=== PATIENT | male | born 1935 | race Caucasian/White ===

== ENCOUNTER 2017-02-03 12:47 | Outpatient (CLI) | payer MEDICARE, OTHER ==
[~2017-02-03] VITALS: Ht 170.2 cm; Wt 68.9 kg
[~2017-02-03 12:47] MED LIST: ALFU10TA11 PO; ALFUZOSIN HCL PO; AMLO10TA PO; AMLO10TA2 PO; APIX5TAB PO; ASP81CT PO; ATOR40TA PO; ATOR40TA70 PO; BETH25TA PO; Bethanechol Chl PO; DEXL60CA PO; DIGO250T15 PO; DILT240C90 PO; MELO7.5T46 PO; METF500T4 PO; METO-272 PO; METO50TA7; MTF500T PO; OMEP20CA12 PO; OMEP40CA36 PO; OMG1KC; VALS160T2 PO; VALS320T14 PO; VLS80C PO
[2017-02-03] MEDS ORDERED: LIDOCAINE 1% INJ 20 ML (XYLOCAINE) VIAL ONE (12:56)
[2017-02-03] MEDS ORDERED: TRIAMCINOLONE ACET (KENALOG-40) 40 MG/ML 1 ML VIAL ONE (12:56)
[2017-02-03] MEDS ORDERED: BUPIVACAINE 0.25% 30 ML (SENSORCAINE) VIAL ONE (12:56)
[2017-02-03 13:09] VITALS: BP 155/67
[2017-02-03 13:48] VITALS: BP 172/75
--- NOTE | 2017-02-03 14:33 | Pain Medicine-Procedure ---
Procedure Pre-Op/Post-Op Diagnosis Diagnosis: sacrococcygeal disorder Indications for Operation Hip pain Attending Surgeon Fausto Procedure Date of Service: Feb 03, 2017 Procedure: Flouroscopic guided bilateral sacroiliac joint injection PROCEDURE IN DETAIL: After obtaining informed consent from the patient, the patient's chart was reviewed. The patient was then brought to the procedure room and placed in the prone position. A time out was performed. The back was prepped with antiseptic solution and under fluoroscopic guidance the patient's sacroiliac joint on both sides was identified. Attention was first turned to the right sacroiliac joint injection where 2 mL's of 1% lidocaine was used to anesthetize the skin and then two 22-gauge 3.5 inch spinal needles were inserted and advanced under flouroscopic guidance until they were in the lower 1 /3 of the right sacroiliac joint. Next, attention was then turned to the left sacroiliac joint injection where 2 mL's of 1% lidocaine was used to anesthetize the skin and then two 22-gauge 3.5 inch spinal needles were inserted and advance under flouroscopic guidance until they were in the lower 1/3 of the sacroiliac joint on the left side. After negative aspiration, each needle was injected with 40 mg of Kenalog along with 2 mL's of 0.25% marcaine. All needles were then flushed with 1% lidocaine and then removed. Band-Aids were applied to all the sites and the patient tolerated the procedure well and was taken to the recovery area in stable condition. Complications None ERIKA PARKER MD Feb 03, 2017 2:33 pm
== END 2017-02-03 13:50 ==
LOC: CARD 12:47
PROVIDERS: ATTEND Pain Medicine Pain Medicine
DX: M53.3 Sacrococcygeal disorders, not elsewhere classified (principal); Z79.01 Long term (current) use of anticoagulants; Z79.899 Other long term (current) drug therapy
CPT/HCPCS: 27096

== ENCOUNTER → 2017-06-06 | Outpatient (CLI) | payer MEDICARE, OTHER ==
--- NOTE | 2017-06-06 11:24 | Diagnostic Imaging Report ---
EXAMINATION: Modified barium swallow. Indication: Dysphagia Different consistencies of fluid and food was given mixed with barium and swallowing was visualized under fluoroscopy. FLUOROSCOPY TIME: 39 seconds FINDINGS: No aspiration seen. There is however a Zenker's diverticulum seen with its opening at C5 level and projecting anterior to C5 and C6 vertebral bodies with an impression upon the upper esophagus. IMPRESSION: Zenker's diverticulum . Report was faxed to office of Dr. Howe by tamia at 11:25 am. Dictated by: Dictated on workstation # [id number]
== END ==
LOC: RAD 10:17
PROVIDERS: ATTEND Family Medicine
DX: K22.5 Diverticulum of esophagus, acquired (principal)
CPT/HCPCS: 74230

== ENCOUNTER 2017-07-07 00:39 | Emergency (ER) | payer MEDICARE, OTHER ==
[~2017-07-07] VITALS: Ht 170.2 cm; Wt 68.0 kg
[2017-07-07 01:45] LABS: BASOPHILS # (AUTO) 0.1 10^3/uL (0.0-0.1); BASOPHILS % (AUTO) 1 % (0-10); EOSINOPHILS # (AUTO) 0.4 10^3/uL (0.0-0.3); EOSINOPHILS % (AUTO) 6 % (0-10); LYMPHOCYTES # (AUTO) 1.5 X 10^3 (1.0-4.0); LYMPHOCYTES % (AUTO) 24 % (12-44); MEAN CORPUSCULAR HEMOGLOBIN 33 PG (25-34); MEAN CORPUSCULAR HGB CONC 33 G/DL (32-36); MEAN CORPUSCULAR VOLUME 99 FL (80-99); MEAN PLATELET VOLUME 10.2 FL (7.4-10.4); MONOCYTES # (AUTO) 0.8 X 10^3 (0.0-1.0); MONOCYTES % (AUTO) 14 % (0-12); NEUTROPHILS # (AUTO) 3.5 X 10^3 (1.8-7.8); NEUTROPHILS % (AUTO) 56 % (42-75); PLATELET COUNT 187 10^3/uL (130-400); RED BLOOD COUNT 4.58 10^6/uL (4.35-5.85); RED CELL DISTRIBUTION WIDTH 12.5 % (10.0-14.5); WHITE BLOOD COUNT 6.2 10^3/uL (4.3-11.0)
[2017-07-07 01:45] LABS: BILIRUBIN,URINE NEGATIVE (NEGATIVE); KETONES,URINE NEGATIVE (NEGATIVE); LEUKOCYTE ESTERASE ,URINE 2+ (NEGATIVE); NITRITE,URINE NEGATIVE (NEGATIVE); PH,URINE 6.5 (5-9); PROTEIN,URINE NEGATIVE (NEGATIVE); UROBILINOGEN,URINE NORMAL (NORMAL)
[2017-07-07 01:51] LABS: SQUAMOUS EPITHELIAL CELL,UR RARE /HPF; WBC,URINE RARE /HPF
[2017-07-07] MEDS ORDERED: KETO120S11 (02:01)
[2017-07-07 02:03] LABS: ALANINE AMINOTRANSFERASE 19 U/L (0-55); ANION GAP 10 MMOL/L (5-14); ASPARTATE AMINO TRANSFERASE 19 U/L (5-34); BILIRUBIN,TOTAL 0.4 MG/DL (0.1-1.0); BLOOD UREA NITROGEN 10 MG/DL (7-18); BUN/CREATININE RATIO 13; CALCIUM 9.4 MG/DL (8.5-10.1); CARBON DIOXIDE 23 MMOL/L (21-32); CHLORIDE 105 MMOL/L (98-107); CREATININE SERUM 0.79 MG/DL (0.60-1.30); GFR ESTIMATED > 60; GLUCOSE 98 MG/DL (70-105); POTASSIUM 4.1 MMOL/L (3.6-5.0); SODIUM 138 MMOL/L (135-145); TOTAL PROTEIN 6.9 GM/DL (6.4-8.2); hs C REACTIVE PROTEIN 0.12 MG/DL (0.00-0.50)
--- NOTE | 2017-07-07 03:14 | ED General ---
General Chief Complaint: General Problems/Pain Stated Complaint: CHILLS SWEATS Nursing Triage Note: PT AWOKE AFTER MIDNIGHT FEELING SWEATY THEN FELT CHILLED. PT HAS NOT TAKEN A TEMPERATURE AT HOME. NO URINARY SX, NO COUGH. TEMP 97.2 TYMPANIC, 98.2 TEMPORAL NOW Nursing Sepsis Screen: No Definite Risk Source of Information: Patient Exam Limitations: No Limitations History of Present Illness Time Seen by Provider: 00:49 Initial Comments This 81-year-old gentleman presents to the emergency room with complaints of persistent chills this evening. He woke up not feeling well and had sweats and chills without any measured fever. He denies any other symptoms such as cough, pain, dysuria, etc. By the time of my physical assessment, he was feeling much improved. Allergies and Home Medications Allergies Coded Allergies: No Known Drug Allergies (Verified , 07/23/16) Home Medications Alfuzosin HCl 10 Mg Tab.er.24h, 10 MG PO DAILY@1900, (Reported) Amlodipine Besylate 10 Mg Tablet, 10 MG PO DAILY, (Reported) Apixaban 5 Mg Tablet, 5 MG PO BID, #60 Ref 5 Prescribed by: CAMELIA MAYES on 07/24/16 1628 Aspirin 81 Mg Tablet, 81 MG PO HS, (Reported) Atorvastatin Calcium 40 Mg Tablet, 40 MG PO HS, (Reported) Bethanechol Chloride 25 Mg Tablet, 25 MG PO QID, (Reported) Dexlansoprazole 60 Mg Cap.dr.bp, 60 MG PO DAILY, (Reported) Digoxin 250 Mcg Tablet, 0.25 MG PO DAILY, #30 Ref 4 Prescribed by: CRISS FOSTER on 07/27/16 1314 Diltiazem HCl 240 Mg Cap.er.24h, 240 MG PO DAILY, #30 Ref 4 Prescribed by: CRISS FOSTER on 07/27/16 1314 Ketoconazole 120 Ml Shampoo, (Reported) Metformin HCl 500 Mg Tablet, 500 MG PO BID, (Reported) Metoprolol Succinate 50 Mg Tab.er.24h, 50 MG PO DAILY, (Reported) Valsartan 320 Mg Tablet, 320 MG PO DAILY, (Reported) Constitutional: see HPI EENTM: no symptoms reported Respiratory: no symptoms reported Cardiovascular: no symptoms reported Gastrointestinal: no symptoms reported Genitourinary: no symptoms reported Musculoskeletal: no symptoms reported Skin: no symptoms reported Psychiatric/Neurological: No Symptoms Reported Hematologic/Lymphatic: No Symptoms Reported Past Bmwhqcv-Sdldnm-Zwnbqr Hx Patient Social History Alcohol Use: Occasionally Uses Recreational Drug Use: No Smoking Status: Former Smoker Former Smoker, Quit: Jul 26, 1984 Recent Foreign Travel: No Contact w/Someone Who Travel: No Recent Infectious Disease Expo: No Recent Hopitalizations: No Immunizations Up To Date Tetanus Booster (TDap): Unknown Date of Pneumonia Vaccine: Jul 27, 2013 Date of Influenza Vaccine: Jul 09, 2016 Seasonal Allergies Seasonal Allergies: No Surgeries History of Surgeries: Yes (CATARACTS,BACK SURG., ING HERNIA REPAIR, R ROTATOR CUFF) Surgeries: Neurological, Orthopedic Respiratory History of Respiratory Disorde: No Currently Using CPAP: No Currently Using BIPAP: No Cardiovascular History of Cardiac Disorders: Yes (CARDIOMEGALY, PAROXYSMAL A FIB, RHEUMATIC VALVE DZ: TRICUSPID, MITRAL) Cardiac Disorders: Atrial Fibrillation, Coronary Artery Disease, High Cholesterol, Hypertension, Valvular Heart Disease Neurological History of Neurological Disord: Yes (DYSPHAGIA HX) Reproductive System Hx Reproductive Disorders: No Sexually Transmitted Disease: No HIV/AIDS: No Genitourinary Genitourinary Disorders: Benign Prostatic Hyperpl Gastrointestinal History of Gastrointestinal Di: Yes Gastrointestinal Disorders: Gastroesophageal Reflux, Diverticulosis Musculoskeletal History of Musculoskeletal Dis: Yes (ORTHO SURGERIES ABOVE) Musculoskeletal Disorders: Arthritis, Chronic Back Pain Endocrine History of Endocrine Disorders: Yes (DM TYPE II) Endocrine Disorders: Diabetes, Non-Insulin dep HEENT HEENT Disorders: Cataract Loss of Vision: Denies Hearing Impairment: Denies Cancer History of Cancer: No Psychosocial History of Psychiatric Problem: No Integumentary History of Skin or Integumenta: No Blood Transfusions History of Blood Disorders: No Family Medical History Significant Family History: No Pertinent Family Hx Family Medial History: FH: liver disease 19 MOTHER FH: lung cancer 19 FATHER Physical Exam Vital Signs Vital Sign - Last 12Hours 07/07/17 01:17 Temp 98.2 Pulse 82 Resp 20 B/P (MAP) 173/76 Pulse Ox 95 O2 Delivery Room Air Capillary Refill : Less Than 3 Seconds General Appearance: No Apparent Distress, WD/WN HEENT: PERRL/EOMI, Normal ENT Inspection, Pharynx Normal Neck: Normal Inspection Respiratory: Lungs Clear, Normal Breath Sounds, No Accessory Muscle Use, No Respiratory Distress Cardiovascular: Regular Rate, Rhythm, No Edema, No Murmur Gastrointestinal: Normal Bowel Sounds, Non Tender, Soft Extremity: Normal Inspection, No Pedal Edema Neurologic/Psychiatric: Alert, Oriented x3, No Motor/Sensory Deficits, 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 He was afebrile. He was dismissed home with no further evaluation or interventions at his request. Departure Impression Impression: Primary Impression: Chills Disposition: 01 HOME, SELF-CARE Condition: Improved Departure-Patient Inst. Decision time for Depature: 03:05 Referrals: ALBARO BRADFORD DO (PCP/Family) Primary Care Physician Patient Instructions: NO INSTRUCTIONS GIVEN Add. Discharge Instructions: Return to care if symptoms worsen. Follow up with your primary care provider if symptoms persist. All discharge instructions reviewed with patient and/or family. Voiced understanding. PRASHANTH AMOS MD Jul 07, 2017 03:14
[2017-07-07 03:28] VITALS: BP 146/71
== END 2017-07-07 03:28 | disposition home or self-care (01) ==
LOC: EDUNIT# 00:39 → ER 00:42
DX: R68.83 Chills (without fever) (principal); I48.0 Paroxysmal atrial fibrillation; I25.10 Atherosclerotic heart disease of native coronary artery without angina pectoris; E78.00 Pure hypercholesterolemia, unspecified; I10 Essential (primary) hypertension; N40.0 Benign prostatic hyperplasia without lower urinary tract symptoms; M19.90 Unspecified osteoarthritis, unspecified site; E11.9 Type 2 diabetes mellitus without complications; Z80.1 Family history of malignant neoplasm of trachea, bronchus and lung; Z87.19 Personal history of other diseases of the digestive system; Z95.2 Presence of prosthetic heart valve; Z87.891 Personal history of nicotine dependence; Z79.84 Long term (current) use of oral hypoglycemic drugs; Z79.01 Long term (current) use of anticoagulants; Z79.82 Long term (current) use of aspirin
CPT/HCPCS: 36415; 80053; 81000; 85025; 86141

== ENCOUNTER → 2017-07-29 | Outpatient (CLI) | payer MEDICARE, OTHER ==
[~2017-07-29] MED LIST changes: +KETO120S11
== END ==
LOC: RAD 13:54
PROVIDERS: ATTEND Family Medicine
DX: J43.9 Emphysema, unspecified (principal); J84.10 Pulmonary fibrosis, unspecified
CPT/HCPCS: 71020

== ENCOUNTER 2017-08-04 17:06 | Inpatient (IN) | payer MEDICARE, OTHER ==
[~2017-08-04] VITALS: Ht 170.2 cm; Wt 61.3 kg
[~2017-08-04 17:06] MED LIST changes: -KETO120S11; +KETO120S11 TOP
[2017-08-04] MEDS ORDERED: ADENOSINE 6 MG/2 ML (ADENOCARD) VIAL IV ONE (17:20)
[2017-08-04] MEDS ORDERED: DILTIAZEM 100 MG/VIAL (CARDIZEM) ADD-VANTAGE IV ONE (17:25)
[2017-08-04] MEDS ORDERED: SODIUM CHLORIDE (ADD-VANTAGE) 100 ML IV ONE (17:26)
[2017-08-04 17:39] LABS: BASOPHILS % (AUTO) 0 % (0-10); EOSINOPHILS % (AUTO) 0 % (0-10); LYMPHOCYTES # (AUTO) 0.5 X 10^3 (1.0-4.0); LYMPHOCYTES % (AUTO) 2 % (12-44); MEAN CORPUSCULAR HEMOGLOBIN 32 PG (25-34); MEAN CORPUSCULAR HGB CONC 34 G/DL (32-36); MEAN CORPUSCULAR VOLUME 94 FL (80-99); MEAN PLATELET VOLUME 10.5 FL (7.4-10.4); MONOCYTES # (AUTO) 1.9 X 10^3 (0.0-1.0); MONOCYTES % (AUTO) 10 % (0-12); NEUTROPHILS # (AUTO) 17.4 X 10^3 (1.8-7.8); NEUTROPHILS % (AUTO) 88 % (42-75); PLATELET COUNT 267 10^3/uL (130-400); RED BLOOD COUNT 4.39 10^6/uL (4.35-5.85); RED CELL DISTRIBUTION WIDTH 12.9 % (10.0-14.5); WHITE BLOOD COUNT 19.8 10^3/uL (4.3-11.0)
[2017-08-04 17:44] LABS: INR 2.6 (0.8-1.4); PROTHROMBIN TIME PATIENT 27.7 SEC (12.2-14.7)
[2017-08-04] MEDS ORDERED: DILTIAZEM DRIP 100 MG in SODIUM CHLORIDE (ADD-VANTAGE) 100 ML IV SCH (17:45)
[2017-08-04 17:55] LABS: ALANINE AMINOTRANSFERASE 26 U/L (0-55); ALBUMIN 3.6 GM/DL (3.2-4.5); ANION GAP 11 MMOL/L (5-14); ASPARTATE AMINO TRANSFERASE 30 U/L (5-34); BILIRUBIN,TOTAL 0.8 MG/DL (0.1-1.0); BLOOD UREA NITROGEN 30 MG/DL (7-18); BUN/CREATININE RATIO 26; CALCIUM 9.6 MG/DL (8.5-10.1); CARBON DIOXIDE 22 MMOL/L (21-32); CHLORIDE 96 MMOL/L (98-107); CREATININE SERUM 1.15 MG/DL (0.60-1.30); GFR ESTIMATED > 60; GLUCOSE 166 MG/DL (70-105); MAGNESIUM 1.8 MG/DL (1.8-2.4); POTASSIUM 3.9 MMOL/L (3.6-5.0); SODIUM 129 MMOL/L (135-145)
--- NOTE | 2017-08-04 17:59 | Diagnostic Imaging Report ---
INDICATION: Feeling different while walking, dizziness, no chest complaints. COMPARISON STUDY: Chest two views from July 29. FINDINGS: Frontal and lateral views of the chest again demonstrate diffuse interstitial fibrosis. New infiltrate or atelectasis are present in the left base. Heart size is slightly enlarged. Vascularity is within normal limits. There is calcification of the aorta. Postoperative changes are seen in the right shoulder. IMPRESSION: Emphysema with new infiltrates or atelectasis in the left lung base. Dictated by: Dictated on workstation # [id number]
[2017-08-04 18:03] LABS: BAND NEUTROPHILS 8 %; BASOPHILS % (MANUAL) 0 %; EOSINOPHILS % (MANUAL) 0 %; LYMPHOCYTES % (MANUAL) 0 %; NEUTROPHILS % (MANUAL) 83 %; hs C REACTIVE PROTEIN 23.47 MG/DL (0.00-0.50)
[2017-08-04] MEDS ORDERED: NS IV 500 ML 500 ML IV ONE (18:06)
--- NOTE | 2017-08-04 18:10 | ED General ---
General Chief Complaint: Cardiac/General Problems Stated Complaint: DIFF WALKING/LOSS OF APPETITE Nursing Triage Note: Had esophegeal sx 2 weeks ago. healing incisions to left side of neck. C/O weankness and legs buckling since last night. did fall once but no loc or head injury- no injury noted. SOA noted. Required assist in restroom- unable to give urine sample Nursing Sepsis Screen: No Definite Risk Source of Information: Patient, Family, Old Records Exam Limitations: No Limitations (PRASHANTH AMOS MD) History of Present Illness Time Seen by Provider: 17:16 Initial Comments This 81-year-old gentleman presents to the emergency room with complaints of feeling weak. He was seen in Dr. Bradford's office and found to have tachycardia. He had a Zenker's diverticulum operated on by Dr. Estrada July 24. He has had some difficulty swallowing, particularly pills. He does not have any trouble swallowing water. He reports that yesterday his legs "buckled" and he fell without injury. He appears dyspneic during my assessment. Heart rate on the monitor is noted to be in the 150s and regular. Neither patient nor family recalled having any prior problems with arrhythmia. However, review of chart it is noted that he had atrial tachycardia previously. In fact he sees Dr. Hobson and is on Cardizem, Toprol-XL, digoxin, and Eliquis. He reports compliance with all of his medications. Patient has had some cough without fever. (PRASHANTH AMOS MD) Allergies and Home Medications Allergies Coded Allergies: No Known Drug Allergies (Verified , 08/04/17) Home Medications Alfuzosin HCl 10 Mg Tab.er.24h, 10 MG PO DAILY@1900, (Reported) Amlodipine Besylate 10 Mg Tablet, 10 MG PO DAILY, (Reported) Apixaban 5 Mg Tablet, 5 MG PO BID, #60 Ref 5 Prescribed by: CAMELIA MAYES on 07/24/16 1628 Aspirin 81 Mg Tablet, 81 MG PO HS, (Reported) Atorvastatin Calcium 40 Mg Tablet, 40 MG PO HS, (Reported) Bethanechol Chloride 25 Mg Tablet, 25 MG PO QID, (Reported) Dexlansoprazole 60 Mg Blaine., 60 MG PO DAILY, (Reported) Digoxin 250 Mcg Tablet, 0.25 MG PO DAILY, #30 Ref 4 Prescribed by: CRISS HOBSON on 07/27/16 1314 Diltiazem HCl 240 Mg Cap.er.24h, 240 MG PO DAILY, #30 Ref 4 Prescribed by: CRISS HOBSON on 07/27/16 1314 Ketoconazole 120 Ml Shampoo, (Reported) Metformin HCl 500 Mg Tablet, 500 MG PO BID, (Reported) Metoprolol Succinate 50 Mg Tab.er.24h, 50 MG PO DAILY, (Reported) Valsartan 320 Mg Tablet, 320 MG PO DAILY, (Reported) Constitutional: see HPI, weakness EENTM: no symptoms reported Respiratory: see HPI Cardiovascular: see HPI Gastrointestinal: see HPI Genitourinary: no symptoms reported Musculoskeletal: no symptoms reported Skin: no symptoms reported Psychiatric/Neurological: No Symptoms Reported Hematologic/Lymphatic: No Symptoms Reported Immunological/Allergic: no symptoms reported (PRASHANTH AMOS MD) Past Rxbctqi-Gzwhkj-Sukoyr Hx Patient Social History Alcohol Use: Denies Use Recreational Drug Use: No Smoking Status: Former Smoker Former Smoker, Quit: Jul 26, 1984 Recent Foreign Travel: No Contact w/Someone Who Travel: No Recent Infectious Disease Expo: No Recent Hopitalizations: No Physical Abuse: No Sexual Abuse: No Mistreated: No Fear: No (PRASHANTH AMOS MD) Immunizations Up To Date Tetanus Booster (TDap): Unknown Date of Pneumonia Vaccine: Jul 27, 2013 Date of Influenza Vaccine: Jul 09, 2016 (PRASHANTH AMOS MD) Seasonal Allergies Seasonal Allergies: No (PRASHANTH AMOS MD) Surgeries History of Surgeries: Yes (CATARACTS,BACK SURG., ING HERNIA REPAIR, R ROTATOR CUFF, Zenker diverticulum) Surgeries: Neurological, Orthopedic (PRASHANTH AMOS MD) Respiratory History of Respiratory Disorde: No Currently Using CPAP: No Currently Using BIPAP: No (PRASHANTH AMOS MD) Cardiovascular History of Cardiac Disorders: Yes (CARDIOMEGALY, PAROXYSMAL A FIB, RHEUMATIC VALVE DZ: TRICUSPID, MITRAL) Cardiac Disorders: Atrial Fibrillation, Coronary Artery Disease, High Cholesterol, Hypertension, Valvular Heart Disease (PRASHANTH AMOS MD) Neurological History of Neurological Disord: Yes (DYSPHAGIA HX) (PRASHANTH AMOS MD) Reproductive System Hx Reproductive Disorders: No Sexually Transmitted Disease: No HIV/AIDS: No (PRASHANTH AMOS MD) Genitourinary Genitourinary Disorders: Benign Prostatic Hyperpl (PRASHANTH AMOS MD) Gastrointestinal History of Gastrointestinal Di: Yes Gastrointestinal Disorders: Gastroesophageal Reflux, Diverticulosis (PRASHANTH AMOS MD) Musculoskeletal History of Musculoskeletal Dis: Yes (ORTHO SURGERIES ABOVE) Musculoskeletal Disorders: Arthritis, Chronic Back Pain (PRASHANTH AMOS MD) Endocrine History of Endocrine Disorders: Yes (DM TYPE II) Endocrine Disorders: Diabetes, Non-Insulin dep (PRASHANTH AMOS MD) HEENT History of HEENT Disorders: Yes HEENT Disorders: Cataract Loss of Vision: Denies Hearing Impairment: Denies (PRASHANTH AMOS MD) Cancer History of Cancer: No (PRASHANTH AMOS MD) Psychosocial History of Psychiatric Problem: No Suicide Risk Score: 0 (PRASHANTH AMOS MD) Integumentary History of Skin or Integumenta: No (PRASHANTH AMOS MD) Blood Transfusions History of Blood Disorders: No (PRASHANTH AMOS MD) Family Medical History Family Medial History: FH: liver disease 19 MOTHER FH: lung cancer 19 FATHER (PRASHANTH AMOS MD) Family Medial History: FH: liver disease 19 MOTHER FH: lung cancer 19 FATHER (MELISSA DOLAN) Physical Exam Vital Signs Vital Sign - Last 12Hours 08/04/17 08/04/17 08/04/17 17:15 17:39 18:20 Temp 99.2 Pulse 150 Resp 30 B/P (MAP) 142/63 Pulse Ox 95 O2 Delivery Nasal Cannula O2 Flow Rate 2.00 FiO2 100 (MELISSA DOLAN) Vital Signs Capillary Refill : Less Than 3 Seconds (PRASHANTH AMOS MD) General Appearance: No Apparent Distress HEENT: PERRL/EOMI, Normal ENT Inspection, Pharynx Normal Neck: Other (well healing incision on the left neck with localized edema) Respiratory: Lungs Clear, Normal Breath Sounds, No Accessory Muscle Use, No Respiratory Distress, Other (tachypnea without respiratory distress) Cardiovascular: No Edema, No Murmur, Tachycardia Gastrointestinal: Normal Bowel Sounds, Non Tender, Soft Extremity: Normal Inspection, No Pedal Edema Neurologic/Psychiatric: Alert, Oriented x3, No Motor/Sensory Deficits, 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, 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 Skin: Normal Color, Warm/Dry (PRASHANTH AMOS MD) Focused Exam Evaluation Lactate Level Laboratory Tests 08/04/17 18:10: Lactic Acid Level 3.04*H 08/04/17 20:15: Lactic Acid Level 1.83 (MELISSA DOLAN) Lactic Acid Level (MELISSA DOLAN) Progress/Results/Core Measures Results/Orders Lab Results Laboratory Tests Test 08/04/17 17:25 08/04/17 18:10 08/04/17 20:15 Range/Units White Blood Count 19.8 H 4.3-11.0 10^3/uL Red Blood Count 4.39 4.35-5.85 10^6/uL Hemoglobin 13.9 13.3-17.7 G/DL Hematocrit 41 40-54 % Mean Corpuscular Volume 94 80-99 FL Mean Corpuscular Hemoglobin 32 25-34 PG Mean Corpuscular Hemoglobin Concent 34 32-36 G/DL Red Cell Distribution Width 12.9 10.0-14.5 % Platelet Count 267 130-400 10^3/uL Mean Platelet Volume 10.5 H 7.4-10.4 FL Neutrophils (%) (Auto) 88 H 42-75 % Lymphocytes (%) (Auto) 2 L 12-44 % Monocytes (%) (Auto) 10 0-12 % Eosinophils (%) (Auto) 0 0-10 % Basophils (%) (Auto) 0 0-10 % Neutrophils # (Auto) 17.4 H 1.8-7.8 X 10^3 Lymphocytes # (Auto) 0.5 L 1.0-4.0 X 10^3 Monocytes # (Auto) 1.9 H 0.0-1.0 X 10^3 Eosinophils # (Auto) 0.0 0.0-0.3 10^3/uL Basophils # (Auto) 0.0 0.0-0.1 10^3/uL Neutrophils % (Manual) 83 % Lymphocytes % (Manual) 0 % Monocytes % (Manual) 9 % Eosinophils % (Manual) 0 % Basophils % (Manual) 0 % Band Neutrophils 8 % Blood Morphology Comment NORMAL Prothrombin Time 27.7 H 12.2-14.7 SEC INR Comment 2.6 H 0.8-1.4 Activated Partial Thromboplast Time 34 24-35 SEC Sodium Level 129 L 135-145 MMOL/L Potassium Level 3.9 3.6-5.0 MMOL/L Chloride Level 96 L 98-107 MMOL/L Carbon Dioxide Level 22 21-32 MMOL/L Anion Gap 11 5-14 MMOL/L Blood Urea Nitrogen 30 H 7-18 MG/DL Creatinine 1.15 0.60-1.30 MG/DL Estimat Glomerular Filtration Rate > 60 BUN/Creatinine Ratio 26 Glucose Level 166 H 70-105 MG/DL Calcium Level 9.6 8.5-10.1 MG/DL Magnesium Level 1.8 1.8-2.4 MG/DL Total Bilirubin 0.8 0.1-1.0 MG/DL Aspartate Amino Transf (AST/SGOT) 30 5-34 U/L Alanine Aminotransferase (ALT/SGPT) 26 0-55 U/L Alkaline Phosphatase 69 40-136 U/L Myoglobin 162.2 H 10.0-92.0 NG/ML Troponin I < 0.30 <0.30 NG/ML C-Reactive Protein High Sensitivity 23.47 H 0.00-0.50 MG/DL B-Type Natriuretic Peptide 863.1 H <100.0 PG/ML Total Protein 7.0 6.4-8.2 GM/DL Albumin 3.6 3.2-4.5 GM/DL TSH Bent Testing 1.01 0.35-4.94 UIU/ML Digoxin Level 0.79 L 0.80-2.00 NG/ML Lactic Acid Level 3.04 *H 1.83 0.50-2.00 MMOL/L (MELISSA DOLAN) My Orders Orders - MELISSA DOLAN Blood Culture (08/04/17 18:06) Sputum Culture (08/04/17 18:06) Saline Lock/Iv-Start (08/04/17 18:06) Ns Iv 500 Ml (Sodium Chloride 0.9%) (08/04/17 18:06) Lactic Acid Analyzer (08/04/17 18:06) Ns Iv 1000 Ml (Sodium Chloride 0.9%) (08/04/17 18:15) Piperacillin Sodium/Tazobactam (Zosyn Vi (08/04/17 19:00) (MELISSA DOLAN) Medications Given in ED Current Medications Medications Dose Ordered Sig/Jamal Route Start Time Stop Time Status Last Admin Dose Admin Adenosine 6 mg STK-MED ONCE IV 08/04/17 17:20 08/04/17 17:28 DC 08/04/17 17:26 6 MG Sodium Chloride 500 ml @ 0 mls/hr Q0M ONCE IV 08/04/17 18:06 08/04/17 18:09 DC 08/04/17 18:17 0 MLS/HR Sodium Chloride 1,000 ml @ 0 mls/hr Q0M ONCE IV 08/04/17 18:15 08/04/17 18:18 DC 08/04/17 19:06 0 MLS/HR (MELISSA DOLAN) Vital Signs/I&O Vital Sign - Last 12Hours 08/04/17 08/04/17 08/04/17 08/04/17 17:15 17:39 17:39 18:20 Temp 99.2 Pulse 150 151 152 Resp 30 20 28 B/P (MAP) 142/63 110/64 123/69 Pulse Ox 95 95 92 95 O2 Delivery Nasal Cannula Nasal Cannula Nasal Cannula O2 Flow Rate 2.00 2.00 2.00 2.00 FiO2 100 08/04/17 08/04/17 08/04/17 08/04/17 19:05 19:26 20:00 20:15 Temp 98.8 100.5 Pulse 138 148 148 Resp 18 17 26 B/P (MAP) 120/75 129/85 Pulse Ox 96 97 94 90 O2 Delivery Nasal Cannula Nasal Cannula Nasal Cannula Nasal Cannula O2 Flow Rate 2.00 2.00 5.00 5.00 08/04/17 08/04/17 08/04/17 08/04/17 20:15 20:38 20:39 21:00 Temp 100.5 Pulse 148 102 122 122 Resp 26 19 B/P (MAP) 129/85 109/65 Pulse Ox 90 91 95 O2 Delivery Nasal Cannula Nasal Cannula O2 Flow Rate 5.00 5.00 08/04/17 08/04/17 08/04/17 08/04/17 21:49 22:00 23:00 23:20 Pulse 98 110 126 Resp 18 21 B/P (MAP) 131/55 132/64 Pulse Ox 94 91 97 O2 Delivery Nasal Cannula Nasal Cannula Nasal Cannula O2 Flow Rate 5.00 5.00 5.00 08/05/17 08/05/17 08/05/17 00:00 00:00 00:56 Pulse 80 96 Resp 25 B/P (MAP) 138/57 Pulse Ox 95 95 O2 Delivery Nasal Cannula Nasal Cannula O2 Flow Rate 5.00 5.00 (MELISSA DOLAN) Blood Pressure Mean: 89 Progress Note : Time: 18:07 Progress Note Care of this patient was transferred to Dr. Dolan at this time at the bedside. Leukocytosis is noted. We will be searching for source of infection. Cardizem drip at 10 mg per hour was started. Atrial flutter was confirmed by rhythm monitoring after administration of adenosine 6 mg. (PRASHANTH AMOS MD) Progress Note : Time: 18:21 Progress Note Assume care of the patient at shift change from Dr. Larios. Patient is doing well and an A. fib with RVR. He has a mildly productive cough that he says he's had for about a month or so. He says he recently had an x-ray done about a week ago from his PCP which did not demonstrate an ammonia but this with the PCP was looking for. Today we see a infiltrate versus atelectasis on the left lower side and he has a white count of 19,000 and productive cough. We will cover him with Zosyn given his recent Zenker's diverticulum resection and very remote possibility that there could be some GI involvement even though the pneumonia is on the left side. we will collect cultures and give him some fluid IV, 1.5 L. We will start with half a liter and he accepts that without any evidence of heart failure when given the other Liter. (MELISSA DOLAN) ECG Initial ECG Impression Date: Aug 04, 2017 Initial ECG Impression Time: 17:22 Initial ECG Rate: 151 Comment Regular tachycardia suspicious for atrial flutter. Rate is too slow for SVT and too fast for sinus tachycardia. No overt ST elevation or depression. (PRASHANTH AMOS MD) Diagnostic Imaging Diagonstic Imaging: Xray Plain Films/CT/US/NM/MRI: chest Comments Chest x-ray viewed by me and report reviewed. See report below: NAME: HARSHIL RHODES [facility] REC#: [id number] PT STATUS: REG ER : 1935 PHYSICIAN: PRASHANTH AMOS MD ADMIT DATE: 08/04/17/ER Signed Date of Exam:08/04/17 CHEST 1 VIEW, AP/PA ONLY INDICATION: Feeling different while walking, dizziness, no chest complaints. COMPARISON STUDY: Chest two views from July 29. FINDINGS: Frontal and lateral views of the chest again demonstrate diffuse interstitial fibrosis. New infiltrate or atelectasis are present in the left base. Heart size is slightly enlarged. Vascularity is within normal limits. There is calcification of the aorta. Postoperative changes are seen in the right shoulder. IMPRESSION: Emphysema with new infiltrates or atelectasis in the left lung base. Dictated by: Dictated on workstation # [id number] Dict: 08/04/171751 Trans: 08/04/171807 [id number] Interpreted by: SEE ESCAMILLA MD Electronically signed by: SEE ESCAMILLA MD 08/04/171807 (PRASHANTH AMOS MD) Departure Communication (Admissions) Time/Spoke to Consulting Phy: 17:46 Communication/Consulting Case reviewed with Dr[facility] Hobson. [facility] (PRASHANTH AMOS MD) Time/Spoke to Admitting Phy: 18:[address] Bradford and discussed the lab, clinical findings, imaging and diagnoses. He recommends we consult speech therapy and go ahead and order physical therapy morning. He is okay with keeping the medicines going and he thinks is more likely that he has not been taking the digoxin level was low. He agrees with antibiotic choice of Zosyn at this time. He'll see the patient the morning. Time/Spoke to Consulting Phy: 17:46 (MELISSA DOLAN) Impression Impression: Primary Impression: Atrial flutter with rapid ventricular response Additional Impression: Left lower lobe pneumonia Qualified Codes: J18.1 - Lobar pneumonia, unspecified organism Disposition: ADMITTED INPATIENT Condition: Improved Admissions Decision to Admit Reason: Admit from ER (General) Decision to Admit/Date: Aug 04, 2017 Time/Decision to Admit Time: 17:45 (PRASHANTH AMOS MD) Decision to Admit Reason: Admit from ER (General) Decision to Admit/Date: Aug 04, 2017 Time/Decision to Admit Time: 17:45 (MELISSA DOLAN) Departure-Patient Inst. Referrals: ALBARO BRADFORD DO (PCP/Family) Primary Care Physician Copy Copies To 1: ALBARO BRADFORD JOSHUA T MD Aug 04, 2017 18:10 MELISSA DOLAN Aug 04, 2017 18:23
[2017-08-04] MEDS ORDERED: NS IV 1000 ML 1,000 ML IV ONE (18:15)
[2017-08-04 18:18] LABS: MYOGLOBIN SERUM 162.2 NG/ML (10.0-92.0)
[2017-08-04] MEDS ORDERED: PIPERACILLIN SODIUM/TAZOBACTAM 4.5 GM in NS (IVPB) 100 ML IV ONE (19:00)
[2017-08-04 19:05] VITALS: BP 120/75
[2017-08-04 20:15] VITALS: BP 129/85
[2017-08-04] MEDS ORDERED: ONDANSETRON 4 MG/2 ML (SDV) Z0FRAN IV PRN (20:30)
[2017-08-04] MEDS ORDERED: ACETAMINOPHEN 500 MG TAB (TYLENOL) PO PRN (20:30)
[2017-08-04 20:39] VITALS: BP 125/70
[2017-08-04] MEDS ORDERED: CATHETER FLUSH 10 ML SYR IV PRN (20:45)
[2017-08-04] MEDS: DILTIAZEM DRIP 100 MG/NS 100 ML IV SCH ×4 (20:59→23:20)
[2017-08-04 21:00] VITALS: BP 109/65
[2017-08-04] MEDS: APIXABAN 5 MG (ELIQUIS) TABLET PO SCH (21:06)
[2017-08-04] MEDS: ATORVASTATIN 40 MG (LIPITOR) TABLET PO SCH (21:06)
[2017-08-04] MEDS: NS IV 1000 ML 1,000 ML IV SCH (21:06)
[2017-08-04] MEDS ORDERED: meTOprolol 5 MG/5 ML (LOPRESSOR) VIAL IV ONE (21:15)
[2017-08-04] MEDS ORDERED: DIGOXIN 0.25 MG/ML (LANOXIN) 2 ML AMP IV ONE (21:15)
[2017-08-04] MEDS ORDERED: RT-ALBUTEROL/IPRATROPIUM 3 ML (DUONEB) VIAL INH PRN (21:30)
[2017-08-04] MEDS: RT-ALBUTEROL/IPRATROPIUM 3 ML (DUONEB) VIAL INH SCH (21:48)
[2017-08-04 22:00] VITALS: BP 131/55
[2017-08-04 23:00] VITALS: BP 132/64
[2017-08-05] VITALS (24 sets, daily range): BP systolic 87–138; BP diastolic 48–75
[2017-08-05] MEDS: RT-ALBUTEROL/IPRATROPIUM 3 ML (DUONEB) VIAL INH SCH ×4 (03:06→20:09)
[2017-08-05] MEDS: DILTIAZEM DRIP 100 MG/NS 100 ML IV SCH ×4 (04:01→09:11)
[2017-08-05 04:59] LABS: BASOPHILS % (AUTO) 0 % (0-10); EOSINOPHILS % (AUTO) 0 % (0-10); LYMPHOCYTES # (AUTO) 0.8 X 10^3 (1.0-4.0); LYMPHOCYTES % (AUTO) 5 % (12-44); MEAN CORPUSCULAR HEMOGLOBIN 32 PG (25-34); MEAN CORPUSCULAR HGB CONC 34 G/DL (32-36); MEAN CORPUSCULAR VOLUME 94 FL (80-99); MEAN PLATELET VOLUME 10.6 FL (7.4-10.4); MONOCYTES # (AUTO) 1.8 X 10^3 (0.0-1.0); MONOCYTES % (AUTO) 11 % (0-12); NEUTROPHILS # (AUTO) 13.2 X 10^3 (1.8-7.8); NEUTROPHILS % (AUTO) 84 % (42-75); PLATELET COUNT 233 10^3/uL (130-400); RED BLOOD COUNT 4.03 10^6/uL (4.35-5.85); WHITE BLOOD COUNT 15.8 10^3/uL (4.3-11.0)
[2017-08-05 05:30] LABS: ALANINE AMINOTRANSFERASE 26 U/L (0-55); ANION GAP 10 MMOL/L (5-14); ASPARTATE AMINO TRANSFERASE 29 U/L (5-34); BLOOD UREA NITROGEN 22 MG/DL (7-18); BUN/CREATININE RATIO 28; CALCIUM 8.6 MG/DL (8.5-10.1); CARBON DIOXIDE 19 MMOL/L (21-32); CHLORIDE 104 MMOL/L (98-107); CHOLESTEROL 73 MG/DL (< 200); CREATININE SERUM 0.78 MG/DL (0.60-1.30); DIRECT LDL 37 MG/DL (1-129); GFR ESTIMATED > 60; GLUCOSE 116 MG/DL (70-105); MAGNESIUM 1.7 MG/DL (1.8-2.4); POTASSIUM 3.9 MMOL/L (3.6-5.0); SODIUM 133 MMOL/L (135-145); TOTAL PROTEIN 5.7 GM/DL (6.4-8.2); TRIGLYCERIDES 48 MG/DL (<150); VLDL CHOLESTEROL 10 MG/DL (5-40)
[2017-08-05 05:36] LABS: DIGOXIN 1.32 NG/ML (0.80-2.00)
[2017-08-05] MEDS: POTASSIUM CL 10MEQ/50ML IVPB 50 ML IV SCH (05:51)
[2017-08-05] MEDS: MAGNESIUM 1 GM/100 ML IVPB 100 ML IV SCH ×3 (05:51→06:56)
[2017-08-05] MEDS: KCL 20 MEQ TAB (K-DUR) PO SCH (05:52)
--- NOTE | 2017-08-05 06:25 | Pulmonary Consultation ---
History of Present Illness History of Present Illness Date of Consultation 08/05/17 06:24 Time Seen by Provider: 06:25 Date of Admission History of Present Illness 81yo with recent Zenkers diverticulum repair by Dr. Estarda 07/24 presented to ED secondary to worsening SOB, palpitations, weakness. Pt has also had dysphagia worse with pills. Pt was dx with sepsis and admitted to ICU. Allergies and Home Medications Allergies Coded Allergies: No Known Drug Allergies (Verified , 08/04/17) Home Medications Alfuzosin HCl 10 Mg Tab.er.24h, 10 MG PO 1900, (Reported) Apixaban 5 Mg Tablet, 5 MG PO BID, (Reported) Aspirin 81 Mg Tablet.dr, 81 MG PO HS, (Reported) Atorvastatin Calcium 40 Mg Tablet, 40 MG PO HS, (Reported) Bethanechol Chloride 25 Mg Tablet, 25 MG PO QID, (Reported) Dexlansoprazole 60 Mg Cap.dr.bp, 60 MG PO DAILY, (Reported) Digoxin 125 Mcg Tablet, 125 MCG PO DAILY, (Reported) Diltiazem HCl 360 Mg Cap.er.24h, 360 MG PO DAILY for 30 Days, #30 Ref 5 Prescribed by: CAMELIA MAYES on 08/11/17 1206 Hydrocodone/Acetaminophen 1 Each Tablet, 0.5-1 TAB PO Q4H PRN for PAIN-MODERATE, (Reported) Ketoconazole 120 Ml Shampoo, TOP DAILY, (Reported) Losartan Potassium 50 Mg Tablet, 50 MG PO DAILY, (Reported) Metformin HCl 500 Mg Tab.er.24h, 500 MG PO HS, (Reported) Metoprolol Succinate 50 Mg Tab.er.24h, 50 MG PO HS, (Reported) Past Qrxyvbn-Mgzuzc-Ummazx Hx Patient Social History Alcohol Use: Denies Use Recreational Drug Use: No Smoking Status: Former Smoker Former Smoker, Quit: Jul 26, 1984 Recent Foreign Travel: No Contact w/Someone Who Travel: No Recent Infectious Disease Expo: No Recent Hopitalizations: No Physical Abuse: No Sexual Abuse: No Mistreated: No Fear: No Immunizations Up To Date Tetanus Booster (TDap): Unknown Date of Pneumonia Vaccine: Jul 27, 2013 Date of Influenza Vaccine: Jul 09, 2016 Seasonal Allergies Seasonal Allergies: No Surgeries History of Surgeries: Yes Surgeries: Neurological, Orthopedic Respiratory History of Respiratory Disorde: No Currently Using CPAP: No Currently Using BIPAP: No Cardiovascular History of Cardiac Disorders: Yes (CARDIOMEGALY, PAROXYSMAL A FIB, RHEUMATIC VALVE DZ: TRICUSPID, MITRAL) Cardiac Disorders: Atrial Fibrillation, Coronary Artery Disease, High Cholesterol, Hypertension, Valvular Heart Disease Neurological History of Neurological Disord: Yes (DYSPHAGIA HX) Reproductive System Hx Reproductive Disorders: No Sexually Transmitted Disease: No HIV/AIDS: No Genitourinary Genitourinary Disorders: Benign Prostatic Hyperpl Gastrointestinal History of Gastrointestinal Di: Yes Gastrointestinal Disorders: Gastroesophageal Reflux, Diverticulosis Musculoskeletal History of Musculoskeletal Dis: Yes (ORTHO SURGERIES ABOVE) Musculoskeletal Disorders: Arthritis, Chronic Back Pain Endocrine History of Endocrine Disorders: Yes (DM TYPE II) Endocrine Disorders: Diabetes, Non-Insulin dep HEENT History of HEENT Disorders: Yes HEENT Disorders: Cataract Loss of Vision: Denies Hearing Impairment: Denies Cancer History of Cancer: No Psychosocial History of Psychiatric Problem: No Suicide Risk Score: 0 Integumentary History of Skin or Integumenta: No Blood Transfusions History of Blood Disorders: No Family Medical History Family Medial History: FH: liver disease 19 MOTHER FH: lung cancer 19 FATHER Review of Systems Time Seen by Provider: 07:05 Exam Exam Vital Signs Date Time Temp Pulse Resp B/P (MAP) Pulse Ox O2 Delivery O2 Flow Rate FiO2 08/05/17 06:00 83 25 124/48 95 Nasal Cannula 5.00 08/05/17 05:00 93 26 116/55 Nasal Cannula 5.00 08/05/17 04:16 100.6 08/05/17 04:01 103 08/05/17 04:00 96 Nasal Cannula 5.00 08/05/17 04:00 93 17 107/59 93 Nasal Cannula 5.00 08/05/17 03:06 95 Nasal Cannula 5.00 08/05/17 03:00 87 26 115/61 96 Nasal Cannula 5.00 08/05/17 02:00 114 18 123/58 97 Nasal Cannula 5.00 08/05/17 01:00 102 25 124/58 Nasal Cannula 5.00 08/05/17 00:56 96 08/05/17 00:00 95 Nasal Cannula 5.00 08/05/17 00:00 80 25 138/57 95 Nasal Cannula 5.00 08/04/17 23:20 126 08/04/17 23:00 110 21 132/64 97 Nasal Cannula 5.00 08/04/17 22:00 98 18 131/55 91 Nasal Cannula 5.00 08/04/17 21:49 94 Nasal Cannula 5.00 08/04/17 21:00 122 19 109/65 95 Nasal Cannula 5.00 08/04/17 20:39 122 91 08/04/17 20:38 102 08/04/17 20:15 100.5 148 26 129/85 90 Nasal Cannula 5.00 08/04/17 20:15 100.5 148 26 129/85 90 Nasal Cannula 5.00 08/04/17 20:00 94 Nasal Cannula 5.00 08/04/17 19:26 98.8 148 17 97 Nasal Cannula 2.00 08/04/17 19:05 138 18 120/75 96 Nasal Cannula 2.00 08/04/17 18:20 99.2 152 28 123/69 95 Nasal Cannula 2.00 08/04/17 17:39 151 20 110/64 92 2.00 100 08/04/17 17:39 95 Nasal Cannula 2.00 08/04/17 17:15 150 30 142/63 95 Nasal Cannula 2.00 General Appearance: No Apparent Distress HEENT: PERRL/EOMI, Normal ENT Inspection, Pharynx Normal Neck: Other (well healing incision on the left neck with localized edema) Respiratory: Lungs Clear, Normal Breath Sounds, No Accessory Muscle Use, No Respiratory Distress, Other (tachypnea without respiratory distress) Cardiovascular: No Edema, No Murmur, Tachycardia Capillary Refill: Less Than 3 Seconds Extremity: Normal Inspection, No Pedal Edema Neurologic/Psychiatric: Alert, Oriented x3, No Motor/Sensory Deficits, 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
[2017-08-05] MEDS ORDERED: PHARMACY TO DOSE IV SCH (07:00)
--- NOTE | 2017-08-05 07:22 | Consultation-Cardiology ---
HPI-Cardiology Cardiology Consultation Date of Consultation 08/05/17 Date of Admission Time Seen by Provider: 07:00 Indication: Atrial flutter HPI 81 years old gentleman with history of paroxysmal atrial fibrillation/flutter, hypertension hyperlipidemia, underwent surgical repair of Zenker's diverticulum by Dr. Estrada on July 24, 2017. Since the surgery, he has been complaining of generalized weakness, loss of energy, yesterday he was having worsening weakness and shortness of breath. No palpitation, he had an episode with near syncope, no full syncope was reported, denied any chest pain, has been having cough for about 2 months. On admission noted to be in atrial flutter with rapid ventricular response, tachycardia, pneumonia and sepsis. Currently, he is laying down in bed, feeling better, still having weakness, mild dysphagia. Home Medications & Allergies Allergies: Coded Allergies: No Known Drug Allergies (Verified , 08/04/17) Home Medication List Reviewed: Yes LAP-Odhtfr-Jxsajd Hx Patient Social History Marital Status: Employed/Student: retired Alcohol Use: Denies Use Recreational Drug Use: No Smoking Status: Former Smoker Former smoker/When Quit: May 01, 1984 Recent Foreign Travel: No Recent Infectious Disease Expo: No Recent Hopitalizations: No Physical Abuse Screen: No Sexual Abuse: No Immunizations Up To Date Tetanus Booster (TDap): Unknown Date of Pneumonia Vaccine: Jul 27, 2013 Date of Influenza Vaccine: Jul 09, 2016 Past Medical History past medical history as discussed below Family Medical History Family History: FH: liver disease 19 MOTHER FH: lung cancer 19 FATHER Constitutional: see HPI, malaise, weakness EENTM: see HPI, no symptoms reported Respiratory: see HPI, cough, No dyspnea on exertion, No hemoptysis, No orthopnea, No phlegm, short of breath, No stridor, No wheezing, No other Cardiovascular: see HPI, No chest pain, No edema, No Hx of Intervention, No palpitations, syncope, No vascular heart diseas, No other Gastrointestinal: see HPI, dysphagia Genitourinary: no symptoms reported, see HPI Musculoskeletal: no symptoms reported, see HPI Skin: no symptoms reported, see HPI Psychiatric/Neurological: No Symptoms Reported, See HPI Reviewed Test Results Reviewed Test Results Lab Laboratory Tests Test 08/04/17 17:25 08/04/17 18:10 08/04/17 20:08/05/17 03:40 Range/Units White Blood Count 19.8 H 15.8 H 4.3-11.0 10^3/uL Red Blood Count 4.39 4.03 L 4.35-5.85 10^6/uL Hemoglobin 13.9 12.8 L 13.3-17.7 G/DL Hematocrit 41 38 L 40-54 % Mean Corpuscular Volume 94 94 80-99 FL Mean Corpuscular Hemoglobin 32 32 25-34 PG Mean Corpuscular Hemoglobin Concent 34 34 32-36 G/DL Red Cell Distribution Width 12.9 13.0 10.0-14.5 % Platelet Count 267 233 130-400 10^3/uL Mean Platelet Volume 10.5 H 10.6 H 7.4-10.4 FL Neutrophils (%) (Auto) 88 H 84 H 42-75 % Lymphocytes (%) (Auto) 2 L 5 L 12-44 % Monocytes (%) (Auto) 10 11 0-12 % Eosinophils (%) (Auto) 0 0 0-10 % Basophils (%) (Auto) 0 0 0-10 % Neutrophils # (Auto) 17.4 H 13.2 H 1.8-7.8 X 10^3 Lymphocytes # (Auto) 0.5 L 0.8 L 1.0-4.0 X 10^3 Monocytes # (Auto) 1.9 H 1.8 H 0.0-1.0 X 10^3 Eosinophils # (Auto) 0.0 0.0 0.0-0.3 10^3/uL Basophils # (Auto) 0.0 0.0 0.0-0.1 10^3/uL Neutrophils % (Manual) 83 % Lymphocytes % (Manual) 0 % Monocytes % (Manual) 9 % Eosinophils % (Manual) 0 % Basophils % (Manual) 0 % Band Neutrophils 8 % Blood Morphology Comment NORMAL Prothrombin Time 27.7 H 12.2-14.7 SEC INR Comment 2.6 H 0.8-1.4 Activated Partial Thromboplast Time 34 24-35 SEC Sodium Level 129 L 133 L 135-145 MMOL/L Potassium Level 3.9 3.9 3.6-5.0 MMOL/L Chloride Level 96 L 104 98-107 MMOL/L Carbon Dioxide Level 22 19 L 21-32 MMOL/L Anion Gap 11 10 5-14 MMOL/L Blood Urea Nitrogen 30 H 22 H 7-18 MG/DL Creatinine 1.15 0.78 0.60-1.30 MG/DL Estimat Glomerular Filtration Rate > 60 > 60 BUN/Creatinine Ratio 26 28 Glucose Level 166 H 116 H 70-105 MG/DL Calcium Level 9.6 8.6 8.5-10.1 MG/DL Magnesium Level 1.8 1.7 L 1.8-2.4 MG/DL Total Bilirubin 0.8 1.0 0.1-1.0 MG/DL Aspartate Amino Transf (AST/SGOT) 30 29 5-34 U/L Alanine Aminotransferase (ALT/SGPT) 26 26 0-55 U/L Alkaline Phosphatase 69 70 40-136 U/L Myoglobin 162.2 H 10.0-92.0 NG/ML Troponin I < 0.30 <0.30 NG/ML C-Reactive Protein High Sensitivity 23.47 H 0.00-0.50 MG/DL B-Type Natriuretic Peptide 863.1 H <100.0 PG/ML Total Protein 7.0 5.7 L 6.4-8.2 GM/DL Albumin 3.6 3.0 L 3.2-4.5 GM/DL TSH [facility] Testing 1.01 0.35-4.94 UIU/ML Digoxin Level 0.79 L 1.32 0.80-2.00 NG/ML Lactic Acid Level 3.04 *H 1.83 0.50-2.00 MMOL/L Phosphorus Level 2.0 L 2.3-4.7 MG/DL Triglycerides Level 48 <150 MG/DL Cholesterol Level 73 < 200 MG/DL LDL Cholesterol Direct 37 1-129 MG/DL VLDL Cholesterol 10 5-40 MG/DL HDL Cholesterol 25 L 40-60 MG/DL Physical Exam Vital Signs Vital Sign - Last 12Hours 08/04/17 08/04/17 08/04/17 17:15 17:39 18:20 Temp 99.2 Pulse 150 Resp 30 B/P (MAP) 142/63 Pulse Ox 95 O2 Delivery Nasal Cannula O2 Flow Rate 2.00 FiO2 100 Capillary Refill : Less Than 3 Seconds General Appearance: WD/WN, Moderate Distress Eyes: Bilateral Eye Normal Inspection, Bilateral Eye PERRL, Bilateral Eye EOMI HEENT: PERRL/EOMI, TMs Normal, Normal ENT Inspection, Pharynx Normal Neck: Full Range of Motion, Normal Inspection, Non Tender, Supple, Carotid Bruit Respiratory: Chest Non Tender, Normal Breath Sounds, No Accessory Muscle Use, No Respiratory Distress, Crackles Cardiovascular: No Edema, No Gallop, Normal Peripheral Pulses, Systolic Murmur , Tachycardia, Other (irregular) Gastrointestinal: Normal Bowel Sounds, No Organomegaly, No Pulsatile Mass, Non Tender, Soft Back: Normal Inspection, No CVA Tenderness, No Vertebral Tenderness Extremity: Normal Capillary Refill, Normal Inspection, Normal Range of Motion, Non Tender, No Calf Tenderness, No Pedal Edema Neurologic/Psychiatric: Alert, Oriented x3, No Motor/Sensory Deficits, 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 Skin: Normal Color, Warm/Dry Lymphatic: No Adenopathy A/P-Cardiology Admission Diagnosis Atrial flutter with rapid ventricular response Sepsis Pneumonia Hypertension Hyperlipidemia Assessment/Plan Atrial flutter with rapid ventricular response, history of paroxysmal atrial flutter, has stopped Eliquis prior to his surgery 2 weeks ago, restart it postoperatively, having some dysphagia, has been taking his medication since then. He cannot tolerate DONNIE due to recent surgery [id number] score is 6, yearly risk of stroke without oral anticoagulation is 9.8. Patient is maintained on Eliquis, continue to monitor Sepsis, pneumonia, receiving antibiotics, managed by primary care physician Alessandra diverticulum, status post surgical repair done on July 24, 2017. Mild erythema at the wound site. History of CVA Occurred on 07/18/2016. MRI of the head suggested a stroke. Mild dysphagia postoperatively. Managed by primary care physician History of syncope, patient had tilt table test which revealed severe dizziness and hypotension back in February 2013. had another episode the morning of admission , probably secondary to sepsis and pneumonia Hypertension, blood pressure is better controlled, continue to monitor. Hyperlipidemia, continue to monitor lipids Diabetes mellitus, followed and managed by primary care physician. Continue to monitor Bilateral moderate carotid stenosis, 40-59 percent per most recent carotid duplex done July 02, 2016, continue to monitor Clinical Quality Measures DVT/VTE Risk/Contraindication: Risk Factor Score Per Nursin RFS Level Per Nursing on Admit: 4+=Very High CRISS FOSTER MD Aug 05, 2017 07:22
[2017-08-05] MEDS ORDERED: VANCOMYCIN 1500 MG/NS 500 ML IVPB IV NR ×2 (08:00)
--- NOTE | 2017-08-05 08:05 | Diagnostic Imaging Report ---
INDICATION: Pneumonia. COMPARISON: 08/04/2017. FINDINGS: Upright portable view of the chest is obtained. Heart size is enlarged but unchanged. No central venous congestion is seen. There is no pneumothorax. Diffuse interstitial changes are similar to the prior study. Infiltrate seen in the left lung base is again demonstrated perhaps more densely consolidated behind the heart when compared to the recent prior exam. The upper lungs remain fairly well aerated. There are postoperative changes in the right shoulder. IMPRESSION: Persistent left basilar infiltrate perhaps increasing consolidation behind the heart when compared to the prior study. Persistent cardiomegaly without evidence of failure. Dictated by: Dictated on workstation # [id number]
[2017-08-05] MEDS ORDERED: NS 100 ML (IVPB) BAG IV ONE (08:15)
[2017-08-05] MEDS ORDERED: IOHEXOL 350 MG/ML 100 ML (OMNIPAQUE 350) VIAL IV ONE (08:15)
[2017-08-05] MEDS ORDERED: INFLUENZA TRIvalent 2017-2018 0.5 ML/45 MCG SYR IM ONE ×2 (08:30)
--- NOTE | 2017-08-05 08:35 | History & Physicial ---
History of Present Illness History of Present Illness Reason for visit/HPI patient came to the office yesterday very weak. Patient unable to walk. Patient brought in by wheelchair. Patient evaluated. Blood pressure low. Apical rate 150. Patient sent out to the emergency room. Patient in atrial fibrillation. Patient recently had zenkers diverticulum surgery [address] Armenta on Date of Admission Aug 04, 2017 at 18:30 Time Seen by Provider: 08:30 I consulted on this patient on 08/05/17 08:30 Attending Physician Tariq Bradford DO Admitting Physician Tariq Bradford DO Consult Allergies and Home Medications Allergies Coded Allergies: No Known Drug Allergies (Verified , 08/04/17) Home Medications Alfuzosin HCl 10 Mg Tab.er.24h, 10 MG PO DAILY@1900, (Reported) Amlodipine Besylate 10 Mg Tablet, 10 MG PO DAILY, (Reported) Apixaban 5 Mg Tablet, 5 MG PO BID, #60 Ref 5 Prescribed by: CAMELIA MAYES on 07/24/16 1628 Aspirin 81 Mg Tablet, 81 MG PO HS, (Reported) Atorvastatin Calcium 40 Mg Tablet, 40 MG PO HS, (Reported) Bethanechol Chloride 25 Mg Tablet, 25 MG PO QID, (Reported) Dexlansoprazole 60 Mg Cap, 60 MG PO DAILY, (Reported) Digoxin 250 Mcg Tablet, 0.25 MG PO DAILY, #30 Ref 4 Prescribed by: CRISS FOSTER on 07/27/16 1314 Diltiazem HCl 240 Mg Cap.er.24h, 240 MG PO DAILY, #30 Ref 4 Prescribed by: CRISS FOSTER on 07/27/16 1314 Ketoconazole 120 Ml Shampoo, (Reported) Metformin HCl 500 Mg Tablet, 500 MG PO BID, (Reported) Metoprolol Succinate 50 Mg Tab.er.24h, 50 MG PO DAILY, (Reported) Valsartan 320 Mg Tablet, 320 MG PO DAILY, (Reported) Past Schxnvy-Kbwuve-Wxmoih Hx Patient Social History Marrital Status: Employed/Student: unemployed, retired Alcohol Use: Denies Use Recreational Drug Use: No Smoking Status: Former Smoker Former Smoker, Quit: Jul 26, 1984 Physical Abuse Screen: No Sexual Abuse: No Recent Foreign Travel: No Contact w/other who traveled: No Recent Hopitalizations: No Recent Infectious Disease Expo: No Immunizations Up To Date Tetanus Booster (TDap): Unknown Date of Pneumonia Vaccine: Jul 27, 2013 Date of Influenza Vaccine: Jul 09, 2016 Seasonal Allergies Seasonal Allergies: No Surgeries Yes Neurological, Orthopedic Respiratory No Currently Using CPAP: No Currently Using BIPAP: No Cardiovascular Yes (CARDIOMEGALY, PAROXYSMAL A FIB, RHEUMATIC VALVE DZ: TRICUSPID, MITRAL) Atrial Fibrillation, Coronary Artery Disease, High Cholesterol, Hypertension, Valvular Heart Disease Neurological Yes (DYSPHAGIA HX) Reproductive System Hx Reproductive Disorders: No Sexually Transmitted Disease: No HIV/AIDS: No Genitourinary Benign Prostatic Hyperpl Gastrointestinal Yes Gastroesophageal Reflux, Diverticulosis Musculoskeletal Yes (ORTHO SURGERIES ABOVE) Arthritis, Chronic Back Pain Endocrine History of Endocrine Disorders: Yes (DM TYPE II) Endocrine Disorders: Diabetes, Non-Insulin dep HEENT History of HEENT Disorders: Yes HEENT Disorders: Cataract Loss of Vision: Denies Hearing Impairment: Denies Cancer No Psychosocial History of Psychiatric Problem: No Integumentary History of Skin or Integumenta: No Blood Transfusions History of Blood Disorders: No Family Medical History Family Hx: FH: liver disease 19 MOTHER FH: lung cancer 19 FATHER Constitutional: malaise, weakness EENTM: other (neck swollen this morning) Respiratory: no symptoms reported Cardiovascular: other (atrial flutter) Gastrointestinal: no symptoms reported Genitourinary: no symptoms reported Physical Exam Vital Signs Vital Sign - Last 12Hours 08/04/17 08/04/17 08/04/17 17:15 17:39 18:20 Temp 99.2 Pulse 150 Resp 30 B/P (MAP) 142/63 Pulse Ox 95 O2 Delivery Nasal Cannula O2 Flow Rate 2.00 FiO2 100 Capillary Refill : Less Than 3 Seconds General Appearance: No Apparent Distress, Thin Eyes: Bilateral Eye Normal Inspection HEENT: Other (neck swollen) Neck: Full Range of Motion Respiratory: Chest Non Tender, Normal Breath Sounds, No Accessory Muscle Use, No Respiratory Distress Cardiovascular: Irregularly Irregular Gastrointestinal: Non Tender, Soft Assessment/Plan Assessment and Plan atrial fibrillation with RVR. Atrial flutter. Sepsis with pneumonia. Swollen neck. Coronary artery disease. Hyperlipidemia Problems: Clinical Quality Measures DVT/VTE Risk/Contraindication: Risk Factor Score Per Nursin RFS Level Per Nursing on Admit: 4+=Very High TARIQ BRADFORD DO Aug 05, 2017 08:35
[2017-08-05] MEDS: CLINDAMYCIN INJECTION 600 MG in NS (IVPB) 50 ML IV SCH ×3 (09:42→21:58)
[2017-08-05] MEDS: ASPIRIN 81 MG CHEW (CHILDREN'S ASA) PO SCH (09:43)
[2017-08-05] MEDS: APIXABAN 5 MG (ELIQUIS) TABLET PO SCH ×2 (09:43→20:57)
[2017-08-05] MEDS: FAMOTIDINE 20 MG (PEPCID) TABLET PO SCH (09:43)
[2017-08-05] MEDS: meTOproloL SUCCINATE 50 MG (TOPROL XL) TAB PO SCH (09:44)
[2017-08-05] MEDS: amLODIPine 10 MG (NORVASC) TAB PO SCH (09:44)
[2017-08-05] MEDS: VALSARTAN 80 MG (DIOVAN) TAB PO SCH (09:44)
[2017-08-05] MEDS: DIGOXIN 0.25 MG (LANOXIN) TAB PO SCH (09:44)
[2017-08-05] MEDS: NS IV 1000 ML 1,000 ML IV SCH ×2 (09:45→23:16)
[2017-08-05] MEDS ORDERED: PIPERACILLIN SODIUM/TAZOBACTAM 4.5 GM in NS (IVPB) 100 ML IV NR (10:00)
--- NOTE | 2017-08-05 10:06 | Diagnostic Imaging Report ---
EXAMINATION: CT neck and chest. INDICATION: Cellulitis. Fluid collection. Concern for abscess. The patient has had Zenker's diverticulum repair. CONTRAST: 100 mL of Omnipaque 350 was administered intravenously. FINDINGS: CT NECK: There is a fluid collection with a peripheral rim of enhancement seen in the lower neck to the left of the midline measuring 5.2 x 6.9 x 6.8 cm. It is abutting the left thyroid lobe and displacing it along with the trachea to the right side. This is concerning for an abscess. There is edematous tissue in the retropharyngeal space in the hypopharynx region and around the upper esophagus. This is probably related to the abscess and also is perhaps a remnant of edema from the surgery. The parotid glands appear symmetric. The submandibular gland on the left side is displaced anteriorly from the inflammation and surrounding stranding. The right submandibular gland appears unremarkable. There is mild mucosal thickening in the left maxillary sinus. There is no significant lymphadenopathy seen. Small bilateral cervical lymph nodes, however, are noted. CT CHEST: The fluid collection in the left side of the neck appears to have an extension into the posterior mediastinum in the upper chest. This particular loculation is 3 x 2.6 cm. It is probably in communication with the rest of the fluid collection. It is abutting the left and posterior aspects of the trachea and esophagus. This is completely above the aortic arch level. There is otherwise no mediastinal mass or significantly enlarged lymph node. No hilar significant lymphadenopathy is seen. No axillary lymphadenopathy is noted. The thoracic aorta is normal in caliber with atherosclerotic calcifications seen. There are bilateral small pleural effusions and bibasilar mild areas of consolidation in the dependent region of the lungs, probably related to atelectasis. Prominent emphysema with blebs and bulla along the periphery of the upper and mid lung zones seen. Sections in the upper abdomen demonstrate calcified granulomas in the liver and spleen. The thoracic spine demonstrates prominent degenerative changes. IMPRESSION: (combined CT neck and chest) 1. There is a large fluid collection with peripheral enhancement along the lower aspect of the neck on the left side displacing the trachea and esophagus to the right, compatible with an abscess. There is an extension into the upper chest along the superior mediastinum posteriorly abutting the posterior aspect of the esophagus and trachea. 2. Tiny pleural effusions with minimal consolidation in the lower lobes, suggestive of atelectasis. 3. Emphysema. 4. The findings were discussed with Dr. Rocha and Dr. Malone at the time of dictation. Dictated by: Dictated on workstation # [id number]
--- NOTE | 2017-08-05 10:42 | Physical Therapy Evaluation ---
PT Evaluation-General Medical Diagnosis Admission Date Aug 04, 2017 at 18:30 Medical Diagnosis: pneumonia/A-Fib with RVR Onset Date: Aug 04, 2017 Therapy Diagnosis Therapy Diagnosis: generalized weakness/debility Height/Weight Height (Feet): 5 Height (Inches): 7.00 Weight (Pounds): 144 Weight (Ounces): 0.0 Precautions Precautions/Isolations: Fall Prevention, Standard Precautions Weight Bear Status Right Lower Extremity: Right Full Weight Bearing Left Lower Extremity: Left Full Weight Bearing Referral Physician: Shyam Reason for Referral: Evaluation/Treatment Medical History Pertinent Medical History: Arthritis, CAD, DM, GERD, HTN Additional Medical History recent Zenkers Diverticulum repair Current History sepsis; hyponatremia; loss of appetite; dysphagia Reviewed History: Yes Social History Home: Single Level Current Living Status: Spouse Prior/Core FIM Prior Level of Function Functional [place] Measure 0=Not Assessed/NA 4=Minimal Assistance 1=Total Assistance 5=Supervision or Setup 2=Maximal Assistance 6=Modified [place] 3=Moderate Assistance 7=Complete [place] Bed Mobility: 6 Transfers (B,C,W/C) (FIM): 6 Gait: 6 PT Evaluation-Current Subjective Patient agrees to PT. He c/o fatigue. Pain Numeric Pain Scale: 0-No Pain Location: No Pain Reported Objective Patient Orientation: Normal For Age Problem Solving: Good Attachments: Oxygen, IV ROM/Strength ROM Lower Extremities bilateral LE WNL Strength Lower Extremities right knee flexion/extension 4/5; hip flexion 4/5; ankle DF/PF 4/5 left knee flexion/extension 4/5; hip flexion 4/5 DF/PF 4/5 Integumentary/Posture Integumentary refer to nursing notes Bowel Incontinence: No Bladder Incontinence: No Posture WNL Neuromuscular (Tone, Coordination, Reflexes) grossly intact Sensory Vision: Wears Glasses Hearing: Hearing Aid/Aides Sensation Right Lower Extremit: Impaired Sensation Left Lower Extremity: Impaired Transfers Functional [place] Measure 0=Not Assessed/NA 4=Minimal Assistance 1=Total Assistance 5=Supervision or Setup 2=Maximal Assistance 6=Modified [place] 3=Moderate Assistance 7=Complete [place] Transfers (B, C, W/C) (FIM): 4 Scootin Rollin Supine to/from Sit: 4 Sit to/from Stand: 4 bed t/f WC(FIM only if WC use): 4 Gait Mode of Locomotion: Walk Anticipated Mode of Locomotion: Walk Gait (FIM): 1 Distance (FIM): 1=up to 49 ft Distance: 5' Gait Level of Assist: 4 Gait Persons Needed: 1 Gait Assistive Device: FWW Comments/Gait Description 4 steps Balance Sitting Static: Normal Sitting Dynamic: Normal Standing Static: Normal Standing Dynamic: Normal Assessment/Needs 81 y.o. male, will benefit from skilled PT to address functional strength and mobility to improve current LOF and to safely return to home at maximum LOF. Rehab Potential: Good PT [facility] Goals [facility] Goals PT Home Health Provider Goals Time Frame: Aug 15, 2017 Transfers (B,C,W/C) (FIM): 6 Gait (FIM): 6 Gait distance (FIM): 3=150 ft Distance: 200' Gait Level of Assist: 6 Gait Assistive Device: FWW PT Plan Problem List Problem List: Activity Tolerance, Gait Treatment/Plan Treatment Plan: Continue Plan of Care Treatment Plan: Bed Mobility, Education, Functional Activity Jennifer, Functional Strength, Gait, Safety, Therapeutic Exercise, Transfers Treatment Duration: Aug 15, 2017 Frequency: 6 times per week Estimated Hrs Per Day: .25 hour per day Patient and/or Family Agrees t: Yes Discharge Recommendations Therapy D/C Recommendations: Home w/ Family Support Time/GCodes Time In: 937 Time Out: 1006 Total Billed Treatment Time: 29 Total Billed Treatment 1 visit EVMod 29 min G Codes Necessary: STANISLAV Juárez PT Aug 05, 2017 10:41
--- NOTE | 2017-08-05 10:44 | ST Dysphagia Evaluation ---
Speech Evaluation-General Medical Diagnosis Pharyngoesophageal Abscess s/p Zenker's Diverticulum Repair Onset Date: Aug 05, 2017 Therapy Diagnosis Therapy Diagnosis: Severe Pharyngoesophageal Dysphagia Precautions Precautions: Aspiration Precautions/Isolations: Fall Prevention, Standard Precautions Referral Referring Physician: Dr. Tariq Howe Reason for Referral: Evaluation/Treatment Clinical Bedside Swallowing Evaluation Medical History Pertinent Medical History: Atrial Fib, Arthritis, CAD, DM, GERD, HTN Zenker's Diverticulum Reviewed History: Yes Speech PLF/Current-Dysphagia Prior Level of Function The patient underwent repair of a Zenker's Diverticulum on July 24, 2017 at an outside facility. Following the procedure, the patient stated he was able to consume liquid consistencies without any difficulties, however, pills would tend to "get caught." Per patient, he has consumed a restricted, limited diet ( reduced intake) since the completion of the repair. Subjective The patient is an 81-year-old male admitted to [facility] on 2016 with a diagnosis of suspected pneumonia. The patient completed a modified barium swallow with the clinician on 06/06/2017 which revealed a Zenker's diverticulum with inlet visualized approximately at cervical vertebrae five. No aspiration was visualized, however, the evaluation was terminated following visualization (thin liquids, only). Retrograde flow of material was visualized at that time from the region of the diverticulum to the pyriform sinuses, resulting in moderate pyriform sinus pooling. The patient underwent surgical repair of the diverticulum on July 24, 2017 at an outside facility. At this time, the patient demonstrates moderate exterior pharyngeal edema, as well as, throat clearing on secretions at baseline. CXR: 08/05/17: Persistent left basilar infiltrate perhaps increasing consolidation behind the heart when compared to the prior study. Persistent cardiomegaly without evidence of failure. Cognitive Status Patient Orientation: Person, Place, Time, Situation Oral Motor Skills Dentition: Natural (Partial upper and lower dentures present.) Denture Type: Partial- Upper & Lower Ability to Follow Directions: Excellent The patient is currently NPO pending results of the swallowing evaluation. Oral Expression Ability: No Impairment Voice Voice Phonatory-Based Quality: Normal (Hyponasal resonance noted.) Voice Pitch: Normal Voice Loudness: Normal Face Facial Symmetry: Symmetrical Oral-Facial Assessment Oral-Facial Dentition: Normal Labial Seal Description: Normal Smile: Normal Puff Cheeks: Normal Lingual Protrusion: Normal Lingual ROM: Normal Lingual Strength: Normal Pharynx Velopharyngeal Move.: Normal Volitional Dry Swallow: Yes (The patient denied odynophagia upon swallowing.) Voluntary Cough: Yes Can Clear Throat Volitionally: Yes Productive Cough: Yes Productive Throat Clear: Yes Dysphagia Evaluation Consistencies Presented: Thin Liquid (Via Teaspoon.), Pureed (Via half teaspoon.) - No oral impairments were noted throughout the swallowing evaluation. Pharyngeal Phase: Clears Throat - Due to the presence of moderate pharyngeal exterior edema, as well as, a draining wound, laryngeal palpation did not occur. Additionally, due to the edema, laryngeal elevation could not be assessed visually. - The patient did clear his throat following trials of all consistencies, as well as, at baseline with secretions. Funct. Velo/Pharyngeal Symptom: Clears Throat, Cough After Swallow, Wet Voice - The patient presented with a wet vocal quality following all trials, as well as, at baseline with secretions. Additionally, the patient demonstrated consistent throat clearing with all bolus trials (half teaspoons of puree and teaspoon trials of thin liquid). Dietary Recommendations: NPO Liquid Recommendations: NPO Dysphagia Evaluation Summary The patient displays severe pharyngoesophageal dysphagia at this time. Due to the recent development of an abscess documented on the patient's currently available CT neck/chest, the speech pathologist recommends the patient remain NPO with oral recommendations and initiation deferred to primary/surgical team. When the patient is deemed appropriate and cleared for PO intake by the primary/ surgical team, please place order for modified barium swallow (these recommendations were discussed with the patient's RN). The speech pathologist will sign off at this time. Please place re-consult when the patient is appropriate for PO intake. Speech-Plan Treatment Plan Speech Therapy Treatment Plan: Discontinue ST Initiation of PO intake is deferred to the patient's primary team. Prior to initiation of PO, the speech pathologist recommends a modified barium swallow evaluation to definitively rule out aspiration, as signs/symptoms of aspiration were demonstrated with all consistencies tested (limited amounts) at the bedside. Please reconsult speech pathology when the patient is cleared/appropriate for PO trials by surgical team. Frequency: 3 times per week (When patient is appropriate.) Estimated Hrs Per Day: .5 hour per day Rehab Potential: Guarded Safety Risks/Education Teaching Recipient: Patient, Family Teaching Methods: Discussion Response to Teaching: Verbalize Understanding Education Topics Provided: Results, Plan of Care, Recommendations Time Speech Therapy Time In: 10:15 Speech Therapy Time Out: 10:35 Total Billed Time: 20 Billed Treatment Time 1HERMILO ELIZABETH ST Aug 05, 2017 10:44
[2017-08-05] MEDS ORDERED: LIDOCAINE 1% INJ 20 ML (XYLOCAINE) VIAL ONE (11:23)
[2017-08-05] MEDS ORDERED: fentaNYL INJECTION 100 MCG/2 ML AMP ONE (11:38)
[2017-08-05] MEDS ORDERED: LIDOCAINE/EPI 1%-1:200,000 (XYLOCAINE) 10 ML VIAL INJ ONE ×2 (11:45→12:15)
[2017-08-05] MEDS ORDERED: fentaNYL INJECTION 100 MCG/2 ML AMP IVP NR (12:20)
--- NOTE | 2017-08-05 14:24 | CONSULTATION REPORT ---
DATE OF SERVICE: 08/05/2017 ATTENDING PHYSICIAN: Tariq Howe DO. HISTORY OF PRESENT ILLNESS: The patient is an 81-year-old man with a history of a Zenker's diverticulum and dysphagia related to this. He underwent an open diverticulectomy on 07/24/2017. The patient and family report that since having this done, he has had some issues with continued episodes of dysphagia and has been unable to take in adequate amounts of liquids and solids. They state that at home, he was weak, and sounds as though he was dehydrated. They report that his legs felt weak and he almost did fall several times. The patient also states that in the past several days, he has developed neck distention as well as worsening dysphagia. He has not had any airway compromise. He was admitted and started on IV fluids. The swelling in his neck was apparent and a CT scan confirmed abscess accumulation within the left neck. He is awake and alert and is having a cough; however, does not have any issues with breathing. He reports that he has had continued problems with swallowing. PAST MEDICAL HISTORY: Atrial fibrillation, hypercholesterolemia, hypertension, history of rheumatic heart disease, coronary artery disease, gastroesophageal reflux disease, history of Zenker's diverticulum, history of colonic diverticulosis, diabetes, cataracts. PAST SURGICAL HISTORY: Low back surgery, inguinal hernia repair, right shoulder arthroscopy, Zenker's diverticulectomy on 07/24/2017. ALLERGIES: No known drug allergies. MEDICATIONS: Amlodipine 10 mg daily, Alfuzosin 10 mg daily, Apixaban 5 mg b.i.d., aspirin 81 mg daily, atorvastatin 40 mg daily, Bethanechol 25 mg q.i.d., Dexilant 60 mg daily, digoxin 250 mcg daily, diltiazem 240 mg daily, metformin 500 mg b.i.d., metoprolol 50 mg daily, valsartan 320 mg daily. SOCIAL HISTORY: Negative smoke and negative alcohol. FAMILY HISTORY: Noncontributory. REVIEW OF SYSTEMS: He does have pain in the neck as well as swelling and dysphagia; however, no difficulty in breathing. He has also had a chronic cough for the past few weeks. No nausea, vomiting. No diarrhea or constipation. No fevers, chills with some weight loss in the past several weeks. All other review of systems negative. PHYSICAL EXAMINATION: VITAL SIGNS: Temperature 100.6, blood pressure 101/61, pulse 77, respirations 22, pulse ox 96% on 5 liters nasal cannula. GENERAL: A well-nourished male, currently in no acute distress. CHEST: Clear. Good breath sounds bilaterally. HEART: Regular, no murmurs. EXTREMITIES: No lower extremity edema, negative Homans sign. HEENT: No scleral icterus. NECK: No cervical lymphadenopathy. There is a significant amount of swelling as well as fluctuance in the left neck along the previous incision as well as inferior to this. No surrounding redness or erythema. ABDOMEN: Soft, nontender, nondistended. SKIN: Warm and dry. LABORATORY DATA: WBC 15.8, hemoglobin 12.8, hematocrit 38, platelets 233. ASSESSMENT AND PLAN: An 81-year-old male with left deep neck abscess secondary to previous Zenker's diverticulectomy. We will proceed with a bedside incision and drainage of the abscess. CT scan confirmed the abscess. Once this is drained, we will proceed with packing and allow this to close by secondary intention. He may have ice chips; however, we will hold off on diet until a video swallow study is performed to show no risk of aspiration as well as no esophageal leak. Job ID: [id number] DocumentID: [id number] Dictated Date: 08/05/2017 12:58:34 Outdoor Education Teacher Date: 08/05/2017 13:41:50 Dictated By: KRISTEN ZHANG MD
--- NOTE | 2017-08-05 15:11 | Speech Therapy Progress Note ---
Therapy Progress Note Speech pathology will schedule modified barium swallow as recommended by Dr. Malone and agreed upon by clinician. The speech pathologist is attempting to make modified barium swallow appointment, however, continues to reach scheduling voicemail. Information was left on voicemail for schedule need, as well as, a request for the first available appointment. Speech pathology will continue to follow up with scheduling for appointment. DAVID REYES Aug 05, 2017 15:11
[2017-08-05] MEDS ORDERED: DILTIAZEM 25 MG/5 ML INJ (CARDIZEM) VIAL IVP ONE (17:30)
[2017-08-05] MEDS ORDERED: DILTIAZEM 25 MG/5 ML INJ (CARDIZEM) VIAL ONE (18:00)
[2017-08-05] MEDS: fentaNYL INJECTION 100 MCG/2 ML AMP IVP PRN (18:43)
[2017-08-05] MEDS: PIPERACILLIN SODIUM/TAZOBACTAM 4.5 GM in NS (IVPB) 100 ML IV SCH (18:44)
[2017-08-05] MEDS: ATORVASTATIN 40 MG (LIPITOR) TABLET PO SCH (20:57)
[2017-08-05] MEDS ORDERED: NS IV 500 ML 500 ML IV STA (22:16)
[2017-08-05] MEDS ORDERED: meTOprolol 5 MG/5 ML (LOPRESSOR) VIAL IV ONE (22:30)
[2017-08-06] VITALS (23 sets, daily range): BP systolic 11–160; BP diastolic 58–103
[2017-08-06] MEDS: PIPERACILLIN SODIUM/TAZOBACTAM 4.5 GM in NS (IVPB) 100 ML IV SCH ×3 (00:25→17:25)
[2017-08-06] MEDS: RT-ALBUTEROL/IPRATROPIUM 3 ML (DUONEB) VIAL INH SCH ×4 (03:07→20:09)
[2017-08-06] MEDS: NS IV 1000 ML 1,000 ML IV SCH ×2 (04:17→20:10)
[2017-08-06 05:23] LABS: BASOPHILS % (AUTO) 0 % (0-10); EOSINOPHILS % (AUTO) 0 % (0-10); LYMPHOCYTES # (AUTO) 0.6 X 10^3 (1.0-4.0); LYMPHOCYTES % (AUTO) 6 % (12-44); MEAN CORPUSCULAR HEMOGLOBIN 32 PG (25-34); MEAN CORPUSCULAR HGB CONC 33 G/DL (32-36); MEAN CORPUSCULAR VOLUME 95 FL (80-99); MEAN PLATELET VOLUME 9.9 FL (7.4-10.4); MONOCYTES # (AUTO) 0.9 X 10^3 (0.0-1.0); MONOCYTES % (AUTO) 9 % (0-12); NEUTROPHILS # (AUTO) 8.6 X 10^3 (1.8-7.8); NEUTROPHILS % (AUTO) 85 % (42-75); PLATELET COUNT 240 10^3/uL (130-400); RED BLOOD COUNT 3.81 10^6/uL (4.35-5.85); RED CELL DISTRIBUTION WIDTH 13.3 % (10.0-14.5); WHITE BLOOD COUNT 10.2 10^3/uL (4.3-11.0)
[2017-08-06 05:39] LABS: ANION GAP 10 MMOL/L (5-14); BLOOD UREA NITROGEN 15 MG/DL (7-18); BUN/CREATININE RATIO 22; CALCIUM 8.2 MG/DL (8.5-10.1); CARBON DIOXIDE 19 MMOL/L (21-32); CHLORIDE 110 MMOL/L (98-107); CREATININE SERUM 0.67 MG/DL (0.60-1.30); GFR ESTIMATED > 60; GLUCOSE 98 MG/DL (70-105); MAGNESIUM 1.9 MG/DL (1.8-2.4); POTASSIUM 3.7 MMOL/L (3.6-5.0); SODIUM 139 MMOL/L (135-145)
[2017-08-06] MEDS: CLINDAMYCIN INJECTION 600 MG in NS (IVPB) 50 ML IV SCH ×3 (05:40→20:56)
[2017-08-06] MEDS: POTASSIUM CL 10MEQ/50ML IVPB 50 ML IV SCH (05:42)
[2017-08-06] MEDS: KCL 20 MEQ TAB (K-DUR) PO SCH (05:42)
[2017-08-06] MEDS: MAGNESIUM 1 GM/100 ML IVPB 100 ML IV SCH (05:42)
--- NOTE | 2017-08-06 05:55 | Pulmonary Progress Note ---
Subjective Time Seen by Provider: 05:53 Subjective/Events-last exam PT is doing better s/p I&D. He is currently on cardizem gtt for Afib RVR Exam Exam Vital Signs Date Time Temp Pulse Resp B/P (MAP) Pulse Ox O2 Delivery O2 Flow Rate FiO2 08/06/17 05:45 96 16 125/62 94 Room Air 08/06/17 05:00 87 23 127/70 94 Nasal Cannula 1.00 08/06/17 04:00 94 Nasal Cannula 1.00 08/06/17 04:00 142 18 131/74 96 Nasal Cannula 1.00 08/06/17 04:00 98.1 Nasal Cannula 1.00 08/06/17 03:08 93 Nasal Cannula 5.00 08/06/17 03:00 75 25 127/70 96 Nasal Cannula 3.00 08/06/17 02:00 70 17 117/58 95 Nasal Cannula 3.00 08/06/17 01:00 77 21 109/61 95 Nasal Cannula 3.00 08/06/17 01:00 77 08/06/17 00:27 68 08/06/17 00:00 97.1 Nasal Cannula 3.00 08/06/17 00:00 69 22 95/67 95 Nasal Cannula 3.00 08/06/17 00:00 98 Nasal Cannula 3.00 08/05/17 23:00 64 20 87/55 98 Nasal Cannula 5.00 08/05/17 22:00 141 19 102/61 98 Nasal Cannula 5.00 08/05/17 21:00 146 19 107/62 93 Nasal Cannula 5.00 08/05/17 20:11 93 Nasal Cannula 5.00 08/05/17 20:00 97.3 78 22 105/59 96 Nasal Cannula 5.00 08/05/17 20:00 96 Nasal Cannula 5.00 08/05/17 19:30 Nasal Cannula 5.00 08/05/17 19:00 141 08/05/17 19:00 141 17 96/61 100 Nasal Cannula 5.00 08/05/17 18:00 141 18 100/60 99 Nasal Cannula 5.00 08/05/17 17:00 141 21 111/61 97 Nasal Cannula 5.00 08/05/17 16:28 98 Nasal Cannula 5.00 08/05/17 16:00 84 24 113/60 98 Nasal Cannula 5.00 08/05/17 16:00 95 Nasal Cannula 5.00 08/05/17 15:00 90 19 105/54 94 Nasal Cannula 5.00 08/05/17 14:00 88 19 113/60 97 Nasal Cannula 5.00 08/05/17 13:00 80 08/05/17 13:00 79 18 115/55 97 Nasal Cannula 5.00 08/05/17 12:00 77 22 101/61 96 Nasal Cannula 5.00 08/05/17 12:00 95 Nasal Cannula 5.00 08/05/17 11:00 92 24 110/53 97 Nasal Cannula 5.00 08/05/17 10:23 97 Nasal Cannula 5.00 08/05/17 10:00 82 35 135/49 95 Nasal Cannula 5.00 08/05/17 09:11 84 118/56 08/05/17 09:00 95 23 114/57 95 Nasal Cannula 5.00 08/05/17 08:00 95 Nasal Cannula 5.00 08/05/17 08:00 95 12 124/57 94 Nasal Cannula 5.00 08/05/17 07:00 98 08/05/17 07:00 90 24 114/75 96 Nasal Cannula 5.00 08/05/17 06:00 83 25 124/48 95 Nasal Cannula 5.00 General Appearance: No Apparent Distress, Thin HEENT: Other (neck swollen) Neck: Full Range of Motion Respiratory: Chest Non Tender, Normal Breath Sounds, No Accessory Muscle Use, No Respiratory Distress Cardiovascular: Irregularly Irregular Capillary Refill: Less Than 3 Seconds Extremity: Normal Inspection, No Pedal Edema Neurologic/Psychiatric: Alert, Oriented x3, No Motor/Sensory Deficits, 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, senior technologist II-XII Norm as Tested Skin: Normal Color, Warm/Dry Lymphatic: No Adenopathy Results Lab Laboratory Tests 08/04/17 17:25 08/05/17 03:40 08/06/17 05:15 Assessment/Plan Assessment/Plan Sepsis with pneumonia, and cellulitis -Continue IVF --Zosyn, start Vanco, Clinda -flores cultures -SVNs Q 6 Afib RVR -Cardizem gtt -Cardiology following Atelectasis -SVN -IS Hypophosphatemia -replace dysphagia -barium swallow today Left neck cellulitis s/p zenkers diverticulum repair s/p ID per Dr. Malone [id number] Clinical Quality Measures DVT/VTE Risk/Contraindication: Risk Factor Score Per Nursin RFS Level Per Nursing on Admit: 4+=Very High BRITTANY BARRIOS DO Aug 06, 2017 05:55
--- NOTE | 2017-08-06 07:50 | Progress Note (SOAP) ---
Subjective Time Seen by Provider: 07:45 Subjective/Events-last exam patient feeling better today. Patient is hungry. Patient had abscess drained and neck yesterday. Patient heart still irregular area EKG ordered. Pneumonia. Hyponatremia better Objective Exam Vital Signs Date Time Temp Pulse Resp B/P (MAP) Pulse Ox O2 Delivery O2 Flow Rate FiO2 08/06/17 06:00 77 25 127/65 91 Room Air 08/06/17 05:45 96 16 125/62 94 Room Air 08/06/17 05:00 87 23 127/70 94 Nasal Cannula 1.00 08/06/17 04:00 94 Nasal Cannula 1.00 08/06/17 04:00 142 18 131/74 96 Nasal Cannula 1.00 08/06/17 04:00 98.1 Nasal Cannula 1.00 08/06/17 03:08 93 Nasal Cannula 5.00 08/06/17 03:00 75 25 127/70 96 Nasal Cannula 3.00 08/06/17 02:00 70 17 117/58 95 Nasal Cannula 3.00 08/06/17 01:00 77 21 109/61 95 Nasal Cannula 3.00 08/06/17 01:00 77 08/06/17 00:27 68 08/06/17 00:00 97.1 Nasal Cannula 3.00 08/06/17 00:00 69 22 95/67 95 Nasal Cannula 3.00 08/06/17 00:00 98 Nasal Cannula 3.00 08/05/17 23:00 64 20 87/55 98 Nasal Cannula 5.00 08/05/17 22:00 141 19 102/61 98 Nasal Cannula 5.00 08/05/17 21:00 146 19 107/62 93 Nasal Cannula 5.00 08/05/17 20:11 93 Nasal Cannula 5.00 08/05/17 20:00 97.3 78 22 105/59 96 Nasal Cannula 5.00 08/05/17 20:00 96 Nasal Cannula 5.00 08/05/17 19:30 Nasal Cannula 5.00 08/05/17 19:00 141 08/05/17 19:00 141 17 96/61 100 Nasal Cannula 5.00 08/05/17 18:00 141 18 100/60 99 Nasal Cannula 5.00 08/05/17 17:00 141 21 111/61 97 Nasal Cannula 5.00 08/05/17 16:28 98 Nasal Cannula 5.00 08/05/17 16:00 84 24 113/60 98 Nasal Cannula 5.00 08/05/17 16:00 95 Nasal Cannula 5.00 08/05/17 15:00 90 19 105/54 94 Nasal Cannula 5.00 08/05/17 14:00 88 19 113/60 97 Nasal Cannula 5.00 08/05/17 13:00 80 08/05/17 13:00 79 18 115/55 97 Nasal Cannula 5.00 08/05/17 12:00 77 22 101/61 96 Nasal Cannula 5.00 08/05/17 12:00 95 Nasal Cannula 5.00 08/05/17 11:00 92 24 110/53 97 Nasal Cannula 5.00 08/05/17 10:23 97 Nasal Cannula 5.00 08/05/17 10:00 82 35 135/49 95 Nasal Cannula 5.00 08/05/17 09:11 84 118/56 08/05/17 09:00 95 23 114/57 95 Nasal Cannula 5.00 08/05/17 08:00 95 Nasal Cannula 5.00 08/05/17 08:00 95 12 124/57 94 Nasal Cannula 5.00 Capillary Refill : Less Than 3 Seconds General Appearance: No Apparent Distress, Thin HEENT: Normal ENT Inspection Neck: Other (abscess drained) Respiratory: Lungs Clear, No Accessory Muscle Use, No Respiratory Distress Cardiovascular: Irregularly Irregular Gastrointestinal: non tender, soft Results Lab Laboratory Tests 08/06/17 05:15 Laboratory Tests 08/06/17 05:15: White Blood Count 10.2, Red Blood Count 3.81L, Hemoglobin 12.0L, Hematocrit 36L , Mean Corpuscular Volume 95, Mean Corpuscular Hemoglobin 32, Mean Corpuscular Hemoglobin Concent 33, Red Cell Distribution Width 13.3, Platelet Count 240, Mean Platelet Volume 9.9, Neutrophils (%) (Auto) 85H, Lymphocytes (%) (Auto) 6L , Monocytes (%) (Auto) 9, Eosinophils (%) (Auto) 0, Basophils (%) (Auto) 0, Neutrophils # (Auto) 8.6H, Lymphocytes # (Auto) 0.6L, Monocytes # (Auto) 0.9, Eosinophils # (Auto) 0.0, Basophils # (Auto) 0.0, Sodium Level 139, Potassium Level 3.7, Chloride Level 110H, Carbon Dioxide Level 19L, Anion Gap 10, Blood Urea Nitrogen 15, Creatinine 0.67, Estimat Glomerular Filtration Rate > 60, BUN/ Creatinine Ratio 22, Glucose Level 98, Calcium Level 8.2L, Phosphorus Level 2.0L , Magnesium Level 1.9 Microbiology 08/04/17 Blood Culture - Preliminary, Resulted No growth 08/05/17 Gram Stain - Final, Resulted 08/05/17 Wound Culture - Preliminary, Resulted Strep Or Related Genus Assessment/Plan Assessment/Plan Assess & Plan/Chief Complaint pneumonia. Abscess neck. Atrial fibrillation. Recent Zenker's diverticulum surgery. Patient feeling better is hungry Clinical Quality Measures DVT/VTE Risk/Contraindication: Risk Factor Score Per Nursin RFS Level Per Nursing on Admit: 4+=Very High ALBARO BRADFORD DO Aug 06, 2017 07:50
[2017-08-06] MEDS: SODIUM PHOSPHATE INJ 15 MM in NS (IVPB) 100 ML IV NR ×2 (08:00→10:11)
[2017-08-06] MEDS ORDERED: VANCOMYCIN 1 GM/NS 250 ML IVPB IV SCH ×2 (08:00)
--- NOTE | 2017-08-06 08:50 | Diagnostic Imaging Report ---
INDICATION: Pneumonia. Frontal chest obtained at 4:38 a.m. and compared with yesterday. FINDINGS: There is cardiomegaly again noted. There is central vascular congestion with unchanged diffuse interstitial infiltrate and bibasilar alveolar infiltrate. There is no pleural fluid. There is a tiny linear lucency in the left lateral base, which may represent artifact versus less likely a minimal pneumothorax. Followup is suggested. IMPRESSION: Cardiomegaly and central vascular congestion with unchanged diffuse interstitial infiltrate and bibasilar alveolar infiltrate. Faint linear lucency in the left lateral chest inferiorly, which may be artifactual although tiny pneumothorax is not excluded. Followup is suggested. Dictated by: Dictated on workstation # [id number]
--- NOTE | 2017-08-06 09:24 | ST Mod Barium Swallow ---
Speech Evaluation-General Medical Diagnosis Pharyngoesophageal Abscess s/p Zenker's Diverticulum Repair Onset Date: Aug 05, 2017 Therapy Diagnosis Therapy Diagnosis: Moderate Pharyngoesophageal Dysphagia Precautions Precautions: Aspiration Precautions/Isolations: Fall Prevention, Standard Precautions Referral Referring Physician: Dr. Malone Reason for Referral: Evaluation/Treatment Modified Barium Swallow Evaluation Medical History Pertinent Medical History: Atrial Fib, Arthritis, CAD, DM, GERD, HTN Reviewed History: Yes Social History Current Living Status: Spouse Speech Mod Barium Swallow Prior Level of Function The patient is an 81-year-old male admitted to [facility] on 2016 with a diagnosis of suspected pneumonia. The patient completed a modified barium swallow with the clinician on 06/06/2017 which revealed a Zenker's diverticulum with inlet visualized approximately at cervical vertebrae five. No aspiration was visualized, however, the evaluation was terminated following visualization (thin liquids, only). Retrograde flow of material was visualized at that time from the region of the diverticulum to the pyriform sinuses, resulting in moderate pyriform sinus pooling. The patient underwent surgical repair of the diverticulum on July 24, 2017 at an outside facility. At this time, the patient demonstrates moderate exterior pharyngeal edema, as well as, throat clearing on secretions at baseline. The patient was found to have an abscess at the repair site. The abscess was recently drained and packed. The patient is NPO at this time pending the results of the swallowing evaluation (MBS). Oral Motor Skills Dentition Natural Dentures: Full Lingual Protrusion: Normal Lingual ROM: Normal Lingual Strength: Normal Velum: Normal Volitional Dry Swallow: Yes Voluntary Cough: Yes Can Clear Throat Volitionally: Yes Textures-Lateral View Lateral View Food Presentation: Thin Liquid via Spoon, Thin Liquid via Cup, Thin Liquid via Straw, Pureed Solids Oral Phase Labial Closure: No Impairment (WFL) Bolus Formation Pooling L/R: No Impairment (WFL) Bolus Formation Placement: No Impairment (WFL) A solid consistency was not provided. A/P Lingual Propulsion: No Impairment (WFL) Lingual Movement: No Impairment (WFL) Oral Phase Residue: No Impairment (WFL) Mild premature spillage of thin liquid material to the vallecular space occurred before the pharyngeal swallow was triggered. No additional oral phase impairments were noted throughout the assessment. Pharyngeal Phase Swallow Response: Mild Impairment (Thin liquid material reached the vallecular space prior to swallow initiation.) Base of Tongue: Moderate Impairment Epiglottic Movement: No Impairment (WFL) Laryngeal Elevation: Moderate Impairment (Moderately to severely reduced hyo- laryngeal excursion was noted.) Vallecular Residue: Mild Pharyngeal Wall Residue: Mild Piriform Sinus Residue: Mild Laryngeal Penetration: Mild (Mild transient laryngeal penetration occurred with thin liquids during the swallow. No aspiration was visualized.) Aspiration Observations: None The puree consistency remained in the vallecular space following the initial swallow. The material was cleared from the vallecular space upon a second, spontaneous swallow. Material cleared the region of the previously documented diverticulum (surgically repaired July 24, 2017). Per Radiology, a esophageal leak was not noted. Performed-A/P View Not Applicable/Performed Observations A/P View Vocal Cord Function: Midline Summary/Impressions The patient demonstrated moderate pharyngoesophageal dysphagia characterized by a mildly delayed pharyngeal onset of swallow, moderately reduced base of tongue retraction, moderately decreased laryngeal elevation, moderately to severely decreased hyo-laryngeal excursion, and mildly reduced pharyngeal contraction. No aspiration was visualized on the modified barium swallow evaluation. At this time, the clinician recommends the patient initiate an oral diet consisting of soft solids and thin liquids. Solid consistency upgrade deferred to primary team. Please reconsult speech pathology if concerns for aspiration return. Recommendations: - Soft solid consistency diet with thin liquids. - Small bites and sips. - Alternate solid and liquid consistencies on a one-on-one ratio. - Crush medication and place in puree for administration. Speech-Plan Treatment Plan Speech Therapy Treatment Plan: Discontinue ST No aspiration was visualized on the modified barium swallow evaluation. At this time, the patient will initiate an oral diet consisting of soft solids and thin liquids. Solid consistency upgrade deferred to primary team. Please reconsult speech pathology if concerns for aspiration return. Thank you. Frequency: 3 times per week (When patient is appropriate.) Estimated Hrs Per Day: Other (The patient is discharged from skilled speech services at this time.) Rehab Potential: Good Safety Risks/Education Teaching Recipient: Patient Teaching Methods: Discussion Response to Teaching: Verbalize Understanding Education Topics Provided: Results, Recommendations, Plan of Care, Swallowing Strategies, Signs/Symptoms of Aspiration Time Speech Therapy Time In: 08:45 Speech Therapy Time Out: 09:00 Total Billed Time: 15 Billed Treatment Time 1, DAVID BRODY Aug 06, 2017 09:24
--- NOTE | 2017-08-06 09:41 | Diagnostic Imaging Report ---
EXAMINATION: Modified barium swallow. Indication: Dysphagia, recent Zenker's diverticulum repair Different consistencies of fluid and food was given mixed with barium and swallowing was visualized under fluoroscopy. FLUOROSCOPY TIME: One minute and 23 seconds FINDINGS: No aspiration seen. No leakage of contrast is seen from the operative site of Zenker's diverticulum repair. IMPRESSION: No aspiration seen. Please refer to speech therapist's report for additional details . Dictated by: Dictated on workstation # [id number]
[2017-08-06] MEDS: FAMOTIDINE 20 MG (PEPCID) TABLET PO SCH (10:11)
[2017-08-06] MEDS: amLODIPine 10 MG (NORVASC) TAB PO SCH (10:11)
[2017-08-06] MEDS: DIGOXIN 0.25 MG (LANOXIN) TAB PO SCH (10:11)
[2017-08-06] MEDS: VALSARTAN 80 MG (DIOVAN) TAB PO SCH (10:11)
[2017-08-06] MEDS: meTOproloL SUCCINATE 50 MG (TOPROL XL) TAB PO SCH (10:12)
[2017-08-06] MEDS: ASPIRIN 81 MG CHEW (CHILDREN'S ASA) PO SCH (10:12)
[2017-08-06] MEDS: APIXABAN 5 MG (ELIQUIS) TABLET PO SCH ×2 (10:12→20:55)
[2017-08-06] MEDS ORDERED: SODIUM PHOSPHATE INJ 15 MM in NS (IVPB) 100 ML IV NR (10:34)
[2017-08-06] MEDS ORDERED: HYDR-3816 PO (11:35)
[2017-08-06] MEDS ORDERED: DIGO125T PO (11:35)
[2017-08-06] MEDS ORDERED: DILT240C PO (11:35)
[2017-08-06] MEDS ORDERED: LOSA50TA36 PO ×2 (11:35)
[2017-08-06] MEDS ORDERED: METO-352 PO (11:42)
[2017-08-06] MEDS ORDERED: ASPI-983 PO (11:42)
[2017-08-06] MEDS ORDERED: METF500T8 PO (11:42)
[2017-08-06] MEDS ORDERED: APIX5TAB PO (11:42)
--- NOTE | 2017-08-06 11:52 | Cardiology Progress Note ---
Subjective Date Seen by Provider: Aug 06, 2017 Time Seen by Provider: 11:50 Subjective/Events-last exam Patient is sitting up in bed, reports he is feeling much better today. Denies any CP or dyspnea. Review of Systems General: No Night Sweats, Fatigue, Malaise HEENT: No Visual Changes, No Dysphasia Pulmonary: No Dyspnea, No Cough Cardiovascular: No: Chest Pain, Palpitations, Paroxysmal Noc. Dyspnea, Edema Gastrointestinal: No: Nausea, Vomiting, Abdominal Pain, Constipation Genitourinary: No Dysuria, No Frequency Musculoskeletal: No: neck pain, back pain Neurological: No: Weakness, Numbness, Change in speech Objective-Cardiology Exam Last Set of Vital Signs Vital Signs 08/04/17 08/06/17 08/06/17 08/06/17 08/06/17 08/06/17 17:39 05:00 06:00 07:00 08:00 09:21 Temp 99.1 Pulse 82 Resp 25 B/P (MAP) 127/65 Pulse Ox 93 O2 Delivery Room Air O2 Flow Rate 1.00 FiO2 100 Capillary Refill : Less Than 3 Seconds I&O Intake and Output 08/07/17 00:00 Intake Total 0 ml Output Total 375 ml Balance -375 ml Intake Oral 0 ml Output Urine Total 375 ml General: Alert, Oriented X3, Cooperative HEENT: Atraumatic, PERRLA Neck: Supple, No JVD, No Thyromegaly Lungs: Clear to Auscultation, Normal Air Movement Heart: Regular Rate, Normal S1, Normal S2, No Murmurs Abdomen: Normal Bowel Sounds, Soft, No Tenderness, No Hepatosplenomegaly, No Masses Extremities: No Clubbing, No Cyanosis, No Edema, Normal Pulses, No Tenderness/ Swelling Skin: No Rashes, No Breakdown, No Significant Lesion Neuro: Normal Speech, Strength at 5/5 X4 Ext, Normal Tone, Sensation Intact Psych/Mental Status: Mental Status NL, Mood NL Results Lab Laboratory Tests 08/06/17 05:15 A/P-Cardiology Admission Diagnosis Atrial flutter with rapid ventricular response Sepsis Pneumonia Hypertension Hyperlipidemia Assessment/Plan Atrial flutter with rapid ventricular response, history of paroxysmal atrial flutter, converted to SR on Cardizem gtt. Maintained on Eliquis, continue to monitor. [id number] score is 6, yearly risk of stroke without oral anticoagulation is 9.8. Patient is maintained on Eliquis, continue to monitor Sepsis, pneumonia, receiving antibiotics, managed by primary care physician Alessandra diverticulum, status post surgical repair done on July 24, 2017. Mild erythema at the wound site. Neck abscess- s/p I&D, on antibiotics. Continue to monitor. History of CVA Occurred on 07/18/2016. MRI of the head suggested a stroke. Mild dysphagia postoperatively. Managed by primary care physician History of syncope, patient had tilt table test which revealed severe dizziness and hypotension back in February 2013. had another episode the morning of admission , probably secondary to sepsis and pneumonia Hypertension, blood pressure is controlled, continue to monitor. Hyperlipidemia, continue to monitor lipids Diabetes mellitus, followed and managed by primary care physician. Continue to monitor Bilateral moderate carotid stenosis, 40-59 percent per most recent carotid duplex done July 02, 2016, continue to monitor Clinical Quality Measures DVT/VTE Risk/Contraindication: Risk Factor Score Per Nursin RFS Level Per Nursing on Admit: 4+=Very High CAMELIA KING Aug 06, 2017 11:52
[2017-08-06] MEDS: DILTIAZEM DRIP 100 MG/NS 100 ML IV SCH ×2 (12:30)
--- NOTE | 2017-08-06 13:05 | Electrophysiology Consultation ---
HPI-Cardiology Cardiology Consultation: Date of Consultation 08/06/17 Date of Admission Attending Physician Tariq Howe DO Admitting Physician Tariq Howe DO Consulting Physician Lise NUÑEZ MD HPI: Time Seen by Provider: 13:34 Chief Complaint: atrial fibrillation this is a 82-year-old gentleman with history of atrial fibrillation. He had recent esophageal surgery for Zenker's diverticulum. Patient also has sepsis secondary to possible abscess in the neck. He is currently on IV fluids and broad-spectrum antibiotics. He also had atrial fibrillation with rapid ventricular rate. He was kept on Cardizem IV infusion overnight. That was discontinued this morning. He does not complain of any significant cardiac symptoms on my history this afternoon. His rhythm is still atrial fibrillation with rapid ventricular rate. Ventricular rate is in the 110. Systolic blood pressure was 140 mmHg. Review of Systems-Cardiology Review of Systems Constitutional: As described under HPI, No no symptoms reported, No chills, No fever, No lightheadedness, No malaise, No tiredness, No weight loss, No weight gain, No other Eyes: No As described under HPI, No no symptoms reported, No blindness, No blurred vision, No contact lenses, No drainage, No decreased acuity, No foreign body sensation, No glasses, No inflammation, No pain, No photophobia, No previous injury, No shadows, No tunnel vision, No other, No vision change Ears/Nose/Throat: As described under HPI Respiratory: No no symptoms reported, No As described under HPI, No cough, No orthopnea, No shortness of breath, No SOB with excertion, No SOB at rest, No stridor, No wheezing, No other Cardiovascular: irregular heart rate Gastrointestinal: No no symptoms reported, No As described under HPI, No abdomen distended, No abdominal pain, No blood streaked bowels, No constipation , No diarrhea, No difficulty swallowing, No nausea, No poor appetite, No poor fluid intake, No rectal bleeding, No vomiting, No other, No nausea/vomiting/ diarrhea, No stool coloration changes Genitourinary: No no symptoms reported, No As described under HPI, No burning, No dysuria, No discharge, No frequency, No flank pain, No hematuria, No incontinence, No pain, No urgency, No other, No urine frequency changes, No urine coloration changes Musculoskeletal: No no symptoms reported, No As describe under HPI, No back pain, No gout, No joint pain, No joint swelling, No muscle pain, No muscle stiffness, No neck pain, No other Skin: No no symptoms reported, No As described under HPI, No change in color, No change in hair/nails, No dryness, No lesions, No lumps, No rash, No other, No skin related problems, No ulcerations, No rash on exposed areas, No ulcerations on exposed areas Psychiatric/Neurological: No no symptoms reported, No As described under HPI, No anxiety, No depression, No emotional problems, No headache, No numbness, No pre-existing deficit, No seizure, No tingling, No tremors, No weakness, No other , No focal weakness, No syncope VAD-Rxezva-Tvkhqg Hx Patient Social History Marrital Status: Employed/Student: unemployed, retired Alcohol Use: Denies Use Recreational Drug Use: No Smoking Status: Former Smoker Former smoker/When Quit: May 01, 1984 Recent Foreign Travel: No Recent Infectious Disease Expo: No Physical Abuse Screen: No Sexual Abuse: No Immunizations Up To Date Tetanus Booster (TDap): Unknown Date of Pneumonia Vaccine: Jul 27, 2013 Date of Influenza Vaccine: Jul 09, 2016 Past Medical History PMH As described under Assessment. Family Medical History Family History: FH: liver disease 19 MOTHER FH: lung cancer 19 FATHER Allergies and Home Medications Allergies Coded Allergies: No Known Drug Allergies (Verified , 08/04/17) Home Medications Alfuzosin HCl 10 Mg Tab.er.24h, 10 MG PO 1900, (Reported) Apixaban 5 Mg Tablet, 5 MG PO BID, (Reported) Aspirin 81 Mg Tablet.dr, 81 MG PO HS, (Reported) Atorvastatin Calcium 40 Mg Tablet, 40 MG PO HS, (Reported) Bethanechol Chloride 25 Mg Tablet, 25 MG PO QID, (Reported) Dexlansoprazole 60 Mg Cap.dr.bp, 60 MG PO DAILY, (Reported) Digoxin 125 Mcg Tablet, 125 MCG PO DAILY, (Reported) Diltiazem HCl 240 Mg Cap.er.24h, 240 MG PO DAILY, (Reported) Hydrocodone/Acetaminophen 1 Each Tablet, 0.5-1 TAB PO Q4H PRN for PAIN-MODERATE, (Reported) Ketoconazole 120 Ml Shampoo, TOP DAILY, (Reported) Losartan Potassium 50 Mg Tablet, 50 MG PO BID, (Reported) Metformin HCl 500 Mg Tab.er.24h, 500 MG PO HS, (Reported) Metoprolol Succinate 50 Mg Tab.er.24h, 50 MG PO HS, (Reported) Physical Exam-Cardiology Physical Exam Vital Signs/I&O Vital Sign - Last 12Hours 08/06/17 08/06/17 08/06/17 08/06/17 02:00 03:00 03:08 04:00 Temp 98.1 Pulse 70 75 Resp 17 25 B/P (MAP) 117/58 127/70 Pulse Ox 95 96 93 O2 Delivery Nasal Cannula Nasal Cannula Nasal Cannula Nasal Cannula O2 Flow Rate 3.00 3.00 5.00 1.00 08/06/17 08/06/17 08/06/17 08/06/17 04:00 04:00 05:00 05:45 Pulse 142 87 96 Resp 18 23 16 B/P (MAP) 131/74 127/70 125/62 Pulse Ox 96 94 94 94 O2 Delivery Nasal Cannula Nasal Cannula Nasal Cannula Room Air O2 Flow Rate 1.00 1.00 1.00 08/06/17 08/06/17 08/06/17 08/06/17 06:00 07:00 07:00 08:00 Pulse 77 82 87 Resp 25 25 B/P (MAP) 127/65 144/70 Pulse Ox 91 93 O2 Delivery Room Air Room Air Room Air 08/06/17 08/06/17 08/06/17 08/06/17 08:00 08:00 09:21 10:00 Temp 99.1 Pulse 86 158 Resp 20 14 B/P (MAP) 143/71 160/90 Pulse Ox 91 93 93 O2 Delivery Room Air Room Air Room Air Room Air 08/06/17 08/06/17 08/06/17 11:00 12:00 12:00 Pulse 102 77 Resp 19 24 B/P (MAP) 133/92 129/83 Pulse Ox 91 90 O2 Delivery Room Air Room Air Room Air Capillary Refill : Less Than 3 Seconds Constitutional: No appears stated age, No AAO x 3, No apparent distress, No PERRL, No well-developed, No well-nourished, No other HEENT: other (neck abscess) Neck: No non-tender, No full range of motion, No supple, No normal inspection, No carotid bruit, No limited range of motion, No lymphadenopathy (R), No lymphadenopathy (L), No tender lateral, No tender midline, No thyromegaly, No other, No carotid pulses are 2 + bilaterally, No with good upstrokes Respiratory: No accessory muscle use, No respiratory distress, No chest tender , No chest expansion is symmetric, No chest is bilaterally symmetric, No lungs clear to percussion, No lungs clear to auscultation, No crackles, No rhonchi, No rales, No stridor, No wheezing, No pleural rub, No other Cardiovascular: irregularly irregular, tachycardia, S1 and S2 Gastrointestinal: No tender, No soft, No round, No distended, No pulsatile mass , No organomegaly, No guarding, No rebound, No tenderness, No hernia, No mass, No audible bowel sounds, No abnormal bowel sounds, No abdominal bruits, No spleenomegaly, No other Rectal: deferred Extremities: No normal range of motion, No non-tender, No normal inspection, No pedal edema, No calf tenderness, No normal capillary refill, No pelvis stable , No calf tenderness, No inflammation, No pedal edema, No slow capillary refill , No swelling, No other, No abrasion, No clubbing, No cyanosis, No ecchymosis, No laceration, No no lower extremity edema bilateral, No significant edema, No tenderness, No wound Neurologic/Psychiatric: No table tender sludge II-XII nml as tested, No no motor/sensory deficits, No alert, No normal mood/affect, No oriented x 3, No abnormal cerebellar tests, No abnormal table tender sludge II-XII, No abnormal gait, No aphasia, No EOM palsy, No facial droop, No motor weakness, No sensory deficit, No depressed affect, No disoriented x 3, No other, No grossly intact, No power is 5/5 both on sides Skin: No normal color, No warm/dry, No cyanosis, No cool, No diaphoresis, No damp, No ecchymosis, No jaundice, No mottled, No pallor, No rash, No tattoos/ piercings, No ulcerations, No rash on exposed areas, No ulcerations on exposed areas, No other Data Review Labs Laboratory Tests 08/06/17 05:15: White Blood Count 10.2, Red Blood Count 3.81L, Hemoglobin 12.0L, Hematocrit 36L , Mean Corpuscular Volume 95, Mean Corpuscular Hemoglobin 32, Mean Corpuscular Hemoglobin Concent 33, Red Cell Distribution Width 13.3, Platelet Count 240, Mean Platelet Volume 9.9, Neutrophils (%) (Auto) 85H, Lymphocytes (%) (Auto) 6L , Monocytes (%) (Auto) 9, Eosinophils (%) (Auto) 0, Basophils (%) (Auto) 0, Neutrophils # (Auto) 8.6H, Lymphocytes # (Auto) 0.6L, Monocytes # (Auto) 0.9, Eosinophils # (Auto) 0.0, Basophils # (Auto) 0.0, Sodium Level 139, Potassium Level 3.7, Chloride Level 110H, Carbon Dioxide Level 19L, Anion Gap 10, Blood Urea Nitrogen 15, Creatinine 0.67, Estimat Glomerular Filtration Rate > 60, BUN/ Creatinine Ratio 22, Glucose Level 98, Calcium Level 8.2L, Phosphorus Level 2.0L , Magnesium Level 1.9 Microbiology 08/04/17 Blood Culture - Preliminary, Resulted No growth 08/05/17 Gram Stain - Final, Resulted 08/05/17 Wound Culture - Preliminary, Resulted Strep Or Related Genus ECG Impression ECG Initial ECG Impression: Atrial Fibrillation w/RVR A/P-Cardiology Assessment/Admission Diagnosis Atrial flutter with rapid ventricular response Sepsis Pneumonia Hypertension Hyperlipidemia Plan 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 Recent esophageal surgery. Has been on Eliquis since surgery however was held 3 days ago. Eliquis was restarted this morning. Patient is at elevated risk of stroke with a history of stroke (confirmed on MRI head; 06/2016) as well and CHADSVASC score of 6. Transesophageal echocardiogram and cardioversion is contraindicated due to recent esophageal surgery. continue metoprolol, digoxin. Will restart outpatient dose calcium channel lalita. patient has sepsis and is on broad-spectrum antibiotics. Source of infection is likely a neck abscess. once his infection resolves, atrial fibrillation should be better controlled. Thank you for your consultation. Please call me if you have any questions. Itz Nuñez MD, FACP, FACC, FSCAI, FHRS, CCDS Interventional Cardiology Cardiac Electrophysiology Vascular Medicine and Endovascular Interventions Clinical Quality Measures DVT/VTE Risk/Contraindication: Risk Factor Score Per Nursin RFS Level Per Nursing on Admit: 4+=Very High Lise NUÑEZ MD Aug 06, 2017 1:05 pm
--- NOTE | 2017-08-06 14:52 | Cardiology Progress Note ---
Subjective Date Seen by Provider: Aug 06, 2017 Time Seen by Provider: 14:50 Subjective/Events-last exam Patient is feeling better, swallowing better, denied any chest pain, heart rate is better controlled. Review of Systems General: No Chills, No Night Sweats, No Fatigue, No Malaise, No Appetite, No Other HEENT: No Head Aches, No Visual Changes, No Eye Pain, No Ear Pain, No Dysphasia , No Sinus Congestion, No Post Nasal Drip, No Sore Throat, No Other Pulmonary: No Dyspnea, No Cough, No Pleuritic Chest Pain, No Other Cardiovascular: No: Chest Pain, Palpitations, Orthopnea, Paroxysmal Noc. Dyspnea, Edema, Lt Headedness, Other Objective-Cardiology Exam Last Set of Vital Signs Vital Signs 08/04/17 08/06/17 17:39 05:00 O2 Flow Rate 1.00 FiO2 100 Capillary Refill : Less Than 3 Seconds I&O Intake and Output 08/07/17 00:00 Intake Total 0 ml Output Total 375 ml Balance -375 ml Intake Oral 0 ml Output Urine Total 375 ml General: Alert, Oriented X3, Cooperative HEENT: Atraumatic, PERRLA Neck: Supple, No JVD, No Thyromegaly Lungs: Clear to Auscultation, Normal Air Movement Heart: Normal S1, Normal S2, No Murmurs, Other Abdomen: Normal Bowel Sounds, Soft, No Tenderness, No Hepatosplenomegaly, No Masses Extremities: No Clubbing, No Cyanosis, No Edema, Normal Pulses, No Tenderness/ Swelling Skin: No Rashes, No Breakdown, No Significant Lesion Neuro: Normal Speech, Strength at 5/5 X4 Ext, Normal Tone, Sensation Intact Psych/Mental Status: Mental Status NL, Mood NL Results Lab Laboratory Tests 08/06/17 05:15 A/P-Cardiology Admission Diagnosis Atrial flutter with rapid ventricular response Sepsis Pneumonia Hypertension Hyperlipidemia Assessment/Plan Atrial flutter with rapid ventricular response, history of paroxysmal atrial flutter, rate is better controlled, maintained on digoxin and metoprolol, I will add Cardizem orally and monitor tolerance and response. [id number] score is 6, yearly risk of stroke without oral anticoagulation is 9.8. Patient is maintained on Eliquis, continue to monitor Sepsis, pneumonia, receiving antibiotics, managed by primary care physician Alessandra diverticulum, status post surgical repair done on July 24, 2017, abscess postoperatively, status post IND. Neck abscess- s/p I&D, on antibiotics. Continue to monitor. History of CVA Occurred on 07/18/2016. MRI of the head suggested a stroke. Mild dysphagia postoperatively. Managed by primary care physician History of syncope, patient had tilt table test which revealed severe dizziness and hypotension back in February 2013. had another episode the morning of admission , probably secondary to sepsis and pneumonia Hypertension, blood pressure is controlled, continue to monitor. Hyperlipidemia, continue to monitor lipids Diabetes mellitus, followed and managed by primary care physician. Continue to monitor Bilateral moderate carotid stenosis, 40-59 percent per most recent carotid duplex done July 02, 2016, continue to monitor Clinical Quality Measures DVT/VTE Risk/Contraindication: Risk Factor Score Per Nursin RFS Level Per Nursing on Admit: 4+=Very High CRISS FOSTER MD Aug 06, 2017 14:52
--- NOTE | 2017-08-06 14:57 | Physical Therapy Daily Note ---
PT Daily Note-Current Subjective Pt reports he is feeling better today. Agreeable to sit up in the chair. Mental Status Patient Orientation: Person, Place, Time, Situation Transfers Functional [place] Measure 0=Not Assessed/NA 4=Minimal Assistance 1=Total Assistance 5=Supervision or Setup 2=Maximal Assistance 6=Modified [place] 3=Moderate Assistance 7=Complete IndependenceIRFPAI Quality Coding Scale 6 Independent with activity with or without an assistive device 5 Patient requires set up or clean up by helper. Patient completes activity by themselves 4 Supervision or touching assist (CGA). [place] provide cues , steadying assist 3 The helper provides less than half the effort to complete the activity 2 The helper provides more than half the effort to complete the activity 1 Dependent. The helper does all the effort to complete an activity 7 Patient refused to complete or attempt activity 9 The patient did not perform the activity before the current illness or injury 88 Not attempted due to Medical conditions or safety concerns Weight Bearing Right Lower Extremity: Right Full Weight Bearing Left Lower Extremity: Left Full Weight Bearing Treatments Supine to sit EOB with mod assist and skilled cues for sequencing. Sat EOB several minutes and worked on deep breathing and trunk control with SBA. Sit to stand x 2 with FWW with min assist and then transferred to the chair with FWW wth CGA. [facility] performed AP, LAQ and marching. Educated pt on importance of OOB activity and to sit up at least 30 minutes. Family present post treatment and needs met. Assessment Current Status: Good Progress Some difficulty with bed mobility but once up, did well. LImited functional act tolerance noted. PT Seat Joiner Goals [facility] Goals PT Seat Joiner Goals Time Frame: Aug 15, 2017 Transfers (B,C,W/C) (FIM): 6 Gait (FIM): 6 Gait distance (FIM): 3=150 ft Distance: 200' Gait Level of Assist: 6 Gait Assistive Device: FWW PT Plan Problem List Problem List: Activity Tolerance, Functional Strength Treatment/Plan Treatment Plan: Continue Plan of Care Treatment Plan: Bed Mobility, Education, Functional Activity Jennifer, Functional Strength, Gait, Safety, Therapeutic Exercise, Transfers Treatment Duration: Aug 15, 2017 Frequency: 6 times per week Estimated Hrs Per Day: .25 hour per day Patient and/or Family Agrees t: Yes Safety Risks/Education Patient Education: Transfer Techniques, Safety Issues Teaching Recipient: Patient, Family Teaching Methods: Discussion Response to Teaching: Verbalize Understanding Discharge Recommendations Therapy D/C Recommendations: Physical Therapy Home Care Time/GCodes Time In: 1400 Time Out: 1423 Total Billed Treatment Time: 23 Total Billed Treatment visit FA 23 PRINCE CHARLTON PT Aug 06, 2017 14:57
[2017-08-06] MEDS: DILTIAZEM 30 MG (CARDIZEM) TAB PO SCH (15:22)
--- NOTE | 2017-08-06 15:28 | OPERATIVE REPORT ---
DATE OF SERVICE: 08/05/2017 ATTENDING PRIMARY CARE PHYSICIAN: Dr. Tariq Howe. PREOPERATIVE DIAGNOSIS: Left deep neck abscess, status post Zenker's diverticulectomy on 07/24/2017. POSTOPERATIVE DIAGNOSIS: Left deep neck abscess, status post Zenker's diverticulectomy on 07/24/2017. PROCEDURE: Incision and drainage of complex left neck abscess. SURGEON: Kristen Zhang M.D. ANESTHESIA: Local. ESTIMATED BLOOD LOSS: Minimal. FINDINGS: Loculated abscess tracking medially as well as inferiorly towards the mediastinum. Purulence as well as brown fluid identified. DISPOSITION: The patient tolerated the procedure well. INDICATIONS: The patient is an 81-year-old male with a history of dysphagia. He underwent endoscopic evaluation as well as a contrast study, which did show a Zenker's diverticulum. He was referred to [facility], underwent an excision of a Zenker's diverticulum on 07/24/2017. The patient and family report that since returning home, which was approximately 2 days after surgery, he has had continued problems with dysphagia. They report that he has not been able to take in significant amounts of liquids or solids. At home, he also appears to have developed dehydration and weakness. In the past few days, he has developed swelling in the neck, which has worsened his dysphagia. He does not report any respiratory symptoms. He was admitted and a CT scan was performed, which did show a fluid collection within the deep space of the neck consistent with an abscess formation. He has had elevated white count as well as low grade fevers. DESCRIPTION OF PROCEDURE: The neck was prepped and draped in standard surgical fashion. Before the procedure, 50 mcg of fentanyl were given through his IV line. The skin incision was then anesthetized using 1% lidocaine with epinephrine. The previous Dermabond was then peeled off using Adson pickups. Along the previous skin incision, the suture was cut using a sharp dissecting scissors. The subcutaneous tissue was then opened using sharp dissecting scissors. A few Vicryl sutures were identified and removed. Using a finger dissection, 2 abscess cavities were identified, one tracking medially and one inferiorly. This appeared to be purulent fluid mixed with a brown serous fluid consistent with an abscess. These cavities were then copiously irrigated with sterile saline and suctioned out. The fluid was also sent for culture and sensitivity. The wound was left open and the abscess cavities were then packed with iodoform gauze and covered with a sterile gauze followed by tape. The patient stated immediate relief after decompression of the abscesses. We will continue with packing of the wound on a daily basis and allow to close by secondary intention. Before starting a dye, we will consult with speech pathology to proceed with contrast video swallow study to rule out aspiration risk as well as to rule out any leaks. Job ID: [id number] DocumentID: [id number] Dictated Date: 08/05/2017 13:04:26 Document Preparation Specialist Date: 08/06/2017 02:36:50 Dictated By: KRISTEN ZHANG MD
[2017-08-06] MEDS: fentaNYL INJECTION 100 MCG/2 ML AMP IVP PRN (15:33)
--- NOTE | 2017-08-06 16:39 | Progress Note (SOAP) ---
Subjective Date Seen by Provider: Aug 06, 2017 Time Seen by Provider: 15:00 Subjective/Events-last exam doing much better. decreased neck edema and swelling. passed video swallow. Objective Exam Vital Signs Date Time Temp Pulse Resp B/P (MAP) Pulse Ox O2 Delivery O2 Flow Rate FiO2 08/06/17 16:00 Room Air 08/06/17 16:00 82 21 140/90 90 Room Air 08/06/17 15:00 147 26 150/83 94 Room Air 08/06/17 14:50 95 Room Air 08/06/17 14:00 144 13 129/83 93 Room Air 08/06/17 13:00 90 08/06/17 13:00 90 18 133/92 90 Room Air 08/06/17 12:00 77 24 129/83 90 Room Air 08/06/17 12:00 Room Air 08/06/17 11:00 102 19 133/92 91 Room Air 08/06/17 10:00 158 14 160/90 93 Room Air 08/06/17 09:21 93 Room Air 08/06/17 08:00 99.1 Room Air 08/06/17 08:00 86 20 143/71 91 Room Air 08/06/17 08:00 Room Air 08/06/17 07:00 87 25 144/70 93 Room Air 08/06/17 07:00 82 08/06/17 06:00 77 25 127/65 91 Room Air 08/06/17 05:45 96 16 125/62 94 Room Air 08/06/17 05:00 87 23 127/70 94 Nasal Cannula 1.00 08/06/17 04:00 94 Nasal Cannula 1.00 08/06/17 04:00 142 18 131/74 96 Nasal Cannula 1.00 08/06/17 04:00 98.1 Nasal Cannula 1.00 08/06/17 03:08 93 Nasal Cannula 5.00 08/06/17 03:00 75 25 127/70 96 Nasal Cannula 3.00 08/06/17 02:00 70 17 117/58 95 Nasal Cannula 3.00 08/06/17 01:00 77 21 109/61 95 Nasal Cannula 3.00 08/06/17 01:00 77 08/06/17 00:27 68 08/06/17 00:00 97.1 Nasal Cannula 3.00 08/06/17 00:00 69 22 95/67 95 Nasal Cannula 3.00 08/06/17 00:00 98 Nasal Cannula 3.00 08/05/17 23:00 64 20 87/55 98 Nasal Cannula 5.00 08/05/17 22:00 141 19 102/61 98 Nasal Cannula 5.00 08/05/17 21:00 146 19 107/62 93 Nasal Cannula 5.00 08/05/17 20:11 93 Nasal Cannula 5.00 08/05/17 20:00 97.3 78 22 105/59 96 Nasal Cannula 5.00 08/05/17 20:00 96 Nasal Cannula 5.00 08/05/17 19:30 Nasal Cannula 5.00 08/05/17 19:00 141 08/05/17 19:00 141 17 96/61 100 Nasal Cannula 5.00 08/05/17 18:00 141 18 100/60 99 Nasal Cannula 5.00 08/05/17 17:00 141 21 111/61 97 Nasal Cannula 5.00 I & O 08/07/17 07:00 Intake Total 0 ml Output Total 650 ml Balance -650 ml Capillary Refill : Less Than 3 Seconds General Appearance: No Apparent Distress HEENT: PERRL/EOMI Neck: Full Range of Motion, Other (wound open with good granulation bed) Respiratory: Chest Non Tender, Lungs Clear Cardiovascular: Regular Rate, Rhythm Gastrointestinal: normal bowel sounds, non tender, soft Extremity: Normal Capillary Refill Neurologic/Psychiatric: Alert, Oriented x3 Skin: Normal Color Lymphatic: No Adenopathy Results Lab Laboratory Tests 08/06/17 05:15: White Blood Count 10.2, Red Blood Count 3.81L, Hemoglobin 12.0L, Hematocrit 36L , Mean Corpuscular Volume 95, Mean Corpuscular Hemoglobin 32, Mean Corpuscular Hemoglobin Concent 33, Red Cell Distribution Width 13.3, Platelet Count 240, Mean Platelet Volume 9.9, Neutrophils (%) (Auto) 85H, Lymphocytes (%) (Auto) 6L , Monocytes (%) (Auto) 9, Eosinophils (%) (Auto) 0, Basophils (%) (Auto) 0, Neutrophils # (Auto) 8.6H, Lymphocytes # (Auto) 0.6L, Monocytes # (Auto) 0.9, Eosinophils # (Auto) 0.0, Basophils # (Auto) 0.0, Sodium Level 139, Potassium Level 3.7, Chloride Level 110H, Carbon Dioxide Level 19L, Anion Gap 10, Blood Urea Nitrogen 15, Creatinine 0.67, Estimat Glomerular Filtration Rate > 60, BUN/ Creatinine Ratio 22, Glucose Level 98, Calcium Level 8.2L, Phosphorus Level 2.0L , Magnesium Level 1.9 Microbiology 08/04/17 Blood Culture - Preliminary, Resulted No growth 08/05/17 Gram Stain - Final, Resulted 08/05/17 Wound Culture - Preliminary, Resulted Strep Or Related Genus Assessment/Plan Assessment/Plan Assess & Plan/Chief Complaint neck abscess s/p zenker's diverticulectomy. advance to dys3 diet. ok to transfer to floor. continue iv abx. Clinical Quality Measures DVT/VTE Risk/Contraindication: Risk Factor Score Per Nursin RFS Level Per Nursing on Admit: 4+=Very High KRISTEN ZHANG MD Aug 06, 2017 4:39 pm
[2017-08-06] MEDS: ATORVASTATIN 40 MG (LIPITOR) TABLET PO SCH (20:55)
[2017-08-06] MEDS ORDERED: meTOprolol 5 MG/5 ML (LOPRESSOR) VIAL IV ONE (21:45)
[2017-08-06] MEDS ORDERED: meTOprolol 5 MG/5 ML (LOPRESSOR) VIAL IV PRN (21:45)
[2017-08-07] VITALS (29 sets, daily range): BP systolic 110–160; BP diastolic 63–107
[2017-08-07] MEDS: DILTIAZEM 30 MG (CARDIZEM) TAB PO SCH ×2 (00:28→05:25)
[2017-08-07] MEDS: PIPERACILLIN SODIUM/TAZOBACTAM 4.5 GM in NS (IVPB) 100 ML IV SCH ×3 (00:28→17:46)
[2017-08-07] MEDS: RT-ALBUTEROL/IPRATROPIUM 3 ML (DUONEB) VIAL INH SCH ×3 (02:39→20:17)
[2017-08-07] MEDS ORDERED: DILTIAZEM 25 MG/5 ML INJ (CARDIZEM) VIAL ONE (04:16)
[2017-08-07] MEDS: DILTIAZEM DRIP 100 MG/NS 100 ML IV SCH ×2 (04:29)
[2017-08-07] MEDS ORDERED: DILTIAZEM 25 MG/5 ML INJ (CARDIZEM) VIAL IVP ONE (04:30)
[2017-08-07 04:42] LABS: BASOPHILS % (AUTO) 0 % (0-10); EOSINOPHILS # (AUTO) 0.2 10^3/uL (0.0-0.3); EOSINOPHILS % (AUTO) 2 % (0-10); LYMPHOCYTES % (AUTO) 10 % (12-44); MEAN CORPUSCULAR HEMOGLOBIN 31 PG (25-34); MEAN CORPUSCULAR HGB CONC 33 G/DL (32-36); MEAN CORPUSCULAR VOLUME 95 FL (80-99); MONOCYTES # (AUTO) 0.9 X 10^3 (0.0-1.0); MONOCYTES % (AUTO) 9 % (0-12); NEUTROPHILS # (AUTO) 7.9 X 10^3 (1.8-7.8); NEUTROPHILS % (AUTO) 79 % (42-75); PLATELET COUNT 289 10^3/uL (130-400); RED CELL DISTRIBUTION WIDTH 13.2 % (10.0-14.5)
[2017-08-07 05:06] LABS: ALANINE AMINOTRANSFERASE 84 U/L (0-55); ALBUMIN 2.9 GM/DL (3.2-4.5); ANION GAP 10 MMOL/L (5-14); ASPARTATE AMINO TRANSFERASE 99 U/L (5-34); BILIRUBIN,TOTAL 0.8 MG/DL (0.1-1.0); BLOOD UREA NITROGEN 11 MG/DL (7-18); BUN/CREATININE RATIO 17; CALCIUM 8.5 MG/DL (8.5-10.1); CARBON DIOXIDE 21 MMOL/L (21-32); CHLORIDE 107 MMOL/L (98-107); CREATININE SERUM 0.64 MG/DL (0.60-1.30); GFR ESTIMATED > 60; GLUCOSE 96 MG/DL (70-105); MAGNESIUM 1.9 MG/DL (1.8-2.4); PHOSPHORUS 1.7 MG/DL (2.3-4.7); POTASSIUM 3.4 MMOL/L (3.6-5.0); SODIUM 138 MMOL/L (135-145); TOTAL PROTEIN 5.7 GM/DL (6.4-8.2)
[2017-08-07] MEDS: KCL 20 MEQ TAB (K-DUR) PO SCH (05:25)
[2017-08-07] MEDS: MAGNESIUM 1 GM/100 ML IVPB 100 ML IV SCH (05:25)
[2017-08-07] MEDS: POTASSIUM CL 10MEQ/50ML IVPB 50 ML IV SCH ×3 (05:25→06:25)
[2017-08-07] MEDS: CLINDAMYCIN INJECTION 600 MG in NS (IVPB) 50 ML IV SCH ×3 (05:39→21:23)
--- NOTE | 2017-08-07 06:51 | Pulmonary Progress Note ---
Subjective Time Seen by Provider: 06:51 Subjective/Events-last exam PT is back on cardizem gtt Exam Exam Vital Signs Date Time Temp Pulse Resp B/P (MAP) Pulse Ox O2 Delivery O2 Flow Rate FiO2 08/07/17 06:00 75 23 135/70 96 Nasal Cannula 2.00 08/07/17 05:00 77 18 133/83 96 Nasal Cannula 2.00 08/07/17 04:29 147 08/07/17 04:00 98 Nasal Cannula 2.00 08/07/17 04:00 149 20 149/89 92 Nasal Cannula 2.00 08/07/17 03:00 98 21 145/80 96 Nasal Cannula 2.00 08/07/17 02:39 96 Room Air 08/07/17 02:00 105 23 145/85 95 Nasal Cannula 2.00 08/07/17 01:00 125 21 142/77 93 Nasal Cannula 2.00 08/07/17 01:00 110 08/07/17 00:00 75 24 146/71 97 Nasal Cannula 2.00 08/07/17 00:00 98 Nasal Cannula 2.00 08/07/17 00:00 98.1 Nasal Cannula 2.00 08/06/17 23:00 111 14 138/103 93 Nasal Cannula 2.00 08/06/17 22:00 73 22 133/71 93 Nasal Cannula 2.00 08/06/17 21:53 Nasal Cannula 2.00 08/06/17 21:00 147 24 154/88 92 Room Air 08/06/17 20:10 98 Room Air 08/06/17 20:00 146 20 95 Room Air 08/06/17 20:00 97.4 Room Air 08/06/17 20:00 96 Room Air 08/06/17 19:00 97 20 142/83 90 Room Air 08/06/17 19:00 102 08/06/17 18:00 86 15 11/76 98 Room Air 08/06/17 17:00 92 27 120/76 100 Room Air 08/06/17 16:00 Room Air 08/06/17 16:00 82 21 140/90 90 Room Air 08/06/17 15:00 147 26 150/83 94 Room Air 08/06/17 14:50 95 Room Air 08/06/17 14:00 144 13 129/83 93 Room Air 08/06/17 13:00 90 08/06/17 13:00 90 18 133/92 90 Room Air 08/06/17 12:00 77 24 129/83 90 Room Air 08/06/17 12:00 Room Air 08/06/17 11:00 102 19 133/92 91 Room Air 08/06/17 10:00 158 14 160/90 93 Room Air 08/06/17 09:21 93 Room Air 08/06/17 08:00 99.1 Room Air 08/06/17 08:00 86 20 143/71 91 Room Air 08/06/17 08:00 Room Air 08/06/17 07:00 87 25 144/70 93 Room Air 08/06/17 07:00 82 General Appearance: No Apparent Distress HEENT: PERRL/EOMI Neck: Full Range of Motion, Other (wound open with good granulation bed) Respiratory: Chest Non Tender, Lungs Clear Cardiovascular: Regular Rate, Rhythm Capillary Refill: Less Than 3 Seconds Gastrointestinal: normal bowel sounds, non tender, soft Extremity: Normal Capillary Refill Neurologic/Psychiatric: Alert, Oriented x3 Skin: Normal Color Lymphatic: No Adenopathy Results Lab Laboratory Tests 08/06/17 05:15 08/07/17 03:55 Assessment/Plan Assessment/Plan Sepsis with pneumonia, and cellulitis -Continue IVF --Zosyn, start Vanco, Clinda -flores cultures -SVNs Q 6 Afib RVR -pt is back on Cardizem gtt -Pt had to have Lopressor and cardizem gtt -Cardiology following Atelectasis -SVN -IS Hypophosphatemia -replace dysphagia -barium swallow - pt is now on dysphagia III diet Left neck cellulitis s/p zenkers diverticulum repair s/p ID per Dr. Malone [id number] Clinical Quality Measures DVT/VTE Risk/Contraindication: Risk Factor Score Per Nursin RFS Level Per Nursing on Admit: 4+=Very High BRITTANY BARRIOS DO Aug 07, 2017 06:51
[2017-08-07] MEDS ORDERED: POTASSIUM PHOSPHATE INJ 30 MM in NS (IVPB) 250 ML IV NR (07:00)
[2017-08-07] MEDS ORDERED: TROUGH ORDER-PHARMACY XX NR (07:00)
--- NOTE | 2017-08-07 07:27 | Progress Note (SOAP) ---
Subjective Time Seen by Provider: 07:15 Subjective/Events-last exam PATIENT HAS SWALLOW STUDIES. Patient taking foot. Abscess doing better. Liver enzymes increased we'll monitor. Apical rate under control. Patient a. work in progress. Patient feeling better Objective Exam Vital Signs Date Time Temp Pulse Resp B/P (MAP) Pulse Ox O2 Delivery O2 Flow Rate FiO2 08/07/17 06:00 75 23 135/70 96 Nasal Cannula 2.00 08/07/17 05:00 77 18 133/83 96 Nasal Cannula 2.00 08/07/17 04:29 147 08/07/17 04:00 98 Nasal Cannula 2.00 08/07/17 04:00 149 20 149/89 92 Nasal Cannula 2.00 08/07/17 03:00 98 21 145/80 96 Nasal Cannula 2.00 08/07/17 02:39 96 Room Air 08/07/17 02:00 105 23 145/85 95 Nasal Cannula 2.00 08/07/17 01:00 125 21 142/77 93 Nasal Cannula 2.00 08/07/17 01:00 110 08/07/17 00:00 75 24 146/71 97 Nasal Cannula 2.00 08/07/17 00:00 98 Nasal Cannula 2.00 08/07/17 00:00 98.1 Nasal Cannula 2.00 08/06/17 23:00 111 14 138/103 93 Nasal Cannula 2.00 08/06/17 22:00 73 22 133/71 93 Nasal Cannula 2.00 08/06/17 21:53 Nasal Cannula 2.00 08/06/17 21:00 147 24 154/88 92 Room Air 08/06/17 20:10 98 Room Air 08/06/17 20:00 146 20 95 Room Air 08/06/17 20:00 97.4 Room Air 08/06/17 20:00 96 Room Air 08/06/17 19:00 97 20 142/83 90 Room Air 08/06/17 19:00 102 08/06/17 18:00 86 15 11/76 98 Room Air 08/06/17 17:00 92 27 120/76 100 Room Air 08/06/17 16:00 Room Air 08/06/17 16:00 82 21 140/90 90 Room Air 08/06/17 15:00 147 26 150/83 94 Room Air 08/06/17 14:50 95 Room Air 08/06/17 14:00 144 13 129/83 93 Room Air 08/06/17 13:00 90 08/06/17 13:00 90 18 133/92 90 Room Air 08/06/17 12:00 77 24 129/83 90 Room Air 08/06/17 12:00 Room Air 08/06/17 11:00 102 19 133/92 91 Room Air 08/06/17 10:00 158 14 160/90 93 Room Air 08/06/17 09:21 93 Room Air 08/06/17 08:00 99.1 Room Air 08/06/17 08:00 86 20 143/71 91 Room Air 08/06/17 08:00 Room Air Capillary Refill : Less Than 3 Seconds General Appearance: No Apparent Distress, Thin HEENT: Normal ENT Inspection Neck: Other (swelling normal of neck) Respiratory: Chest Non Tender, Normal Breath Sounds, No Accessory Muscle Use, No Respiratory Distress Cardiovascular: Other (under control) Gastrointestinal: non tender, soft Results Lab Laboratory Tests 08/07/17 03:55: White Blood Count 10.0, Red Blood Count 4.00L, Hemoglobin 12.5L, Hematocrit 38L , Mean Corpuscular Volume 95, Mean Corpuscular Hemoglobin 31, Mean Corpuscular Hemoglobin Concent 33, Red Cell Distribution Width 13.2, Platelet Count 289, Mean Platelet Volume 10.0, Neutrophils (%) (Auto) 79H, Lymphocytes (%) (Auto) 10L, Monocytes (%) (Auto) 9, Eosinophils (%) (Auto) 2, Basophils (%) (Auto) 0, Neutrophils # (Auto) 7.9H, Lymphocytes # (Auto) 1.0, Monocytes # (Auto) 0.9, Eosinophils # (Auto) 0.2, Basophils # (Auto) 0.0, Sodium Level 138, Potassium Level 3.4L, Chloride Level 107, Carbon Dioxide Level 21, Anion Gap 10, Blood Urea Nitrogen 11, Creatinine 0.64, Estimat Glomerular Filtration Rate > 60, BUN/ Creatinine Ratio 17, Glucose Level 96, Calcium Level 8.5, Phosphorus Level 1.7L , Magnesium Level 1.9, Total Bilirubin 0.8, Aspartate Amino Transf (AST/SGOT) 99H, Alanine Aminotransferase (ALT/SGPT) 84H, Alkaline Phosphatase 84, Total Protein 5.7L, Albumin 2.9L Microbiology 10/9/17 Blood Culture - Preliminary, Resulted No growth 08/05/17 Gram Stain - Final, Resulted 08/05/17 Wound Culture - Preliminary, Resulted Strep Or Related Genus Probable Coag Negative Staph Assessment/Plan Assessment/Plan Assess & Plan/Chief Complaint pneumonia. Abscess neck. Atrial fibrillation. Recent Zenker's diverticulum surgery. Patient feeling better is hungry. . 08/07/17. Pneumonia x-ray not read yet this morning. Abscess neck doing better. Apical rate under control. Elevated liver enzymes we'll monitor. Recent centers for diverticular surgery. Patient taking fluids very Coronary artery disease Clinical Quality Measures DVT/VTE Risk/Contraindication: Risk Factor Score Per Nursin RFS Level Per Nursing on Admit: 4+=Very High ALBARO BRADFORD DO Aug 07, 2017 07:26
--- NOTE | 2017-08-07 07:53 | Diagnostic Imaging Report ---
INDICATION: Pneumonia Portable chest at 5:30 AM Heart size and pulmonary vascularity are normal. There is mild interstitial prominence in the lungs. There are no consolidating alveolar infiltrates. There are no effusions or pneumothoraces. IMPRESSION: Prominent interstitium unchanged from the previous day. Differential considerations would include interstitial fibrosis or interstitial edema. Dictated by: Dictated on workstation # [id number]
--- NOTE | 2017-08-07 08:53 | Cardiology Progress Note ---
Subjective Date Seen by Provider: Aug 07, 2017 Time Seen by Provider: 08:51 Subjective/Events-last exam patient is sitting in a chair, anxious, did not sleep well last night. Denied any chest pain. Went back to tachycardia last night and started again on the Cardizem drip. I discussed with him the management plan, I will increase the dose of the oral Cardizem and stop the drip. Try to get him to a room where he gets more quiet time at night to sleep Review of Systems General: No Chills, No Night Sweats, No Fatigue, No Malaise, No Appetite, No Other HEENT: No Head Aches, No Visual Changes, No Eye Pain, No Ear Pain, No Dysphasia , No Sinus Congestion, No Post Nasal Drip, No Sore Throat, No Other Pulmonary: No Dyspnea, No Cough, No Pleuritic Chest Pain, No Other Cardiovascular: No: Chest Pain, Palpitations, Orthopnea, Paroxysmal Noc. Dyspnea, Edema, Lt Headedness, Other Objective-Cardiology Exam Last Set of Vital Signs Vital Signs 08/04/17 08/07/17 08/07/17 08/07/17 08/07/17 17:39 00:00 06:00 07:00 08:43 Temp 98.1 Pulse 69 Resp 23 B/P (MAP) 135/70 Pulse Ox 92 O2 Delivery Room Air O2 Flow Rate 2.00 FiO2 100 Capillary Refill : Less Than 3 Seconds I&O Intake and Output 08/08/17 00:00 Intake Total 704 ml Output Total 1250 ml Balance -546 ml Intake Oral 500 ml IV Total 204 ml Output Urine Total 1250 ml General: Alert, Oriented X3, Cooperative HEENT: Atraumatic, PERRLA Neck: Supple, No JVD, No Thyromegaly Lungs: Clear to Auscultation, Normal Air Movement Heart: Normal S1, Normal S2, No Murmurs, Other Abdomen: Normal Bowel Sounds, Soft, No Tenderness, No Hepatosplenomegaly, No Masses Extremities: No Clubbing, No Cyanosis, No Edema, Normal Pulses, No Tenderness/ Swelling Skin: No Rashes, No Breakdown, No Significant Lesion Neuro: Normal Speech, Strength at 5/5 X4 Ext, Normal Tone, Sensation Intact Psych/Mental Status: Mental Status NL, Mood NL Results Lab Laboratory Tests 08/07/17 03:55 A/P-Cardiology Admission Diagnosis Atrial flutter with rapid ventricular response Sepsis Pneumonia Hypertension Hyperlipidemia Assessment/Plan Atrial flutter with rapid ventricular response, history of paroxysmal atrial flutter, rate is better controlled, maintained on digoxin and metoprolol and Cardizem, I will increase the dose to 60 mg every 6 hours and stop the drip. [id number] score is 6, yearly risk of stroke without oral anticoagulation is 9.8. Patient is maintained on Eliquis, continue to monitor Sepsis, pneumonia, receiving antibiotics, managed by primary care physician Alessandra diverticulum, status post surgical repair done on July 24, 2017, abscess postoperatively, status post IND, reporting improvement. Neck abscess- s/p I&D, on antibiotics. Continue to monitor. History of CVA Occurred on 07/18/2016. MRI of the head suggested a stroke. Mild dysphagia postoperatively. Managed by primary care physician History of syncope, patient had tilt table test which revealed severe dizziness and hypotension back in February 2013. had another episode the morning of admission , probably secondary to sepsis and pneumonia Hypertension, blood pressure is controlled, continue to monitor. Hyperlipidemia, continue to monitor lipids Diabetes mellitus, followed and managed by primary care physician. Continue to monitor Bilateral moderate carotid stenosis, 40-59 percent per most recent carotid duplex done July 02, 2016, continue to monitor Clinical Quality Measures DVT/VTE Risk/Contraindication: Risk Factor Score Per Nursin RFS Level Per Nursing on Admit: 4+=Very High CRISS FOSTER MD Aug 07, 2017 08:53
[2017-08-07] MEDS ORDERED: DILTIAZEM 60 MG (CARDIZEM) TAB ONE (09:29)
[2017-08-07] MEDS: FAMOTIDINE 20 MG (PEPCID) TABLET PO SCH (09:44)
[2017-08-07] MEDS: ASPIRIN 81 MG CHEW (CHILDREN'S ASA) PO SCH (09:44)
[2017-08-07] MEDS: VALSARTAN 80 MG (DIOVAN) TAB PO SCH (09:44)
[2017-08-07] MEDS: meTOproloL SUCCINATE 50 MG (TOPROL XL) TAB PO SCH (09:45)
[2017-08-07] MEDS: DIGOXIN 0.25 MG (LANOXIN) TAB PO SCH (09:45)
[2017-08-07] MEDS: amLODIPine 10 MG (NORVASC) TAB PO SCH (09:45)
[2017-08-07] MEDS: APIXABAN 5 MG (ELIQUIS) TABLET PO SCH ×2 (09:45→21:22)
[2017-08-07] MEDS: NS IV 1000 ML 1,000 ML IV SCH (10:04)
--- NOTE | 2017-08-07 10:46 | Physical Therapy Daily Note ---
PT Daily Note-Current Subjective Patient reports he is feeling much better. Family is present. Pain Numeric Pain Scale: 0-No Pain Location: No Pain Reported Mental Status Patient Orientation: Normal For Age Attachments: IV Transfers Functional [place] Measure 0=Not Assessed/NA 4=Minimal Assistance 1=Total Assistance 5=Supervision or Setup 2=Maximal Assistance 6=Modified [place] 3=Moderate Assistance 7=Complete IndependenceIRFPAI Quality Coding Scale 6 Independent with activity with or without an assistive device 5 Patient requires set up or clean up by helper. Patient completes activity by themselves 4 Supervision or touching assist (CGA). [place] provide cues , steadying assist 3 The helper provides less than half the effort to complete the activity 2 The helper provides more than half the effort to complete the activity 1 Dependent. The helper does all the effort to complete an activity 7 Patient refused to complete or attempt activity 9 The patient did not perform the activity before the current illness or injury 88 Not attempted due to Medical conditions or safety concerns Transfers (B, C, W/C) (FIM): 6 Scootin Sit to/from Stand: 6 Weight Bearing Right Lower Extremity: Right Full Weight Bearing Left Lower Extremity: Left Full Weight Bearing Gait Training Gait (FIM): 6 Distance (FIM): 3=150 ft Distance: 300' Gait Level of Assist: 6 Gait Assistive Device: FWW steady, functional gait sequence. Exercises Education with patient on performing exercises independently. Spouse and patient report they perform exercises 2-3 times a day. Assessment Patient much improved on this date. Patient is highly motivated with progress. PT Senior Care Goals Senior Care Goals PT Cardiograph Operator Goals Time Frame: Aug 15, 2017 Transfers (B,C,W/C) (FIM): 6 Gait (FIM): 6 Gait distance (FIM): 3=150 ft Distance: 200' Gait Level of Assist: 6 Gait Assistive Device: FWW PT Plan Treatment/Plan Treatment Plan: Continue Plan of Care Treatment Plan: Bed Mobility, Education, Functional Activity Jennifer, Functional Strength, Gait, Safety, Therapeutic Exercise, Transfers Treatment Duration: Aug 15, 2017 Frequency: 6 times per week Estimated Hrs Per Day: .25 hour per day Patient and/or Family Agrees t: Yes Discharge Recommendations Therapy D/C Recommendations: Home w/ Family Support Time/GCodes Time In: 1000 Time Out: 1016 Total Billed Treatment Time: 16 Total Billed Treatment 1 visit GT 16 min STANISLAV BARR PT Aug 07, 2017 10:46
--- NOTE | 2017-08-07 13:11 | Cardiology Progress Note ---
Cardiology SOAP Progress Note Subjective: No complaints. Objective: I&O/Vital Signs Vital Sign - Last 12Hours 08/07/17 08/07/17 08/07/17 08/07/17 02:00 02:39 03:00 04:00 Pulse 105 98 149 Resp 23 21 20 B/P (MAP) 145/85 145/80 149/89 Pulse Ox 95 96 96 92 O2 Delivery Nasal Cannula Room Air Nasal Cannula Nasal Cannula O2 Flow Rate 2.00 2.00 2.00 08/07/17 08/07/17 08/07/17 08/07/17 04:00 04:29 05:00 06:00 Pulse 147 77 75 Resp 18 23 B/P (MAP) 133/83 135/70 Pulse Ox 98 96 96 O2 Delivery Nasal Cannula Nasal Cannula Nasal Cannula O2 Flow Rate 2.00 2.00 2.00 08/07/17 08/07/17 08/07/17 08/07/17 07:00 07:00 07:15 07:30 Pulse 69 65 80 71 Resp 20 18 27 B/P (MAP) 140/74 139/78 134/107 Pulse Ox 95 94 93 O2 Delivery Nasal Cannula Nasal Cannula Nasal Cannula O2 Flow Rate 2.00 2.00 2.00 08/07/17 08/07/17 08/07/17 08/07/17 07:45 08:00 08:15 08:30 Pulse 83 79 71 76 Resp 24 12 27 23 B/P (MAP) 146/78 145/76 144/82 147/78 Pulse Ox 94 90 94 93 O2 Delivery Nasal Cannula Nasal Cannula Nasal Cannula Nasal Cannula O2 Flow Rate 2.00 2.00 2.00 2.00 08/07/17 08/07/17 08/07/17 08/07/17 08:43 08:45 09:00 09:28 Pulse 66 104 86 Resp 15 12 B/P (MAP) 136/77 110/90 Pulse Ox 92 99 93 92 O2 Delivery Room Air Nasal Cannula Nasal Cannula O2 Flow Rate 2.00 2.00 08/07/17 08/07/17 08/07/17 10:00 11:00 12:35 Pulse 153 67 70 Resp 14 17 15 B/P (MAP) 151/89 129/78 Pulse Ox 94 97 90 O2 Delivery Nasal Cannula Nasal Cannula Nasal Cannula O2 Flow Rate 2.00 2.00 2.00 Weight (Pounds): 145 Weight (Ounces): 0.0 Weight (Calculated Kilograms): [id number] Constitutional: No appears stated age, No AAO x 3, No apparent distress, No PERRL, No well-developed, No well-nourished, No other Respiratory: No accessory muscle use, No respiratory distress, No chest tender , No chest expansion is symmetric, No chest is bilaterally symmetric, No lungs clear to percussion, No lungs clear to auscultation, No crackles, No rhonchi, No rales, No stridor, No wheezing, No pleural rub, No other Cardiovascular: irregularly irregular, tachycardia, S1 and S2 Gastrointestional: No tender, No soft, No round, No distended, No pulsatile mass, No organomegaly, No guarding, No rebound, No tenderness, No hernia, No mass, No audible bowel sounds, No abnormal bowel sounds, No abdominal bruits, No spleenomegaly, No other Extremities: No normal range of motion, No non-tender, No normal inspection, No pedal edema, No calf tenderness, No normal capillary refill, No pelvis stable , No calf tenderness, No inflammation, No pedal edema, No slow capillary refill , No swelling, No other, No abrasion, No clubbing, No cyanosis, No ecchymosis, No laceration, No no lower extremity edema bilateral, No significant edema, No tenderness, No wound Neurologic/Psychiatric: No sheet rock taper II-XII nml as tested, No no motor/sensory deficits, No alert, No normal mood/affect, No oriented x 3, No abnormal cerebellar tests, No abnormal sheet rock taper II-XII, No abnormal gait, No aphasia, No EOM palsy, No facial droop, No motor weakness, No sensory deficit, No depressed affect, No disoriented x 3, No other, No grossly intact, No power is 5/5 both on sides Skin: No normal color, No warm/dry, No cyanosis, No cool, No diaphoresis, No damp, No ecchymosis, No jaundice, No mottled, No pallor, No rash, No tattoos/ piercings, No ulcerations, No rash on exposed areas, No ulcerations on exposed areas, No other Results/Procedures: Labs Laboratory Tests 08/07/17 03:55: White Blood Count 10.0, Red Blood Count 4.00L, Hemoglobin 12.5L, Hematocrit 38L , Mean Corpuscular Volume 95, Mean Corpuscular Hemoglobin 31, Mean Corpuscular Hemoglobin Concent 33, Red Cell Distribution Width 13.2, Platelet Count 289, Mean Platelet Volume 10.0, Neutrophils (%) (Auto) 79H, Lymphocytes (%) (Auto) 10L, Monocytes (%) (Auto) 9, Eosinophils (%) (Auto) 2, Basophils (%) (Auto) 0, Neutrophils # (Auto) 7.9H, Lymphocytes # (Auto) 1.0, Monocytes # (Auto) 0.9, Eosinophils # (Auto) 0.2, Basophils # (Auto) 0.0, Sodium Level 138, Potassium Level 3.4L, Chloride Level 107, Carbon Dioxide Level 21, Anion Gap 10, Blood Urea Nitrogen 11, Creatinine 0.64, Estimat Glomerular Filtration Rate > 60, BUN/ Creatinine Ratio 17, Glucose Level 96, Calcium Level 8.5, Phosphorus Level 1.7L , Magnesium Level 1.9, Total Bilirubin 0.8, Aspartate Amino Transf (AST/SGOT) 99H, Alanine Aminotransferase (ALT/SGPT) 84H, Alkaline Phosphatase 84, Total Protein 5.7L, Albumin 2.9L Microbiology 08/04/17 Blood Culture - Preliminary, Resulted No growth 08/05/17 Gram Stain - Final, Resulted 08/05/17 Wound Culture - Preliminary, Resulted Streptococcus Viridans Probable Coag Negative Staph A/P: Assessment/Dx: Atrial flutter with rapid ventricular response Sepsis Pneumonia Hypertension Hyperlipidemia Plan: 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 Recent esophageal surgery. Has been on Eliquis since surgery however was held 3 days ago. Eliquis was restarted yesterday. Patient is at elevated risk of stroke with a history of stroke (confirmed on MRI head; 06/2016) as well and CHADSVASC score of 6. Transesophageal echocardiogram and cardioversion is contraindicated due to recent esophageal surgery. continue metoprolol, digoxin. Calcium channel lalita. Heart rate much better controlled. Will not recommend antiarrhythmic therapy at this point in time. patient has sepsis and is on broad-spectrum antibiotics. Source of infection is likely a neck abscess. once his infection resolves, atrial fibrillation should be better controlled. Thank you for your consultation. Please call me if you have any questions. Itz Nuñez MD, FACP, FACC, FSCAI, FHRS, CCDS Interventional Cardiology Cardiac Electrophysiology Vascular Medicine and Endovascular Interventions Lise NUÑEZ MD Aug 07, 2017 1:11 pm
[2017-08-07] MEDS: DILTIAZEM 60 MG (CARDIZEM) TAB PO SCH ×2 (14:33→18:49)
--- NOTE | 2017-08-07 17:11 | Progress Note (SOAP) ---
Subjective Date Seen by Provider: Aug 07, 2017 Time Seen by Provider: 16:55 Subjective/Events-last exam Patient seen with Dr. Malone. Patient reports doing well. Tolerating diet and ambulating. No Fever/chill. Denies any pain. No N/V. Having BMs. Review of Systems General: No Chills, No Night Sweats Gastrointestinal: No: Nausea, Vomiting, Abdominal Pain, Diarrhea, Constipation Musculoskeletal: No: neck pain Objective Exam Vital Signs Date Time Temp Pulse Resp B/P (MAP) Pulse Ox O2 Delivery O2 Flow Rate FiO2 08/07/17 16:40 98.4 77 22 153/71 92 Room Air 08/07/17 14:46 Room Air 08/07/17 14:45 97.1 79 20 159/81 93 Room Air 08/07/17 13:00 75 08/07/17 12:35 70 15 129/78 90 Room Air 08/07/17 12:00 98.2 Room Air 08/07/17 12:00 Room Air 08/07/17 11:00 67 17 97 Room Air 08/07/17 10:00 153 14 151/89 94 Room Air 08/07/17 09:28 86 92 08/07/17 09:00 104 12 110/90 93 Room Air 08/07/17 08:45 66 15 136/77 99 Room Air 08/07/17 08:43 92 Room Air 08/07/17 08:30 76 23 147/78 93 Room Air 08/07/17 08:15 71 27 144/82 94 Room Air 08/07/17 08:00 97.8 Room Air 08/07/17 08:00 79 12 145/76 90 Room Air 08/07/17 08:00 Room Air 08/07/17 07:45 83 24 146/78 94 Room Air 08/07/17 07:30 71 27 134/107 93 Room Air 08/07/17 07:15 80 18 139/78 94 Room Air 08/07/17 07:00 65 20 140/74 95 Room Air 08/07/17 07:00 69 08/07/17 06:00 75 23 135/70 96 Nasal Cannula 2.00 08/07/17 05:00 77 18 133/83 96 Nasal Cannula 2.00 08/07/17 04:29 147 08/07/17 04:00 98 Nasal Cannula 2.00 08/07/17 04:00 149 20 149/89 92 Nasal Cannula 2.00 08/07/17 03:00 98 21 145/80 96 Nasal Cannula 2.00 08/07/17 02:39 96 Room Air 08/07/17 02:00 105 23 145/85 95 Nasal Cannula 2.00 08/07/17 01:00 125 21 142/77 93 Nasal Cannula 2.00 08/07/17 01:00 110 08/07/17 00:00 75 24 146/71 97 Nasal Cannula 2.00 08/07/17 00:00 98 Nasal Cannula 2.00 08/07/17 00:00 98.1 Nasal Cannula 2.00 08/06/17 23:00 111 14 138/103 93 Nasal Cannula 2.00 08/06/17 22:00 73 22 133/71 93 Nasal Cannula 2.00 08/06/17 21:53 Nasal Cannula 2.00 08/06/17 21:00 147 24 154/88 92 Room Air 08/06/17 20:10 98 Room Air 08/06/17 20:00 146 20 95 Room Air 08/06/17 20:00 97.4 Room Air 08/06/17 20:00 96 Room Air 08/06/17 19:00 97 20 142/83 90 Room Air 08/06/17 19:00 102 08/06/17 18:00 86 15 11/76 98 Room Air I & O 08/08/17 07:00 Intake Total 1885 ml Output Total 650 ml Balance 1235 ml Capillary Refill : Less Than 3 Seconds General Appearance: No Apparent Distress, WD/WN HEENT: PERRL/EOMI Neck: Full Range of Motion, Non Tender, Supple, Other (Open wound left neck with good granulation in wound bed.) Respiratory: Lungs Clear, No Accessory Muscle Use, No Respiratory Distress Cardiovascular: Regular Rate, Rhythm Gastrointestinal: normal bowel sounds, non tender, soft Extremity: Normal Capillary Refill, Normal Inspection, Normal Range of Motion, Non Tender, No Calf Tenderness, No Pedal Edema Neurologic/Psychiatric: Alert, Oriented x3 Skin: Normal Color, Warm/Dry Results Lab Laboratory Tests 08/07/17 03:55: White Blood Count 10.0, Red Blood Count 4.00L, Hemoglobin 12.5L, Hematocrit 38L , Mean Corpuscular Volume 95, Mean Corpuscular Hemoglobin 31, Mean Corpuscular Hemoglobin Concent 33, Red Cell Distribution Width 13.2, Platelet Count 289, Mean Platelet Volume 10.0, Neutrophils (%) (Auto) 79H, Lymphocytes (%) (Auto) 10L, Monocytes (%) (Auto) 9, Eosinophils (%) (Auto) 2, Basophils (%) (Auto) 0, Neutrophils # (Auto) 7.9H, Lymphocytes # (Auto) 1.0, Monocytes # (Auto) 0.9, Eosinophils # (Auto) 0.2, Basophils # (Auto) 0.0, Sodium Level 138, Potassium Level 3.4L, Chloride Level 107, Carbon Dioxide Level 21, Anion Gap 10, Blood Urea Nitrogen 11, Creatinine 0.64, Estimat Glomerular Filtration Rate > 60, BUN/ Creatinine Ratio 17, Glucose Level 96, Calcium Level 8.5, Phosphorus Level 1.7L , Magnesium Level 1.9, Total Bilirubin 0.8, Aspartate Amino Transf (AST/SGOT) 99H, Alanine Aminotransferase (ALT/SGPT) 84H, Alkaline Phosphatase 84, Total Protein 5.7L, Albumin 2.9L Microbiology 08/04/17 Blood Culture - Preliminary, Resulted No growth 08/05/17 Gram Stain - Final, Resulted 08/05/17 Wound Culture - Preliminary, Resulted Streptococcus Viridans Probable Coag Negative Staph Assessment/Plan Assessment/Plan Assess & Plan/Chief Complaint neck abscess s/p zenker's diverticulectomy. Advance to regular diet. continue iv abx. May DC home with augmentin when ok with medical. Clinical Quality Measures DVT/VTE Risk/Contraindication: Risk Factor Score Per Nursin RFS Level Per Nursing on Admit: 4+=Very High FLACA CARDONA G[employer]ER Aug 07, 2017 5:11 pm
[2017-08-07] MEDS: DILTIAZEM 25 MG/5 ML INJ (CARDIZEM) VIAL IVP NR ×2 (20:39→20:58)
[2017-08-07] MEDS: ATORVASTATIN 40 MG (LIPITOR) TABLET PO SCH (21:22)
[2017-08-08] VITALS: BP 153/83
[2017-08-08] MEDS: NS IV 1000 ML 1,000 ML IV SCH (00:05)
[2017-08-08] MEDS: DILTIAZEM 60 MG (CARDIZEM) TAB PO SCH ×5 (00:14→23:26)
[2017-08-08] MEDS: PIPERACILLIN SODIUM/TAZOBACTAM 4.5 GM in NS (IVPB) 100 ML IV SCH ×4 (00:49→23:26)
[2017-08-08 04:00] VITALS: BP 166/74
[2017-08-08] MEDS: CLINDAMYCIN INJECTION 600 MG in NS (IVPB) 50 ML IV SCH ×3 (05:31→21:14)
--- NOTE | 2017-08-08 06:06 | Diagnostic Imaging Report ---
EXAM: CHEST 1 VIEW, AP/PA ONLY INDICATION: Pneumonia. COMPARISON: Chest radiograph 08/07/2017. FINDINGS: Cardiomegaly. Diffuse interstitial prominence has progressed since the prior exam. Increasing airspace opacities in the right mid and lower lung. No definite pleural effusion or pneumothorax. Calcified aorta. No acute osseous findings. IMPRESSION: 1. Increasing airspace opacity in the right mid and lower lung suspicious for pneumonitis. 2. Increasing prominence of the interstitium may represent a degree of fluid overload versus an infectious process. Dictated by: Dictated on workstation # [id number]
[2017-08-08 06:24] LABS: BASOPHILS # (AUTO) 0.1 10^3/uL (0.0-0.1); BASOPHILS % (AUTO) 1 % (0-10); EOSINOPHILS # (AUTO) 0.4 10^3/uL (0.0-0.3); EOSINOPHILS % (AUTO) 5 % (0-10); LYMPHOCYTES # (AUTO) 1.2 X 10^3 (1.0-4.0); LYMPHOCYTES % (AUTO) 15 % (12-44); MEAN CORPUSCULAR HEMOGLOBIN 31 PG (25-34); MEAN CORPUSCULAR HGB CONC 34 G/DL (32-36); MEAN CORPUSCULAR VOLUME 94 FL (80-99); MEAN PLATELET VOLUME 9.8 FL (7.4-10.4); MONOCYTES # (AUTO) 1.1 X 10^3 (0.0-1.0); MONOCYTES % (AUTO) 13 % (0-12); NEUTROPHILS # (AUTO) 5.4 X 10^3 (1.8-7.8); NEUTROPHILS % (AUTO) 66 % (42-75); PLATELET COUNT 313 10^3/uL (130-400); RED CELL DISTRIBUTION WIDTH 13.1 % (10.0-14.5); WHITE BLOOD COUNT 8.1 10^3/uL (4.3-11.0)
[2017-08-08 06:54] LABS: ALANINE AMINOTRANSFERASE 74 U/L (0-55); ALBUMIN 2.9 GM/DL (3.2-4.5); ANION GAP 11 MMOL/L (5-14); ASPARTATE AMINO TRANSFERASE 54 U/L (5-34); BILIRUBIN,TOTAL 0.7 MG/DL (0.1-1.0); BLOOD UREA NITROGEN 6 MG/DL (7-18); BUN/CREATININE RATIO 10; CALCIUM 8.4 MG/DL (8.5-10.1); CARBON DIOXIDE 21 MMOL/L (21-32); CHLORIDE 105 MMOL/L (98-107); GFR ESTIMATED > 60; GLUCOSE 103 MG/DL (70-105); POTASSIUM 3.5 MMOL/L (3.6-5.0); SODIUM 137 MMOL/L (135-145); TOTAL PROTEIN 5.5 GM/DL (6.4-8.2)
[2017-08-08] MEDS ORDERED: KCL 10 MEQ TAB (MICRO K) PO NR (07:30)
--- NOTE | 2017-08-08 07:31 | Progress Note (SOAP) ---
Subjective Time Seen by Provider: 07:15 Subjective/Events-last exam neck abscess Atrial flutter with RVR. Sepsis. Pneumonia. Hypertension. Hyperlipidemia. Patient had 2 episodes of quick heart rate last night area Patient still not steady on his feet to get around. Patient doing better but still a work in progress Objective Exam Vital Signs Date Time Temp Pulse Resp B/P (MAP) Pulse Ox O2 Delivery O2 Flow Rate FiO2 08/08/17 04:00 96.9 97 16 166/74 95 Nasal Cannula 2.00 08/08/17 01:00 86 08/08/17 00:00 98.2 75 17 153/83 96 Nasal Cannula 2.00 08/07/17 21:12 102 153/77 08/07/17 21:07 146 156/67 08/07/17 21:05 75 142/63 08/07/17 21:03 149 146/82 08/07/17 21:00 Room Air 08/07/17 21:00 149 146/81 08/07/17 20:45 98.0 148 24 141/72 97 Room Air 08/07/17 20:42 149 141/72 08/07/17 20:40 149 150/81 08/07/17 20:36 149 160/84 08/07/17 20:18 92 Room Air 08/07/17 19:00 107 08/07/17 16:40 98.4 77 22 153/71 92 Room Air 08/07/17 14:46 Room Air 08/07/17 14:45 97.1 79 20 159/81 93 Room Air 08/07/17 13:00 75 08/07/17 12:35 70 15 129/78 90 Room Air 08/07/17 12:00 98.2 Room Air 08/07/17 12:00 Room Air 08/07/17 11:00 67 17 97 Room Air 08/07/17 10:00 153 14 151/89 94 Room Air 08/07/17 09:28 86 92 08/07/17 09:00 104 12 110/90 93 Room Air 08/07/17 08:45 66 15 136/77 99 Room Air 08/07/17 08:43 92 Room Air 08/07/17 08:30 76 23 147/78 93 Room Air 08/07/17 08:15 71 27 144/82 94 Room Air 08/07/17 08:00 97.8 Room Air 08/07/17 08:00 79 12 145/76 90 Room Air 08/07/17 08:00 Room Air 08/07/17 07:45 83 24 146/78 94 Room Air 08/07/17 07:30 71 27 134/107 93 Room Air Capillary Refill : Less Than 3 Seconds General Appearance: No Apparent Distress, WD/WN HEENT: Normal ENT Inspection Neck: Other (abscess neck) Respiratory: Chest Non Tender, No Accessory Muscle Use, No Respiratory Distress Cardiovascular: Irregularly Irregular Gastrointestinal: non tender, soft Results Lab Laboratory Tests 08/08/17 06:00 Laboratory Tests 08/08/17 06:00: White Blood Count 8.1, Red Blood Count 4.20L, Hemoglobin 13.2L, Hematocrit 39L, Mean Corpuscular Volume 94, Mean Corpuscular Hemoglobin 31, Mean Corpuscular Hemoglobin Concent 34, Red Cell Distribution Width 13.1, Platelet Count 313, Mean Platelet Volume 9.8, Neutrophils (%) (Auto) 66, Lymphocytes (%) (Auto) 15, Monocytes (%) (Auto) 13H, Eosinophils (%) (Auto) 5, Basophils (%) (Auto) 1, Neutrophils # (Auto) 5.4, Lymphocytes # (Auto) 1.2, Monocytes # (Auto) 1.1H, Eosinophils # (Auto) 0.4H, Basophils # (Auto) 0.1, Sodium Level 137, Potassium Level 3.5L, Chloride Level 105, Carbon Dioxide Level 21, Anion Gap 11, Blood Urea Nitrogen 6L, Creatinine 0.60, Estimat Glomerular Filtration Rate > 60, BUN/ Creatinine Ratio 10, Glucose Level 103, Calcium Level 8.4L, Total Bilirubin 0.7 , Aspartate Amino Transf (AST/SGOT) 54H, Alanine Aminotransferase (ALT/SGPT) 74H , Alkaline Phosphatase 82, Total Protein 5.5L, Albumin 2.9L Microbiology 08/04/17 Blood Culture - Preliminary, Resulted No growth 08/05/17 Gram Stain - Final, Resulted 08/05/17 Wound Culture - Preliminary, Resulted Streptococcus Viridans Probable Coag Negative Staph Assessment/Plan Assessment/Plan Assess & Plan/Chief Complaint pneumonia. Abscess neck. Atrial fibrillation. Recent Zenker's diverticulum surgery. Patient feeling better is hungry. . 08/07/17. Pneumonia x-ray not read yet this morning. Abscess neck doing better. Apical rate under control. Elevated liver enzymes we'll monitor. Recent centers for diverticular surgery. Patient taking fluids very Coronary artery disease. . Current/. Pneumonia. Neck Says. Atrial flutter with RVR. Recent Zenker's diverticulum surgery. Patient doing better. Patient's heart rate went to quick 2 times last night and got short of breath. Patient still a little unsteady on feet Clinical Quality Measures DVT/VTE Risk/Contraindication: Risk Factor Score Per Nursin RFS Level Per Nursing on Admit: 4+=Very High ALBARO BRADFORD DO Aug 08, 2017 07:31
[2017-08-08] MEDS ORDERED: FUROSEMIDE 40 MG/4 ML INJ (LASIX) IVP NR (07:45)
[2017-08-08 08:00] VITALS: BP 175/79
[2017-08-08] MEDS: ASPIRIN 81 MG CHEW (CHILDREN'S ASA) PO SCH (08:33)
[2017-08-08] MEDS: DIGOXIN 0.25 MG (LANOXIN) TAB PO SCH (08:33)
[2017-08-08] MEDS: VALSARTAN 80 MG (DIOVAN) TAB PO SCH (08:33)
[2017-08-08] MEDS: meTOproloL SUCCINATE 50 MG (TOPROL XL) TAB PO SCH (08:34)
[2017-08-08] MEDS: FAMOTIDINE 20 MG (PEPCID) TABLET PO SCH (08:34)
[2017-08-08] MEDS: APIXABAN 5 MG (ELIQUIS) TABLET PO SCH ×2 (08:34→21:15)
--- NOTE | 2017-08-08 08:45 | Cardiology Progress Note ---
Subjective Date Seen by Provider: Aug 08, 2017 Time Seen by Provider: 08:40 Subjective/Events-last exam patient is feeling better, had few episodes of tachycardia last night required Cardizem injection. Did not sleep well. Denied any chest pain, no dyspnea or cough. Review of Systems General: No Chills, No Night Sweats, No Fatigue, No Malaise, No Appetite, No Other HEENT: No Head Aches, No Visual Changes, No Eye Pain, No Ear Pain, No Dysphasia , No Sinus Congestion, No Post Nasal Drip, No Sore Throat, No Other Pulmonary: No Dyspnea, No Cough, No Pleuritic Chest Pain, No Other Cardiovascular: No: Chest Pain, Palpitations, Orthopnea, Paroxysmal Noc. Dyspnea, Edema, Lt Headedness, Other Objective-Cardiology Exam Last Set of Vital Signs Vital Signs 08/04/17 08/08/17 08/08/17 17:39 04:00 07:00 Temp 96.9 Pulse 84 Resp 16 B/P (MAP) 166/74 Pulse Ox 95 O2 Delivery Nasal Cannula O2 Flow Rate 2.00 FiO2 100 Capillary Refill : Less Than 3 Seconds I&O Intake and Output 08/09/17 00:00 Intake Total 1200 ml Output Total 1250 ml Balance -50 ml Intake Oral 100 ml IV Total 1100 ml Output Urine Total 1250 ml # Bowel Movements 1 General: Alert, Oriented X3, Cooperative HEENT: Atraumatic, PERRLA Neck: Supple, No JVD, No Thyromegaly Lungs: Clear to Auscultation, Normal Air Movement Heart: Normal S1, Normal S2, No Murmurs, Other Abdomen: Normal Bowel Sounds, Soft, No Tenderness, No Hepatosplenomegaly, No Masses Extremities: No Clubbing, No Cyanosis, No Edema, Normal Pulses, No Tenderness/ Swelling Skin: No Rashes, No Breakdown, No Significant Lesion Neuro: Normal Speech, Strength at 5/5 X4 Ext, Normal Tone, Sensation Intact Psych/Mental Status: Mental Status NL, Mood NL Results Lab Laboratory Tests 08/08/17 06:00 A/P-Cardiology Admission Diagnosis Atrial flutter with rapid ventricular response Sepsis Pneumonia Hypertension Hyperlipidemia Assessment/Plan Atrial flutter with rapid ventricular response, history of paroxysmal atrial flutter, rate is better controlled, maintained on digoxin and metoprolol and Cardizem, I will increase the dose to 90 mg every 6 hours and stop the drip, monitor response [id number] score is 6, yearly risk of stroke without oral anticoagulation is 9.8. Patient is maintained on Eliquis, continue to monitor Sepsis, pneumonia, receiving antibiotics, managed by primary care physician Alessandra diverticulum, status post surgical repair done on July 24, 2017, abscess postoperatively, status post IND, reporting improvement. Neck abscess- s/p I&D, on antibiotics. Continue to monitor. History of CVA Occurred on 07/18/2016. MRI of the head suggested a stroke. Mild dysphagia postoperatively. Managed by primary care physician History of syncope, patient had tilt table test which revealed severe dizziness and hypotension back in February 2013. had another episode the morning of admission , probably secondary to sepsis and pneumonia Hypertension, blood pressure is controlled, continue to monitor. Hyperlipidemia, continue to monitor lipids Diabetes mellitus, followed and managed by primary care physician. Continue to monitor Bilateral moderate carotid stenosis, 40-59 percent per most recent carotid duplex done July 02, 2016, continue to monitor Dr Nuñez is covering for the weekend Clinical Quality Measures DVT/VTE Risk/Contraindication: Risk Factor Score Per Nursin RFS Level Per Nursing on Admit: 4+=Very High CRISS FOSTER MD Aug 08, 2017 08:45
[2017-08-08] MEDS: RT-ALBUTEROL/IPRATROPIUM 3 ML (DUONEB) VIAL INH SCH ×2 (08:50→19:30)
--- NOTE | 2017-08-08 10:16 | Physical Therapy Daily Note ---
PT Daily Note-Current Subjective Patient is very agreeable to participate with PT. Pain Numeric Pain Scale: 0-No Pain Location: No Pain Reported Mental Status Patient Orientation: Normal For Age Attachments: Kohler Catheter Transfers Functional [place] Measure 0=Not Assessed/NA 4=Minimal Assistance 1=Total Assistance 5=Supervision or Setup 2=Maximal Assistance 6=Modified [place] 3=Moderate Assistance 7=Complete IndependenceIRFPAI Quality Coding Scale 6 Independent with activity with or without an assistive device 5 Patient requires set up or clean up by helper. Patient completes activity by themselves 4 Supervision or touching assist (CGA). [place] provide cues , steadying assist 3 The helper provides less than half the effort to complete the activity 2 The helper provides more than half the effort to complete the activity 1 Dependent. The helper does all the effort to complete an activity 7 Patient refused to complete or attempt activity 9 The patient did not perform the activity before the current illness or injury 88 Not attempted due to Medical conditions or safety concerns Transfers (B, C, W/C) (FIM): 6 Scootin Rollin Supine to/from Sit: 6 Sit to/from Stand: 6 Weight Bearing Right Lower Extremity: Right Full Weight Bearing Left Lower Extremity: Left Full Weight Bearing Gait Training Gait (FIM): 6 Distance (FIM): 3=150 ft Distance: 300' Gait Level of Assist: 6 Gait Assistive Device: FWW safe and functional with FWW; PT educated and encouraged patient and spouse to ambulate PRN in hallway. RN present and agrees with plan. Exercises reviewed exercise program and both spouse and patient agree to perform these independently 2-3/day. Assessment Current Status: Excellent Progress Patient is highly motivated with progress and agrees to plan. PT [facility] Goals Radar Scientist Goals PT Radar Scientist Goals Time Frame: Aug 15, 2017 Transfers (B,C,W/C) (FIM): 6 Gait (FIM): 6 Gait distance (FIM): 3=150 ft Distance: 200' Gait Level of Assist: 6 Gait Assistive Device: FWW PT Plan Treatment/Plan Treatment Plan: Continue Plan of Care Treatment Plan: Bed Mobility, Education, Functional Activity Jennifer, Functional Strength, Gait, Safety, Therapeutic Exercise, Transfers Treatment Duration: Aug 15, 2017 Frequency: 6 times per week Estimated Hrs Per Day: .25 hour per day Patient and/or Family Agrees t: Yes Time/GCodes Time In: 815 Time Out: 839 Total Billed Treatment Time: 24 Total Billed Treatment 1 visit FA x 2 24 min STANISLAV BARR PT Aug 08, 2017 10:16
--- NOTE | 2017-08-08 11:42 | Progress Note (SOAP) ---
Subjective Date Seen by Provider: Aug 08, 2017 Time Seen by Provider: 11:15 Subjective/Events-last exam Patient reports doing well. No N/V. No fever/Chills. Tolerating diet and ambulating. Had 2 cardiac events last night. Denies any wound pain except with dressing changes. Review of Systems General: No Chills, No Night Sweats Gastrointestinal: No: Nausea, Vomiting, Abdominal Pain Objective Exam Vital Signs Date Time Temp Pulse Resp B/P (MAP) Pulse Ox O2 Delivery O2 Flow Rate FiO2 08/08/17 08:50 92 Room Air 08/08/17 08:00 98.4 84 18 175/79 95 Nasal Cannula 2.00 08/08/17 07:00 84 08/08/17 04:00 96.9 97 16 166/74 95 Nasal Cannula 2.00 08/08/17 01:00 86 08/08/17 00:00 98.2 75 17 153/83 96 Nasal Cannula 2.00 08/07/17 21:12 102 153/77 08/07/17 21:07 146 156/67 08/07/17 21:05 75 142/63 08/07/17 21:03 149 146/82 08/07/17 21:00 Room Air 08/07/17 21:00 149 146/81 08/07/17 20:45 98.0 148 24 141/72 97 Room Air 08/07/17 20:42 149 141/72 08/07/17 20:40 149 150/81 08/07/17 20:36 149 160/84 08/07/17 20:18 92 Room Air 08/07/17 19:00 107 08/07/17 16:40 98.4 77 22 153/71 92 Room Air 08/07/17 14:46 Room Air 08/07/17 14:45 97.1 79 20 159/81 93 Room Air 08/07/17 13:00 75 08/07/17 12:35 70 15 129/78 90 Room Air 08/07/17 12:00 98.2 Room Air 08/07/17 12:00 Room Air Capillary Refill : Less Than 3 Seconds General Appearance: No Apparent Distress, WD/WN HEENT: PERRL/EOMI Neck: Full Range of Motion, Non Tender, Supple, Other (Left neck wound with granulation bed.) Respiratory: Lungs Clear, No Accessory Muscle Use, No Respiratory Distress Cardiovascular: Regular Rate, Rhythm Gastrointestinal: normal bowel sounds, non tender, soft Extremity: Normal Capillary Refill, Normal Inspection, Normal Range of Motion, Non Tender, No Calf Tenderness, No Pedal Edema Neurologic/Psychiatric: Alert, Oriented x3 Skin: Normal Color, Warm/Dry Results Lab Laboratory Tests 08/08/17 06:00: White Blood Count 8.1, Red Blood Count 4.20L, Hemoglobin 13.2L, Hematocrit 39L, Mean Corpuscular Volume 94, Mean Corpuscular Hemoglobin 31, Mean Corpuscular Hemoglobin Concent 34, Red Cell Distribution Width 13.1, Platelet Count 313, Mean Platelet Volume 9.8, Neutrophils (%) (Auto) 66, Lymphocytes (%) (Auto) 15, Monocytes (%) (Auto) 13H, Eosinophils (%) (Auto) 5, Basophils (%) (Auto) 1, Neutrophils # (Auto) 5.4, Lymphocytes # (Auto) 1.2, Monocytes # (Auto) 1.1H, Eosinophils # (Auto) 0.4H, Basophils # (Auto) 0.1, Sodium Level 137, Potassium Level 3.5L, Chloride Level 105, Carbon Dioxide Level 21, Anion Gap 11, Blood Urea Nitrogen 6L, Creatinine 0.60, Estimat Glomerular Filtration Rate > 60, BUN/ Creatinine Ratio 10, Glucose Level 103, Calcium Level 8.4L, Total Bilirubin 0.7 , Aspartate Amino Transf (AST/SGOT) 54H, Alanine Aminotransferase (ALT/SGPT) 74H , Alkaline Phosphatase 82, B-Type Natriuretic Peptide 792.5H, Total Protein 5.5L , Albumin 2.9L Microbiology 08/04/17 Blood Culture - Preliminary, Resulted No growth 08/05/17 Gram Stain - Final, Resulted 08/05/17 Wound Culture - Preliminary, Resulted Streptococcus Viridans Staph, Coag Neg (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 Continue with regular diet. continue iv abx. May DC home with augmentin when ok with medical and cardiology. Clinical Quality Measures DVT/VTE Risk/Contraindication: Risk Factor Score Per Nursin RFS Level Per Nursing on Admit: 4+=Very High [employer] Aug 08, 2017 11:42
[2017-08-08 12:00] VITALS: BP 162/54
[2017-08-08 16:59] VITALS: BP 157/83
[2017-08-08 20:59] VITALS: BP 169/79
[2017-08-08] MEDS: LOPERAMIDE 2 MG (IMODIUM) CAP PO PRN (21:15)
[2017-08-08] MEDS: ATORVASTATIN 40 MG (LIPITOR) TABLET PO SCH (21:15)
--- NOTE | 2017-08-08 21:57 | Cardiology Progress Note ---
Cardiology SOAP Progress Note Subjective: No cardiac symptoms Objective: I&O/Vital Signs Vital Sign - Last 12Hours 08/08/17 08/08/17 08/08/17 08/08/17 12:00 13:00 16:00 16:59 Temp 98.6 99.1 Pulse 76 72 83 Resp 18 24 B/P (MAP) 162/54 157/83 Pulse Ox 98 93 O2 Delivery Nasal Cannula Room Air Room Air O2 Flow Rate 2.00 08/08/17 19:00 Pulse 86 Intake and Output 08/09/17 00:00 Intake Total 874 ml Output Total 2250 ml Balance -1376 ml Weight (Pounds): 152 Weight (Ounces): 10.0 Weight (Calculated Kilograms): 69.890812 Constitutional: No appears stated age, No AAO x 3, No apparent distress, No PERRL, No well-developed, No well-nourished, No other Respiratory: No accessory muscle use, No respiratory distress, No chest tender , No chest expansion is symmetric, No chest is bilaterally symmetric, No lungs clear to percussion, No lungs clear to auscultation, No crackles, No rhonchi, No rales, No stridor, No wheezing, No pleural rub, No other Cardiovascular: irregularly irregular, tachycardia, S1 and S2 Gastrointestional: No tender, No soft, No round, No distended, No pulsatile mass, No organomegaly, No guarding, No rebound, No tenderness, No hernia, No mass, No audible bowel sounds, No abnormal bowel sounds, No abdominal bruits, No spleenomegaly, No other Extremities: No normal range of motion, No non-tender, No normal inspection, No pedal edema, No calf tenderness, No normal capillary refill, No pelvis stable , No calf tenderness, No inflammation, No pedal edema, No slow capillary refill , No swelling, No other, No abrasion, No clubbing, No cyanosis, No ecchymosis, No laceration, No no lower extremity edema bilateral, No significant edema, No tenderness, No wound Neurologic/Psychiatric: No criminal legal assistant II-XII nml as tested, No no motor/sensory deficits, No alert, No normal mood/affect, No oriented x 3, No abnormal cerebellar tests, No abnormal criminal legal assistant II-XII, No abnormal gait, No aphasia, No EOM palsy, No facial droop, No motor weakness, No sensory deficit, No depressed affect, No disoriented x 3, No other, No grossly intact, No power is 5/5 both on sides Skin: No normal color, No warm/dry, No cyanosis, No cool, No diaphoresis, No damp, No ecchymosis, No jaundice, No mottled, No pallor, No rash, No tattoos/ piercings, No ulcerations, No rash on exposed areas, No ulcerations on exposed areas, No other Results/Procedures: Labs Laboratory Tests 08/08/17 06:00: White Blood Count 8.1, Red Blood Count 4.20L, Hemoglobin 13.2L, Hematocrit 39L, Mean Corpuscular Volume 94, Mean Corpuscular Hemoglobin 31, Mean Corpuscular Hemoglobin Concent 34, Red Cell Distribution Width 13.1, Platelet Count 313, Mean Platelet Volume 9.8, Neutrophils (%) (Auto) 66, Lymphocytes (%) (Auto) 15, Monocytes (%) (Auto) 13H, Eosinophils (%) (Auto) 5, Basophils (%) (Auto) 1, Neutrophils # (Auto) 5.4, Lymphocytes # (Auto) 1.2, Monocytes # (Auto) 1.1H, Eosinophils # (Auto) 0.4H, Basophils # (Auto) 0.1, Sodium Level 137, Potassium Level 3.5L, Chloride Level 105, Carbon Dioxide Level 21, Anion Gap 11, Blood Urea Nitrogen 6L, Creatinine 0.60, Estimat Glomerular Filtration Rate > 60, BUN/ Creatinine Ratio 10, Glucose Level 103, Calcium Level 8.4L, Total Bilirubin 0.7 , Aspartate Amino Transf (AST/SGOT) 54H, Alanine Aminotransferase (ALT/SGPT) 74H , Alkaline Phosphatase 82, B-Type Natriuretic Peptide 792.5H, Total Protein 5.5L , Albumin 2.9L Microbiology 08/04/17 Blood Culture - Preliminary, Resulted No growth 08/05/17 Gram Stain - Final, Resulted 08/05/17 Wound Culture - Preliminary, Resulted Streptococcus Viridans Staph, Coag Neg (Waistband Setter Lockstitch) A/P: Assessment/Dx: Atrial flutter with rapid ventricular response Sepsis Pneumonia Hypertension Hyperlipidemia Plan: 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 Recent esophageal surgery. Currently on Eliquis Patient is at elevated risk of stroke with a history of stroke (confirmed on MRI head; 06/2016) as well and CHADSVASC score of 6. Transesophageal echocardiogram and cardioversion is contraindicated due to recent esophageal surgery. continue metoprolol, digoxin. Calcium channel lalita. Heart rate much better controlled. Will not recommend antiarrhythmic therapy at this point in time. patient has sepsis and is on broad-spectrum antibiotics. Source of infection is likely a neck abscess. once his infection resolves, atrial fibrillation should be better controlled. Thank you for your consultation. Please call me if you have any questions. Itz Nuñez MD, FACP, FACC, FSCAI, FHRS, CCDS Interventional Cardiology Cardiac Electrophysiology Vascular Medicine and Endovascular Interventions Lise NUÑEZ MD Aug 08, 2017 9:57 pm
[2017-08-09 00:48] VITALS: BP 161/78
[2017-08-09] MEDS: LOPERAMIDE 2 MG (IMODIUM) CAP PO PRN (02:16)
[2017-08-09 04:30] VITALS: BP 152/78
[2017-08-09] MEDS: CLINDAMYCIN INJECTION 600 MG in NS (IVPB) 50 ML IV SCH ×3 (06:17→20:57)
[2017-08-09] MEDS: DILTIAZEM 60 MG (CARDIZEM) TAB PO SCH ×3 (06:21→18:14)
[2017-08-09 06:39] LABS: MEAN PLATELET VOLUME 9.1 FL (7.4-10.4); RED BLOOD COUNT 3.96 10^6/uL (4.35-5.85); RED CELL DISTRIBUTION WIDTH 12.8 % (10.0-14.5)
[2017-08-09 07:02] LABS: ALANINE AMINOTRANSFERASE 63 U/L (0-55); ALBUMIN 3.2 GM/DL (3.2-4.5); ANION GAP 11 MMOL/L (5-14); ASPARTATE AMINO TRANSFERASE 38 U/L (5-34); BILIRUBIN,TOTAL 0.7 MG/DL (0.1-1.0); BLOOD UREA NITROGEN 6 MG/DL (7-18); BUN/CREATININE RATIO 9; CALCIUM 8.8 MG/DL (8.5-10.1); CARBON DIOXIDE 25 MMOL/L (21-32); CHLORIDE 102 MMOL/L (98-107); GFR ESTIMATED > 60; GLUCOSE 93 MG/DL (70-105); MAGNESIUM 1.5 MG/DL (1.8-2.4); POTASSIUM 3.4 MMOL/L (3.6-5.0); SODIUM 138 MMOL/L (135-145)
[2017-08-09 07:08] LABS: DIGOXIN 1.06 NG/ML (0.80-2.00)
[2017-08-09 08:00] VITALS: BP 176/81
[2017-08-09] MEDS: PIPERACILLIN SODIUM/TAZOBACTAM 4.5 GM in NS (IVPB) 100 ML IV SCH ×2 (08:12→15:59)
[2017-08-09] MEDS: APIXABAN 5 MG (ELIQUIS) TABLET PO SCH ×2 (08:15→20:57)
[2017-08-09] MEDS: FAMOTIDINE 20 MG (PEPCID) TABLET PO SCH (08:15)
[2017-08-09] MEDS: DIGOXIN 0.25 MG (LANOXIN) TAB PO SCH (08:15)
[2017-08-09] MEDS: meTOproloL SUCCINATE 50 MG (TOPROL XL) TAB PO SCH (08:15)
[2017-08-09] MEDS: LOSARTAN 50 MG (COZAAR) TAB PO SCH (08:15)
[2017-08-09] MEDS: ASPIRIN 81 MG CHEW (CHILDREN'S ASA) PO SCH (08:15)
[2017-08-09] MEDS: RT-ALBUTEROL/IPRATROPIUM 3 ML (DUONEB) VIAL INH SCH ×2 (09:01→21:12)
--- NOTE | 2017-08-09 09:33 | Physical Therapy Progress Note ---
Therapy Progress Note Pt up in chair. Reports he just got settle after going to the bathroom. Declined to participate with PT but states he will walk with spouse in a bit. JACKIE SANDERS DPT Aug 09, 2017 09:33
--- NOTE | 2017-08-09 09:45 | Diagnostic Imaging Report ---
INDICATION: Pneumonia and cough. COMPARISON: 08/08/17. FINDINGS: Improving but persistent bilateral perihilar and basilar heterogeneous opacities. No pleural effusion or pneumothorax. Normal heart size. Decreased pulmonary vascular markings in the lung apices are likely due to emphysema. Atherosclerotic aorta is unchanged. IMPRESSION: 1. Improving but persistent pulmonary opacities likely due to resolving pneumonia. Dictated by: Dictated on workstation # [id number]
[2017-08-09] MEDS: LACTOBACILLUS Acidoph/Bulgar (LACTINEX/FLORANEX) TAB PO SCH ×2 (11:58→15:58)
[2017-08-09] MEDS: amLODIPine 5 MG (NORVASC) TAB PO SCH (11:58)
[2017-08-09 12:00] VITALS: BP 170/76
--- NOTE | 2017-08-09 13:12 | Cardiology Progress Note ---
Cardiology SOAP Progress Note Subjective: No cardiac complaints Objective: I&O/Vital Signs Vital Sign - Last 12Hours 08/09/17 08/09/17 08/09/17 08/09/17 04:30 07:00 08:00 09:01 Temp 98.6 98.0 Pulse 83 71 72 Resp 18 16 B/P (MAP) 152/78 176/81 Pulse Ox 92 92 94 O2 Delivery Nasal Cannula Nasal Cannula Room Air O2 Flow Rate 2.00 2.00 Weight (Pounds): 146 Weight (Ounces): 5.0 Weight (Calculated Kilograms): 66.875378 Constitutional: No appears stated age, No AAO x 3, No apparent distress, No PERRL, No well-developed, No well-nourished, No other Respiratory: No accessory muscle use, No respiratory distress, No chest tender , No chest expansion is symmetric, No chest is bilaterally symmetric, No lungs clear to percussion, No lungs clear to auscultation, No crackles, No rhonchi, No rales, No stridor, No wheezing, No pleural rub, No other Cardiovascular: irregularly irregular, tachycardia, S1 and S2 Gastrointestional: No tender, No soft, No round, No distended, No pulsatile mass, No organomegaly, No guarding, No rebound, No tenderness, No hernia, No mass, No audible bowel sounds, No abnormal bowel sounds, No abdominal bruits, No spleenomegaly, No other Extremities: No normal range of motion, No non-tender, No normal inspection, No pedal edema, No calf tenderness, No normal capillary refill, No pelvis stable , No calf tenderness, No inflammation, No pedal edema, No slow capillary refill , No swelling, No other, No abrasion, No clubbing, No cyanosis, No ecchymosis, No laceration, No no lower extremity edema bilateral, No significant edema, No tenderness, No wound Neurologic/Psychiatric: No salesperson parts II-XII nml as tested, No no motor/sensory deficits, No alert, No normal mood/affect, No oriented x 3, No abnormal cerebellar tests, No abnormal salesperson parts II-XII, No abnormal gait, No aphasia, No EOM palsy, No facial droop, No motor weakness, No sensory deficit, No depressed affect, No disoriented x 3, No other, No grossly intact, No power is 5/5 both on sides Skin: No normal color, No warm/dry, No cyanosis, No cool, No diaphoresis, No damp, No ecchymosis, No jaundice, No mottled, No pallor, No rash, No tattoos/ piercings, No ulcerations, No rash on exposed areas, No ulcerations on exposed areas, No other Results/Procedures: Labs Laboratory Tests 08/09/17 06:28: White Blood Count 9.0, Red Blood Count 3.96L, Hemoglobin 12.4L, Hematocrit 37L, Mean Corpuscular Volume 92, Mean Corpuscular Hemoglobin 31, Mean Corpuscular Hemoglobin Concent 34, Red Cell Distribution Width 12.8, Platelet Count 295, Mean Platelet Volume 9.1, Sodium Level 138, Potassium Level 3.4L, Chloride Level 102, Carbon Dioxide Level 25, Anion Gap 11, Blood Urea Nitrogen 6L, Creatinine 0.70, Estimat Glomerular Filtration Rate > 60, BUN/Creatinine Ratio 9 , Glucose Level 93, Calcium Level 8.8, Magnesium Level 1.5L, Total Bilirubin 0.7 , Aspartate Amino Transf (AST/SGOT) 38H, Alanine Aminotransferase (ALT/SGPT) 63H , Alkaline Phosphatase 92, B-Type Natriuretic Peptide 509.7H, Total Protein 6.0L , Albumin 3.2, Digoxin Level 1.06 Microbiology 08/04/17 Blood Culture - Preliminary, Resulted No growth 08/05/17 Gram Stain - Final, Resulted 08/05/17 Wound Culture - Preliminary, Resulted Streptococcus Viridans Staph, Coag Neg (Rock Star) A/P: Assessment/Dx: Atrial flutter with rapid ventricular response Sepsis Pneumonia Hypertension Hyperlipidemia Plan: 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 Recent esophageal surgery. Currently on Eliquis Patient is at elevated risk of stroke with a history of stroke (confirmed on MRI head; 06/2016) as well and CHADSVASC score of 6. Transesophageal echocardiogram and cardioversion is contraindicated due to recent esophageal surgery. continue metoprolol, digoxin. Calcium channel lalita. Heart rate much better controlled. Will not recommend antiarrhythmic therapy at this point in time. patient has sepsis and is on broad-spectrum antibiotics. Source of infection is likely a neck abscess. once his infection resolves, atrial fibrillation should be better controlled. Thank you for your consultation. Please call me if you have any questions. Itz Nuñez MD, FACP, FACC, FSCAI, FHRS, CCDS Interventional Cardiology Cardiac Electrophysiology Vascular Medicine and Endovascular Interventions Lise NUÑEZ MD Aug 09, 2017 1:12 pm
--- NOTE | 2017-08-09 13:46 | Progress Note-Hospitalist ---
Progress Note Progress Notes/Assess & Plan Date Seen 08/09/17 Time Seen by Provider: 12:30 Diagonsis/Assessment & Plan Chart Review: No fever Vitals stable except BP elevated On Clinda and Zosyn for pneumonia and left Zenker's Diverticulectomy 07/24/17 Will initiate Norvasc CXR today shows improving pneumonia WBC 9.0 Hgb 12.4 CMP good except K+ 3.4 BNP 509 Strep viridans on wound cx Patient Interview: Pt states he is feeling tired and did not sleep well. Pt denies taking sleep meds at home CXR looks good and this was discussed. was assured that the pneumonia will take some time to clear on a CXR, but it will happen eventually Pt states he is getting up very well Pt states that Dr. Howe did not say when he would DC Labs look fine and this was discussed Pt denies experiencing pain, except from the diarrhea. Pt confirms having Imodium given. I informed the pt that I will order a probiotic and it was suggested that he eat some yogurt Physical exam stable. Lungs sound perfect AFVSS, Pleasant, O x 3, at bedside Irr Irr, CTAB diminished in bases Left neck wound with dressing in place No edema Assessment: AF w/RVR now rate controlled Pneumonia Left neck deep seated abscess s/p Zenker's diverticulectomy 07/24/17 Diarrhea likely abx-associated Plan: Probiotic - Lactinex Yogurt AM labs Abx Scribed by Liset Costa under the direct supervision of Dr. Harrison. MARY HARRISON DO Aug 09, 2017 13:46
[2017-08-09 16:14] VITALS: BP 149/73
[2017-08-09 19:31] VITALS: BP 153/71
[2017-08-09] MEDS: ATORVASTATIN 40 MG (LIPITOR) TABLET PO SCH (20:57)
[2017-08-10] VITALS (7 sets, daily range): BP systolic 142–173; BP diastolic 69–81
[2017-08-10] MEDS: PIPERACILLIN SODIUM/TAZOBACTAM 4.5 GM in NS (IVPB) 100 ML IV SCH ×3 (00:16→17:04)
[2017-08-10] MEDS: DILTIAZEM 60 MG (CARDIZEM) TAB PO SCH ×4 (00:16→18:27)
[2017-08-10] MEDS: LACTOBACILLUS Acidoph/Bulgar (LACTINEX/FLORANEX) TAB PO SCH ×3 (05:44→17:03)
[2017-08-10] MEDS: CLINDAMYCIN INJECTION 600 MG in NS (IVPB) 50 ML IV SCH ×3 (05:44→21:56)
[2017-08-10 06:12] LABS: BASOPHILS # (AUTO) 0.1 10^3/uL (0.0-0.1); BASOPHILS % (AUTO) 1 % (0-10); EOSINOPHILS # (AUTO) 0.6 10^3/uL (0.0-0.3); EOSINOPHILS % (AUTO) 6 % (0-10); LYMPHOCYTES # (AUTO) 1.4 X 10^3 (1.0-4.0); LYMPHOCYTES % (AUTO) 15 % (12-44); MEAN CORPUSCULAR HEMOGLOBIN 31 PG (25-34); MEAN CORPUSCULAR HGB CONC 34 G/DL (32-36); MEAN CORPUSCULAR VOLUME 92 FL (80-99); MEAN PLATELET VOLUME 9.5 FL (7.4-10.4); MONOCYTES # (AUTO) 1.3 X 10^3 (0.0-1.0); MONOCYTES % (AUTO) 14 % (0-12); NEUTROPHILS # (AUTO) 6.3 X 10^3 (1.8-7.8); NEUTROPHILS % (AUTO) 65 % (42-75); PLATELET COUNT 392 10^3/uL (130-400); RED BLOOD COUNT 4.49 10^6/uL (4.35-5.85); WHITE BLOOD COUNT 9.6 10^3/uL (4.3-11.0)
[2017-08-10 06:42] LABS: ALANINE AMINOTRANSFERASE 49 U/L (0-55); ALBUMIN 3.3 GM/DL (3.2-4.5); ANION GAP 11 MMOL/L (5-14); ASPARTATE AMINO TRANSFERASE 26 U/L (5-34); BILIRUBIN,TOTAL 0.6 MG/DL (0.1-1.0); BLOOD UREA NITROGEN 6 MG/DL (7-18); BUN/CREATININE RATIO 8; CALCIUM 9.2 MG/DL (8.5-10.1); CARBON DIOXIDE 24 MMOL/L (21-32); CHLORIDE 103 MMOL/L (98-107); CREATININE SERUM 0.77 MG/DL (0.60-1.30); GFR ESTIMATED > 60; GLUCOSE 101 MG/DL (70-105); POTASSIUM 3.5 MMOL/L (3.6-5.0); SODIUM 138 MMOL/L (135-145); TOTAL PROTEIN 5.9 GM/DL (6.4-8.2)
[2017-08-10] MEDS: RT-ALBUTEROL/IPRATROPIUM 3 ML (DUONEB) VIAL INH SCH ×2 (07:17→20:43)
[2017-08-10] MEDS: ASPIRIN 81 MG CHEW (CHILDREN'S ASA) PO SCH (08:40)
[2017-08-10] MEDS: LOSARTAN 50 MG (COZAAR) TAB PO SCH (08:41)
[2017-08-10] MEDS: FAMOTIDINE 20 MG (PEPCID) TABLET PO SCH (08:41)
[2017-08-10] MEDS: meTOproloL SUCCINATE 50 MG (TOPROL XL) TAB PO SCH (08:41)
[2017-08-10] MEDS: DIGOXIN 0.25 MG (LANOXIN) TAB PO SCH (08:41)
[2017-08-10] MEDS: amLODIPine 5 MG (NORVASC) TAB PO SCH (08:41)
[2017-08-10] MEDS: APIXABAN 5 MG (ELIQUIS) TABLET PO SCH ×2 (08:41→20:39)
[2017-08-10] MEDS ORDERED: KCL 20 MEQ TAB (K-DUR) PO ONE (11:15)
--- NOTE | 2017-08-10 13:08 | Progress Note-Hospitalist ---
Progress Note Progress Notes/Assess & Plan Date Seen 08/10/17 Time Seen by Provider: 00:00 Diagonsis/Assessment & Plan Chart Review: No fever Vitals stable except BP continues to be elevated Reviewed meds on DEC WBC 9.6 Hgb 14 CMP normal except K+ 3.5, will supplement Patient Interview: Pt states that he has nothing new to report Pt states he is breathing well and receiving breathing treatments K+ supplementation is needed and this was discussed Physical exam stable. Lungs sound perfect Pt denies seeing the surgeon for a few days. Abx discussed. Pt states his RN packed the wound the past few days and she said it looks good Pt was informed that Dr. Howe will return tomorrow to resume care. Pt confirms having BMs states he looks a bit weak when trying to ambulate. Pt states he gets up 3- 4 times to ambulate Chart Review: No fever MARY LAMBERT DO Aug 10, 2017 13:08
--- NOTE | 2017-08-10 13:17 | Progress Note-Hospitalist ---
Progress Note Progress Notes/Assess & Plan Date Seen 08/10/17 Time Seen by Provider: 12:13 Diagonsis/Assessment & Plan Chart Review: No fever Vitals stable except BP continues to be elevated Reviewed meds on DEC WBC 9.6 Hgb 14 CMP normal except K+ 3.5, will supplement Patient Interview: Pt states that he has nothing new to report Pt states he is breathing well and receiving breathing treatments K+ supplementation is needed and this was discussed Physical exam stable. Lungs sound perfect Pt denies seeing the surgeon for a few days. Abx discussed. Pt states his RN packed the wound the past few days and she said it looks good Pt was informed that Dr. Howe will return tomorrow to resume care. Pt confirms having BMs states he looks a bit weak when trying to ambulate. Pt states he gets up 3- 4 times to ambulate AFVSS, Pleasant, O x 3, at bedside Irr Irr, CTAB diminished in bases Left neck wound with dressing in place No edema Assessment: AF w/RVR now rate controlled Pneumonia Left neck deep seated abscess s/p Zenker's diverticulectomy 07/24/17 Diarrhea likely abx-associated placed on Probiotic yesterday HTN OOC COPD Plan: Probiotic - Lactinex Yogurt AM labs Abx K+ Ambulate Scribed by Liset Costa under the direct supervision of Dr. Harrison. MARY HARRISON DO Aug 10, 2017 13:17
[2017-08-10] MEDS: ATORVASTATIN 40 MG (LIPITOR) TABLET PO SCH (20:39)
[2017-08-11] MEDS: DILTIAZEM 60 MG (CARDIZEM) TAB PO SCH ×3 (00:07→11:30)
[2017-08-11] MEDS: PIPERACILLIN SODIUM/TAZOBACTAM 4.5 GM in NS (IVPB) 100 ML IV SCH ×2 (00:07→09:35)
[2017-08-11 00:17] VITALS: BP 160/78
[2017-08-11 04:00] VITALS: BP 156/72
[2017-08-11] MEDS: LACTOBACILLUS Acidoph/Bulgar (LACTINEX/FLORANEX) TAB PO SCH ×2 (05:32→11:30)
[2017-08-11] MEDS: CLINDAMYCIN INJECTION 600 MG in NS (IVPB) 50 ML IV SCH ×2 (05:33→13:37)
[2017-08-11 06:03] LABS: BASOPHILS # (AUTO) 0.1 10^3/uL (0.0-0.1); BASOPHILS % (AUTO) 1 % (0-10); EOSINOPHILS # (AUTO) 0.6 10^3/uL (0.0-0.3); EOSINOPHILS % (AUTO) 7 % (0-10); LYMPHOCYTES # (AUTO) 1.6 X 10^3 (1.0-4.0); LYMPHOCYTES % (AUTO) 18 % (12-44); MEAN CORPUSCULAR HEMOGLOBIN 31 PG (25-34); MEAN CORPUSCULAR HGB CONC 34 G/DL (32-36); MEAN CORPUSCULAR VOLUME 93 FL (80-99); MEAN PLATELET VOLUME 9.5 FL (7.4-10.4); MONOCYTES # (AUTO) 1.1 X 10^3 (0.0-1.0); MONOCYTES % (AUTO) 12 % (0-12); NEUTROPHILS # (AUTO) 5.7 X 10^3 (1.8-7.8); NEUTROPHILS % (AUTO) 62 % (42-75); PLATELET COUNT 372 10^3/uL (130-400); RED BLOOD COUNT 4.37 10^6/uL (4.35-5.85); RED CELL DISTRIBUTION WIDTH 13.1 % (10.0-14.5); WHITE BLOOD COUNT 9.2 10^3/uL (4.3-11.0)
[2017-08-11 06:20] LABS: ALANINE AMINOTRANSFERASE 40 U/L (0-55); ALBUMIN 3.1 GM/DL (3.2-4.5); ANION GAP 10 MMOL/L (5-14); ASPARTATE AMINO TRANSFERASE 25 U/L (5-34); BILIRUBIN,TOTAL 0.6 MG/DL (0.1-1.0); BLOOD UREA NITROGEN 6 MG/DL (7-18); BUN/CREATININE RATIO 9; CALCIUM 8.8 MG/DL (8.5-10.1); CARBON DIOXIDE 22 MMOL/L (21-32); CHLORIDE 105 MMOL/L (98-107); GFR ESTIMATED > 60; GLUCOSE 96 MG/DL (70-105); POTASSIUM 3.4 MMOL/L (3.6-5.0); SODIUM 137 MMOL/L (135-145)
--- NOTE | 2017-08-11 07:39 | Progress Note (SOAP) ---
Subjective Time Seen by Provider: 07:30 Subjective/Events-last exam Patient feeling better today. Neck abscess is improving. Pneumonia getting better. A. fib with RVR. Hyponatremia. Patient to be discharged today. Objective Exam Vital Signs Date Time Temp Pulse Resp B/P (MAP) Pulse Ox O2 Delivery O2 Flow Rate FiO2 08/11/17 04:00 98.0 67 18 156/72 93 Room Air 08/11/17 01:00 66 08/11/17 00:17 98.9 66 18 160/78 93 Room Air 08/10/17 20:43 93 Room Air 08/10/17 20:00 Room Air 08/10/17 19:37 98.4 69 18 156/69 96 Room Air 08/10/17 19:00 67 08/10/17 16:27 97.8 64 18 152/73 93 Room Air 08/10/17 12:55 73 08/10/17 12:00 98.0 68 18 142/71 93 Nasal Cannula 2.00 08/10/17 09:00 Room Air 08/10/17 08:00 97.8 73 20 154/72 90 Nasal Cannula 2.00 Capillary Refill : Less Than 3 Seconds General Appearance: No Apparent Distress, Thin Results Lab Laboratory Tests 08/11/17 05:55: White Blood Count 9.2, Red Blood Count 4.37, Hemoglobin 13.6, Hematocrit 41, Mean Corpuscular Volume 93, Mean Corpuscular Hemoglobin 31, Mean Corpuscular Hemoglobin Concent 34, Red Cell Distribution Width 13.1, Platelet Count 372, Mean Platelet Volume 9.5, Neutrophils (%) (Auto) 62, Lymphocytes (%) (Auto) 18, Monocytes (%) (Auto) 12, Eosinophils (%) (Auto) 7, Basophils (%) (Auto) 1, Neutrophils # (Auto) 5.7, Lymphocytes # (Auto) 1.6, Monocytes # (Auto) 1.1H, Eosinophils # (Auto) 0.6H, Basophils # (Auto) 0.1, Sodium Level 137, Potassium Level 3.4L, Chloride Level 105, Carbon Dioxide Level 22, Anion Gap 10, Blood Urea Nitrogen 6L, Creatinine 0.70, Estimat Glomerular Filtration Rate > 60, BUN/ Creatinine Ratio 9, Glucose Level 96, Calcium Level 8.8, Total Bilirubin 0.6, Aspartate Amino Transf (AST/SGOT) 25, Alanine Aminotransferase (ALT/SGPT) 40, Alkaline Phosphatase 80, Total Protein 6.0L, Albumin 3.1L Microbiology 08/04/17 Blood Culture - Final, Complete No growth 08/05/17 Gram Stain - Final, Complete 08/05/17 Wound Culture - Final, Complete Streptococcus Viridans Staph, Coag Neg (Spinning Frame Fixer) Assessment/Plan Assessment/Plan Assess & Plan/Chief Complaint pneumonia. Abscess neck. Atrial fibrillation. Recent Zenker's diverticulum surgery. Patient feeling better is hungry. . 08/07/17. Pneumonia x-ray not read yet this morning. Abscess neck doing better. Apical rate under control. Elevated liver enzymes we'll monitor. Recent centers for diverticular surgery. Patient taking fluids very Coronary artery disease. . . Pneumonia. Neck Says. Atrial flutter with RVR. Recent Zenker's diverticulum surgery. Patient doing better. Patient's heart rate went to quick 2 times last night and got short of breath. Patient still a little unsteady on feet. . 08/11/17. Patient doing better. Patient be discharged today. Pneumonia. Neck Status. Recent Zenker's diverticulum surgery. Atrial flutter with RVR. Hypertension. Hypokalemia Clinical Quality Measures DVT/VTE Risk/Contraindication: Risk Factor Score Per Nursin RFS Level Per Nursing on Admit: 4+=Very High ALBARO BRADFORD DO Aug 11, 2017 07:39
--- NOTE | 2017-08-11 07:52 | D/C HH Face to Face Order ---
D/C Face to Face Orders Instructions for Patient Patient Instructions/FollowUp: 2 office next at [address] ZHANG. Appointment with Dr. Bravo. To have a walker with seat. Patient have physical therapy. Patient have wound care Physician to follow Patient: Physician.Surgeon.Psychiatric Nursing Assistant Discharge Diet for Home: Cardiac Diet Patient Data-Allergies,Ht & Wt Patient Allergies: Coded Allergies: No Known Drug Allergies (Verified , 08/04/17) Height (Feet): 5 Height (Inches): 7.00 Weight (Pounds): 135 Weight (Ounces): 2.0 Home Health Need/Face to Face Date of Face to Face: Aug 11, 2017 Clinical Findings: Generalized weakness and fatigue, Unsteady gait, Wound infection I have seen Pt [id number]: Yes Discharged To: Home Diagnosis/Conditions: Neck abscess. A. fib flutter with RVR. Hypertension. Problems/Diagnosis/Condition: Patient is Homebound due to: João fall risk due to instabilty Neck abscess Homebound Status Due to the above stated illness, injury or surgical procedure (medical condition or diagnosis) and associated clinical findings, the patient is homebound because of his/her inability to leave home except with aid of a supportive device and/or person AND leaving the home requires a considerable and taxing effort or is medically contraindicated. Pt req the following assistanc: Walker (Walker with a seat) Home Health Infusion Therapy Line Start Date: Aug 04, 2017 Line Start Time: 1854 Site Location: Forearm Certify Stmt I certify that this patient is under my care and that I, a nurse practitioner or a physician; a hardware sales assistant working with me, had a face to face encounter that - meets the physician face to face encounter requirements with this patient as dated. ALBARO BRADFORD DO Aug 11, 2017 07:52
[2017-08-11 08:00] VITALS: BP 156/74
--- NOTE | 2017-08-11 08:46 | Cardiology Progress Note ---
Subjective Date Seen by Provider: Aug 11, 2017 Time Seen by Provider: 08:44 Subjective/Events-last exam Patient sitting up in chair. Being discharged home today. Denies any CP or dyspnea. Objective-Cardiology Exam Last Set of Vital Signs Vital Signs 08/10/17 08/11/17 12:00 08:00 Temp 98.2 Pulse 69 Resp 20 B/P (MAP) 156/74 Pulse Ox 95 O2 Delivery Room Air O2 Flow Rate 2.00 Capillary Refill : Less Than 3 Seconds I&O Intake and Output 08/12/17 00:00 Intake Total 200 ml Balance 200 ml Intake Oral 100 ml IV Total 100 ml # Voids 6 # Bowel Movements 2 General: Alert, Oriented X3, Cooperative HEENT: Atraumatic, PERRLA Neck: Supple, No JVD, No Thyromegaly Lungs: Clear to Auscultation, Normal Air Movement Heart: Regular Rate, Normal S1, Normal S2, No Murmurs Abdomen: Normal Bowel Sounds, Soft, No Tenderness, No Hepatosplenomegaly, No Masses Extremities: No Clubbing, No Cyanosis, No Edema, Normal Pulses, No Tenderness/ Swelling Skin: No Rashes, No Breakdown, No Significant Lesion Neuro: Normal Speech, Strength at 5/5 X4 Ext, Normal Tone, Sensation Intact Psych/Mental Status: Mental Status NL, Mood NL Results Lab Laboratory Tests 08/11/17 05:55 A/P-Cardiology Admission Diagnosis Atrial flutter with rapid ventricular response Sepsis Pneumonia Hypertension Hyperlipidemia Assessment/Plan Atrial flutter with rapid ventricular response, history of paroxysmal atrial flutter, rate is better controlled, maintained on digoxin and metoprolol and Cardizem. Continue to monitor. [id number] score is 6, yearly risk of stroke without oral anticoagulation is 9.8. Patient is maintained on Eliquis, continue to monitor Sepsis, pneumonia, receiving antibiotics,improving. Managed by primary care physician Alessandra diverticulum, status post surgical repair done on July 24, 2017, abscess postoperatively, status post IND, reporting improvement. Neck abscess- s/p I&D, on antibiotics. Continue to monitor. History of CVA Occurred on 07/18/2016. MRI of the head suggested a stroke. Mild dysphagia postoperatively. Managed by primary care physician History of syncope, patient had tilt table test which revealed severe dizziness and hypotension back in February 2013. had another episode the morning of admission , probably secondary to sepsis and pneumonia Hypertension, blood pressure is controlled, continue to monitor. Hyperlipidemia, continue to monitor lipids Diabetes mellitus, followed and managed by primary care physician. Continue to monitor Bilateral moderate carotid stenosis, 40-59 percent per most recent carotid duplex done July 02, 2016, continue to monitor Ok to discharge from cardiac standpoint. Continue current medications and follow up in Dr. Hobson's office in 1-2 weeks. Clinical Quality Measures DVT/VTE Risk/Contraindication: Risk Factor Score Per Nursin RFS Level Per Nursing on Admit: 4+=Very High CAMELIA KING Aug 11, 2017 08:46
--- NOTE | 2017-08-11 09:21 | Diagnostic Imaging Report ---
PA and lateral views of the chest. COMPARISON: 08/09/17. INDICATION: Pneumonia. FINDINGS: The lungs are hyperinflated. Predominantly interstitial opacities are seen, improved from the previous study with remaining background interstitial scarring noted. The heart size is normal. No effusion or pneumothorax. The mediastinum and bharat appear unremarkable. IMPRESSION: Hyperinflated lungs with interstitial opacities, mostly chronic. Dictated by: Dictated on workstation # [id number]
[2017-08-11] MEDS: ASPIRIN 81 MG CHEW (CHILDREN'S ASA) PO SCH (09:32)
[2017-08-11] MEDS: APIXABAN 5 MG (ELIQUIS) TABLET PO SCH (09:32)
[2017-08-11] MEDS: LOSARTAN 50 MG (COZAAR) TAB PO SCH (09:32)
[2017-08-11] MEDS: meTOproloL SUCCINATE 50 MG (TOPROL XL) TAB PO SCH (09:32)
[2017-08-11] MEDS: DIGOXIN 0.25 MG (LANOXIN) TAB PO SCH (09:32)
[2017-08-11] MEDS: amLODIPine 5 MG (NORVASC) TAB PO SCH (09:32)
[2017-08-11] MEDS: FAMOTIDINE 20 MG (PEPCID) TABLET PO SCH (09:32)
[2017-08-11] MEDS ORDERED: WALK1EAC23 MC (10:18)
[2017-08-11] MEDS ORDERED: DIGO250T15 PO (11:20)
[2017-08-11] MEDS ORDERED: DILT360C36 PO (11:20)
[2017-08-11 12:00] VITALS: BP 170/80
--- NOTE | 2017-08-11 12:03 | Cardiology Progress Note ---
Subjective Date Seen by Provider: Aug 11, 2017 Time Seen by Provider: 12:02 Subjective/Events-last exam Patient is laying down in bed, feeling well, getting ready for discharge, denied any chest pain, heart rate is better controlled. Blood pressure is slightly elevated. Review of Systems General: No Chills, No Night Sweats, No Fatigue, No Malaise, No Appetite, No Other HEENT: No Head Aches, No Visual Changes, No Eye Pain, No Ear Pain, No Dysphasia , No Sinus Congestion, No Post Nasal Drip, No Sore Throat, No Other Pulmonary: No Dyspnea, No Cough, No Pleuritic Chest Pain, No Other Cardiovascular: No: Chest Pain, Palpitations, Orthopnea, Paroxysmal Noc. Dyspnea, Edema, Lt Headedness, Other Objective-Cardiology Exam Last Set of Vital Signs Vital Signs 08/10/17 08/11/17 12:00 08:00 Temp 98.2 Pulse 69 Resp 20 B/P (MAP) 156/74 Pulse Ox 95 O2 Delivery Room Air O2 Flow Rate 2.00 Capillary Refill : Less Than 3 Seconds I&O Intake and Output 08/12/17 00:00 Intake Total 200 ml Balance 200 ml Intake Oral 100 ml IV Total 100 ml # Voids 6 # Bowel Movements 2 General: Alert, Oriented X3, Cooperative HEENT: Atraumatic, PERRLA Neck: Supple, No JVD, No Thyromegaly Lungs: Clear to Auscultation, Normal Air Movement Heart: Normal S1, Normal S2, No Murmurs, Other (Irregular) Abdomen: Normal Bowel Sounds, Soft, No Tenderness, No Hepatosplenomegaly, No Masses Extremities: No Clubbing, No Cyanosis, No Edema, Normal Pulses, No Tenderness/ Swelling Skin: No Rashes, No Breakdown, No Significant Lesion Neuro: Normal Speech, Strength at 5/5 X4 Ext, Normal Tone, Sensation Intact Psych/Mental Status: Mental Status NL, Mood NL Results Lab Laboratory Tests 08/11/17 05:55 A/P-Cardiology Admission Diagnosis Atrial flutter with rapid ventricular response Sepsis Pneumonia Hypertension Hyperlipidemia Assessment/Plan Atrial flutter with rapid ventricular response, history of paroxysmal atrial flutter, rate is better controlled, maintained on digoxin and metoprolol and Cardizem, okay for discharge and follow-up as an outpatient. [id number] score is 6, yearly risk of stroke without oral anticoagulation is 9.8. Patient is maintained on Eliquis, continue to monitor Sepsis, pneumonia, receiving antibiotics,improving. Managed by primary care physician Alessandra diverticulum, status post surgical repair done on July 24, 2017, abscess postoperatively, status post IND, reporting improvement. Neck abscess- s/p I&D, on antibiotics. Continue to monitor. History of CVA Occurred on 07/18/2016. MRI of the head suggested a stroke. Mild dysphagia postoperatively. Managed by primary care physician History of syncope, patient had tilt table test which revealed severe dizziness and hypotension back in February 2013. had another episode the morning of admission , probably secondary to sepsis and pneumonia Hypertension, blood pressure is controlled, continue to monitor. Hyperlipidemia, continue to monitor lipids Diabetes mellitus, followed and managed by primary care physician. Continue to monitor Bilateral moderate carotid stenosis, 40-59 percent per most recent carotid duplex done July 02, 2016, continue to monitor Clinical Quality Measures DVT/VTE Risk/Contraindication: Risk Factor Score Per Nursin RFS Level Per Nursing on Admit: 4+=Very High CRISS FOSTER MD Aug 11, 2017 12:03 pm
[2017-08-11] MEDS: RT-ALBUTEROL/IPRATROPIUM 3 ML (DUONEB) VIAL INH SCH (14:31)
--- NOTE | 2017-08-14 07:21 | Discharge Summary ---
Diagnosis/Chief Complaint Date of Admission Aug 04, 2017 at 18:30 Date of Discharge Aug 11, 2017 at 17:38 Discharge Date: Aug 11, 2017 Discharge Time: 07:00 Admission Diagnosis Admission Diagnosis atrial fibrillation with RVR. Atrial flutter. Sepsis with pneumonia. Swollen neck. Coronary artery disease. Hyperlipidemia Discharge Diagnosis atrial flutter with RVR. Pneumonia. Cellulitis of neck. Culture strep viridans and coagulase-negative staph. Weakness. Dysphagia. hypertension Hypokalemia. Recent surgery for Zenker's diverticulum. Neck Cyst. Sepsis. Hyperlipidemia. GERD. Reason Hospital Visit patient came to the office yesterday very weak. Patient unable to walk. Patient brought in by wheelchair. Patient evaluated. Blood pressure low. Apical rate 150. Patient sent out to the emergency room. Patient in atrial fibrillation. Patient recently had zenkers diverticulum surgery [address] Armenta on Discharge Summary Procedures I&D of neck sepsis by surgeon Consultations cardiology. Pulmonology. Surgeon Discharge Physical Examination Allergies: Coded Allergies: No Known Drug Allergies (Verified , 08/04/17) Vitals & I&Os Vital Signs Date Time Temp Pulse Resp B/P (MAP) Pulse Ox O2 Delivery O2 Flow Rate FiO2 08/11/17 17:23 08/11/17 14:31 95 Room Air 08/11/17 12:00 97.5 62 20 08/10/17 12:00 2.00 Hospital Course patient in hospital didn't improve. Patient sent home with home health care. Patient doing much better than when he came in Labs (last 24 hrs) Laboratory Tests 08/04/17 17:25: White Blood Count 19.8H, Red Blood Count 4.39, Hemoglobin 13.9, Hematocrit 41, Mean Corpuscular Volume 94, Mean Corpuscular Hemoglobin 32, Mean Corpuscular Hemoglobin Concent 34, Red Cell Distribution Width 12.9, Platelet Count 267, Mean Platelet Volume 10.5H, Neutrophils (%) (Auto) 88H, Lymphocytes (%) (Auto) 2L, Monocytes (%) (Auto) 10, Eosinophils (%) (Auto) 0, Basophils (%) (Auto) 0, Neutrophils # (Auto) 17.4H, Lymphocytes # (Auto) 0.5L, Monocytes # (Auto) 1.9H, Eosinophils # (Auto) 0.0, Basophils # (Auto) 0.0, Neutrophils % (Manual) 83, Lymphocytes % (Manual) 0, Monocytes % (Manual) 9, Eosinophils % (Manual) 0, Basophils % (Manual) 0, Band Neutrophils 8, Blood Morphology Comment NORMAL, Prothrombin Time 27.7H, INR Comment 2.6H, Activated Partial Thromboplast Time 34 , Sodium Level 129L, Potassium Level 3.9, Chloride Level 96L, Carbon Dioxide Level 22, Anion Gap 11, Blood Urea Nitrogen 30H, Creatinine 1.15, Estimat Glomerular Filtration Rate > 60, BUN/Creatinine Ratio 26, Glucose Level 166H, Calcium Level 9.6, Magnesium Level 1.8, Total Bilirubin 0.8, Aspartate Amino Transf (AST/SGOT) 30, Alanine Aminotransferase (ALT/SGPT) 26, Alkaline Phosphatase 69, Myoglobin 162.2H, Troponin I < 0.30, C-Reactive Protein High Sensitivity 23.47H, B-Type Natriuretic Peptide 863.1H, Total Protein 7.0, Albumin 3.6, TSH [place] Testing 1.01, Digoxin Level 0.79L 08/04/17 18:10: Lactic Acid Level 3.04*H 08/04/17 20:15: Lactic Acid Level 1.83 08/05/17 03:40: White Blood Count 15.8H, Red Blood Count 4.03L, Hemoglobin 12.8L, Hematocrit 38L , Mean Corpuscular Volume 94, Mean Corpuscular Hemoglobin 32, Mean Corpuscular Hemoglobin Concent 34, Red Cell Distribution Width 13.0, Platelet Count 233, Mean Platelet Volume 10.6H, Neutrophils (%) (Auto) 84H, Lymphocytes (%) (Auto) 5L, Monocytes (%) (Auto) 11, Eosinophils (%) (Auto) 0, Basophils (%) (Auto) 0, Neutrophils # (Auto) 13.2H, Lymphocytes # (Auto) 0.8L, Monocytes # (Auto) 1.8H, Eosinophils # (Auto) 0.0, Basophils # (Auto) 0.0, Sodium Level 133L, Potassium Level 3.9, Chloride Level 104, Carbon Dioxide Level 19L, Anion Gap 10, Blood Urea Nitrogen 22H, Creatinine 0.78, Estimat Glomerular Filtration Rate > 60, BUN /Creatinine Ratio 28, Glucose Level 116H, Calcium Level 8.6, Magnesium Level 1.7L, Total Bilirubin 1.0, Aspartate Amino Transf (AST/SGOT) 29, Alanine Aminotransferase (ALT/SGPT) 26, Alkaline Phosphatase 70, Total Protein 5.7L, Albumin 3.0L, Digoxin Level 1.32, Phosphorus Level 2.0L, Triglycerides Level 48 , Cholesterol Level 73, LDL Cholesterol Direct 37, VLDL Cholesterol 10, HDL Cholesterol 25L 08/06/17 05:15: White Blood Count 10.2, Red Blood Count 3.81L, Hemoglobin 12.0L, Hematocrit 36L , Mean Corpuscular Volume 95, Mean Corpuscular Hemoglobin 32, Mean Corpuscular Hemoglobin Concent 33, Red Cell Distribution Width 13.3, Platelet Count 240, Mean Platelet Volume 9.9, Neutrophils (%) (Auto) 85H, Lymphocytes (%) (Auto) 6L , Monocytes (%) (Auto) 9, Eosinophils (%) (Auto) 0, Basophils (%) (Auto) 0, Neutrophils # (Auto) 8.6H, Lymphocytes # (Auto) 0.6L, Monocytes # (Auto) 0.9, Eosinophils # (Auto) 0.0, Basophils # (Auto) 0.0, Sodium Level 139, Potassium Level 3.7, Chloride Level 110H, Carbon Dioxide Level 19L, Anion Gap 10, Blood Urea Nitrogen 15, Creatinine 0.67, Estimat Glomerular Filtration Rate > 60, BUN/ Creatinine Ratio 22, Glucose Level 98, Calcium Level 8.2L, Phosphorus Level 2.0L , Magnesium Level 1.9 08/07/17 03:55: White Blood Count 10.0, Red Blood Count 4.00L, Hemoglobin 12.5L, Hematocrit 38L , Mean Corpuscular Volume 95, Mean Corpuscular Hemoglobin 31, Mean Corpuscular Hemoglobin Concent 33, Red Cell Distribution Width 13.2, Platelet Count 289, Mean Platelet Volume 10.0, Neutrophils (%) (Auto) 79H, Lymphocytes (%) (Auto) 10L, Monocytes (%) (Auto) 9, Eosinophils (%) (Auto) 2, Basophils (%) (Auto) 0, Neutrophils # (Auto) 7.9H, Lymphocytes # (Auto) 1.0, Monocytes # (Auto) 0.9, Eosinophils # (Auto) 0.2, Basophils # (Auto) 0.0, Sodium Level 138, Potassium Level 3.4L, Chloride Level 107, Carbon Dioxide Level 21, Anion Gap 10, Blood Urea Nitrogen 11, Creatinine 0.64, Estimat Glomerular Filtration Rate > 60, BUN/ Creatinine Ratio 17, Glucose Level 96, Calcium Level 8.5, Phosphorus Level 1.7L , Magnesium Level 1.9, Total Bilirubin 0.8, Aspartate Amino Transf (AST/SGOT) 99H, Alanine Aminotransferase (ALT/SGPT) 84H, Alkaline Phosphatase 84, Total Protein 5.7L, Albumin 2.9L 08/08/17 06:00: White Blood Count 8.1, Red Blood Count 4.20L, Hemoglobin 13.2L, Hematocrit 39L, Mean Corpuscular Volume 94, Mean Corpuscular Hemoglobin 31, Mean Corpuscular Hemoglobin Concent 34, Red Cell Distribution Width 13.1, Platelet Count 313, Mean Platelet Volume 9.8, Neutrophils (%) (Auto) 66, Lymphocytes (%) (Auto) 15, Monocytes (%) (Auto) 13H, Eosinophils (%) (Auto) 5, Basophils (%) (Auto) 1, Neutrophils # (Auto) 5.4, Lymphocytes # (Auto) 1.2, Monocytes # (Auto) 1.1H, Eosinophils # (Auto) 0.4H, Basophils # (Auto) 0.1, Sodium Level 137, Potassium Level 3.5L, Chloride Level 105, Carbon Dioxide Level 21, Anion Gap 11, Blood Urea Nitrogen 6L, Creatinine 0.60, Estimat Glomerular Filtration Rate > 60, BUN/ Creatinine Ratio 10, Glucose Level 103, Calcium Level 8.4L, Total Bilirubin 0.7 , Aspartate Amino Transf (AST/SGOT) 54H, Alanine Aminotransferase (ALT/SGPT) 74H , Alkaline Phosphatase 82, Total Protein 5.5L, Albumin 2.9L, B-Type Natriuretic Peptide 792.5H 08/09/17 06:28: White Blood Count 9.0, Red Blood Count 3.96L, Hemoglobin 12.4L, Hematocrit 37L, Mean Corpuscular Volume 92, Mean Corpuscular Hemoglobin 31, Mean Corpuscular Hemoglobin Concent 34, Red Cell Distribution Width 12.8, Platelet Count 295, Mean Platelet Volume 9.1, Sodium Level 138, Potassium Level 3.4L, Chloride Level 102, Carbon Dioxide Level 25, Anion Gap 11, Blood Urea Nitrogen 6L, Creatinine 0.70, Estimat Glomerular Filtration Rate > 60, BUN/Creatinine Ratio 9 , Glucose Level 93, Calcium Level 8.8, Magnesium Level 1.5L, Total Bilirubin 0.7 , Aspartate Amino Transf (AST/SGOT) 38H, Alanine Aminotransferase (ALT/SGPT) 63H , Alkaline Phosphatase 92, Total Protein 6.0L, Albumin 3.2, B-Type Natriuretic Peptide 509.7H, Digoxin Level 1.06 08/10/17 06:00: White Blood Count 9.6, Red Blood Count 4.49, Hemoglobin 14.1, Hematocrit 41, Mean Corpuscular Volume 92, Mean Corpuscular Hemoglobin 31, Mean Corpuscular Hemoglobin Concent 34, Red Cell Distribution Width 13.0, Platelet Count 392, Mean Platelet Volume 9.5, Neutrophils (%) (Auto) 65, Lymphocytes (%) (Auto) 15, Monocytes (%) (Auto) 14H, Eosinophils (%) (Auto) 6, Basophils (%) (Auto) 1, Neutrophils # (Auto) 6.3, Lymphocytes # (Auto) 1.4, Monocytes # (Auto) 1.3H, Eosinophils # (Auto) 0.6H, Basophils # (Auto) 0.1, Sodium Level 138, Potassium Level 3.5L, Chloride Level 103, Carbon Dioxide Level 24, Anion Gap 11, Blood Urea Nitrogen 6L, Creatinine 0.77, Estimat Glomerular Filtration Rate > 60, BUN/ Creatinine Ratio 8, Glucose Level 101, Calcium Level 9.2, Total Bilirubin 0.6, Aspartate Amino Transf (AST/SGOT) 26, Alanine Aminotransferase (ALT/SGPT) 49, Alkaline Phosphatase 82, Total Protein 5.9L, Albumin 3.3 08/11/17 05:55: White Blood Count 9.2, Red Blood Count 4.37, Hemoglobin 13.6, Hematocrit 41, Mean Corpuscular Volume 93, Mean Corpuscular Hemoglobin 31, Mean Corpuscular Hemoglobin Concent 34, Red Cell Distribution Width 13.1, Platelet Count 372, Mean Platelet Volume 9.5, Neutrophils (%) (Auto) 62, Lymphocytes (%) (Auto) 18, Monocytes (%) (Auto) 12, Eosinophils (%) (Auto) 7, Basophils (%) (Auto) 1, Neutrophils # (Auto) 5.7, Lymphocytes # (Auto) 1.6, Monocytes # (Auto) 1.1H, Eosinophils # (Auto) 0.6H, Basophils # (Auto) 0.1, Sodium Level 137, Potassium Level 3.4L, Chloride Level 105, Carbon Dioxide Level 22, Anion Gap 10, Blood Urea Nitrogen 6L, Creatinine 0.70, Estimat Glomerular Filtration Rate > 60, BUN/ Creatinine Ratio 9, Glucose Level 96, Calcium Level 8.8, Total Bilirubin 0.6, Aspartate Amino Transf (AST/SGOT) 25, Alanine Aminotransferase (ALT/SGPT) 40, Alkaline Phosphatase 80, Total Protein 6.0L, Albumin 3.1L Microbiology 08/04/17 Blood Culture - Final, Complete No growth 08/05/17 Gram Stain - Final, Complete 08/05/17 Wound Culture - Final, Complete Streptococcus Viridans Staph, Coag Neg ([place] [employer]) Laboratory Tests 08/04/17 17:25 08/05/17 03:40 08/06/17 05:15 08/07/17 03:55 08/08/17 06:00 08/09/17 06:28 08/10/17 06:00 08/11/17 05:55 Pending Labs Microbiology Date/Time Source Procedure Growth Status 08/04/17 18:31 Peripheral Lt Ac Blood Culture - Final No growth Complete 08/04/17 18:10 Peripheral Rt Forearm Blood Culture - Final No growth Complete 08/05/17 15:00 Incision Neck Gram Stain - Final Complete 08/05/17 15:00 Wound Culture - Final Streptococcus Viridans Staph, Coag Neg ([place] [employer]) Complete 08/05/17 04:00 Incision Neck Gram Stain - Final Complete 08/05/17 04:00 Wound Culture - Final Staph, Coag Neg ([place] [employer]) Streptococcus Viridans Complete Laboratory Tests 08/04/17 17:25: White Blood Count 19.8, Red Blood Count 4.39, Hemoglobin 13.9, Hematocrit 41, Mean Corpuscular Volume 94, Mean Corpuscular Hemoglobin 32, Mean Corpuscular Hemoglobin Concent 34, Red Cell Distribution Width 12.9, Platelet Count 267, Mean Platelet Volume 10.5, Neutrophils (%) (Auto) 88, Lymphocytes (%) (Auto) 2, Monocytes (%) (Auto) 10, Eosinophils (%) (Auto) 0, Basophils (%) (Auto) 0, Neutrophils # (Auto) 17.4, Lymphocytes # (Auto) 0.5, Monocytes # (Auto) 1.9, Eosinophils # (Auto) 0.0, Basophils # (Auto) 0.0, Neutrophils % (Manual) 83, Lymphocytes % (Manual) 0, Monocytes % (Manual) 9, Eosinophils % (Manual) 0, Basophils % (Manual) 0, Band Neutrophils 8, Blood Morphology Comment NORMAL, Prothrombin Time 27.7, INR Comment 2.6, Activated Partial Thromboplast Time 34, Sodium Level 129, Potassium Level 3.9, Chloride Level 96, Carbon Dioxide Level 22, Anion Gap 11, Blood Urea Nitrogen 30, Creatinine 1.15, Estimat Glomerular Filtration Rate > 60, BUN/Creatinine Ratio 26, Glucose Level 166, Calcium Level 9.6, Magnesium Level 1.8, Total Bilirubin 0.8, Aspartate Amino Transf (AST/SGOT ) 30, Alanine Aminotransferase (ALT/SGPT) 26, Alkaline Phosphatase 69, Myoglobin 162.2, Troponin I < 0.30, C-Reactive Protein High Sensitivity 23.47, B -Type Natriuretic Peptide 863.1, Total Protein 7.0, Albumin 3.6, TSH [place] Testing 1.01, Digoxin Level 0.79 08/04/17 18:10: Lactic Acid Level 3.04 08/04/17 20:15: Lactic Acid Level 1.83 08/05/17 03:40: White Blood Count 15.8, Red Blood Count 4.03, Hemoglobin 12.8, Hematocrit 38, Mean Corpuscular Volume 94, Mean Corpuscular Hemoglobin 32, Mean Corpuscular Hemoglobin Concent 34, Red Cell Distribution Width 13.0, Platelet Count 233, Mean Platelet Volume 10.6, Neutrophils (%) (Auto) 84, Lymphocytes (%) (Auto) 5, Monocytes (%) (Auto) 11, Eosinophils (%) (Auto) 0, Basophils (%) (Auto) 0, Neutrophils # (Auto) 13.2, Lymphocytes # (Auto) 0.8, Monocytes # (Auto) 1.8, Eosinophils # (Auto) 0.0, Basophils # (Auto) 0.0, Sodium Level 133, Potassium Level 3.9, Chloride Level 104, Carbon Dioxide Level 19, Anion Gap 10, Blood Urea Nitrogen 22, Creatinine 0.78, Estimat Glomerular Filtration Rate > 60, BUN/ Creatinine Ratio 28, Glucose Level 116, Calcium Level 8.6, Magnesium Level 1.7, Total Bilirubin 1.0, Aspartate Amino Transf (AST/SGOT) 29, Alanine Aminotransferase (ALT/SGPT) 26, Alkaline Phosphatase 70, Total Protein 5.7, Albumin 3.0, Digoxin Level 1.32, Phosphorus Level 2.0, Triglycerides Level 48, Cholesterol Level 73, LDL Cholesterol Direct 37, VLDL Cholesterol 10, HDL Cholesterol 25 08/06/17 05:15: White Blood Count 10.2, Red Blood Count 3.81, Hemoglobin 12.0, Hematocrit 36, Mean Corpuscular Volume 95, Mean Corpuscular Hemoglobin 32, Mean Corpuscular Hemoglobin Concent 33, Red Cell Distribution Width 13.3, Platelet Count 240, Mean Platelet Volume 9.9, Neutrophils (%) (Auto) 85, Lymphocytes (%) (Auto) 6, Monocytes (%) (Auto) 9, Eosinophils (%) (Auto) 0, Basophils (%) (Auto) 0, Neutrophils # (Auto) 8.6, Lymphocytes # (Auto) 0.6, Monocytes # (Auto) 0.9, Eosinophils # (Auto) 0.0, Basophils # (Auto) 0.0, Sodium Level 139, Potassium Level 3.7, Chloride Level 110, Carbon Dioxide Level 19, Anion Gap 10, Blood Urea Nitrogen 15, Creatinine 0.67, Estimat Glomerular Filtration Rate > 60, BUN/ Creatinine Ratio 22, Glucose Level 98, Calcium Level 8.2, Phosphorus Level 2.0, Magnesium Level 1.9 08/07/17 03:55: White Blood Count 10.0, Red Blood Count 4.00, Hemoglobin 12.5, Hematocrit 38, Mean Corpuscular Volume 95, Mean Corpuscular Hemoglobin 31, Mean Corpuscular Hemoglobin Concent 33, Red Cell Distribution Width 13.2, Platelet Count 289, Mean Platelet Volume 10.0, Neutrophils (%) (Auto) 79, Lymphocytes (%) (Auto) 10 , Monocytes (%) (Auto) 9, Eosinophils (%) (Auto) 2, Basophils (%) (Auto) 0, Neutrophils # (Auto) 7.9, Lymphocytes # (Auto) 1.0, Monocytes # (Auto) 0.9, Eosinophils # (Auto) 0.2, Basophils # (Auto) 0.0, Sodium Level 138, Potassium Level 3.4, Chloride Level 107, Carbon Dioxide Level 21, Anion Gap 10, Blood Urea Nitrogen 11, Creatinine 0.64, Estimat Glomerular Filtration Rate > 60, BUN/ Creatinine Ratio 17, Glucose Level 96, Calcium Level 8.5, Phosphorus Level 1.7, Magnesium Level 1.9, Total Bilirubin 0.8, Aspartate Amino Transf (AST/SGOT) 99, Alanine Aminotransferase (ALT/SGPT) 84, Alkaline Phosphatase 84, Total Protein 5.7, Albumin 2.9 08/08/17 06:00: White Blood Count 8.1, Red Blood Count 4.20, Hemoglobin 13.2, Hematocrit 39, Mean Corpuscular Volume 94, Mean Corpuscular Hemoglobin 31, Mean Corpuscular Hemoglobin Concent 34, Red Cell Distribution Width 13.1, Platelet Count 313, Mean Platelet Volume 9.8, Neutrophils (%) (Auto) 66, Lymphocytes (%) (Auto) 15, Monocytes (%) (Auto) 13, Eosinophils (%) (Auto) 5, Basophils (%) (Auto) 1, Neutrophils # (Auto) 5.4, Lymphocytes # (Auto) 1.2, Monocytes # (Auto) 1.1, Eosinophils # (Auto) 0.4, Basophils # (Auto) 0.1, Sodium Level 137, Potassium Level 3.5, Chloride Level 105, Carbon Dioxide Level 21, Anion Gap 11, Blood Urea Nitrogen 6, Creatinine 0.60, Estimat Glomerular Filtration Rate > 60, BUN/ Creatinine Ratio 10, Glucose Level 103, Calcium Level 8.4, Total Bilirubin 0.7, Aspartate Amino Transf (AST/SGOT) 54, Alanine Aminotransferase (ALT/SGPT) 74, Alkaline Phosphatase 82, Total Protein 5.5, Albumin 2.9, B-Type Natriuretic Peptide 792.5 08/09/17 06:28: White Blood Count 9.0, Red Blood Count 3.96, Hemoglobin 12.4, Hematocrit 37, Mean Corpuscular Volume 92, Mean Corpuscular Hemoglobin 31, Mean Corpuscular Hemoglobin Concent 34, Red Cell Distribution Width 12.8, Platelet Count 295, Mean Platelet Volume 9.1, Sodium Level 138, Potassium Level 3.4, Chloride Level 102, Carbon Dioxide Level 25, Anion Gap 11, Blood Urea Nitrogen 6, Creatinine 0.70, Estimat Glomerular Filtration Rate > 60, BUN/Creatinine Ratio 9, Glucose Level 93, Calcium Level 8.8, Magnesium Level 1.5, Total Bilirubin 0.7, Aspartate Amino Transf (AST/SGOT) 38, Alanine Aminotransferase (ALT/SGPT) 63, Alkaline Phosphatase 92, Total Protein 6.0, Albumin 3.2, B-Type Natriuretic Peptide 509.7, Digoxin Level 1.06 08/10/17 06:00: White Blood Count 9.6, Red Blood Count 4.49, Hemoglobin 14.1, Hematocrit 41, Mean Corpuscular Volume 92, Mean Corpuscular Hemoglobin 31, Mean Corpuscular Hemoglobin Concent 34, Red Cell Distribution Width 13.0, Platelet Count 392, Mean Platelet Volume 9.5, Neutrophils (%) (Auto) 65, Lymphocytes (%) (Auto) 15, Monocytes (%) (Auto) 14, Eosinophils (%) (Auto) 6, Basophils (%) (Auto) 1, Neutrophils # (Auto) 6.3, Lymphocytes # (Auto) 1.4, Monocytes # (Auto) 1.3, Eosinophils # (Auto) 0.6, Basophils # (Auto) 0.1, Sodium Level 138, Potassium Level 3.5, Chloride Level 103, Carbon Dioxide Level 24, Anion Gap 11, Blood Urea Nitrogen 6, Creatinine 0.77, Estimat Glomerular Filtration Rate > 60, BUN/ Creatinine Ratio 8, Glucose Level 101, Calcium Level 9.2, Total Bilirubin 0.6, Aspartate Amino Transf (AST/SGOT) 26, Alanine Aminotransferase (ALT/SGPT) 49, Alkaline Phosphatase 82, Total Protein 5.9, Albumin 3.3 08/11/17 05:55: White Blood Count 9.2, Red Blood Count 4.37, Hemoglobin 13.6, Hematocrit 41, Mean Corpuscular Volume 93, Mean Corpuscular Hemoglobin 31, Mean Corpuscular Hemoglobin Concent 34, Red Cell Distribution Width 13.1, Platelet Count 372, Mean Platelet Volume 9.5, Neutrophils (%) (Auto) 62, Lymphocytes (%) (Auto) 18, Monocytes (%) (Auto) 12, Eosinophils (%) (Auto) 7, Basophils (%) (Auto) 1, Neutrophils # (Auto) 5.7, Lymphocytes # (Auto) 1.6, Monocytes # (Auto) 1.1, Eosinophils # (Auto) 0.6, Basophils # (Auto) 0.1, Sodium Level 137, Potassium Level 3.4, Chloride Level 105, Carbon Dioxide Level 22, Anion Gap 10, Blood Urea Nitrogen 6, Creatinine 0.70, Estimat Glomerular Filtration Rate > 60, BUN/ Creatinine Ratio 9, Glucose Level 96, Calcium Level 8.8, Total Bilirubin 0.6, Aspartate Amino Transf (AST/SGOT) 25, Alanine Aminotransferase (ALT/SGPT) 40, Alkaline Phosphatase 80, Total Protein 6.0, Albumin 3.1 Radiology Reviewed NAME: HARSHIL RHODES [facility] REC#: [id number] PT STATUS: ADM IN : 1935 PHYSICIAN: BRITTANY BARRIOS DO ADMIT DATE: 08/04/17/ICU Signed Date of Exam: 08/05/17 CT NECK/CHEST W EXAMINATION: CT neck and chest. INDICATION: Cellulitis. Fluid collection. Concern for abscess. The patient has had Zenker's diverticulum repair. CONTRAST: 100 mL of Omnipaque 350 was administered intravenously. FINDINGS: CT NECK: There is a fluid collection with a peripheral rim of enhancement seen in the lower neck to the left of the midline measuring 5.2 x 6.9 x 6.8 cm. It is abutting the left thyroid lobe and displacing it along with the trachea to the right side. This is concerning for an abscess. There is edematous tissue in the retropharyngeal space in the hypopharynx region and around the upper esophagus. This is probably related to the abscess and also is perhaps a remnant of edema from the surgery. The parotid glands appear symmetric. The submandibular gland on the left side is displaced anteriorly from the inflammation and surrounding stranding. The right submandibular gland appears unremarkable. There is mild mucosal thickening in the left maxillary sinus. Discharge Home Medications: Active Scripts Active Diltiazem 24Hr ER (Diltiazem HCl) 360 Mg Cap.er.24h 360 Mg PO DAILY 30 Days Reported Metformin HCl ER (Metformin HCl) 500 Mg Tab.er.24h 500 Mg PO HS Eliquis (Apixaban) 5 Mg Tablet 5 Mg PO BID Toprol Xl (Metoprolol Succinate) 50 Mg Tab.er.24h 50 Mg PO HS Aspirin EC (Aspirin) 81 Mg Tablet.dr 81 Mg PO HS Losartan Potassium 50 Mg Tablet 50 Mg PO DAILY Digoxin 125 Mcg Tablet 125 Mcg PO DAILY Hydrocodon-Acetaminoph 7.5-325 (Hydrocodone/Acetaminophen) 1 Each Tablet 0.5-1 Tab PO Q4H PRN Ketoconazole 120 Ml Shampoo TOP DAILY Dexilant (Dexlansoprazole) 60 Mg Cap.dr.bp 60 Mg PO DAILY Alfuzosin HCl ER (Alfuzosin HCl) 10 Mg Tab.er.24h 10 Mg PO 1900 Atorvastatin Calcium 40 Mg Tablet 40 Mg PO HS Bethanechol Chloride 25 Mg Tablet 25 Mg PO QID Instructions to patient/family Please see electronic discharge instructions given to patient. Clinical Quality Measures DVT/VTE Risk/Contraindication: Risk Factor Score Per Nursin RFS Level Per Nursing on Admit: 4+=Very High ALBARO BRADFORD DO Aug 14, 2017 07:21
== END 2017-08-11 17:38 | disposition home health service (06) | DRG 853 ==
LOC: EDUNIT# 17:06 → ER 17:11 → ICU 18:30 → 4TH 08-07 15:12
PROVIDERS: ADMIT Family Medicine; ATTEND Family Medicine
PROC: 0J950ZZ Drainage of Left Neck Subcutaneous Tissue and Fascia, Open Approach (ICD-10-PCS; principal; 2017-08-05)
DX: A41.9 Sepsis, unspecified organism (principal); J18.9 Pneumonia, unspecified organism; L03.221 Cellulitis of neck; L02.11 Cutaneous abscess of neck; I48.92 Unspecified atrial flutter; I48.0 Paroxysmal atrial fibrillation; J98.11 Atelectasis; E87.1 Hypo-osmolality and hyponatremia; I25.10 Atherosclerotic heart disease of native coronary artery without angina pectoris; E78.5 Hyperlipidemia, unspecified; E11.9 Type 2 diabetes mellitus without complications; K21.9 Gastro-esophageal reflux disease without esophagitis; N40.0 Benign prostatic hyperplasia without lower urinary tract symptoms; I10 Essential (primary) hypertension; I65.23 Occlusion and stenosis of bilateral carotid arteries; R13.10 Dysphagia, unspecified; E83.39 Other disorders of phosphorus metabolism; R19.7 Diarrhea, unspecified; E87.6 Hypokalemia; Z87.891 Personal history of nicotine dependence; Z86.73 Personal history of transient ischemic attack (TIA), and cerebral infarction without residual deficits; Z98.890 Other specified postprocedural states; J44.9 Chronic obstructive pulmonary disease, unspecified; B95.5 Unspecified streptococcus as the cause of diseases classified elsewhere; B95.8 Unspecified staphylococcus as the cause of diseases classified elsewhere
CPT/HCPCS: 36415; 70491; 71010; 71020; 71260; 74230; 80048; 80053; 80061; 80162; 83605; 83735; 83874; 83880; 84100; 84443; 84484; 85007; 85025; 85027; 85610; 85730; 86141; 87040; 87070; 87077; 87186; 87205; 93005; 93041; 93306; 94640; 94664; 94760; 96361; 96365; 96366; 96367; 96375

== ENCOUNTER 2017-10-05 08:26 | Emergency (ER) | payer MEDICARE, OTHER ==
[~2017-10-05] VITALS: Ht 170.2 cm; Wt 61.2 kg
[~2017-10-05 08:26] MED LIST changes: +ASPI-983 PO; +DIGO125T PO; +DILT240C PO; +DILT360C36 PO; +HYDR-3816 PO; +LOSA50TA36 PO; +METF500T8 PO; -METO-272 PO; +METO-352 PO; +METO-370 PO; +WALK1EAC23 MC
--- NOTE | 2017-10-05 08:58 | Diagnostic Imaging Report ---
INDICATION: Cough. Comparison with 08/11/2017. PA and lateral views. FINDINGS: Rather severe obstructive interstitial lung disease is again noted. There has been development of new infiltrate in the left lung base. Heart is not enlarged. No pneumothorax or pleural effusion. IMPRESSION: 1. Rather severe obstructive interstitial lung disease. 2. Superimposed left lower lobe pneumonia. Dictated by: Dictated on workstation # [id number]
--- NOTE | 2017-10-05 09:07 | ED General ---
General Chief Complaint: Cough/Cold/Flu Symptoms Stated Complaint: COUGH, POSS PNUEMONIA Nursing Triage Note: AMB TO ROOM C/O COUGH FOR 1 WEEK NO OTHER SYMPTOMS Nursing Sepsis Screen: No Definite Risk Source of Information: Patient Exam Limitations: No Limitations History of Present Illness Time Seen by Provider: 08:29 Initial Comments This 82-year-old gentleman presents to the emergency room with one week of cough. He denies any fever at home. He has had prior history of pneumonia and is concerned he may have pneumonia again. He has atrial fibrillation and takes Eliquis and Digoxin. Vital signs are stable at this time. Allergies and Home Medications Allergies Coded Allergies: No Known Drug Allergies (Verified , 08/04/17) Home Medications Alfuzosin HCl 10 Mg Tab.er.24h, 10 MG PO 1900, (Reported) Apixaban 5 Mg Tablet, 5 MG PO BID, (Reported) Aspirin 81 Mg Tablet.dr, 81 MG PO HS, (Reported) Atorvastatin Calcium 40 Mg Tablet, 40 MG PO HS, (Reported) Bethanechol Chloride 25 Mg Tablet, 25 MG PO QID, (Reported) Dexlansoprazole 60 Mg Cap.dr.bp, 60 MG PO DAILY, (Reported) Digoxin 125 Mcg Tablet, 125 MCG PO DAILY, (Reported) Diltiazem HCl 360 Mg Cap.er.24h, 360 MG PO DAILY for 30 Days, #30 Ref 5 Prescribed by: CAMELIA MAYES on 08/11/17 1206 Hydrocodone/Acetaminophen 1 Each Tablet, 0.5-1 TAB PO Q4H PRN for PAIN-MODERATE, (Reported) Ketoconazole 120 Ml Shampoo, TOP DAILY, (Reported) Levofloxacin 750 Mg Tablet, 750 MG PO DAILY, #5 Prescribed by: PRASHANTH JACKSON on 10/05/17 0912 Losartan Potassium 50 Mg Tablet, 50 MG PO DAILY, (Reported) Metformin HCl 500 Mg Tab.er.24h, 500 MG PO HS, (Reported) Metoprolol Succinate 50 Mg Tab.er.24h, 50 MG PO HS, (Reported) Constitutional: no symptoms reported EENTM: no symptoms reported Respiratory: see HPI Cardiovascular: see HPI Gastrointestinal: no symptoms reported Genitourinary: no symptoms reported Musculoskeletal: no symptoms reported Skin: no symptoms reported Psychiatric/Neurological: No Symptoms Reported Hematologic/Lymphatic: No Symptoms Reported Past Mwlryrp-Kunwli-Yzcwdq Hx Patient Social History Alcohol Use: Occasionally Uses Recreational Drug Use: No Smoking Status: Never a Smoker Former Smoker, Quit: Jul 26, 1984 Recent Foreign Travel: No Contact w/Someone Who Travel: No Recent Infectious Disease Expo: No Recent Hopitalizations: No Immunizations Up To Date Tetanus Booster (TDap): Unknown Date of Pneumonia Vaccine: Jul 27, 2013 Date of Influenza Vaccine: Jul 09, 2016 Seasonal Allergies Seasonal Allergies: No Surgeries History of Surgeries: Yes Surgeries: Neurological, Orthopedic Respiratory History of Respiratory Disorde: Yes Respiratory Disorders: Pneumonia Currently Using CPAP: No Currently Using BIPAP: No Cardiovascular History of Cardiac Disorders: Yes (CARDIOMEGALY, PAROXYSMAL A FIB, RHEUMATIC VALVE DZ: TRICUSPID, MITRAL) Cardiac Disorders: Atrial Fibrillation, Coronary Artery Disease, High Cholesterol, Hypertension, Valvular Heart Disease Neurological History of Neurological Disord: Yes (DYSPHAGIA HX) Reproductive System Hx Reproductive Disorders: No Sexually Transmitted Disease: No HIV/AIDS: No Genitourinary History of Genitourinary Disor: Yes Genitourinary Disorders: Benign Prostatic Hyperpl Gastrointestinal History of Gastrointestinal Di: Yes Gastrointestinal Disorders: Gastroesophageal Reflux, Diverticulosis Musculoskeletal History of Musculoskeletal Dis: Yes (ORTHO SURGERIES ABOVE) Musculoskeletal Disorders: Arthritis, Chronic Back Pain Endocrine History of Endocrine Disorders: Yes (DM TYPE II) Endocrine Disorders: Diabetes, Non-Insulin dep HEENT History of HEENT Disorders: Yes HEENT Disorders: Cataract Loss of Vision: Denies Hearing Impairment: Denies Cancer History of Cancer: No Psychosocial History of Psychiatric Problem: No Integumentary History of Skin or Integumenta: No Blood Transfusions History of Blood Disorders: No Family Medical History Family Medial History: FH: liver disease 19 MOTHER FH: lung cancer 19 FATHER Physical Exam Vital Signs Vital Sign - Last 12Hours 10/05/17 08:30 Temp 98.4 Pulse 82 Resp 18 B/P (MAP) 139/71 (93) Pulse Ox 92 O2 Delivery Room Air Capillary Refill : Less Than 3 Seconds General Appearance: No Apparent Distress, WD/WN HEENT: PERRL/EOMI, Normal ENT Inspection, Pharynx Normal Neck: Normal Inspection Respiratory: No Accessory Muscle Use, No Respiratory Distress, Rhonci (right greater than left) Cardiovascular: No Edema, No Murmur, Irregularly Irregular Gastrointestinal: Non Tender, Soft Extremity: Normal Inspection, No Pedal Edema Neurologic/Psychiatric: Alert, Oriented x3, No Motor/Sensory Deficits, 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, 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 Norm as Tested Skin: Normal Color, Warm/Dry Progress/Results/Core Measures Suspected Sepsis Recent Fever Within 48 Hours: No Infection Criteria Present: None New/Unexplained Altered Menta: No Sepsis Screen: No Definite Risk Sepsis Diagnosis: SIRS Temperature:98.4 Pulse: 82 Respiratory Rate: 18 Blood Pressure 139 /71 Mean: 93 Results/Orders My Orders Orders - PRASHANTH AMOS MD Chest Pa/Lat (2 View) (10/05/17 08:31) Vital Signs/I&O Vital Sign - Last 12Hours 10/05/17 08:30 Temp 98.4 Pulse 82 Resp 18 B/P (MAP) 139/71 (93) Pulse Ox 92 O2 Delivery Room Air Capillary Refill : Less Than 3 Seconds Blood Pressure Mean: 93 Progress Note : Progress Note Left lower lobe pneumonia was appreciated on chest x-ray. A medication interaction sales store checker was run and Levaquin was selected as antibiotic of choice due to greater risk of interactions with azithromycin. Patient was encouraged to exercise deep breathing at home. He has an incentive spirometer he plans to use. Patient has an appointment with Dr. Bradford tomorrow and was encouraged to keep that appointment for reexamination and to obtain a recheck on his vital signs. Diagnostic Imaging Diagonstic Imaging: Xray Plain Films/CT/US/NM/MRI: chest Comments Chest x-ray viewed by me and compared with prior. Report reviewed. See report below: NAME: HARSHIL RHODES [facility] REC#: [id number] PT STATUS: REG ER : 1935 PHYSICIAN: PRASHANTH AMOS MD ADMIT DATE: 10/05/17/ER Draft Date of Exam:10/05/17 CHEST PA/LAT (2 VIEW) INDICATION: Cough. Comparison with 08/11/2017. PA and lateral views. FINDINGS: Rather severe obstructive interstitial lung disease is again noted. There has been development of new infiltrate in the left lung base. Heart is not enlarged. No pneumothorax or pleural effusion. IMPRESSION: 1. Rather severe obstructive interstitial lung disease. 2. Superimposed left lower lobe pneumonia. Dictated on workstation # [id number] Dict: 10/05/17 0852 Trans: 10/05/17 0857 [id number] Interpreted by: EVENS RAHMAN MD Departure Impression Impression: Primary Impression: Left lower lobe pneumonia Qualified Codes: J18.1 - Lobar pneumonia, unspecified organism Disposition: HOME, SELF-CARE Condition: Stable Departure-Patient Inst. Decision time for Depature: 09:06 Referrals: ALBARO BRADFORD DO (PCP/Family) Primary Care Physician Patient Instructions: Pneumonia, Adult (DC) Add. Discharge Instructions: Complete your antibiotic as prescribed. See Dr. Bradford as scheduled tomorrow. Return to emergency room if symptoms worsen. Drink plenty of clear liquids and exercise deep breathing. You may take Tylenol (acetaminophen) up to 1000 mg every 6 hours as needed for discomfort. All discharge instructions reviewed with patient and/or family. Voiced understanding. Scripts Levofloxacin (Levaquin) 750 Mg Tablet 750 MG PO DAILY, #5 TAB Prov: PRASHANTH AMOS MD 10/05/17 Copy Copies To 1: ALBARO BRADFORD JOSHUA T MD Oct 05, 2017 09:07
[2017-10-05] MEDS ORDERED: LEVO750T9 PO (09:12)
[2017-10-05 09:16] VITALS: BP 139/71
== END 2017-10-05 09:15 | disposition home or self-care (01) ==
LOC: EDUNIT# 08:26 → ER 08:29
DX: J18.1 Lobar pneumonia, unspecified organism (principal); I48.91 Unspecified atrial fibrillation; I25.10 Atherosclerotic heart disease of native coronary artery without angina pectoris; E78.00 Pure hypercholesterolemia, unspecified; I10 Essential (primary) hypertension; I51.7 Cardiomegaly; N40.0 Benign prostatic hyperplasia without lower urinary tract symptoms; K21.9 Gastro-esophageal reflux disease without esophagitis; E11.9 Type 2 diabetes mellitus without complications; M19.90 Unspecified osteoarthritis, unspecified site; Z80.1 Family history of malignant neoplasm of trachea, bronchus and lung; Z87.19 Personal history of other diseases of the digestive system; Z79.01 Long term (current) use of anticoagulants; Z79.82 Long term (current) use of aspirin; Z79.84 Long term (current) use of oral hypoglycemic drugs; Z87.01 Personal history of pneumonia (recurrent)
CPT/HCPCS: 71020; 99282

== ENCOUNTER → 2017-10-13 | Outpatient (CLI) | payer MEDICARE, OTHER ==
[~2017-10-13] MED LIST changes: +LEVO750T9 PO
--- NOTE | 2017-10-13 15:02 | Diagnostic Imaging Report ---
INDICATION: Pneumonia. COMPARISON: 10/05/2017 FINDINGS: Two views of the chest are obtained. Heart size and pulmonary vasculature appear unremarkable. There is no pneumothorax or mediastinal widening. Chronic findings of COPD are again demonstrated. Interstitial lung changes are also again noted. Infiltrate at the left lung base persists but is moderately improved from the prior study. No new abnormalities are seen. IMPRESSION: Improved but persistent left lower lobe infiltrate superimposed on chronic findings of COPD and interstitial change. An additional followup study is recommended. Dictated by: Dictated on workstation # [id number]
== END ==
LOC: RAD 14:20
PROVIDERS: ATTEND Family Medicine
DX: J18.1 Lobar pneumonia, unspecified organism (principal); J44.9 Chronic obstructive pulmonary disease, unspecified
CPT/HCPCS: 71020

== ENCOUNTER → 2017-10-22 | Outpatient (CLI) | payer MEDICARE, OTHER ==
--- NOTE | 2017-10-22 10:43 | Diagnostic Imaging Report ---
EXAMINATION: PA and lateral views of the chest. INDICATION: Pneumonia. COMPARISON: 10/13/2017. FINDINGS: The lungs are hyperinflated. There is interstitial thickening and fibrotic changes in the lung bases are seen with no definite superimposed acute infiltrate. No effusion or pneumothorax. The heart size is normal. The mediastinum and bharat appear unremarkable. When compared to multiple prior studies, there is improvement in previously seen infiltrate in the left lower lobe with no definite residual acute component. IMPRESSION: Chronic appearing interstitial thickening with bibasilar fibrotic changes. Dictated by: Dictated on workstation # [id number]
== END ==
LOC: RAD 09:39
PROVIDERS: ATTEND Family Medicine
DX: J84.10 Pulmonary fibrosis, unspecified (principal); R91.8 Other nonspecific abnormal finding of lung field; J18.9 Pneumonia, unspecified organism
CPT/HCPCS: 71020

== ENCOUNTER 2017-11-28 14:47 | Emergency (ER) | payer MEDICARE, OTHER ==
[~2017-11-28] VITALS: Ht 170.2 cm; Wt 63.5 kg
[~2017-11-28 14:47] MED LIST changes: +ALBU2.5V4 NEB; +APIX2.5T PO; +BETA15CR37 TOP; +DILT360C30 PO; +HYDR-34 PO; -HYDR-3816 PO; +KETO15CR2 TOP; +METO-387 PO; +PANT40TA2 PO; +SUCR1TAB36 PO; +[UNRECOGNIZED DRUG - CODE] PO
--- NOTE | 2017-11-28 16:10 | ED General ---
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 Pt reports he is SOA while sitting. Pt also reports sweating at time of onset. Nursing Sepsis Screen: No Definite Risk Source of Information: Patient Exam Limitations: No Limitations History of Present Illness Date Seen by Provider: Nov 28, 2017 Time Seen by Provider: 15:30 Initial Comments This 82-year-old gentleman presents to the emergency room with complaints of sudden onset of chills and sweats at home. He had no fever. He was aware of. He denies any other symptoms of cough, nausea, vomiting, diarrhea, or other acute symptoms of illness. He is feeling improved at this time and is afebrile on arrival. Allergies and Home Medications Allergies Coded Allergies: No Known Drug Allergies (Verified , 08/04/17) Home Medications Albuterol Sulfate 2.5 Mg/3 Ml Vial.neb, 2.5 MG NEB Q6H PRN for SHORTNESS OF BREATH, (Reported) Alfuzosin HCl 10 Mg Tab.er.24h, 10 MG PO 1900, (Reported) Apixaban 2.5 Mg Tablet, 2.5 MG PO BID, #60 Ref 3 Prescribed by: CRISS FOSTER on 11/23/17 1126 Atorvastatin Calcium 40 Mg Tablet, 40 MG PO HS, (Reported) Betamethasone/Propylene Glyc 15 Gm Cream..g., TOP BID, (Reported) Bethanechol Chloride 25 Mg Tablet, 25 MG PO QID, (Reported) Digoxin 125 Mcg Tablet, 125 MCG PO DAILY, (Reported) Diltiazem HCl 360 Mg Capsule.er, 360 MG PO DAILY, (Reported) Iron,Carbonyl/Vit C/Vit B12/FA 1 Each Tablet, 1 EACH PO DAILY, #30 Prescribed by: CRISS FOSTER on 11/23/17 1126 Ketoconazole 120 Ml Shampoo, TOP DAILY, (Reported) Ketoconazole 15 Gm Cream..g., TOP BID, (Reported) Losartan Potassium 50 Mg Tablet, 50 MG PO DAILY, (Reported) Metformin HCl 500 Mg Tablet, 500 MG PO DAILY, (Reported) Metoprolol Succinate 25 Mg Tab.er.24h, 25 MG PO HS, (Reported) Pantoprazole Sodium 40 Mg Tablet.dr, 40 MG PO DAILY, #90 Prescribed by: KRISTEN ZHANG on 11/23/17 1049 Sucralfate 1 Gm Tablet, 1 GM PO QID, #120 Prescribed by: KRISTEN ZHANG on 11/23/17 1049 Constitutional: see HPI EENTM: no symptoms reported Respiratory: no symptoms reported Cardiovascular: no symptoms reported Gastrointestinal: no symptoms reported Genitourinary: no symptoms reported Musculoskeletal: no symptoms reported Skin: see HPI Psychiatric/Neurological: No Symptoms Reported Past Ydpmjwt-Qghbqf-Ulpcih Hx Patient Social History Alcohol Use: Denies Use Recreational Drug Use: No Smoking Status: Never a Smoker Former Smoker, Quit: Jul 26, 1984 Recent Foreign Travel: No Contact w/Someone Who Travel: No Recent Infectious Disease Expo: No Recent Hopitalizations: No Physical Abuse: No Sexual Abuse: No Immunizations Up To Date Tetanus Booster (TDap): Unknown Date of Pneumonia Vaccine: Jul 27, 2013 Date of Influenza Vaccine: Jul 16, 2017 Seasonal Allergies Seasonal Allergies: Yes Surgeries History of Surgeries: Yes (ESPHAGAS SURG, HERNIA,R SHOULDER, BACK) Surgeries: Neurological, Orthopedic Respiratory History of Respiratory Disorde: Yes Respiratory Disorders: Pneumonia Currently Using CPAP: No Currently Using BIPAP: No Cardiovascular History of Cardiac Disorders: Yes (PAROXYSMAL A FIB) Cardiac Disorders: Atrial Fibrillation, Coronary Artery Disease, High Cholesterol, Hypertension, Valvular Heart Disease Neurological History of Neurological Disord: Yes (DYSPHAGIA HX) Reproductive System Hx Reproductive Disorders: No Sexually Transmitted Disease: No HIV/AIDS: No Genitourinary History of Genitourinary Disor: No Genitourinary Disorders: Benign Prostatic Hyperpl Gastrointestinal History of Gastrointestinal Di: Yes Gastrointestinal Disorders: Gastroesophageal Reflux, Diverticulosis Musculoskeletal History of Musculoskeletal Dis: Yes (ORTHO SURGERY) Musculoskeletal Disorders: Arthritis, Chronic Back Pain Endocrine History of Endocrine Disorders: Yes (DM TYPE II) Endocrine Disorders: Diabetes, Non-Insulin dep HEENT History of HEENT Disorders: Yes HEENT Disorders: Cataract Loss of Vision: Denies Hearing Impairment: Denies Cancer History of Cancer: No Psychosocial History of Psychiatric Problem: No Suicide Risk Score: 0 Integumentary History of Skin or Integumenta: No Blood Transfusions History of Blood Disorders: Yes (NEW ANEMIA) Adverse Reaction to a Blood Tr: No Family Medical History Family Medial History: FH: liver disease 19 MOTHER FH: lung cancer 19 FATHER Physical Exam Vital Signs Vital Sign - Last 12Hours 11/28/17 15:03 Temp 95.4 Pulse 73 Resp 18 B/P (MAP) 137/53 (81) Pulse Ox 97 O2 Delivery Room Air Capillary Refill : Less Than 3 Seconds General Appearance: No Apparent Distress, WD/WN HEENT: PERRL/EOMI, Normal ENT Inspection Neck: Normal Inspection Respiratory: Lungs Clear, Normal Breath Sounds, No Accessory Muscle Use, No Respiratory Distress Cardiovascular: Regular Rate, Rhythm, No Edema, No Murmur Gastrointestinal: Normal Bowel Sounds, Non Tender, Soft Extremity: Normal Inspection, No Pedal Edema Neurologic/Psychiatric: Alert, Oriented x3, No Motor/Sensory Deficits, 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, 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 as Tested Skin: Normal Color, Warm/Dry, Other (back is sweaty) Progress/Results/Core Measures Suspected Sepsis Recent Fever Within 48 Hours: No Infection Criteria Present: Suspected New Infection New/Unexplained Altered Menta: No Sepsis Screen: No Definite Risk Sepsis Diagnosis: SIRS Temperature:95.4 Pulse: 73 Respiratory Rate: 18 Blood Pressure 137 /53 Mean: 81 Results/Orders My Orders Orders - PRASHANTH AMOS MD Ekg Tracing (11/28/17 16:12) Vital Signs/I&O Vital Sign - Last 12Hours 11/28/17 11/28/17 15:03 16:14 Temp 95.4 95.4 Pulse 73 73 Resp 18 18 B/P (MAP) 137/53 (81) Pulse Ox 97 97 O2 Delivery Room Air Capillary Refill : Less Than 3 Seconds Blood Pressure Mean: 81 Progress Note : Progress Note Patient's temperature was checked multiple times in the ER. He was afebrile and feeling better. Workup was offered but he does not feel it is necessary now that he is feeling better and afebrile. Departure Impression Impression: Primary Impression: Chills Disposition: 01 HOME, SELF-CARE Condition: Improved Departure-Patient Inst. Referrals: ALBARO BRADFORD DO (PCP/Family) Primary Care Physician Add. Discharge Instructions: Return to care if symptoms worsen. Follow-up with your doctor as in the next week or two. All discharge instructions reviewed with patient and/or family. Voiced understanding. PRASHANTH AMOS MD Nov 28, 2017 16:09
[2017-11-28 16:14] VITALS: BP 137/53
== END 2017-11-28 16:13 | disposition home or self-care (01) ==
LOC: EDUNIT# 14:47 → ER 14:49
DX: R68.83 Chills (without fever) (principal); E11.9 Type 2 diabetes mellitus without complications; D64.9 Anemia, unspecified; K21.9 Gastro-esophageal reflux disease without esophagitis; I48.0 Paroxysmal atrial fibrillation; I25.10 Atherosclerotic heart disease of native coronary artery without angina pectoris; I10 Essential (primary) hypertension; Z87.01 Personal history of pneumonia (recurrent); Z87.891 Personal history of nicotine dependence; Z79.84 Long term (current) use of oral hypoglycemic drugs; Z98.890 Other specified postprocedural states

== ENCOUNTER → 2017-12-17 | Outpatient (CLI) | payer MEDICARE, OTHER ==
[~2017-12-17] VITALS: Ht 170.2 cm; Wt 63.5 kg
[~2017-12-17] MED LIST changes: +CATHETER FLUSH 10 ML SYR IV PRN; +REGADENOSON 0.4 MG/5 ML SYR (LEXISCAN) IV ONE
[2017-12-17 09:46] VITALS: BP 150/60
--- NOTE | 2017-12-17 15:31 | STRESS TEST ---
DATE OF SERVICE: 12/17/2017 LEXISCAN MYOVIEW STRESS REST REFERRING PHYSICIAN: Dr. Shyam Potter. Baseline heart rate is 76. Baseline blood pressure is 159/72. Baseline EKG is sinus rhythm with no ischemic changes. In summary, the patient was injected with 10.64 mCi of technetium-99 Myoview and the resting images were obtained. Then, the patient received 0.4 mg of Lexiscan followed by 30.1 mCi of technetium-99 Myoview. Throughout the test, there were no EKG changes. The resting and stress images were reviewed and compared in the short axis, horizontal long axis, and vertical long axis views. Review of the images showed extracardiac attenuation with the increase gastric uptake and diaphragmatic attenuation, no significant ischemia or infarction was seen. SSS is 2, SDS 2, TID value 0.93. On the gated images, the left ventricle appeared to be normal size with normal contractility. Calculated ejection fraction is 75%. CONCLUSION: 1. The patient tolerated the Lexiscan well. 2. Extracardiac attenuation with no significant ischemia or infarction or SPECT images. 3. Normal left ventricular size with normal contractility. Calculated ejection fraction is 75%. Job ID: [id number] DocumentID: [id number] Dictated Date: 12/17/2017 13:58:09 Powder Nipper Date: 12/17/2017 15:31:27 Dictated By: CRISS FOSTER MD
== END ==
LOC: CARD 07:30
PROVIDERS: ATTEND Internal Medicine Cardiovascular Disease
DX: I48.0 Paroxysmal atrial fibrillation (principal); I11.9 Hypertensive heart disease without heart failure
CPT/HCPCS: 78452; 93017

== ENCOUNTER 2019-06-22 09:30 | Outpatient (CLI) | payer MEDICARE, OTHER ==
[~2019-06-22] VITALS: Ht 170.2 cm; Wt 63.5 kg
[~2019-06-22 09:30] MED LIST changes: -AMLO10TA2 PO; +AMLO10TA7 PO; -CATHETER FLUSH 10 ML SYR IV PRN; -KETO120S11 TOP; +KETO120S2 TOP; -LOSA50TA36 PO; +LOSA50TA63 PO; +METF-397 PO; -METF500T4 PO; -OMEP20CA12 PO; +OMEP20CA13 PO; -REGADENOSON 0.4 MG/5 ML SYR (LEXISCAN) IV ONE; -VALS320T14 PO; +VALS320T15 PO
[2019-06-22] MEDS ORDERED: LOSA25TA41 PO (09:59)
[2019-06-22] MEDS ORDERED: BETH25TA11 PO (09:59)
== END 2019-06-22 11:06 | disposition home or self-care (01) ==
LOC: PREOP 09:30
PROVIDERS: ATTEND Surgery
DX: Z01.818 Encounter for other preprocedural examination (principal); Z12.11 Encounter for screening for malignant neoplasm of colon; Z86.010 Personal history of colon polyps

== ENCOUNTER 2019-06-23 09:38 | Day surgery (SDC) | payer MEDICARE, OTHER ==
[2019-06-23] VITALS (15 sets, daily range): BP systolic 123–199; BP diastolic 59–84
[~2019-06-23] VITALS: Ht 170.2 cm; Wt 63.5 kg
[~2019-06-23 09:38] MED LIST changes: +BETH25TA11 PO; +LOSA25TA41 PO
[2019-06-23] MEDS ORDERED: NS IV 500 ML 500 ML ONE (09:46)
[2019-06-23] MEDS ORDERED: NS IV 500 ML 500 ML IV PRN (09:46)
--- NOTE | 2019-06-23 09:59 | Conscious Sedation/ASA ---
Conscious Sedation Pre-Proced Time 09:45 ASA Score 2 For ASA 3 and 4: Consider anesthesia and medical clearance. Also, for patients with a history of failed moderate sedation consider anesthesia. Airway Lungs Heart ASA score ASA 1: a normal healthy patient ASA 2: a patient with a mild systemic disease (mid diabetes, controlled hypertension, obesity ASA 3: a patient with a severe systemic disease that limits activity (angina, COPD, prior Myocardial infarction) ASA 4: a patient with an incapacitating disease that is a constant threat to life (CHF, renal failure) ASA 5: a moribund patient not expected to survive 24 hrs. (ruptured aneurysm) ASA 6: a declared brain- patient whose organs are being harvested. For emergent operations, add the letter E after the classification Mallampati Classification Grade 2 Sedation Plan Analgesia, Amnesia, Plan communicated to team members, Discussed options with patient/fam, Discussed risks with patient/fam The patient is an appropriate candidate to undergo the planned procedure, sedation, and anesthesia. The patient immediately re-assessed prior to indication. KRISTEN ZHANG MD Jun 23, 2019 09:59
[2019-06-23] MEDS ORDERED: morphine INJ 10 MG/ML 1ML (SYR OR VIAL) IVP PRN ×2 (10:00)
[2019-06-23] MEDS ORDERED: LIDOCAINE JELLY 2% 6 ML SYRINGE MM PRN (10:00)
[2019-06-23] MEDS ORDERED: MIDAZOLAM 2 MG/2 ML (VERSED) VIAL IVP ONE (10:00)
[2019-06-23] MEDS ORDERED: HYDROcodone/APAP 5 MG/325 MG (LORTAB) TAB PO PRN (10:00)
[2019-06-23] MEDS ORDERED: ACETAMINOPHEN 325 MG TABLET PO PRN (10:00)
[2019-06-23] MEDS ORDERED: ONDANSETRON 4 MG/2 ML (SDV) Z0FRAN IVP PRN (10:00)
[2019-06-23] MEDS ORDERED: fentaNYL INJECTION 100 MCG/2 ML AMP IVP ONE (10:00)
--- NOTE | 2019-06-23 10:00 | Progress Note-Pre Operative ---
Pre-Operative Progress Note H&P Reviewed The H&P was reviewed, patient examined and no changes noted. Date Seen by Provider: Jun 23, 2019 Time Seen by Provider: 09:45 Date H&P Reviewed: Jun 23, 2019 Time H&P Reviewed: 09:45 Pre-Operative Diagnosis: screening KRISTEN Santiago MD Jun 23, 2019 10:00
--- NOTE | 2019-06-23 10:02 | Discharge Inst-Surgical ---
D/C Lap Instructions-LEATHA Follow Up Activity as tolerated High Fiber Diet 25g or more per day Avoid Alcohol, Caffeine, Spicy [place] and Acid foods. Drink 64 fluid oz or more of fluids per day. Symptoms to Report: Fever over 101 degree F, Nausea/Vomiting If any problems/questions: Contact your physician or go to Emergency Room KRISTEN ZHANG MD Jun 23, 2019 10:02
[2019-06-23] MEDS ORDERED: LIDOCAINE JELLY 2% 6 ML SYRINGE ONE (10:15)
[2019-06-23] MEDS ORDERED: fentaNYL INJECTION 100 MCG/2 ML AMP ONE (10:15)
[2019-06-23] MEDS ORDERED: MIDAZOLAM 2 MG/2 ML (VERSED) VIAL ONE ×4 (10:16)
--- NOTE | 2019-06-23 13:02 | Progress Note-Post Operative ---
Post-Operative Progess Note Surgeon (s)/Stamp Pad Finisher (s) Surgeon KRISTEN ZHANG MD Stamp Pad Finisher: none Pre-Operative Diagnosis screening colo Post-Operative Diagnosis mild chronic stage 2 ext and int hemorrhoids Procedure & Operative Findings Date of Procedure 06/23/19 Procedure Performed/Findings colonoscopy Anesthesia Type cs Estimated Blood Loss Estimated blood loss (mL): minimal Specimens/Packing Specimens Removed none KRISTEN ZHANG MD Jun 23, 2019 13:02
--- NOTE | 2019-06-23 16:17 | OPERATIVE REPORT ---
DATE OF SERVICE: 06/23/2019 ATTENDING PRIMARY CARE PHYSICIAN: Dr. Howe. PREOPERATIVE DIAGNOSIS: Screening colonoscopy. POSTOPERATIVE DIAGNOSES: Mild chronic stage II external and internal hemorrhoids. Remainder of the colon and rectum were normal. PROCEDURE: Colonoscopy. SURGEON: Kristen Zhang MD. ANESTHESIA: Conscious sedation. ESTIMATED BLOOD LOSS: Minimal. FINDINGS: Mild chronic stage II external and internal hemorrhoids. Remainder of the colon and rectum were normal. DISPOSITION: The patient tolerated the procedure well. INDICATION: The patient is an 83-year-old male in need of a screening colonoscopy. His last colonoscopy was in 2007 and believes this to be normal. He also has a history of a Zenker's diverticulum, underwent a diverticulectomy approximately 2 years ago in [facility]. He does not report any issues with reflux or dysphagia. DESCRIPTION OF PROCEDURE: The patient was brought to the endoscopy suite, laid in the left decubitus position. After adequate IV pain and sedative medications and conscious sedation anesthesia, a digital rectal examination was performed. Mild chronic stage II external and internal hemorrhoids were identified, which were not actively edematous nor inflamed and no bleeding. Normal sphincter tone was felt and there were no palpable masses. Prostate gland was palpable and appeared normal. The endoscope was then intubated to the anus and rectum gently insufflated. The endoscope was then advanced through the valves of Hong of the rectum with no polyps or any neoplasms identified. The endoscope was then advanced through the sigmoid colon where no diverticulosis identified. We then proceeded through the remainder of the descending, transverse and ascending colon to the cecum. These segments were normal. There were no polyps or any neoplasms identified throughout the colon or rectum. The endoscope was then slowly withdrawn while taking a second look and suctioning of residual air with no additional findings. The patient tolerated the procedure well. We will recommend continued medical management with a high fiber diet with at least 30 grams of fiber daily as well as significant amounts of water to promote soft stools on a daily basis. He does not need another colonoscopy for another 10 years. Job ID: [id number] DocumentID: [id number] Dictated Date: 06/23/2019 11:30:13 Overlock Elastic Attacher Date: 06/23/2019 16:16:55 Dictated By: KRISTEN ZHANG MD [facility]
== END 2019-06-23 12:15 | disposition home or self-care (01) ==
LOC: ENDO 09:38
PROVIDERS: ATTEND Surgery
DX: Z12.11 Encounter for screening for malignant neoplasm of colon (principal); K64.1 Second degree hemorrhoids; K64.8 Other hemorrhoids; K21.9 Gastro-esophageal reflux disease without esophagitis; E11.9 Type 2 diabetes mellitus without complications; I10 Essential (primary) hypertension; I25.10 Atherosclerotic heart disease of native coronary artery without angina pectoris; I48.91 Unspecified atrial fibrillation; Z86.010 Personal history of colon polyps; Z87.19 Personal history of other diseases of the digestive system; Z79.82 Long term (current) use of aspirin; Z79.01 Long term (current) use of anticoagulants; Z79.84 Long term (current) use of oral hypoglycemic drugs; Z79.899 Other long term (current) drug therapy

== ENCOUNTER → 2020-03-10 | Outpatient (CLI) | payer MEDICARE, OTHER ==
[~2020-03-10] MED LIST changes: -ALFU10TA11 PO; +ALFU10TA12 PO; +BETA15CR14 TOP; -BETA15CR37 TOP; +CATHETER FLUSH 10 ML SYR IV PRN; -DIGO125T PO; +DIGO125T3 PO; -DILT240C PO; +DILT240C91 PO; +HOLD METFORMIN - RECEIVED CONTRAST 20 ML VIAL IV SCH; +IOHEXOL 350 MG/ML 100 ML (OMNIPAQUE 350) VIAL IV ONE; +METF-865 PO; -METF500T8 PO; -METO-370 PO; -METO-387 PO; +METO50TA7 PO; +MTP25TSR PO; +NS 100 ML (IVPB) BAG IV ONE; -OMEP20CA13 PO; +OMEP20CA18 PO; +OMEP40CA27 PO; -OMEP40CA36 PO
[2020-03-10 09:41] LABS: BUN/CREATININE RATIO 12; CREATININE SERUM 0.91 MG/DL (0.60-1.30); GFR ESTIMATED > 60
--- NOTE | 2020-03-10 12:35 | Diagnostic Imaging Report ---
Clinical indication: Patient states no complaints. 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 Exams: 1: Head CT with and without IV contrast. Auto Exposure Controls were utilized during the CT exam to meet ALARA standards for radiation dose reduction. 2: CT angiogram of the head and neck performed with 75 cc of Omnipaque 350 IV contrast. Sagittal and coronal MIP reformations were created for better visualization of vascular anatomy. Comparison: CT scan of the neck with contrast dated 08/05/2017. Findings: Head CT: There is no abnormal IV contrast enhancement. Diffuse brain parenchymal volume loss again seen. There is progression of patchy confluent areas of low-attenuation white matter changes seen throughout posterior bilateral hemispheres and periventricular regions. There is no evidence of intracranial hemorrhage, brain herniation midline shift. There is no CT evidence of acute cerebral infarct. There is no hydrocephalus. Basal cisterns are unremarkable. Extra cranial soft tissues, skull, and orbits are unremarkable. There is moderate mucosal thickening involving ethmoid sinus. Mastoid air cells are clear CT ANGIOGRAM: There is dense contrast bolus within the right subclavian vein streak artifact obscuring portions of the right subclavian artery. The right subclavian artery and brachiocephalic artery are patent. There is short segment area mild stenosis involving the proximal left subclavian artery seen just prior to the left vertebral artery takeoff. The remainder of the left subclavian artery is patent. There is dense atherosclerotic disease involving the right common carotid artery bifurcation, proximal cervical right ICA and right ECA region. There is mild narrowing of the right ECA and mild to moderate narrowing of the proximal right ICA bulb. Remainder of the cervical right ICA is patent. The right common carotid artery is patent. The left common carotid artery is patent. There is 50-60% stenosis involving the proximal and mid cervical left ICA due to atherosclerotic disease. The remainder of the cervical left ICA is patent. There is moderate narrowing involving the supraclinoid right ICA and mild to moderate narrowing involving the cavernous and paraclinoid aspect of the left ICA. The bilateral petrous and cavernous ICA are otherwise patent. There is dense atherosclerotic disease involving the origin of the cervical right vertebral artery with moderate to severe stenosis. The remainder of the cervical right vertebral artery is patent. There is a mild narrowing involving the cervical left vertebral artery, but is patent. There is areas of moderate narrowing involving the intradural right vertebral artery. There is mild narrowing of the intradural left vertebral artery. The basilar artery, bilateral superior cerebellar artery, and right RELEASE OF INFORMATION SPECIALIST are patent. left RELEASE OF INFORMATION SPECIALIST is noted and patent. The bilateral ACAs and MCAs and their distal branches are patent. Dural venous sinus is patent. Emphysematous lung disease is seen. Stable 9 mm x 15 mm amorphous circumscribed apparent low-density area involving the right palatine tonsillar region with adjacent peripheral enhancement. Is no adjacent fat stranding. There is no neck lymphadenopathy. The neck soft tissue tissue structures show no other significant abnormality. There is medialization of the right carotid artery. There is cervical spine degenerative disease with vertebral body spurs and facet arthropathy. There is severe bilateral C3-C7 bilateral neural foramen narrowing due to uncinate spurs and posterior spurs. There is at least moderate central canal narrowing at the C6-C7 level. There is at least mild to moderate central canal narrowing at the C5-C6 level. IMPRESSION: 1: There is no definite CT evidence of interval acute cerebral infarction, intracranial hemorrhage, or mass seen. Given the diffuse low attenuation changes throughout the brain parenchyma which can obscure more subtle findings, if there is clinical concern for acute cerebral infarction, MRI of the brain would better evaluate. 2: There is progression of diffuse patchy areas of low-attenuation white matter changes involving both cerebral hemispheres is may be related to chronic small vessel ischemic disease. 3: CT angiogram of the head and neck shows no large vessel occlusion seen, aneurysm, or dissection. 4: There is moderate stenosis involving the proximal to mid cervical left ICA. 5: There is moderate to severe stenosis involving the origin of the cervical right vertebral artery. 6: There is moderate stenosis involving the intradural right vertebral artery. 7: Stable 9 mm x 15 mm lobulated low-density area of peripheral enhancement involving the expected region of the right palatine tonsil. This may represent a mucous retention cyst. Dictated by: Dictated on workstation # [id number]
== END ==
LOC: RAD 09:04
PROVIDERS: ATTEND Nurse Practitioner
DX: I65.23 Occlusion and stenosis of bilateral carotid arteries (principal); I63.9 Cerebral infarction, unspecified; I65.01 Occlusion and stenosis of right vertebral artery; R90.82 White matter disease, unspecified
CPT/HCPCS: 36415; 70496; 70498; 82565; 84520

== ENCOUNTER → 2020-04-21 | Outpatient (CLI) | payer MEDICARE, OTHER ==
[~2020-04-21] MED LIST changes: -CATHETER FLUSH 10 ML SYR IV PRN; -HOLD METFORMIN - RECEIVED CONTRAST 20 ML VIAL IV SCH; -IOHEXOL 350 MG/ML 100 ML (OMNIPAQUE 350) VIAL IV ONE; +KETO120S13 TOP; -KETO120S2 TOP; -NS 100 ML (IVPB) BAG IV ONE
--- NOTE | 2020-04-21 18:03 | Diagnostic Imaging Report ---
PROCEDURE: MRI lumbar spine. TECHNIQUE: Multiplanar, multisequence MRI of the lumbar spine was performed without contrast. DATE: April 21, 2020. COMPARISON: Lumbar spine radiographs October 23, 2008. INDICATION: 84-year-old male, increasing back pain. Radiculopathy. FINDINGS: There is a lumbar levocurvature. There is no evidence of a diffuse marrow infiltrating or replacing process. There is a chronic compression deformity of L1 with roughly 25% height loss anteriorly. There is no acute compression fracture or other acute fracture. There is no focal concerning bone lesion. The visualized cord and conus medullaris is unremarkable and terminates at the L2 level. There are degenerative changes of the lower thoracic spine. There is mild to moderate disc height loss at L3-L4. There is moderate to severe disc height loss at L4-L5 and L5-S1. L1-L2: There is mild diffuse disc bulge eccentric to the right. There is mild narrowing of the right lateral recess. The facet joints and ligamentum flavum are unremarkable. There is no foraminal narrowing. There is no spinal canal stenosis. L2-L3: There is very mild diffuse disc bulge. There are mild right greater than left facet degenerative changes. There is no foraminal narrowing. There is no spinal canal stenosis. L3-L4: There is diffuse disc bulge. There are advanced facet degenerative changes with ligamentum flavum hypertrophy. There is moderate narrowing of both lateral recesses. There is moderate to severe right and mild to moderate left foraminal narrowing. There is mild to moderate spinal canal stenosis. L4-L5: There is diffuse disc bulge. There are mild facet degenerative changes. There is moderate to severe right lateral recess narrowing and mild narrowing of the left lateral recess. There is severe right and moderate left foraminal narrowing. There is mild spinal canal stenosis. L5-S1: There is diffuse disc bulge eccentric to the left. There are mild bilateral facet degenerative changes without prominent ligamentum flavum hypertrophy. There is moderate right and severe left foraminal narrowing. There is mild right lateral recess narrowing and severe left lateral recess narrowing. There is no high-grade spinal canal stenosis. There is a T2 hypointense right renal lesion, measuring 13 mm in size which is not well characterized on this exam. There are also additional T2 hyperintense renal lesions not well characterized on this exam. IMPRESSION: 1. Lumbar levocurvature. 2. Multilevel advanced disc and facet degenerative changes of the thoracolumbar spine, as described in detail level by level above. Dictated by: Dictated on workstation # [id number]
== END ==
LOC: RAD 14:56
PROVIDERS: ATTEND Physical Medicine & Rehabilitation
DX: M51.17 Intervertebral disc disorders with radiculopathy, lumbosacral region (principal); M47.815 Spondylosis without myelopathy or radiculopathy, thoracolumbar region; M47.817 Spondylosis without myelopathy or radiculopathy, lumbosacral region; M48.07 Spinal stenosis, lumbosacral region; M41.86 Other forms of scoliosis, lumbar region; N28.9 Disorder of kidney and ureter, unspecified
CPT/HCPCS: 72148

== ENCOUNTER → 2020-05-30 | Outpatient (CLI) | payer MEDICARE, OTHER ==
--- NOTE | 2020-05-30 10:29 | Diagnostic Imaging Report ---
INDICATION: Shortness of breath. Cough. Comparison with 10/22/2017 chest. FINDINGS: Obstructive interstitial lung disease is again noted. New densities have developed in the right lower lung as well as in the left perihilar region. The heart remains enlarged. No evidence of pulmonary edema. No pneumothorax or pleural effusion. No bony lesion. IMPRESSION: 1. New densities have developed in the right lower lung and left perihilar region. This may represent round pneumonia though underlying masses are of concern. Would consider CT scan of the chest. 2. Rather severe obstructive interstitial lung disease with cardiomegaly again noted. Dictated by: Dictated on workstation # [id number]
== END ==
LOC: RAD 09:49
PROVIDERS: ATTEND Family Medicine
DX: R91.8 Other nonspecific abnormal finding of lung field (principal); J84.9 Interstitial pulmonary disease, unspecified; I51.7 Cardiomegaly
CPT/HCPCS: 71046

== ENCOUNTER → 2020-05-31 | Outpatient (CLI) | payer MEDICARE, OTHER ==
[~2020-05-31] MED LIST changes: +HOLD METFORMIN - RECEIVED CONTRAST 20 ML VIAL IV SCH; +IOHEXOL 350 MG/ML 100 ML (OMNIPAQUE 350) VIAL IV ONE; +NS 100 ML (IVPB) BAG IV ONE
[2020-05-31 09:50] LABS: BUN/CREATININE RATIO 12; CREATININE SERUM 0.84 MG/DL (0.60-1.30); GFR ESTIMATED > 60
== END ==
LOC: LAB 09:09
PROVIDERS: ATTEND Family Medicine
DX: N28.9 Disorder of kidney and ureter, unspecified (principal)
CPT/HCPCS: 36415; 82565; 84520

== ENCOUNTER → 2020-05-31 | Outpatient (CLI) | payer MEDICARE, OTHER ==
--- NOTE | 2020-05-31 17:24 | Diagnostic Imaging Report ---
PROCEDURE: CT chest with contrast only. TECHNIQUE: Multiple contiguous axial images were obtained through the chest after administration of intravenous contrast. Auto Exposure Controls were utilized during the CT exam to meet ALARA standards for radiation dose reduction. INDICATION: Cough. COMPARISON: 08/05/2017. FINDINGS: Evaluation of the lung jesus demonstrates advanced emphysematous disease bilaterally. There is also advanced bronchiectatic change. There are geographic areas of alveolar-appearing consolidation with some surrounding groundglass density. This is greatest involving the lingula of the left upper lobe as well as the posteroinferior margins of the right upper lobe. Subpleural nonspecific groundglass density is also identified involving the base of the lateral segment of the right middle lobe. Within the area of concern in the lingula on the left, there is ellipsoid nodular-appearing density that measures 1.6 x 2.3 cm and shows central lucency suggestive of central cavitation. Underlying malignancy is of concern. There is no large effusion or pneumothorax. Cardiomediastinal structures show mild cardiomegaly. There is no large pericardial effusion. There is advanced calcified coronary and aortic atherosclerosis. Note is also made of bulky calcifications of the mitral valve. Multiple mildly prominent mediastinal lymph nodes are also present. Largest of these is seen inferior to the azygos vein on the right and measures 1.6 x 1 cm (image 68, series 2). Minimally prominent right hilar lymph node is also seen and measures 1.8 x 1.1 cm. No abnormal axillary adenopathy is seen. Osseous structures show age-related degenerative changes. No lytic or blastic bony lesions are seen. Included portions of the upper abdomen are unremarkable. IMPRESSION: 1. Geographic areas of consolidation with surrounding groundglass density involving the bilateral upper lobes. Although appearance may be on the basis of bacterial pneumonia, viral pneumonia such as can be seen with COVID should be within the differential until proven otherwise. 2. Findings suspicious for cavitary lesion epicentered within the area of infiltrate of the left upper lobe. Follow-up CT chest after resolution of patient's acute illness is recommended. 3. Background advanced emphysematous disease with advanced bronchiectasis. 4. Mild mediastinal adenopathy; possibly reactive. 5. Advanced calcified aortic and coronary atherosclerosis with bulky calcifications of the mitral valve. Dictated by: Dictated on workstation # [id number]
== END ==
LOC: RAD 11:00
PROVIDERS: ATTEND Family Medicine
DX: J18.1 Lobar pneumonia, unspecified organism (principal); J43.9 Emphysema, unspecified; J47.9 Bronchiectasis, uncomplicated; I25.10 Atherosclerotic heart disease of native coronary artery without angina pectoris; R59.1 Generalized enlarged lymph nodes
CPT/HCPCS: 71260

== ENCOUNTER → 2020-06-08 | Outpatient (CLI) | payer MEDICARE, OTHER ==
[~2020-06-08] MED LIST changes: -HOLD METFORMIN - RECEIVED CONTRAST 20 ML VIAL IV SCH; -IOHEXOL 350 MG/ML 100 ML (OMNIPAQUE 350) VIAL IV ONE; -NS 100 ML (IVPB) BAG IV ONE
--- NOTE | 2020-06-08 10:52 | Diagnostic Imaging Report ---
Indication: Lower respiratory infection PA and lateral chest There are emphysematous changes in the lungs. There is interstitial thickening. There are patchy areas of alveolar consolidation in the right lower lung and in the perihilar region of the left lung base which have improved since a 05/30/2020. There are no effusions or pneumothoraces. Impression: COPD with interstitial fibrosis. There are improving bilateral perihilar infiltrates. Dictated by: Dictated on workstation # [id number]
== END ==
LOC: RAD 10:35
PROVIDERS: ATTEND Family Medicine
DX: J18.9 Pneumonia, unspecified organism (principal); J44.9 Chronic obstructive pulmonary disease, unspecified; J84.10 Pulmonary fibrosis, unspecified
CPT/HCPCS: 71046

== ENCOUNTER 2020-06-19 05:38 | Outpatient (RCR) | payer MEDICARE, OTHER ==
[~2020-06-19] VITALS: Ht 167 cm; Wt 59.0 kg
== END 2020-06-19 14:57 | disposition home or self-care (01) ==
LOC: PREOP 05:38
PROVIDERS: ATTEND Internal Medicine Critical Care Medicine
DX: Z01.818 Encounter for other preprocedural examination (principal); Z20.828 Contact with and (suspected) exposure to other viral communicable diseases
CPT/HCPCS: 87635

== ENCOUNTER 2020-06-21 07:22 | Day surgery (SDC) | payer MEDICARE, OTHER ==
[2020-06-21] VITALS (12 sets, daily range): BP systolic 93–139; BP diastolic 62–94
[~2020-06-21] VITALS: Ht 167 cm; Wt 59.0 kg
[2020-06-21] MEDS ORDERED: LIDOCAINE JELLY 2% 6 ML SYRINGE TOP ONE (07:23)
[2020-06-21] MEDS ORDERED: LIDOCAINE PF 1% 2 ML VIAL IJ ONE (07:23)
[2020-06-21] MEDS ORDERED: LIDOCAINE PF 2% 5 ML (XYLOCAINE) VIAL INJ ONE (07:23)
[2020-06-21] MEDS ORDERED: LACTATED RINGERS 1,000 ML IV STA ×2 (07:28→07:35)
[2020-06-21] MEDS ORDERED: LACTATED RINGERS 1,000 ML IV ONE (07:28)
[2020-06-21] MEDS ORDERED: fentaNYL INJECTION 100 MCG/2 ML AMP IVP ONE (07:45)
[2020-06-21] MEDS ORDERED: fentaNYL INJECTION 100 MCG/2 ML AMP ONE ×2 (08:35)
[2020-06-21] MEDS ORDERED: MIDAZOLAM 5 MG/5 ML (VERSED) VIAL ONE ×2 (08:36)
[2020-06-21] MEDS: MIDAZOLAM 5 MG/5 ML (VERSED) VIAL IV PRN ×2 (09:24→09:25)
[2020-06-21] MEDS ORDERED: meTOprolol 5 MG/5 ML (LOPRESSOR) VIAL ONE (09:27)
--- NOTE | 2020-06-21 09:58 | Pulmonary Procedures ---
Pulmonary Procedures Date of Procedure Date of Service: Jun 21, 2020 Bronch Bronchoscopy with JUS bronchoalveolar lavage (BAL), transbronchial washes and brush of annette. Preop DX ILD Postop DX: same Complications: none After informed consent obtained and formal time out pt was sedated using Fentanyl and Versed. Bronchoscope was advanced through the nare and vocal cords. 1% lidocaine was used to anesthetize vocal cords, epiglottis, annette, and left/right main stem bronchus. An anatomical tour was undertaken down to the segmental bronchi bilaterally. No endobronchial lesions noted. Bronchoscopy with JUS bronchoalveolar lavage (BAL), transbronchial washes and brush of annette. . Pt tolerated procedure well. No complications noted. Stat CXR is pending. BRITTANY BARRIOS DO Jun 21, 2020 09:58
[2020-06-21] MEDS ORDERED: meTOprolol 5 MG/5 ML (LOPRESSOR) VIAL IV ONE (10:15)
--- NOTE | 2020-06-21 10:39 | Diagnostic Imaging Report ---
INDICATION: Status post bronchoscopy. TIME OF EXAM: 10:10 a.m. COMPARISON: Correlation is made with prior chest from 06/08/2020. FINDINGS: Heart size is normal. There are interstitial changes throughout both lungs. There may be some infiltrate in the left midlung, increased since prior. No effusion or pneumothorax is seen. IMPRESSION: 1. No evidence of pneumothorax, status post bronchoscopy. 2. Diffuse interstitial changes with probable patchy airspace infiltrate in the left midlung. Dictated by: Dictated on workstation # [id number]
--- NOTE | 2020-06-21 10:39 | NUR ---
1020 - PT'S STATED THAT DR BARRIOS SAID FOR PT TO RESUME METOPROLOL UPON RETURNING HOME. REITERATED SAME. Addendum: 06/21/20 at 1040 by CAMILLE GARAY RN Amended: Links added.
--- NOTE | 2020-06-21 10:48 | Diagnostic Imaging Report ---
INDICATION: Bronchoscopy, cough. Intraoperative view obtained with the portable intensifier demonstrates bronchoscope overlying the left hilum. Left perihilar infiltrate is noted. The study is otherwise limited. 2 seconds of fluoroscopy time was used. IMPRESSION: Intraoperative fluoroscopy view demonstrates bronchoscope overlying the left hilum. Left perihilar infiltrate is noted. Dictated by: Dictated on workstation # [id number]
== END 2020-06-21 10:45 | disposition home or self-care (01) ==
LOC: ENDO 07:22
PROVIDERS: ATTEND Internal Medicine Critical Care Medicine
DX: B37.1 Pulmonary candidiasis (principal); J84.9 Interstitial pulmonary disease, unspecified; Z79.01 Long term (current) use of anticoagulants; Z79.899 Other long term (current) drug therapy; Z79.84 Long term (current) use of oral hypoglycemic drugs; I48.0 Paroxysmal atrial fibrillation; I10 Essential (primary) hypertension; E78.2 Mixed hyperlipidemia; E11.9 Type 2 diabetes mellitus without complications; I08.1 Rheumatic disorders of both mitral and tricuspid valves; I65.23 Occlusion and stenosis of bilateral carotid arteries; Z87.891 Personal history of nicotine dependence
CPT/HCPCS: 71045; 76000; 87015; 87070; 87101; 87106; 87116; 87205; 87206; 88112; 88305; 88312; 94640

== ENCOUNTER → 2020-08-25 | Outpatient (CLI) | payer MEDICARE, OTHER ==
[~2020-08-25] MED LIST changes: +AMLO-251 PO; -AMLO10TA7 PO; +ASPI-1238 PO; -ASPI-983 PO; +HOLD METFORMIN - RECEIVED CONTRAST 20 ML VIAL IV SCH; +IOHEXOL 350 MG/ML 100 ML (OMNIPAQUE 350) VIAL IV ONE; +NS 100 ML (IVPB) BAG IV ONE
[2020-08-25 10:11] LABS: BUN/CREATININE RATIO 14; CREATININE SERUM 0.91 MG/DL (0.60-1.30); GFR ESTIMATED > 60
--- NOTE | 2020-08-25 10:51 | Diagnostic Imaging Report ---
PROCEDURE: CT chest with contrast only. TECHNIQUE: Multiple contiguous axial images were obtained through the chest after administration of intravenous contrast. Auto Exposure Controls were utilized during the CT exam to meet ALARA standards for radiation dose reduction. DATE: August 25, 2020. COMPARISON: Chest radiograph June 21, 2020. CT chest May 31, 2020. INDICATION: 85-year-old male, dyspnea. FINDINGS: There are upper lobe predominant findings of centrilobular and paraseptal emphysema. There is mild to moderate multilobar bronchiectasis. There are peripheral reticular lung opacities with a lower lobe predominance. There is groundglass type consolidation in the right upper lobe on axial image 65 and adjacent sequential images as well as on axial image 75 and additional sequential images. These areas of consolidation are unchanged since comparison exam. There is also groundglass consolidation in the left upper lobe which is also unchanged since prior CT chest of May 31, 2020. Additional overall appearance of the lungs is also unchanged in appearance. There is no identified new or enlarging pulmonary nodule. There is no pneumothorax. There is very minimal left pleural fluid. The central airways are patent. The area of cavitary change in the left upper lobe is unchanged since prior CT. There is no identified pulmonary embolus. The main pulmonary artery diameter is within normal limits. There are coronary artery calcifications and additional areas of atherosclerotic disease. Heart is mildly enlarged. There is no pericardial effusion. There is a subcarinal lymph node on axial image 92 measuring 15 mm in short axis which is unchanged. There are subcentimeter short axis hilar, AP window, and additional mediastinal lymph nodes. There is a right paratracheal lymph node measuring 12 mm in short axis which is unchanged since May 31, 2020. There are subcentimeter short axis axillary lymph nodes bilaterally. There are small calcifications in the liver and spleen most compatible with the sequela of prior granulomatous disease. There are multilevel degenerative changes of the spine. There are bilateral advanced glenohumeral arthritic changes. There is no identified acute bony abnormality. IMPRESSION: CT CHEST. 1. Upper lobe predominant findings of centrilobular and paraseptal emphysema. 2. Lower lobe predominant peripheral reticular opacities multiple lobar bronchiectasis which may relate to an interstitial lung disease. NSIP and UIP are both considered. 3. Multifocal areas of groundglass lung consolidation which are unchanged in extent since May 31, 2020. Findings could relate to pneumonitis. Given the stability for over 2 months, infectious etiology or malignancy would be less likely although difficult to completely exclude. 4. Unchanged mediastinal lymph nodes. Dictated by: Dictated on workstation # [id number]
== END ==
LOC: RAD 09:40
PROVIDERS: ATTEND Nurse Practitioner Family
DX: J43.9 Emphysema, unspecified (principal); J47.9 Bronchiectasis, uncomplicated; J18.1 Lobar pneumonia, unspecified organism; R91.8 Other nonspecific abnormal finding of lung field; R59.0 Localized enlarged lymph nodes
CPT/HCPCS: 36415; 71260; 82565; 84520

== ENCOUNTER → 2020-08-31 | Outpatient (CLI) | payer MEDICARE, OTHER ==
[~2020-08-31] MED LIST changes: -HOLD METFORMIN - RECEIVED CONTRAST 20 ML VIAL IV SCH; -IOHEXOL 350 MG/ML 100 ML (OMNIPAQUE 350) VIAL IV ONE; -NS 100 ML (IVPB) BAG IV ONE
== END ==
LOC: LABNPT 06:09
PROVIDERS: ATTEND Physical Medicine & Rehabilitation
DX: Z01.812 Encounter for preprocedural laboratory examination (principal); Z20.828 Contact with and (suspected) exposure to other viral communicable diseases
CPT/HCPCS: 87635

== ENCOUNTER 2020-09-07 10:53 | Inpatient (IN) | payer MEDICARE, OTHER ==
[~2020-09-07] VITALS: Ht 167 cm; Wt 58.7 kg
[2020-09-07 11:19] LABS: BASOPHILS % (AUTO) 0 % (0-10); EOSINOPHILS % (AUTO) 0 % (0-10); HEMATOCRIT 42 % (40-54); HEMOGLOBIN 13.7 g/dL (13.3-17.7); LYMPHOCYTES # (AUTO) 1.1 10^3/uL (1.0-4.0); LYMPHOCYTES % (AUTO) 8 % (12-44); MEAN CORPUSCULAR HEMOGLOBIN 29 pg (25-34); MEAN CORPUSCULAR HGB CONC 33 g/dL (32-36); MEAN CORPUSCULAR VOLUME 88 fL (80-99); MONOCYTES # (AUTO) 1.9 10^3/uL (0.0-1.0); MONOCYTES % (AUTO) 14 % (0-12); NEUTROPHILS # (AUTO) 10.5 10^3/uL (1.8-7.8); NEUTROPHILS % (AUTO) 77 % (42-75); PLATELET COUNT 220 10^3/uL (130-400); WHITE BLOOD COUNT 13.6 10^3/uL (4.3-11.0)
[2020-09-07] MEDS ORDERED: dilTIAZem DRIP PRE-MIX 125 ML IV STA (11:25)
[2020-09-07 11:31] LABS: INR 1.4 (0.8-1.4)
[2020-09-07 11:36] LABS: ALANINE AMINOTRANSFERASE 31 U/L (0-55); ALBUMIN 4.2 GM/DL (3.2-4.5); ALKALINE PHOSPHATASE 75 U/L (40-136); BILIRUBIN,TOTAL 0.8 MG/DL (0.1-1.0); BUN/CREATININE RATIO 27; CALCIUM 9.3 MG/DL (8.5-10.1); CARBON DIOXIDE 23 MMOL/L (21-32); CHLORIDE 101 MMOL/L (98-107); CREATININE SERUM 0.85 MG/DL (0.60-1.30); GFR ESTIMATED > 60; GLUCOSE 89 MG/DL (70-105); SODIUM 136 MMOL/L (135-145); TOTAL PROTEIN 7.1 GM/DL (6.4-8.2)
--- NOTE | 2020-09-07 11:37 | ED Cardiac General ---
History of Present Illness General Chief Complaint: Cardiac/General Problems Stated Complaint: ELEVATED HEART RATE Nursing Triage Note: PT ARRIVES TO ER WITH C/O HIGH HEART FOUND FRIDAY OF THIS WEEK. PT REQUESTING THAT DR DOLAN CALLS DR KRISTIN DENNIS History of Present Illness Date Seen by Provider: Sep 07, 2020 Time Seen by Provider: 11:10 Initial Comments Patient is a 85-year-old male presents for tachycardia, with history of atrial fibrillation. He is on Eliquis 2.5mg, diltiazem 360 mg, metoprolol 50 mg, and digoxin 0.125 mg daily. He takes the diltiazem and digoxin in the morning and takes the metoprolol in the evening. He was started on a prednisone taper approximately [address] Rocha, he is unsure for the reason, he has 2 days left. He sees Dr. Rocha because there was concern over a lesion in his left upper lung. He was tested for COVID-19 on 09/01/2020, he was asymptomatic but having an epidural injection in his lumbar spine that required the testing, the test was negative. He had the epidural injection on 09/04/2020. He does report that his back pain has improved. Denies any loss of smell or taste, no known exposure to COVID-19, wears a mask when out of his home. He denies any palpitations, chest pain, weakness, shortness of air, nausea/vomiting, or other complaints at this time. He was noted to have tachycardia at the time of his visit lumbar injection and referred to Dr. Hobson. He was seen in his office earlier today and referred to the emergency department. Note from Dr. Rocha on 08/29/20, patient was seen for SOA on exertion, moderate. CT chest 08/26/21. He had bronchoscopy on 06/21/[address] showed right upper lobe lesion and mediastinal adenopathy. His follow-up CT showed improvement. He took a course of Augmentin. Patient reports chronic cough, occasional white to clear phlegm. Timing/Duration: intermittent, 3-4 days Activities at Onset: none Prior CP/Workup: no prior chest pain, cardiac cath, echocardiography (2017), stress test (2018) NTG SL CLUB DIRECTOR: No ASA po CLUB DIRECTOR: No Associated Systoms: No Chest Pain, No Cough, No Diaphoresis, No Fever/Chills, No Headaches, No Loss of Appetite, No Malaise, No Nausea/Vomiting, No Shortness of Air, No Syncope, No Weakness Allergies and Home Medications Allergies Coded Allergies: No Known Drug Allergies (Unverified , 06/15/20) Home Medications Albuterol Sulfate 2.5 Mg/3 Ml Vial.neb, 2.5 MG NEB Q6H PRN for SHORTNESS OF BREATH, (Reported) Alfuzosin HCl 10 Mg Tab.er.24h, 10 MG PO 1900, (Reported) Apixaban 2.5 Mg Tablet, 2.5 MG PO BID Prescribed by: CRISS HOBSON on 11/23/17 1126 Atorvastatin Calcium 40 Mg Tablet, 40 MG PO HS, (Reported) Bethanechol Chloride 25 Mg Tablet, 25 MG PO QID, (Reported) Digoxin 125 Mcg Tablet, 125 MCG PO DAILY, (Reported) Diltiazem HCl 360 Mg Capsule.er, 360 MG PO DAILY, (Reported) Losartan Potassium 25 Mg Tablet, 25 MG PO DAILY, (Reported) Metformin HCl 500 Mg Tablet, 500 MG PO DAILY, (Reported) Metoprolol Succinate 25 Mg Tab.er.24h, 25 MG PO HS, (Reported) Pantoprazole Sodium 40 Mg Tablet.dr, 40 MG PO DAILY Prescribed by: KRISTEN ZHANG on 11/23/17 1049 Patient Home Medication List Home Medication List Reviewed: Yes Review of Systems Review of Systems Constitutional: no symptoms reported, see HPI Respiratory: No Symptoms Reported, See HPI; Denies Cough, Denies Shortness of Air, Denies SOA With Exertion, Denies SOA at Rest, Denies Wheezing Cardiovascular: See HPI; Denies Chest Pain, Denies Edema; Irregular Heart Rate; Denies Palpitations, Denies Syncope All Other Systems Reviewed Negative Unless Noted: Yes Past Yoeebpx-Bgbivh-Hiskfq Hx Past Med/Social Hx: Reviewed Nursing Past Med/Soc Hx Patient Social History Alcohol Use: Rarely Uses Recreational Drug Use: No Former Smoker, Quit: Jul 26, 1984 2nd Hand Smoke Exposure: Yes Recent Foreign Travel: No Contact w/Someone Who Travel: No Recent Infectious Disease Expo: No Recent Hopitalizations: No Immunizations Up To Date Tetanus Booster (TDap): Unknown Date of Pneumonia Vaccine: Aug 03, 2018 Date of Influenza Vaccine: Aug 02, 2020 Seasonal Allergies Seasonal Allergies: Yes (RUNNY NOSE) Past Medical History Surgeries: Yes (ESPHAGAS SURG, HERNIA,R SHOULDER, BACK, CATARACTS, CTR) Orthopedic Respiratory: No Pneumonia Currently Using CPAP: No Currently Using BIPAP: No Cardiac: Yes (PAROXYSMAL A FIB) Atrial Fibrillation, Coronary Artery Disease, High Cholesterol, Hypertension, Valvular Heart Disease Neurological: Yes Stroke Reproductive Disorders: No Sexually Transmitted Disease: No HIV/AIDS: No Genitourinary: No Benign Prostatic Hyperpl Gastrointestinal: Yes (HX BLEEDING ULCER) Gastroesophageal Reflux, Diverticulosis, Polyps Musculoskeletal: Yes (ORTHO SURGERY) Arthritis, Chronic Back Pain Endocrine: Yes (DM TYPE II) Diabetes, Non-Insulin dep HEENT: Yes (GLASSES, DENTURES) Cataract Loss of Vision: Denies Hearing Impairment: Hard of Hearing, Bilateral Hearing Aide Cancer: No Psychosocial: No Integumentary: Yes (MILD) Eczema, Psoriasis Blood Disorders: Yes (HX ANEMIA -BLEEDING ULCER) Adverse Reaction/Blood Tranf: No (HAS HAD BLOOD WITH NO REACTION) Family Medical History FH: liver disease 19 MOTHER FH: lung cancer 19 FATHER Physical Exam Vital Signs Vital Signs - First Documented 09/07/20 11:01 Temp 35.7 Pulse 135 Resp 20 B/P (MAP) 142/88 (106) Pulse Ox 97 O2 Delivery Room Air Capillary Refill : Less Than 3 Seconds Height, Weight, BMI Height: 5'7.00" Weight: 140lbs. 0.0oz. 63.885537xs; 21.00 BMI Method:Stated General Appearance: No Apparent Distress, WD/WN HEENT: PERRL/EOMI, TMs Normal, Normal ENT Inspection, Pharynx Normal Neck: Full Range of Motion, Normal Inspection, Non Tender, Supple Respiratory: Chest Non Tender, Lungs Clear, Normal Breath Sounds Cardiovascular: No Edema, No Murmur, Normal Peripheral Pulses, Irregularly Irregular, Tachycardia Gastrointestinal: Normal Bowel Sounds, Non Tender, Soft Extremity: Normal Capillary Refill, Normal Inspection, Normal Range of Motion, Non Tender, No Calf Tenderness, No Pedal Edema Neurologic/Psychiatric: Alert, Oriented x3, No Motor/Sensory Deficits, 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 Skin: Normal Color, Warm/Dry; No Diaphoresis Progress/Results/Core Measures Results/Orders Lab Results Laboratory Tests Test 09/07/20 11:10 Range/Units White Blood Count 13.6 H 4.3-11.0 10^3/uL Red Blood Count 4.77 4.30-5.52 10^6/uL Hemoglobin 13.7 13.3-17.7 g/dL Hematocrit 42 40-54 % Mean Corpuscular Volume 88 80-99 fL Mean Corpuscular Hemoglobin 29 25-34 pg Mean Corpuscular Hemoglobin Concent 33 32-36 g/dL Red Cell Distribution Width 14.8 H 10.0-14.5 % Platelet Count 220 130-400 10^3/uL Mean Platelet Volume 10.0 9.0-12.2 fL Immature Granulocyte % (Auto) 1 % Neutrophils (%) (Auto) 77 H 42-75 % Lymphocytes (%) (Auto) 8 L 12-44 % Monocytes (%) (Auto) 14 H 0-12 % Eosinophils (%) (Auto) 0 0-10 % Basophils (%) (Auto) 0 0-10 % Neutrophils # (Auto) 10.5 H 1.8-7.8 10^3/uL Lymphocytes # (Auto) 1.1 1.0-4.0 10^3/uL Monocytes # (Auto) 1.9 H 0.0-1.0 10^3/uL Eosinophils # (Auto) 0.0 0.0-0.3 10^3/uL Basophils # (Auto) 0.0 0.0-0.1 10^3/uL Immature Granulocyte # (Auto) 0.1 0.0-0.1 10^3/uL Prothrombin Time 18.0 H 12.2-14.7 SEC INR Comment 1.4 0.8-1.4 Activated Partial Thromboplast Time 26 24-35 SEC Sodium Level 136 135-145 MMOL/L Potassium Level 4.0 3.6-5.0 MMOL/L Chloride Level 101 98-107 MMOL/L Carbon Dioxide Level 23 21-32 MMOL/L Anion Gap 12 5-14 MMOL/L Blood Urea Nitrogen 23 H 7-18 MG/DL Creatinine 0.85 0.60-1.30 MG/DL Estimat Glomerular Filtration Rate > 60 BUN/Creatinine Ratio 27 Glucose Level 89 70-105 MG/DL Calcium Level 9.3 8.5-10.1 MG/DL Corrected Calcium 9.1 8.5-10.1 MG/DL Total Bilirubin 0.8 0.1-1.0 MG/DL Aspartate Amino Transf (AST/SGOT) 17 5-34 U/L Alanine Aminotransferase (ALT/SGPT) 31 0-55 U/L Alkaline Phosphatase 75 40-136 U/L Troponin I < 0.028 <0.028 NG/ML B-Type Natriuretic Peptide 477.5 H <100.0 PG/ML Total Protein 7.1 6.4-8.2 GM/DL Albumin 4.2 3.2-4.5 GM/DL Digoxin Level 1.49 0.80-2.00 NG/ML My Orders Orders - EMERYNICOLE DOAN Troponin I (09/07/20 11:09) Chest 1 View, Ap/Pa Only (09/07/20 11:09) Ekg Tracing (09/07/20 11:09) Monitor-Rhythm Ecg Trace Only (09/07/20 11:09) BNP (09/07/20 11:09) Cbc With Automated Diff (09/07/20 11:09) Comprehensive Metabolic Panel (09/07/20 11:09) Protime With Inr (09/07/20 11:09) Partial Thromboplastin Time (09/07/20 11:09) Digoxin (09/07/20 11:20) Diltiazem Injection (Cardizem Injection) (09/07/20 11:30) Diltiazem Drip Pre-Mix (Cardizem Drip Pr (09/07/20 11:25) Medications Given in ED Current Medications Medications Dose Ordered Sig/Jamal Route Start Time Stop Time Status Last Admin Dose Admin Diltiazem HCl 10 mg ONCE ONCE IVP 09/07/20 11:30 09/07/20 11:31 DC 09/07/20 11:36 10 MG Vital Signs/I&O 09/07/20 11:01 Temp 35.7 Pulse 135 Resp 20 B/P (MAP) 142/88 (106) Pulse Ox 97 O2 Delivery Room Air Blood Pressure Mean: 106 Progress Progress Note : Time: 11:10 Progress Note Patient seen and evaluated, will obtain labs, chest x-ray, and EKG. [address] Hobson, recommended Cardizem 10 mg bolus followed by Cardizem drip at 10 mg an hour. Plan for admission with consult for Dr. Nieves. [address] Nieves, agreed with plans to consult on patient. 1215 HR 90-112 after Cardizen bolus. Drip started. 1230 continues with HR 85-110, patient has no complaints. Discussed labs and ch est with Dr. Hobson, will do Rapid COVID-19, if neg will not do a send out. Dr. Rocha to consult, notified by phone. 1320 HR 80-100. No complaints from patient. 1345 Rapid COVID-19 Neg. Patient has remained stable and denies any requests at this time. Initial ECG Impression Date: Sep 07, 2020 Initial ECG Impression Time: 11:17 Initial ECG Rhythm: A Fib/Flutter Initial ECG Intervals: Normal Initial ECG Intervals QRSD 77, QT 252, QTc 397. Kidder QRS 37, T2 43 Initial ECG Impression: Atrial Fibrillation w/RVR Initial ECG Comparisson: Changed Comment Reviewed with Dr. Dolan and Dr. Hobson agree with interpretation. Diagnostic Imaging Diagonstic Imaging: Xray Plain Films/CT/US/NM/MRI: chest Comments NAME: HARSHIL RHODES [facility] REC#: [id number] PT STATUS: ADM Renny : 1935 PHYSICIAN: NICOLE LAND ADMIT DATE: 09/07/20/ICU Draft Date of Exam:09/07/20 CHEST 1 VIEW, AP/PA ONLY INDICATION: Chest pain. COMPARISON: 06/21/[address] dated 08/25/2020. TECHNIQUE: Single radiograph of the chest dated 09/07/2020. FINDINGS: The cardiac silhouette is mildly enlarged. No significant pulmonary vascular congestion. Focal opacities are present within the bilateral mid lungs, worsened since the prior examinations. Background chronic interstitial lung changes are also present. No significant pleural effusion. No pneumothorax. No acute osseous abnormality. IMPRESSION: Worsening bilateral left greater than right pulmonary opacities superimposed upon background chronic interstitial lung changes. Given this appearance, this may relate to a worsening infectious process, Covid 19 could be considered. Dictated on workstation # [id number] Dict: 09/07/20 1156 Trans: 09/07/20 1201 [facility] [id number] Interpreted by: MAXINE BOWMAN MD Electronically signed by: Reviewed: Reviewed/Discussed (with Drs. Hobson and Lizbeth) Diagonstic Imaging: CT (08/25/20) Plain Films/CT/US/NM/MRI: chest Comments Prior Visit: [address] CHEST. 1. Upper lobe predominant findings of centrilobular and paraseptal emphysema. 2. Lower lobe predominant peripheral reticular opacities multiple lobar bronchiectasis which may relate to an interstitial lung disease. NSIP and UIP are both considered. 3. Multifocal areas of groundglass lung consolidation which are unchanged in extent since May 31, 2020. Findings could relate to pneumonitis. Given the stability for over 2 months, infectious etiology or malignancy would be less likely although difficult to completely exclude. 4. Unchanged mediastinal lymph nodes. Departure Impression Primary Impression: Atrial fibrillation with RVR Disposition: ADMITTED INPATIENT Condition: Stable Admissions Decision to Admit Reason: Admit from ER (General) Decision to Admit/Date: Sep 07, 2020 Time/Decision to Admit Time: 11:30 Departure-Patient Inst. Referrals: ALBARO BRADFORD DO (PCP/Family) Primary Care Physician NICOLE LAND Sep 07, 2020 11:37
[2020-09-07] MEDS ORDERED: NS IV 1000 ML 1,000 ML IV SCH (11:44)
[2020-09-07] MEDS ORDERED: NS IV 1000 ML 1,000 ML ONE (11:46)
--- NOTE | 2020-09-07 12:02 | Diagnostic Imaging Report ---
INDICATION: Chest pain. COMPARISON: 06/21/[address] dated 08/25/2020. TECHNIQUE: Single radiograph of the chest dated 09/07/2020. FINDINGS: The cardiac silhouette is mildly enlarged. No significant pulmonary vascular congestion. Focal opacities are present within the bilateral mid lungs, worsened since the prior examinations. Background chronic interstitial lung changes are also present. No significant pleural effusion. No pneumothorax. No acute osseous abnormality. IMPRESSION: Worsening bilateral left greater than right pulmonary opacities superimposed upon background chronic interstitial lung changes. Given this appearance, this may relate to a worsening infectious process, Covid 19 could be considered. Dictated by: Dictated on workstation # [id number]
[2020-09-07 12:50] VITALS: BP 120/97
[2020-09-07] MEDS ORDERED: ONDANSETRON 4 MG/2 ML (SDV) Z0FRAN IV PRN (13:15)
[2020-09-07] MEDS ORDERED: CATHETER FLUSH 10 ML SYR IV PRN (13:15)
[2020-09-07] MEDS ORDERED: ACETAMINOPHEN 325 MG TABLET PO PRN (13:15)
--- NOTE | 2020-09-07 13:26 | Consultation - Hospitalist ---
ENDER HENDRICKSON MED STUDENT 09/07/20 1326: HPI History of Present Illness: HPI/Chief Complaint Medicine asked to consult on 85y/o M with cc of elevated HR. PMH of afib, CAD, HTN, hypercholesterolemia, stroke, valvular heart dz, emphysema, and T2DM. Pt Presented to the ED at request of his catcher plug, Dr. Hobson. Pt presented to Dr. Hobson's office as outpt this morning after having a elevated HR a couple days ago before getting a spinal injection. According to pt, HR was in the 160's at Dr Hobson's office today. EKG in ED confirmed Afib with RVR. Pt has a hx of afib which he takes diltiazem, metoprolol, digoxin and apixaban at home for. Pt denies any issues or non-compliance of cardiac medication. Pt denies any chest pain, dizziness, palpitations, cough, SOB, abd pain diarrhea or constipation. Pt lives at home with and states he has no issues with mobility. Source: patient, EMS notes reviewed, old records Date Seen 09/07/20 Attending Physician Sudha Hobson MD PCP Tariq Howe DO Referring Physician Date of Admission Sep 07, 2020 at 11:30 Home Medications & Allergies Home Medications Reviewed patient Home Medication Reconciliation performed by pharmacy medication reconciliations drafting technician and/or nursing. Patients Allergies have been reviewed. Allergies Allergies Coded Allergies No Known Drug Allergies (Unverified06/15/20) Past Daprjlp-Intzkp-Gaufgo Hx Past Med/Social Hx: Reviewed Nursing Past Med/Soc Hx Patient Social History Marrital Status: Alcohol Use: Rarely Uses Alcohol Beverage of Choice: Wine Recreational Drug Use: No Former Smoker, Quit: Jul 26, 1984 2nd Hand Smoke Exposure: Yes Recent Foreign Travel: No Contact w/other who traveled: No Recent Hopitalizations: No Recent Infectious Disease Expo: No Immunizations Up To Date Tetanus Booster (TDap): Unknown Date of Pneumonia Vaccine: Aug 03, 2018 Date of Influenza Vaccine: Aug 02, 2020 Seasonal Allergies Seasonal Allergies: Yes (RUNNY NOSE) Past Medical History Surgeries: Orthopedic Respiratory: COPD Currently Using CPAP: No Currently Using BIPAP: No Cardiac: Atrial Fibrillation, Coronary Artery Disease, High Cholesterol, Hypertension, Valvular Heart Disease Neurological: Stroke Reproductive: No Sexually Transmitted Disease: No HIV/AIDS: No Genitourinary: Benign Prostatic Hyperpl Gastrointestinal: Gastroesophageal Reflux, Diverticulosis, Polyps Musculoskeletal: Arthritis, Chronic Back Pain Endocrine: Diabetes, Non-Insulin dep HEENT: Cataract Loss of Vision: Denies Hearing Impairment: Hard of Hearing, Bilateral Hearing Aide Skin/Integumentary: Eczema, Psoriasis History of Blood Disorders: Yes (HX ANEMIA -BLEEDING ULCER) Adverse Reaction to Blood Gomez: No (HAS HAD BLOOD WITH NO REACTION) Family History FH: liver disease 19 MOTHER FH: lung cancer 19 FATHER Review of Systems Constitutional: No chills, No dizziness, No fever, No weakness Respiratory: No cough, No dyspnea on exertion, No short of breath Cardiovascular: No chest pain, No palpitations, No syncope Gastrointestinal: No abdominal pain, No constipation, No diarrhea Genitourinary: No dysuria, No incontinence Skin: No change in color, No lesions Physical Exam Physical Exam Vital Signs Vital Signs - First Documented 09/07/20 11:01 Temp 35.7 Pulse 135 Resp 20 B/P (MAP) 142/88 (106) Pulse Ox 97 O2 Delivery Room Air Capillary Refill : Less Than 3 Seconds Height, Weight, BMI Height: 5'7.00" Weight: 140lbs. 0.0oz. 63.157079vq; 21.00 BMI Method:Stated General Appearance: No Apparent Distress, WD/WN Eyes: Bilateral Eye Normal Inspection, Bilateral Eye PERRL, Bilateral Eye EOMI HEENT: PERRL/EOMI, TMs Normal, Normal ENT Inspection, Pharynx Normal Neck: Full Range of Motion, Normal Inspection Respiratory: Chest Non Tender, No Accessory Muscle Use, No Respiratory Distress, Decreased Breath Sounds, Wheezing (b/l lower lung jesus ) Cardiovascular: No Edema, No Murmur, Normal Peripheral Pulses, Irregularly Irregular, Tachycardia Gastrointestinal: Non Tender, Soft Rectal: Deferred Extremity: Normal Capillary Refill, Normal Inspection, No Pedal Edema Neurologic/Psychiatric: Alert, Oriented x3, 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, engine monitor II-XII Norm as Tested Skin: Normal Color, Warm/Dry; No Diaphoresis Results Results/Procedures Labs Laboratory Tests 09/07/20 11:10 Patient resulted labs reviewed. Assessment/Plan Assessment and Plan Assess & Plan/Chief Complaint Afib with RVR Cardiology following Pt started on cardizem drip Serum digoxin levels normal in ED Consider ordering thyroid function labs T2DM Discontinue home regiment Start sliding scale insulin. No basal insulin. DVT prophylaxis Continue pts home Eliquis. CHADS-VASc score: 05/04 Clinical Quality Measures AMI/AHF: ASA po Prior to arrival: No DESHAWN OCAMPO MD 09/09/20 1749: Past Wkyadao-Jkfzyr-Blzidj Hx Family History FH: liver disease 19 MOTHER FH: lung cancer 19 FATHER Assessment/Plan Assessment and Plan Assess & Plan/Chief Complaint Consulted on patient admitted with AFib with RVR. Cardiology primary. Started on Cardizem gtt. Likely cardioversion in coming days. Sliding scale for diabetes. We will continue to follow. 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 I reviewed and verified all information documented by the medical student and made modifications to such information, when appropriate. I personally performed the physical exam and medical decision making. Deshawn Ocampo, Sep 09, 2020,18:08 ENDER HENDRICKSON MED STUDENT Sep 07, 2020 13:26 DESHAWN OCAMPO MD Sep 09, 2020 17:49
[2020-09-07] MEDS ORDERED: PRD10T PO ×2 (13:59→14:39)
[2020-09-07] MEDS ORDERED: METF-397 PO (13:59)
[2020-09-07] MEDS ORDERED: METO-352 PO (14:39)
[2020-09-07] MEDS ORDERED: PANT40TA52 PO (14:39)
[2020-09-07] MEDS ORDERED: METF-865 PO (14:39)
[2020-09-07] MEDS ORDERED: APIX2.5T PO (14:39)
[2020-09-07] MEDS ORDERED: ACET-2267 PO (14:39)
[2020-09-07] MEDS ORDERED: DOCU-238 PO (14:39)
[2020-09-07] MEDS ORDERED: BETHANECHOL PO (14:58)
--- NOTE | 2020-09-07 15:04 | NUR ---
SPOKE WITH THE PT (HE HAD HIS HOME MEDS WITH HIM), WENT THRU THE EXT MED HISTORY AND CALLED HIS MAIL ORDER PHARMACY TO COMPLETE THE MED REC PT WAS ABLE TO TELL ME HOW/WHEN HE TAKES EACH MEDICATION BETHANECHOL 25MG- DIRECTION SHOW 1 TAB QID (THIS IS WHAT THE MAILORDER HAS ON FILE) AND WAS LAST FILLED 02-20-2020 #360 HOWEVER ACCORDING TO THE PT HE TAKES 1 TAB TID. OVER THE PAST YEAR THE MAILORDER PHARMACY HAS FILLED THIS MEDICATION USING QID DIRECTIONS, AND SINCE PT IS ONLY TAKING TID EACH FILL LASTS 4 MONTHS. SINCE AUGUST 2019 THE PT HAS RECEIVED #1080 TABS AND THAT WOULD LAST 1 YEAR. FOR THE ABOVE REASONS THE PRESCRIPTION IS NOT PAST DUE. 08-24-2020 PROMETHAZINE W/ CODEINE 180 ML WAS FILLED AT [facility] BUT PT SAID HE ISNT USING PREDNISONE 10MG- PT IS ON A TAPER DOSE (6 TABS,6,5,5,4,4,3,3,2,2,1,1 TAB) AND HAS 3 DAYS LEFT (2 TABS X 1 DAY THEN 1 TAB X 2 DAYS) OTC MEDS: TYLENOL STOOL SOFTENER
[2020-09-07] MEDS: dilTIAZem DRIP 125 MG/125 ML DRIP IV SCH (15:08)
[2020-09-07] MEDS: NS IV 1000 ML 1,000 ML IV SCH ×2 (16:26→18:27)
[2020-09-07] MEDS ORDERED: PATIENT MAY USE OWN MEDS, ALL MC SCH (16:45)
[2020-09-07] MEDS: APIXABAN 2.5 MG (ELIQUIS) TABLET PO SCH (19:57)
[2020-09-08 03:11] LABS: BASOPHILS % (AUTO) 0 % (0-10); EOSINOPHILS % (AUTO) 0 % (0-10); HEMATOCRIT 38 % (40-54); HEMOGLOBIN 12.6 g/dL (13.3-17.7); LYMPHOCYTES # (AUTO) 1.4 10^3/uL (1.0-4.0); LYMPHOCYTES % (AUTO) 12 % (12-44); MEAN CORPUSCULAR HEMOGLOBIN 29 pg (25-34); MEAN CORPUSCULAR HGB CONC 33 g/dL (32-36); MEAN CORPUSCULAR VOLUME 87 fL (80-99); MEAN PLATELET VOLUME 10.6 fL (9.0-12.2); MONOCYTES # (AUTO) 1.4 10^3/uL (0.0-1.0); MONOCYTES % (AUTO) 12 % (0-12); NEUTROPHILS % (AUTO) 76 % (42-75); PLATELET COUNT 214 10^3/uL (130-400); WHITE BLOOD COUNT 11.9 10^3/uL (4.3-11.0)
[2020-09-08] MEDS: dilTIAZem DRIP 125 MG/125 ML DRIP IV SCH (03:11)
[2020-09-08 03:28] LABS: BUN/CREATININE RATIO 27; CALCIUM 8.6 MG/DL (8.5-10.1); CARBON DIOXIDE 20 MMOL/L (21-32); CHLORIDE 104 MMOL/L (98-107); CREATININE SERUM 0.74 MG/DL (0.60-1.30); GFR ESTIMATED > 60; GLUCOSE 100 MG/DL (70-105); MAGNESIUM 1.9 MG/DL (1.6-2.4); PHOSPHORUS 3.2 MG/DL (2.3-4.7); POTASSIUM 4.3 MMOL/L (3.6-5.0); SODIUM 135 MMOL/L (135-145)
--- NOTE | 2020-09-08 07:35 | Diagnostic Imaging Report ---
INDICATION: Dyspnea EXAMINATION: Chest 09/08/2020 COMPARISON: 09/07/2020 FINDINGS: There are scattered bilateral infiltrates especially in the mid lungs similar to previous imaging. Coarsened markings throughout the remaining lung stable. No pneumothorax or effusions. Heart is prominent. Pulmonary vasculature appears congested. IMPRESSION: 1. Stable chest. Dictated by: Dictated on workstation # [id number]
[2020-09-08] MEDS: APIXABAN 2.5 MG (ELIQUIS) TABLET PO SCH ×2 (08:00→20:01)
[2020-09-08] MEDS: DILTIAZEM 360 MG PO SCH (08:02)
[2020-09-08] MEDS: DIGOXIN 0.125 MG (LANOXIN) TAB PO SCH (08:02)
[2020-09-08] MEDS: NS IV 1000 ML 1,000 ML IV SCH (08:08)
[2020-09-08] MEDS ORDERED: meTOproloL SUCCINATE 50 MG (TOPROL XL) TAB PO SCH (09:00)
--- NOTE | 2020-09-08 09:16 | Cardiology History & Physical ---
[facility]-Cardiology Cardiology Consultation Date of Consultation 09/08/20 Date of Admission Time Seen by Provider: 09:11 Indication: paroxysmal atrial fibrillation HPI 85 years old gentleman with history of paroxysmal atrial fibrillation and has been tachycardic, complaining of fatigue, he was scheduled for outpatient procedure where he was noted to be tachycardic, he was given his daily dose of medication and came to my office the next morning. On my evaluation patient had a heart rate of 160. He admits feeling tired, denied any palpitation, no chest pain or shortness of breath. I discussed with him the management per recommended admission to the hospital for initiating diltiazem drip. Patient was sent to the emergency room and he was noted to be tachycardic. On my evaluation today he was feeling better on Cardizem drip I stopped the drip and switch him to oral Cardizem and started digoxin. He is still tachycardic at this point, I'll titrate the dose today and planning to discharge him later today if possible PMH-Cardiology Immunizations Up To Date Tetanus Booster (DTap): Unknown Date of Pneumonia Vaccine: Aug 03, 2018 Date of Influenza Vaccine: Aug 02, 2020 Seasonal Allergies Seasonal Allergies: Yes (RUNNY NOSE) Surgeries Yes (ESPHAGAS SURG, HERNIA,R SHOULDER, BACK, CATARACTS, CTR) Respiratory No COPD Cardiovascular Yes (PAROXYSMAL A FIB) Irregular Heartbeat, High Cholesterol, Hypertension Neurological Yes Stroke Reproductive System Hx Reproductive Disorders: No Sexually Transmitted Disease: No HIV/AIDS: No Genitourinary No Benign Prostatic Hyperpl Gastrointestinal Yes (HX BLEEDING ULCER) Gastroesophageal Reflux, Diverticulosis, Polyps Musculoskeletal Yes (ORTHO SURGERY) Arthritis, Chronic Back Pain Endocrine Yes (DM TYPE II) Diabetes, Non-Insulin dep HEENT Yes (GLASSES, DENTURES) Cataract Loss of Vision: Denies Hearing Impairment: Hard of Hearing, Bilateral Hearing Aide Cancer No Psychosocial No Integumentary Yes (MILD) Eczema, Psoriasis Blood Transfusions Yes (HX ANEMIA -BLEEDING ULCER) Adverse Rxn to Transfusion: No (HAS HAD BLOOD WITH NO REACTION) Other PMHx Past medical history as discussed below Social History Patient Social History Marrital Status: Employed/Student: retired Alcohol Use: Rarely Uses Recreational Drug Use: No Dip or chew tobacco?: No Recent Foreign Travel: No Contact w/other who traveled: No Recent Infectious Disease Expo: No Family Hx Family History: FH: liver disease 19 MOTHER FH: lung cancer 19 FATHER ROS-Cardiology Review of Systems General: No Chills, No Night Sweats; Fatigue; No Malaise, No Appetite HEENT: No Head Aches, No Visual Changes, No Eye Pain, No Ear Pain, No Dysphasia, No Sinus Congestion, No Post Nasal Drip, No Sore Throat Pulmonary: Dyspnea; No Cough, No Pleuritic Chest Pain Cardiovascular: No: Chest Pain, Palpitations, Orthopnea, Paroxysmal Noc. Dyspnea, Edema, Lt Headedness Gastrointestinal: No: Nausea, Vomiting, Abdominal Pain, Diarrhea, Constipation, Melena, Hematochezia Genitourinary: No Dysuria, No Frequency, No Incontinence, No Hematuria, No Retention Musculoskeletal: No: neck pain, shoulder pain, arm pain, back pain, hand pain, leg pain, foot pain Neurological: No: Weakness, Numbness, Incoordination, Change in speech, Confusion, Seizures Home Medications & Allergies Allergies: Coded Allergies: No Known Drug Allergies (Unverified , 06/15/20) Exam-Cardiology Vital Signs Vital Signs Date Time Temp Pulse Resp B/P (MAP) Pulse Ox O2 Delivery O2 Flow Rate FiO2 09/08/20 07:58 Room Air 09/08/20 07:55 36.5 09/08/20 06:00 102 15 118/83 93 Exam General Appearance: Alert, Oriented X3, Cooperative, No Acute Distress HEENT: Atraumatic, PERRLA Respiratory: Clear to Auscultation, Normal Air Movement Cardiovascular: Normal S1, Normal S2, No Murmurs, Other (atrial fibrillation with rapid ventricular response) Abdominal: Normal Bowel Sounds, Soft, No Tenderness, No Hepatosplenomegaly, No Masses Extremities: No Clubbing, No Cyanosis, No Edema, Normal Pulses, No Tenderness/Swelling Skin: No Rashes, No Breakdown, No Significant Lesion Neuro: Normal Gait, Normal Speech, Strength at 5/5 X4 Ext, Normal Tone, Sensation Intact Psych/Mental Status: Mental Status NL, Mood NL Results Labs Labs Laboratory Tests 09/07/20 11:10: White Blood Count 13.6H, Red Blood Count 4.77, Hemoglobin 13.7, Hematocrit 42, Mean Corpuscular Volume 88, Mean Corpuscular Hemoglobin 29, Mean Corpuscular Hemoglobin Concent 33, Red Cell Distribution Width 14.8H, Platelet Count 220, Mean Platelet Volume 10.0, Immature Granulocyte % (Auto) 1, Neutrophils (%) (Auto) 77H, Lymphocytes (%) (Auto) 8L, Monocytes (%) (Auto) 14H, Eosinophils (%) (Auto) 0, Basophils (%) (Auto) 0, Neutrophils # (Auto) 10.5H, Lymphocytes # (Auto) 1.1, Monocytes # (Auto) 1.9H, Eosinophils # (Auto) 0.0, Basophils # (Auto) 0.0, Immature Granulocyte # (Auto) 0.1, Prothrombin Time 18.0H, INR C omment 1.4, Activated Partial Thromboplast Time 26, Sodium Level 136, Potassium Level 4.0, Chloride Level 101, Carbon Dioxide Level 23, Anion Gap 12, Blood Urea Nitrogen 23H, Creatinine 0.85, Estimat Glomerular Filtration Rate > 60, BU N/Creatinine Ratio 27, Glucose Level 89, Calcium Level 9.3, Corrected Calcium 9.1, Total Bilirubin 0.8, Aspartate Amino Transf (AST/SGOT) 17, Alanine Aminotransferase (ALT/SGPT) 31, Alkaline Phosphatase 75, Troponin I < 0.028, B- Type Natriuretic Peptide 477.5H, Total Protein 7.1, Albumin 4.2, Digoxin Level 1.49 09/07/20 12:49: Coronavirus 2019 (BREANNA) Negative 09/08/20 02:49: White Blood Count 11.9H, Red Blood Count 4.33, Hemoglobin 12.6L, Hematocrit 38L, Mean Corpuscular Volume 87, Mean Corpuscular Hemoglobin 29, Mean Corpuscular Hemoglobin Concent 33, Red Cell Distribution Width 15.0H, Platelet Count 214, Mean Platelet Volume 10.6, Immature Granulocyte % (Auto) 0, Neutrophils (%) (Auto) 76H, Lymphocytes (%) (Auto) 12, Monocytes (%) (Auto) 12, Eosinophils (%) (Auto) 0, Basophils (%) (Auto) 0, Neutrophils # (Auto) 9.0H, Lymphocytes # (Auto) 1.4, Monocytes # (Auto) 1.4H, Eosinophils # (Auto) 0.0, Basophils # (Auto) 0.0, Immature Granulocyte # (Auto) 0.0, Sodium Level 135, Potassium Level 4.3, Chloride Level 104, Carbon Dioxide Level 20L, Anion Gap 11, Blood Urea Nitrogen 20H, Creatinine 0.74, Estimat Glomerular Filtration Rate > 60, BUN/Creatinine Ratio 27, Glucose Level 100, Calcium Level 8.6, Phosphorus Level 3.2, Magnesium Level 1.9 A/P-Cardiology Admission Diagnosis Atrial fibrillation Tachycardia Hypertension Hyperlipidemia Admission Status: Inpatient Order (span 2 midnights) Reason for Inpatient Admission: Atrial fibrillation with rapid ventricular response Assessment/Plan Paroxysmal atrial fibrillation/flutter, rapid ventricular response. Patient has been in persistent atrial fibrillation which was controlled previously. I will restart diltiazem 360 mg daily, Toprol 50 mg daily and add digoxin at this time. We'll consider increasing the metoprolol dose if needed. Patient is maintained on oral anticoagulation which will be resumed History of CVA with left facial drooping, left arm weakness. 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 Patient had initial workup at hospital in [place]. MRI of the head showed subacute infarct, patient is maintained on Eliquis. Continue current medication monitor. Dyspnea, improving. Following with Dr. Rocha after having abnormal CT chest, underwent bronchoscopy revealing strep, has completed antibiotics, patient reports improvement of symptoms History of GI bleed. Was hospitalized late in October 2017, had blood transfusion and underwent EGD showing duodenal ulcer that has a fibrinous clot on top of it. Currently feeling better. Chest pain, nonspecific etiology-resolved. Last stress test was done in November 2017 showing no ischemia or infarction with normal left ventricular size and function. History of syncope, patient had tilt table test which revealed severe dizziness and hypotension back in February 2013. Reports improvement, no further episodes of syncope after increasing salt and fluid intake. Hypertension, new to monitor blood pressure on current medication Hyperlipidemia, monitor lipids Diabetes mellitus, followed and managed by Dr. Howe, seen during the hospitalization with Dr. Bedoya Bilateral moderate carotid stenosis, 40-59 percent per most recent carotid duplex done December 2019, continue to monitor. Dysphagia, Zenker diverticulum, status post Zenker diverticulum surgery done by Dr. Estrada. Clinical Quality Measures AMI/AHF: ASA po Prior to arrival: No DVT/VTE Risk/Contraindication: Risk Factor Score Per Nursin RFS Level Per Nursing on Admit: 2=Moderate CRISS FOSTER MD Sep 08, 2020 09:16
--- NOTE | 2020-09-08 09:54 | NUR ---
CALL PLACED TO DR FOSTER FOR PT HR 120-160. SEE [facility] FOR ORDERS.
[2020-09-08] MEDS ORDERED: meTOprolol 5 MG/5 ML (LOPRESSOR) VIAL ONE (09:55)
[2020-09-08] MEDS ORDERED: dilTIAZem120 MG (CARDIZEM CD) CAP PO SCH (10:00)
[2020-09-08] MEDS ORDERED: meTOprolol 5 MG/5 ML (LOPRESSOR) VIAL IV NR (10:00)
--- NOTE | 2020-09-08 15:10 | Progress Note - Hospitalist ---
Subjective HPI/CC On Admission Date Seen by Provider: Sep 08, 2020 Time Seen by Provider: 08:55 Medicine asked to consult on 85y/o M with cc of elevated HR. PMH of afib, CAD, HTN, hypercholesterolemia, stroke, valvular heart dz, emphysema, and T2DM. Pt Presented to the ED at request of his book critic, Dr. Hobson. Pt presented to Blanche Hobson's office as outpt this morning after having a elevated HR a couple days ago before getting a spinal injection. According to pt, HR was in the 160's at Dr Hobson's office today. EKG in ED confirmed Afib with RVR. Pt has a hx of afib which he takes diltiazem, metoprolol, digoxin and apixaban at home for. Pt denies any issues or non-compliance of cardiac medication. Pt denies any chest pain, dizziness, palpitations, cough, SOB, abd pain diarrhea or constipation. Pt lives at home with and states he has no issues with mobility. Subjective/Events-last exam He denies any complaints. He denies chest pain and palpitations. He denies shortness of breath. He has been eating and drinking without issue. Objective Exam Vital Signs Vital Signs Date Time Temp Pulse Resp B/P (MAP) Pulse Ox O2 Delivery O2 Flow Rate FiO2 09/08/20 13:28 92 09/08/20 12:00 30 125/86 93 Room Air 09/08/20 07:55 36.5 Capillary Refill : Less Than 3 Seconds General Appearance: No Apparent Distress, WD/WN Respiratory: Lungs Clear, Normal Breath Sounds, No Respiratory Distress Cardiovascular: No Edema, No Murmur, Irregularly Irregular Gastrointestinal: Normal Bowel Sounds, Non Tender, Soft Extremity: Normal Inspection, Non Tender, No Pedal Edema Neurologic/Psychiatric: Alert, Oriented x3, No Motor/Sensory Deficits, 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 Skin: Normal Color, Warm/Dry Results/Procedures Lab Laboratory Tests 09/08/20 02:49 Patient resulted labs reviewed. Imaging: Reviewed Imaging Report Assessment/Plan Assessment and Plan Assess & Plan/Chief Complaint Afib with RVR Cardiology primary Cardizem Digoxin Toprol Eliquis T2DM SSI HTN HLD BPH Continue home meds DVT prophylaxis: already receiving therapeutic anticoagulation Diagnosis/Problems Diagnosis/Problems (1) Atrial fibrillation with RVR Status: Acute Clinical Quality Measures AMI/AHF: ASA po Prior to arrival: No DVT/VTE Risk/Contraindication: Risk Factor Score Per Nursin RFS Level Per Nursing on Admit: 2=Moderate DESHAWN OCAMPO MD Sep 08, 2020 15:10
--- NOTE | 2020-09-08 17:16 | NUR ---
"RD ASSESSMENT PMHx: COPD; hypercholesterolemia; HTN; stroke; BPH; GERD; diverticulosis; DM PT INTERACTION: Pt was awake and pleasant during nutrition assessment. Pt states current appetite is pretty good. Note avg PO intake 75% x2meal, per chart review. Pt states following a regular diet at home, and has no issues with chewing/swallowing food. Pt states no recent issues with nausea, vomiting, constipation, or diarrhea. Note last BM was 09/08, and pt not currently on bowel regimen per chart review. Pt states no recent wt changes. Note recent 4# wt gain x3mon, per chart review. Pt states current DM management is pretty good. Note unable to determine recent HbA1c, per chart review. ABNORMAL NUTRITION-RELATED LAB VALUES LOW: HIGH: BUN 20; Est. kcal needs: 9129-0702 kcal | 25-30 kcal/kg Est. Pro needs: 49-61 g Pro | 0.8-1.0 g Pro/kg PES STATEMENT: Given current PO intake, no nutrition diagnosis at this time (NO-1.1). INTERVENTION: Continue with current diet order of Regular diet. Pt may benefit from consistent CHO restriction if blood glucose levels become elevated. Offered diet education on DM management, but pt declined at this time. May attempt to offer again prior to discharge. Will continue to follow and reassess as pt needs, intake, and status change. Sigrid Colbert, MS RD LD"
[2020-09-08] MEDS: TAMSULOSIN 0.4 MG (FLOMAX) CAP PO SCH (17:36)
[2020-09-08] MEDS: BETHANECHOL 25 MG (URECHOLINE) TAB PO SCH (17:36)
[2020-09-08] MEDS ORDERED: ALFUZOSIN HCL 10 MG TAB (UROXATRAL) PO SCH (19:00)
[2020-09-08] MEDS: meTOproloL SUCCINATE 50 MG (TOPROL XL) TAB PO SCH (20:04)
[2020-09-08] MEDS ORDERED: NON-FORMULARY MEDICATION 1 EA EA ([Bethanechol] 25 MG) PO SCH (21:00)
[2020-09-08] MEDS ORDERED: LOSARTAN 25 MG (COZAAR) TAB PO SCH (21:00)
[2020-09-09 02:48] LABS: BASOPHILS % (AUTO) 0 % (0-10); EOSINOPHILS # (AUTO) 0.1 10^3/uL (0.0-0.3); EOSINOPHILS % (AUTO) 1 % (0-10); HEMATOCRIT 38 % (40-54); HEMOGLOBIN 12.4 g/dL (13.3-17.7); LYMPHOCYTES # (AUTO) 1.7 10^3/uL (1.0-4.0); LYMPHOCYTES % (AUTO) 12 % (12-44); MEAN CORPUSCULAR HEMOGLOBIN 29 pg (25-34); MEAN CORPUSCULAR HGB CONC 32 g/dL (32-36); MEAN CORPUSCULAR VOLUME 89 fL (80-99); MEAN PLATELET VOLUME 10.5 fL (9.0-12.2); MONOCYTES # (AUTO) 1.9 10^3/uL (0.0-1.0); MONOCYTES % (AUTO) 13 % (0-12); NEUTROPHILS # (AUTO) 10.6 10^3/uL (1.8-7.8); NEUTROPHILS % (AUTO) 74 % (42-75); PLATELET COUNT 203 10^3/uL (130-400); WHITE BLOOD COUNT 14.4 10^3/uL (4.3-11.0)
[2020-09-09 03:04] LABS: CHLORIDE 103 MMOL/L (98-107); POTASSIUM 4.3 MMOL/L (3.6-5.0); SODIUM 134 MMOL/L (135-145)
[2020-09-09 03:05] LABS: CALCIUM 8.3 MG/DL (8.5-10.1); GLUCOSE 98 MG/DL (70-105)
[2020-09-09 03:07] LABS: CARBON DIOXIDE 20 MMOL/L (21-32)
[2020-09-09 03:09] LABS: CREATININE SERUM 0.73 MG/DL (0.60-1.30); GFR ESTIMATED > 60; PHOSPHORUS 3.3 MG/DL (2.3-4.7)
[2020-09-09 03:10] LABS: BUN/CREATININE RATIO 23
[2020-09-09 03:11] LABS: MAGNESIUM 1.8 MG/DL (1.6-2.4)
[2020-09-09] MEDS: BETHANECHOL 25 MG (URECHOLINE) TAB PO SCH ×3 (06:27→18:17)
[2020-09-09] MEDS: NS IV 1000 ML 1,000 ML IV SCH ×2 (06:27→10:13)
--- NOTE | 2020-09-09 07:43 | Diagnostic Imaging Report ---
INDICATION: Dyspnea. Time of exam: 3:21 AM Correlation is made with prior chest from 09/08/2020. Heart size is stable. Bilateral mixed interstitial and airspace pulmonary infiltrates persist consistent with pneumonia. This is similar to prior exam. No effusion or pneumothorax is detected. IMPRESSION: No significant change in bilateral pulmonary infiltrates since exam one day earlier. Dictated by: Dictated on workstation # [id number]
[2020-09-09] MEDS ORDERED: PANTOPRAZOLE 40 MG (PROTONIX) TAB PO SCH (09:00)
[2020-09-09] MEDS ORDERED: NS IV 500 ML 500 ML ONE (09:17)
[2020-09-09] MEDS ORDERED: MIDAZOLAM 5 MG/5 ML (VERSED) VIAL ONE (09:17)
[2020-09-09] MEDS ORDERED: proPOfol 200 MG/20 ML (DIPRIVAN) VIAL IV ONE (09:17)
[2020-09-09] MEDS ORDERED: LIDOCAINE 2% VISCOUS 15 ML UDC ONE (09:17)
[2020-09-09] MEDS ORDERED: LIDOCAINE 2% VISCOUS 15 ML UDC PO ONE (09:30)
[2020-09-09] MEDS ORDERED: MIDAZOLAM 2 MG/2 ML (VERSED) VIAL IM ONE (09:30)
[2020-09-09] MEDS ORDERED: proPOfol 500 MG/50 ML (DIPRIVAN) VIAL IV ONE (09:30)
--- NOTE | 2020-09-09 09:44 | Cardiac Procedure Note-CS/ASA ---
Pre-Procedure Note Pre-Op Procedure Note H&P Reviewed The H&P was reviewed, patient examined and no changes noted. Date H&P Reviewed: Sep 09, 2020 Time H&P Reviewed: 09:44 Conscious Sedation Pre-Proced Time 09:44 ASA Score 3 For ASA 3 and 4: Consider anesthesia and medical clearance. Also, for patients with a history of failed moderate sedation consider anesthesia. Airway Lungs Heart ASA score ASA 1: a normal healthy patient ASA 2: a patient with a mild systemic disease (mid diabetes, controlled hypertension, obesity x ASA 3: a patient with a severe systemic disease that limits activity (angina, COPD, prior Myocardial infarction) ASA 4: a patient with an incapacitating disease that is a constant threat to life (CHF, renal failure) ASA 5: a moribund patient not expected to survive 24 hrs. (ruptured aneurysm) ASA 6: a declared brain- patient whose organs are being harvested. For emergent operations, add the letter E after the classification Mallampati Classification Grade 3 Sedation Plan Analgesia, Amnesia, Plan communicated to team members, Discussed options with patient/fam, Discussed risks with patient/fam The patient is an appropriate candidate to undergo the planned procedure, sedation, and anesthesia. The patient immediately re-assessed prior to indication. CRISS FOSTER MD Sep 09, 2020 09:44
--- NOTE | 2020-09-09 09:44 | Cardiology Progress Note ---
Subjective Date Seen by Provider: Sep 09, 2020 Time Seen by Provider: 09:42 Subjective/Events-last exam Patient is laying down in bed, still having heart rate 150-160. He is on large dose of diltiazem and beta blockers, borderline hypotensive. Discussed the management per recommended DONNIE and cardioversion Review of Systems General: No Chills, No Night Sweats, No Fatigue, No Malaise, No Appetite, No Other HEENT: No Head Aches, No Visual Changes, No Eye Pain, No Ear Pain, No Dysphasia, No Sinus Congestion, No Post Nasal Drip, No Sore Throat, No Other Pulmonary: No Dyspnea, No Cough, No Pleuritic Chest Pain, No Other Cardiovascular: No: Chest Pain, Palpitations, Orthopnea, Paroxysmal Noc. Dyspnea, Edema, Lt Headedness, Other Objective-Cardiology Exam Last Set of Vital Signs Vital Signs 09/09/20 09/09/20 09/09/20 09/09/20 00:00 04:00 07:00 07:47 Temp 36.6 Pulse 118 Resp 18 B/P (MAP) 125/80 Pulse Ox 91 O2 Delivery Room Air Capillary Refill : Less Than 3 Seconds I&O Intake and Output 09/09/20 00:00 Intake Total 3130 ml Output Total 953 ml Balance 2177 ml Intake Oral 2005 ml IV Total 1125 ml Output Urine Total 953 ml # Voids 5 # Bowel Movements 2 General: Alert, Oriented X3, Cooperative, No Acute Distress HEENT: Atraumatic, PERRLA Lungs: Clear to Auscultation, Normal Air Movement Heart: Normal S1, Normal S2, No Murmurs, Other (atrial fibrillation with rapid ventricular response) Abdomen: Normal Bowel Sounds, Soft, No Tenderness, No Hepatosplenomegaly, No Masses Extremities: No Clubbing, No Cyanosis, No Edema, Normal Pulses, No Tenderness/Swelling Skin: No Rashes, No Breakdown, No Significant Lesion Neuro: Normal Gait, Normal Speech, Strength at 5/5 X4 Ext, Normal Tone, Sensation Intact Psych/Mental Status: Mental Status NL, Mood NL Results Lab Laboratory Tests 09/09/20 02:12 A/P-Cardiology Admission Diagnosis Atrial fibrillation Tachycardia Hypertension Hyperlipidemia Assessment/Plan Paroxysmal atrial fibrillation/flutter, rapid ventricular response. Patient has been in persistent atrial fibrillation which was controlled previously. At this time he is becoming more unstable, receiving large doses of diltiazem and Toprol and digoxin and still tachycardic, I am planning to evaluate DONNIE and possible cardioversion today. Patient will need evaluation for possible A. fib ablation History of CVA with left facial drooping, left arm weakness. 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 Patient had initial workup at hospital in [place]. MRI of the head showed subacute infarct, patient is maintained on Eliquis. Continue current medication monitor. Dyspnea, improving. Following with Dr. Rocha after having abnormal CT chest, underwent bronchoscopy revealing strep, has completed antibiotics, patient rep orts improvement of symptoms, chest x-ray still showing abnormality, Propulsid [place] and is normal History of GI bleed. Was hospitalized late in October 2017, had blood transfusion and underwent EGD showing duodenal ulcer that has a fibrinous clot on top of it. Currently feeling better. Chest pain, nonspecific etiology-resolved. Last stress test was done in November 2017 showing no ischemia or infarction with normal left ventricular size and function. History of syncope, patient had tilt table test which revealed severe dizziness and hypotension back in February 2013. Reports improvement, no further episodes of syncope after increasing salt and fluid intake. Hypertension, new to monitor blood pressure on current medication Hyperlipidemia, monitor lipids Diabetes mellitus, followed and managed by Dr. Howe, seen during the hospitalization with Dr. Bedoya Bilateral moderate carotid stenosis, 40-59 percent per most recent carotid duplex done December 2019, continue to monitor. Dysphagia, Zenker diverticulum, status post Zenker diverticulum surgery done by Dr. Estrada. Clinical Quality Measures AMI/AHF: ASA po Prior to arrival: No DVT/VTE Risk/Contraindication: Risk Factor Score Per Nursin RFS Level Per Nursing on Admit: 2=Moderate CRISS FOSTER MD Sep 09, 2020 09:44
[2020-09-09] MEDS ORDERED: NS IV 1000 ML 1,000 ML IV ONE (09:45)
[2020-09-09] MEDS: PANTOPRAZOLE 40 MG (PROTONIX) TAB PO SCH (10:09)
[2020-09-09] MEDS: DIGOXIN 0.125 MG (LANOXIN) TAB PO SCH (10:10)
[2020-09-09] MEDS: APIXABAN 2.5 MG (ELIQUIS) TABLET PO SCH ×2 (10:11→20:39)
[2020-09-09] MEDS: DILTIAZEM 360 MG PO SCH (10:11)
[2020-09-09] MEDS: meTOproloL SUCCINATE 50 MG (TOPROL XL) TAB PO SCH ×2 (10:11→20:40)
--- NOTE | 2020-09-09 10:49 | NUR ---
1015 - Dr Hobson, Anesthesia, Ultrasound and RN at bedside for DONNIE cardioversion. 1030 - 2mg of Versed and 100mg of Propofol given. 1042 - Patient shocked at 120 Joules. Returned to Normal Sinus rhythm.
--- NOTE | 2020-09-09 10:59 | Cardioversion ---
Cardioversion PROCEDURE PHYSICIAN: Criss Hobson DATE OF PROCEDURE: 09/09/20 DIRECT EXTERNAL ELECTRICAL CARDIOVERSION: Indications: Atrial Fibrillation with rapid ventricular rate Preoperative diagnoses: Atrial Fibrillation with rapid ventricular rate Postoperative diagnosis: Sinus rhythm, Successful Electrical Cardioversion Anesthesia: By Anesthesia services Complications: None Specimen: None Contrast: 0 Flouroscopy: none Procedure Details: The patient was brought the porcelain enamel laborer after informed consent was taken, all the risks and complications were explained including the risk of stroke. Electrical cardioversion was carried out with anesthesia support with propofol. 120 joules of synchronized shock was delivered through external patches which promptly restored sinus rhythm. The patient tolerated the procedure well. Conclusions: Successful DONNIE with electrical cardioversion with no complication CRISS HOBSON MD Sep 09, 2020 10:59 am
[2020-09-09] MEDS ORDERED: AMIODARONE INJECTION 150 MG in D5W 100 ML IVPB 100 ML IV ONE (11:00)
[2020-09-09] MEDS: AMIODARONE INJECTION 450 MG in D5W IV SOLUTION (EXCEL) 250 ML IV SCH ×2 (15:02→20:36)
--- NOTE | 2020-09-09 15:26 | Anesthesia-General Post-Op ---
MAC Patient Condition Mental Status/LOC: Same as Preop Cardiovascular: Satisfactory Nausea/Vomiting: Absent Respiratory: Satisfactory Pain: Controlled Complications: Absent Post Op Complications Complications None Follow Up Care/Instructions Patient Instructions None needed. Anesthesiology Discharge Order Discharge Order Patient is doing well, no complaints, stable vital signs, no apparent adverse anesthesia problems. No complications reported per nursing. KATY LAMAR CRNA Sep 09, 2020 15:26
[2020-09-09] MEDS ORDERED: FUROSEMIDE 40 MG/4 ML INJ (LASIX) ONE (18:05)
[2020-09-09] MEDS: TAMSULOSIN 0.4 MG (FLOMAX) CAP PO SCH (18:16)
[2020-09-09] MEDS: AMIODARONE 200 MG (CORDARONE) TAB PO SCH (20:36)
[2020-09-09] MEDS: LOSARTAN 25 MG (COZAAR) TAB PO SCH (20:38)
[2020-09-10 03:31] LABS: BASOPHILS % (AUTO) 0 % (0-10); EOSINOPHILS % (AUTO) 0 % (0-10); HEMATOCRIT 37 % (40-54); HEMOGLOBIN 12.6 g/dL (13.3-17.7); LYMPHOCYTES % (AUTO) 6 % (12-44); MEAN CORPUSCULAR HEMOGLOBIN 29 pg (25-34); MEAN CORPUSCULAR HGB CONC 34 g/dL (32-36); MEAN CORPUSCULAR VOLUME 87 fL (80-99); MEAN PLATELET VOLUME 11.1 fL (9.0-12.2); MONOCYTES # (AUTO) 1.6 10^3/uL (0.0-1.0); MONOCYTES % (AUTO) 9 % (0-12); NEUTROPHILS # (AUTO) 15.3 10^3/uL (1.8-7.8); NEUTROPHILS % (AUTO) 85 % (42-75); PLATELET COUNT 194 10^3/uL (130-400); WHITE BLOOD COUNT 17.9 10^3/uL (4.3-11.0)
[2020-09-10 03:41] LABS: CHLORIDE 100 MMOL/L (98-107); POTASSIUM 3.7 MMOL/L (3.6-5.0); SODIUM 135 MMOL/L (135-145)
[2020-09-10 03:42] LABS: CALCIUM 8.3 MG/DL (8.5-10.1)
[2020-09-10 03:43] LABS: GLUCOSE 106 MG/DL (70-105)
[2020-09-10 03:44] LABS: CARBON DIOXIDE 22 MMOL/L (21-32)
[2020-09-10 03:47] LABS: GFR ESTIMATED > 60; PHOSPHORUS 3.3 MG/DL (2.3-4.7)
[2020-09-10 03:48] LABS: BAND NEUTROPHILS 1 %; BUN/CREATININE RATIO 21; LYMPHOCYTES % (MANUAL) 4 %; MONOCYTES % (MANUAL) 4 %; NEUTROPHILS % (MANUAL) 91 %; RBC MORPH NORMAL
[2020-09-10 03:49] LABS: MAGNESIUM 1.8 MG/DL (1.6-2.4)
--- NOTE | 2020-09-10 04:50 | Pulmonary Consultation ---
History of Present Illness History of Present Illness Date Seen by Provider: Sep 10, 2020 Time Seen by Provider: 04:47 Date of Admission Reason for Visit: paroxysmal atrial fibrillation Allergies and Home Medications Allergies Coded Allergies: No Known Drug Allergies (Unverified , 06/15/20) Home Medications Acetaminophen 500 Mg Tablet, 500-1,000 MG PO Q8H PRN for PAIN-MILD (1-4), (Reported) Albuterol Sulfate 2.5 Mg/3 Ml Vial.neb, 2.5 MG NEB Q6H PRN for SHORTNESS OF B REATH, (Reported) Alfuzosin HCl 10 Mg Tab.er.24h, 10 MG PO 1900, (Reported) Apixaban 2.5 Mg Tablet, 2.5 MG PO BID, (Reported) Atorvastatin Calcium 40 Mg Tablet, 40 MG PO HS, (Reported) Digoxin 125 Mcg Tablet, 125 MCG PO DAILY, (Reported) Diltiazem HCl 360 Mg Capsule.er, 360 MG PO DAILY, (Reported) Docusate Sodium 100 Mg Capsule, 100 MG PO DAILY PRN for CONSTIPATION-1ST LINE, (Reported) Losartan Potassium 25 Mg Tablet, 25 MG PO HS, (Reported) Metformin HCl 500 Mg Tab.er.24h, 500 MG PO 1700, (Reported) Metoprolol Succinate 50 Mg Tab.er.24h, 50 MG PO HS, (Reported) Pantoprazole Sodium 40 Mg Tablet.dr, 40 MG PO DAILY, (Reported) Prednisone 10 Mg Tab, MG PO DAILY, (Reported) TAKING A TAPER DOSE STILL HAS 1 DAY OF 20MG AND 2 DAYS OF 10MG DUE TO COMPLETE THERAPY [Bethanechol] 25 TAB, 25 MG PO TID, (Reported) Past Qrxkdfm-Zckfdm-Kvisjq Hx Past Med/Social Hx: Reviewed Nursing Past Med/Soc Hx Patient Social History Alcohol Use: Rarely Uses Alcohol Beverage of Choice: Wine Recreational Drug Use: No Former Smoker, Quit: Jul 26, 1984 2nd Hand Smoke Exposure: Yes Recent Foreign Travel: No Contact w/Someone Who Travel: No Recent Infectious Disease Expo: No Recent Hopitalizations: No Immunizations Up To Date Tetanus Booster (TDap): Unknown Date of Pneumonia Vaccine: Aug 03, 2018 Date of Influenza Vaccine: Aug 02, 2020 Seasonal Allergies Seasonal Allergies: Yes (RUNNY NOSE) Past Medical History Surgeries: Yes (ESPHAGAS SURG, HERNIA,R SHOULDER, BACK, CATARACTS, CTR) Orthopedic Respiratory: No Pneumonia Currently Using CPAP: No Currently Using BIPAP: No Cardiac: Yes (PAROXYSMAL A FIB) Atrial Fibrillation, Coronary Artery Disease, High Cholesterol, Hypertension, Valvular Heart Disease Neurological: Yes Stroke Reproductive Disorders: No Sexually Transmitted Disease: No HIV/AIDS: No Genitourinary: No Benign Prostatic Hyperpl Gastrointestinal: Yes (HX BLEEDING ULCER) Gastroesophageal Reflux, Diverticulosis, Polyps Musculoskeletal: Yes (ORTHO SURGERY) Arthritis, Chronic Back Pain Endocrine: Yes (DM TYPE II) Diabetes, Non-Insulin dep HEENT: Yes (GLASSES, DENTURES) Cataract Loss of Vision: Denies Hearing Impairment: Hard of Hearing, Bilateral Hearing Aide Cancer: No Psychosocial: No Integumentary: Yes (MILD) Eczema, Psoriasis Blood Disorders: Yes (HX ANEMIA -BLEEDING ULCER) Adverse Reaction/Blood Tranf: No (HAS HAD BLOOD WITH NO REACTION) Family Medical History FH: liver disease 19 MOTHER FH: lung cancer 19 FATHER Review of Systems Time Seen by Provider: 04:47 Sepsis Event Evaluation Height, Weight, BMI Height: 5'7.00" Weight: 140lbs. 0.0oz. 63.962430wg; 21.00 BMI Method:Stated Exam Exam Vital Signs Date Time Temp Pulse Resp B/P (MAP) Pulse Ox O2 Delivery O2 Flow Rate FiO2 09/10/20 03:46 36.5 70 20 123/65 95 Nasal Cannula 4.00 09/10/20 01:00 90 09/09/20 23:30 Nasal Cannula 4.00 09/09/20 23:03 37.4 88 22 135/72 96 Nasal Cannula 4.00 09/09/20 20:00 Nasal Cannula 4.00 09/09/20 20:00 36.0 94 132/66 94 09/09/20 19:00 83 09/09/20 16:00 36.0 09/09/20 13:00 66 09/09/20 11:40 36.3 09/09/20 10:45 103 12 103/52 97 09/09/20 10:15 156 10 131/107 95 09/09/20 09:00 Room Air 09/09/20 07:47 36.6 09/09/20 07:00 118 I & O 09/10/20 07:00 Intake Total 1833 ml Output Total 2175 ml Balance -342 ml Height & Weight Height: 5'7.00" Weight: 140lbs. 0.0oz. 63.557678li; 21.00 BMI Method:Stated General Appearance: No Apparent Distress, WD/WN HEENT: PERRL/EOMI, TMs Normal, Normal ENT Inspection, Pharynx Normal Neck: Full Range of Motion, Normal Inspection, Non Tender, Supple Respiratory: Lungs Clear, Normal Breath Sounds, No Respiratory Distress Cardiovascular: No Edema, No Murmur, Irregularly Irregular Capillary Refill: Less Than 3 Seconds Extremity: Normal Inspection, Non Tender, No Pedal Edema Neurologic/Psychiatric: Alert, Oriented x3, No Motor/Sensory Deficits, 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 Skin: Normal Color, Warm/Dry Results Lab Laboratory Tests 09/09/20 02:12 09/10/20 02:35 Assessment/Plan Assessment/Plan Hypoxia secondary to probable pneumonia -Check PCT -Start Zosyn -MRSA swab is negative -Await cultures. -Lasix - repeat today -Oxygen -May need home oxygen Afib with RVR Cardiology Ammio gtt currently Cardizem Digoxin Toprol Eliquis T2DM SSI HTN HLD BPH Continue home meds DVT prophylaxis: already receiving therapeutic anticoagulation BRITTANY BARRIOS DO Sep 10, 2020 04:50
[2020-09-10] MEDS ORDERED: FUROSEMIDE 40 MG/4 ML INJ (LASIX) IVP ONE (05:00)
[2020-09-10] MEDS ORDERED: POTASSIUM CL 10MEQ/50ML IVPB 50 ML IV SCH (05:00)
[2020-09-10] MEDS ORDERED: KCL 20 MEQ TAB (K-DUR) PO ONE ×2 (05:23→05:30)
[2020-09-10] MEDS: BETHANECHOL 25 MG (URECHOLINE) TAB PO SCH ×3 (05:28→17:48)
[2020-09-10 05:49] LABS: BILIRUBIN,URINE NEGATIVE (NEGATIVE); CLARITY,URINE CLEAR; COLOR,URINE YELLOW; GLUCOSE, URINE (UA) NEGATIVE (NEGATIVE); KETONES,URINE NEGATIVE (NEGATIVE); LEUKOCYTE ESTERASE ,URINE NEGATIVE (NEGATIVE); NITRITE,URINE NEGATIVE (NEGATIVE); PROTEIN,URINE NEGATIVE (NEGATIVE)
[2020-09-10 05:57] LABS: BACTERIA,URINE NEGATIVE /HPF; SQUAMOUS EPITHELIAL CELL,UR RARE /HPF
[2020-09-10] MEDS ORDERED: PIPERACILLIN/TAZO 4.5 GM/NS 100 ML IV ONE ×2 (08:00)
[2020-09-10] MEDS ORDERED: cefTRIAXone FOR IV USE 1,000 MG in WATER (STERILE) FOR INJECTION 10 ML IV SCH (08:15)
[2020-09-10] MEDS ORDERED: AZITHROMYCIN INJECTION 500 MG in NS (IVPB) 250 ML IV ONE (08:15)
--- NOTE | 2020-09-10 08:25 | Diagnostic Imaging Report ---
INDICATION: Dyspnea COMPARISON STUDY: Chest from yesterday. FINDINGS: Frontal view of the chest demonstrates stable bilateral pulmonary infiltrates mild cardiomegaly. No definite effusions are seen. Calcification of the aorta is again identified. IMPRESSION: Stable pulmonary infiltrates. Dictated by: Dictated on workstation # [id number]
[2020-09-10] MEDS ORDERED: KCL 10 MEQ TAB (MICRO K) PO ONE (09:00)
--- NOTE | 2020-09-10 10:29 | Cardiology Progress Note ---
Subjective Date Seen by Provider: Sep 10, 2020 Time Seen by Provider: 10:24 Subjective/Events-last exam Patient is laying down in bed, feeling well, denied any chest pain, chest x-ray showed bilateral infiltrates suggestive of pneumonia Review of Systems General: No Chills, No Night Sweats; Fatigue, Malaise; No Appetite, No Other HEENT: No Head Aches, No Visual Changes, No Eye Pain, No Ear Pain, No Dysphasia, No Sinus Congestion, No Post Nasal Drip, No Sore Throat, No Other Pulmonary: No Dyspnea, No Cough, No Pleuritic Chest Pain, No Other Cardiovascular: No: Chest Pain, Palpitations, Orthopnea, Paroxysmal Noc. Dyspn ea, Edema, Lt Headedness, Other Objective-Cardiology Exam Last Set of Vital Signs Vital Signs 09/10/20 07:13 Temp 36.6 Pulse 65 Resp 18 B/P (MAP) 123/66 Pulse Ox 95 O2 Delivery Nasal Cannula O2 Flow Rate 4.00 Capillary Refill : Less Than 3 Seconds I&O Intake and Output 09/10/20 00:00 Intake Total 1958 ml Output Total 2575 ml Balance -617 ml Intake Oral 755 ml IV Total 1203 ml Output Urine Total 2575 ml General: Alert, Oriented X3, Cooperative, No Acute Distress HEENT: Atraumatic, PERRLA Lungs: Normal Air Movement, Other (bilateral rhonchi) Heart: Normal S1, Normal S2, No Murmurs, Other (atrial fibrillation with rapid ventricular response) Abdomen: Normal Bowel Sounds, Soft, No Tenderness, No Hepatosplenomegaly, No Masses Extremities: No Clubbing, No Cyanosis, No Edema, Normal Pulses, No Tenderness/Swelling Skin: No Rashes, No Breakdown, No Significant Lesion Neuro: Normal Gait, Normal Speech, Strength at 5/5 X4 Ext, Normal Tone, Sensation Intact Psych/Mental Status: Mental Status NL, Mood NL Results Lab Laboratory Tests 09/10/20 02:35 A/P-Cardiology Admission Diagnosis Atrial fibrillation Tachycardia Hypertension Hyperlipidemia Assessment/Plan Paroxysmal atrial fibrillation/flutter, rapid ventricular response. Successful electrical cardioversion, still in sinus rhythm and tolerating medication well. Bilateral pulmonary infiltrate, leukocytosis and elevated pro-, calcitonin, being treated for pneumonia, I appreciate Dr. Rocha's input [id number] score of 6, yearly risk of stroke without oral anticoagulation is 9.8 percent, maintained on Eliquis History of CVA with left facial drooping, left arm weakness. 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 Patient had initial workup at hospital in [place]. MRI of the head showed subacute infarct, patient is maintained on Eliquis. Continue current medication monitor. Dyspnea, improving. Following with Dr. Rocha after having abnormal CT chest, underwent bronchoscopy revealing strep, has completed antibiotics, patient reports improvement of symptoms, started on 2019 on antibiotic for pneumonia. Managed by Dr. Rocha History of GI bleed. Was hospitalized late in October 2017, had blood transfusion and underwent EGD showing duodenal ulcer that has a fibrinous clot on top of it. Currently feeling better. Chest pain, nonspecific etiology-resolved. Last stress test was done in November 2017 showing no ischemia or infarction with normal left ventricular size and function. History of syncope, patient had tilt table test which revealed severe dizziness and hypotension back in February 2013. Reports improvement, no further episodes of syncope after increasing salt and fluid intake. Hypertension, new to monitor blood pressure on current medication Hyperlipidemia, monitor lipids Diabetes mellitus, followed and managed by Dr. Howe, seen during the hospi talization with Dr. Bedoya Bilateral moderate carotid stenosis, 40-59 percent per most recent carotid duplex done December 2019, continue to monitor. Dysphagia, Zenker diverticulum, status post Zenker diverticulum surgery done by Dr. Estrada. Clinical Quality Measures AMI/AHF: ASA po Prior to arrival: No DVT/VTE Risk/Contraindication: Risk Factor Score Per Nursin RFS Level Per Nursing on Admit: 2=Moderate CRISS FOSTER MD Sep 10, 2020 10:28
[2020-09-10] MEDS: DIGOXIN 0.125 MG (LANOXIN) TAB PO SCH (10:33)
[2020-09-10] MEDS: DILTIAZEM 360 MG PO SCH (10:34)
[2020-09-10] MEDS: meTOproloL SUCCINATE 50 MG (TOPROL XL) TAB PO SCH ×2 (10:36→20:18)
[2020-09-10] MEDS: APIXABAN 2.5 MG (ELIQUIS) TABLET PO SCH ×2 (10:37→20:18)
[2020-09-10] MEDS: AMIODARONE 200 MG (CORDARONE) TAB PO SCH ×2 (10:39→20:19)
--- NOTE | 2020-09-10 11:35 | Progress Note - Hospitalist ---
EME[employer]ER MED STUDENT 09/10/20 1135: Subjective HPI/CC On Admission Time Seen by Provider: 08:15 Subjective/Events-last exam Pt fully alert and oriented. Pt states he feels 'much better' compared to yesterday. Pt denies any new complaints at this time. Pt denies any respiratory complaints though his CXR and procalcitonin today suggested a bacterial pneumonia; pt denies cough, increased sputum production, SOB, chest pain, fever, palpitations or N/Ving. Pt was on 4LPM of O2 when I visited him, but removing it kept his 02 sat around 93-[address] Ocampo d/c the nasal cannula, pt on room air now. Review of Systems General: No Chills, No Night Sweats, No Fatigue Pulmonary: No Dyspnea, No Cough, No Pleuritic Chest Pain Cardiovascular: No: Chest Pain, Palpitations, Lt Headedness Gastrointestinal: No: Nausea, Vomiting, Abdominal Pain, Diarrhea, Constipation Genitourinary: No Dysuria, No Incontinence Objective Exam Vital Signs Vital Signs Date Time Temp Pulse Resp B/P (MAP) Pulse Ox O2 Delivery O2 Flow Rate FiO2 09/10/20 11:23 36.9 72 20 132/67 92 Room Air 09/10/20 07:13 4.00 Capillary Refill : Less Than 3 Seconds Results/Procedures Lab Laboratory Tests 09/10/20 02:35 Patient resulted labs reviewed. Imaging: Reviewed Imaging Report Assessment/Plan Assessment and Plan Assess & Plan/Chief Complaint Acute Hypoxic Respiratory Failure Likely 2/2 HAP HAP 09/10 CXR shows stable b/l pulm infiltrates. WBC today was 17.9 from 14.4 Procalcitonin today was 1.82. Repeat tomorrow. 09/10 U/A negative. Manager Enrollment consulted, appreciate recs. 09/07 MRSA screen negative Pt started on Zosyn I.V. Repeat CXR tomorrow. Legionella and Strep Pneumo Antigen testing ordered. Afib with RVR Pt cardioverted yesterday. RRR restored. HR in 70's during visit. Pt stable from this standpoint. Continue home med regimen by cardiology's recommendations. T2DM SSI HTN HLD BPH Continue home meds DVT prophylaxis: Continue therapeutic anticoagulation. pt already covered by anticoagulation for afib . Clinical Quality Measures AMI/AHF: ASA po Prior to arrival: No DVT/VTE Risk/Contraindication: Risk Factor Score Per Nursin RFS Level Per Nursing on Admit: 2=Moderate DESHAWN OCAMPO MD 09/10/20 1157: Subjective HPI/CC On Admission Date Seen by Provider: Sep 10, 2020 Time Seen by Provider: 09:55 Objective Exam General Appearance: No Apparent Distress, WD/WN Respiratory: Lungs Clear, Normal Breath Sounds, No Respiratory Distress Cardiovascular: Regular Rate, Rhythm, No Edema, No Murmur Gastrointestinal: Normal Bowel Sounds, Non Tender, Soft Extremity: Normal Inspection, Non Tender, No Pedal Edema Neurologic/Psychiatric: Alert, Oriented x3, No Motor/Sensory Deficits, 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 Skin: Normal Color, Warm/Dry Results/Procedures Imaging: Reviewed Imaging Report Assessment/Plan Assessment and Plan Assess & Plan/Chief Complaint Kamran Hernandez was admitted with AFib with RVR. He underwent cardioversion yesterday and was in normal sinus rhythm on my examination. He is being maintained on oral medications for his AFib at this time. He has had a persistent pulmonary infiltrate on chest xray. He has been afebrile without fever, dyspnea, or cough. His WBC has been mildly elevated, but his procalcitonin remained normal. After his cardioversion, he developed dyspnea and cough. His procalcitonin is now elevated. We are now treating him for pneumonia for which he was started on Zosyn. Diagnosis/Problems Diagnosis/Problems (1) Atrial fibrillation with RVR Status: Acute (2) PNA (pneumonia) Status: Acute Supervisory-Addendum Brief Verification & Attestation Participated in pt care: history, MDM, physical Personally performed: exam, history, MDM, supervision of care Care discussed with: Medical Student Procedures: n/a Results interpretation: Verified all documentation Verification and Attestation of Medical Student E/M Service A medical student performed and documented this service in my presence. I reviewed and verified all information documented by the medical student and made modifications to such information, when appropriate. I personally performed the physical exam and medical decision making. Deshawn Ocampo, Sep 10, 2020,11:56 ENDER HENDRICKSON MED STUDENT Sep 10, 2020 11:35 DESHAWN OCAMPO MD Sep 10, 2020 11:57
--- NOTE | 2020-09-10 11:50 | NUR ---
THIS NURSE CLARIFIED WITH DR FOSTER TO DC CARDIZEM 240 MG.
[2020-09-10] MEDS: PIPERACILLIN/TAZOBACTAM (BULK) 4.5 GM in NS (IVPB) 100 ML IV SCH ×2 (17:49→21:14)
[2020-09-10] MEDS: TAMSULOSIN 0.4 MG (FLOMAX) CAP PO SCH (17:51)
[2020-09-10] MEDS: LOSARTAN 25 MG (COZAAR) TAB PO SCH (20:18)
[2020-09-11 03:45] LABS: BASOPHILS % (AUTO) 0 % (0-10); EOSINOPHILS # (AUTO) 0.1 10^3/uL (0.0-0.3); EOSINOPHILS % (AUTO) 1 % (0-10); HEMATOCRIT 37 % (40-54); HEMOGLOBIN 12.2 g/dL (13.3-17.7); LYMPHOCYTES # (AUTO) 1.1 10^3/uL (1.0-4.0); LYMPHOCYTES % (AUTO) 9 % (12-44); MEAN CORPUSCULAR HEMOGLOBIN 29 pg (25-34); MEAN CORPUSCULAR HGB CONC 33 g/dL (32-36); MEAN CORPUSCULAR VOLUME 87 fL (80-99); MONOCYTES # (AUTO) 1.4 10^3/uL (0.0-1.0); MONOCYTES % (AUTO) 11 % (0-12); NEUTROPHILS # (AUTO) 10.5 10^3/uL (1.8-7.8); NEUTROPHILS % (AUTO) 80 % (42-75); PLATELET COUNT 181 10^3/uL (130-400); WHITE BLOOD COUNT 13.2 10^3/uL (4.3-11.0)
[2020-09-11 03:55] LABS: CHLORIDE 101 MMOL/L (98-107); POTASSIUM 3.9 MMOL/L (3.6-5.0); SODIUM 134 MMOL/L (135-145)
[2020-09-11 03:56] LABS: CALCIUM 8.4 MG/DL (8.5-10.1); GLUCOSE 100 MG/DL (70-105)
[2020-09-11 03:58] LABS: CARBON DIOXIDE 22 MMOL/L (21-32)
[2020-09-11 04:00] LABS: CREATININE SERUM 0.81 MG/DL (0.60-1.30); GFR ESTIMATED > 60; PHOSPHORUS 2.7 MG/DL (2.3-4.7)
[2020-09-11 04:01] LABS: BUN/CREATININE RATIO 23
[2020-09-11 04:02] LABS: MAGNESIUM 1.9 MG/DL (1.6-2.4)
--- NOTE | 2020-09-11 04:47 | Pulmonary Progress Note ---
Subjective Time Seen by a Provider: 04:46 Subjective/Events-last exam Pt appears to be doing better. Sepsis Event Evaluation Height, Weight, BMI Height: 5'7.00" Weight: 140lbs. 0.0oz. 63.366610zv; 21.00 BMI Method:Stated Exam Exam Vital Signs Date Time Temp Pulse Resp B/P (MAP) Pulse Ox O2 Delivery O2 Flow Rate FiO2 09/11/20 03:13 36.0 63 18 126/67 92 Nasal Cannula 2.00 09/11/20 01:00 58 09/10/20 23:30 93 Nasal Cannula 2.00 09/10/20 23:12 36.5 61 16 123/64 93 Nasal Cannula 2.00 09/10/20 20:49 95 Room Air 09/10/20 20:36 36.5 66 19 106/60 93 Room Air 09/10/20 19:00 60 09/10/20 17:00 36.9 66 20 107/69 95 Room Air 09/10/20 12:59 74 09/10/20 11:23 36.9 72 20 132/67 92 Room Air 09/10/20 09:00 Nasal Cannula 4.00 09/10/20 07:13 36.6 65 18 123/66 95 Nasal Cannula 4.00 09/10/20 07:00 68 I & O 09/11/20 07:00 Intake Total 2059 ml Output Total 1850 ml Balance 209 ml Height & Weight Height: 5'7.00" Weight: 140lbs. 0.0oz. 63.646525ts; 21.00 BMI Method:Stated General Appearance: No Apparent Distress, WD/WN HEENT: PERRL/EOMI, TMs Normal, Normal ENT Inspection, Pharynx Normal Neck: Full Range of Motion, Normal Inspection, Non Tender, Supple Respiratory: Lungs Clear, Normal Breath Sounds, No Respiratory Distress Cardiovascular: Regular Rate, Rhythm, No Edema, No Murmur Capillary Refill: Less Than 3 Seconds Extremity: Normal Inspection, Non Tender, No Pedal Edema Neurologic/Psychiatric: Alert, Oriented x3, No Motor/Sensory Deficits, 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 Skin: Normal Color, Warm/Dry Results Lab Laboratory Tests 09/10/20 02:35 09/11/20 03:36 Assessment/Plan Assessment/Plan Hypoxia secondary to probable pneumonia -Continue Zosyn -MRSA swab is negative -Await cultures. -Lasix -Oxygen -May need home oxygen Afib with RVR Cardiology Eliquis T2DM SSI HTN HLD BPH Continue home meds DVT prophylaxis: already receiving therapeutic anticoagulation BRITTANY BARRIOS DO Sep 11, 2020 04:47
[2020-09-11] MEDS: PIPERACILLIN/TAZOBACTAM (BULK) 4.5 GM in NS (IVPB) 100 ML IV SCH (05:31)
[2020-09-11] MEDS: BETHANECHOL 25 MG (URECHOLINE) TAB PO SCH (05:31)
--- NOTE | 2020-09-11 08:25 | Diagnostic Imaging Report ---
INDICATION: Dyspnea. COMPARISON: 09/10/2020. TECHNIQUE: Single radiograph of the chest dated 09/11/2020. FINDINGS: The cardiac silhouette is stable. No significant pulmonary vascular congestion. Extensive bilateral pulmonary infiltrates are again identified, minimally improved within the right lung base. No significant pleural effusion. No pneumothorax. Osseous structures are stable. IMPRESSION: Minimally improved though persistent extensive bilateral pulmonary infiltrates. Dictated by: Dictated on workstation # [id number]
[2020-09-11] MEDS ORDERED: AZITHROMYCIN 250 MG TAB (ZITHROMAX) PO SCH (09:00)
[2020-09-11] MEDS: DILTIAZEM 360 MG PO SCH (09:47)
[2020-09-11] MEDS: DIGOXIN 0.125 MG (LANOXIN) TAB PO SCH (09:48)
[2020-09-11] MEDS: PANTOPRAZOLE 40 MG (PROTONIX) TAB PO SCH (09:48)
[2020-09-11] MEDS: AMIODARONE 200 MG (CORDARONE) TAB PO SCH (09:49)
[2020-09-11] MEDS: meTOproloL SUCCINATE 50 MG (TOPROL XL) TAB PO SCH (09:49)
[2020-09-11] MEDS: APIXABAN 2.5 MG (ELIQUIS) TABLET PO SCH (09:50)
--- NOTE | 2020-09-11 10:06 | Cardiology Progress Note ---
Subjective Date Seen by Provider: Sep 11, 2020 Time Seen by Provider: 10:05 Subjective/Events-last exam Patient was seen at bedside sitting comfortably, feeling better. Breathing better. Not requiring oxygen Review of Systems General: No Chills, No Night Sweats, No Fatigue, No Malaise, No Appetite, No Other HEENT: No Head Aches, No Visual Changes, No Eye Pain, No Ear Pain, No Dysphasia, No Sinus Congestion, No Post Nasal Drip, No Sore Throat, No Other Pulmonary: No Dyspnea, No Cough, No Pleuritic Chest Pain, No Other Cardiovascular: No: Chest Pain, Palpitations, Orthopnea, Paroxysmal Noc. Dyspnea, Edema, Lt Headedness, Other Objective-Cardiology Exam Last Set of Vital Signs Vital Signs 09/11/20 09/11/20 03:13 08:00 Temp 36.6 Pulse 78 Resp 20 B/P (MAP) 135/62 Pulse Ox 94 O2 Delivery Room Air O2 Flow Rate 2.00 Capillary Refill : Less Than 3 Seconds I&O Intake and Output 09/10/20 23:59 Intake Total 1959 ml Output Total 3025 ml Balance -1066 ml Intake Oral 1460 ml IV Total 499 ml Output Urine Total 3025 ml General: Alert, Oriented X3, Cooperative, No Acute Distress HEENT: Atraumatic, PERRLA Lungs: Normal Air Movement, Other (bilateral rhonchi) Heart: Normal S1, Normal S2, No Murmurs, Other (atrial fibrillation with rapid ventricular response) Abdomen: Normal Bowel Sounds, Soft, No Tenderness, No Hepatosplenomegaly, No Masses Extremities: No Clubbing, No Cyanosis, No Edema, Normal Pulses, No T enderness/Swelling Skin: No Rashes, No Breakdown, No Significant Lesion Neuro: Normal Gait, Normal Speech, Strength at 5/5 X4 Ext, Normal Tone, Sensation Intact Psych/Mental Status: Mental Status NL, Mood NL Results Lab Laboratory Tests 09/11/20 03:36 A/P-Cardiology Admission Diagnosis Atrial fibrillation Tachycardia Hypertension Hyperlipidemia Assessment/Plan Paroxysmal atrial fibrillation/flutter, rapid ventricular response. Successful electrical cardioversion, still in sinus rhythm and tolerating medication well. Bilateral pulmonary infiltrate, leukocytosis and elevated procalcitonin, initial level on admission was normal, being treated for pneumonia, managed by Dr. 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 Patient had initial workup at hospital in [place]. MRI of the head showed subacute infarct, patient is maintained on Eliquis. Continue current medication monitor. Dyspnea, improving. Following with Dr. Rocha after having abnormal CT chest, underwent bronchoscopy revealing strep, has completed antibiotics, patient reports improvement of symptoms, started on 2019 on antibiotic for pneumonia. Managed by Dr. Rocha History of GI bleed. Was hospitalized late in October 2017, had blood transfusion and underwent EGD showing duodenal ulcer that has a fibrinous clot on top of it. Currently feeling better. Chest pain, nonspecific etiology-resolved. Last stress test was done in November 2017 showing no ischemia or infarction with normal left ventricular size and function. History of syncope, patient had tilt table test which revealed severe dizziness and hypotension back in February 2013. Reports improvement, no further episodes of syncope after increasing salt and fluid intake. Hypertension, new to monitor blood pressure on current medication Hyperlipidemia, monitor lipids Diabetes mellitus, followed and managed by Dr. Howe, seen during the hospitalization with Dr. Bedoya Bilateral moderate carotid stenosis, 40-59 percent per most recent carotid duplex done December 2019, continue to monitor. Dysphagia, Zenker diverticulum, status post Zenker diverticulum surgery done by Dr. Estrada. Clinical Quality Measures AMI/AHF: ASA po Prior to arrival: No DVT/VTE Risk/Contraindication: Risk Factor Score Per Nursin RFS Level Per Nursing on Admit: 2=Moderate CRISS FOSTER MD Sep 11, 2020 10:06
--- NOTE | 2020-09-11 10:24 | Cardiology Discharge Summary ---
Discharge Summary Hospital Course Problems Reviewed?: Yes Hospital Course Date of Admission: Sep 09, 2020 at 10:25 am Admission Diagnosis : Family Physician/Provider: Tariq Howe DO Date of Discharge: 09/11/20 Discharge Diagnosis: [ Paroxysmal atrial fibrillation Pneumonia Coronary artery disease Hypertension Hyperlipidemia] Hospital Course: [ Paroxysmal atrial fibrillation/flutter, rapid ventricular response. Successful electrical cardioversion, still in sinus rhythm and tolerating medication well. Bilateral pulmonary infiltrate, leukocytosis and elevated procalcitonin, initial level on admission was normal, being treated for pneumonia, managed by Dr. Rocha [id number] score of 6, yearly risk of stroke without oral anticoagulation is 9.8 percent, maintained on Eliquis History of CVA with left facial drooping, left arm weakness. 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 Patient had initial workup at hospital in [place]. MRI of the head showed subacute infarct, patient is maintained on Eliquis. Continue current medication monitor. Dyspnea, improving. Following with Dr. Rocha after having abnormal CT chest, underwent bronchoscopy revealing strep, has completed antibiotics, patient reports improvement of symptoms, started on 2019 on antibiotic for pneumonia. Managed by Dr. Rocha History of GI bleed. Was hospitalized late in October 2017, had blood transfusion and underwent EGD showing duodenal ulcer that has a fibrinous clot on top of it. Currently feeling better. Chest pain, nonspecific etiology-resolved. Last stress test was done in November 2017 showing no ischemia or infarction with normal left ventricular size and function. History of syncope, patient had tilt table test which revealed severe dizziness and hypotension back in February 2013. Reports improvement, no further episodes of syncope after increasing salt and fluid intake. Hypertension, new to monitor blood pressure on current medication Hyperlipidemia, monitor lipids Diabetes mellitus, followed and managed by Dr. Howe, seen during the hospitalization with Dr. Bedoya Bilateral moderate carotid stenosis, 40-59 percent per most recent carotid duplex done December 2019, continue to monitor. Dysphagia, Zenker diverticulum, status post Zenker diverticulum surgery done by Dr. Estrada.] Labs and Pending Lab Test: Laboratory Tests 09/11/20 03:36: White Blood Count 13.2H, Red Blood Count 4.25L, Hemoglobin 12.2L, Hematocrit 37L , Mean Corpuscular Volume 87, Mean Corpuscular Hemoglobin 29, Mean Corpuscular Hemoglobin Concent 33, Red Cell Distribution Width 15.1H, Platelet Count 181, Mean Platelet Volume 10.0, Immature Granulocyte % (Auto) 0, Neutrophils (%) (Auto) 80H, Lymphocytes (%) (Auto) 9L, Monocytes (%) (Auto) 11, Eosinophils (%) (Auto) 1, Basophils (%) (Auto) 0, Neutrophils # (Auto) 10.5H, Lymphocytes # ( Auto) 1.1, Monocytes # (Auto) 1.4H, Eosinophils # (Auto) 0.1, Basophils # (Auto) 0.0, Immature Granulocyte # (Auto) 0.0, Sodium Level 134L, Potassium Level 3.9, Chloride Level 101, Carbon Dioxide Level 22, Anion Gap 11, Blood Urea Nitrogen 19H, Creatinine 0.81, Estimat Glomerular Filtration Rate > 60, BUN/Creatinine Ratio 23, Glucose Level 100, Calcium Level 8.4L, Phosphorus Level 2.7, Magnesium Level 1.9, C-Reactive Protein High Sensitivity 10.57H Microbiology 09/07/20 MRSA Screen - Final, Complete MRSA not isolated Home Meds Active Reported [Bethanechol] 25 Tab 25 Mg PO TID Stool Softener (Docusate Sodium) 100 Mg Capsule 100 Mg PO DAILY PRN Tylenol Extra Strength (Acetaminophen) 500 Mg Tablet 500-1,000 Mg PO Q8H PRN Pantoprazole Sodium 40 Mg Tablet.dr 40 Mg PO DAILY Toprol Xl (Metoprolol Succinate) 50 Mg Tab.er.24h 50 Mg PO HS Metformin HCl ER (Metformin HCl) 500 Mg Tab.er.24h 500 Mg PO 1700 Prednisone 10 Mg Tab Mg PO DAILY TAKING A TAPER DOSE STILL HAS 1 DAY OF 20MG AND 2 DAYS OF 10MG DUE TO COMPLETE THERAPY Eliquis (Apixaban) 2.5 Mg Tablet 2.5 Mg PO BID Losartan Potassium 25 Mg Tablet 25 Mg PO HS Albuterol Sulfate 2.5 Mg/3 Ml Vial.neb 2.5 Mg NEB Q6H PRN Diltiazem ER (Diltiazem HCl) 360 Mg Capsule.er 360 Mg PO DAILY Digoxin 125 Mcg Tablet 125 Mcg PO DAILY Alfuzosin HCl ER (Alfuzosin HCl) 10 Mg Tab.er.24h 10 Mg PO 1900 Atorvastatin Calcium 40 Mg Tablet 40 Mg PO HS Assessment/Pt DC Instructions Arrangement for follow-up in Dr. Hobson's office in [address] Rocha's office Discharge Physical Examination Allergies: Coded Allergies: No Known Drug Allergies (Unverified , 06/15/20) General Appearance: No Apparent Distress, WD/WN HEENT: PERRL/EOMI, TMs Normal, Normal ENT Inspection, Pharynx Normal Respiratory: Chest Non Tender, No Accessory Muscle Use, Crackles Cardiovascular: Regular Rate, Rhythm, No Edema, No Gallop, No JVD, No Murmur Gastrointestinal: Normal Bowel Sounds, No Organomegaly, No Pulsatile Mass, Non Tender Extremity: Normal Capillary Refill, Normal Inspection, No Pedal Edema Skin: Normal Color, Warm/Dry Neurologic/Psychiatric: Alert, Oriented x3, No Motor/Sensory Deficits Clinical Quality Measures AMI/AHF: ASA po Prior to arrival: No DVT/VTE Risk/Contraindication: Risk Factor Score Per Nursin RFS Level Per Nursing on Admit: 2=Moderate CRISS HOBSON MD Sep 11, 2020 10:24 am
[2020-09-11] MEDS ORDERED: AMIO200T6 PO (10:26)
[2020-09-11] MEDS ORDERED: AMOX-358 PO (10:39)
--- NOTE | 2020-09-11 11:42 | Progress Note - Hospitalist ---
ENDER HENDRICKSON MED STUDENT 09/11/20 1142: Subjective HPI/CC On Admission Time Seen by Provider: 08:50 Subjective/Events-last exam Pt feels well today. Pt denies any complaints. Pt on room air during visit. Pt denies any issues with ambulation or food intake. Pt denies chest pain, cough, sputum production, or abd pain. Pt VS stable with RRR. Review of Systems General: No Chills, No Night Sweats, No Fatigue Pulmonary: No Dyspnea, No Cough, No Pleuritic Chest Pain Cardiovascular: No: Chest Pain, Palpitations, Lt Headedness Gastrointestinal: No: Nausea, Vomiting, Abdominal Pain, Diarrhea, Constipation Genitourinary: No Dysuria, No Incontinence Objective Exam Vital Signs Vital Signs Date Time Temp Pulse Resp B/P (MAP) Pulse Ox O2 Delivery O2 Flow Rate FiO2 09/11/20 08:00 Room Air 09/11/20 08:00 36.6 78 20 135/62 94 09/11/20 03:13 2.00 Capillary Refill : Less Than 3 Seconds General Appearance: No Apparent Distress, WD/WN HEENT: PERRL/EOMI, Normal ENT Inspection Neck: Full Range of Motion, Normal Inspection Respiratory: No Accessory Muscle Use, No Respiratory Distress, Wheezing (b/l lower lobes ) Cardiovascular: Regular Rate, Rhythm, No Edema, No Murmur, Normal Peripheral Pulses Gastrointestinal: Non Tender, Soft Rectal: Deferred Extremity: Normal Capillary Refill, Normal Inspection Neurologic/Psychiatric: Alert, Oriented x3, 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, sternman II-XII Norm as Tested Skin: Normal Color, Warm/Dry Results/Procedures Lab Laboratory Tests 09/11/20 03:36 Patient resulted labs reviewed. Imaging: Reviewed Imaging Report Assessment/Plan Assessment and Plan Assess & Plan/Chief Complaint HAP d/c zosyn and start pt on Augmentin for outpt control. 09/11 CXR shows minimal improvement in bilateral infiltrates versus yesterdays CXR. WBC today was 13.2 from 17.9 [employer] Representative consulted, appreciate recs. Legionella and Strep Pneumo Antigen pending. Pt on room air. Plan for discharge today and outpt management. Afib with RVR Pt cardioverted. RRR restored. Pt stable from this standpoint. Continue home med regimen by cardiology's recommendations. T2DM SSI. HTN HLD BPH Continue home meds DVT prophylaxis: Continue therapeutic anticoagulation. pt already covered by anticoagulation for afib. Acute Hypoxic Respiratory Failure, Resolved. Clinical Quality Measures AMI/AHF: ASA po Prior to arrival: No DVT/VTE Risk/Contraindication: Risk Factor Score Per Nursin RFS Level Per Nursing on Admit: 2=Moderate HELENE MENDOSA MD 09/11/20 1459: Assessment/Plan Assessment and Plan Assess & Plan/Chief Complaint Pt doing very well. Was transferred out of stepdown unit and requesting discharge home. Discussed with Dr Rocha and Dr Hobson and all on board with plan for DC home. He was transitioned to Augmentin to cover for pneumonia. Supervisory-Addendum Brief Verification & Attestation Participated in pt care: history, MDM, physical Personally performed: exam, history, MDM, supervision of care Care discussed with: Medical Student Procedures: n/a Results interpretation: Verified all documentation Verification and Attestation of Medical Student E/M Service A medical student performed and documented this service in my presence. I reviewed and verified all information documented by the medical student and made modifications to such information, when appropriate. I personally performed the physical exam and medical decision making. Helene Mendosa, Sep 11, 2020,14:58 ENDER HENDRICKSON MED STUDENT Sep 11, 2020 11:42 HELENE MENDOSA MD Sep 11, 2020 14:59
== END 2020-09-11 13:30 | disposition home or self-care (01) | DRG 308 ==
LOC: EDUNIT# 10:53 → ER 10:55 → ICU 11:30 → INTOOBSV 11:30 → EDLOC 11:30 → OBSVTOIN 09-09 10:25 → CSD 09-09 17:50 → 4TH 09-11 07:58
PROVIDERS: ADMIT Internal Medicine Cardiovascular Disease; ATTEND Internal Medicine Cardiovascular Disease
PROC: 5A2204Z Restoration of Cardiac Rhythm, Single (ICD-10-PCS; principal; 2020-09-09)
DX: I48.0 Paroxysmal atrial fibrillation (principal); J18.9 Pneumonia, unspecified organism; J96.01 Acute respiratory failure with hypoxia; E11.9 Type 2 diabetes mellitus without complications; I10 Essential (primary) hypertension; E78.5 Hyperlipidemia, unspecified; N40.0 Benign prostatic hyperplasia without lower urinary tract symptoms; I25.10 Atherosclerotic heart disease of native coronary artery without angina pectoris; J43.9 Emphysema, unspecified; K21.9 Gastro-esophageal reflux disease without esophagitis; G89.29 Other chronic pain; M19.90 Unspecified osteoarthritis, unspecified site; K57.90 Diverticulosis of intestine, part unspecified, without perforation or abscess without bleeding; I65.23 Occlusion and stenosis of bilateral carotid arteries; Z86.73 Personal history of transient ischemic attack (TIA), and cerebral infarction without residual deficits
CPT/HCPCS: 36415; 71045; 80048; 80053; 80162; 81000; 83735; 83880; 84100; 84145; 84484; 85007; 85025; 85027; 85610; 85730; 86141; 87081; 87635; 93005; 93041; 93306; 93312; 93320; 93325

== ENCOUNTER → 2020-10-02 | Outpatient (CLI) | payer MEDICARE, OTHER ==
[~2020-10-02] MED LIST changes: +ACET-2267 PO; +AMIO200T6 PO; +AMOX-358 PO; +BETHANECHOL PO; +CATHETER FLUSH 10 ML SYR IV PRN; +DOCU-238 PO; +HOLD METFORMIN - RECEIVED CONTRAST 20 ML VIAL IV SCH; +IOHEXOL 350 MG/ML 100 ML (OMNIPAQUE 350) VIAL IV ONE; +NS 100 ML (IVPB) BAG IV ONE; +PANT40TA52 PO; +PRD10T PO
[2020-10-02 09:12] LABS: BUN/CREATININE RATIO 14; CREATININE SERUM 1.01 MG/DL (0.60-1.30); GFR ESTIMATED > 60
--- NOTE | 2020-10-02 09:59 | Diagnostic Imaging Report ---
PROCEDURE: CT chest with contrast only. TECHNIQUE: Multiple contiguous axial images were obtained through the chest after administration of intravenous contrast. Auto Exposure Controls were utilized during the CT exam to meet ALARA standards for radiation dose reduction. DATE: October 02, 2020. COMPARISON: Chest radiograph September 11, 2020. INDICATION: 85-year-old male, cough. Pneumonia. FINDINGS: There is a 5 mm nodule in the right upper lobe on axial image 51. There is a 3 mm right upper lobe pulmonary nodule on axial image 53. There is a right upper lobe pulmonary nodule on axial image 85 which measures 9 mm in size. This is new since August 05, 2017. This is also new since May 31, 2020. There is patchy multifocal airspace consolidation involving the right upper lobe, left lower lobe, and left upper lobe. There are prominent findings of upper lobe predominant emphysema. There is mild multilobar bronchiectasis with which is most pronounced in the lower lobes. There is no pneumothorax. There is no sizable pleural effusion. There is no identified pulmonary embolus. There are coronary artery calcifications and additional areas of atherosclerotic disease. There is no pericardial effusion. There is no identified abnormally enlarged mediastinal, hilar, or axillary lymph node which meets CT size criteria for adenopathy. There are multiple calcifications in the liver and spleen most consistent with the sequela of prior granulomatous disease. There is an incompletely imaged low-attenuation left renal lesion on axial image 166 measuring at least 3.3 x 2.0 cm in size with internal attenuation of the lesion compatible with a benign cyst in its imaged portions. There are multilevel degenerative changes of the spine. There is bilateral glenohumeral arthritis. There is no identified acute bony abnormality. There is a benign vertebral body hemangioma involving T7. IMPRESSION: CT CHEST. 1. Patchy areas of airspace consolidation in the left upper lobe, right upper lobe, and left lower lobe which are similar in appearance to May 31, 2020. This potentially could relate to a pneumonitis given relative stability since May 31, 2020. Findings relating to multifocal pneumonia including atypical infectious etiologies such as COVID 19 would also be considered. There is lack of a progression since May 31, 2020 which would argue against active infection. Other chronic airspace consolidative processes are also in the differential diagnosis. 2. Extensive findings of emphysema as well as interstitial lung disease. Faxed to [facility]Infection control at 9:58 a.m. by cvbo. Dictated by: Dictated on workstation # [id number]
== END ==
LOC: RAD 08:19
PROVIDERS: ATTEND Nurse Practitioner Family
DX: J43.9 Emphysema, unspecified (principal); J84.9 Interstitial pulmonary disease, unspecified
CPT/HCPCS: 36415; 71260; 82565; 84520

== ENCOUNTER 2020-10-21 01:07 | Emergency (ER) | payer MEDICARE, OTHER ==
[~2020-10-21] VITALS: Ht 170 cm; Wt 58.0 kg
[~2020-10-21 01:07] MED LIST changes: -CATHETER FLUSH 10 ML SYR IV PRN; -HOLD METFORMIN - RECEIVED CONTRAST 20 ML VIAL IV SCH; -IOHEXOL 350 MG/ML 100 ML (OMNIPAQUE 350) VIAL IV ONE; -NS 100 ML (IVPB) BAG IV ONE
[2020-10-21 01:32] LABS: BASOPHILS # (AUTO) 0.1 10^3/uL (0.0-0.1); BASOPHILS % (AUTO) 1 % (0-10); EOSINOPHILS # (AUTO) 0.2 10^3/uL (0.0-0.3); EOSINOPHILS % (AUTO) 2 % (0-10); HEMATOCRIT 32 % (40-54); HEMOGLOBIN 10.4 g/dL (13.3-17.7); LYMPHOCYTES # (AUTO) 0.9 10^3/uL (1.0-4.0); LYMPHOCYTES % (AUTO) 9 % (12-44); MEAN CORPUSCULAR HEMOGLOBIN 29 pg (25-34); MEAN CORPUSCULAR HGB CONC 32 g/dL (32-36); MEAN CORPUSCULAR VOLUME 90 fL (80-99); MEAN PLATELET VOLUME 9.8 fL (9.0-12.2); MONOCYTES # (AUTO) 1.3 10^3/uL (0.0-1.0); MONOCYTES % (AUTO) 12 % (0-12); NEUTROPHILS % (AUTO) 77 % (42-75); PLATELET COUNT 305 10^3/uL (130-400); WHITE BLOOD COUNT 10.5 10^3/uL (4.3-11.0)
[2020-10-21 01:45] LABS: ALBUMIN 3.3 GM/DL (3.2-4.5); CHLORIDE 99 MMOL/L (98-107); POTASSIUM 4.2 MMOL/L (3.6-5.0)
[2020-10-21 01:46] LABS: SODIUM 131 MMOL/L (135-145)
[2020-10-21 01:47] LABS: CALCIUM 8.5 MG/DL (8.5-10.1)
[2020-10-21 01:48] LABS: GLUCOSE 107 MG/DL (70-105)
[2020-10-21 01:49] LABS: CARBON DIOXIDE 21 MMOL/L (21-32)
[2020-10-21 01:50] LABS: BILIRUBIN,TOTAL 1.1 MG/DL (0.1-1.0)
[2020-10-21 01:51] LABS: ALKALINE PHOSPHATASE 201 U/L (40-136); CREATININE SERUM 0.76 MG/DL (0.60-1.30); GFR ESTIMATED > 60
[2020-10-21 01:52] LABS: BUN/CREATININE RATIO 21
[2020-10-21 01:54] LABS: ALANINE AMINOTRANSFERASE 65 U/L (0-55); MAGNESIUM 1.8 MG/DL (1.6-2.4)
[2020-10-21 01:59] LABS: INR 1.5 (0.8-1.4); PROTHROMBIN TIME PATIENT 18.2 SEC (12.2-14.7)
[2020-10-21] MEDS ORDERED: RT-ALBUTEROL INHALER HFA (VENTOLIN HFA) 18 GM IH SCH (02:00)
[2020-10-21 02:03] LABS: TOTAL PROTEIN 6.5 GM/DL (6.4-8.2)
--- NOTE | 2020-10-21 02:24 | ED GI ---
General Chief Complaint: Abdominal/GI Problems Stated Complaint: CONSTIPATION Nursing Triage Note: patient states constipated, took miralax, then having diarrhea, noticed some blood. Sepsis Screen: No Definite Risk Source of Information: Patient Exam Limitations: No Limitations History of Present Illness Date Seen by Provider: Oct 21, 2020 Time Seen by Provider: 01:08 Initial Comments This 85-year-old gentleman presents to the emergency room via EMS with complaints of constipation followed by a painful bloody bowel movement after taking MiraLAX. He is anticoagulated on Eliquis due to A. fib. He is noted to have a little bit of wheezing. He arrives on nasal cannula oxygen which he is accustomed to using at night at 2 L/min. He denies any new cough, shortness of breath, or fever. He reports being tested several times for Covid in the recent past with negative results each time. Allergies and Home Medications Allergies Coded Allergies: No Known Drug Allergies (Unverified , 06/15/20) Home Medications Acetaminophen 500 Mg Tablet, 500-1,000 MG PO Q8H PRN for PAIN-MILD (1-4), (Reported) Albuterol Sulfate 2.5 Mg/3 Ml Vial.neb, 2.5 MG NEB Q6H PRN for SHORTNESS OF BREATH, (Reported) Alfuzosin HCl 10 Mg Tab.er.24h, 10 MG PO 1900, (Reported) Amiodarone HCl 200 Mg Tablet, 200 MG PO BID Prescribed by: CRISS HOBSON on 09/11/20 1026 Amoxicillin/Potassium Clav 1 Each Tablet, 1 EACH PO BID Prescribed by: HELENE MORAN on 09/11/20 1039 Apixaban 2.5 Mg Tablet, 2.5 MG PO BID, (Reported) Atorvastatin Calcium 40 Mg Tablet, 40 MG PO HS, (Reported) Cefdinir 300 Mg Capsule, 300 MG PO BID Prescribed by: PRASHANTH JACKSON on 10/21/20 0313 Diltiazem HCl 360 Mg Capsule.er, 360 MG PO DAILY, (Reported) Docusate Sodium 100 Mg Capsule, 100 MG PO DAILY PRN for CONSTIPATION-1ST LINE, (Reported) Losartan Potassium 25 Mg Tablet, 25 MG PO HS, (Reported) Metformin HCl 500 Mg Tab.er.24h, 500 MG PO 1700, (Reported) Metoprolol Succinate 50 Mg Tab.er.24h, 50 MG PO HS, (Reported) Pantoprazole Sodium 40 Mg Tablet.dr, 40 MG PO DAILY, (Reported) Prednisone 10 Mg Tab, MG PO DAILY, (Reported) TAKING A TAPER DOSE STILL HAS 1 DAY OF 20MG AND 2 DAYS OF 10MG DUE TO COMPLET E THERAPY [Bethanechol] 25 TAB, 25 MG PO TID, (Reported) Patient Home Medication List Home Medication List Reviewed: Yes Review of Systems Review of Systems Constitutional: no symptoms reported EENTM: No Symptoms Reported Respiratory: See HPI Cardiovascular: See HPI Gastrointestinal: See HPI Genitourinary: No Symptoms Reported Musculoskeletal: no symptoms reported Skin: no symptoms reported Psychiatric/Neurological: No Symptoms Reported Endocrine: No Symptoms Reported Hematologic/Lymphatic: See HPI Past Bhidvae-Cmlhbv-Gsofai Hx Past Med/Social Hx: Reviewed Nursing Past Med/Soc Hx Patient Social History Alcohol Beverage of Choice: Wine Former Smoker, Quit: Jul 26, 1984 2nd Hand Smoke Exposure: Yes Recent Foreign Travel: No Contact w/Someone Who Travel: No Recent Infectious Disease Expo: No Recent Hopitalizations: No Immunizations Up To Date Tetanus Booster (TDap): Unknown Date of Pneumonia Vaccine: Aug 03, 2018 Date of Influenza Vaccine: Aug 02, 2020 Seasonal Allergies Seasonal Allergies: Yes (RUNNY NOSE) Past Medical History Surgeries: Yes (ESPHAGAS SURG, HERNIA,R SHOULDER, BACK, CATARACTS, CTR) Orthopedic Respiratory: Yes Pneumonia Currently Using CPAP: No Currently Using BIPAP: No Cardiac: Yes (PAROXYSMAL A FIB) Atrial Fibrillation, Coronary Artery Disease, High Cholesterol, Hypertension, Valvular Heart Disease Neurological: Yes Stroke Reproductive Disorders: No Sexually Transmitted Disease: No HIV/AIDS: No Genitourinary: No Benign Prostatic Hyperpl Gastrointestinal: Yes (HX BLEEDING ULCER) Gastroesophageal Reflux, Diverticulosis, Polyps Musculoskeletal: Yes (ORTHO SURGERY) Arthritis, Chronic Back Pain Endocrine: Yes (DM TYPE II) Diabetes, Non-Insulin dep HEENT: Yes (GLASSES, DENTURES) Cataract Loss of Vision: Denies Hearing Impairment: Hard of Hearing, Bilateral Hearing Aide Cancer: No Psychosocial: No Integumentary: Yes (MILD) Eczema, Psoriasis Blood Disorders: Yes (HX ANEMIA -BLEEDING ULCER) Adverse Reaction/Blood Tranf: No (HAS HAD BLOOD WITH NO REACTION) Family Medical History FH: liver disease 19 MOTHER FH: lung cancer 19 FATHER Physical Exam Vital Signs Vital Signs - First Documented 10/21/20 10/21/20 01:13 03:41 Temp 36.0 Pulse 67 Resp 18 B/P (MAP) 140/45 (76) Pulse Ox 89 O2 Delivery Room Air O2 Flow Rate 3.00 Capillary Refill : Less Than 3 Seconds Height/Weight/BMI Height: 5'7.00" Weight: 140lbs. 0.0oz. 63.702997pc; 20.00 BMI Method:Stated General Appearance: WD/WN, no apparent distress HEENT: PERRL/EOMI, normal ENT inspection Neck: normal inspection Respiratory: no respiratory distress, no accessory muscle use, wheezing, other (Prolonged expiratory phase) Cardiovascular: regular rate, rhythm, no edema, no murmur Gastrointestinal: normal bowel sounds, non tender, soft Rectal: other (No palpable mass. Normal rectal tone. Blottable stool. No active bleeding. Dry blood noted on the skin with positive Hemoccult. 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 nml as tested, no motor/sensory deficits, alert, normal mood/affect, oriented x 3 Skin: normal color, warm/dry Progress/Results/Core Measures Results/Orders Lab Results Laboratory Tests Test 10/21/20 01:13 Range/Units White Blood Count 10.5 4.3-11.0 10^3/uL Red Blood Count 3.55 L 4.30-5.52 10^6/uL Hemoglobin 10.4 L 13.3-17.7 g/dL Hematocrit 32 L 40-54 % Mean Corpuscular Volume 90 80-99 fL Mean Corpuscular Hemoglobin 29 25-34 pg Mean Corpuscular Hemoglobin Concent 32 32-36 g/dL Red Cell Distribution Width 18.3 H 10.0-14.5 % Platelet Count 305 130-400 10^3/uL Mean Platelet Volume 9.8 9.0-12.2 fL Immature Granulocyte % (Auto) 1 % Neutrophils (%) (Auto) 77 H 42-75 % Lymphocytes (%) (Auto) 9 L 12-44 % Monocytes (%) (Auto) 12 0-12 % Eosinophils (%) (Auto) 2 0-10 % Basophils (%) (Auto) 1 0-10 % Neutrophils # (Auto) 8.0 H 1.8-7.8 10^3/uL Lymphocytes # (Auto) 0.9 L 1.0-4.0 10^3/uL Monocytes # (Auto) 1.3 H 0.0-1.0 10^3/uL Eosinophils # (Auto) 0.2 0.0-0.3 10^3/uL Basophils # (Auto) 0.1 0.0-0.1 10^3/uL Immature Granulocyte # (Auto) 0.1 0.0-0.1 10^3/uL Prothrombin Time 18.2 H 12.2-14.7 SEC INR Comment 1.5 H 0.8-1.4 Sodium Level 131 L 135-145 MMOL/L Potassium Level 4.2 3.6-5.0 MMOL/L Chloride Level 99 98-107 MMOL/L Carbon Dioxide Level 21 21-32 MMOL/L Anion Gap 11 5-14 MMOL/L Blood Urea Nitrogen 16 7-18 MG/DL Creatinine 0.76 0.60-1.30 MG/DL Estimat Glomerular Filtration Rate > 60 BUN/Creatinine Ratio 21 Glucose Level 107 H 70-105 MG/DL Calcium Level 8.5 8.5-10.1 MG/DL Corrected Calcium 9.1 8.5-10.1 MG/DL Magnesium Level 1.8 1.6-2.4 MG/DL Total Bilirubin 1.1 H 0.1-1.0 MG/DL Aspartate Amino Transf (AST/SGOT) 37 H 5-34 U/L Alanine Aminotransferase (ALT/SGPT) 65 H 0-55 U/L Alkaline Phosphatase 201 H 40-136 U/L C-Reactive Protein High Sensitivity 3.80 H 0.00-0.50 MG/DL B-Type Natriuretic Peptide 766.8 H <100.0 PG/ML Total Protein 6.5 6.4-8.2 GM/DL Albumin 3.3 3.2-4.5 GM/DL My Orders Orders - PRASHANTH AMOS MD Acute Abd Series (10/21/20 01:19) Cbc With Automated Diff (10/21/20 01:19) Comprehensive Metabolic Panel (10/21/20:19) Magnesium (10/21/20:19) Protime With Inr (10/21/20:19) Ed Iv/Invasive Line Start (10/21/20:19) Albuterol Inhaler (Ventolin Hfa) (10/21/20 02:00) BNP (10/21/20 01:22) Hs C Reactive Protein (10/21/20 02:34) Ceftriaxone For Iv Use (Rocephin For I (10/21/20 03:15) Fecal Occult Bedside (10/21/20 03:27) Medications Given in ED Vital Signs/I&O 10/21/20 10/21/20 01:13 03:41 Temp 36.0 36.0 Pulse 67 67 Resp 18 18 B/P (MAP) 140/45 (76) 134/64 (76) Pulse Ox 89 94 O2 Delivery Room Air Nasal Cannula O2 Flow Rate 3.00 Blood Pressure Mean: 76 Progress Progress Note : Progress Note There is no active rectal bleeding on exam. Wheezing was noted and treated with albuterol. Acute abdominal series revealed a possible increase in infiltrate in the right lower lung when compared with prior. For this reason patient was treated with antibiotics prior to discharge home. Diagnostic Imaging Diagonstic Imaging: Xray Plain Films/CT/US/NM/MRI: chest, abdomen, pelvis Comments Acute abdominal series films viewed by me. Report not yet available. Compared with prior. There are chronic infiltrates noted, improved on the left but worse in the right base. Small stool bolus in the rectum. No overt constipation. No evidence of bowel obstruction. Departure Impression Primary Impression: Rectal bleeding Additional Impressions: Right lower lobe pulmonary infiltrate Wheezing Disposition: HOME, SELF-CARE Condition: Improved Departure-Patient Inst. Decision time for Depature: 03:10 Referrals: ALBARO BRADFORD DO (PCP/Family) Primary Care Physician Patient Instructions: Bloody Stools Add. Discharge Instructions: Blood was noted in your stool when tested. If you have recurrent or persistent rectal bleeding, you will need to stop Eliquis and seek further instructions from your primary care provider and/or Dr. Hobson. Complete your antibiotics as prescribed. Follow-up with Dr. Rocha regarding your chest x-ray. For wheezing or shortness of breath use your inhaler 2 puffs every 4 hours as needed. Please schedule follow-up appointments with your primary care provider and Dr. Rocha as soon as possible. You may increase your oxygen to 3 or 4 L if needed for shortness of breath. There was not a significant amount of stool noted on your x-ray. If you have trouble passing stools, you may continue with MiraLAX or use a glycerin suppository. Call or return to care if you have any further questions, concerns, or worsening of condition. All discharge instructions reviewed with patient and/or family. Voiced understanding. Scripts Cefdinir (Cefdinir) 300 Mg Capsule 300 MG PO BID, #14 CAP Prov: PRASHANTH AMOS MD 10/21/20 Copy Copies To 1: ALBARO BRADFORD DO; CRISS HOBSON MD Copies To 2: BRITTANY ROCHA JOSHUA T MD Oct 21, 2020 02:24
[2020-10-21] MEDS ORDERED: CEFD300C3 PO (03:13)
[2020-10-21] MEDS ORDERED: cefTRIAXone FOR IV USE 1,000 MG in WATER (STERILE) FOR INJECTION 10 ML IV ONE (03:15)
[2020-10-21 03:41] VITALS: BP 134/64
--- NOTE | 2020-10-21 07:38 | Diagnostic Imaging Report ---
EXAMINATION: Abdominal radiographs, acute series. DATE: October 21, 2020. CLINICAL INDICATION: 85-year-old male, abdominal pain. History of pulmonary fibrosis. COMPARISON: CT chest October 02, 2020. CT abdomen pelvis April 30, 2015. Chest radiograph September 11, 2020. COMMENTS: There are areas of opacification projecting over the left midlung, right midlung, and bilateral medial lung bases which are fairly similar to September 11, 2020. There are additional predominantly interstitial opacities in the lungs bilaterally. There is interval increase in consolidation in the right lower lobe. There are vascular calcifications. There are gas-filled segments of bowel which are not abnormally dilated. There are bilateral total hip prostheses. There are degenerative changes of the spine. IMPRESSION: 1. No identified acute abdominal radiographic abnormality. 2. Multifocal lung consolidation with interval increase in consolidation in the right lower lobe which could relate to infiltrate, atelectasis, and/or small right effusion. Additional multifocal lung consolidation is largely similar to comparison imaging and could relate to chronic lung changes although causes of chronic alveolar consolidation are considered in the region of the right and left midlung. Dictated by: Dictated on workstation # [id number]
== END 2020-10-21 03:42 | disposition home or self-care (01) ==
LOC: EDUNIT# 01:07 → ER 01:08
DX: K62.5 Hemorrhage of anus and rectum (principal); R91.8 Other nonspecific abnormal finding of lung field; R06.2 Wheezing; K21.9 Gastro-esophageal reflux disease without esophagitis; I48.0 Paroxysmal atrial fibrillation; I10 Essential (primary) hypertension; E11.9 Type 2 diabetes mellitus without complications; E78.00 Pure hypercholesterolemia, unspecified; Z80.1 Family history of malignant neoplasm of trachea, bronchus and lung; Z87.891 Personal history of nicotine dependence; Z20.828 Contact with and (suspected) exposure to other viral communicable diseases; Z79.52 Long term (current) use of systemic steroids; Z79.01 Long term (current) use of anticoagulants; Z79.84 Long term (current) use of oral hypoglycemic drugs
CPT/HCPCS: 36415; 74022; 80053; 82274; 83735; 83880; 85025; 85610; 86141

== ENCOUNTER → 2020-10-25 | Outpatient (CLI) | payer MEDICARE, OTHER ==
[~2020-10-25] MED LIST changes: +CEFD300C3 PO
[2020-10-25 08:20] LABS: HEMOGLOBIN 10.9 g/dL (13.3-17.7); MEAN PLATELET VOLUME 9.4 fL (9.0-12.2); WHITE BLOOD COUNT 11.2 10^3/uL (4.3-11.0)
== END ==
LOC: LAB 08:04
PROVIDERS: ATTEND Family Medicine
DX: K92.1 Melena (principal); K59.00 Constipation, unspecified
CPT/HCPCS: 36415; 85027

== ENCOUNTER 2020-12-19 15:50 | Inpatient (IN) | payer MEDICARE, OTHER ==
[~2020-12-19] VITALS: Ht 167 cm; Wt 56.2 kg
[2020-12-19 16:04] LABS: ABG BASE EXCESS -0.4 MMOL/L (-2.5-2.5); ABG OXYGEN SATURATION 88 % (94-100); ABG PCO2 32 MMHG (35-45); ABG PH 7.47 (7.37-7.43); ABG PO2 51 MMHG (79-93); ABG TCO2 23.9 MMOL/L (21.0-31.0)
[2020-12-19 16:05] LABS: ALLENS TEST YES-POS; INSPIRED O2 5L; PATIENT TEMP 97.4; VENTILATOR NO
[2020-12-19] MEDS ORDERED: VANCOMYCIN INJECTION 1,250 MG in NS (IVPB) 250 ML IV ONE (16:15)
[2020-12-19] MEDS ORDERED: LACTATED RINGERS 1,000 ML IV ONE ×2 (16:15)
[2020-12-19] MEDS ORDERED: CEFEPIME INJECTION 1,000 MG in WATER (STERILE) FOR INJECTION 10 ML IV ONE (16:15)
[2020-12-19 16:16] LABS: BASOPHILS % (AUTO) 0 % (0-10); EOSINOPHILS % (AUTO) 0 % (0-10); HEMATOCRIT 26 % (40-54); HEMOGLOBIN 8.1 g/dL (13.3-17.7); LYMPHOCYTES # (AUTO) 0.7 10^3/uL (1.0-4.0); LYMPHOCYTES % (AUTO) 6 % (12-44); MEAN CORPUSCULAR HEMOGLOBIN 28 pg (25-34); MEAN CORPUSCULAR HGB CONC 32 g/dL (32-36); MEAN CORPUSCULAR VOLUME 89 fL (80-99); MEAN PLATELET VOLUME 9.6 fL (9.0-12.2); MONOCYTES # (AUTO) 1.3 10^3/uL (0.0-1.0); MONOCYTES % (AUTO) 10 % (0-12); NEUTROPHILS # (AUTO) 10.3 10^3/uL (1.8-7.8); NEUTROPHILS % (AUTO) 83 % (42-75); PLATELET COUNT 396 10^3/uL (130-400); WHITE BLOOD COUNT 12.4 10^3/uL (4.3-11.0)
--- NOTE | 2020-12-19 16:17 | ED General ---
General Stated Complaint: FLU LIKE SYMPTOMS Source of Information: Patient Exam Limitations: No Limitations History of Present Illness Date Seen by Provider: Dec 19, 2020 Time Seen by Provider: 15:52 Initial Comments Patient presents ER by EMS from home with chief complaint last couple hours she started having chills and flulike symptoms with a cough shortness of air. Patient is at baseline on 6 L by nasal cannula. He has not smoked in many years. Followed by Dr. Bradford. His had Dr. Bradford run some [place] [facility] [place] but he does not know the results. He has had one of his COVID-19 vaccines 2 weeks ago. No known sick contacts. No fevers vomiting chest pain diarrhea or nausea. No dysuria. Loose nonproductive cough. Full code Allergies and Home Medications Allergies Coded Allergies: No Known Drug Allergies (Unverified , 06/15/20) Home Medications Acetaminophen 500 Mg Tablet, 500-1,000 MG PO Q8H PRN for PAIN-MILD (1-4), (Reported) Albuterol Sulfate 2.5 Mg/3 Ml Vial.neb, 2.5 MG NEB Q6H PRN for SHORTNESS OF BREATH, (Reported) Alfuzosin HCl 10 Mg Tab.er.24h, 10 MG PO 1900, (Reported) Amiodarone HCl 200 Mg Tablet, 200 MG PO BID Prescribed by: CRISS FOSTER on 09/11/20 1026 Amoxicillin/Potassium Clav 1 Each Tablet, 1 EACH PO BID Prescribed by: HELENE MENDOSA on 09/11/20 1039 Apixaban 2.5 Mg Tablet, 2.5 MG PO BID, (Reported) Atorvastatin Calcium 40 Mg Tablet, 40 MG PO HS, (Reported) Cefdinir 300 Mg Capsule, 300 MG PO BID Prescribed by: PRASHANTH JACKSON on 10/21/20 0313 Diltiazem HCl 360 Mg Capsule.er, 360 MG PO DAILY, (Reported) Docusate Sodium 100 Mg Capsule, 100 MG PO DAILY PRN for CONSTIPATION-1ST LINE, (Reported) Losartan Potassium 25 Mg Tablet, 25 MG PO HS, (Reported) Metformin HCl 500 Mg Tab.er.24h, 500 MG PO 1700, (Reported) Metoprolol Succinate 50 Mg Tab.er.24h, 50 MG PO HS, (Reported) Pantoprazole Sodium 40 Mg Tablet.dr, 40 MG PO DAILY, (Reported) Prednisone 10 Mg Tab, MG PO DAILY, (Reported) TAKING A TAPER DOSE STILL HAS 1 DAY OF 20MG AND 2 DAYS OF 10MG DUE TO COMPLETE THERAPY [Bethanechol] 25 TAB, 25 MG PO TID, (Reported) Patient Home Medication List Home Medication List Reviewed: Yes Review of Systems Review of Systems Constitutional: chills; No fever; malaise EENTM: No ear discharge, No ear pain Respiratory: cough; No phlegm; short of breath Cardiovascular: No chest pain, No edema, No Hx of Intervention, No palpitations, No vascular heart diseas Gastrointestinal: No abdominal pain, No constipation, No diarrhea, No nausea Genitourinary: No discharge, No dysuria Musculoskeletal: No back pain, No joint pain Skin: No pruritus, No rash All Other Systems Reviewed Negative Unless Noted: Yes Past Cbwxjrm-Hovdeo-Ommgmy Hx Patient Social History Alcohol Use: Regular Use Alcohol Beverage of Choice: Beer, Wine Smoking Status: Former Smoker Former Smoker, Quit: Jul 26, 1984 2nd Hand Smoke Exposure: Yes Recent Hopitalizations: No Immunizations Up To Date Tetanus Booster (TDap): Unknown Date of Pneumonia Vaccine: Aug 03, 2018 Date of Influenza Vaccine: Aug 02, 2020 Seasonal Allergies Seasonal Allergies: Yes (RUNNY NOSE) Past Medical History Surgeries: Yes (ESPHAGAS SURG, HERNIA,R SHOULDER, BACK, CATARACTS, CTR) Orthopedic Respiratory: Yes Pneumonia Currently Using CPAP: No Currently Using BIPAP: No Cardiac: Yes (PAROXYSMAL A FIB) Atrial Fibrillation, Coronary Artery Disease, High Cholesterol, Hypertension, Valvular Heart Disease Neurological: Yes Stroke Reproductive Disorders: No Sexually Transmitted Disease: No HIV/AIDS: No Genitourinary: No Benign Prostatic Hyperpl Gastrointestinal: Yes (HX BLEEDING ULCER) Gastroesophageal Reflux, Diverticulosis, Polyps Musculoskeletal: Yes (ORTHO SURGERY) Arthritis, Chronic Back Pain Endocrine: Yes (DM TYPE II) Diabetes, Non-Insulin dep HEENT: Yes (GLASSES, DENTURES) Cataract Loss of Vision: Denies Hearing Impairment: Hard of Hearing, Bilateral Hearing Aide Cancer: No Psychosocial: No Integumentary: Yes (MILD) Eczema, Psoriasis Blood Disorders: Yes (HX ANEMIA -BLEEDING ULCER) Adverse Reaction/Blood Tranf: No (HAS HAD BLOOD WITH NO REACTION) Family Medical History FH: liver disease 19 MOTHER FH: lung cancer 19 FATHER Physical Exam-Suspected Sepsis Physical Exam Vital Signs Vital Signs - First Documented Capillary Refill : Height, Weight, BMI Height: 5'7.00" Weight: 140lbs. 0.0oz. 63.757469iu; 20.00 BMI Method:Stated General Appearance: Moderate Distress, Thin Eyes: Bilateral Eye Normal Inspection, Bilateral Eye PERRL, Bilateral Eye EOMI HEENT: PERRL/EOMI; No Moist Mucous Membranes Neck: Full Range of Motion, Normal Inspection, Non Tender, Supple Respiratory: Accessory Muscle Use (Mild, rate in the mid 20s.), Decreased Breath Sounds, Respiratory Distress (Moderate with oxygen sats 86% on 6 L by nasal cannula. Mouth breathing.) Cardiovascular: Regular Rate, Rhythm, No Edema, Normal Peripheral Pulses Gastrointestinal: Normal Bowel Sounds, Non Tender, Soft Extremity: Normal Inspection, Slow Capillary Refill Neurologic/Psychiatric: Alert, Oriented x3 Skin: cool, diaphoresis Focused Exam Sepsis Stage: Severe Sepsis Possible Source: Pulmonary Lactate Level 12/19/20 16:10: Lactic Acid Level 3.68*H Time of Focused Exam: 16:51 Respiratory: No Accessory Muscle Use, Crackles (Bilateral bases), Respiratory Distress (Moderate with minimal oxygen saturation 96% on 8 L by oxygen mask and rate of 18) Cardiovascular: Regular Rate, Rhythm, Normal Peripheral Pulses Capillary Refill: Less Than 3 Seconds Peripheral Pulses: 2+ Radial Pulses (R), 2+ Radial Pulses (L) Skin: normal color, warm/dry Lactic Acid Level Laboratory Tests Test 12/19/20 16:10 Lactic Acid Level 3.68 MMOL/L (0.50-2.00) *H Within 3hrs of presentation: Admin fluids, Admin ABX, Blood cultures prior to ABX's, Focus exam, Lactate level Progress/Results/Core Measures Suspected Sepsis SIRS Temperature: Pulse: Respiratory Rate: Laboratory Tests 12/19/20 16:10: White Blood Count 12.4H Blood Pressure / Mean: 12/19/20 16:10: Lactic Acid Level 3.68*H Laboratory Tests 12/19/20 16:10: Creatinine 0.76, INR Comment 1.5H, Platelet Count 396, Total Bilirubin 0.8 Results/Orders Lab Results Laboratory Tests Test 12/19/20 15:58 12/19/20 15:59 12/19/20 16:10 Range/Units Coronavirus 2019 (BREANNA) Negative Negative Blood Gas Puncture Site L WRIST Blood Gas Patient Temperature 97.4 Arterial Blood pH 7.47 H 7.37-7.43 Arterial Blood Partial Pressure CO2 32 L 35-45 MMHG Arterial Blood Partial Pressure O2 51 L 79-93 MMHG Arterial Blood HCO3 23 23-27 MMOL/L Arterial Blood Total CO2 23.9 21.0-31.0 MMOL/L Arterial Blood Oxygen Saturation 88 L 94-100 % Arterial Blood Base Excess -0.4 -2.5-2.5 MMOL/L Richard Test YES-POS Blood Gas Ventilator Setting NO Blood Gas Inspired Oxygen 5L White Blood Count 12.4 H 4.3-11.0 10^3/uL Red Blood Count 2.90 L 4.30-5.52 10^6/uL Hemoglobin 8.1 L 13.3-17.7 g/dL Hematocrit 26 L 40-54 % Mean Corpuscular Volume 89 80-99 fL Mean Corpuscular Hemoglobin 28 25-34 pg Mean Corpuscular Hemoglobin Concent 32 32-36 g/dL Red Cell Distribution Width 15.4 H 10.0-14.5 % Platelet Count 396 130-400 10^3/uL Mean Platelet Volume 9.6 9.0-12.2 fL Immature Granulocyte % (Auto) 0 % Neutrophils (%) (Auto) 83 H 42-75 % Lymphocytes (%) (Auto) 6 L 12-44 % Monocytes (%) (Auto) 10 0-12 % Eosinophils (%) (Auto) 0 0-10 % Basophils (%) (Auto) 0 0-10 % Neutrophils # (Auto) 10.3 H 1.8-7.8 10^3/uL Lymphocytes # (Auto) 0.7 L 1.0-4.0 10^3/uL Monocytes # (Auto) 1.3 H 0.0-1.0 10^3/uL Eosinophils # (Auto) 0.0 0.0-0.3 10^3/uL Basophils # (Auto) 0.0 0.0-0.1 10^3/uL Immature Granulocyte # (Auto) 0.1 0.0-0.1 10^3/uL Neutrophils % (Manual) 80 % Lymphocytes % (Manual) 7 % Monocytes % (Manual) 10 % Eosinophils % (Manual) 3 % Anisocytosis MARKED [place] Cells SLIGHT Acanthocytes MODERATE Blood Morphology Comment NA Prothrombin Time 18.9 H 12.2-14.7 SEC INR Comment 1.5 H 0.8-1.4 Activated Partial Thromboplast Time 37 H 24-35 SEC D-Dimer 1.17 H 0.00-0.49 UG/ML Sodium Level 133 L 135-145 MMOL/L Potassium Level 4.7 3.6-5.0 MMOL/L Chloride Level 98 98-107 MMOL/L Carbon Dioxide Level 20 L 21-32 MMOL/L Anion Gap 15 H 5-14 MMOL/L Blood Urea Nitrogen 26 H 7-18 MG/DL Creatinine 0.76 0.60-1.30 MG/DL Estimat Glomerular Filtration Rate > 60 BUN/Creatinine Ratio 34 Glucose Level 117 H 70-105 MG/DL Lactic Acid Level 3.68 *H 0.50-2.00 MMOL/L Calcium Level 8.5 8.5-10.1 MG/DL Corrected Calcium 9.0 8.5-10.1 MG/DL Total Bilirubin 0.8 0.1-1.0 MG/DL Aspartate Amino Transf (AST/SGOT) 60 H 5-34 U/L Alanine Aminotransferase (ALT/SGPT) 68 H 0-55 U/L Alkaline Phosphatase 108 40-136 U/L Total Protein 6.4 6.4-8.2 GM/DL Albumin 3.4 3.2-4.5 GM/DL Micro Results Microbiology 12/19/20 Influenza Types A,B Antigen (CONOR) - Final, Complete My Orders Orders - MELISSA VOGEL Arterial Blood Gas (12/19/20 15:59) Cbc With Automated Diff (12/19/20 16:06) Comprehensive Metabolic Panel (12/19/20 16:06) Blood Culture (12/19/20 16:06) Sputum Culture (12/19/20 16:06) Urinalysis (12/19/20 16:06) Urine Culture (12/19/20 16:06) Protime With Inr (12/19/20 16:06) Partial Thromboplastin Time (12/19/20 16:06) Chest 1 View, Ap/Pa Only (12/19/20 16:06) Ed Iv/Invasive Line Start (12/19/20 16:06) Ed Iv/Invasive Line Start (12/19/20 16:06) Vital Signs Adult Sepsis Patie Q15M (12/19/20 16:06) O2 (12/19/20 16:06) Remove Rings In Anticipation O (12/19/20 16:06) Lactic Acid Analyzer (12/19/20 16:06) Influenza A And B Antigens (12/19/20 16:06) Lactated Ringers (Lr 1000 Ml Iv Solution (12/19/20 16:15) Cefepime Injection (Maxipime Injection) (12/19/20 16:15) Vancomycin Injection (Vancomycin Injecti (12/19/20 16:15) Fibrin Degradation Products (12/19/20 16:08) Covid 19 Inhouse Test (12/19/20 16:08) Ed Iv/Invasive Line Start (12/19/20 16:12) Lactated Ringers (Lr 1000 Ml Iv Solution (12/19/20 16:15) Manual Differential (12/19/20 16:10) Acetaminophen Tablet (Tylenol Tablet) (12/19/20 18:00) Acetaminophen Tablet (Tylenol Tablet) (12/19/20 17:42) Medications Given in ED Current Medications Medications Dose Ordered Sig/Jamal Route Start Time Stop Time Status Last Admin Dose Admin Cefepime HCl 1000 mg/Sterile Water 10 ml @ 200 mls/hr ONCE ONCE IV 12/19/20 16:15 12/19/20 16:17 DC 12/19/20 16:21 200 MLS/HR Lactated Ringer's 1,000 ml @ 0 mls/hr Q0M ONCE IV 12/19/20 16:15 12/19/20 16:16 DC 12/19/20 16:15 1,000 MLS/HR Lactated Ringer's 1,000 ml @ 0 mls/hr Q0M ONCE IV 12/19/20 16:15 12/19/20 16:16 DC 12/19/20 17:00 1,000 MLS/HR Vancomycin HCl 1250 mg/Sodium Chloride 250 ml @ 210 mls/hr ONCE ONCE IV 12/19/20 16:15 12/19/20 17:26 DC 12/19/20 16:35 210 MLS/HR Vital Signs/I&O 12/19/20 12/19/20 15:50 15:50 Temp 36.3 Pulse 89 Resp 24 B/P (MAP) 123/71 (88) Pulse Ox 91 91 O2 Delivery Nasal Cannula Nasal Cannula O2 Flow Rate 5.00 5.00 Capillary Refill : Progress Note #1: Time: 16:15 Progress Note Oxime mask at 6 L brought him up to 91%. Turning up to 8 L and his oxygen saturations are around 92 to 94%. Initial ABG demonstrates moderate hypoxia with respiratory alkalosis. No evidence of CO2 retention. Will give a ntibiotics and anticipation of pneumonia versus viral pneumonia. We will get a septic work-up done. 2 L is greater than 30 mL/kg. Cefepime and vancomycin given his history of COPD. He is a little bit cool on arrival 95 degrees. Progress Note #2: Time: 18:05 Progress Note Patient was doing good on 8 L by oxygen mask however he started to desat after the second liter of fluids was started and his lung sounds became more coarse. We stopped the IV fluids and and increase his oxygen. Because he is needing more oxygen we are going to [place] put him on Vapotherm and relay this informati on to Dr. Mendosa. We also gave him a gram of Tylenol because he is still having some chills but he is afebrile at this time. Diagnostic Imaging Diagonstic Imaging: Xray Plain Films/CT/US/NM/MRI: chest Comments NAME: HARSHIL RHODES [facility] REC#: [id number] PT STATUS: REG ER : 1935 PHYSICIAN: MELISSA VOGEL MD ADMIT DATE: 12/19/20/ER Draft Date of Exam:12/19/20 CHEST 1 VIEW, AP/PA ONLY INDICATION: Sepsis. COMPARISON: 09/11/2020. FINDINGS: A single frontal radiographic view of the chest was obtained and again demonstrates diffuse mixed interstitial and alveolar infiltrates, greatest within the bilateral mid lung jesus, left greater than right. Since the previous exam, there has been interval progression of the confluent airspace disease on the left. There is no large effusion or pneumothorax. The cardiac silhouette is heavily obscured. The osseous structures show no gross acute abnormalities. IMPRESSION: Persistent diffuse bilateral mixed interstitial and alveolar infiltrates with interval progression on the left. Dictated on workstation # [id number] Dict: 12/19/20 1639 Trans: 12/19/20 1643 [id number] Interpreted by: NAV STAFFORD MD Electronically signed by: Reviewed: Reviewed by Me Departure Communication (Admissions) Time/Spoke to Admitting Phy: 16:50 Discussed the case with Dr. Mendosa and she agrees putting the patient on stepdown and making him a PUI for COVID-19 for now. Continue antibiotics and fluids. Holding off on steroids. Impression Primary Impression: PNA (pneumonia) Qualified Codes: J18.9 - Pneumonia, unspecified organism Additional Impressions: Acute and chronic respiratory failure with hypoxia Severe sepsis Person under investigation for COVID-19 Disposition: ADMITTED INPATIENT Condition: Stable Admissions Decision to Admit Reason: Admit from ER (General) Decision to Admit/Date: Dec 19, 2020 Time/Decision to Admit Time: 16:00 Departure-Patient Inst. Referrals: ALBARO BRADFORD DO (PCP/Family) Primary Care Physician MELISSA VOGEL Dec 19, 2020 16:17
[2020-12-19 16:35] LABS: ALBUMIN 3.4 GM/DL (3.2-4.5); CHLORIDE 98 MMOL/L (98-107); POTASSIUM 4.7 MMOL/L (3.6-5.0); SODIUM 133 MMOL/L (135-145)
[2020-12-19 16:36] LABS: CALCIUM 8.5 MG/DL (8.5-10.1)
[2020-12-19 16:38] LABS: GLUCOSE 117 MG/DL (70-105); TOTAL PROTEIN 6.4 GM/DL (6.4-8.2)
[2020-12-19 16:39] LABS: BILIRUBIN,TOTAL 0.8 MG/DL (0.1-1.0); CARBON DIOXIDE 20 MMOL/L (21-32)
[2020-12-19 16:40] LABS: FIBRIN DEGRADATION PRODUCTS 1.17 UG/ML (0.00-0.49); INR 1.5 (0.8-1.4); PROTHROMBIN TIME PATIENT 18.9 SEC (12.2-14.7)
[2020-12-19 16:41] LABS: ALKALINE PHOSPHATASE 108 U/L (40-136); CREATININE SERUM 0.76 MG/DL (0.60-1.30); GFR ESTIMATED > 60
[2020-12-19 16:42] LABS: BUN/CREATININE RATIO 34; EOSINOPHILS % (MANUAL) 3 %; LYMPHOCYTES % (MANUAL) 7 %; MONOCYTES % (MANUAL) 10 %; NEUTROPHILS % (MANUAL) 80 %
[2020-12-19 16:43] LABS: ACANTHOCYTES MODERATE; ANISOCYTOSIS MARKED; BURR CELLS SLIGHT
--- NOTE | 2020-12-19 16:43 | Diagnostic Imaging Report ---
INDICATION: Sepsis. COMPARISON: 09/11/2020. FINDINGS: A single frontal radiographic view of the chest was obtained and again demonstrates diffuse mixed interstitial and alveolar infiltrates, greatest within the bilateral mid lung jesus, left greater than right. Since the previous exam, there has been interval progression of the confluent airspace disease on the left. There is no large effusion or pneumothorax. The cardiac silhouette is heavily obscured. The osseous structures show no gross acute abnormalities. IMPRESSION: Persistent diffuse bilateral mixed interstitial and alveolar infiltrates with interval progression on the left. Dictated by: Dictated on workstation # [id number]
[2020-12-19 16:44] LABS: ALANINE AMINOTRANSFERASE 68 U/L (0-55)
[2020-12-19] MEDS ORDERED: ACETAMINOPHEN 500 MG TAB (TYLENOL) ONE (17:42)
[2020-12-19] MEDS ORDERED: ACETAMINOPHEN 500 MG TAB (TYLENOL) PO ONE (18:00)
[2020-12-19] MEDS ORDERED: ONDANSETRON 4 MG/2 ML (SDV) Z0FRAN IV PRN (19:30)
[2020-12-19] MEDS ORDERED: EPINEPHrine 1 MG INJECTION 4 MG in NS (IVPB) 248 ML IV SCH (19:30)
[2020-12-19] MEDS ORDERED: CATHETER FLUSH 10 ML SYR IV PRN (19:45)
[2020-12-19 19:57] VITALS: BP 133/57
[2020-12-19] MEDS ORDERED: RT-ALBUTEROL INHALER HFA (VENTOLIN HFA) 18 GM IH PRN (20:15)
[2020-12-19] MEDS ORDERED: APIXABAN 2.5 MG (ELIQUIS) TABLET PO SCH (21:00)
[2020-12-19] MEDS: CEFEPIME 1,000 MG/SWFI 10 ML IV PUSH IV SCH ×2 (22:51)
[2020-12-19] MEDS: CATHETER FLUSH 10 ML SYR IV SCH (22:51)
[2020-12-19] MEDS: VASOPRESSIN INJECTION 20 UNIT in NS (IVPB) 100 ML IV SCH (23:45)
[2020-12-19] MEDS: NOREPINEPHRINE 4 MG/250 ML 250 ML IV SCH (23:45)
[2020-12-20] MEDS: MELATONIN 3 MG TABLET PO SCH ×2 (00:41→21:01)
[2020-12-20 04:14] LABS: BASOPHILS # (AUTO) 0.1 10^3/uL (0.0-0.1); BASOPHILS % (AUTO) 1 % (0-10); EOSINOPHILS # (AUTO) 0.1 10^3/uL (0.0-0.3); EOSINOPHILS % (AUTO) 1 % (0-10); HEMATOCRIT 22 % (40-54); HEMOGLOBIN 7.1 g/dL (13.3-17.7); LYMPHOCYTES # (AUTO) 0.9 10^3/uL (1.0-4.0); LYMPHOCYTES % (AUTO) 10 % (12-44); MEAN CORPUSCULAR HEMOGLOBIN 28 pg (25-34); MEAN CORPUSCULAR HGB CONC 33 g/dL (32-36); MEAN CORPUSCULAR VOLUME 86 fL (80-99); MEAN PLATELET VOLUME 10.4 fL (9.0-12.2); MONOCYTES % (AUTO) 11 % (0-12); NEUTROPHILS % (AUTO) 78 % (42-75); PLATELET COUNT 413 10^3/uL (130-400); WHITE BLOOD COUNT 9.1 10^3/uL (4.3-11.0)
[2020-12-20] MEDS: VASOPRESSIN INJECTION 20 UNIT in NS (IVPB) 100 ML IV SCH (04:20)
[2020-12-20] MEDS: KCL 20 MEQ TAB (K-DUR) PO SCH (04:21)
[2020-12-20] MEDS: NOREPINEPHRINE 4 MG/250 ML 250 ML IV SCH (04:21)
[2020-12-20] MEDS: MAGNESIUM 1 GM/100 ML IVPB 100 ML IV SCH (04:21)
[2020-12-20] MEDS: POTASSIUM CL 10MEQ/50ML IVPB 50 ML IV SCH (04:21)
[2020-12-20 04:27] LABS: ALBUMIN 2.8 GM/DL (3.2-4.5); CHLORIDE 100 MMOL/L (98-107); POTASSIUM 5.4 MMOL/L (3.6-5.0); SODIUM 131 MMOL/L (135-145)
[2020-12-20 04:29] LABS: CALCIUM 8.1 MG/DL (8.5-10.1)
[2020-12-20 04:30] LABS: GLUCOSE 76 MG/DL (70-105); TOTAL PROTEIN 6.6 GM/DL (6.4-8.2)
[2020-12-20 04:31] LABS: BILIRUBIN,TOTAL 0.8 MG/DL (0.1-1.0); CARBON DIOXIDE 22 MMOL/L (21-32)
[2020-12-20 04:33] LABS: ALKALINE PHOSPHATASE 88 U/L (40-136); PHOSPHORUS 3.2 MG/DL (2.3-4.7)
[2020-12-20 04:34] LABS: CREATININE SERUM 0.67 MG/DL (0.60-1.30); GFR ESTIMATED > 60
[2020-12-20 04:35] LABS: BUN/CREATININE RATIO 27
[2020-12-20 04:36] LABS: ALANINE AMINOTRANSFERASE 64 U/L (0-55); MAGNESIUM 1.8 MG/DL (1.6-2.4)
--- NOTE | 2020-12-20 06:16 | Pulmonary Consultation ---
History of Present Illness History of Present Illness Date Seen by Provider: Dec 20, 2020 Time Seen by Provider: 06:10 Date of Admission Allergies and Home Medications Allergies Coded Allergies: No Known Drug Allergies (Unverified , 06/15/20) Home Medications Acetaminophen 500 Mg Tablet, 500-1,000 MG PO Q8H PRN for PAIN-MILD (1-4), (Reported) Albuterol Sulfate 2.5 Mg/3 Ml Vial.neb, 2.5 MG NEB Q6H PRN for SHORTNESS OF BREATH, (Reported) Alfuzosin HCl 10 Mg Tab.er.24h, 10 MG PO 1900, (Reported) Amiodarone HCl 200 Mg Tablet, 200 MG PO BID Prescribed by: CRISS FOSTER on 09/11/20 1026 Amoxicillin/Potassium Clav 1 Each Tablet, 1 EACH PO BID Prescribed by: HELENE MORAN on 09/11/20 1039 Apixaban 2.5 Mg Tablet, 2.5 MG PO BID, (Reported) Atorvastatin Calcium 40 Mg Tablet, 40 MG PO HS, (Reported) Cefdinir 300 Mg Capsule, 300 MG PO BID Prescribed by: PRASHANTH JACKSON on 10/21/20 0313 Diltiazem HCl 360 Mg Capsule.er, 360 MG PO DAILY, (Reported) Docusate Sodium 100 Mg Capsule, 100 MG PO DAILY PRN for CONSTIPATION-1ST LINE, (Reported) Losartan Potassium 25 Mg Tablet, 25 MG PO HS, (Reported) Metformin HCl 500 Mg Tab.er.24h, 500 MG PO 1700, (Reported) Metoprolol Succinate 50 Mg Tab.er.24h, 50 MG PO HS, (Reported) Pantoprazole Sodium 40 Mg Tablet.dr, 40 MG PO DAILY, (Reported) Prednisone 10 Mg Tab, MG PO DAILY, (Reported) TAKING A TAPER DOSE STILL HAS 1 DAY OF 20MG AND 2 DAYS OF 10MG DUE TO COMPLETE THERAPY [Bethanechol] 25 TAB, 25 MG PO TID, (Reported) Past Swrectj-Krlvyk-Nkcbhb Hx Patient Social History Alcohol Use: Regular Use Number of Drinks Today: HH Alcohol Beverage of Choice: Beer, Wine Smoking Status: Former Smoker Former Smoker, Quit: Jul 26, 1984 2nd Hand Smoke Exposure: Yes Recent Infectious Disease Expo: No Recent Hopitalizations: No Immunizations Up To Date Tetanus Booster (TDap): Unknown Date of Pneumonia Vaccine: Aug 03, 2018 Date of Influenza Vaccine: Aug 02, 2020 Seasonal Allergies Seasonal Allergies: Yes (RUNNY NOSE) Past Medical History Surgeries: Yes (ESPHAGAS SURG, HERNIA,R SHOULDER, BACK, CATARACTS, CTR) Orthopedic Respiratory: Yes Pneumonia Currently Using CPAP: No Currently Using BIPAP: No Cardiac: Yes (PAROXYSMAL A FIB) Atrial Fibrillation, Coronary Artery Disease, High Cholesterol, Hypertension, Valvular Heart Disease Neurological: Yes Stroke Reproductive Disorders: No Sexually Transmitted Disease: No HIV/AIDS: No Genitourinary: No Benign Prostatic Hyperpl Gastrointestinal: Yes (HX BLEEDING ULCER) Gastroesophageal Reflux, Diverticulosis, Polyps Musculoskeletal: Yes (ORTHO SURGERY) Arthritis, Chronic Back Pain Endocrine: Yes (DM TYPE II) Diabetes, Non-Insulin dep HEENT: Yes (GLASSES, DENTURES) Cataract Loss of Vision: Denies Hearing Impairment: Hard of Hearing, Bilateral Hearing Aide Cancer: No Psychosocial: No Integumentary: Yes (MILD) Eczema, Psoriasis Blood Disorders: Yes (HX ANEMIA -BLEEDING ULCER) Adverse Reaction/Blood Tranf: No (HAS HAD BLOOD WITH NO REACTION) Family Medical History FH: liver disease 19 MOTHER FH: lung cancer 19 FATHER Sepsis Event Evaluation Height, Weight, BMI Height: 5'7.00" Weight: 140lbs. 0.0oz. 63.081603rs; 21.15 BMI Method:Stated Exam Exam Vital Signs Date Time Temp Pulse Resp B/P (MAP) Pulse Ox O2 Delivery O2 Flow Rate FiO2 12/20/20 05:00 71 21 138/59 (85) 92 Vapotherm 30.00 70.00 12/20/20 04:00 94 Vapotherm 20.00 70 12/20/20 04:00 86 31 144/62 (89) Vapotherm 30.00 70.00 12/20/20 03:00 76 29 138/57 (84) 89 Vapotherm 30.00 70.00 12/20/20 02:13 94 Vapotherm 30.00 70 12/20/20 02:00 67 20 132/60 (84) 94 Vapotherm 30.00 70.00 12/20/20 01:00 70 12/20/20 01:00 70 29 140/50 (80) 95 Vapotherm 30.00 70.00 12/20/20 00:00 92 Vapotherm 20.00 70 12/20/20 00:00 71 28 135/56 (82) 94 Vapotherm 30.00 70.00 12/19/20 23:00 70 22 139/59 (85) 93 Vapotherm 30.00 70.00 12/19/20 22:00 64 22 122/54 (76) 97 Vapotherm 30.00 70.00 12/19/20 21:30 94 Vapotherm 30.00 70 12/19/20 21:00 69 23 128/55 (79) 93 Vapotherm 30.00 70.00 12/19/20 20:07 98 Vapotherm 30.00 70 12/19/20 20:00 93 Vapotherm 20.00 70 12/19/20 20:00 76 37 132/52 (78) 93 Vapotherm 30.00 70.00 12/19/20 19:57 36.4 77 99 70 12/19/20 19:34 36.4 77 26 133/57 (82) 94 Vapotherm 30.00 70.00 12/19/20 19:13 86 12/19/20 18:34 80 28 141/51 96 12/19/20 18:16 98 Vapotherm 30.00 80 12/19/20 15:50 91 Nasal Cannula 5.00 12/19/20 15:50 36.3 89 24 123/71 (88) 91 Nasal Cannula 5.00 I & O 12/20/20 07:00 Intake Total 150 ml Output Total 200 ml Balance -50 ml Height & Weight Height: 5'7.00" Weight: 140lbs. 0.0oz. 63.676172rv; 21.15 BMI Method:Stated General Appearance: Moderate Distress, Thin HEENT: PERRL/EOMI; No Moist Mucous Membranes Neck: Full Range of Motion, Normal Inspection, Non Tender, Supple Respiratory: No Accessory Muscle Use, Crackles (Bilateral bases), Respiratory Distress (Moderate with minimal oxygen saturation 96% on 8 L by oxygen mask and rate of 18) Cardiovascular: Regular Rate, Rhythm, Normal Peripheral Pulses Capillary Refill: Less Than 3 Seconds Peripheral Pulses: 2+ Radial Pulses (R), 2+ Radial Pulses (L) Extremity: Normal Inspection, Slow Capillary Refill Neurologic/Psychiatric: Alert, Oriented x3 Results Lab Laboratory Tests 12/19/20 16:10 12/20/20 03:49 Assessment/Plan Assessment/Plan Pneumonia with severe sepsis -COVID pending -Cefepime, and vanco -Vapotherm Acute on chronic respiratory failure Severe oxygen dependent COPD - He uses 6 liters of oxygen at home -Start solumedrol 40Q 6 -Start Duonebs metabolic lactic acidosis - improved Hyperkalemia -Repeat Labs at 1300 Afib - hx Eliquis T2DM SSI HTN HLD BPH Continue home meds BRITTANY BARRIOS DO Dec 20, 2020 06:16
[2020-12-20 06:45] LABS: BASOPHILS # (AUTO) 0.1 10^3/uL (0.0-0.1); BASOPHILS % (AUTO) 1 % (0-10); EOSINOPHILS # (AUTO) 0.1 10^3/uL (0.0-0.3); EOSINOPHILS % (AUTO) 1 % (0-10); LYMPHOCYTES # (AUTO) 0.7 10^3/uL (1.0-4.0); LYMPHOCYTES % (AUTO) 8 % (12-44); MEAN CORPUSCULAR HEMOGLOBIN 28 pg (25-34); MEAN CORPUSCULAR HGB CONC 32 g/dL (32-36); MEAN CORPUSCULAR VOLUME 87 fL (80-99); MEAN PLATELET VOLUME 9.6 fL (9.0-12.2); MONOCYTES # (AUTO) 0.9 10^3/uL (0.0-1.0); MONOCYTES % (AUTO) 10 % (0-12); NEUTROPHILS # (AUTO) 7.2 10^3/uL (1.8-7.8); NEUTROPHILS % (AUTO) 80 % (42-75); PLATELET COUNT 345 10^3/uL (130-400)
[2020-12-20 06:48] LABS: HEMATOCRIT 20 % (40-54); HEMOGLOBIN 6.5 g/dL (13.3-17.7)
[2020-12-20] MEDS: RT-ALBUTEROL INHALER HFA (VENTOLIN HFA) 18 GM IH SCH ×5 (06:54→22:00)
[2020-12-20] MEDS ORDERED: NS IV 500 ML 500 ML IV SCH (07:00)
[2020-12-20] MEDS: CATHETER FLUSH 10 ML SYR IV SCH ×3 (07:04→21:02)
[2020-12-20] MEDS: methylPREDNISolone 40 MG/ML (Solu-MEDROL) VIAL IV SCH ×4 (07:04→23:04)
[2020-12-20 07:12] LABS: ALANINE AMINOTRANSFERASE 59 U/L (0-55); ALBUMIN 2.7 GM/DL (3.2-4.5); ALKALINE PHOSPHATASE 84 U/L (40-136); BILIRUBIN,TOTAL 0.8 MG/DL (0.1-1.0); BUN/CREATININE RATIO 24; CALCIUM 8.5 MG/DL (8.5-10.1); CARBON DIOXIDE 22 MMOL/L (21-32); CHLORIDE 101 MMOL/L (98-107); CREATININE SERUM 0.66 MG/DL (0.60-1.30); GFR ESTIMATED > 60; GLUCOSE 79 MG/DL (70-105); POTASSIUM 4.1 MMOL/L (3.6-5.0); SODIUM 132 MMOL/L (135-145); TOTAL PROTEIN 5.5 GM/DL (6.4-8.2)
--- NOTE | 2020-12-20 07:51 | Diagnostic Imaging Report ---
Indication: Positive for COVID Portable chest shows normal heart size and vascularity. There are bilateral infiltrates with consolidations in both mid lungs. There is no effusion or pneumothorax. These findings are similar to the 12/19/2020 study. IMPRESSION: Stable bilateral infiltrates. Report was faxed to [facility]/RN Infection Control by tamia at 7:50AM. Dictated by: Dictated on workstation # [id number]
[2020-12-20] MEDS: DOCUSATE SODIUM 100 MG (COLACE) CAP PO SCH ×2 (08:11→21:01)
[2020-12-20] MEDS: CEFEPIME 1,000 MG/SWFI 10 ML IV PUSH IV SCH ×6 (08:11→23:05)
[2020-12-20 08:55] VITALS: BP 135/52
[2020-12-20 09:00] VITALS: BP 138/63
[2020-12-20] MEDS ORDERED: PANTOPRAZOLE 40 MG (PROTONIX) VIAL IV SCH (09:00)
--- NOTE | 2020-12-20 10:14 | History & Physical-Hospitalist ---
History of Present Illness HPI/Chief Complaint Pt is an 85yoCM with a PMH pAF, DM, COPD on 19/05 6lpm oxygen, HTD, HLD who presented to the ER due to SOB. He states he has had a cough for a few days but yesterday developed SOB and flu like symptoms. He denies any sick contacts. He denies loss of taste nor smell. He denies nausea, vomiting, and diarrhea. He reports feeling a little better today now that he is on Vapotherm. RN reports increased need of oxygen slightly this morning. Source: patient Date Seen 12/20/20 Time Seen by a Provider: 10:03 Attending Physician Helene Mendosa MD PCP Tariq Howe DO Referring Physician Date of Admission Dec 19, 2020 at 17:30 Home Medications & Allergies Home Medications Reviewed patient Home Medication Reconciliation performed by pharmacy medication reconciliations medical office technician and/or nursing. Patients Allergies have been reviewed. Allergies Allergies Coded Allergies No Known Drug Allergies (Unverified06/15/20) Past Fkflchu-Tpdhlo-Ejrpau Hx Past Med/Social Hx: Reviewed Nursing Past Med/Soc Hx Patient Social History Marrital Status: Alcohol Use: Regular Use Alcohol Beverage of Choice: Beer, Wine Recreational Drug Use: No Smoking Status: Former Smoker Former Smoker, Quit: Jul 26, 1984 2nd Hand Smoke Exposure: Yes Recent Foreign Travel: No Contact w/other who traveled: No Recent Hopitalizations: No Recent Infectious Disease Expo: No Immunizations Up To Date Tetanus Booster (TDap): Unknown Date of Pneumonia Vaccine: Aug 03, 2018 Date of Influenza Vaccine: Aug 02, 2020 Seasonal Allergies Seasonal Allergies: Yes (RUNNY NOSE) Past Medical History Surgeries: Orthopedic Respiratory: COPD Currently Using CPAP: No Currently Using BIPAP: No Cardiac: Atrial Fibrillation, Coronary Artery Disease, High Cholesterol, Hypertension, Valvular Heart Disease Neurological: Stroke Reproductive: No Sexually Transmitted Disease: No HIV/AIDS: No Genitourinary: Benign Prostatic Hyperpl Gastrointestinal: Gastroesophageal Reflux, Diverticulosis, Polyps Musculoskeletal: Arthritis, Chronic Back Pain Endocrine: Diabetes, Non-Insulin dep HEENT: Cataract Loss of Vision: Denies Hearing Impairment: Hard of Hearing, Bilateral Hearing Aide Skin/Integumentary: Eczema, Psoriasis History of Blood Disorders: Yes (HX ANEMIA -BLEEDING ULCER) Adverse Reaction to Blood Gomez: No (HAS HAD BLOOD WITH NO REACTION) Family History Reviewed Nursing Family Hx FH: liver disease 19 MOTHER FH: lung cancer 19 FATHER Review of Systems Constitutional: chills; No fever; malaise EENTM: No mouth pain, No nose congestion Respiratory: cough; No hemoptysis, No orthopnea; short of breath Cardiovascular: No chest pain; Hx of Intervention; No palpitations Gastrointestinal: No abdominal pain, No diarrhea, No nausea, No vomiting Genitourinary: no symptoms reported Musculoskeletal: no symptoms reported Skin: no symptoms reported Psychiatric/Neurological: No Symptoms Reported Physical Exam Physical Exam Vital Signs Vital Signs - First Documented 12/19/20 18:16 FiO2 80 Capillary Refill : Less Than 3 Seconds Height, Weight, BMI Height: 5'7.00" Weight: 140lbs. 0.0oz. [id number]; 21.15 BMI Method:Stated General Appearance: No Apparent Distress, Chronically ill, Thin HEENT: PERRL/EOMI, Moist Mucous Membranes; No Scleral Icterus (L), No Scleral Icterus (R) Neck: Normal Inspection, Supple Respiratory: No Accessory Muscle Use, Decreased Breath Sounds; No Wheezing; Other (on Vapotherm) Cardiovascular: Regular Rate, Rhythm, No Murmur Gastrointestinal: Normal Bowel Sounds, Non Tender, Soft Extremity: No Calf Tenderness, No Pedal Edema Neurologic/Psychiatric: Alert, Oriented x3, 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 Results Results/Procedures Labs Laboratory Tests 12/19/20 16:10 12/20/20 03:49 12/20/20 05:33 Patient resulted labs reviewed. Imaging: Reviewed Imaging Report Assessment/Plan Admission Diagnosis Acute on chronic respiratory failure Admission Status: Inpatient Order (span 2 midnights) Reason for Inpatient Admission: see below Assessment and Plan Acute on chronic respiratory failure Pneumonia COPD COVID PUI Continue on Cefepime and Vanc Currently on Vapotherm Pulm consulted, appreciate recs Continue Steroids Await COVID PCR Anemia History of GI bleed Hold anticoagulation 1 unit pRBCs ordered Surgery consulted EGD ins 2017 for upper GI bleed and colonoscopy in 2019 pAF HTN HLD Hold anticoagulation Otherwise continue home meds Consult cardiology NIDDMII Hold metformin SSI DVT ppx: SCDs only HELENE MENDOSA MD Dec 20, 2020 10:14
[2020-12-20] MEDS ORDERED: FUROSEMIDE 40 MG/4 ML INJ (LASIX) IVP ONE (10:15)
[2020-12-20] MEDS: inSUlin ASPART (NovoLOG) 1 UNIT/0.01 ML (CHARGE PER UNIT) SC SCH ×3 (10:56→20:13)
[2020-12-20 10:57] VITALS: BP 134/57
[2020-12-20] MEDS ORDERED: DILT180C82 PO (11:50)
[2020-12-20] MEDS ORDERED: AMIO200T6 PO (11:50)
[2020-12-20] MEDS ORDERED: BETHANECHOL PO (11:50)
[2020-12-20] MEDS ORDERED: SODI0.5GEL NSEACH (11:57)
[2020-12-20] MEDS ORDERED: PROM473S9 PO (12:17)
[2020-12-20 14:05] VITALS: BP 126/54
[2020-12-20 14:09] LABS: BASOPHILS % (AUTO) 0 % (0-10); EOSINOPHILS % (AUTO) 0 % (0-10); HEMATOCRIT 29 % (40-54); HEMOGLOBIN 9.2 g/dL (13.3-17.7); LYMPHOCYTES # (AUTO) 0.2 10^3/uL (1.0-4.0); LYMPHOCYTES % (AUTO) 3 % (12-44); MEAN CORPUSCULAR HEMOGLOBIN 28 pg (25-34); MEAN CORPUSCULAR HGB CONC 32 g/dL (32-36); MEAN CORPUSCULAR VOLUME 86 fL (80-99); MEAN PLATELET VOLUME 9.5 fL (9.0-12.2); MONOCYTES % (AUTO) 1 % (0-12); NEUTROPHILS # (AUTO) 6.4 10^3/uL (1.8-7.8); NEUTROPHILS % (AUTO) 95 % (42-75); PLATELET COUNT 404 10^3/uL (130-400); WHITE BLOOD COUNT 6.7 10^3/uL (4.3-11.0)
[2020-12-20 14:13] LABS: CHLORIDE 96 MMOL/L (98-107); POTASSIUM 3.7 MMOL/L (3.6-5.0); SODIUM 133 MMOL/L (135-145)
[2020-12-20 14:15] LABS: CALCIUM 8.8 MG/DL (8.5-10.1); GLUCOSE 160 MG/DL (70-105)
[2020-12-20 14:16] LABS: CARBON DIOXIDE 27 MMOL/L (21-32)
[2020-12-20 14:19] LABS: CREATININE SERUM 0.74 MG/DL (0.60-1.30); GFR ESTIMATED > 60
[2020-12-20 14:20] LABS: BUN/CREATININE RATIO 24
[2020-12-20] MEDS ORDERED: VANCOMYCIN 1 GM/NS 250 ML IVPB IV SCH ×2 (16:00)
--- NOTE | 2020-12-20 17:44 | Consultation - Surgery ---
History of Present Illness History of Present Illness Patient Consulted On(ray/time) 12/20/20 17:38 Time Seen by Provider: 10:38 History of Present Illness Surgery asked to consult regarding Anemia and GI bleed. HPI per ED: Patient presents ER by EMS from home with chief complaint last couple hours she started having chills and flulike symptoms with a cough shortness of air. Patient is at baseline on 6 L by nasal cannula. He has not smoked in many years. Followed by Dr. Howe. His had Dr. Howe run some labs at [facility] lab this morning but he does not know the results. He has had one of his COVID-19 vaccines 2 weeks ago. No known sick contacts. No fevers vomiting chest pain diarrhea or nausea. No dysuria. Loose nonproductive cough. HPI per IM: Pt is an 85yoCM with a PMH pAF, DM, COPD on 19/05 6lpm oxygen, HTD, HLD who presented to the ER due to SOB. He states he has had a cough for a few days but yesterday developed SOB and flu like symptoms. He denies any sick contacts. He denies loss of taste nor smell. He denies nausea, vomiting, and diarrhea. He reports feeling a little better today now that he is on Vapotherm. RN reports increased need of oxygen slightly this morning. When I spoke to pt this am he states his main complaint is weakness and SOB. He denied any hematochezia, hematemesis or melena. Pt had a colonoscopy a couple years ago and is unsure if he has had an EGD. Allergies and Home Medications Allergies Coded Allergies: No Known Drug Allergies (Unverified , 06/15/20) Home Medications Albuterol Sulfate 2.5 Mg/3 Ml Vial.neb, 2.5 MG NEB Q6H PRN for SHORTNESS OF BR EATH, (Reported) Alfuzosin HCl 10 Mg Tab.er.24h, 10 MG PO DAILY, (Reported) Amiodarone HCl 200 Mg Tablet, 200 MG PO DAILY, (Reported) Apixaban 2.5 Mg Tablet, 2.5 MG PO BID, (Reported) Atorvastatin Calcium 40 Mg Tablet, 40 MG PO HS, (Reported) Diltiazem HCl 180 Mg Capsule.er, 180 MG PO DAILY, (Reported) Docusate Sodium 100 Mg Capsule, 100 MG PO DAILY PRN for CONSTIPATION-1ST LINE, (Reported) Losartan Potassium 25 Mg Tablet, 25 MG PO HS, (Reported) Metformin HCl 500 Mg Tab.er.24h, 500 MG PO 1800, (Reported) Pantoprazole Sodium 40 Mg Tablet.dr, 40 MG PO DAILY, (Reported) Promethazine HCl/Codeine 473 Ml Syrup, 10 ML PO Q8H PRN for COUGH, (Reported) Sodium Chloride/Aloe Vera 14.1 Gm Gel..gram., 1 APPLIC NSEACH PRN PRN for DRY NOSE, (Reported) [Bethanechol] 25 TAB, 25 MG PO 0700,1200, (Reported) LAST FILLED 02-17-2020 #360/180 DAY SUPPLY Patient Home Medication List Home Medication List Reviewed: Yes Past Zttcvgx-Lwopww-Rqskew Hx Patient Social History Number of Drinks Today: Smoking Status: Former Smoker Former Smoker, Quit: Jul 26, 1984 2nd Hand Smoke Exposure: Yes Recent Hopitalizations: No Immunizations Up To Date Tetanus Booster (TDap): Unknown Date of Pneumonia Vaccine: Aug 03, 2018 Date of Influenza Vaccine: Aug 02, 2020 Seasonal Allergies Seasonal Allergies: Yes (RUNNY NOSE) Surgeries History of Surgeries: Yes (ESPHAGAS SURG, HERNIA,R SHOULDER, BACK, CATARACTS, CTR) Surgeries: Orthopedic Respiratory History of Respiratory Disorde: Yes Respiratory Disorders: Pneumonia Cardiovascular History of Cardiac Disorders: Yes (PAROXYSMAL A FIB) Cardiac Disorders: Atrial Fibrillation, Coronary Artery Disease, High Cholesterol, Hypertension, Valvular Heart Disease Neurological History of Neurological Disord: Yes Neurological Disorders: Stroke Reproductive System Hx Reproductive Disorders: No Sexually Transmitted Disease: No HIV/AIDS: No Genitourinary History of Genitourinary Disor: No Genitourinary Disorders: Benign Prostatic Hyperpl Gastrointestinal History of Gastrointestinal Di: Yes (HX BLEEDING ULCER) Gastrointestinal Disorders: Gastroesophageal Reflux, Diverticulosis, Polyps Musculoskeletal History of Musculoskeletal Dis: Yes (ORTHO SURGERY) Musculoskeletal Disorders: Arthritis, Chronic Back Pain Endocrine History of Endocrine Disorders: Yes (DM TYPE II) Endocrine Disorders: Diabetes, Non-Insulin dep HEENT History of HEENT Disorders: Yes (GLASSES, DENTURES) HEENT Disorders: Cataract Loss of Vision: Denies Hearing Impairment: Hard of Hearing, Bilateral Hearing Aide Cancer History of Cancer: No Psychosocial History of Psychiatric Problem: No Integumentary History of Skin or Integumenta: Yes (MILD) Skin/Integumentary Disorders: Eczema, Psoriasis Blood Transfusions History of Blood Disorders: Yes (HX ANEMIA -BLEEDING ULCER) Adverse Reaction to a Blood Tr: No (HAS HAD BLOOD WITH NO REACTION) Family Medical History Significant Family History: Cancer Family Medial History: FH: liver disease 19 MOTHER FH: lung cancer 19 FATHER Review of Systems-General Constitutional: dizziness; No fever; malaise, weakness EENTM: No blurred vision, No double vision, No mouth pain, No mouth swelling, No epistaxis Respiratory: cough; No dyspnea on exertion, No hemoptysis; short of breath Cardiovascular: No chest pain; Hx of Intervention, palpitations Gastrointestinal: No abdominal pain, No constipation, No nausea, No vomiting Genitourinary: No dysuria, No frequency, No hematuria Musculoskeletal: joint pain, joint swelling, muscle pain, muscle stiffness Skin: No change in color, No change in hair/nails, No lesions Psychiatric/Neurological: Denies Anxiety, Denies Depressed, Denies Seizure, Denies Tingling Other Pt is on blood thinners and has easy bruising and bleeding that "takes a while to stop" Physical Exam-General Problems Physical Exam Vital Signs Vital Signs - First Documented 12/19/20 18:16 FiO2 80 Capillary Refill : Less Than 3 Seconds General Appearance: no apparent distress, thin Eyes: Bilateral Eye PERRL, Bilateral Eye EOMI HEENT: pharynx normal; No scleral icterus (R), No scleral icterus (L) Neck: non-tender, supple Respiratory: lungs clear, decreased breath sounds, accessory muscle use Cardiovascular: regular rate, rhythm, no murmur Gastrointestinal: non tender, soft, no organomegaly, no pulsatile mass Back: no CVA tenderness, no vertebral tenderness Extremities: no pedal edema, no calf tenderness, normal capillary refill 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, alert, oriented x 3 Skin: warm/dry, pallor Lymphatic: no adenopathy (neck, axilla or groin) Data Review Labs Laboratory Tests 12/19/20 18:34: Lactic Acid Level 1.14 12/20/20 03:49: White Blood Count 9.1, Red Blood Count 2.51L, Hemoglobin 7.1L, Hematocrit 22L, Mean Corpuscular Volume 86, Mean Corpuscular Hemoglobin 28, Mean Corpuscular Hemoglobin Concent 33, Red Cell Distribution Width 15.9H, Platelet Count 413H, Mean Platelet Volume 10.4, Immature Granulocyte % (Auto) 0, Neutrophils (%) (Auto) 78H, Lymphocytes (%) (Auto) 10L, Monocytes (%) (Auto) 11, Eosinophils (%) (Auto) 1, Basophils (%) (Auto) 1, Neutrophils # (Auto) 7.0, Lymphocytes # (Auto) 0.9L, Monocytes # (Auto) 1.0, Eosinophils # (Auto) 0.1, Basophils # (Auto) 0.1, Immature Granulocyte # (Auto) 0.0, Sodium Level 131L, Potassium Level 5.4H, Chloride Level 100, Carbon Dioxide Level 22, Anion Gap 9, Blood Urea Nitrogen 18, Creatinine 0.67, Estimat Glomerular Filtration Rate > 60, BUN/Creatinine Ratio 27, Glucose Level 76, Calcium Level 8.1L, Corrected Calcium 9.1, Phosphorus Level 3.2, Magnesium Level 1.8, Total Bilirubin 0.8, Aspartate Amino Transf (AST/SGOT) 84H, Alanine Aminotransferase (ALT/SGPT) 64H, Alkaline Phosphatase 88, Total Protein 6.6, Albumin 2.8L 12/20/20 05:33: White Blood Count 9.0, Red Blood Count 2.32L, Hemoglobin 6.5*L, Hematocrit 20*L, Mean Corpuscular Volume 87, Mean Corpuscular Hemoglobin 28, Mean Corpuscular Hemoglobin Concent 32, Red Cell Distribution Width 15.6H, Platelet Count 345, Mean Platelet Volume 9.6, Immature Granulocyte % (Auto) 0, Neutrophils (%) (Auto) 80H, Lymphocytes (%) (Auto) 8L, Monocytes (%) (Auto) 10, Eosinophils (%) (Auto) 1, Basophils (%) (Auto) 1, Neutrophils # (Auto) 7.2, Lymphocytes # (Auto) 0.7L, Monocytes # (Auto) 0.9, Eosinophils # (Auto) 0.1, Basophils # (Auto) 0.1, Immature Granulocyte # (Auto) 0.0, Sodium Level 132L, Potassium Level 4.1, Chloride Level 101, Carbon Dioxide Level 22, Anion Gap 9, Blood Urea Nitrogen 16, Creatinine 0.66, Estimat Glomerular Filtration Rate > 60, BUN/Creatinine Ratio 24, Glucose Level 79, Calcium Level 8.5, Corrected Calcium 9.5, Total Bilirubin 0.8, Aspartate Amino Transf (AST/SGOT) 56H, Alanine Aminotransferase (ALT/SGPT) 59H, Alkaline Phosphatase 84, Total Protein 5.5L, Albumin 2.7L, B- Type Natriuretic Peptide 642.1H, Procalcitonin 0.30H 12/20/20 06:33: 12/20/20 10:12: Glucometer 160H 12/20/20 13:56: White Blood Count 6.7, Red Blood Count 3.32L, Hemoglobin 9.2#L, Hematocrit 29L, Mean Corpuscular Volume 86, Mean Corpuscular Hemoglobin 28, Mean Corpuscular Hemoglobin Concent 32, Red Cell Distribution Width 15.1H, Platelet Count 404H, Mean Platelet Volume 9.5, Immature Granulocyte % (Auto) 1, Neutrophils (%) (Auto) 95H, Lymphocytes (%) (Auto) 3L, Monocytes (%) (Auto) 1, Eosinophils (%) (Auto) 0, Basophils (%) (Auto) 0, Neutrophils # (Auto) 6.4, Lymphocytes # (Auto) 0.2L, Monocytes # (Auto) 0.0, Eosinophils # (Auto) 0.0, Basophils # (Auto) 0.0, Immature Granulocyte # (Auto) 0.0, Sodium Level 133L, Potassium Level 3.7, Chloride Level 96L, Carbon Dioxide Level 27, Anion Gap 10, Blood Urea Nitrogen 18, Creatinine 0.74, Estimat Glomerular Filtration Rate > 60, BUN/Creatinine Ratio 24, Glucose Level 160H, Calcium Level 8.8 12/20/20 16:15: Glucometer 188H Microbiology 12/19/20 Blood Culture - Preliminary, Resulted No growth 12/19/20 Influenza Types A,B Antigen (CONOR) - Final, Complete Assessment/Plan Assessment/Plan Assessment/Plan GI Bleed Anemia Mildly elevated Liver Functions Hyperkalemia - resolved Lactic Acidosis -resolved Hypoxia - better on O2 Pt was PUI, but now both Covid tests (rapid and PCR) were negative. He came in with hemoglobin of 8.1 which then dropped to 6.5 and he was transfused and it came up to 9.2. We have been unable to get a Hemoccult, because he has not had a BM (given colace and is eating). A colonoscopy in 2019 was normal, but the EGD in 2018 showed a duodenal ulcer. I will make pt NPO after midnight and plan to do an EGD tomorrow; with possible biopsy. I discussed the procedure with the pt; risk and complications not limited to pain, bleeding, infection and even esophageal perforation. All questions answered to his satisfaction. The purpose of the procedure is to determine why he is anemic. Monitor labs and electrolytes, replace as needed. IV fluids. EVENS CARRERO DO Dec 20, 2020 17:44
[2020-12-20] MEDS: ACETAMINOPHEN 325 MG TABLET PO PRN (21:01)
[2020-12-20] MEDS: PANTOPRAZOLE 40 MG (PROTONIX) VIAL IV SCH (21:01)
[2020-12-21] MEDS: ACETAMINOPHEN 325 MG TABLET PO PRN ×2 (02:47→20:29)
[2020-12-21] MEDS: RT-ALBUTEROL INHALER HFA (VENTOLIN HFA) 18 GM IH SCH ×6 (02:48→22:06)
[2020-12-21 03:21] LABS: BASOPHILS % (AUTO) 0 % (0-10); EOSINOPHILS % (AUTO) 0 % (0-10); HEMATOCRIT 25 % (40-54); HEMOGLOBIN 8.2 g/dL (13.3-17.7); LYMPHOCYTES # (AUTO) 0.4 10^3/uL (1.0-4.0); LYMPHOCYTES % (AUTO) 6 % (12-44); MEAN CORPUSCULAR HEMOGLOBIN 28 pg (25-34); MEAN CORPUSCULAR HGB CONC 33 g/dL (32-36); MEAN CORPUSCULAR VOLUME 85 fL (80-99); MEAN PLATELET VOLUME 9.6 fL (9.0-12.2); MONOCYTES # (AUTO) 0.2 10^3/uL (0.0-1.0); MONOCYTES % (AUTO) 3 % (0-12); NEUTROPHILS # (AUTO) 7.2 10^3/uL (1.8-7.8); NEUTROPHILS % (AUTO) 91 % (42-75); PLATELET COUNT 365 10^3/uL (130-400); WHITE BLOOD COUNT 7.9 10^3/uL (4.3-11.0)
[2020-12-21 03:37] LABS: CHLORIDE 96 MMOL/L (98-107); POTASSIUM 3.6 MMOL/L (3.6-5.0); SODIUM 132 MMOL/L (135-145)
[2020-12-21 03:38] LABS: CALCIUM 8.4 MG/DL (8.5-10.1); GLUCOSE 146 MG/DL (70-105)
[2020-12-21 03:40] LABS: CARBON DIOXIDE 23 MMOL/L (21-32)
[2020-12-21 03:42] LABS: CREATININE SERUM 0.76 MG/DL (0.60-1.30); GFR ESTIMATED > 60; PHOSPHORUS 4.1 MG/DL (2.3-4.7)
[2020-12-21 03:43] LABS: BUN/CREATININE RATIO 28
[2020-12-21 03:45] LABS: MAGNESIUM 1.8 MG/DL (1.6-2.4)
--- NOTE | 2020-12-21 04:17 | Diagnostic Imaging Report ---
Indication: Pneumonia Portable chest 3:06 AM There are dense perihilar alveolar infiltrates in both lungs. There is cardiomegaly. There are no effusions or pneumothoraces. IMPRESSION: Consolidating perihilar infiltrates consistent with pneumonia and unchanged from the previous day. Dictated by: Dictated on workstation # [id number]
[2020-12-21] MEDS: POTASSIUM CL 10MEQ/50ML IVPB 50 ML IV SCH (04:34)
[2020-12-21] MEDS: MAGNESIUM 1 GM/100 ML IVPB 100 ML IV SCH (04:35)
[2020-12-21] MEDS: KCL 20 MEQ TAB (K-DUR) PO SCH (04:35)
--- NOTE | 2020-12-21 05:50 | Pulmonary Progress Note ---
Subjective Time Seen by a Provider: 05:48 Subjective/Events-last exam No complications noted. Sepsis Event Evaluation Height, Weight, BMI Height: 5'7.00" Weight: 140lbs. 0.0oz. 63.677405pg; 21.15 BMI Method:Stated Focused Exam Lactate Level 12/19/20 16:10: Lactic Acid Level 3.68*H 12/19/20 18:34: Lactic Acid Level 1.14 Time of Focused Exam: 16:51 Exam Exam Vital Signs Date Time Temp Pulse Resp B/P (MAP) Pulse Ox O2 Delivery O2 Flow Rate FiO2 12/21/20 04:29 36.8 94 Vapotherm 35.00 60.00 12/21/20 04:18 94 Vapotherm 35.00 60 12/21/20 03:00 82 20 139/63 (88) 92 Vapotherm 35.00 60.00 12/21/20 02:00 74 18 144/65 (91) 93 Vapotherm 35.00 60.00 12/21/20 01:00 74 12/21/20 01:00 75 24 143/74 (97) 95 Vapotherm 35.00 60.00 12/21/20 00:00 75 29 146/65 (92) 98 Vapotherm 35.00 60.00 12/20/20 23:49 92 Vapotherm 30.00 70 12/20/20 23:39 36.4 91 35.00 60.00 12/20/20 23:00 76 29 141/64 (89) 89 Vapotherm 30.00 60.00 12/20/20 22:11 92 Vapotherm 30.00 60.00 12/20/20 22:00 96 Vapotherm 30.00 70 12/20/20 22:00 74 27 135/60 (85) 97 Vapotherm 30.00 70.00 12/20/20 21:00 82 26 132/58 (82) 87 Vapotherm 30.00 70.00 12/20/20 20:00 92 Vapotherm 30.00 70 12/20/20 20:00 76 15 144/63 (90) 96 Vapotherm 30.00 70.00 12/20/20 19:07 36.6 12/20/20 19:00 77 12/20/20 19:00 36.0 Vapotherm 30.00 70.00 12/20/20 18:43 93 Vapotherm 30.00 70 12/20/20 18:00 82 30 154/66 (95) 91 Vapotherm 30.00 70.00 12/20/20 17:00 74 20 139/61 (87) 98 Vapotherm 30.00 70.00 12/20/20 16:15 35.8 12/20/20 16:00 90 Vapotherm 30.00 70 12/20/20 16:00 75 17 134/60 (84) 95 Vapotherm 30.00 70.00 12/20/20 15:00 80 36 124/58 (80) 98 Vapotherm 30.00 70.00 12/20/20 14:34 97 Vapotherm 30.00 70 12/20/20 14:05 36.4 74 94 70 12/20/20 14:00 80 31 81/61 (68) 94 Vapotherm 30.00 70.00 12/20/20 13:00 73 18 134/57 (82) 96 Vapotherm 30.00 70.00 12/20/20 12:59 74 12/20/20 12:00 36.4 12/20/20 12:00 72 20 126/54 (78) 98 Vapotherm 30.00 70.00 12/20/20 11:33 90 Vapotherm 30.00 70 12/20/20 11:00 77 31 139/80 (99) 97 Vapotherm 30.00 70.00 12/20/20 10:57 36.5 84 22 134/57 90 Vapotherm 30.00 70 12/20/20 10:32 94 Vapotherm 30.00 70 12/20/20 10:00 75 134/55 (81) 96 Vapotherm 30.00 70.00 12/20/20 09:00 80 138/63 (88) 92 Vapotherm 30.00 70.00 12/20/20 09:00 36.3 83 20 138/63 90 Vapotherm 30.00 70 12/20/20 08:55 36.3 84 20 135/52 90 Vapotherm 30.00 70 12/20/20 08:00 90 Vapotherm 30.00 70 12/20/20 08:00 75 31 135/57 (83) 91 Vapotherm 30.00 70.00 12/20/20 07:31 36.9 12/20/20 07:04 Manual Cuff/Auscultation 12/20/20 07:00 79 41 131/60 (83) 86 Vapotherm 30.00 70.00 12/20/20 06:56 90 Vapotherm 30.00 65 12/20/20 06:45 73 12/20/20 06:00 75 25 140/61 (87) 94 Vapotherm 30.00 70.00 I & O0 12/21/20 07:00 Intake Total 1580 ml Output Total 2700 ml Balance -1120 ml Height & Weight Height: 5'7.00" Weight: 140lbs. 0.0oz. 63.662382sv; 21.15 BMI Method:Stated General Appearance: No Apparent Distress, Chronically ill, Thin HEENT: PERRL/EOMI, Moist Mucous Membranes; No Scleral Icterus (L), No Scleral Icterus (R) Neck: Normal Inspection, Supple Respiratory: No Accessory Muscle Use, Decreased Breath Sounds; No Wheezing; Other (on Vapotherm) Cardiovascular: Regular Rate, Rhythm, No Murmur Capillary Refill: Less Than 3 Seconds Peripheral Pulses: 2+ Radial Pulses (R), 2+ Radial Pulses (L) Gastrointestinal: non tender, soft, no organomegaly, no pulsatile mass Extremity: No Calf Tenderness, No Pedal Edema Neurologic/Psychiatric: Alert, Oriented x3, 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 Results Lab Laboratory Tests 12/19/20 16:10 12/20/20 03:49 12/20/20 05:33 12/20/20 13:56 12/21/20 02:55 Assessment/Plan Assessment/Plan Pneumonia with severe sepsis -COVID negative -Cefepime, and vanco -Vapotherm -- 60% Acute on chronic respiratory failure Severe oxygen dependent COPD - He uses 6 liters of oxygen at home -Start solumedrol 40Q 6 -Start Duonebs metabolic lactic acidosis - improved Afib - hx Eliquis T2DM SSI HTN HLD BPH Continue home meds BRITTANY BARRIOS DO Dec 21, 2020 05:50
[2020-12-21] MEDS ORDERED: KCL 20 MEQ TAB (K-DUR) PO ONE (06:00)
[2020-12-21] MEDS: methylPREDNISolone 40 MG/ML (Solu-MEDROL) VIAL IV SCH ×3 (06:08→17:20)
[2020-12-21] MEDS: CEFEPIME 1,000 MG/SWFI 10 ML IV PUSH IV SCH ×4 (06:08→14:21)
[2020-12-21] MEDS: inSUlin ASPART (NovoLOG) 1 UNIT/0.01 ML (CHARGE PER UNIT) SC SCH ×4 (06:08→20:30)
[2020-12-21] MEDS: CATHETER FLUSH 10 ML SYR IV SCH ×2 (06:08→12:38)
--- NOTE | 2020-12-21 07:31 | Progress Note - Surgery ---
JAYDEN BUCK MED STUDENT 12/21/20 0731: Subjective Date Seen by a Provider: Dec 21, 2020 Time Seen by a Provider: 07:25 Subjective/Events-last exam Pt awake and lying in bed upon entry. Pt states that he is feeling better overall. No BM yet, but passing gas. Pt denies abdominal pain, N/V, chills. Only complaint is that he did not sleep well and is ready to be able to eat. Review of Systems General: No Chills, No Fatigue HEENT: No Head Aches, No Visual Changes Pulmonary: Dyspnea, Cough Cardiovascular: No: Chest Pain, Palpitations Gastrointestinal: Constipation; No: Nausea, Vomiting, Abdominal Pain Genitourinary: No Dysuria; Other (catheter in place) Musculoskeletal: back pain; No: leg pain Neurological: No: Numbness, Confusion Focused Exam Lactate Level 12/19/20 16:10: Lactic Acid Level 3.68*H 12/19/20 18:34: Lactic Acid Level 1.14 Time of Focused Exam: 16:51 Objective Exam Vital Signs Date Time Temp Pulse Resp B/P (MAP) Pulse Ox O2 Delivery O2 Flow Rate FiO2 12/21/20 06:53 92 Vapotherm 25.00 55 12/21/20 06:00 73 18 140/67 (91) 97 Vapotherm 35.00 60.00 12/21/20 05:00 71 22 141/62 (88) 93 Vapotherm 35.00 60.00 12/21/20 04:29 36.8 94 Vapotherm 35.00 60.00 12/21/20 04:18 94 Vapotherm 35.00 60 12/21/20 04:00 75 33 138/64 (88) 98 Vapotherm 35.00 60.00 12/21/20 03:00 82 20 139/63 (88) 92 Vapotherm 35.00 60.00 12/21/20 02:00 74 18 144/65 (91) 93 Vapotherm 35.00 60.00 12/21/20 01:00 74 12/21/20 01:00 75 24 143/74 (97) 95 Vapotherm 35.00 60.00 12/21/20 00:00 75 29 146/65 (92) 98 Vapotherm 35.00 60.00 12/20/20 23:49 92 Vapotherm 30.00 70 12/20/20 23:39 36.4 91 35.00 60.00 12/20/20 23:00 76 29 141/64 (89) 89 Vapotherm 30.00 60.00 12/20/20 22:11 92 Vapotherm 30.00 60.00 12/20/20 22:00 96 Vapotherm 30.00 70 12/20/20 22:00 74 27 135/60 (85) 97 Vapotherm 30.00 70.00 12/20/20 21:00 82 26 132/58 (82) 87 Vapotherm 30.00 70.00 12/20/20 20:00 92 Vapotherm 30.00 70 12/20/20 20:00 76 15 144/63 (90) 96 Vapotherm 30.00 70.00 12/20/20 19:07 36.6 12/20/20 19:00 77 12/20/20 19:00 36.0 Vapotherm 30.00 70.00 12/20/20 18:43 93 Vapotherm 30.00 70 12/20/20 18:00 82 30 154/66 (95) 91 Vapotherm 30.00 70.00 12/20/20 17:00 74 20 139/61 (87) 98 Vapotherm 30.00 70.00 12/20/20 16:15 35.8 12/20/20 16:00 90 Vapotherm 30.00 70 12/20/20 16:00 75 17 134/60 (84) 95 Vapotherm 30.00 70.00 12/20/20 15:00 80 36 124/58 (80) 98 Vapotherm 30.00 70.00 12/20/20 14:34 97 Vapotherm 30.00 70 12/20/20 14:05 36.4 74 94 70 12/20/20 14:00 80 31 81/61 (68) 94 Vapotherm 30.00 70.00 12/20/20 13:00 73 18 134/57 (82) 96 Vapotherm 30.00 70.00 12/20/20 12:59 74 12/20/20 12:00 36.4 12/20/20 12:00 72 20 126/54 (78) 98 Vapotherm 30.00 70.00 12/20/20 11:33 90 Vapotherm 30.00 70 12/20/20 11:00 77 31 139/80 (99) 97 Vapotherm 30.00 70.00 12/20/20 10:57 36.5 84 22 134/57 90 Vapotherm 30.00 70 12/20/20 10:32 94 Vapotherm 30.00 70 12/20/20 10:00 75 134/55 (81) 96 Vapotherm 30.00 70.00 12/20/20 09:00 80 138/63 (88) 92 Vapotherm 30.00 70.00 12/20/20 09:00 36.3 83 20 138/63 90 Vapotherm 30.00 70 12/20/20 08:55 36.3 84 20 135/52 90 Vapotherm 30.00 70 12/20/20 08:00 90 Vapotherm 30.00 70 12/20/20 08:00 75 31 135/57 (83) 91 Vapotherm 30.00 70.00 12/20/20 07:31 36.9 I & O 12/21/20 07:00 Intake Total 1580 ml Output Total 3075 ml Balance -1495 ml Capillary Refill : Less Than 3 Seconds General Appearance: No Apparent Distress, Chronically ill, Thin HEENT: PERRL/EOMI, Moist Mucous Membranes; No Scleral Icterus (L), No Scleral Icterus (R) Neck: Normal Inspection, Non Tender, Supple Respiratory: Chest Non Tender, No Accessory Muscle Use, Crackles, Decreased Breath Sounds; No Wheezing; Other (on Vapotherm) Cardiovascular: Regular Rate, Rhythm, No Edema, No Murmur, Normal Peripheral Pulses Peripheral Pulses: 2+ Dorsalis Pedis (R), 2+ Left Dors-Pedis (L), 2+ Radial Pulses (R), 2+ Radial Pulses (L) Gastrointestinal: non tender, soft Extremity: Normal Inspection, Non Tender, No Calf Tenderness, No Pedal Edema Neurologic/Psychiatric: Alert, Oriented x3, No Motor/Sensory Deficits, 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 Skin: Normal Color, Warm/Dry Lymphatic: No Adenopathy (cervical, supraclavicular, axillary) Results Lab Laboratory Tests 12/20/20 10:12: Glucometer 160H 12/20/20 13:56: White Blood Count 6.7, Red Blood Count 3.32L, Hemoglobin 9.2#L, Hematocrit 29L, Mean Corpuscular Volume 86, Mean Corpuscular Hemoglobin 28, Mean Corpuscular Hemoglobin Concent 32, Red Cell Distribution Width 15.1H, Platelet Count 404H, Mean Platelet Volume 9.5, Immature Granulocyte % (Auto) 1, Neutrophils (%) (Auto) 95H, Lymphocytes (%) (Auto) 3L, Monocytes (%) (Auto) 1, Eosinophils (%) (Auto) 0, Basophils (%) (Auto) 0, Neutrophils # (Auto) 6.4, Lymphocytes # (Auto) 0.2L, Monocytes # (Auto) 0.0, Eosinophils # (Auto) 0.0, Basophils # (Auto) 0.0, Immature Granulocyte # (Auto) 0.0, Sodium Level 133L, Potassium Level 3.7, Chloride Level 96L, Carbon Dioxide Level 27, Anion Gap 10, Blood Urea Nitrogen 18, Creatinine 0.74, Estimat Glomerular Filtration Rate > 60, BUN/Creatinine Ratio 24, Glucose Level 160H, Calcium Level 8.8 12/20/20 16:15: Glucometer 188H 12/20/20 20:11: Glucometer 164H 12/21/20 02:55: White Blood Count 7.9, Red Blood Count 2.94L, Hemoglobin 8.2L, Hematocrit 25L, Mean Corpuscular Volume 85, Mean Corpuscular Hemoglobin 28, Mean Corpuscular Hemoglobin Concent 33, Red Cell Distribution Width 15.0H, Platelet Count 365, Mean Platelet Volume 9.6, Immature Granulocyte % (Auto) 0, Neutrophils (%) (Auto) 91H, Lymphocytes (%) (Auto) 6L, Monocytes (%) (Auto) 3, Eosinophils (%) (Auto) 0, Basophils (%) (Auto) 0, Neutrophils # (Auto) 7.2, Lymphocytes # (Auto) 0.4L, Monocytes # (Auto) 0.2, Eosinophils # (Auto) 0.0, Basophils # (Auto) 0.0, Immature Granulocyte # (Auto) 0.0, Sodium Level 132L, Potassium Level 3.6, Chloride Level 96L, Carbon Dioxide Level 23, Anion Gap 13, Blood Urea Nitrogen 21H, Creatinine 0.76, Estimat Glomerular Filtration Rate > 60, BUN/Creatinine Ratio 28, Glucose Level 146H, Calcium Level 8.4L, Phosphorus Level 4.1, Magnesium Level 1.8 Microbiology 12/19/20 Blood Culture - Preliminary, Resulted No growth 12/19/20 Influenza Types A,B Antigen (CONOR) - Final, Complete Assessment/Plan Assessment/Plan Assessment/Plan GI Bleed Anemia - 8.2 (12/21 AM) Mildly elevated Liver Functions Hyperkalemia - resolved Lactic Acidosis -resolved Hypoxia - better on O2 COVID negative We have been unable to get a Hemoccult, because he has not had a BM NPO EGD to be performed today with possible biopsy. Monitor labs and electrolytes,replace as needed. IV fluids. ALVERTO ESPARZA DO 12/21/20 1058: Subjective Time Seen by a Provider: 07:39 Subjective/Events-last exam Pt seen and examined, thinks he is feeling better. Still no BM. Denies abd pain. Review of Systems General: No Chills, No Fatigue Pulmonary: Dyspnea, Cough Cardiovascular: No: Chest Pain, Palpitations Gastrointestinal: No: Nausea, Vomiting, Abdominal Pain Objective Exam General Appearance: No Apparent Distress, Chronically ill HEENT: PERRL/EOMI, Moist Mucous Membranes Respiratory: No Accessory Muscle Use, Crackles, Decreased Breath Sounds Cardiovascular: Regular Rate, Rhythm, No Murmur Gastrointestinal: non tender, soft, no organomegaly Assessment/Plan Assessment/Plan Assessment/Plan GI Bleed Anemia - 8.2 (12/21 AM) Mildly elevated Liver Functions Hyperkalemia - resolved Lactic Acidosis -resolved Hypoxia - better on O2 COVID negative We have been unable to get a Hemoccult, because he has not had a BM, NPO, EGD to be performed today with possible biopsy. Monitor labs and electrolytes,replace as needed. IV fluids. Supervisory-Addendum Brief Verification & Attestation Participated in pt care: history, MDM, physical Personally performed: exam, history, MDM Care discussed with: Medical Student Procedures: n/a Verification and Attestation of Medical Student E/M Service A medical student performed and documented this service. I then reviewed and verified all information documented by the medical student and made modification s to such information, when appropriate. I personally performed a physical exam, medical decision making and then discussed any differences between the notes and made revisions as necessary to create one note. Alverto Esparza , 12/21/20 , 11:01 JAYDEN BUCK MED STUDENT Dec 21, 2020 07:31 ALVERTO ESPARZA DO Dec 21, 2020 10:58
[2020-12-21] MEDS: PANTOPRAZOLE 40 MG (PROTONIX) VIAL IV SCH ×2 (08:13→20:28)
[2020-12-21] MEDS: DOCUSATE SODIUM 100 MG (COLACE) CAP PO SCH ×2 (08:13→20:28)
--- NOTE | 2020-12-21 08:46 | Consultation-Cardiology ---
HPI-Cardiology Cardiology Consultation Date of Consultation 12/21/20 Date of Admission Time Seen by Provider: 07:25 Indication: shortness of breath HPI 85 years old gentleman with history of paroxysmal atrial fibrillation, COPD, hypertension hyperlipidemia, has been having increasing shortness of breath and reporting episodes of cough and chills. Denied any fever. Dyspnea progressed and he came to the emergency room for evaluation noted to have pneumonia. Patient is currently on Vapotherm. Feeling better, denied any chest pain. Denied any palpitation, syncope or near syncopal episodes Home Medications & Allergies Allergies: Coded Allergies: No Known Drug Allergies (Unverified , 06/15/20) Home Medication List Reviewed: Yes [id number] Hx Patient Social History Marital Status: Recreational Drug Use: No Smoking Status: Former Smoker Former smoker/When Quit: May 01, 1984 2nd Hand Smoke Exposure: Yes Recent Hopitalizations: No Immunizations Up To Date Tetanus Booster (TDap): Unknown Date of Pneumonia Vaccine: Aug 03, 2018 Date of Influenza Vaccine: Aug 02, 2020 Past Medical History Discussed below Family Medical History Significant Family History: Cancer Family History: FH: liver disease 19 MOTHER FH: lung cancer 19 FATHER Review of Systems-General Review of Systems Constitutional: see HPI, dizziness; No fever; malaise, weakness EENTM: see HPI; No blurred vision, No double vision, No mouth pain, No mouth swelling, No epistaxis Respiratory: see HPI, cough; No dyspnea on exertion, No hemoptysis; orthopnea, short of breath Cardiovascular: see HPI; No chest pain; Hx of Intervention, palpitations Gastrointestinal: no symptoms reported, see HPI; No abdominal pain, No constipation, No nausea, No vomiting Genitourinary: see HPI; No dysuria, No frequency, No hematuria Musculoskeletal: see HPI, joint pain, joint swelling, muscle pain, muscle stiffness Skin: see HPI; No change in color, No change in hair/nails, No lesions Psychiatric/Neurological: See HPI; Denies Anxiety, Denies Depressed, Denies Seizure, Denies Tingling All Other Systems Reviewed Negative Unless Noted: Yes Reviewed Test Results Reviewed Test Results Lab Laboratory Tests Test 12/20/20 10:12 12/20/20 13:56 12/20/20 16:15 12/20/20 20:11 Range/Units Glucometer 160 H 188 H 164 H 70-110 MG/DL White Blood Count 6.7 4.3-11.0 10^3/uL Red Blood Count 3.32 L 4.30-5.52 10^6/uL Hemoglobin 9.2 #L 13.3-17.7 g/dL Hematocrit 29 L 40-54 % Mean Corpuscular Volume 86 80-99 fL Mean Corpuscular Hemoglobin 28 25-34 pg Mean Corpuscular Hemoglobin Concent 32 32-36 g/dL Red Cell Distribution Width 15.1 H 10.0-14.5 % Platelet Count 404 H 130-400 10^3/uL Mean Platelet Volume 9.5 9.0-12.2 fL Immature Granulocyte % (Auto) 1 % Neutrophils (%) (Auto) 95 H 42-75 % Lymphocytes (%) (Auto) 3 L 12-44 % Monocytes (%) (Auto) 1 0-12 % Eosinophils (%) (Auto) 0 0-10 % Basophils (%) (Auto) 0 0-10 % Neutrophils # (Auto) 6.4 1.8-7.8 10^3/uL Lymphocytes # (Auto) 0.2 L 1.0-4.0 10^3/uL Monocytes # (Auto) 0.0 0.0-1.0 10^3/uL Eosinophils # (Auto) 0.0 0.0-0.3 10^3/uL Basophils # (Auto) 0.0 0.0-0.1 10^3/uL Immature Granulocyte # (Auto) 0.0 0.0-0.1 10^3/uL Sodium Level 133 L 135-145 MMOL/L Potassium Level 3.7 3.6-5.0 MMOL/L Chloride Level 96 L 98-107 MMOL/L Carbon Dioxide Level 27 21-32 MMOL/L Anion Gap 10 5-14 MMOL/L Blood Urea Nitrogen 18 7-18 MG/DL Creatinine 0.74 0.60-1.30 MG/DL Estimat Glomerular Filtration Rate > 60 BUN/Creatinine Ratio 24 Glucose Level 160 H 70-105 MG/DL Calcium Level 8.8 8.5-10.1 MG/DL Test 12/21/20 02:55 Range/Units White Blood Count 7.9 4.3-11.0 10^3/uL Red Blood Count 2.94 L 4.30-5.52 10^6/uL Hemoglobin 8.2 L 13.3-17.7 g/dL Hematocrit 25 L 40-54 % Mean Corpuscular Volume 85 80-99 fL Mean Corpuscular Hemoglobin 28 25-34 pg Mean Corpuscular Hemoglobin Concent 33 32-36 g/dL Red Cell Distribution Width 15.0 H 10.0-14.5 % Platelet Count 365 130-400 10^3/uL Mean Platelet Volume 9.6 9.0-12.2 fL Immature Granulocyte % (Auto) 0 % Neutrophils (%) (Auto) 91 H 42-75 % Lymphocytes (%) (Auto) 6 L 12-44 % Monocytes (%) (Auto) 3 0-12 % Eosinophils (%) (Auto) 0 0-10 % Basophils (%) (Auto) 0 0-10 % Neutrophils # (Auto) 7.2 1.8-7.8 10^3/uL Lymphocytes # (Auto) 0.4 L 1.0-4.0 10^3/uL Monocytes # (Auto) 0.2 0.0-1.0 10^3/uL Eosinophils # (Auto) 0.0 0.0-0.3 10^3/uL Basophils # (Auto) 0.0 0.0-0.1 10^3/uL Immature Granulocyte # (Auto) 0.0 0.0-0.1 10^3/uL Sodium Level 132 L 135-145 MMOL/L Potassium Level 3.6 3.6-5.0 MMOL/L Chloride Level 96 L 98-107 MMOL/L Carbon Dioxide Level 23 21-32 MMOL/L Anion Gap 13 5-14 MMOL/L Blood Urea Nitrogen 21 H 7-18 MG/DL Creatinine 0.76 0.60-1.30 MG/DL Estimat Glomerular Filtration Rate > 60 BUN/Creatinine Ratio 28 Glucose Level 146 H 70-105 MG/DL Calcium Level 8.4 L 8.5-10.1 MG/DL Phosphorus Level 4.1 2.3-4.7 MG/DL Magnesium Level 1.8 1.6-2.4 MG/DL Physical Exam Physical Exam Vital Signs Vital Signs - First Documented 12/19/20 18:16 FiO2 80 Capillary Refill : Less Than 3 Seconds Height, Weight, BMI Height: 5'7.00" Weight: 140lbs. 0.0oz. 63.505653bp; 21.15 BMI Method:Stated General Appearance: No Apparent Distress, Chronically ill, Thin Eyes: Bilateral Eye Normal Inspection, Bilateral Eye PERRL, Bilateral Eye EOMI HEENT: PERRL/EOMI, Moist Mucous Membranes; No Scleral Icterus (L), No Scleral Icterus (R) Neck: Normal Inspection, Non Tender, Supple Respiratory: Chest Non Tender, No Accessory Muscle Use, Decreased Breath Sounds, Rhonci; No Wheezing; Other (on Vapotherm) Cardiovascular: Regular Rate, Rhythm, No Edema, No Murmur, Normal Peripheral Pulses Gastrointestinal: Normal Bowel Sounds, Non Tender, Soft Extremity: Normal Inspection, Non Tender (cervical, supraclavicular, axillary), No Calf Tenderness, No Pedal Edema Neurologic/Psychiatric: Alert, Oriented x3, No Motor/Sensory Deficits, 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 Skin: Normal Color, Warm/Dry Lymphatic: No Adenopathy A/P-Cardiology Admission Diagnosis Acute respiratory failure Pneumonia Anemia Paroxysmal atrial fibrillation Assessment/Plan Acute respiratory failure, pneumonia, maintained on Vapotherm, managed by primary care team, reporting some improvement. Anemia, status post transfusion one packed RBCs, history of GI bleed and hospitalized in October 2017, EGD showed. Denied ulcer with fibrinous clot on top of it. Received another blood transfusion on this admission. Continue to monitor H&H Paroxysmal atrial fibrillation/flutter, status post in August 2020 electrical cardioversion, currently in sinus rhythm, doing well and tolerating medication well. 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 Patient had initial workup at hospital in [place]. MRI of the head showed subacute infarct, patient is maintained on Eliquis. Continue current medication monitor. History of syncope, patient had tilt table test which revealed severe dizziness and hypotension back in February 2013. Reports improvement, no further episodes of syncope after increasing salt and fluid intake. Hypertension, monitor blood pressure Hyperlipidemia, monitor lipids Diabetes mellitus, followed and managed by Dr. Howe, seen during the hospitalization with Dr. Bedoya Bilateral moderate carotid stenosis, 40-59 percent per most recent carotid duplex done December 2019, continue to monitor. Dysphagia, Zenker diverticulum, status post Zenker diverticulum surgery done by Dr. Estrada. CRISS FOSTER MD Dec 21, 2020 08:46
--- NOTE | 2020-12-21 09:15 | Progress Note - Hospitalist ---
Subjective HPI/CC On Admission Date Seen by Provider: Dec 21, 2020 Time Seen by Provider: 09:10 Pt is an 85yoCM with a PMH pAF, DM, COPD on 24 6lpm oxygen, HTD, HLD who presented to the ER due to SOB. He states he has had a cough for a few days but yesterday developed SOB and flu like symptoms. He denies any sick contacts. He denies loss of taste nor smell. He denies nausea, vomiting, and diarrhea. He reports feeling a little better today now that he is on Vapotherm. RN reports increased need of oxygen slightly this morning. Subjective/Events-last exam Pt reports feeling much better. No complaints. Breathing has improved. Focused Exam Lactate Level 12/19/20 18:34: Lactic Acid Level 1.14 Time of Focused Exam: 16:51 Objective Exam Vital Signs Vital Signs Date Time Temp Pulse Resp B/P (MAP) Pulse Ox O2 Delivery O2 Flow Rate FiO2 12/22/20 18:00 84 23 156/70 (98) 92 Vapotherm 25.00 70.00 12/22/20 16:00 70 12/22/20 12:00 36.7 Capillary Refill : Less Than 3 Seconds General Appearance: No Apparent Distress, Chronically ill, Thin Respiratory: Lungs Clear, No Accessory Muscle Use, Other (on vapotherm) Cardiovascular: Regular Rate, Rhythm, No Murmur Gastrointestinal: Normal Bowel Sounds, Non Tender, Soft Neurologic/Psychiatric: Alert, Oriented x3 Results/Procedures Lab Laboratory Tests 12/22/20 03:24 12/22/20 14:10 Patient resulted labs reviewed. Imaging: Reviewed Imaging Report Assessment/Plan Assessment and Plan Assess & Plan/Chief Complaint Acute on chronic respiratory failure Pneumonia- severe sepsis POA now resolved COPD Continue on Cefepime, DC vanc Currently on Vapotherm Pulm consulted, appreciate recs Continue Steroids COVID PCR negative Anemia History of GI bleed Hold anticoagulation Hgb improved this morning Surgery consulted EGD planned for today pAF HTN HLD Hold anticoagulation Otherwise continue home meds Consult cardiology NIDDMII Hold metformin SSI DVT ppx: SCDs only HELENE MORAN MD Dec 21, 2020 09:15
[2020-12-21] MEDS ORDERED: proPOfol 200 MG/20 ML (DIPRIVAN) VIAL IV ONE (10:17)
[2020-12-21] MEDS ORDERED: LACTATED RINGERS 1,000 ML IV ONE ×2 (10:18→10:45)
[2020-12-21 10:40] VITALS: BP 119/57
[2020-12-21 10:45] VITALS: BP 120/59
[2020-12-21 10:50] VITALS: BP 111/53
--- NOTE | 2020-12-21 11:02 | Anesthesia-General Post-Op ---
MAC Patient Condition Mental Status/LOC: Same as Preop Cardiovascular: Satisfactory Nausea/Vomiting: Absent Respiratory: Satisfactory Pain: Controlled Complications: Absent Post Op Complications Complications None Follow Up Care/Instructions Patient Instructions None needed. Anesthesiology Discharge Order Discharge Order Patient is doing well, no complaints, stable vital signs, no apparent adverse anesthesia problems. No complications reported per nursing. IRA JIMENEZ CRNA Dec 21, 2020 11:02
--- NOTE | 2020-12-21 11:06 | Progress Note-Post Operative ---
Post-Operative Progess Note Surgeon (s)/Aircraft Shipping Checker (s) Surgeon EVENS CARRERO DO Aircraft Shipping Checker: none Pre-Operative Diagnosis Anemia, hx of Duodenal ulcer Post-Operative Diagnosis Duodenal stricture Zenker's Diverticulum mild gastritis Procedure & Operative Findings Date of Procedure 12/21/20 Procedure Performed/Findings EGD Anesthesia Type IV sedation by EXHIBIT ELECTRICIAN Estimated Blood Loss Estimated blood loss (mL): none Specimens/Packing Specimens Removed none EVENS CARRERO DO Dec 21, 2020 11:06
[2020-12-21] MEDS: MELATONIN 3 MG TABLET PO SCH (20:28)
[2020-12-22] MEDS: CEFEPIME 1,000 MG/SWFI 10 ML IV PUSH IV SCH ×8 (00:20→22:57)
[2020-12-22] MEDS: methylPREDNISolone 40 MG/ML (Solu-MEDROL) VIAL IV SCH ×5 (00:20→22:57)
[2020-12-22] MEDS: CATHETER FLUSH 10 ML SYR IV SCH ×4 (00:21→22:58)
[2020-12-22] MEDS: RT-ALBUTEROL INHALER HFA (VENTOLIN HFA) 18 GM IH SCH ×6 (02:27→22:03)
[2020-12-22 03:58] LABS: BASOPHILS % (AUTO) 0 % (0-10); EOSINOPHILS % (AUTO) 0 % (0-10); HEMATOCRIT 24 % (40-54); HEMOGLOBIN 7.7 g/dL (13.3-17.7); LYMPHOCYTES # (AUTO) 0.6 10^3/uL (1.0-4.0); LYMPHOCYTES % (AUTO) 4 % (12-44); MEAN CORPUSCULAR HEMOGLOBIN 28 pg (25-34); MEAN CORPUSCULAR HGB CONC 33 g/dL (32-36); MEAN CORPUSCULAR VOLUME 86 fL (80-99); MEAN PLATELET VOLUME 9.8 fL (9.0-12.2); MONOCYTES # (AUTO) 0.6 10^3/uL (0.0-1.0); MONOCYTES % (AUTO) 5 % (0-12); NEUTROPHILS # (AUTO) 12.2 10^3/uL (1.8-7.8); NEUTROPHILS % (AUTO) 91 % (42-75); PLATELET COUNT 346 10^3/uL (130-400); WHITE BLOOD COUNT 13.5 10^3/uL (4.3-11.0)
[2020-12-22 04:18] LABS: CHLORIDE 100 MMOL/L (98-107); POTASSIUM 4.2 MMOL/L (3.6-5.0); SODIUM 132 MMOL/L (135-145)
[2020-12-22 04:20] LABS: CALCIUM 8.2 MG/DL (8.5-10.1); GLUCOSE 139 MG/DL (70-105)
[2020-12-22 04:22] LABS: CARBON DIOXIDE 23 MMOL/L (21-32)
[2020-12-22 04:24] LABS: CREATININE SERUM 0.73 MG/DL (0.60-1.30); GFR ESTIMATED > 60; PHOSPHORUS 3.5 MG/DL (2.3-4.7)
[2020-12-22 04:25] LABS: BUN/CREATININE RATIO 36
[2020-12-22 04:26] LABS: MAGNESIUM 1.9 MG/DL (1.6-2.4)
[2020-12-22] MEDS: inSUlin ASPART (NovoLOG) 1 UNIT/0.01 ML (CHARGE PER UNIT) SC SCH ×4 (05:00→22:58)
[2020-12-22] MEDS: MAGNESIUM 1 GM/100 ML IVPB 100 ML IV SCH (05:00)
[2020-12-22] MEDS: KCL 20 MEQ TAB (K-DUR) PO SCH ×2 (05:00→09:24)
[2020-12-22] MEDS: POTASSIUM CL 10MEQ/50ML IVPB 50 ML IV SCH (05:01)
[2020-12-22] MEDS ORDERED: FUROSEMIDE 40 MG/4 ML INJ (LASIX) IVP ONE (05:45)
--- NOTE | 2020-12-22 05:50 | Pulmonary Progress Note ---
Subjective Time Seen by a Provider: 05:43 Subjective/Events-last exam S/p EGD yesterday. Sepsis Event Evaluation Height, Weight, BMI Height: 5'7.00" Weight: 140lbs. 0.0oz. 63.711978qx; 21.15 BMI Method:Stated Focused Exam Lactate Level 12/19/20 16:10: Lactic Acid Level 3.68*H 12/19/20 18:34: Lactic Acid Level 1.14 Time of Focused Exam: 16:51 Exam Exam Vital Signs Date Time Temp Pulse Resp B/P (MAP) Pulse Ox O2 Delivery O2 Flow Rate FiO2 12/22/20 05:04 Vapotherm 30.00 60.00 12/22/20 05:00 73 20 144/64 (90) 94 Vapotherm 25.00 60.00 12/22/20 04:31 95 Vapotherm 25.00 60 12/22/20 04:00 68 17 147/65 (92) 91 Vapotherm 25.00 60.00 12/22/20 03:00 37.0 Vapotherm 30.00 60.00 12/22/20 02:27 96 Vapotherm 30.00 60 12/22/20 02:00 70 22 142/65 (90) 95 Vapotherm 25.00 60.00 12/22/20 01:00 74 22 134/63 (86) 64 Vapotherm 25.00 60.00 12/22/20 01:00 70 12/22/20 00:31 95 Vapotherm 25.00 60 12/21/20 23:00 72 27 137/64 (88) 92 Vapotherm 25.00 60.00 12/21/20 22:07 92 Vapotherm 25.00 60 12/21/20 22:00 74 20 133/60 (84) 92 Vapotherm 25.00 60.00 12/21/20 21:00 73 22 137/58 (84) Vapotherm 25.00 60.00 12/21/20 21:00 94 12/21/20 20:00 75 30 136/59 (84) Vapotherm 25.00 60.00 12/21/20 20:00 92 Vapotherm 25.00 60 12/21/20 20:00 95 12/21/20 19:00 75 12/21/20 19:00 74 136/59 (84) 12/21/20 19:00 36.9 Vapotherm 25.00 60.00 12/21/20 18:12 92 Vapotherm 25.00 60 12/21/20 18:00 77 28 131/57 (81) 95 Vapotherm 25.00 60.00 12/21/20 17:00 73 32 131/59 (83) 94 Vapotherm 25.00 60.00 12/21/20 16:00 36.0 12/21/20 16:00 73 18 128/60 (82) 93 Vapotherm 25.00 60.00 12/21/20 16:00 94 Vapotherm 25.00 60 12/21/20 15:00 76 19 120/51 (74) 93 Vapotherm 25.00 60.00 12/21/20 14:40 90 Vapotherm 25.00 60 12/21/20 14:00 85 14 122/58 (79) 94 Vapotherm 25.00 60.00 12/21/20 13:00 74 12/21/20 13:00 73 21 95 Vapotherm 25.00 55.00 12/21/20 12:00 94 Vapotherm 30.00 60 12/21/20 12:00 74 16 136/64 (88) 93 Vapotherm 30.00 55.00 12/21/20 12:00 36.0 12/21/20 11:00 74 23 125/58 (80) 96 Vapotherm 35.00 60.00 12/21/20 10:50 69 18 OxyMask 10 12/21/20 10:45 68 18 96 OxyMask 10 12/21/20 10:40 69 18 96 OxyMask 10 12/21/20 10:00 81 21 121/58 (79) 96 Vapotherm 35.00 60.00 12/21/20 09:00 75 26 123/68 (86) 94 Vapotherm 35.00 60.00 12/21/20 08:29 74 12/21/20 08:00 75 30 91 Vapotherm 35.00 60.00 12/21/20 08:00 94 Vapotherm 25.00 55 12/21/20 07:00 71 18 127/57 (80) 92 Vapotherm 35.00 60.00 12/21/20 07:00 74 12/21/20 06:53 92 Vapotherm 25.00 55 12/21/20 06:00 73 18 140/67 (91) 97 Vapotherm 35.00 60.00 I & O 12/22/20 07:00 Intake Total 940 ml Output Total 675 ml Balance 265 ml Height & Weight Height: 5'7.00" Weight: 140lbs. 0.0oz. 63.374175dd; 21.15 BMI Method:Stated General Appearance: No Apparent Distress, Chronically ill HEENT: PERRL/EOMI, Moist Mucous Membranes Neck: Normal Inspection, Non Tender, Supple Respiratory: No Accessory Muscle Use, Crackles, Decreased Breath Sounds Cardiovascular: Regular Rate, Rhythm, No Murmur Capillary Refill: Less Than 3 Seconds Peripheral Pulses: 2+ Dorsalis Pedis (R), 2+ Left Dors-Pedis (L), 2+ Radial Pulses (R), 2+ Radial Pulses (L) Gastrointestinal: non tender, soft, no organomegaly Extremity: Normal Inspection, Non Tender (cervical, supraclavicular, axillary), No Calf Tenderness, No Pedal Edema Neurologic/Psychiatric: Alert, Oriented x3 Skin: Normal Color, Warm/Dry Lymphatic: No Adenopathy Results Lab Laboratory Tests 12/20/20 13:56 12/21/20 02:55 12/22/20 03:24 Assessment/Plan Assessment/Plan Pneumonia with severe sepsis -COVID negative -Cefepime -Repeat PCT - if increasing will change Cefepime to Zosyn -Give 40mg of lasix and check BNP -Solumedrol -MRSA swab is negative -Vapotherm -- 60% Acute on chronic respiratory failure Severe oxygen dependent COPD - He uses 6 liters of oxygen at home -Start solumedrol 40Q 6 -Start Duonebs metabolic lactic acidosis - improved Afib - hx Eliquis T2DM SSI HTN HLD BPH Continue home meds BRITTANY BARRIOS DO Dec 22, 2020 05:50
--- NOTE | 2020-12-22 08:04 | Diagnostic Imaging Report ---
INDICATION: Pneumonia, sepsis. TECHNIQUE: Single view chest 3:05 AM. CORRELATION STUDY: 12/21/2020 FINDINGS: Extensive, dense areas of consolidation demonstrated within both lung jesus most pronounced in the mid and lower lungs, left slightly greater than right. Overall stable to perhaps slightly more dense and consolidated from prior. Heart size is enlarged. Vasculature somewhat obscured but appear generally stable. Calcification of the aortic arch. IMPRESSION: 1. Extensive dense bilateral pulmonary consolidation. Stable to slightly increased in severity from prior studies and favors multilobe pneumonia. Dictated by: Dictated on workstation # [id number]
--- NOTE | 2020-12-22 08:05 | Progress Note - Surgery ---
KARRI MONTE,MED STUDENT 12/22/20 0805: Subjective Date Seen by a Provider: Dec 22, 2020 Time Seen by a Provider: 06:20 Subjective/Events-last exam Pt seen and examined this morning. States he feels like his breathing is improving. EGD yesterday did not reveal a source of bleeding. Hgb 7.7 this AM, 8.2 yesterday. Reports continued lightheadedness and weakness. Denies abdominal pain, n/v or bloody stools. Hemeoccult was positive yesterday. Review of Systems General: No Chills; Fatigue HEENT: Other (lightheadedness) Pulmonary: Dyspnea, Cough Cardiovascular: No: Chest Pain, Edema Gastrointestinal: No: Nausea, Vomiting, Abdominal Pain Neurological: Weakness Focused Exam Lactate Level 12/19/20 16:10: Lactic Acid Level 3.68*H 12/19/20 18:34: Lactic Acid Level 1.14 Time of Focused Exam: 16:51 Objective Exam Vital Signs Date Time Temp Pulse Resp B/P (MAP) Pulse Ox O2 Delivery O2 Flow Rate FiO2 12/22/20 07:03 88 Vapotherm 30.00 60 12/22/20 07:00 73 12/22/20 06:07 Vapotherm 30.00 60.00 12/22/20 06:00 69 18 145/64 (91) 92 Vapotherm 30.00 60.00 12/22/20 05:04 Vapotherm 30.00 60.00 12/22/20 05:00 73 20 144/64 (90) 94 Vapotherm 25.00 60.00 12/22/20 04:31 95 Vapotherm 25.00 60 12/22/20 04:00 68 17 147/65 (92) 91 Vapotherm 25.00 60.00 12/22/20 03:00 37.0 Vapotherm 30.00 60.00 12/22/20 02:27 96 Vapotherm 30.00 60 12/22/20 02:00 70 22 142/65 (90) 95 Vapotherm 25.00 60.00 12/22/20 01:00 74 22 134/63 (86) 64 Vapotherm 25.00 60.00 12/22/20 01:00 70 12/22/20 00:31 95 Vapotherm 25.00 60 12/21/20 23:00 72 27 137/64 (88) 92 Vapotherm 25.00 60.00 12/21/20 22:07 92 Vapotherm 25.00 60 12/21/20 22:00 74 20 133/60 (84) 92 Vapotherm 25.00 60.00 12/21/20 21:00 73 22 137/58 (84) Vapotherm 25.00 60.00 12/21/20 21:00 94 12/21/20 20:00 75 30 136/59 (84) Vapotherm 25.00 60.00 12/21/20 20:00 92 Vapotherm 25.00 60 12/21/20 20:00 95 12/21/20 19:00 75 12/21/20 19:00 74 136/59 (84) 12/21/20 19:00 36.9 Vapotherm 25.00 60.00 12/21/20 18:12 92 Vapotherm 25.00 60 12/21/20 18:00 77 28 131/57 (81) 95 Vapotherm 25.00 60.00 12/21/20 17:00 73 32 131/59 (83) 94 Vapotherm 25.00 60.00 12/21/20 16:00 36.0 12/21/20 16:00 73 18 128/60 (82) 93 Vapotherm 25.00 60.00 12/21/20 16:00 94 Vapotherm 25.00 60 12/21/20 15:00 76 19 120/51 (74) 93 Vapotherm 25.00 60.00 12/21/20 14:40 90 Vapotherm 25.00 60 12/21/20 14:00 85 14 122/58 (79) 94 Vapotherm 25.00 60.00 12/21/20 13:00 74 12/21/20 13:00 73 21 95 Vapotherm 25.00 55.00 12/21/20 12:00 94 Vapotherm 30.00 60 12/21/20 12:00 74 16 136/64 (88) 93 Vapotherm 30.00 55.00 12/21/20 12:00 36.0 12/21/20 11:00 74 23 125/58 (80) 96 Vapotherm 35.00 60.00 12/21/20 10:50 69 18 OxyMask 10 12/21/20 10:45 68 18 96 OxyMask 10 12/21/20 10:40 69 18 96 OxyMask 10 12/21/20 10:00 81 21 121/58 (79) 96 Vapotherm 35.00 60.00 12/21/20 09:00 75 26 123/68 (86) 94 Vapotherm 35.00 60.00 12/21/20 08:29 74 12/21/20 08:00 75 30 91 Vapotherm 35.00 60.00 12/21/20 08:00 94 Vapotherm 25.00 55 I & O 12/22/20 07:00 Intake Total 1060 ml Output Total 875 ml Balance 185 ml Capillary Refill : Less Than 3 Seconds General Appearance: No Apparent Distress, Chronically ill HEENT: PERRL/EOMI, Moist Mucous Membranes Respiratory: No Accessory Muscle Use, Crackles, Decreased Breath Sounds, Other (on vapotherm) Cardiovascular: Regular Rate, Rhythm, No Murmur Peripheral Pulses: 2+ Dorsalis Pedis (R), 2+ Left Dors-Pedis (L), 2+ Radial Pulses (R), 2+ Radial Pulses (L) Gastrointestinal: non tender, soft; No distended Extremity: Non Tender, No Pedal Edema Neurologic/Psychiatric: Alert, Oriented x3, 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 Skin: Warm/Dry Results Lab Laboratory Tests 12/21/20 10:00: Stool Occult Blood Immunoassay POSITIVEH 12/21/20 11:54: Glucometer 124H 12/21/20 16:35: Glucometer 128H 12/21/20 20:27: Glucometer 169H 12/22/20 03:24: White Blood Count 13.5H, Red Blood Count 2.76L, Hemoglobin 7.7L, Hematocrit 24L, Mean Corpuscular Volume 86, Mean Corpuscular Hemoglobin 28, Mean Corpuscular Hemoglobin Concent 33, Red Cell Distribution Width 15.6H, Platelet Count 346, Mean Platelet Volume 9.8, Immature Granulocyte % (Auto) 1, Neutrophils (%) (Auto) 91H, Lymphocytes (%) (Auto) 4L, Monocytes (%) (Auto) 5, Eosinophils (%) (Auto) 0, Basophils (%) (Auto) 0, Neutrophils # (Auto) 12.2H, Lymphocytes # (Auto) 0.6L, Monocytes # (Auto) 0.6, Eosinophils # (Auto) 0.0, Basophils # (Auto) 0.0, Immature Granulocyte # (Auto) 0.1, Sodium Level 132L, Potassium Level 4.2, Chloride Level 100, Carbon Dioxide Level 23, Anion Gap 9, Blood Urea Nitrogen 26H, Creatinine 0.73, Estimat Glomerular Filtration Rate > 60, BUN/Creatinine Ratio 36, Glucose Level 139H, Calcium Level 8.2L, Phosphorus Level 3.5, Magnesium Level 1.9, B-Type Natriuretic Peptide 606.5H, Procalcitonin 0.14H Microbiology 12/20/20 MRSA Screen - Final, Complete MRSA not isolated 12/19/20 Blood Culture - Preliminary, Resulted No growth Assessment/Plan Assessment/Plan Assessment/Plan GI Bleed Anemia - 7.7 this AM, 8.2 yesterday Multilobe pneumonia Leukocytosis, WBC up to 13.5 this AM from 7.9 Mildy elevated LFTs Hyperkalemia - resolved Lactic Acidosis -resolved Hypoxia - better on O2 COVID negative Hemeoccult positive EGD showed no source of bleeding Consider colonoscopy to evaluate further Trend H/H Hold anticoagulation Continue Abx ALVERTO ESPARZA DO 12/22/20 0946: Subjective Time Seen by a Provider: 09:36 Subjective/Events-last exam Pt seen and examined, no complaints. Denies abdominal pain and BM was brown, but hemoccult positive. Review of Systems General: No Chills; Fatigue Pulmonary: Dyspnea, Cough Cardiovascular: No: Chest Pain, Edema Gastrointestinal: No: Nausea, Vomiting, Abdominal Pain Objective Exam General Appearance: No Apparent Distress, Chronically ill HEENT: Moist Mucous Membranes Respiratory: No Accessory Muscle Use, Crackles, Decreased Breath Sounds Cardiovascular: Regular Rate, Rhythm, No Murmur Gastrointestinal: non tender, soft; No distended Assessment/Plan Assessment/Plan Assessment/Plan GI Bleed Anemia - 7.7 this AM, 8.2 yesterday Multilobe pneumonia Leukocytosis, WBC up to 13.5 this AM from 7.9 Mildy elevated LFTs Hyperkalemia - resolved Lactic Acidosis -resolved Hypoxia - better on O2 COVID negative Hemeoccult positive, EGD showed no source of bleeding, pt had colonoscopy 1-2 yrs ago; not sure the benefit of repeating. His Hg has basically been stable if you account for the dehydration. Trend H/H, Hold anticoagulation, Continue Abx. Will continue to follow and coordinate with IM. Supervisory-Addendum Brief Verification & Attestation Participated in pt care: history, MDM, physical Personally performed: exam, history, MDM Care discussed with: Medical Student Procedures: n/a Verification and Attestation of Medical Student E/M Service A medical student performed and documented this service. I then reviewed and verified all information documented by the medical student and made modifications to such information, when appropriate. I personally performed a physical exam, medical decision making and then discussed any differences between the notes and made revisions as necessary to create one note. Alverto Esparza , 12/22/20 , 09:46 KARRI MONTE,MED STUDENT Dec 22, 2020 08:05 ALVERTO ESPARZA DO Dec 22, 2020 09:46
[2020-12-22] MEDS: FUROSEMIDE 40 MG/4 ML INJ (LASIX) IVP SCH (08:23)
[2020-12-22] MEDS ORDERED: NS IV 500 ML 500 ML IV SCH ×2 (08:45)
--- NOTE | 2020-12-22 08:49 | Progress Note - Hospitalist ---
Subjective HPI/CC On Admission Date Seen by Provider: Dec 22, 2020 Time Seen by Provider: 08:40 Pt is an 85yoCM with a PMH pAF, DM, COPD on 19/05 6lpm oxygen, HTD, HLD who presented to the ER due to SOB. He states he has had a cough for a few days but yesterday developed SOB and flu like symptoms. He denies any sick contacts. He denies loss of taste nor smell. He denies nausea, vomiting, and diarrhea. He reports feeling a little better today now that he is on Vapotherm. RN reports increased need of oxygen slightly this morning. Subjective/Events-last exam Pt reports feeling well today. Has had increased oxygen needs on Vapotherm this morning but does not feel worse per patient. Focused Exam Lactate Level 12/19/20 16:10: Lactic Acid Level 3.68*H 12/19/20 18:34: Lactic Acid Level 1.14 Time of Focused Exam: 16:51 Objective Exam Vital Signs Vital Signs Date Time Temp Pulse Resp B/P (MAP) Pulse Ox O2 Delivery O2 Flow Rate FiO2 12/22/20 08:00 67 28 141/65 (90) 98 Vapotherm 35.00 85.00 12/22/20 08:00 85 12/22/20 03:00 37.0 Capillary Refill : Less Than 3 Seconds General Appearance: No Apparent Distress, WD/WN Respiratory: No Accessory Muscle Use, Decreased Breath Sounds; No Rhonci; Other (On vapotherm) Cardiovascular: Regular Rate, Rhythm, No Murmur Gastrointestinal: Normal Bowel Sounds, Non Tender, Soft Neurologic/Psychiatric: Alert, Oriented x3 Results/Procedures Lab Laboratory Tests 12/22/20 03:24 Patient resulted labs reviewed. Imaging: Reviewed Imaging Report Assessment/Plan Assessment and Plan Assess & Plan/Chief Complaint Acute on chronic respiratory failure Pneumonia COPD Continue on Cefepime Currently on Vapotherm Pulm consulted, appreciate recs Continue Steroids COVID PCR negative Anemia History of GI bleed Hold anticoagulation Hgb 7.7 Surgery consulted EGD with mild gastritis and zenker's diverticulum FOBT +, will need colonoscopy at some point pAF HTN HLD Hold anticoagulation Otherwise continue home meds Consult cardiology NIDDMII Hold metformin SSI DVT ppx: SCDs only HELENE MORAN MD Dec 22, 2020 08:49
[2020-12-22] MEDS: DOCUSATE SODIUM 100 MG (COLACE) CAP PO SCH ×2 (09:24→20:36)
[2020-12-22] MEDS: guaiFENesin (MUCINEX) 600 MG TAB PO SCH ×2 (09:24→20:36)
[2020-12-22] MEDS: PANTOPRAZOLE 40 MG (PROTONIX) VIAL IV SCH ×2 (09:24→20:36)
[2020-12-22 10:02] VITALS: BP 129/57
[2020-12-22 10:15] VITALS: BP 120/50
--- NOTE | 2020-12-22 10:45 | Cardiology Progress Note ---
Subjective Date Seen by Provider: Dec 22, 2020 Time Seen by Provider: 10:43 Subjective/Events-last exam Patient is laying down in bed, feeling better, looks better but he is still requiring a higher doses of oxygen, currently on Vapotherm 80 percent Review of Systems General: No Chills, No Night Sweats; Fatigue; No Malaise, No Appetite, No Other HEENT: No Head Aches, No Visual Changes, No Eye Pain, No Ear Pain, No Dysphasia, No Sinus Congestion, No Post Nasal Drip, No Sore Throat, No Other Pulmonary: Dyspnea; No Cough, No Pleuritic Chest Pain, No Other Cardiovascular: No: Chest Pain, Palpitations, Orthopnea, Paroxysmal Noc. Dyspnea, Edema, Lt Headedness, Other Focused Exam Lactate Level 12/19/20 16:10: Lactic Acid Level 3.68*H 12/19/20 18:34: Lactic Acid Level 1.14 Time of Focused Exam: 16:51 Objective-Cardiology Exam Last Set of Vital Signs Vital Signs 12/22/20 12/22/20 10:15 10:32 Temp 36.5 Pulse 72 Resp 24 B/P (MAP) 120/50 Pulse Ox 93 O2 Delivery Vapotherm O2 Flow Rate 25.00 70.00 FiO2 70 Capillary Refill : Less Than 3 Seconds I&O Intake and Output 12/21/20 23:59 Intake Total 920 ml Output Total 1050 ml Balance -130 ml Intake Oral 620 ml IV Total 300 ml Output Urine Total 1050 ml # Bowel Movements 1 General: Alert, Oriented X3, Cooperative HEENT: Atraumatic, PERRLA Neck: Supple, No JVD, No Thyromegaly Lungs: Clear to Auscultation, Normal Air Movement Heart: Regular Rate, Normal S1, Normal S2, No Murmurs Abdomen: Normal Bowel Sounds, Soft, No Tenderness, No Hepatosplenomegaly, No Masses Extremities: No Clubbing, No Cyanosis, No Edema, Normal Pulses, No Tenderness/Swelling Skin: No Rashes, No Breakdown, No Significant Lesion Neuro: Normal Gait, Normal Speech, Strength at 5/5 X4 Ext, Normal Tone, Sensation Intact Psych/Mental Status: Mental Status NL, Mood NL Results Lab Laboratory Tests 12/22/20 03:24 A/P-Cardiology Admission Diagnosis Acute respiratory failure Pneumonia Anemia Paroxysmal atrial fibrillation Assessment/Plan Acute respiratory failure, pneumonia, maintained on Vapotherm, managed by primary care team, reporting some improvement. Anemia, status post transfusion one packed RBCs, history of GI bleed and hospitalized in October 2017, had an EGD which showed Zenker diverticulum and gastritis, possible colonoscopy, still have some drop in his hemoglobin, I will give him an additional unit of packed RBCs. Maintained on Lasix. Paroxysmal atrial fibrillation/flutter, status post in August 2020 electrical cardioversion, currently in sinus rhythm, doing well and tolerating medication well. 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 Patient had initial workup at hospital in [place]. MRI of the head showed subacute infarct, patient is maintained on Eliquis. Continue current medication monitor. History of syncope, patient had tilt table test which revealed severe dizziness and hypotension back in February 2013. Reports improvement, no further episodes of syncope after increasing salt and fluid intake. Hypertension, monitor blood pressure Hyperlipidemia, monitor lipids Diabetes mellitus, followed and managed by Dr. Howe, seen during the hospitalization with Dr. Bedoya Bilateral moderate carotid stenosis, 40-59 percent per most recent carotid duplex done December 2019, continue to monitor. Dysphagia, Zenker diverticulum, status post Zenker diverticulum surgery done by Dr. Estrada. CRISS FOSTER MD Dec 22, 2020 10:45 am
[2020-12-22 12:00] VITALS: BP 133/50
[2020-12-22 14:20] LABS: HEMOGLOBIN 9.4 g/dL (13.3-17.7)
--- NOTE | 2020-12-22 16:55 | Physician Query Clarification ---
"Physician Query-General Query to Physician: The medical record reflects the following clinical scenario: History/Risk factors: Severe Chronic illnesses, Pneumonia Clinical Findings: Admission VS/Labs P 89, RR 24 , SpO2 91% on 5L increased to 8L, WBC 12.4, LA 3.68 Treatment:ER Treatment: LR 2L, Vancomycin, Cefepime, ICU, Question: Do you agree with the impression of Severe Sepsis per Kelsi Deshpande and Dr. Troy Rocha? If you agree, please document in Progress Notes or Discharge Summary. 1. Yes; will document Severe Sepsis due to Pneumonia Present on Admission in the Progress Notes 2. No; will continue to document Pneumonia in the Progress Notes 3. Other; will document explanation of clinical findings 4. Clinically undetermined; no explanation for clinical findings Please remember a lack of response to the above will prompt a phone page by CDI/coding staff. In responding to this query, please exercise your independent professional judgment. The purpose of this communication is to more accurately reflect the complexity of your patients condition. The fact that a question is asked does not imply that any particular answer is desired or expected. Thank you for timely response to this clarification. Promise Esposito, MSN, RN RN Specialist-Clinical Doc Improvement CD -Health Info Mgmt Operations [address] [facility] t: [phone] | f: [phone] If you are unable to reach me at my extension, I may be working from home. Please contact me at [phone] PHYSICIAN RESPONSE: Based on the clinical findings in the record, please respond to the query above on this document as an addendum. Physician Response: Physician Response 1 If you have questions please contact: Pin Worker: Ext: Thank you for your time and cooperation. Clinical Mulling Machine Operator/Pin Worker This is a permanent part of the medical record* PROMISE ESPOSITO Dec 22, 2020 16:55 HELENE MORAN MD Dec 22, 2020 18:17"
[2020-12-22] MEDS: MELATONIN 3 MG TABLET PO SCH (20:36)
--- NOTE | 2020-12-22 22:53 | OPERATIVE REPORT ---
DATE OF SERVICE: 12/21/2020 PREOPERATIVE DIAGNOSES: Anemia, gastrointestinal bleed. POSTOPERATIVE DIAGNOSES: Anemia, gastrointestinal bleed, Zenker's diverticulum, mild gastritis. PROCEDURE: EGD with biopsy. SURGEON: Alverto Esparza DO ENGINE DISPATCHER: None. ANESTHESIA: IV sedation by the SUPERVISORY CBP OFFICER. SPECIMENS: None. BLOOD LOSS: None. FLUIDS: Per anesthesia. POSTOPERATIVE CONDITION: Stable. INDICATION FOR PROCEDURE: The patient is an 85-year-old male who had anemia with possible GI bleed, needed an EGD for workup. FINDINGS: The patient had Zenker's diverticulum, very mild gastritis, questionable duodenal stricture. No other obvious pathology. PROCEDURE NOTE: After informed consent was obtained, the patient was brought to the endoscopy suite, placed in bed in left lateral decubitus position. He was administered IV sedation by the SUPERVISORY CBP OFFICER who then monitored his vitals the entire time, heart rate, blood pressure and pulse ox and the scope was inserted down the mouth initially and encountered the Zenker's diverticulum and right into it and I could see a small staple at the base looked like this was a failed closure because it was a large pouch. We actually found a little bit of fluid in it, able to finally get past this and into the esophagus down the esophagus into the stomach, pushed in the duodenum. Duodenum looked like it had a little bit of a stricture, able to get pass this, took a picture and then pulled back, took a picture of the stricture, pulled into the stomach, took a picture of the antrum and then retroflexed, did not see any ulcers. Did have some small gastric polyps, but no obvious source of bleeding. Pulled the scope into the GE junction, looked okay, took a picture of this and then pulled the scope up the esophagus and out the mouth. The patient had also suctioned out all the air in the stomach. The patient tolerated the procedure, recovered in endoscopy suite. Job ID: [id number] DocumentID: [id number] Dictated Date: 12/22/2020 17:22:15 Csr Date: 12/22/2020 22:52:16 Dictated By: ALVERTO ESPARZA DO
[2020-12-23] MEDS: RT-ALBUTEROL INHALER HFA (VENTOLIN HFA) 18 GM IH SCH ×6 (01:31→21:57)
[2020-12-23 03:06] LABS: BASOPHILS % (AUTO) 0 % (0-10); EOSINOPHILS % (AUTO) 0 % (0-10); HEMATOCRIT 27 % (40-54); HEMOGLOBIN 8.8 g/dL (13.3-17.7); LYMPHOCYTES # (AUTO) 0.4 10^3/uL (1.0-4.0); LYMPHOCYTES % (AUTO) 3 % (12-44); MEAN CORPUSCULAR HEMOGLOBIN 28 pg (25-34); MEAN CORPUSCULAR HGB CONC 33 g/dL (32-36); MEAN CORPUSCULAR VOLUME 85 fL (80-99); MEAN PLATELET VOLUME 9.8 fL (9.0-12.2); MONOCYTES # (AUTO) 0.4 10^3/uL (0.0-1.0); MONOCYTES % (AUTO) 3 % (0-12); NEUTROPHILS # (AUTO) 11.5 10^3/uL (1.8-7.8); NEUTROPHILS % (AUTO) 93 % (42-75); PLATELET COUNT 341 10^3/uL (130-400); WHITE BLOOD COUNT 12.4 10^3/uL (4.3-11.0)
[2020-12-23 03:19] LABS: CHLORIDE 97 MMOL/L (98-107); POTASSIUM 4.2 MMOL/L (3.6-5.0); SODIUM 133 MMOL/L (135-145)
[2020-12-23 03:20] LABS: CALCIUM 8.2 MG/DL (8.5-10.1)
[2020-12-23 03:21] LABS: GLUCOSE 127 MG/DL (70-105)
[2020-12-23 03:23] LABS: CARBON DIOXIDE 26 MMOL/L (21-32)
[2020-12-23 03:25] LABS: CREATININE SERUM 0.71 MG/DL (0.60-1.30); GFR ESTIMATED > 60; PHOSPHORUS 3.1 MG/DL (2.3-4.7)
[2020-12-23 03:26] LABS: BUN/CREATININE RATIO 39
[2020-12-23 03:27] LABS: MAGNESIUM 1.9 MG/DL (1.6-2.4)
[2020-12-23] MEDS: ACETAMINOPHEN 325 MG TABLET PO PRN ×2 (03:31→23:14)
[2020-12-23] MEDS: POTASSIUM CL 10MEQ/50ML IVPB 50 ML IV SCH (05:25)
[2020-12-23] MEDS: KCL 20 MEQ TAB (K-DUR) PO SCH ×2 (05:25→08:54)
[2020-12-23] MEDS: MAGNESIUM 1 GM/100 ML IVPB 100 ML IV SCH (05:25)
[2020-12-23] MEDS: inSUlin ASPART (NovoLOG) 1 UNIT/0.01 ML (CHARGE PER UNIT) SC SCH ×4 (05:25→20:08)
[2020-12-23] MEDS: methylPREDNISolone 40 MG/ML (Solu-MEDROL) VIAL IV SCH (06:19)
[2020-12-23] MEDS: CEFEPIME 1,000 MG/SWFI 10 ML IV PUSH IV SCH ×6 (06:20→21:45)
[2020-12-23] MEDS: CATHETER FLUSH 10 ML SYR IV SCH ×3 (06:20→21:45)
--- NOTE | 2020-12-23 08:33 | Progress Note - Surgery ---
JAYDEN BUCK MED STUDENT 12/23/20 0833: Subjective Date Seen by a Provider: Dec 23, 2020 Time Seen by a Provider: 08:26 Subjective/Events-last exam Pt awake and in bed upon entry. Pt states he is doing well and notes better breathing. Pt does c/o black sputum production. No BM today but passing a lot of flatus. No acute events over night. Review of Systems General: No Chills, No Fatigue HEENT: No Head Aches, No Dysphasia Pulmonary: Dyspnea, Cough (black sputum) Cardiovascular: No: Chest Pain, Palpitations Gastrointestinal: Constipation; No: Nausea, Vomiting Genitourinary: No Dysuria, No Hematuria Musculoskeletal: No: back pain, leg pain Neurological: No: Weakness, Numbness Focused Exam Time of Focused Exam: 16:51 Objective Exam Vital Signs Date Time Temp Pulse Resp B/P (MAP) Pulse Ox O2 Delivery O2 Flow Rate FiO2 12/23/20 08:00 78 38 146/65 (92) 93 Vapotherm 25.00 70.00 12/23/20 08:00 94 Vapotherm 25.00 70 12/23/20 07:32 91 Vapotherm 25.00 70 12/23/20 07:24 36.4 12/23/20 07:00 64 12/23/20 07:00 64 17 132/59 (83) 96 Vapotherm 25.00 70.00 12/23/20 06:23 Vapotherm 25.00 70.00 12/23/20 06:00 69 20 147/67 (93) 96 30.00 70.00 12/23/20 05:00 67 18 149/69 (95) 97 Vapotherm 30.00 70.00 12/23/20 04:00 36.6 Vapotherm 30.00 70.00 12/23/20 04:00 66 21 155/71 (99) 96 Vapotherm 30.00 70.00 12/23/20 04:00 92 Vapotherm 30.00 70 12/23/20 03:00 68 22 149/68 (95) 92 Vapotherm 30.00 70.00 12/23/20 02:00 68 25 145/65 (91) 91 Vapotherm 30.00 70.00 12/23/20 01:31 91 Vapotherm 25.00 70 12/23/20 01:00 67 2/27/21 01:00 69 29 146/65 (92) 96 Vapotherm 30.00 70.00 12/23/20 00:00 72 28 136/61 (86) 90 Vapotherm 30.00 70.00 12/22/20 23:36 95 Vapotherm 30.00 70 12/22/20 23:00 36.4 Vapotherm 30.00 70.00 12/22/20 23:00 68 30 139/63 (88) 93 Vapotherm 30.00 70.00 12/22/20 22:03 92 Vapotherm 25.00 70 12/22/20 22:00 71 31 141/63 (89) 93 Vapotherm 25.00 70.00 12/22/20 21:00 81 21 151/66 (94) 90 Vapotherm 25.00 70.00 12/22/20 20:00 75 27 130/60 (83) 93 Vapotherm 25.00 70.00 12/22/20 20:00 94 Vapotherm 30.00 70 12/22/20 19:00 77 30 140/61 (87) 95 Vapotherm 25.00 70.00 12/22/20 19:00 36.8 93 Vapotherm 30.00 70.00 12/22/20 19:00 76 12/22/20 18:37 91 Vapotherm 30.00 70 12/22/20 18:00 84 23 156/70 (98) 92 Vapotherm 25.00 70.00 12/22/20 17:00 73 23 150/68 (95) 91 Vapotherm 25.00 70.00 12/22/20 16:00 97 Vapotherm 25.00 70 12/22/20 16:00 73 31 145/66 (92) 91 Vapotherm 25.00 70.00 12/22/20 15:00 73 24 139/61 (87) 90 Vapotherm 25.00 70.00 12/22/20 14:10 93 Vapotherm 30.00 65 12/22/20 14:00 70 29 125/56 (79) 91 Vapotherm 25.00 70.00 12/22/20 13:00 75 14 123/59 (80) 93 Vapotherm 25.00 70.00 12/22/20 12:55 72 12/22/20 12:00 97 Vapotherm 25.00 70 12/22/20 12:00 36.7 75 24 133/50 97 Vapotherm 25.00 70 12/22/20 12:00 36.7 75 22 133/50 (77) 97 Vapotherm 25.00 70.00 12/22/20 11:00 71 19 119/54 (75) 95 Vapotherm 25.00 70.00 12/22/20 10:32 Vapotherm 25.00 70.00 12/22/20 10:15 36.5 72 24 120/50 93 Vapotherm 25.00 70 12/22/20 10:12 88 Vapotherm 30.00 70 12/22/20 10:02 36.1 72 25 129/57 95 Vapotherm 25.00 75 12/22/20 10:00 71 24 129/57 (81) 96 Vapotherm 25.00 75.00 12/22/20 09:00 73 27 131/56 (81) 96 Vapotherm 35.00 85.00 I & O 12/23/20 07:00 Intake Total 1040 ml Output Total 2300 ml Balance -1260 ml Capillary Refill : Less Than 3 Seconds General Appearance: No Apparent Distress, Chronically ill, Thin HEENT: PERRL/EOMI, Moist Mucous Membranes Neck: Normal Inspection, Non Tender Respiratory: Chest Non Tender, No Accessory Muscle Use, Rhonci (bilateral), Other (on vapotherm, black sputum production) Cardiovascular: Regular Rate, Rhythm, No Edema, No Murmur Peripheral Pulses: 2+ Dorsalis Pedis (R), 2+ Left Dors-Pedis (L), 2+ Radial Pulses (R), 2+ Radial Pulses (L) Gastrointestinal: normal bowel sounds, non tender, soft; No distended Extremity: Non Tender, No Calf Tenderness, No Pedal Edema Neurologic/Psychiatric: Alert, Oriented x3, No Motor/Sensory Deficits, 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 Skin: Normal Color, Warm/Dry Lymphatic: No Adenopathy (cervical, supraclavicular, axillary) Results Lab Laboratory Tests 12/22/20 11:47: Glucometer 195H 12/22/20 14:10: Hemoglobin 9.4#L, Hematocrit 29L 12/22/20 16:43: Glucometer 104 12/22/20 20:32: Glucometer 250H 12/22/20 20:34: Glucometer 253H 12/22/20 22:55: Glucometer 235H 12/23/20 02:23: White Blood Count 12.4H, Red Blood Count 3.18L, Hemoglobin 8.8L, Hematocrit 27L, Mean Corpuscular Volume 85, Mean Corpuscular Hemoglobin 28, Mean Corpuscular Hemoglobin Concent 33, Red Cell Distribution Width 15.3H, Platelet Count 341, Mean Platelet Volume 9.8, Immature Granulocyte % (Auto) 1, Neutrophils (%) (Auto) 93H, Lymphocytes (%) (Auto) 3L, Monocytes (%) (Auto) 3, Eosinophils (%) (Auto) 0, Basophils (%) (Auto) 0, Neutrophils # (Auto) 11.5H, Lymphocytes # (Auto) 0.4L, Monocytes # (Auto) 0.4, Eosinophils # (Auto) 0.0, Basophils # (Auto) 0.0, Immature Granulocyte # (Auto) 0.1, Sodium Level 133L, Potassium Level 4.2, Chloride Level 97L, Carbon Dioxide Level 26, Anion Gap 10, Blood Urea Nitrogen 28H, Creatinine 0.71, Estimat Glomerular Filtration Rate > 60, BUN/Creatinine Ratio 39, Glucose Level 127H, Calcium Level 8.2L, Phosphorus Level 3.1, Magnesium Level 1.9 Microbiology 12/20/20 MRSA Screen - Final, Complete MRSA not isolated 12/19/20 Blood Culture - Preliminary, Resulted No growth Assessment/Plan Assessment/Plan Assessment/Plan GI Bleed Anemia - 8.8 this AM, 9.4 yesterday post RBC transfusion Multilobe pneumonia Leukocytosis, WBC up to 12.4 this AM from 13.5 yesterday Mildy elevated LFTs Hyperkalemia - resolved Lactic Acidosis -resolved Hypoxia - better on O2 COVID negative Trend H/H, Hold anticoagulation, Continue Abx. Will continue to follow and coordinate with ALVERTO MONROE DO 12/23/20 1550: Subjective Time Seen by a Provider: 10:11 Subjective/Events-last exam Pt seen and examined, was just about to walk with PT. Pt denies abdominal pain and states he is doing better. Review of Systems General: No Chills; Fatigue HEENT: No Head Aches Pulmonary: Dyspnea, Cough (black sputum) Cardiovascular: No: Chest Pain, Palpitations Gastrointestinal: Constipation; No: Nausea, Vomiting Genitourinary: No Dysuria, No Hematuria Objective Exam General Appearance: No Apparent Distress, Chronically ill HEENT: Moist Mucous Membranes Respiratory: Chest Non Tender Cardiovascular: Regular Rate, Rhythm, No Murmur Gastrointestinal: normal bowel sounds, non tender, soft; No distended Extremity: No Calf Tenderness, No Pedal Edema Neurologic/Psychiatric: Alert, Oriented x3 Assessment/Plan Assessment/Plan Assessment/Plan GI Bleed - may just be mild gastritis causing some blood loss Anemia - 8.8 this AM, 9.4 yesterday post RBC transfusion Multilobe pneumonia Leukocytosis, slightly improved down to 12.4 from 13.5 yesterday Mildy elevated LFTs Hyperkalemia - resolved Lactic Acidosis -resolved Hypoxia - better on O2 COVID negative Trend H/H, Hold anticoagulation, Continue Abx. Will continue to follow and coordinate with IM. Supervisory-Addendum Brief Verification & Attestation Participated in pt care: history, MDM, physical Personally performed: exam, history, MDM Care discussed with: Medical Student Procedures: n/a Verification and Attestation of Medical Student E/M Service A medical student performed and documented this service. I then reviewed and verified all information documented by the medical student and made modifications to such information, when appropriate. I personally performed a physical exam, medical decision making and then discussed any differences between the notes and made revisions as necessary to create one note. Alverto Esparza , 12/23/20 , 15:50 JAYDEN BUCK MED STUDENT Dec 23, 2020 08:33 ALVERTO ESPARZA DO Dec 23, 2020 15:50
--- NOTE | 2020-12-23 08:38 | Diagnostic Imaging Report ---
Indication: Dyspnea, follow-up pneumonia. Comparison: 12/22/2020. Discussion: Single portable upright view of the chest was obtained. Mild cardiomegaly stable. Severe pulmonary infiltrates are minimally decreased. No pleural fluid or pneumothorax. No osseous abnormality. Impression: 1. Severe bilateral pulmonary infiltrates, minimally decreased. Cardiomegaly is stable. Dictated by: Dictated on workstation # [id number]
[2020-12-23] MEDS: guaiFENesin (MUCINEX) 600 MG TAB PO SCH ×2 (08:54→20:01)
[2020-12-23] MEDS: FUROSEMIDE 40 MG/4 ML INJ (LASIX) IVP SCH (08:54)
[2020-12-23] MEDS: PANTOPRAZOLE 40 MG (PROTONIX) VIAL IV SCH ×2 (08:54→20:00)
[2020-12-23] MEDS: DOCUSATE SODIUM 100 MG (COLACE) CAP PO SCH ×2 (08:54→20:00)
--- NOTE | 2020-12-23 09:23 | Progress Note - Hospitalist ---
Subjective HPI/CC On Admission Date Seen by Provider: Dec 23, 2020 Time Seen by Provider: 09:19 Pt is an 85yoCM with a PMH pAF, DM, COPD on 19/05 6lpm oxygen, HTD, HLD who presented to the ER due to SOB. He states he has had a cough for a few days but yesterday developed SOB and flu like symptoms. He denies any sick contacts. He denies loss of taste nor smell. He denies nausea, vomiting, and diarrhea. He reports feeling a little better today now that he is on Vapotherm. RN reports increased need of oxygen slightly this morning. Subjective/Events-last exam Pt reports feeling better today. No new complaints. States breathing is better. RN reports oxygen is slowly being titrated down. Encouraged patient in OOB activity but he declines as he feels too weak. He reports he has been doing in bed exercises though. Focused Exam Time of Focused Exam: 16:51 Objective Exam Vital Signs Vital Signs Date Time Temp Pulse Resp B/P (MAP) Pulse Ox O2 Delivery O2 Flow Rate FiO2 12/23/20 08:00 78 38 146/65 (92) 93 Vapotherm 25.00 70.00 12/23/20 08:00 70 12/23/20 07:24 36.4 Capillary Refill : Less Than 3 Seconds General Appearance: No Apparent Distress, Chronically ill, Thin Respiratory: No Accessory Muscle Use, Decreased Breath Sounds; No Rhonci; Other (on Vapotherm) Cardiovascular: Regular Rate, Rhythm, No Murmur Neurologic/Psychiatric: Alert, Oriented x3 Results/Procedures Lab Laboratory Tests 12/22/20 14:10 12/23/20 02:23 Patient resulted labs reviewed. Imaging: Reviewed Imaging Report Assessment/Plan Assessment and Plan Assess & Plan/Chief Complaint Acute on chronic respiratory failure Pneumonia- severe sepsis POA now resolved COPD Continue on Cefepime Currently on Vapotherm, wean as able Pulm consulted, appreciate recs Continue Steroids, transition to oral COVID PCR negative Anemia History of GI bleed Hold anticoagulation Hgb stable, received a second unit pRBCs yesterday Surgery consulted FOBT +, may need colonoscopy at some point if he continues to drop his H&H pAF HTN HLD Hold anticoagulation BP well controlled, Consult cardiology NIDDMII Hold metformin SSI DVT ppx: SCDs only HELENE MORAN MD Dec 23, 2020 09:23
[2020-12-23] MEDS ORDERED: predniSONE 20 MG TAB PO ONE (09:30)
--- NOTE | 2020-12-23 09:48 | Cardiology Progress Note ---
Subjective Date Seen by Provider: Dec 23, 2020 Time Seen by Provider: 09:46 Subjective/Events-last exam Patient is laying down in bed, in good spirits, still having shortness of breath Review of Systems General: No Chills, No Night Sweats; Fatigue, Malaise; No Appetite, No Other HEENT: No Head Aches, No Visual Changes, No Eye Pain, No Ear Pain, No Dysphasia, No Sinus Congestion, No Post Nasal Drip, No Sore Throat, No Other Pulmonary: Dyspnea; No Cough, No Pleuritic Chest Pain, No Other Cardiovascular: No: Chest Pain, Palpitations, Orthopnea, Paroxysmal Noc. Dyspnea, Edema, Lt Headedness, Other Focused Exam Time of Focused Exam: 16:51 Objective-Cardiology Exam Last Set of Vital Signs Vital Signs 12/23/20 12/23/20 12/23/20 07:24 08:00 09:00 Temp 36.4 Pulse 74 Resp 29 B/P (MAP) 129/54 (79) Pulse Ox 97 O2 Delivery Vapotherm O2 Flow Rate 25.00 70.00 FiO2 70 Capillary Refill : Less Than 3 Seconds I&O Intake and Output 12/23/20 00:00 Intake Total 1160 ml Output Total 2375 ml Balance -1215 ml Intake Oral 1060 ml Other 100 ml Output Urine Total 2375 ml General: Alert, Oriented X3, Cooperative HEENT: Atraumatic, PERRLA Neck: Supple, No JVD, No Thyromegaly Lungs: Normal Air Movement, Other (bilateral rhonchi) Heart: Normal S1, Normal S2, No Murmurs, Other (and irregular) Abdomen: Normal Bowel Sounds, Soft, No Tenderness, No Hepatosplenomegaly, No Masses Extremities: No Clubbing, No Cyanosis, No Edema, Normal Pulses, No Tenderness/Swelling Skin: No Rashes, No Breakdown, No Significant Lesion Neuro: Normal Gait, Normal Speech, Strength at 5/5 X4 Ext, Normal Tone, Sensation Intact Psych/Mental Status: Mental Status NL, Mood NL Results Lab Laboratory Tests 12/22/20 14:10 12/23/20 02:23 A/P-Cardiology Admission Diagnosis Acute respiratory failure Pneumonia Anemia Paroxysmal atrial fibrillation Assessment/Plan Acute respiratory failure, pneumonia, maintained on Vapotherm, still requiring high oxygen flow, reporting improvement, chest x-ray still showing significant infiltrate. 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 Patient had initial workup at hospital in [place]. MRI of the head showed subacute infarct, patient is maintained on Eliquis, hold all anticoagulation at this point due to the GI bleed History of syncope, patient had tilt table test which revealed severe dizziness and hypotension back in February 2013. Reports improvement, no further episodes of syncope after increasing salt and fluid intake. Hypertension, monitor blood pressure Hyperlipidemia, monitor lipids Diabetes mellitus, followed and managed by Dr. Howe, seen during the hospitalization with Dr. Bedoya Bilateral moderate carotid stenosis, 40-59 percent per most recent carotid duplex done December 2019, continue to monitor. Dysphagia, Zenker diverticulum, status post Zenker diverticulum surgery done by Dr. Estrada. CRISS FOSTER MD Dec 23, 2020 09:48
--- NOTE | 2020-12-23 10:21 | Physical Therapy Evaluation ---
PT Evaluation-General Medical Diagnosis Admission Date Dec 19, 2020 at 17:30 Medical Diagnosis: pneumonia/sepsis/respiratory failure/hypoxia Onset Date: Dec 19, 2020 Therapy Diagnosis Therapy Diagnosis: debility/weakness Height/Weight Height (Feet): 5 Height (Inches): 7.00 Weight (Pounds): 140 Weight (Ounces): 0.0 Precautions Precautions/Isolations: Fall Prevention, Standard Precautions Referral Physician: Navya Reason for Referral: Evaluation/Treatment Medical History Pertinent Medical History: Atrial Fib, Arthritis, CAD, COPD, DM, GERD, HTN Current History EMS secondary to chills, flu like symptoms, SOA Reviewed History: Yes Social History Home: Single Level Current Living Status: Spouse Entry Into Home: Stairs With Railing PT Steps Into Home: 3 Prior Prior Level of Function SCALE: Activities may be completed with or without assistive devices. 8-Ayyjzyekea-gkgcbop completes the activity by him/herself with no assistance from a helper. 5-Set-up or Clean-up Assistance-helper sets up or cleans up; patient completes activity. Mccrory assists only prior to or following the activity. 4-Supervision or Touching Assistance-helper provides verbal cues and/or touching/steadying and/or contact guard assistance as patient completes activity. Assistance may be provided throughout the activity or intermittently. 3-Partial/Moderate Assistance-helper does LESS THAN HALF the effort. Mccrory lifts, holds or supports trunk or limbs, but provides less than half the effort. 2-Substantial/Maximal Assistance-helper does MORE THAN HALF the effort. Mccrory lifts or holds trunk or limbs and provides more than half the effort. 6-Vhedwmnje-fcaaid does ALL the effort. Patient does none of the effort to complete the activity. Or, the assistance of 2 or more helpers is required for the patient to complete the activity. If activity was not attempted, code reason: 7-Patient Refused. 9-Not Applicable-not attempted and the patient did not perform the activity before the current illness, exacerbation or injury. 10-Not Attempted due to Environmental Limitations-(lack of equipment, weather restraints, etc.). 88-Not Attempted due to Medical Conditions or Safety Concerns. Bed Mobility: 6 Transfers (B,C,W/C): 6 Gait: 6 Stairs: 6 Indoor Mobility (Ambulation): Independent Stairs: Independent Prior Devices Use: Walker PT Evaluation-Current Subjective Patient agrees to PT. Objective Patient Orientation: Normal For Age Attachments: Oxygen (vapotherm), Kohler Catheter ROM/Strength ROM Lower Extremities bilateral LE WFL Strength Lower Extremities 3/5 grossly bilateral LE Integumentary/Posture Integumentary refer to nursing notes Bowel Incontinence: No Bladder Incontinence: Kohler Cath Posture kyphotic Neuromuscular (Tone, Coordination, Reflexes) grossly intact Sensory Vision: Wears Glasses Hearing: Impaired Transfers Roll Left to Right (QC): 3 Sit to Lying (QC): 3 Lying to Sitting/Side of Bed(Q: 3 Sit to Stand (QC): 3 Chair/Kct-jm-Cedhw Xfer(QC): 3 Gait Does the Patient Walk?: No and Walking Goal IS indicated Mode of Locomotion: Walk Anticipated Mode of Locomotion: Walk Gait Assistive Device: FWW Balance Sitting Static: Normal Sitting Dynamic: Normal Standing Static: Fair Standing Dynamic: Fair Assessment/Needs 85 y.o. male, currently on Vapotherm, will benefit from skilled PT to address functional strength and mobility to improve current LOF and to address pulmonary function. 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 Operator Goals Time Frame: Jan 06, 2021 Roll Left & Right (QC): 5 Sit to Lying (QC): 5 Lying-Sitting on Side/Bed(QC): 5 Sit to Stand (QC): 5 Chair/Dda-qi-Ayuft Xfer(QC): 5 Toilet Transfer (QC): 5 Does the Patient Walk: Yes Walk 10 feet (QC): 5 Walk 50ft with 2 Turns (QC): 5 Walk 150 ft (QC): 5 1 Step (curb) (QC): 5 4 Steps (QC): 4 PT Plan Problem List Problem List: Activity Tolerance, Functional Strength, Safety, Balance, Gait, Transfer, Bed Mobility Treatment/Plan Treatment Plan: Continue Plan of Care Treatment Plan: Bed Mobility, Education, Functional Activity Jennifer, Functional Strength, Gait, Safety, Therapeutic Exercise, Transfers Treatment Duration: Jan 06, 2021 Frequency: 6 times per week Estimated Hrs Per Day: .25 hour per day Patient and/or Family Agrees t: Yes Time/GCodes Time In: 1000 Time Out: 1013 Total Billed Treatment Time: 13 Total Billed Treatment 1 visit EVMod 13 min STANISLAV BARR PT Dec 23, 2020 10:21
[2020-12-23] MEDS ORDERED: predniSONE 20 MG TAB ONE ×2 (11:45→11:47)
[2020-12-23] MEDS: MELATONIN 3 MG TABLET PO SCH (20:08)
[2020-12-24] MEDS: RT-ALBUTEROL INHALER HFA (VENTOLIN HFA) 18 GM IH SCH ×6 (02:08→22:16)
[2020-12-24 03:14] LABS: BASOPHILS % (AUTO) 0 % (0-10); EOSINOPHILS % (AUTO) 0 % (0-10); HEMATOCRIT 27 % (40-54); HEMOGLOBIN 8.8 g/dL (13.3-17.7); LYMPHOCYTES # (AUTO) 0.9 10^3/uL (1.0-4.0); LYMPHOCYTES % (AUTO) 6 % (12-44); MEAN CORPUSCULAR HEMOGLOBIN 28 pg (25-34); MEAN CORPUSCULAR HGB CONC 33 g/dL (32-36); MEAN CORPUSCULAR VOLUME 86 fL (80-99); MEAN PLATELET VOLUME 9.6 fL (9.0-12.2); MONOCYTES # (AUTO) 1.4 10^3/uL (0.0-1.0); MONOCYTES % (AUTO) 9 % (0-12); NEUTROPHILS # (AUTO) 13.7 10^3/uL (1.8-7.8); NEUTROPHILS % (AUTO) 85 % (42-75); PLATELET COUNT 325 10^3/uL (130-400); WHITE BLOOD COUNT 16.2 10^3/uL (4.3-11.0)
[2020-12-24 03:39] LABS: CHLORIDE 97 MMOL/L (98-107); POTASSIUM 4.4 MMOL/L (3.6-5.0); SODIUM 134 MMOL/L (135-145)
[2020-12-24 03:40] LABS: CALCIUM 7.9 MG/DL (8.5-10.1)
[2020-12-24 03:41] LABS: GLUCOSE 108 MG/DL (70-105)
[2020-12-24 03:42] LABS: CARBON DIOXIDE 27 MMOL/L (21-32)
[2020-12-24 03:44] LABS: PHOSPHORUS 2.7 MG/DL (2.3-4.7)
[2020-12-24 03:45] LABS: BUN/CREATININE RATIO 42; CREATININE SERUM 0.73 MG/DL (0.60-1.30); GFR ESTIMATED > 60
[2020-12-24 03:47] LABS: MAGNESIUM 1.9 MG/DL (1.6-2.4)
[2020-12-24] MEDS: MAGNESIUM 1 GM/100 ML IVPB 100 ML IV SCH (04:22)
[2020-12-24] MEDS: POTASSIUM CL 10MEQ/50ML IVPB 50 ML IV SCH (04:22)
[2020-12-24] MEDS: KCL 20 MEQ TAB (K-DUR) PO SCH ×2 (04:23→08:36)
[2020-12-24] MEDS: inSUlin ASPART (NovoLOG) 1 UNIT/0.01 ML (CHARGE PER UNIT) SC SCH ×4 (04:23→20:35)
[2020-12-24] MEDS: CEFEPIME 1,000 MG/SWFI 10 ML IV PUSH IV SCH ×4 (06:37→15:15)
[2020-12-24] MEDS: predniSONE 20 MG TAB PO SCH (06:38)
[2020-12-24] MEDS: CATHETER FLUSH 10 ML SYR IV SCH ×3 (06:54→20:43)
--- NOTE | 2020-12-24 08:07 | Diagnostic Imaging Report ---
Indication: Dyspnea, follow-up pneumonia. Comparison: 12/23/2020. Discussion: Single portable upright view of the chest was obtained. Severe pulmonary infiltrates are stable. Mild cardiomegaly is stable. No pleural fluid or pneumothorax. No osseous abnormality. Impression: 1. Stable severe bilateral pulmonary infiltrates. Dictated by: Dictated on workstation # [id number]
[2020-12-24] MEDS: DOCUSATE SODIUM 100 MG (COLACE) CAP PO SCH ×2 (08:35→20:42)
[2020-12-24] MEDS: FUROSEMIDE 40 MG/4 ML INJ (LASIX) IVP SCH (08:35)
[2020-12-24] MEDS: PANTOPRAZOLE 40 MG (PROTONIX) VIAL IV SCH ×2 (08:35→20:43)
[2020-12-24] MEDS: guaiFENesin (MUCINEX) 600 MG TAB PO SCH ×2 (08:35→20:42)
--- NOTE | 2020-12-24 09:55 | Progress Note - Hospitalist ---
Subjective HPI/CC On Admission Date Seen by Provider: Dec 24, 2020 Time Seen by Provider: 09:49 Pt is an 85yoCM with a PMH pAF, DM, COPD on 19/05 6lpm oxygen, HTD, HLD who presented to the ER due to SOB. He states he has had a cough for a few days but yesterday developed SOB and flu like symptoms. He denies any sick contacts. He denies loss of taste nor smell. He denies nausea, vomiting, and diarrhea. He reports feeling a little better today now that he is on Vapotherm. RN reports increased need of oxygen slightly this morning. Subjective/Events-last exam Pt reports doing well. Breathing is much better. Off Vapotherm. Focused Exam Time of Focused Exam: 16:51 Objective Exam Vital Signs Vital Signs Date Time Temp Pulse Resp B/P (MAP) Pulse Ox O2 Delivery O2 Flow Rate FiO2 12/24/20 09:00 69 23 138/59 (85) 97 High Flow N/C 6.00 12/23/20 23:15 36.6 12/23/20 15:54 50 Capillary Refill : Less Than 3 Seconds General Appearance: No Apparent Distress, Chronically ill, Thin Respiratory: Lungs Clear; No Decreased Breath Sounds; Other (on 6lpm) Cardiovascular: Regular Rate, Rhythm, No Murmur Gastrointestinal: Normal Bowel Sounds, Non Tender, Soft Neurologic/Psychiatric: Alert, Oriented x3 Results/Procedures Lab Laboratory Tests 12/24/20 02:50 Patient resulted labs reviewed. Imaging: Reviewed Imaging Report Assessment/Plan Assessment and Plan Assess & Plan/Chief Complaint Acute on chronic respiratory failure Pneumonia- severe sepsis POA now resolved COPD Continue on Cefepime Now on nasal cannula, near his baseline Pulm consulted, appreciate recs Continue Steroids COVID PCR negative Transfer to 4th today Anemia History of GI bleed Hold anticoagulation Hgb stable Surgery consulted FOBT +, may need colonoscopy at some point if he continues to drop his H&H pAF HTN HLD Hold anticoagulation BP well controlled Consulted cardiology, appreciate their assistance NIDDMII Hold metformin SSI DVT ppx: SCDs only HELENE MORAN MD Dec 24, 2020 09:55
--- NOTE | 2020-12-24 10:19 | Progress Note - Surgery ---
JAYDEN BUCK MED STUDENT 12/24/20 1019: Subjective Date Seen by a Provider: Dec 24, 2020 Time Seen by a Provider: 10:14 Subjective/Events-last exam Pt awake and in bed upon entry. Pt states that he is breathing well today. Notes BM yesterday. Denies pain or sputum production today. No acute events over night. Review of Systems General: No Chills, No Night Sweats HEENT: No Head Aches, No Dysphasia Pulmonary: Dyspnea, Cough (no sputum production today) Cardiovascular: No: Chest Pain, Palpitations Gastrointestinal: No: Nausea, Vomiting, Abdominal Pain Genitourinary: No Dysuria, No Hematuria Musculoskeletal: No: back pain, leg pain Neurological: No: Weakness, Numbness Focused Exam Time of Focused Exam: 16:51 Objective Exam Vital Signs Date Time Temp Pulse Resp B/P (MAP) Pulse Ox O2 Delivery O2 Flow Rate FiO2 12/24/20 10:00 93 High Flow N/C 6.00 12/24/20 10:00 69 27 133/60 (84) 98 High Flow N/C 6.00 12/24/20 09:00 69 23 138/59 (85) 97 High Flow N/C 6.00 12/24/20 08:30 36.3 12/24/20 08:00 93 High Flow N/C 6.00 12/24/20 08:00 73 26 142/67 (92) 92 High Flow N/C 6.00 12/24/20 07:33 93 High Flow N/C 6.00 12/24/20 07:00 67 12/24/20 07:00 68 18 150/68 (95) 92 High Flow N/C 6.00 12/24/20 06:00 62 18 150/64 (92) 93 High Flow N/C 6.00 12/24/20 05:00 70 20 153/65 (94) 93 High Flow N/C 6.00 12/24/20 04:00 67 16 156/70 (98) 95 High Flow N/C 6.00 12/24/20 03:54 94 High Flow N/C 6.00 12/24/20 03:00 68 22 149/66 (93) 91 High Flow N/C 6.00 12/24/20 02:10 93 High Flow N/C 6.00 12/24/20 02:00 66 22 151/65 (93) 95 High Flow N/C 6.00 12/24/20 01:00 86 12/24/20 01:00 72 27 142/70 (94) 92 High Flow N/C 6.00 12/24/20 00:00 94 High Flow N/C 6.00 12/24/20 00:00 69 28 145/70 (95) 96 High Flow N/C 6.00 12/23/20 23:15 36.6 12/23/20 23:00 70 26 142/65 (90) 91 High Flow N/C 6.00 12/23/20 22:00 69 26 135/76 (95) 90 High Flow N/C 6.00 12/23/20 21:57 93 High Flow N/C 6.00 12/23/20 21:00 69 26 142/69 (93) 95 High Flow N/C 6.00 12/23/20 20:00 94 High Flow N/C 6.00 12/23/20 20:00 75 20 141/73 (95) 92 High Flow N/C 6.00 12/23/20 19:00 76 12/23/20 19:00 76 20 138/89 (105) 91 High Flow N/C 6.00 12/23/20 18:30 92 High Flow N/C 6.00 12/23/20 18:00 85 147/83 (104) 92 High Flow N/C 6.00 12/23/20 17:00 73 33 92 High Flow N/C 6.00 12/23/20 16:00 94 High Flow N/C 6.00 12/23/20 16:00 73 22 141/67 (91) 94 High Flow N/C 6.00 12/23/20 15:54 93 Vapotherm 15.00 50 12/23/20 15:00 73 26 124/67 (86) 91 Vapotherm 15.00 50.00 12/23/20 14:12 Vapotherm 15.00 50.00 12/23/20 14:00 71 26 137/61 (86) 90 Vapotherm 20.00 60.00 12/23/20 13:00 71 27 135/59 (84) 90 Vapotherm 20.00 60.00 12/23/20 12:44 69 12/23/20 12:00 71 26 131/58 (82) Vapotherm 20.00 60.00 12/23/20 11:42 94 Vapotherm 20.00 60 12/23/20 11:00 68 28 131/59 (83) 93 Vapotherm 20.00 60.00 12/23/20 10:35 90 Vapotherm 20.00 60 I & O 12/24/20 07:00 Intake Total 900 ml Output Total 2750 ml Balance -1850 ml Capillary Refill : Less Than 3 Seconds General Appearance: No Apparent Distress, Chronically ill, Thin HEENT: PERRL/EOMI, Moist Mucous Membranes Neck: Normal Inspection, Non Tender Respiratory: Chest Non Tender, Lungs Clear, No Accessory Muscle Use, No Respiratory Distress, Crackles (bilateral); No Decreased Breath Sounds; Other (on 6lpm) Cardiovascular: Regular Rate, Rhythm, No Murmur, Normal Peripheral Pulses Peripheral Pulses: 2+ Dorsalis Pedis (R), 2+ Left Dors-Pedis (L), 2+ Radial Pulses (R), 2+ Radial Pulses (L) Gastrointestinal: normal bowel sounds, non tender, soft; No distended Extremity: Non Tender, No Calf Tenderness, No Pedal Edema Neurologic/Psychiatric: Alert, Oriented x3, No Motor/Sensory Deficits, 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 Skin: Normal Color, Warm/Dry Lymphatic: No Adenopathy (cervical, supraclavicular, axillary) Results Lab Laboratory Tests 12/23/20 11:33: Glucometer 162H 12/23/20 16:31: Glucometer 132H 12/23/20 20:04: Glucometer 181H 12/24/20 02:50: White Blood Count 16.2H, Red Blood Count 3.15L, Hemoglobin 8.8L, Hematocrit 27L, Mean Corpuscular Volume 86, Mean Corpuscular Hemoglobin 28, Mean Corpuscular Hemoglobin Concent 33, Red Cell Distribution Width 15.6H, Platelet Count 325, Mean Platelet Volume 9.6, Immature Granulocyte % (Auto) 1, Neutrophils (%) (Auto) 85H, Lymphocytes (%) (Auto) 6L, Monocytes (%) (Auto) 9, Eosinophils (%) (Auto) 0, Basophils (%) (Auto) 0, Neutrophils # (Auto) 13.7H, Lymphocytes # (Auto) 0.9L, Monocytes # (Auto) 1.4H, Eosinophils # (Auto) 0.0, Basophils # (Auto) 0.0, Immature Granulocyte # (Auto) 0.1, Sodium Level 134L, Potassium Level 4.4, Chloride Level 97L, Carbon Dioxide Level 27, Anion Gap 10, Blood Urea Nitrogen 31H, Creatinine 0.73, Estimat Glomerular Filtration Rate > 60, BUN/Creatinine Ratio 42, Glucose Level 108H, Calcium Level 7.9L, Phosphorus Level 2.7, Magnesium Level 1.9 Microbiology 12/20/20 MRSA Screen - Final, Complete MRSA not isolated 12/19/20 Blood Culture - Preliminary, Resulted No growth Assessment/Plan Assessment/Plan Assessment/Plan GI Bleed - may just be mild gastritis causing some blood loss Anemia - stable at 8.8 this AM, same as yesterday Multilobe pneumonia Leukocytosis, increased to 16.2 this AM from 12.4 yesterday Mildy elevated LFTs Hyperkalemia - resolved Lactic Acidosis -resolved Hypoxia - better on O2 COVID negative Trend H/H, Hold anticoagulation, Continue Abx. Will continue to follow and coordinate with ALVERTO MONROE DO 12/24/20 2000: Subjective Time Seen by a Provider: 10:46 Subjective/Events-last exam Pt seen and examined, just about to walk. States he is feeling better. Review of Systems General: No Chills, No Night Sweats HEENT: No Head Aches Pulmonary: Dyspnea, Cough (no sputum production today) Cardiovascular: No: Chest Pain, Palpitations Gastrointestinal: No: Nausea, Vomiting, Abdominal Pain Genitourinary: No Dysuria, No Hematuria Objective Exam General Appearance: No Apparent Distress, Chronically ill HEENT: PERRL/EOMI, Moist Mucous Membranes Respiratory: Chest Non Tender, Lungs Clear, No Accessory Muscle Use, No Respiratory Distress, Crackles (bilateral); No Decreased Breath Sounds Gastrointestinal: normal bowel sounds, non tender, soft; No distended Assessment/Plan Assessment/Plan Assessment/Plan GI Bleed - may just be mild gastritis causing some blood loss Anemia - stable at 8.8 this AM, same as yesterday Multilobe pneumonia Leukocytosis, increased to 16.2 this AM from 12.4 yesterday Mildy elevated LFTs Hyperkalemia - resolved Lactic Acidosis -resolved Hypoxia - better on O2 COVID negative Trend H/H, Hold anticoagulation, Continue Abx. Will sign off and reconsult as needed. Supervisory-Addendum Brief Verification & Attestation Participated in pt care: history, MDM, physical Personally performed: exam, history, MDM Care discussed with: Medical Student Procedures: n/a Verification and Attestation of Medical Student E/M Service A medical student performed and documented this service. I then reviewed and verified all information documented by the medical student and made modifications to such information, when appropriate. I personally performed a physical exam, medical decision making and then discussed any differences between the notes and made revisions as necessary to create one note. Alverto Esparza , 12/24/20 , 20:00 JAYDEN BUCK MED STUDENT Dec 24, 2020 10:19 ALVERTO ESPARZA DO Dec 24, 2020 20:00
--- NOTE | 2020-12-24 10:22 | Cardiology Progress Note ---
Subjective Date Seen by Provider: Dec 24, 2020 Time Seen by Provider: 10:21 Subjective/Events-last exam Patient is laying down in bed. Feeling better today. Breathing better. Review of Systems General: No Chills, No Night Sweats; Fatigue, Malaise; No Appetite, No Other HEENT: No Head Aches, No Visual Changes, No Eye Pain, No Ear Pain, No Dysphasia, No Sinus Congestion, No Post Nasal Drip, No Sore Throat, No Other Pulmonary: Dyspnea; No Cough, No Pleuritic Chest Pain, No Other Cardiovascular: No: Chest Pain, Palpitations, Orthopnea, Paroxysmal Noc. Dyspnea, Edema, Lt Headedness, Other Focused Exam Time of Focused Exam: 16:51 Objective-Cardiology Exam Last Set of Vital Signs Vital Signs 12/23/20 12/24/20 12/24/20 15:54 08:30 10:00 Temp 36.3 Pulse 69 Resp 27 B/P (MAP) 133/60 (84) Pulse Ox 93 O2 Delivery High Flow N/C O2 Flow Rate 6.00 FiO2 50 Capillary Refill : Less Than 3 Seconds I&O Intake and Output 12/24/20 00:00 Intake Total 920 ml Output Total 2525 ml Balance -1605 ml Intake Oral 920 ml Output Urine Total 2525 ml # Bowel Movements 1 General: Alert, Oriented X3, Cooperative HEENT: Atraumatic, PERRLA Neck: Supple, No JVD, No Thyromegaly Lungs: Normal Air Movement, Other (bilateral rhonchi) Heart: Normal S1, Normal S2, No Murmurs, Other (and irregular) Abdomen: Normal Bowel Sounds, Soft, No Tenderness, No Hepatosplenomegaly, No Masses Extremities: No Clubbing, No Cyanosis, No Edema, Normal Pulses, No Tenderness/Swelling Skin: No Rashes, No Breakdown, No Significant Lesion Neuro: Normal Gait, Normal Speech, Strength at 5/5 X4 Ext, Normal Tone, Sensation Intact Psych/Mental Status: Mental Status NL, Mood NL Results Lab Laboratory Tests 12/24/20 02:50 A/P-Cardiology Admission Diagnosis Acute respiratory failure Pneumonia Anemia Paroxysmal atrial fibrillation Assessment/Plan Acute respiratory failure, pneumonia, currently on nasal cannula, maintaining adequate oxygenation, improving slowly. 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 Patient had initial workup at hospital in [place]. MRI of the head showed subacute infarct, patient is maintained on Eliquis, continue to hold all anticoagulation due to the GI bleed History of syncope, patient had tilt table test which revealed severe dizziness and hypotension back in February 2013. Reports improvement, no further episodes of syncope after increasing salt and fluid intake. Hypertension, monitor blood pressure Hyperlipidemia, monitor lipids Diabetes mellitus, followed and managed by Dr. Howe, seen during the hospitalization with Dr. Bedoya Bilateral moderate carotid stenosis, 40-59 percent per most recent carotid duplex done December 2019, continue to monitor. Dysphagia, Zenker diverticulum, status post Zenker diverticulum surgery done by Dr. Estrada. CRISS FOSTER MD Dec 24, 2020 10:22 am
[2020-12-24] MEDS ORDERED: WATER (STERILE) FOR INJECTION 10 ML ONE (15:02)
[2020-12-24] MEDS ORDERED: CEFEPIME 1 GM/10 ML (MAXIPIME) VIAL ONE (15:02)
[2020-12-24] MEDS: MELATONIN 3 MG TABLET PO SCH (20:42)
[2020-12-25] MEDS: RT-ALBUTEROL INHALER HFA (VENTOLIN HFA) 18 GM IH SCH ×6 (02:28→22:03)
[2020-12-25 05:57] LABS: BASOPHILS % (AUTO) 0 % (0-10); EOSINOPHILS # (AUTO) 0.1 10^3/uL (0.0-0.3); EOSINOPHILS % (AUTO) 1 % (0-10); HEMATOCRIT 29 % (40-54); HEMOGLOBIN 9.3 g/dL (13.3-17.7); LYMPHOCYTES # (AUTO) 1.3 10^3/uL (1.0-4.0); LYMPHOCYTES % (AUTO) 9 % (12-44); MEAN CORPUSCULAR HEMOGLOBIN 28 pg (25-34); MEAN CORPUSCULAR HGB CONC 32 g/dL (32-36); MEAN CORPUSCULAR VOLUME 87 fL (80-99); MEAN PLATELET VOLUME 9.8 fL (9.0-12.2); MONOCYTES # (AUTO) 1.4 10^3/uL (0.0-1.0); MONOCYTES % (AUTO) 10 % (0-12); NEUTROPHILS # (AUTO) 11.7 10^3/uL (1.8-7.8); NEUTROPHILS % (AUTO) 80 % (42-75); PLATELET COUNT 340 10^3/uL (130-400); WHITE BLOOD COUNT 14.7 10^3/uL (4.3-11.0)
[2020-12-25 06:14] LABS: CHLORIDE 98 MMOL/L (98-107); POTASSIUM 4.3 MMOL/L (3.6-5.0); SODIUM 134 MMOL/L (135-145)
[2020-12-25 06:16] LABS: ACANTHOCYTES SLIGHT; ANISOCYTOSIS SLIGHT; ATYPICAL LYMPHOCYTES 2 %; BURR CELLS SLIGHT; CALCIUM 8.1 MG/DL (8.5-10.1); ELLIPT/OVALOCYTES SLIGHT; GLUCOSE 70 MG/DL (70-105); HYPOCHROMASIA SLIGHT; LYMPHOCYTES % (MANUAL) 14 %; MONOCYTES % (MANUAL) 8 %; NEUTROPHILS % (MANUAL) 76 %; POIKILOCYTOSIS SLIGHT
[2020-12-25 06:18] LABS: CARBON DIOXIDE 27 MMOL/L (21-32)
[2020-12-25 06:20] LABS: CREATININE SERUM 0.69 MG/DL (0.60-1.30); GFR ESTIMATED > 60
[2020-12-25 06:21] LABS: BUN/CREATININE RATIO 38
[2020-12-25] MEDS: inSUlin ASPART (NovoLOG) 1 UNIT/0.01 ML (CHARGE PER UNIT) SC SCH ×4 (06:30→20:30)
[2020-12-25] MEDS: CATHETER FLUSH 10 ML SYR IV SCH ×3 (06:39→21:27)
[2020-12-25] MEDS: predniSONE 20 MG TAB PO SCH (06:39)
--- NOTE | 2020-12-25 06:46 | Pulmonary Progress Note ---
Subjective Time Seen by a Provider: 06:41 Subjective/Events-last exam Pt is requiring 6-7 liters of oxygen. Sepsis Event Evaluation Height, Weight, BMI Height: 5'7.00" Weight: 140lbs. 0.0oz. 63.748652ka; 21.15 BMI Method:Stated Focused Exam Time of Focused Exam: 16:51 Exam Exam Vital Signs Date Time Temp Pulse Resp B/P (MAP) Pulse Ox O2 Delivery O2 Flow Rate FiO2 12/25/20 03:36 36.3 69 17 159/70 (99) 91 High Flow N/C 6.50 12/25/20 02:28 88 High Flow N/C 7.00 12/25/20 00:40 36.9 71 22 149/72 (97) 91 High Flow N/C 6.50 12/24/20 22:16 87 High Flow N/C 6.00 12/24/20 20:45 High Flow N/C 6.00 12/24/20 20:00 36.8 73 22 154/70 (98) 93 High Flow N/C 6.00 12/24/20 18:30 90 High Flow N/C 6.00 12/24/20 16:00 37.0 70 20 145/65 (91) 96 High Flow N/C 8.00 12/24/20 14:51 92 High Flow N/C 6.00 12/24/20 12:00 High Flow N/C 6.00 12/24/20 11:51 35.9 75 20 136/64 (88) 91 High Flow N/C 7.00 12/24/20 10:00 93 High Flow N/C 6.00 12/24/20 10:00 69 27 133/60 (84) 98 High Flow N/C 6.00 12/24/20 09:00 69 23 138/59 (85) 97 High Flow N/C 6.00 12/24/20 08:30 36.3 12/24/20 08:00 93 High Flow N/C 6.00 12/24/20 08:00 73 26 142/67 (92) 92 High Flow N/C 6.00 12/24/20 07:33 93 High Flow N/C 6.00 12/24/20 07:00 67 12/24/20 07:00 68 18 150/68 (95) 92 High Flow N/C 6.00 I & O 12/25/20 07:00 Intake Total 1760 ml Output Total 2450 ml Balance -690 ml Height & Weight Height: 5'7.00" Weight: 140lbs. 0.0oz. 63.427233tn; 21.15 BMI Method:Stated General Appearance: No Apparent Distress, Chronically ill HEENT: PERRL/EOMI, Moist Mucous Membranes Neck: Normal Inspection, Non Tender Respiratory: Chest Non Tender, Lungs Clear, No Accessory Muscle Use, No Respiratory Distress, Crackles (bilateral); No Decreased Breath Sounds Cardiovascular: Regular Rate, Rhythm, No Murmur, Normal Peripheral Pulses Capillary Refill: Less Than 3 Seconds Peripheral Pulses: 2+ Dorsalis Pedis (R), 2+ Left Dors-Pedis (L), 2+ Radial Pulses (R), 2+ Radial Pulses (L) Gastrointestinal: normal bowel sounds, non tender, soft; No distended Extremity: Non Tender, No Calf Tenderness, No Pedal Edema Neurologic/Psychiatric: Alert, Oriented x3, No Motor/Sensory Deficits, 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 Skin: Normal Color, Warm/Dry Lymphatic: No Adenopathy (cervical, supraclavicular, axillary) Results Lab Laboratory Tests 12/24/20 02:50 12/25/20 05:02 Assessment/Plan Assessment/Plan Pneumonia with sepsis -COVID negative -Repeat BNP, and Pct -s/p Cefepime-- stopped yesterday after only 5 days -Restart Cefepime and add eraxis -Worsening leukocytosis extensive bilateral infiltrates. -Continue lasix -Prednisone -MRSA swab is negative -Currently on 6-7 liter NC -repeat BNP and PCT Acute on chronic respiratory failure Severe oxygen dependent COPD - He uses 6 liters of oxygen at home Duonebs metabolic lactic acidosis - improved Afib - hx Eliquis T2DM SSI HTN HLD BPH Continue home meds BRITTANY BARRIOS DO Dec 25, 2020 06:46
[2020-12-25] MEDS ORDERED: ANIDULAFUNGIN INJECTION 200 MG in NS (IVPB) 250 ML IV ONE (07:00)
[2020-12-25] MEDS: guaiFENesin (MUCINEX) 600 MG TAB PO SCH ×2 (08:35→21:26)
[2020-12-25] MEDS: PANTOPRAZOLE 40 MG (PROTONIX) VIAL IV SCH (08:35)
[2020-12-25] MEDS: FUROSEMIDE 40 MG/4 ML INJ (LASIX) IVP SCH (08:35)
[2020-12-25] MEDS: CEFEPIME INJECTION 1,000 MG in WATER (STERILE) FOR INJECTION 10 ML IV SCH ×3 (08:35→23:55)
[2020-12-25] MEDS: DOCUSATE SODIUM 100 MG (COLACE) CAP PO SCH ×2 (08:35→21:26)
[2020-12-25] MEDS: KCL 20 MEQ TAB (K-DUR) PO SCH (08:36)
--- NOTE | 2020-12-25 09:43 | Cardiology Progress Note ---
Subjective Date Seen by Provider: Dec 25, 2020 Time Seen by Provider: 09:15 Subjective/Events-last exam Patient is sitting up in bed, denies any chest pain or increased dypsnea. Review of Systems General: No Chills, No Night Sweats, No Fatigue, No Malaise, No Appetite, No Other HEENT: No Head Aches, No Visual Changes, No Eye Pain, No Ear Pain, No Dysphasia, No Sinus Congestion, No Post Nasal Drip, No Sore Throat, No Other Pulmonary: No Dyspnea, No Cough, No Pleuritic Chest Pain, No Other Cardiovascular: No: Chest Pain, Palpitations, Orthopnea, Paroxysmal Noc. Dyspnea, Edema, Lt Headedness, Other Focused Exam Time of Focused Exam: 16:51 Objective-Cardiology Exam Last Set of Vital Signs Vital Signs 12/23/20 12/25/20 12/25/20 15:54 08:40 10:52 Temp 36.7 Pulse 71 Resp 20 B/P (MAP) 170/69 (102) Pulse Ox 94 O2 Delivery High Flow N/C O2 Flow Rate 8.00 FiO2 50 Capillary Refill : Less Than 3 Seconds I&O Intake and Output 12/25/20 00:00 Intake Total 1860 ml Output Total 2950 ml Balance -1090 ml Intake Oral 1860 ml Output Urine Total 2950 ml # Bowel Movements 1 General: Alert, Oriented X3, Cooperative HEENT: Atraumatic, PERRLA Neck: Supple, No JVD, No Thyromegaly Lungs: Normal Air Movement, Other (bilateral rhonchi) Heart: Normal S1, Normal S2, No Murmurs, Other (and irregular) Abdomen: Normal Bowel Sounds, Soft, No Tenderness, No Hepatosplenomegaly, No Masses Extremities: No Clubbing, No Cyanosis, No Edema, Normal Pulses, No Tenderness/Swelling Skin: No Rashes, No Breakdown, No Significant Lesion Neuro: Normal Gait, Normal Speech, Strength at 5/5 X4 Ext, Normal Tone, Sensation Intact Psych/Mental Status: Mental Status NL, Mood NL Results Lab Laboratory Tests 12/25/20 05:02 A/P-Cardiology Admission Diagnosis Acute respiratory failure Pneumonia Anemia Paroxysmal atrial fibrillation Assessment/Plan Acute respiratory failure, pneumonia, currently on nasal cannula, maintaining ad equate oxygenation, improving slowly. 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 Patient had initial workup at hospital in [place]. MRI of the head showed subacute infarct, patient is maintained on Eliquis, continue to hold all anticoagulation due to the GI bleed History of syncope, patient had tilt table test which revealed severe dizziness and hypotension back in February 2013. Reports improvement, no further episodes of syncope after increasing salt and fluid intake. Hypertension, monitor blood pressure Hyperlipidemia, monitor lipids Diabetes mellitus, followed and managed by Dr. Howe, seen during the hospitalization with Dr. Bedoya Bilateral moderate carotid stenosis, 40-59 percent per most recent carotid duplex done December 2019, continue to monitor. Dysphagia, Zenker diverticulum, status post Zenker diverticulum surgery done by Dr. Estrada. Patient was seen and evaluated with Rica, examination performed, management plan was discussed, agree with the current scribed note, I made few changes to the note using Italic font Patient was seen and evaluated, feeling better, breathing better Continue with current treatment and monitor. RICA KING Dec 25, 2020 9:43 am CRISS FOSTER MD Dec 25, 2020 11:54 am
--- NOTE | 2020-12-25 10:36 | Progress Note - Hospitalist ---
MARGRET GONGORA [facility] 12/25/20 1036: Subjective HPI/CC On Admission Date Seen by Provider: Dec 25, 2020 Time Seen by Provider: 08:28 Pt is an 85yoCM with a PMH pAF, DM, COPD on 19/05 6lpm oxygen, HTD, HLD who presented to the ER due to SOB. He states he has had a cough for a few days but yesterday developed SOB and flu like symptoms. He denies any sick contacts. He denies loss of taste nor smell. He denies nausea, vomiting, and diarrhea. He reports feeling a little better today now that he is on Vapotherm. RN reports increased need of oxygen slightly this morning. Subjective/Events-last exam Pt is alert and oriented. No acute events overnight. He is eating and drinking without issue. Having bowel movements and has catheter in place draining clear yellow urine. Denies SOB, Chest pain, abdominal pain, N/V, F/C, dizziness and fatigue at this time. Anticoagulation still on hold, HgB stable at 9.3, WBC improved from 16.2 to 14.7. He will be evaluated for OT and rehab. Review of Systems General: No Chills, No Fatigue Pulmonary: No Dyspnea; Cough; No Pleuritic Chest Pain Cardiovascular: No: Chest Pain, Edema Gastrointestinal: No: Nausea, Vomiting Musculoskeletal: No: neck pain, leg pain Neurological: No: Numbness, Confusion Focused Exam Time of Focused Exam: 16:51 Objective Exam Vital Signs Vital Signs Date Time Temp Pulse Resp B/P (MAP) Pulse Ox O2 Delivery O2 Flow Rate FiO2 12/25/20 10:52 36.7 71 94 12/25/20 08:40 20 170/69 (102) High Flow N/C 8.00 12/23/20 15:54 50 Capillary Refill : Less Than 3 Seconds General Appearance: No Apparent Distress, Chronically ill HEENT: PERRL/EOMI Neck: Normal Inspection, Non Tender Respiratory: Chest Non Tender, No Accessory Muscle Use, No Respiratory Distress, Crackles (Minimal BL ), Wheezing (Minimal BL ) Cardiovascular: Regular Rate, Rhythm, No Edema, Normal Peripheral Pulses Gastrointestinal: Non Tender, Soft Extremity: Non Tender, No Calf Tenderness Neurologic/Psychiatric: Alert, Oriented x3, 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 Skin: Normal Color, Warm/Dry Lymphatic: No Adenopathy Results/Procedures Lab Laboratory Tests 12/25/20 05:02 Patient resulted labs reviewed. Imaging: Reviewed Imaging Report Assessment/Plan Assessment and Plan Assess & Plan/Chief Complaint Acute on chronic respiratory failure Pneumonia- severe sepsis POA now resolved COPD Continue on Cefepime and Antifungal (added by Dr. Rocha 12/25/2020) Now on nasal cannula currently 9L, baseline is 6L at home. Pulm consulted, appreciate recs Continue Steroids COVID PCR negative CXR on 12/24: stable severe pulmonary infiltrates Anemia History of GI bleed Hold anticoagulation Hgb stable (last transfusion was 12/22, HgB 9.3 (8.8)) Surgery Consulted (EGD on 12/19 shows mild gastritis) FOBT +, may need colonoscopy at some point if he continues to drop his H&H Trend H/H pAF HTN HLD Hold anticoagulation BP well controlled Appreciate Cardiology's Assistance NIDDMII Hold metformin SSI DVT ppx: SCDs only Continue PT. Evaluation for OT and Rehab needed. BNP was 477, receiving Lasix. Will continue catheter for I/O's and Lasix therapy. LAURA HARRISON DO 12/26/20 0542: Subjective Subjective/Events-last exam Pt doing a lot better Hgb 9.3 s/p two units of blood Chest X-ray shows stable infiltrates, he has a recents episode of sepsis and respiratory failure Has been weaned down off Vapotherm, on 9 liters of oxygen right now and he uses 6 liters at home He does have a catheter in place, has been receiving Lasix so will hold off on discontinuing that PT and OT will be ordered Eraxis ordered BNP elevated at 477 and holding Eliquis due to GI bleed Review of Systems General: Fatigue Pulmonary: Cough Objective Exam General Appearance: No Apparent Distress, WD/WN, Chronically ill Respiratory: No Accessory Muscle Use, No Respiratory Distress, Crackles (Mi nimal BL ), Wheezing (Minimal BL ) Cardiovascular: Regular Rate, Rhythm, No Edema, No Gallop, No JVD, No Murmur, Normal Peripheral Pulses Neurologic/Psychiatric: Alert, Oriented x3, No Motor/Sensory Deficits, 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 Assessment/Plan Assessment and Plan Assess & Plan/Chief Complaint Monitor O2 Monitor BP PT OT Catheter Supervisory-Addendum Brief Verification & Attestation Participated in pt care: history, MDM, physical Personally performed: exam, history, MDM, supervision of care Care discussed with: Medical Student Procedures: n/a Results interpretation: Verified all documentation Verification and Attestation of Medical Student E/M Service A medical student performed and documented this service in my presence. I reviewed and verified all information documented by the medical student and made modifications to such information, when appropriate. I personally performed the physical exam and medical decision making. Laura Harrison, Dec 26, 2020,05:41 MARGRET GONGORA [facility] Dec 25, 2020 10:36 LAURA HARRISON DO Dec 26, 2020 05:42
[2020-12-25 10:52] VITALS: BP 170/69
--- NOTE | 2020-12-25 11:24 | Physical Therapy Daily Note ---
PT Daily Note-Current Subjective Patient agrees to PT. No c/o. Mental Status Patient Orientation: Normal For Age Attachments: Oxygen, IV Transfers SCALE: Activities may be completed with or without assistive devices. 2-Ufxjggpppq-jymygpk completes the activity by him/herself with no assistance from a helper. 5-Set-up or Clean-up Assistance-helper sets up or cleans up; patient completes activity. [place] assists only prior to or following the activity. 4-Supervision or Touching Assistance-helper provides verbal cues and/or touching/steadying and/or contact guard assistance as patient completes activity. Assistance may be provided throughout the activity or intermittently. 3-Partial/Moderate Assistance-helper does LESS THAN HALF the effort. [place] lift s, holds or supports trunk or limbs, but provides less than half the effort. 2-Substantial/Maximal Assistance-helper does MORE THAN HALF the effort. [place] lifts or holds trunk or limbs and provides more than half the effort. 7-Dbnwnyatw-wkburu does ALL the effort. Patient does none of the effort to complete the activity. Or, the assistance of 2 or more helpers is required for the patient to complete the activity. If activity was not attempted, code reason: 7-Patient Refused. 9-Not Applicable-not attempted and the patient did not perform the activity before the current illness, exacerbation or injury. 10-Not Attempted due to Environmental Limitations-(lack of equipment, weather restraints, etc.). 88-Not Attempted due to Medical Conditions or Safety Concerns. Roll Left & Right (QC): 6 Sit to Lying (QC): 6 Lying to Sitting/Side of Bed(Q: 6 Sit to Stand (QC): 4 Chair/Lsw-rx-Giszi Xfer(QC): 4 CGA for safety Gait Training Does the Patient Walk?: Yes Distance: 30' x 1/150' x 1 Walk 10 feet (QC): 4 Walk 50 ft with 2 Turns(QC): 4 Walk 150 ft (QC): 4 Gait Assistive Device: FWW CGA for safety Exercises Seated Therapy Exercises: Ankle pumps, Long arc quads, Hip flexion, Hip abd/add Seated Reps: 15 Assessment Patient on 8L HF O2 NC upon entry and decreased to 6 L per RT secondary to SAO2 94%. Patient tolerated treatment well and is up in recliner with needs met. PT Tabulating Machine Mechanic Goals Tabulating Machine Mechanic Goals PT Mcc Goals Time Frame: Jan 06, 2021 Roll Left & Right (QC): 5 Sit to Lying (QC): 5 Lying-Sitting on Side/Bed(QC): 5 Sit to Stand (QC): 5 Chair/Bdu-ry-Udjex Xfer(QC): 5 Toilet Transfer (QC): 5 Does the Patient Walk: Yes Walk 10 feet (QC): 5 Walk 50ft with 2 Turns (QC): 5 Walk 150 ft (QC): 5 1 Step (curb) (QC): 5 4 Steps (QC): 4 PT Plan Treatment/Plan Treatment Plan: Continue Plan of Care Treatment Plan: Bed Mobility, Education, Functional Activity Jennifer, Functional Strength, Gait, Safety, Therapeutic Exercise, Transfers Treatment Duration: Jan 06, 2021 Frequency: 6 times per week Estimated Hrs Per Day: .25 hour per day Patient and/or Family Agrees t: Yes Time/GCodes Time In: 1043 Time Out: 1056 Total Billed Treatment Time: 13 Total Billed Treatment 1 visit FA 13 min STANISLAV BARR PT Dec 25, 2020 11:24
[2020-12-25] MEDS ORDERED: CEFEPIME INJECTION 1,000 MG in WATER (STERILE) FOR INJECTION 10 ML IV SCH (12:00)
--- NOTE | 2020-12-25 13:52 | Occupational Therapy Eval ---
OT Evaluation-General/PLF Medical Diagnosis Admission Date Dec 19, 2020 at 17:30 Medical Diagnosis: pneumonia/sepsis/respiratory failure/hypoxia Onset Date: Dec 19, 2020 Therapy Diagnosis Therapy Diagnosis: Weakness Height/Weight Height (Feet): 5 Height (Inches): 7.00 Weight (Pounds): 140 Weight (Ounces): 0.0 Precautions Precautions/Isolations: Fall Prevention, Standard Precautions Weight Bear Status Weight Bearing Restriction: Weight Bearing/Tolerated Referral Physician: Navya Referral Reason: Activity Tolerance, Self Care, Evaluation/Treatment, Strengthening/ROM Medical History Pertinent Medical History: Atrial Fib, Arthritis, CAD, COPD, DM, GERD, HTN Additional Medical History HLD, Valvular heart Current History Pt. began having difficulty with breathing at home. Came to ER. Found to have pneumonia. Reviewed History: Yes Social History Home: Single Level Current Living Status: Spouse Entry Into Home: Stairs With Railing Steps Into Home: 3 ADL-Prior Level of Function SCALE: Activities may be completed with or without assistive devices. 7-Ulkdllwceb-pymtwwr completes the activity by him/herself with no assistance from a helper. 5-Set-up or Clean-up Assistance-helper sets up or cleans up; patient completes activity. [place] assists only prior to or following the activity. 4-Supervision or Touching Assistance-helper provides verbal cues and/or touching/steadying and/or contact guard assistance as patient completes activity. Assistance may be provided throughout the activity or intermittently. 3-Partial/Moderate Assistance-helper does LESS THAN HALF the effort. [place] lifts, holds or supports trunk or limbs, but provides less than half the effort. 2-Substantial/Maximal Assistance-helper does MORE THAN HALF the effort. [place] lifts or holds trunk or limbs and provides more than half the effort. 6-Qubdrqnua-lbqjfh does ALL the effort. Patient does none of the effort to complete the activity. Or, the assistance of 2 or more helpers is required for the patient to complete the activity. If activity was not attempted, code reason: 7-Patient Refused. 9-Not Applicable-not attempted and the patient did not perform the activity before the current illness, exacerbation or injury. 10-Not Attempted due to Environmental Limitations-(lack of equipment, weather restraints, etc.). 88-Not Attempted due to Medical Conditions or Safety Concerns. ADL PLOF Comments Pt. states that he uses 6 L 02 at home. Previous to this hospitalization, he had difficulty with donning socks and shoes due to a "bad back." Pt's spouse does this for him, but occasionally he uses a sock aide at home. Pt. uses a walker and is currently on 6-7 L 02. Self Care: Needed Some Help Functional Cognition: Independent DME/Equipment: Bath Chair, Shower DME/Equipment Comments Pt. has a walker and sock aide. 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 OT Current Status Subjective No pain reported. Appearance Pt. in bed. Alert and oriented. Agrees to work with OT. Mental Status/Objective Patient Orientation: Person, Place, Time, Situation Attachments: Oxygen Current Glasses/Contacts: Yes Hand Dominance: Right Upper Extremity ROM WFL ADL-Treatment Eating (QC): 5 On/Off Footwear (QC): 2 Other Treatments Pt. is able to transfer supine-sit with SBA. Pt. is able to stand at bedside with SBA, and maintain standing balance approximately 3 minutes, without use of walker. Pt. verbalizes that he is able to bathe and dress self at home, but occasionally his spouse assists with donning socks and shoes. Pt. and OT talk about importance of pt. sitting up in chair for deep breathing and lung support. Pt. verbalizes understanding, but states that he would rather wait to get up for lunch. Pt. transfers back to bed, SBA sit-supine. All needs met. Education OT Patient Education: Correct positioning, Modified ADL techniques, Progress toward Goal/Update tx plan, Purpose of tx/functional activities, Reviewed precautions, Rehab process, Transfer techniques Teaching Recipient: Patient Teaching Methods: Demonstration, Discussion Response to Teaching: Verbalize Understanding, Return Demonstration OT Short Term Goals Short Term Goals Time Frame: Jan 01, 2021 Eatin Oral hygiene: 4 Toileting hygiene: 4 Shower/bathe self: 3 Upper body dressin Lower body dressin Putting on/taking off footwear: 3 (With AE) OT Mud Mill Tender Goals Mud Mill Tender Goals Time Frame: Jan 08, 2021 Eating (QC): 6 Oral Hygiene (QC): 6 Toileting Hygiene (QC): 6 Shower/Bathe Self (QC): 4 Upper Body Dressing (QC): 6 Lower Body Dressing (QC): 6 On/Off Footwear (QC): 5 (Set up with AE) Additional Goals: 1-Demonstrate ADL Tasks, 2-Verbalize Understanding, 3-Improve Strength/Jennifer 1=Demonstrate adherence to instructed precautions during ADL tasks. 2=Patient will verbalize/demonstrate understanding of assistive devices/modifications for ADL. 3=Patient will improve strength/tolerance for activity to enable patient to pe rform ADL's. OT Education/Plan Problem List/Assessment Assessment: Decreased Activ Tolerance, Impaired I ADL's, Impaired Self-Care Skills Discharge Recommendations Plan/Recommendations: Continue POC Therapy Discharge Recommendati: Post Acute OT Equpiment Recommendations-D/C: Hip Kit Treatment Plan/Plan of Care Treatment,Training & Education: Yes Patient would benefit from OT for education, treatment and training to promote independence in ADL's, mobility, safety and/or upper extremity function for ADL's. Plan of Care: ADL Retraining, Functional Mobility, UE Funct Exercise/Act Treatment Duration: Jan 08, 2021 Frequency: 5 times per week Estimated Hrs Per Day: .25 hour per day Agreement: Yes Rehab Potential: Good Time/GCodes Start Time: 10:25 Stop Time: 10:40 Total Time Billed (hr/min): 15 Billed Treatment Time 1, CLAUDIA PENA OT Dec 25, 2020 13:52
[2020-12-25] MEDS: PANTOPRAZOLE 40 MG (PROTONIX) TAB PO SCH (21:26)
[2020-12-25] MEDS: MELATONIN 3 MG TABLET PO SCH (21:26)
[2020-12-25] MEDS: ACETAMINOPHEN 325 MG TABLET PO PRN (23:55)
[2020-12-26] MEDS: RT-ALBUTEROL INHALER HFA (VENTOLIN HFA) 18 GM IH SCH ×6 (02:20→21:54)
[2020-12-26] MEDS: predniSONE 20 MG TAB PO SCH (05:21)
[2020-12-26] MEDS: inSUlin ASPART (NovoLOG) 1 UNIT/0.01 ML (CHARGE PER UNIT) SC SCH ×4 (05:21→20:49)
[2020-12-26] MEDS: CATHETER FLUSH 10 ML SYR IV SCH ×3 (05:22→20:49)
[2020-12-26 06:31] LABS: BASOPHILS % (AUTO) 0 % (0-10); EOSINOPHILS # (AUTO) 0.3 10^3/uL (0.0-0.3); EOSINOPHILS % (AUTO) 3 % (0-10); HEMATOCRIT 30 % (40-54); HEMOGLOBIN 9.7 g/dL (13.3-17.7); LYMPHOCYTES # (AUTO) 1.4 10^3/uL (1.0-4.0); LYMPHOCYTES % (AUTO) 11 % (12-44); MEAN CORPUSCULAR HEMOGLOBIN 28 pg (25-34); MEAN CORPUSCULAR HGB CONC 32 g/dL (32-36); MEAN CORPUSCULAR VOLUME 88 fL (80-99); MEAN PLATELET VOLUME 9.9 fL (9.0-12.2); MONOCYTES # (AUTO) 1.2 10^3/uL (0.0-1.0); MONOCYTES % (AUTO) 9 % (0-12); NEUTROPHILS # (AUTO) 9.6 10^3/uL (1.8-7.8); NEUTROPHILS % (AUTO) 77 % (42-75); PLATELET COUNT 332 10^3/uL (130-400); WHITE BLOOD COUNT 12.6 10^3/uL (4.3-11.0)
[2020-12-26 06:42] LABS: ALBUMIN 2.8 GM/DL (3.2-4.5); CHLORIDE 97 MMOL/L (98-107); POTASSIUM 4.3 MMOL/L (3.6-5.0); SODIUM 134 MMOL/L (135-145)
[2020-12-26 06:43] LABS: CALCIUM 8.2 MG/DL (8.5-10.1)
[2020-12-26 06:44] LABS: GLUCOSE 80 MG/DL (70-105); TOTAL PROTEIN 5.6 GM/DL (6.4-8.2)
[2020-12-26 06:45] LABS: CARBON DIOXIDE 30 MMOL/L (21-32)
[2020-12-26 06:46] LABS: BILIRUBIN,TOTAL 0.8 MG/DL (0.1-1.0)
[2020-12-26 06:47] LABS: ALKALINE PHOSPHATASE 71 U/L (40-136)
[2020-12-26 06:48] LABS: CREATININE SERUM 0.79 MG/DL (0.60-1.30); GFR ESTIMATED > 60
[2020-12-26 06:49] LABS: BUN/CREATININE RATIO 30
[2020-12-26 06:51] LABS: ALANINE AMINOTRANSFERASE 77 U/L (0-55)
--- NOTE | 2020-12-26 07:16 | Pulmonary Progress Note ---
Subjective Time Seen by a Provider: 07:10 Subjective/Events-last exam No complications noted. Sepsis Event Evaluation Height, Weight, BMI Height: 5'7.00" Weight: 140lbs. 0.0oz. 63.091168qg; 21.15 BMI Method:Stated Focused Exam Time of Focused Exam: 16:51 Exam Exam Vital Signs Date Time Temp Pulse Resp B/P (MAP) Pulse Ox O2 Delivery O2 Flow Rate FiO2 12/26/20 06:50 90 High Flow N/C 6.00 12/26/20 04:44 36.4 63 18 155/67 (96) 95 High Flow N/C 8.00 12/25/20 23:41 36.6 66 18 158/72 (100) 95 High Flow N/C 8.00 12/25/20 22:03 93 High Flow N/C 8.00 12/25/20 19:57 High Flow N/C 8.00 12/25/20 19:22 36.3 75 18 160/66 (97) 91 High Flow N/C 8.00 12/25/20 18:43 92 High Flow N/C 8.00 12/25/20 16:08 36.8 67 16 150/63 (92) 94 High Flow N/C 8.00 12/25/20 14:03 92 High Flow N/C 8.00 12/25/20 12:19 36.4 68 20 144/60 (88) 99 High Flow N/C 8.00 12/25/20 10:52 36.7 71 94 12/25/20 10:27 91 High Flow N/C 8.00 12/25/20 08:40 36.7 77 20 170/69 (102) 92 High Flow N/C 8.00 I & O 12/26/20 07:00 Intake Total 2240 ml Output Total 2075 ml Balance 165 ml Height & Weight Height: 5'7.00" Weight: 140lbs. 0.0oz. 63.560883os; 21.15 BMI Method:Stated General Appearance: No Apparent Distress, WD/WN, Chronically ill HEENT: PERRL/EOMI Neck: Normal Inspection, Non Tender Respiratory: No Accessory Muscle Use, No Respiratory Distress, Crackles (Minimal BL ), Wheezing (Minimal BL ) Cardiovascular: Regular Rate, Rhythm, No Edema, No Gallop, No JVD, No Murmur, Normal Peripheral Pulses Capillary Refill: Less Than 3 Seconds Peripheral Pulses: 2+ Dorsalis Pedis (R), 2+ Left Dors-Pedis (L), 2+ Radial Pulses (R), 2+ Radial Pulses (L) Gastrointestinal: normal bowel sounds, non tender, soft; No distended Extremity: Non Tender, No Calf Tenderness Neurologic/Psychiatric: Alert, Oriented x3, No Motor/Sensory Deficits, 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 Skin: Normal Color, Warm/Dry Lymphatic: No Adenopathy Results Lab Laboratory Tests 12/25/20 05:02 12/26/20 05:37 Assessment/Plan Assessment/Plan Pneumonia with sepsis -COVID negative - Cefepime and eraxis -Continue lasix -- increase to 80mg for now -Repeat CXR -Prednisone -MRSA swab is negative -Currently on 6 liter NC Acute on chronic respiratory failure Severe oxygen dependent COPD - He uses 6 liters of oxygen at home Duonebs metabolic lactic acidosis - improved Afib - hx Eliquis T2DM SSI HTN HLD BPH Continue home meds BRITTANY BARRIOS DO Dec 26, 2020 07:16
[2020-12-26] MEDS: PANTOPRAZOLE 40 MG (PROTONIX) TAB PO SCH ×2 (08:18→20:49)
[2020-12-26] MEDS: FUROSEMIDE 40 MG/4 ML INJ (LASIX) IVP SCH (08:18)
[2020-12-26] MEDS: CEFEPIME INJECTION 1,000 MG in WATER (STERILE) FOR INJECTION 10 ML IV SCH ×2 (08:18→17:40)
[2020-12-26] MEDS: KCL 20 MEQ TAB (K-DUR) PO SCH (08:19)
[2020-12-26] MEDS: ANIDULAFUNGIN INJECTION 100 MG in NS (IVPB) 100 ML IV SCH (08:19)
[2020-12-26] MEDS: guaiFENesin (MUCINEX) 600 MG TAB PO SCH ×2 (08:19→20:49)
[2020-12-26] MEDS: DOCUSATE SODIUM 100 MG (COLACE) CAP PO SCH ×2 (08:19→20:48)
--- NOTE | 2020-12-26 08:41 | Diagnostic Imaging Report ---
EXAMINATION: Chest 1 view HISTORY: Shortness of breath. COMPARISON: 12/24/2020. FINDINGS: There is improved aeration in the bilateral midlungs with continued patchy interstitial and alveolar opacities throughout both lungs. No large pleural effusion or pneumothorax. Stable cardiac silhouette. IMPRESSION: 1. Improved aeration in the midlungs bilaterally with continued diffuse opacities present. This may represent improving infection or edema. Dictated by: Dictated on workstation # [id number]
--- NOTE | 2020-12-26 10:29 | Physical Therapy Daily Note ---
PT Daily Note-Current Subjective Patient agrees to PT. No c/o. He report he is on 6L O2 at home as he is here. Mental Status Patient Orientation: Normal For Age Attachments: Oxygen (6L HF), Kohler Catheter, IV Transfers SCALE: Activities may be completed with or without assistive devices. 9-Emxwvrktjm-jqmenof completes the activity by him/herself with no assistance from a helper. 5-Set-up or Clean-up Assistance-helper sets up or cleans up; patient completes activity. [place] assists only prior to or following the activity. 4-Supervision or Touching Assistance-helper provides verbal cues and/or touching/steadying and/or contact guard assistance as patient completes activity. Assistance may be provided throughout the activity or intermittently. 3-Partial/Moderate Assistance-helper does LESS THAN HALF the effort. [place] lifts, holds or supports trunk or limbs, but provides less than half the effort. 2-Substantial/Maximal Assistance-helper does MORE THAN HALF the effort. [place] lifts or holds trunk or limbs and provides more than half the effort. 4-Xpqyffecg-lqylgl does ALL the effort. Patient does none of the effort to complete the activity. Or, the assistance of 2 or more helpers is required for the patient to complete the activity. If activity was not attempted, code reason: 7-Patient Refused. 9-Not Applicable-not attempted and the patient did not perform the activity befo re the current illness, exacerbation or injury. 10-Not Attempted due to Environmental Limitations-(lack of equipment, weather re straints, etc.). 88-Not Attempted due to Medical Conditions or Safety Concerns. Roll Left & Right (QC): 6 Sit to Lying (QC): 6 Lying to Sitting/Side of Bed(Q: 6 Sit to Stand (QC): 4 Chair/Zue-us-Daeaw Xfer(QC): 4 SBA for safety Gait Training Does the Patient Walk?: Yes Distance: 250' Walk 10 feet (QC): 4 Walk 50 ft with 2 Turns(QC): 4 Walk 150 ft (QC): 4 Gait Assistive Device: FWW SBA only/assist for IV and O2 tank/safe and functional gait sequence Exercises Supine Ex: Ankle pumps, Heel Slides, Straight leg raise Supine Reps: 12 Seated Therapy Exercises: Long arc quads Seated Reps: 15 Assessment Patient tolerated treatment well and returned to bed. Patient has mild SOA with activity, however, much improved. PT Engraver Steel Plate Goals Snf Goals PT Engraver Steel Plate Goals Time Frame: Jan 06, 2021 Roll Left & Right (QC): 5 Sit to Lying (QC): 5 Lying-Sitting on Side/Bed(QC): 5 Sit to Stand (QC): 5 Chair/Bhr-mj-Jwynb Xfer(QC): 5 Toilet Transfer (QC): 5 Does the Patient Walk: Yes Walk 10 feet (QC): 5 Walk 50ft with 2 Turns (QC): 5 Walk 150 ft (QC): 5 1 Step (curb) (QC): 5 4 Steps (QC): 4 PT Plan Treatment/Plan Treatment Plan: Continue Plan of Care Treatment Plan: Bed Mobility, Education, Functional Activity Jennifer, Functional Strength, Gait, Safety, Therapeutic Exercise, Transfers Treatment Duration: Jan 06, 2021 Frequency: 6 times per week Estimated Hrs Per Day: .25 hour per day Patient and/or Family Agrees t: Yes Time/GCodes Time In: 930 Time Out: 953 Total Billed Treatment Time: 23 Total Billed Treatment 1 visit EX 10 min FA 13 min STANISLAV BARR PT Dec 26, 2020 10:29
--- NOTE | 2020-12-26 11:16 | Progress Note - Hospitalist ---
MARGRET GONGORA [facility] [place] 12/26/20 1116: Subjective HPI/CC On Admission Date Seen by Provider: Dec 26, 2020 Time Seen by Provider: 09:35 Pt is an 85yoCM with a PMH pAF, DM, COPD on 19/05 6lpm oxygen, HTD, HLD who presented to the ER due to SOB. He states he has had a cough for a few days but yesterday developed SOB and flu like symptoms. He denies any sick contacts. He denies loss of taste nor smell. He denies nausea, vomiting, and diarrhea. He reports feeling a little better today now that he is on Vapotherm. RN reports increased need of oxygen slightly this morning. Subjective/Events-last exam Pt is alert and oriented. No acute events overnight. Pt is sitting up in bed. Pleasant mood. He is eating and drinking without issue. Bowel movement yesterday, denies knowing if blood was present. Catheter in place draining clear yellow urine. Working with PT/OT. Received 80 of lasix this morning from Dr. Rocha. Denies SOB, chest pain, abdominal pain, N/V, F/C and fatigue at this time. Currently on 7-8L HF NC stat 95%. Review of Systems General: No Chills Pulmonary: No Dyspnea, No Pleuritic Chest Pain Neurological: No: Weakness, Numbness Focused Exam Time of Focused Exam: 16:51 Objective Exam Vital Signs Vital Signs Date Time Temp Pulse Resp B/P (MAP) Pulse Ox O2 Delivery O2 Flow Rate FiO2 12/26/20 10:12 93 High Flow N/C 6.00 12/26/20 08:15 36.5 70 22 163/69 (100) 12/23/20 15:54 50 Capillary Refill : Less Than 3 Seconds General Appearance: No Apparent Distress, Chronically ill, Thin HEENT: PERRL/EOMI Neck: Full Range of Motion, Normal Inspection, Non Tender Respiratory: Chest Non Tender, No Accessory Muscle Use, No Respiratory Distress, Crackles (BL) Cardiovascular: Regular Rate, Rhythm, No Edema, Normal Peripheral Pulses Gastrointestinal: Non Tender, Soft Extremity: No Calf Tenderness Neurologic/Psychiatric: Alert, Oriented x3, 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 Skin: Normal Color, Warm/Dry Lymphatic: No Adenopathy Results/Procedures Lab Laboratory Tests 12/26/20 05:37 Patient resulted labs reviewed. Imaging: Reviewed Imaging Report Assessment/Plan Assessment and Plan Assess & Plan/Chief Complaint Acute on chronic respiratory failure Pneumonia- severe sepsis POA now resolved COPD Continue on Cefepime and Antifungal (added by Dr. Rocha 12/25/2020) Now on nasal cannula currently 7-8L, baseline is 6L at home. (improving previous was 9L) Pulm consulted, appreciate recs (80 lasix this morning per Dr. Rocha) Continue Steroids COVID PCR negative CXR on 12/24: stable severe pulmonary infiltrates Anemia History of GI bleed Hold anticoagulation Hgb stable (last transfusion was 12/22, HgB 9.7 (9.3,8.8)) Surgery Consulted (EGD on 12/19 shows mild gastritis) FOBT +, may need colonoscopy at some point if he continues to drop his H&H Trend H/H pAF HTN HLD Hold anticoagulation BP well controlled Appreciate Cardiology's Assistance NIDDMII Hold metformin SSI DVT ppx: SCDs only Patient is participating in PT/OT and will be going to rehab. Received more lasix this morning. Will keep catheter in another day and re-access discontinuing tomorrow. LAURA HARRISON DO 12/27/20 0536: Subjective Subjective/Events-last exam Pt doing a lot better Inpatient rehab tomorrow Cefepime and Eraxis maintained Blood sugar 69 Catheter will remain because he just received some Lasix Crackles in the lungs remain Hgb 9.7 Review of Systems General: Fatigue, Malaise Pulmonary: Dyspnea Objective Exam General Appearance: No Apparent Distress, WD/WN, Chronically ill Respiratory: No Accessory Muscle Use, No Respiratory Distress, Crackles (BL) Cardiovascular: Regular Rate, Rhythm Neurologic/Psychiatric: Alert, Oriented x3, No Motor/Sensory Deficits, 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 Assessment/Plan Assessment and Plan Assess & Plan/Chief Complaint Monitor BP O2 evaluation IRF Supervisory-Addendum Brief Verification & Attestation Participated in pt care: history, MDM, physical Personally performed: exam, history, MDM, supervision of care Care discussed with: Medical Student Procedures: n/a Results interpretation: Verified all documentation Verification and Attestation of Medical Student E/M Service A medical student performed and documented this service in my presence. I reviewed and verified all information documented by the medical student and made modifications to such information, when appropriate. I personally performed the physical exam and medical decision making. Laura Harrison, Dec 27, 2020,05:35 [facility] Dec 26, 2020 11:16 LAURA HARRISON DO Dec 27, 2020 05:36
--- NOTE | 2020-12-26 11:51 | Cardiology Progress Note ---
Subjective Date Seen by Provider: Dec 26, 2020 Time Seen by Provider: 11:50 Subjective/Events-last exam patient is laying down in bed, feeling better today. Breathing slightly better, still requiring 6 L of oxygen Review of Systems General: No Chills, No Night Sweats; Fatigue, Malaise; No Appetite, No Other HEENT: No Head Aches, No Visual Changes, No Eye Pain, No Ear Pain, No Dysphasia, No Sinus Congestion, No Post Nasal Drip, No Sore Throat, No Other Pulmonary: Dyspnea; No Cough, No Pleuritic Chest Pain, No Other Cardiovascular: No: Chest Pain, Palpitations, Orthopnea, Paroxysmal Noc. Dyspnea, Edema, Lt Headedness, Other Focused Exam Time of Focused Exam: 16:51 Objective-Cardiology Exam Last Set of Vital Signs Vital Signs 12/23/20 12/26/20 12/26/20 15:54 08:15 10:12 Temp 36.5 Pulse 70 Resp 22 B/P (MAP) 163/69 (100) Pulse Ox 93 O2 Delivery High Flow N/C O2 Flow Rate 6.00 FiO2 50 Capillary Refill : Less Than 3 Seconds I&O Intake and Output 12/26/20 00:00 Intake Total 2140 ml Output Total 2150 ml Balance -10 ml Intake Oral 1880 ml IV Total 260 ml Output Urine Total 2150 ml # Bowel Movements 1 General: Alert, Oriented X3, Cooperative HEENT: Atraumatic, PERRLA Neck: Supple, No JVD, No Thyromegaly Lungs: Normal Air Movement, Other (bilateral rhonchi) Heart: Normal S1, Normal S2, No Murmurs, Other (and irregular) Abdomen: Normal Bowel Sounds, Soft, No Tenderness, No Hepatosplenomegaly, No Masses Extremities: No Clubbing, No Cyanosis, No Edema, Normal Pulses, No Tenderness/Swelling Skin: No Rashes, No Breakdown, No Significant Lesion Neuro: Normal Gait, Normal Speech, Strength at 5/5 X4 Ext, Normal Tone, Sensation Intact Psych/Mental Status: Mental Status NL, Mood NL Results Lab Laboratory Tests 12/26/20 05:37 A/P-Cardiology Admission Diagnosis Acute respiratory failure Pneumonia Anemia Paroxysmal atrial fibrillation Assessment/Plan Acute respiratory failure, pneumonia, currently on nasal cannula, maintaining adequate oxygenation, improving slowly. 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 Patient had initial workup at hospital in [place]. MRI of the head showed subacute infarct, patient is maintained on Eliquis, continue to hold all anticoagulation due to the GI bleed History of syncope, patient had tilt table test which revealed severe dizziness and hypotension back in February 2013. Reports improvement, no further episodes of syncope after increasing salt and fluid intake. Hypertension, monitor blood pressure Hyperlipidemia, monitor lipids Diabetes mellitus, followed and managed by Dr. Howe, seen during the hospitalization with Dr. Bedoya Bilateral moderate carotid stenosis, 40-59 percent per most recent carotid duplex done December 2019, continue to monitor. Dysphagia, Zenker diverticulum, status post Zenker diverticulum surgery done by Dr. Estrada. CRISS FOSTER MD Dec 26, 2020 11:50
--- NOTE | 2020-12-26 14:10 | Occupational Ther Daily Note ---
OT Current Status-Daily Note Subjective No pain reported. Mental Status/Objective Patient Orientation: Person, Place, Time, Situation Attachments: Kohler Catheter, Oxygen ADL-Treatment Therapy Code Descriptions/Definitions Functional [place] Measure: 0=Not Assessed/NA 4=Minimal Assistance 1=Total Assistance 5=Supervision or Setup 2=Maximal Assistance 6=Modified [place] 3=Moderate Assistance 7=Complete IndependenceSCALE: Activities may be completed with or without assistive devices. 1-Rtigwgnwce-tbfvoai completes the activity by him/herself with no assistance from a helper. 5-Set-up or Clean-up Assistance-helper sets up or cleans up; patient completes activity. [place] assists only prior to or following the activity. 4-Supervision or Touching Assistance-helper provides verbal cues and/or touching/steadying and/or contact guard assistance as patient completes activity. Assistance may be provided throughout the activity or intermittently. 3-Partial/Moderate Assistance-helper does LESS THAN HALF the effort. [place] lifts, holds or supports trunk or limbs, but provides less than half the effort. 2-Substantial/Maximal Assistance-helper does MORE THAN HALF the effort. [place] lifts or holds trunk or limbs and provides more than half the effort. 3-Zhxdywhte-kgctje does ALL the effort. Patient does none of the effort to complete the activity. Or, the assistance of 2 or more helpers is required for the patient to complete the activity. If activity was not attempted, code reason: 7-Patient Refused. 9-Not Applicable-not attempted and the patient did not perform the activity before the current illness, exacerbation or injury. 10-Not Attempted due to Environmental Limitations-(lack of equipment, weather restraints, etc.). 88-Not Attempted due to Medical Conditions or Safety Concerns. Shower/Bathe Self (QC): 3 On/Off Footwear: 2 Other Treatment Pt. agrees to sponge bathe at EOB, declining shower at this time. Pt. transfers supine-sit with SBA. He is able to wash self, including kennedy area in stance with SBA using walker. OT washes bilateral feet. OT dons clean slipper socks, as pt. is unable to do so. Pt. dons fresh gown. OT cleans pt's glasses. Pt. transfers back supine with SBA. All needs met. Education OT Patient Education: Correct positioning, Modified ADL techniques, Progress toward Goal/Update tx plan, Purpose of tx/functional activities, Reviewed precautions, Rehab process, Transfer techniques Teaching Recipient: Patient Teaching Methods: Demonstration, Discussion Response to Teaching: Verbalize Understanding, Return Demonstration OT Short Term Goals Short Term Goals Time Frame: Jan 01, 2021 Eatin Oral hygiene: 4 Toileting hygiene: 4 Shower/bathe self: 3 Upper body dressin Lower body dressin Putting on/taking off footwear: 3 (With AE) OT Alf Goals Alf Goals Time Frame: Jan 08, 2021 Eating (QC): 6 Oral Hygiene (QC): 6 Toileting Hygiene (QC): 6 Shower/Bathe Self (QC): 4 Upper Body Dressing (QC): 6 Lower Body Dressing (QC): 6 On/Off Footwear (QC): 5 (Set up with AE) Additional Goals: 1-Demonstrate ADL Tasks, 2-Verbalize Understanding, 3- ImproveStrength/Jennifer 1=Demonstrate adherence to instructed precautions during ADL tasks. 2=Patient will verbalize/demonstrate understanding of assistive devices/modifica tions for ADL. 3=Patient will improve strength/tolerance for activity to enable patient to perform ADL's. OT Education/Plan Problem List/Assessment Assessment: Decreased Activ Tolerance, Impaired I ADL's, Impaired Self-Care Skills Discharge Recommendations Plan/Recommendations: Continue POC Therapy Discharge Recommendati: Post Acute OT Equpiment Recommendations-D/C: Hip Kit Treatment Plan/Plan of Care Treatment,Training & Education: Yes Patient would benefit from OT for education, treatment and training to promote independence in ADL's, mobility, safety and/or upper extremity function for ADL's. Plan of Care: ADL Retraining, Functional Mobility, UE Funct Exercise/Act Treatment Duration: Jan 08, 2021 Frequency: 5 times per week Estimated Hrs Per Day: .25 hour per day Agreement: Yes Rehab Potential: Good Time/GCodes Start Time: 11:15 Stop Time: 11:31 Total Time Billed (hr/min): 16 Billed Treatment Time 1, ADL CLAUDIA KERNS OT Dec 26, 2020 14:10
[2020-12-26] MEDS: MELATONIN 3 MG TABLET PO SCH (20:49)
[2020-12-27] MEDS: CEFEPIME INJECTION 1,000 MG in WATER (STERILE) FOR INJECTION 10 ML IV SCH ×2 (00:24→08:07)
[2020-12-27] MEDS: RT-ALBUTEROL INHALER HFA (VENTOLIN HFA) 18 GM IH SCH ×2 (02:29→07:25)
[2020-12-27 05:44] LABS: BASOPHILS % (AUTO) 0 % (0-10); EOSINOPHILS # (AUTO) 0.2 10^3/uL (0.0-0.3); EOSINOPHILS % (AUTO) 1 % (0-10); HEMATOCRIT 30 % (40-54); HEMOGLOBIN 9.6 g/dL (13.3-17.7); LYMPHOCYTES # (AUTO) 1.7 10^3/uL (1.0-4.0); LYMPHOCYTES % (AUTO) 12 % (12-44); MEAN CORPUSCULAR HEMOGLOBIN 28 pg (25-34); MEAN CORPUSCULAR HGB CONC 32 g/dL (32-36); MEAN CORPUSCULAR VOLUME 86 fL (80-99); MEAN PLATELET VOLUME 9.7 fL (9.0-12.2); MONOCYTES # (AUTO) 1.4 10^3/uL (0.0-1.0); MONOCYTES % (AUTO) 9 % (0-12); NEUTROPHILS # (AUTO) 11.3 10^3/uL (1.8-7.8); NEUTROPHILS % (AUTO) 77 % (42-75); PLATELET COUNT 329 10^3/uL (130-400); WHITE BLOOD COUNT 14.6 10^3/uL (4.3-11.0)
--- NOTE | 2020-12-27 05:48 | Discharge Summary ---
Diagnosis/Chief Complaint Date of Admission Dec 19, 2020 at 17:30 Date of Discharge Discharge Date: Dec 27, 2020 Discharge Diagnosis Acute on chronic respiratory failure Pneumonia- severe sepsis POA now resolved COPD Continue on Cefepime and Antifungal (added by Dr. Rocha 12/25/2020) Now on nasal cannula currently 7-8L, baseline is 6L at home. (improving previous was 9L) Pulm consulted, appreciate recs (80 lasix this morning per Dr. Rocha) Continue Steroids COVID PCR negative CXR on 12/24: stable severe pulmonary infiltrates Anemia History of GI bleed Hold anticoagulation Hgb stable (last transfusion was 12/22, HgB 9.7 (9.3,8.8)) Surgery Consulted (EGD on 12/19 shows mild gastritis) FOBT +, may need colonoscopy at some point if he continues to drop his H&H Trend H/H pAF HTN HLD Hold anticoagulation BP well controlled Appreciate Cardiology's Assistance NIDDMII Hold metformin SSI Discharge Summary Discharge Physical Examination Allergies: Coded Allergies: No Known Drug Allergies (Unverified , 06/15/20) Vitals & I&Os Vital Signs Date Time Temp Pulse Resp B/P (MAP) Pulse Ox O2 Delivery O2 Flow Rate FiO2 12/27/20 08:00 36.6 72 18 145/65 (91) 91 High Flow N/C 6.00 12/23/20 15:54 50 General Appearance: Alert, Oriented X3, Cooperative Psych/Mental Status: Mental Status NL Hospital Course Was the Problem List Reviewed?: Yes Hospital course: Pt had an uneventful hospital course although it was lengthy, he was admitted for pneumonia, sepsis and acute on-chronic respiratory failure with hypoxia, he was placed on appropriate antibiotics, cardiology was consulted and he did experience a GI bleed, we held oral anticoagulants and he gradually improved, definitely needed more strength, he was sent to the inpatient rehab for further recovery and he will complete his antibiotics there and we will discontinue the catheter to make sure he has no issues with retention and he was discharged in improved condition. Labs (last 24 hrs) Laboratory Tests 12/19/20 15:00: Coronavirus (COVID-19)(PCR) Negative 12/19/20 15:58: Coronavirus 2019 (BREANNA) Negative 12/19/20 15:59: Blood Gas Puncture Site L WRIST, Blood Gas Patient Temperature 97.4, Arterial Blood pH 7.47H, Arterial Blood Partial Pressure CO2 32L, Arterial Blood Partial Pressure O2 51L, Arterial Blood HCO3 23, Arterial Blood Total CO2 23.9, Arterial Blood Oxygen Saturation 88L, Arterial Blood Base Excess -0.4, Richard Test YES- POS, Blood Gas Ventilator Setting NO, Blood Gas Inspired Oxygen 5L 12/19/20 16:10: White Blood Count 12.4H, Red Blood Count 2.90L, Hemoglobin 8.1L, Hematocrit 26L, Mean Corpuscular Volume 89, Mean Corpuscular Hemoglobin 28, Mean Corpuscular Hemoglobin Concent 32, Red Cell Distribution Width 15.4H, Platelet Count 396, Mean Platelet Volume 9.6, Immature Granulocyte % (Auto) 0, Neutrophils (%) (Auto) 83H, Lymphocytes (%) (Auto) 6L, Monocytes (%) (Auto) 10, Eosinophils (%) (Auto) 0, Basophils (%) (Auto) 0, Neutrophils # (Auto) 10.3H, Lymphocytes # (Auto) 0.7L, Monocytes # (Auto) 1.3H, Eosinophils # (Auto) 0.0, Basophils # (Auto) 0.0, Immature Granulocyte # (Auto) 0.1, Neutrophils % (Manual) 80, Lymphocytes % (Manual) 7, Monocytes % (Manual) 10, Eosinophils % (Manual) 3, Anisocytosis MARKED, Gerard Cells SLIGHT, Acanthocytes MODERATE, Blood Morphology Comment NA, Prothrombin Time 18.9H, INR Comment 1.5H, Activated Partial Thromboplast Time 37H, D-Dimer 1.17H, Sodium Level 133L, Potassium Level 4.7, Chloride Level 98, Carbon Dioxide Level 20L, Anion Gap 15H, Blood Urea Nitrogen 26H, Creatinine 0.76, Estimat Glomerular Filtration Rate > 60, BUN/Creatinine Ratio 34, Glucose Level 117H, Lactic Acid Level 3.68*H, Calcium Level 8.5, Corrected Calcium 9.0, Total Bilirubin 0.8, Aspartate Amino Transf (AST/SGOT) 60H, Alanine Aminotransferase (ALT/SGPT) 68H, Alkaline Phosphatase 108, Total Protein 6.4, Albumin 3.4 12/19/20 18:34: Lactic Acid Level 1.14 12/20/20 03:49: White Blood Count 9.1, Red Blood Count 2.51L, Hemoglobin 7.1L, Hematocrit 22L, Mean Corpuscular Volume 86, Mean Corpuscular Hemoglobin 28, Mean Corpuscular Hemoglobin Concent 33, Red Cell Distribution Width 15.9H, Platelet Count 413H, Mean Platelet Volume 10.4, Immature Granulocyte % (Auto) 0, Neutrophils (%) (Auto) 78H, Lymphocytes (%) (Auto) 10L, Monocytes (%) (Auto) 11, Eosinophils (%) (Auto) 1, Basophils (%) (Auto) 1, Neutrophils # (Auto) 7.0, Lymphocytes # (Auto) 0.9L, Monocytes # (Auto) 1.0, Eosinophils # (Auto) 0.1, Basophils # (Auto) 0.1, Immature Granulocyte # (Auto) 0.0, Sodium Level 131L, Potassium Level 5.4H, Chloride Level 100, Carbon Dioxide Level 22, Anion Gap 9, Blood Urea Nitrogen 18, Creatinine 0.67, Estimat Glomerular Filtration Rate > 60, BUN/Creatinine Ratio 27, Glucose Level 76, Calcium Level 8.1L, Corrected Calcium 9.1, Phosphorus Level 3.2, Magnesium Level 1.8, Total Bilirubin 0.8, Aspartate Amino Transf (AST/SGOT) 84H, Alanine Aminotransferase (ALT/SGPT) 64H, Alkaline Phosphatase 88, Total Protein 6.6, Albumin 2.8L 12/20/20 05:33: White Blood Count 9.0, Red Blood Count 2.32L, Hemoglobin 6.5*L, Hematocrit 20*L, Mean Corpuscular Volume 87, Mean Corpuscular Hemoglobin 28, Mean Corpuscular Hemoglobin Concent 32, Red Cell Distribution Width 15.6H, Platelet Count 345, Mean Platelet Volume 9.6, Immature Granulocyte % (Auto) 0, Neutrophils (%) (Auto) 80H, Lymphocytes (%) (Auto) 8L, Monocytes (%) (Auto) 10, Eosinophils (%) (Auto) 1, Basophils (%) (Auto) 1, Neutrophils # (Auto) 7.2, Lymphocytes # (Auto) 0.7L, Monocytes # (Auto) 0.9, Eosinophils # (Auto) 0.1, Basophils # (Auto) 0.1, Immature Granulocyte # (Auto) 0.0, Sodium Level 132L, Potassium Level 4.1, Chloride Level 101, Carbon Dioxide Level 22, Anion Gap 9, Blood Urea Nitrogen 16, Creatinine 0.66, Estimat Glomerular Filtration Rate > 60, BUN/Creatinine Ratio 24, Glucose Level 79, Calcium Level 8.5, Corrected Calcium 9.5, Total Bilirubin 0.8, Aspartate Amino Transf (AST/SGOT) 56H, Alanine Aminotransferase (ALT/SGPT) 59H, Alkaline Phosphatase 84, Total Protein 5.5L, Albumin 2.7L, B- Type Natriuretic Peptide 642.1H, Procalcitonin 0.30H 12/20/20 06:33: Iron Level 16L, Total Iron Binding Capacity 191L, Unsaturated Iron Binding Capacity 175, Transferrin % Saturation 8L, Ferritin 486.5H 12/20/20 10:12: Glucometer 160H 12/20/20 13:56: White Blood Count 6.7, Red Blood Count 3.32L, Hemoglobin 9.2#L, Hematocrit 29L, Mean Corpuscular Volume 86, Mean Corpuscular Hemoglobin 28, Mean Corpuscular Hemoglobin Concent 32, Red Cell Distribution Width 15.1H, Platelet Count 404H, Mean Platelet Volume 9.5, Immature Granulocyte % (Auto) 1, Neutrophils (%) (Auto) 95H, Lymphocytes (%) (Auto) 3L, Monocytes (%) (Auto) 1, Eosinophils (%) (Auto) 0, Basophils (%) (Auto) 0, Neutrophils # (Auto) 6.4, Lymphocytes # (Auto) 0.2L, Monocytes # (Auto) 0.0, Eosinophils # (Auto) 0.0, Basophils # (Auto) 0.0, Immature Granulocyte # (Auto) 0.0, Sodium Level 133L, Potassium Level 3.7, Chloride Level 96L, Carbon Dioxide Level 27, Anion Gap 10, Blood Urea Nitrogen 18, Creatinine 0.74, Estimat Glomerular Filtration Rate > 60, BUN/Creatinine Ratio 24, Glucose Level 160H, Calcium Level 8.8 12/20/20 16:15: Glucometer 188H 12/20/20 20:11: Glucometer 164H 12/21/20 02:55: White Blood Count 7.9, Red Blood Count 2.94L, Hemoglobin 8.2L, Hematocrit 25L, Mean Corpuscular Volume 85, Mean Corpuscular Hemoglobin 28, Mean Corpuscular Hemoglobin Concent 33, Red Cell Distribution Width 15.0H, Platelet Count 365, Mean Platelet Volume 9.6, Immature Granulocyte % (Auto) 0, Neutrophils (%) (Auto) 91H, Lymphocytes (%) (Auto) 6L, Monocytes (%) (Auto) 3, Eosinophils (%) (Auto) 0, Basophils (%) (Auto) 0, Neutrophils # (Auto) 7.2, Lymphocytes # (Auto) 0.4L, Monocytes # (Auto) 0.2, Eosinophils # (Auto) 0.0, Basophils # (Auto) 0.0, Immature Granulocyte # (Auto) 0.0, Sodium Level 132L, Potassium Level 3.6, Chloride Level 96L, Carbon Dioxide Level 23, Anion Gap 13, Blood Urea Nitrogen 21H, Creatinine 0.76, Estimat Glomerular Filtration Rate > 60, BUN/Creatinine Ratio 28, Glucose Level 146H, Calcium Level 8.4L, Phosphorus Level 4.1, Magnesium Level 1.8 12/21/20 10:00: Stool Occult Blood Immunoassay POSITIVE 12/21/20 11:54: Glucometer 124H 12/21/20 16:35: Glucometer 128H 12/21/20 20:27: Glucometer 169H 12/22/20 03:24: White Blood Count 13.5H, Red Blood Count 2.76L, Hemoglobin 7.7L, Hematocrit 24L, Mean Corpuscular Volume 86, Mean Corpuscular Hemoglobin 28, Mean Corpuscular Hemoglobin Concent 33, Red Cell Distribution Width 15.6H, Platelet Count 346, Mean Platelet Volume 9.8, Immature Granulocyte % (Auto) 1, Neutrophils (%) (Auto) 91H, Lymphocytes (%) (Auto) 4L, Monocytes (%) (Auto) 5, Eosinophils (%) (Auto) 0, Basophils (%) (Auto) 0, Neutrophils # (Auto) 12.2H, Lymphocytes # (Auto) 0.6L, Monocytes # (Auto) 0.6, Eosinophils # (Auto) 0.0, Basophils # (Auto) 0.0, Immature Granulocyte # (Auto) 0.1, Sodium Level 132L, Potassium Leve l 4.2, Chloride Level 100, Carbon Dioxide Level 23, Anion Gap 9, Blood Urea Nitrogen 26H, Creatinine 0.73, Estimat Glomerular Filtration Rate > 60, BUN/Creatinine Ratio 36, Glucose Level 139H, Calcium Level 8.2L, Phosphorus Level 3.5, Magnesium Level 1.9, B-Type Natriuretic Peptide 606.5H, Procalcitonin 0.14H 12/22/20 11:47: Glucometer 195H 12/22/20 14:10: Hemoglobin 9.4#L, Hematocrit 29L 12/22/20 16:43: Glucometer 104 12/22/20 20:32: Glucometer 250H 12/22/20 20:34: Glucometer 253H 12/22/20 22:55: Glucometer 235H 12/23/20 02:23: White Blood Count 12.4H, Red Blood Count 3.18L, Hemoglobin 8.8L, Hematocrit 27L, Mean Corpuscular Volume 85, Mean Corpuscular Hemoglobin 28, Mean Corpuscular Hemoglobin Concent 33, Red Cell Distribution Width 15.3H, Platelet Count 341, Mean Platelet Volume 9.8, Immature Granulocyte % (Auto) 1, Neutrophils (%) (Auto) 93H, Lymphocytes (%) (Auto) 3L, Monocytes (%) (Auto) 3, Eosinophils (%) (Auto) 0, Basophils (%) (Auto) 0, Neutrophils # (Auto) 11.5H, Lymphocytes # (Auto) 0.4L, Monocytes # (Auto) 0.4, Eosinophils # (Auto) 0.0, Basophils # (Auto) 0.0, Immature Granulocyte # (Auto) 0.1, Sodium Level 133L, Potassium Level 4.2, Chloride Level 97L, Carbon Dioxide Level 26, Anion Gap 10, Blood Urea Nitrogen 28H, Creatinine 0.71, Estimat Glomerular Filtration Rate > 60, BUN/Creatinine Ratio 39, Glucose Level 127H, Calcium Level 8.2L, Phosphorus Level 3.1, Magnesium Level 1.9 12/23/20 11:33: Glucometer 162H 12/23/20 16:31: Glucometer 132H 12/23/20 20:04: Glucometer 181H 12/24/20 02:50: White Blood Count 16.2H, Red Blood Count 3.15L, Hemoglobin 8.8L, Hematocrit 27L, Mean Corpuscular Volume 86, Mean Corpuscular Hemoglobin 28, Mean Corpuscular Hemoglobin Concent 33, Red Cell Distribution Width 15.6H, Platelet Count 325, Mean Platelet Volume 9.6, Immature Granulocyte % (Auto) 1, Neutrophils (%) (Auto) 85H, Lymphocytes (%) (Auto) 6L, Monocytes (%) (Auto) 9, Eosinophils (%) (Auto) 0, Basophils (%) (Auto) 0, Neutrophils # (Auto) 13.7H, Lymphocytes # (Auto) 0.9L, Monocytes # (Auto) 1.4H, Eosinophils # (Auto) 0.0, Basophils # (Auto) 0.0, Immature Granulocyte # (Auto) 0.1, Sodium Level 134L, Potassium Level 4.4, Chloride Level 97L, Carbon Dioxide Level 27, Anion Gap 10, Blood Urea Nitrogen 31H, Creatinine 0.73, Estimat Glomerular Filtration Rate > 60, BUN/Creatinine Ratio 42, Glucose Level 108H, Calcium Level 7.9L, Phosphorus Level 2.7, Magnesium Level 1.9 12/24/20 11:29: Glucometer 129H 12/24/20 15:46: Glucometer 226H 12/24/20 20:29: Glucometer 125H 12/25/20 05:02: White Blood Count 14.7H, Red Blood Count 3.35L, Hemoglobin 9.3L, Hematocrit 29L, Mean Corpuscular Volume 87, Mean Corpuscular Hemoglobin 28, Mean Corpuscular Hemoglobin Concent 32, Red Cell Distribution Width 15.8H, Platelet Count 340, Mean Platelet Volume 9.8, Immature Granulocyte % (Auto) 1, Neutrophils (%) (Auto) 80H, Lymphocytes (%) (Auto) 9L, Monocytes (%) (Auto) 10, Eosinophils (%) (Auto) 1, Basophils (%) (Auto) 0, Neutrophils # (Auto) 11.7H, Lymphocytes # (Auto) 1.3, Monocytes # (Auto) 1.4H, Eosinophils # (Auto) 0.1, Basophils # (Auto) 0.0, Immature Granulocyte # (Auto) 0.1, Neutrophils % (Manual) 76, Lymphocytes % (Manual) 14, Monocytes % (Manual) 8, Atypical Lymphocytes 2, Hypochromasia SLIGHT, Poikilocytosis SLIGHT, Anisocytosis SLIGHT, Gerard Cells SLIGHT, Elliptocytes SLIGHT, Acanthocytes SLIGHT, Sodium Level 134L, Potassium Level 4.3, Chloride Level 98, Carbon Dioxide Level 27, Anion Gap 9, Blood Urea Nitrogen 26H, Creatinine 0.69, Estimat Glomerular Filtration Rate > 60, BUN/Creatinine Ratio 38, Glucose Level 70, Calcium Level 8.1L, B-Type Natriuretic Peptide 477.2H, Procalcitonin 0.15H 12/25/20 10:55: Glucometer 261H 12/25/20 12:46: Lab Scanned Report Transfusion Reaction Form 12/25/20 15:52: Glucometer 131H 12/25/20 20:22: Glucometer 164H 12/26/20 05:18: Glucometer 69L 12/26/20 05:37: White Blood Count 12.6H, Red Blood Count 3.46L, Hemoglobin 9.7L, Hematocrit 30L, Mean Corpuscular Volume 88, Mean Corpuscular Hemoglobin 28, Mean Corpuscular Hemoglobin Concent 32, Red Cell Distribution Width 15.9H, Platelet Count 332, Mean Platelet Volume 9.9, Immature Granulocyte % (Auto) 1, Neutrophils (%) (Auto) 77H, Lymphocytes (%) (Auto) 11L, Monocytes (%) (Auto) 9, Eosinophils (%) (Auto) 3, Basophils (%) (Auto) 0, Neutrophils # (Auto) 9.6H, Lymphocytes # (Auto) 1.4, Monocytes # (Auto) 1.2H, Eosinophils # (Auto) 0.3, Basophils # (Auto) 0.0, Immature Granulocyte # (Auto) 0.1, Sodium Level 134L, Potassium Level 4.3, Chloride Level 97L, Carbon Dioxide Level 30, Anion Gap 7, Blood Urea Nitrogen 24H, Creatinine 0.79, Estimat Glomerular Filtration Rate > 60, BUN/Creatinine Ratio 30, Glucose Level 80, Calcium Level 8.2L, Corrected Calcium 9.2, Total Bilirubin 0.8, Aspartate Amino Transf (AST/SGOT) 33, Alanine Aminotransferase (ALT/SGPT) 77H, Alkaline Phosphatase 71, Total Protein 5.6L, Albumin 2.8L 12/26/20 11:44: Glucometer 148H 12/26/20 15:57: Glucometer 181H 12/26/20 20:32: Glucometer 149H 12/27/20 05:17: White Blood Count 14.6H, Red Blood Count 3.48L, Hemoglobin 9.6L, Hematocrit 30L, Mean Corpuscular Volume 86, Mean Corpuscular Hemoglobin 28, Mean Corpuscular Hemoglobin Concent 32, Red Cell Distribution Width 16.0H, Platelet Count 329, Mean Platelet Volume 9.7, Immature Granulocyte % (Auto) 1, Neutrophils (%) (Auto) 77H, Lymphocytes (%) (Auto) 12, Monocytes (%) (Auto) 9, Eosinophils (%) (Auto) 1, Basophils (%) (Auto) 0, Neutrophils # (Auto) 11.3H, Lymphocytes # (Auto) 1.7, Monocytes # (Auto) 1.4H, Eosinophils # (Auto) 0.2, Basophils # (Auto) 0.0, Immature Granulocyte # (Auto) 0.1, Sodium Level 133L, Potassium Level 4.5, Chloride Level 96L, Carbon Dioxide Level 29, Anion Gap 8, Blood Urea Nitrogen 29H, Creatinine 0.88, Estimat Glomerular Filtration Rate > 60, BUN/Creatinine Ratio 33, Glucose Level 73, Calcium Level 8.2L Microbiology 12/20/20 MRSA Screen - Final, Complete MRSA not isolated 12/19/20 Blood Culture - Final, Complete No growth Pending Labs Microbiology Date/Time Source Procedure Growth Status 12/20/20 00:00 Nasal MRSA Screen - Final MRSA not isolated Complete 12/19/20 16:19 Peripheral Lt Hand Blood Culture - Final No growth Complete 12/19/20 16:10 Peripheral Right Wrist Blood Culture - Final No growth Complete 12/19/20 15:58 Nasopharynx Influenza Types A,B Antigen (CONOR) - Final Complete Laboratory Tests 12/19/20 15:00: Coronavirus (COVID-19)(PCR) Negative 12/19/20 15:58: Coronavirus 2019 (BREANNA) Negative 12/19/20 15:59: Blood Gas Puncture Site L WRIST, Blood Gas Patient Temperature 97.4, Arterial Blood pH 7.47, Arterial Blood Partial Pressure CO2 32, Arterial Blood Partial Pressure O2 51, Arterial Blood HCO3 23, Arterial Blood Total CO2 23.9, Arterial Blood Oxygen Saturation 88, Arterial Blood Base Excess -0.4, Richard Test YES-POS, Blood Gas Ventilator Setting NO, Blood Gas Inspired Oxygen 5L 12/19/20 16:10: White Blood Count 12.4, Red Blood Count 2.90, Hemoglobin 8.1, Hematocrit 26, Mean Corpuscular Volume 89, Mean Corpuscular Hemoglobin 28, Mean Corpuscular Hemoglobin Concent 32, Red Cell Distribution Width 15.4, Platelet Count 396, Mean Platelet Volume 9.6, Immature Granulocyte % (Auto) 0, Neutrophils (%) (Auto) 83, Lymphocytes (%) (Auto) 6, Monocytes (%) (Auto) 10, Eosinophils (%) (Auto) 0, Basophils (%) (Auto) 0, Neutrophils # (Auto) 10.3, Lymphocytes # (Auto) 0.7, Monocytes # (Auto) 1.3, Eosinophils # (Auto) 0.0, Basophils # (Auto) 0.0, Immature Granulocyte # (Auto) 0.1, Neutrophils % (Manual) 80, Lymphocytes % (Manual) 7, Monocytes % (Manual) 10, Eosinophils % (Manual) 3, Anisocytosis MARKED, Gerard Cells SLIGHT, Acanthocytes MODERATE, Blood Morphology Comment NA, Prothrombin Time 18.9, INR Comment 1.5, Activated Partial Thromboplast Time 37, D-Dimer 1.17, Sodium Level 133, Potassium Level 4.7, Chloride Level 98, Carbon Dioxide Level 20, Anion Gap 15, Blood Urea Nitrogen 26, Creatinine 0.76, Estimat Glomerular Filtration Rate > 60, BUN/Creatinine Ratio 34, Glucose Level 117, Lactic Acid Level 3.68, Calcium Level 8.5, Corrected Calcium 9.0, Total Bilirubin 0.8, Aspartate Amino Transf (AST/SGOT) 60, Alanine Aminotransferase (ALT/SGPT) 68, Alkaline Phosphatase 108, Total Protein 6.4, Albumin 3.4 12/19/20 18:34: Lactic Acid Level 1.14 12/20/20 03:49: White Blood Count 9.1, Red Blood Count 2.51, Hemoglobin 7.1, Hematocrit 22, Mean Corpuscular Volume 86, Mean Corpuscular Hemoglobin 28, Mean Corpuscular Hemoglobin Concent 33, Red Cell Distribution Width 15.9, Platelet Count 413, Mean Platelet Volume 10.4, Immature Granulocyte % (Auto) 0, Neutrophils (%) (Auto) 78, Lymphocytes (%) (Auto) 10, Monocytes (%) (Auto) 11, Eosinophils (%) (Auto) 1, Basophils (%) (Auto) 1, Neutrophils # (Auto) 7.0, Lymphocytes # (Auto) 0.9, Monocytes # (Auto) 1.0, Eosinophils # (Auto) 0.1, Basophils # (Auto) 0.1, Immature Granulocyte # (Auto) 0.0, Sodium Level 131, Potassium Level 5.4, Chloride Level 100, Carbon Dioxide Level 22, Anion Gap 9, Blood Urea Nitrogen 18, Creatinine 0.67, Estimat Glomerular Filtration Rate > 60, BUN/Creatinine Ratio 27, Glucose Level 76, Calcium Level 8.1, Corrected Calcium 9.1, Phosphorus Level 3.2, Magnesium Level 1.8, Total Bilirubin 0.8, Aspartate Amino Transf (AST/SGOT) 84, Alanine Aminotransferase (ALT/SGPT) 64, Alkaline Phosphatase 88, Total Protein 6.6, Albumin 2.8 12/20/20 05:33: White Blood Count 9.0, Red Blood Count 2.32, Hemoglobin 6.5, Hematocrit 20, Mean Corpuscular Volume 87, Mean Corpuscular Hemoglobin 28, Mean Corpuscular Hemoglobin Concent 32, Red Cell Distribution Width 15.6, Platelet Count 345, Mean Platelet Volume 9.6, Immature Granulocyte % (Auto) 0, Neutrophils (%) (Auto) 80, Lymphocytes (%) (Auto) 8, Monocytes (%) (Auto) 10, Eosinophils (%) (Auto) 1, Basophils (%) (Auto) 1, Neutrophils # (Auto) 7.2, Lymphocytes # (Auto) 0.7, Monocytes # (Auto) 0.9, Eosinophils # (Auto) 0.1, Basophils # (Auto) 0.1, Immature Granulocyte # (Auto) 0.0, Sodium Level 132, Potassium Level 4.1, Chloride Level 101, Carbon Dioxide Level 22, Anion Gap 9, Blood Urea Nitrogen 16, Creatinine 0.66, Estimat Glomerular Filtration Rate > 60, BUN/Creatinine Ratio 24, Glucose Level 79, Calcium Level 8.5, Corrected Calcium 9.5, Total Bilirubin 0.8, Aspartate Amino Transf (AST/SGOT) 56, Alanine Aminotransferase (ALT/SGPT) 59, Alkaline Phosphatase 84, Total Protein 5.5, Albumin 2.7, B-Type Natriuretic Peptide 642.1, Procalcitonin 0.30 12/20/20 06:33: Iron Level 16, Total Iron Binding Capacity 191, Unsaturated Iron Binding Capacity 175, Transferrin % Saturation 8, Ferritin 486.5 12/20/20 10:12: Glucometer 160 12/20/20 13:56: White Blood Count 6.7, Red Blood Count 3.32, Hemoglobin 9.2, Hematocrit 29, Mean Corpuscular Volume 86, Mean Corpuscular Hemoglobin 28, Mean Corpuscular Hemoglobin Concent 32, Red Cell Distribution Width 15.1, Platelet Count 404, Mean Platelet Volume 9.5, Immature Granulocyte % (Auto) 1, Neutrophils (%) (Auto) 95, Lymphocytes (%) (Auto) 3, Monocytes (%) (Auto) 1, Eosinophils (%) (Auto) 0, Basophils (%) (Auto) 0, Neutrophils # (Auto) 6.4, Lymphocytes # (Auto) 0.2, Monocytes # (Auto) 0.0, Eosinophils # (Auto) 0.0, Basophils # (Auto) 0.0, Immature Granulocyte # (Auto) 0.0, Sodium Level 133, Potassium Level 3.7, Chloride Level 96, Carbon Dioxide Level 27, Anion Gap 10, Blood Urea Nitrogen 18, Creatinine 0.74, Estimat Glomerular Filtration Rate > 60, BUN/Creatinine Ratio 24, Glucose Level 160, Calcium Level 8.8 12/20/20 16:15: Glucometer 188 12/20/20 20:11: Glucometer 164 12/21/20 02:55: White Blood Count 7.9, Red Blood Count 2.94, Hemoglobin 8.2, Hematocrit 25, Mean Corpuscular Volume 85, Mean Corpuscular Hemoglobin 28, Mean Corpuscular Hemoglobin Concent 33, Red Cell Distribution Width 15.0, Platelet Count 365, Mean Platelet Volume 9.6, Immature Granulocyte % (Auto) 0, Neutrophils (%) (Auto) 91, Lymphocytes (%) (Auto) 6, Monocytes (%) (Auto) 3, Eosinophils (%) (Auto) 0, Basophils (%) (Auto) 0, Neutrophils # (Auto) 7.2, Lymphocytes # (Auto) 0.4, Monocytes # (Auto) 0.2, Eosinophils # (Auto) 0.0, Basophils # (Auto) 0.0, Immature Granulocyte # (Auto) 0.0, Sodium Level 132, Potassium Level 3.6, Chloride Level 96, Carbon Dioxide Level 23, Anion Gap 13, Blood Urea Nitrogen 21, Creatinine 0.76, Estimat Glomerular Filtration Rate > 60, BUN/Creatinine Ratio 28, Glucose Level 146, Calcium Level 8.4, Phosphorus Level 4.1, Magnesium Level 1.8 12/21/20 10:00: Stool Occult Blood Immunoassay POSITIVE 12/21/20 11:54: Glucometer 124 12/21/20 16:35: Glucometer 128 12/21/20 20:27: Glucometer 169 12/22/20 03:24: White Blood Count 13.5, Red Blood Count 2.76, Hemoglobin 7.7, Hematocrit 24, Mean Corpuscular Volume 86, Mean Corpuscular Hemoglobin 28, Mean Corpuscular Hemoglobin Concent 33, Red Cell Distribution Width 15.6, Platelet Count 346, Mean Platelet Volume 9.8, Immature Granulocyte % (Auto) 1, Neutrophils (%) (Auto) 91, Lymphocytes (%) (Auto) 4, Monocytes (%) (Auto) 5, Eosinophils (%) (Auto) 0, Basophils (%) (Auto) 0, Neutrophils # (Auto) 12.2, Lymphocytes # (Auto) 0.6, Monocytes # (Auto) 0.6, Eosinophils # (Auto) 0.0, Basophils # (Auto) 0.0, Immature Granulocyte # (Auto) 0.1, Sodium Level 132, Potassium Level 4.2, Chloride Level 100, Carbon Dioxide Level 23, Anion Gap 9, Blood Urea Nitrogen 26, Creatinine 0.73, Estimat Glomerular Filtration Rate > 60, BUN/Creatinine Ratio 36, Glucose Level 139, Calcium Level 8.2, Phosphorus Level 3.5, Magnesium Level 1.9, B-Type Natriuretic Peptide 606.5, Procalcitonin 0.14 12/22/20 11:47: Glucometer 195 12/22/20 14:10: Hemoglobin 9.4, Hematocrit 29 12/22/20 16:43: Glucometer 104 12/22/20 20:32: Glucometer 250 12/22/20 20:34: Glucometer 253 12/22/20 22:55: Glucometer 235 12/23/20 02:23: White Blood Count 12.4, Red Blood Count 3.18, Hemoglobin 8.8, Hematocrit 27, Mean Corpuscular Volume 85, Mean Corpuscular Hemoglobin 28, Mean Corpuscular Hemoglobin Concent 33, Red Cell Distribution Width 15.3, Platelet Count 341, Mean Platelet Volume 9.8, Immature Granulocyte % (Auto) 1, Neutrophils (%) (Auto) 93, Lymphocytes (%) (Auto) 3, Monocytes (%) (Auto) 3, Eosinophils (%) (Auto) 0, Basophils (%) (Auto) 0, Neutrophils # (Auto) 11.5, Lymphocytes # (Auto) 0.4, Monocytes # (Auto) 0.4, Eosinophils # (Auto) 0.0, Basophils # (Auto) 0.0, Immature Granulocyte # (Auto) 0.1, Sodium Level 133, Potassium Level 4.2, Chloride Level 97, Carbon Dioxide Level 26, Anion Gap 10, Blood Urea Nitrogen 28, Creatinine 0.71, Estimat Glomerular Filtration Rate > 60, BUN/Creatinine Ratio 39, Glucose Level 127, Calcium Level 8.2, Phosphorus Level 3.1, Magnesium Level 1.9 12/23/20 11:33: Glucometer 162 12/23/20 16:31: Glucometer 132 12/23/20 20:04: Glucometer 181 12/24/20 02:50: White Blood Count 16.2, Red Blood Count 3.15, Hemoglobin 8.8, Hematocrit 27, Mean Corpuscular Volume 86, Mean Corpuscular Hemoglobin 28, Mean Corpuscular Hemoglobin Concent 33, Red Cell Distribution Width 15.6, Platelet Count 325, Mean Platelet Volume 9.6, Immature Granulocyte % (Auto) 1, Neutrophils (%) (Auto) 85, Lymphocytes (%) (Auto) 6, Monocytes (%) (Auto) 9, Eosinophils (%) (Auto) 0, Basophils (%) (Auto) 0, Neutrophils # (Auto) 13.7, Lymphocytes # (Auto) 0.9, Monocytes # (Auto) 1.4, Eosinophils # (Auto) 0.0, Basophils # (Auto) 0.0, Immature Granulocyte # (Auto) 0.1, Sodium Level 134, Potassium Level 4.4, Chloride Level 97, Carbon Dioxide Level 27, Anion Gap 10, Blood Urea Nitrogen 31, Creatinine 0.73, Estimat Glomerular Filtration Rate > 60, BUN/Creatinine Ra valentine 42, Glucose Level 108, Calcium Level 7.9, Phosphorus Level 2.7, Magnesium Level 1.9 12/24/20 11:29: Glucometer 129 12/24/20 15:46: Glucometer 226 12/24/20 20:29: Glucometer 125 12/25/20 05:02: White Blood Count 14.7, Red Blood Count 3.35, Hemoglobin 9.3, Hematocrit 29, Mean Corpuscular Volume 87, Mean Corpuscular Hemoglobin 28, Mean Corpuscular Hemoglobin Concent 32, Red Cell Distribution Width 15.8, Platelet Count 340, Mean Platelet Volume 9.8, Immature Granulocyte % (Auto) 1, Neutrophils (%) (Auto) 80, Lymphocytes (%) (Auto) 9, Monocytes (%) (Auto) 10, Eosinophils (%) (Auto) 1, Basophils (%) (Auto) 0, Neutrophils # (Auto) 11.7, Lymphocytes # (Auto) 1.3, Monocytes # (Auto) 1.4, Eosinophils # (Auto) 0.1, Basophils # (Auto) 0.0, Immature Granulocyte # (Auto) 0.1, Neutrophils % (Manual) 76, Lymphocytes % (Manual) 14, Monocytes % (Manual) 8, Atypical Lymphocytes 2, Hypochromasia SLIGHT, Poikilocytosis SLIGHT, Anisocytosis SLIGHT, [place] Cells SLIGHT, Elliptocytes SLIGHT, Acanthocytes SLIGHT, Sodium Level 134, Potassium Level 4.3, Chloride Level 98, Carbon Dioxide Level 27, Anion Gap 9, Blood Urea Nitrogen 26, Creatinine 0.69, Estimat Glomerular Filtration Rate > 60, BUN/Creatinine Ratio 38, Glucose Level 70, Calcium Level 8.1, B-Type Natriuretic Peptide 477.2, Procalcitonin 0.15 12/25/20 10:55: Glucometer 261 12/25/20 12:46: Lab Scanned Report Transfusion Reaction Form 12/25/20 15:52: Glucometer 131 12/25/20 20:22: Glucometer 164 12/26/20 05:18: Glucometer 69 12/26/20 05:37: White Blood Count 12.6, Red Blood Count 3.46, Hemoglobin 9.7, Hematocrit 30, Mean Corpuscular Volume 88, Mean Corpuscular Hemoglobin 28, Mean Corpuscular Hemoglobin Concent 32, Red Cell Distribution Width 15.9, Platelet Count 332, Mean Platelet Volume 9.9, Immature Granulocyte % (Auto) 1, Neutrophils (%) (Auto) 77, Lymphocytes (%) (Auto) 11, Monocytes (%) (Auto) 9, Eosinophils (%) (Auto) 3, Basophils (%) (Auto) 0, Neutrophils # (Auto) 9.6, Lymphocytes # (Auto) 1.4, Monocytes # (Auto) 1.2, Eosinophils # (Auto) 0.3, Basophils # (Auto) 0.0, Immature Granulocyte # (Auto) 0.1, Sodium Level 134, Potassium Level 4.3, Chloride Level 97, Carbon Dioxide Level 30, Anion Gap 7, Blood Urea Nitrogen 24, Creatinine 0.79, Estimat Glomerular Filtration Rate > 60, BUN/Creatinine Ratio 30, Glucose Level 80, Calcium Level 8.2, Corrected Calcium 9.2, Total Bilirubin 0.8, Aspartate Amino Transf (AST/SGOT) 33, Alanine Aminotransferase (ALT/SGPT) 77, Alkaline Phosphatase 71, Total Protein 5.6, Albumin 2.8 12/26/20 11:44: Glucometer 148 12/26/20 15:57: Glucometer 181 12/26/20 20:32: Glucometer 149 12/27/20 05:17: White Blood Count 14.6, Red Blood Count 3.48, Hemoglobin 9.6, Hematocrit 30, Mean Corpuscular Volume 86, Mean Corpuscular Hemoglobin 28, Mean Corpuscular Hemoglobin Concent 32, Red Cell Distribution Width 16.0, Platelet Count 329, Mean Platelet Volume 9.7, Immature Granulocyte % (Auto) 1, Neutrophils (%) (Auto) 77, Lymphocytes (%) (Auto) 12, Monocytes (%) (Auto) 9, Eosinophils (%) (Auto) 1, Basophils (%) (Auto) 0, Neutrophils # (Auto) 11.3, Lymphocytes # (Auto) 1.7, Monocytes # (Auto) 1.4, Eosinophils # (Auto) 0.2, Basophils # (Auto) 0.0, Immature Granulocyte # (Auto) 0.1, Sodium Level 133, Potassium Level 4.5, Chloride Level 96, Carbon Dioxide Level 29, Anion Gap 8, Blood Urea Nitrogen 29, Creatinine 0.88, Estimat Glomerular Filtration Rate > 60, BUN/Creatinine Ratio 33, Glucose Level 73, Calcium Level 8.2 Discharge Home Medications: Active Scripts Active Reported Promethazine-Codeine Solution (Promethazine HCl/Codeine) 473 Ml Syrup 10 Ml PO Q8H PRN [place] Saline Nasal Gel (Sodium Chloride/Aloe Vera) 14.1 Gm Gel..gram. 1 Applic NSEACH PRN PRN [Bethanechol] 25 Tab 25 Mg PO 0700,1200 LAST FILLED 02-17-2020 #360/180 DAY SUPPLY Amiodarone HCl 200 Mg Tablet 200 Mg PO DAILY Diltiazem ER (Diltiazem HCl) 180 Mg Capsule.er 180 Mg PO DAILY Stool Softener (Docusate Sodium) 100 Mg Capsule 100 Mg PO DAILY PRN Pantoprazole Sodium 40 Mg Tablet.dr 40 Mg PO DAILY Metformin HCl ER (Metformin HCl) 500 Mg Tab.er.24h 500 Mg PO 1800 Eliquis (Apixaban) 2.5 Mg Tablet 2.5 Mg PO BID Losartan Potassium 25 Mg Tablet 25 Mg PO HS Albuterol Sulfate 2.5 Mg/3 Ml Vial.neb 2.5 Mg NEB Q6H PRN Alfuzosin HCl ER (Alfuzosin HCl) 10 Mg Tab.er.24h 10 Mg PO DAILY Atorvastatin Calcium 40 Mg Tablet 40 Mg PO HS Instructions to patient/family Please see electronic discharge instructions given to patient. MARY LAMBERT DO Dec 27, 2020 05:48
[2020-12-27 06:04] LABS: CHLORIDE 96 MMOL/L (98-107); POTASSIUM 4.5 MMOL/L (3.6-5.0); SODIUM 133 MMOL/L (135-145)
[2020-12-27 06:05] LABS: CALCIUM 8.2 MG/DL (8.5-10.1); GLUCOSE 73 MG/DL (70-105)
[2020-12-27 06:07] LABS: CARBON DIOXIDE 29 MMOL/L (21-32)
[2020-12-27] MEDS: inSUlin ASPART (NovoLOG) 1 UNIT/0.01 ML (CHARGE PER UNIT) SC SCH (06:07)
[2020-12-27 06:09] LABS: CREATININE SERUM 0.88 MG/DL (0.60-1.30); GFR ESTIMATED > 60
[2020-12-27 06:10] LABS: BUN/CREATININE RATIO 33
[2020-12-27] MEDS: predniSONE 20 MG TAB PO SCH (07:02)
[2020-12-27] MEDS: CATHETER FLUSH 10 ML SYR IV SCH (07:02)
[2020-12-27] MEDS: guaiFENesin (MUCINEX) 600 MG TAB PO SCH (08:06)
[2020-12-27] MEDS: PANTOPRAZOLE 40 MG (PROTONIX) TAB PO SCH (08:06)
[2020-12-27] MEDS: DOCUSATE SODIUM 100 MG (COLACE) CAP PO SCH (08:06)
[2020-12-27] MEDS: ANIDULAFUNGIN INJECTION 100 MG in NS (IVPB) 100 ML IV SCH (08:07)
[2020-12-27] MEDS: KCL 20 MEQ TAB (K-DUR) PO SCH (08:07)
[2020-12-27] MEDS: FUROSEMIDE 40 MG/4 ML INJ (LASIX) IVP SCH (08:07)
--- NOTE | 2020-12-27 08:21 | Pulmonary Progress Note ---
Subjective Time Seen by a Provider: 08:17 Subjective/Events-last exam No complications noted. Sepsis Event Evaluation Height, Weight, BMI Height: 5'7.00" Weight: 140lbs. 0.0oz. 63.135907qm; 21.15 BMI Method:Stated Focused Exam Time of Focused Exam: 16:51 Exam Exam Vital Signs Date Time Temp Pulse Resp B/P (MAP) Pulse Ox O2 Delivery O2 Flow Rate FiO2 12/27/20 07:25 91 High Flow N/C 6.00 12/27/20 04:41 36.5 67 20 156/68 (97) 95 High Flow N/C 6.00 12/27/20 02:29 90 High Flow N/C 6.00 12/27/20 00:20 36.5 70 18 155/77 (103) 96 High Flow N/C 6.00 12/26/20 21:54 92 High Flow N/C 6.00 12/26/20 20:50 High Flow N/C 6.00 12/26/20 20:33 36.7 69 20 165/69 (101) 96 High Flow N/C 6.00 12/26/20 18:46 90 High Flow N/C 6.00 12/26/20 16:00 36.8 63 18 129/60 (83) 98 High Flow N/C 6.00 12/26/20 14:28 94 High Flow N/C 6.00 12/26/20 12:00 35.7 73 20 127/58 (81) 96 High Flow N/C 6.00 12/26/20 10:12 93 High Flow N/C 6.00 I & O 12/27/20 07:00 Intake Total 1340 ml Output Total 2420 ml Balance -1080 ml Height & Weight Height: 5'7.00" Weight: 140lbs. 0.0oz. 63.174805mh; 21.15 BMI Method:Stated General Appearance: No Apparent Distress, WD/WN, Chronically ill HEENT: PERRL/EOMI Neck: Full Range of Motion, Normal Inspection, Non Tender Respiratory: No Accessory Muscle Use, No Respiratory Distress, Crackles (BL) Cardiovascular: Regular Rate, Rhythm Capillary Refill: Less Than 3 Seconds Peripheral Pulses: 2+ Dorsalis Pedis (R), 2+ Left Dors-Pedis (L), 2+ Radial Pulses (R), 2+ Radial Pulses (L) Gastrointestinal: normal bowel sounds, non tender, soft; No distended Extremity: No Calf Tenderness Neurologic/Psychiatric: Alert, Oriented x3, No Motor/Sensory Deficits, 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 Skin: Normal Color, Warm/Dry Lymphatic: No Adenopathy Results Lab Laboratory Tests 12/26/20 05:37 12/27/20 05:17 Assessment/Plan Assessment/Plan Pneumonia with sepsis - no fever -COVID negative - Cefepime and eraxis -Continue lasix -- increase to 80mg for now -Repeat CXR -Prednisone -MRSA swab is negative -Currently on 6 liter NC Acute on chronic respiratory failure Severe oxygen dependent COPD - He uses 6 liters of oxygen at home Duonebs metabolic lactic acidosis - improved Afib - hx Eliquis T2DM SSI HTN HLD BPH Continue home meds BRITTANY BARRIOS DO Dec 27, 2020 08:21
[2020-12-27] MEDS: ACETAMINOPHEN 325 MG TABLET PO PRN (08:52)
--- NOTE | 2020-12-27 10:09 | Diagnostic Imaging Report ---
INDICATION: Shortness of breath. EXAMINATION: Portable chest at 9:37 AM. FINDINGS: There are bilateral pulmonary infiltrates which are predominantly alveolar but some developing interstitial pattern. These appear to be more opaque on the left than on the right. There is relative sparing of the apices in both lungs. There are no effusions. IMPRESSION: The bilateral pulmonary infiltrates have shown a slight interval improvement compared to the previous day. Dictated by: Dictated on workstation # [id number]
--- NOTE | 2020-12-27 12:01 | Progress Note ---
[facility] 12/27/20 1201: Progress Note Hospital Course: Kamran Hernandez was admitted to [facility] on 12/19 and will be discharged to the rehab unit today 12/27/20. Kamran was admitted for ARDS, Pneumonia and Anemia. PMH includes pAF, HTN, HLD, DM, COPD, DVT, CVA and is oxygen dependent at home on 6L. While in the ICU and general floor units of [facility] his acute and chronic conditions were managed by Internal Medicine, which included Dr. Lambert and Dr. Mendosa, Pulmonary Dr. Rocha, Cardiology Dr. Hobson, General Surgery Dr. Esparza and he received RT, PT/OT throughout his admission. Labs showed Hgb of 8.1 with his lowest reaching 6.5, leukocytosis, Lactic acid 3.68, BNP 642, Procalcitonin .30 and elevated liver enzymes. He received multiple CXRs and a EGD study, which showed mild gastritis. He was positive on his stool occult blood test, negative for COVID and Flu. Blood cultures where negative. His treatment course include but was not limited to Vapotherm, IV antibiotics and lasix, medications for gastritis, 2 units of blood and respiratory therapy. His labs have normalized or have reached an acceptable range. His HgB has been stable at 9.6. Recent CXR shows BL pulmonary infiltrate improvement compared to previous studies. The patient will be going to rehab to continue his recovery. He is in stable condition. He is no longer requiring Vapotherm and is currently down to his baseline of 6L. His HgB has stabilized and respiratory status has markedly improved. The following information is only a summary of the patients admissions while at [facility] and is not all inclusive. Please review entire chart for more information. LAURA LAMBERT DO 12/28/20 0500: Supervisory-Addendum Brief Verification & Attestation Participated in pt care: history, MDM, physical Personally performed: exam, history, MDM, supervision of care Care discussed with: Medical Student Procedures: n/a Results interpretation: Verified all documentation Verification and Attestation of Medical Student E/M Service A medical student performed and documented this service in my presence. I reviewed and verified all information documented by the medical student and made modifications to such information, when appropriate. I personally performed the physical exam and medical decision making. Laura Lambert, Dec 28, 2020,05:00 [facility] Dec 27, 2020 12:01 LAURA LAMBERT DO Dec 28, 2020 05:00
--- NOTE | 2020-12-27 12:33 | Cardiology Progress Note ---
Subjective Date Seen by Provider: Dec 27, 2020 Time Seen by Provider: 08:00 Subjective/Events-last exam Patient was seen at bedside, feeling better, breathing better, still on 6 L oxygen but overall reporting improvement Review of Systems General: No Chills, No Night Sweats; Fatigue, Malaise; No Appetite, No Other HEENT: No Head Aches, No Visual Changes, No Eye Pain, No Ear Pain, No Dysphasia, No Sinus Congestion, No Post Nasal Drip, No Sore Throat, No Other Pulmonary: Dyspnea; No Cough, No Pleuritic Chest Pain, No Other Cardiovascular: No: Chest Pain, Palpitations, Orthopnea, Paroxysmal Noc. Dyspnea, Edema, Lt Headedness, Other Focused Exam Time of Focused Exam: 16:51 Objective-Cardiology Exam Last Set of Vital Signs Vital Signs 12/23/20 15:54 FiO2 50 Capillary Refill : Less Than 3 Seconds I&O Intake and Output 12/27/20 00:00 Intake Total 1540 ml Output Total 2795 ml Balance -1255 ml Intake Oral 1400 ml IV Total 140 ml Output Urine Total 2795 ml # Bowel Movements 1 General: Alert, Oriented X3, Cooperative HEENT: Atraumatic, PERRLA Neck: Supple, No JVD, No Thyromegaly Lungs: Normal Air Movement, Other (bilateral rhonchi) Heart: Normal S1, Normal S2, No Murmurs, Other (and irregular) Abdomen: Normal Bowel Sounds, Soft, No Tenderness, No Hepatosplenomegaly, No Masses Extremities: No Clubbing, No Cyanosis, No Edema, Normal Pulses, No Tenderness/Swelling Skin: No Rashes, No Breakdown, No Significant Lesion Neuro: Normal Gait, Normal Speech, Strength at 5/5 X4 Ext, Normal Tone, Sensation Intact Psych/Mental Status: Mental Status NL, Mood NL Results Lab Laboratory Tests 12/27/20 05:17 A/P-Cardiology Admission Diagnosis Acute respiratory failure Pneumonia Anemia Paroxysmal atrial fibrillation Assessment/Plan Acute respiratory failure, pneumonia, currently on nasal cannula, maintaining adequate oxygenation, continue to improve, being transferred today to acute rehabilitation Anemia, status post transfusion one packed RBCs, history of GI bleed and hospitalized in October 2017, 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 Continue to monitor [id number] score of 6, yearly risk of stroke without oral anticoagulation is 9.8 percent, maintained on Eliquis, I will hold for now History of CVA with left facial drooping, left arm weakness. 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 Patient had initial workup at hospital in [place]. MRI of the head showed subacute infarct, patient is maintained on Eliquis, continue to hold all anticoagulation due to the GI bleed History of syncope, patient had tilt table test which revealed severe dizziness and hypotension back in February 2013. Reports improvement, no further episodes of syncope after increasing salt and fluid intake. Hypertension, monitor blood pressure Hyperlipidemia, monitor lipids Diabetes mellitus, followed and managed by Dr. Howe, seen during the hospi talization with Dr. Bedoya Bilateral moderate carotid stenosis, 40-59 percent per most recent carotid duplex done December 2019, continue to monitor. Dysphagia, Zenker diverticulum, status post Zenker diverticulum surgery done by Dr. Estrada. CRISS FOSTER MD Dec 27, 2020 12:33
== END 2020-12-27 09:34 | DRG 871 ==
LOC: EDUNIT# 15:50 → ER 15:51 → CSD 17:30 → ICU 18:13 → 4TH 12-24 10:27
PROVIDERS: ADMIT Family Medicine; ATTEND Internal Medicine
PROC: 0DJ08ZZ Inspection of Upper Intestinal Tract, Via Natural or Artificial Opening Endoscopic (ICD-10-PCS; principal; 2020-12-21 10:31)
DX: A41.9 Sepsis, unspecified organism (principal); J18.9 Pneumonia, unspecified organism; J96.21 Acute and chronic respiratory failure with hypoxia; K29.71 Gastritis, unspecified, with bleeding; J44.0 Chronic obstructive pulmonary disease with (acute) lower respiratory infection; E87.2 Acidosis; K31.5 Obstruction of duodenum; I48.0 Paroxysmal atrial fibrillation; I25.10 Atherosclerotic heart disease of native coronary artery without angina pectoris; Z20.822 Contact with and (suspected) exposure to COVID-19; Z87.891 Personal history of nicotine dependence; I10 Essential (primary) hypertension; N40.0 Benign prostatic hyperplasia without lower urinary tract symptoms; K21.9 Gastro-esophageal reflux disease without esophagitis; K57.90 Diverticulosis of intestine, part unspecified, without perforation or abscess without bleeding; M19.90 Unspecified osteoarthritis, unspecified site; G89.29 Other chronic pain; M54.9 Dorsalgia, unspecified; E11.9 Type 2 diabetes mellitus without complications; L40.9 Psoriasis, unspecified; R65.20 Severe sepsis without septic shock; E87.5 Hyperkalemia; D64.9 Anemia, unspecified; K22.5 Diverticulum of esophagus, acquired; K31.7 Polyp of stomach and duodenum; Z99.81 Dependence on supplemental oxygen; Z86.718 Personal history of other venous thrombosis and embolism; Z86.73 Personal history of transient ischemic attack (TIA), and cerebral infarction without residual deficits
CPT/HCPCS: 36415; 71045; 80048; 80053; 82274; 82728; 82805; 82962; 83540; 83605; 83735; 83880; 84100; 84145; 85007; 85014; 85018; 85025; 85027; 85379; 85610; 85730; 86850; 86900; 86901; 86920; 87040; 87081; 87635; 87804; 94640; 94664; 94760; 99291

== ENCOUNTER 2020-12-27 09:20 | Inpatient (IN) | payer MEDICARE, OTHER ==
[~2020-12-27] VITALS: Ht 167.7 cm; Wt 57.5 kg
[~2020-12-27 09:20] MED LIST changes: +DILT180C82 PO; +PROM473S9 PO; +SODI0.5GEL NSEACH
--- NOTE | 2020-12-27 10:26 | Physical Therapy Evaluation ---
PT Evaluation-General Medical Diagnosis Admission Date Dec 27, 2020 at 09:20 Medical Diagnosis: pneumonia/sepsis/respiratory failure/hypoxia Onset Date: Dec 19, 2020 Therapy Diagnosis Therapy Diagnosis: impaired mobility, strength, endurance Height/Weight Height (Feet): 5 Height (Inches): 7.00 Weight (Pounds): 140 Weight (Ounces): 0.0 Referral Physician: Laura Harrison DO Reason for Referral: Evaluation/Treatment Medical History Pertinent Medical History: Atrial Fib, Arthritis, CAD, COPD, DM, GERD, HTN Reviewed History: Yes Social History Home: Single Level Current Living Status: Spouse Entry Into Home: Stairs With Railing PT Steps Into Home: 3 Prior Prior Level of Function SCALE: Activities may be completed with or without assistive devices. 2-Exdejmgnjf-fxlnlsd completes the activity by him/herself with no assistance from a helper. 5-Set-up or Clean-up Assistance-helper sets up or cleans up; patient completes activity. [place] assists only prior to or following the activity. 4-Supervision or Touching Assistance-helper provides verbal cues and/or touching/steadying and/or contact guard assistance as patient completes activity. Assistance may be provided throughout the activity or intermittently. 3-Partial/Moderate Assistance-helper does LESS THAN HALF the effort. [place] lifts, holds or supports trunk or limbs, but provides less than half the effort. 2-Substantial/Maximal Assistance-helper does MORE THAN HALF the effort. [place] lifts or holds trunk or limbs and provides more than half the effort. 2-Fnuqwgqcz-lhcsjy does ALL the effort. Patient does none of the effort to complete the activity. Or, the assistance of 2 or more helpers is required for the patient to complete the activity. If activity was not attempted, code reason: 7-Patient Refused. 9-Not Applicable-not attempted and the patient did not perform the activity before the current illness, exacerbation or injury. 10-Not Attempted due to Environmental Limitations-(lack of equipment, weather restraints, etc.). 88-Not Attempted due to Medical Conditions or Safety Concerns. Bed Mobility: 6 Transfers (B,C,W/C): 6 Gait: 6 Stairs: 6 Indoor Mobility (Ambulation): Independent Stairs: Independent Prior Devices Use: Walker PT Evaluation-Current Subjective Patient in restroom pre tx, agrees to PT, has low back pain of 5/10 Pt/Family Goals to be independent at home Objective Patient Orientation: Person, Place, Situation Attachments: Oxygen, Kohler Catheter, IV ROM/Strength ROM Lower Extremities WNL Strength Lower Extremities LLE (hip flexion 3+/5, knee flexion 4/5, knee extension 4/5, dorsiflexion 4+/5), RLE (hip flexion 3+/5, knee flexion 4/5, knee extension 4/5, dorsiflexion 4+/5) Sensory Vision: Wears Glasses Hearing: Hearing Aid/Aides Sensation Right Lower Extremit: Intact Sensation Left Lower Extremity: Intact Transfers Roll Left & Right (QC): 6 Sit to Lying (QC): 6 Lying to Sitting/Side of Bed(Q: 6 Sit to Stand (QC): 4 Chair/Hot-om-Yduys Xfer(QC): 4 Toilet Transfer (QC): 4 Car Transfer (QC): 4 Patient performs bed mobility and supine <-> sit with independence, sit <-> stand and transfers CGA, car transfer CGA. Good use of hands when sitting and standing Gait Does the Patient Walk?: Yes Mode of Locomotion: Walk Anticipated Mode of Locomotion: Walk Walk 10 feet (QC): 4 Walk 50 ft with 2 Turns(QC): 4 Walk 150 ft (QC): 88 Walking 10ft/uneven surface-QC: 4 Distance: 100', 120', 70' Gait Assistive Device: FWW Comments/Gait Description Patient can ambulate 120' with a rolling walker with CGA (including 50' with at least 2 turns of 90 degrees and 10' over an uneven surface). Patient ambulates slow but steady, slumped posture. Wheelchair Training Does the Pt Use a Wheelchair?: No Wheel 50 ft with 2 turns (QC): 9 Wheel 150 ft (QC): 9 Stairs #of Steps: 1 1 Step (curb) (QC): 4 4 Steps (QC): 88 12 Steps (QC): 88 Walking Assistive Device: Walker Patient went up and down 1 step with a rolling walker with CGA, cues for safety and positioning Balance Sitting Static: Normal Sitting Dynamic: Normal Standing Static: Good Standing Dynamic: Good Picking up an Object (QC): 7 (Patient refuses due to back pain) Treatment Nustep level 4 for 15 min. Assessment/Needs Patient in bed post tx with nurse call, phone, tray, all needs met. Patient gets SOB with activity and needs frequent rest breaks to recover, purse lip breathing, O2 stays in the 90's. Rehab Potential: Fair PT Short Term Goals Short Term Goals Time Frame: Jan 03, 2021 Roll Left & Right: 6 Sit to lyin Lying to sitting on side of be: 6 Sit to stand: 4 Chair/vxv-ie-qjglb transfer: 4 Walk 10 feet: 4 Walk 50 feet with two turns: 4 Walk 150 feet: 4 PT Chcf Goals Chcf Goals PT Java Core Developer Goals Time Frame: Jan 17, 2021 Roll Left & Right (QC): 6 Sit to Lying (QC): 6 Lying-Sitting on Side/Bed(QC): 6 Sit to Stand (QC): 6 Chair/Gad-xv-Sixfp Xfer(QC): 6 Toilet Transfer (QC): 6 Car Transfer (QC): 6 Does the Patient Walk: Yes Walk 10 feet (QC): 6 Walk 50ft with 2 Turns (QC): 6 Walk 150 ft (QC): 6 Walking 10ft on Uneven Surface: 6 1 Step (curb) (QC): 4 4 Steps (QC): 4 12 Steps (QC): 88 Picking up an Object (QC): 88 Wheel 50 feet with 2 turns (QC: 9 Wheel 150 feet: 9 PT Plan Problem List Problem List: Activity Tolerance, Functional Strength, Safety, Balance, Gait, Transfer, ROM Treatment/Plan Treatment Plan: Continue Plan of Care Treatment Plan: Education, Functional Activity Jennifer, Functional Strength, Group Therapy, Gait, Safety, Therapeutic Exercise, Transfers Treatment Duration: Jan 17, 2021 Frequency: At least 5 of 7 days/Wk (IRF) Estimated Hrs Per Day: 1.5 hours per day Patient and/or Family Agrees t: Yes Safety Risks/Education Patient Education: Gait Training, Transfer Techniques, Steps, Correct Positioning, Safety Issues Teaching Recipient: Patient Teaching Methods: Demonstration, Discussion Response to Teaching: Reinforcement Needed Discharge Recommendations Plan Patient will perform bed mobility and transfer training, balance and endurance training, functional strengthening, stair training, gait training, and education, to improve functional mobility and independence at home. Therapy Discharge Recommendati: Scheduled Assistance, Home & Family Time/GCodes Time In: 0920 Time Out: 1030 Total Billed Treatment Time: 70 Total Billed Treatment 1 visit EVM 15' EX 15' FA 40' ISAAK DE JESUS PT Dec 27, 2020 10:26
[2020-12-27 10:47] VITALS: BP 132/59
--- NOTE | 2020-12-27 10:57 | PM&R Post Admission Assessment ---
PM&R HP Date of Visit: Dec 27, 2020 Time of Visit: 11:00 History of Present Illness CC: Recovery from critical illness HPI: This is an 85yoWM who presents to the IRF in need of recovery from critical illness. Please see DC note below. Patient is on O2 at home 6L/min. Patient lives with his . Overall he is very weak and still short of breath. Patient will increase ambulation and ADL independence with use of AD and directed thera py techniques. Patient had a GIB during hospital stay and currently holding OAC. Pedro Garsia, [facility] Hospital Course: Kamran Hernandez was admitted to [facility] on 12/19 and will be discharged to the rehab unit today 12/27/20. Kamran was admitted for ARDS, Pneumonia and Anemia. PMH includes pAF, HTN, HLD, DM, COPD, DVT, CVA and is oxygen dependent at home on 6L. While in the ICU and general floor units of [facility] his acute and chronic conditions were managed by Internal Medicine, which included Dr. Lambert and Dr. Mendosa, Pulmonary Dr. Rocha, Cardiology Dr. Hobson, General Surgery Dr. Esparza and he received RT, PT/OT throughout his admission. Labs showed Hgb of 8.1 with his lowest reaching 6.5, leukocytosis, Lactic acid 3.68, BNP 642, Procalcitonin .30 and elevated liver enzymes. He received multiple CXRs and a EGD study, which showed mild gastritis. He was positive on his stool occult blood test, negative for COVID and Flu. Blood cultures where negative. His treatment course include but was not limited to Vapotherm, IV antibiotics and lasix, medications for gastritis, 2 units of blood and respiratory therapy. His labs have normalized or have reached an acceptable range. His HgB has been stable at 9.6. Recent CXR shows BL pulmonary infiltrate improvement compared to previous studies. The patient will be going to rehab to continue his recovery. He is in stable condition. He is no longer requiring Vapotherm and is currently down to his baseline of 6L. His HgB has stabilized and respiratory status has markedly improved. The following information is only a summary of the patients admissions while at [facility] and is not all inclusive. Please review entire chart for more information. Past Chtemej-Gdkgzn-Laebhi Hx Past Med/Social Hx: Reviewed Nursing Past Med/Soc Hx, Reviewed and Corrections made Patient Social History Marrital Status: Employed/Student: retired Alcohol Use: Denies Use Alcohol Beverage of Choice: Beer, Wine Smoking Status: Former Smoker Former Smoker, Quit: Jul 26, 1984 2nd Hand Smoke Exposure: Yes Recent Hopitalizations: No Immunizations Up To Date Tetanus Booster (TDap): Unknown Date of Pneumonia Vaccine: Aug 03, 2018 Date of Influenza Vaccine: Aug 02, 2020 Seasonal Allergies Seasonal Allergies: Yes (RUNNY NOSE) Past Medical History Surgeries: Orthopedic Respiratory: COPD, Pneumonia Currently Using CPAP: No Currently Using BIPAP: No Cardiac: Atrial Fibrillation, Coronary Artery Disease, High Cholesterol, Hypertension, Valvular Heart Disease Neurological: Stroke Reproductive: No Sexually Transmitted Disease: No HIV/AIDS: No Genitourinary: Benign Prostatic Hyperpl Gastrointestinal: Gastroesophageal Reflux, Diverticulosis, Polyps Musculoskeletal: Arthritis, Chronic Back Pain Endocrine: Diabetes, Non-Insulin dep HEENT: Cataract Loss of Vision: Denies Hearing Impairment: Hard of Hearing, Bilateral Hearing Aide Skin/Integumentary: Eczema, Psoriasis History of Blood Disorders: Yes (HX ANEMIA -BLEEDING ULCER) Adverse Reaction to Blood Gomez: No (HAS HAD BLOOD WITH NO REACTION) Family History FH: liver disease 19 MOTHER FH: lung cancer 19 FATHER Cancer Prior Level of Function Bed Mobility: 6 Transfers: 6 Gait: 6 Stairs: 6 Indoor Mobility (Ambulation): Independent Stairs: Independent Prior Devices Use: Walker 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 Current Level of Fuctioning Roll Left to Right: 6 Sit to Lyin Lying to Sitting/Side of Bed: 6 Sit to Stand: 4 Chair/Mna-al-Tawbr Xfer: 4 Car Transfer: 4 Does the Patient Walk: Yes Mode of Locomotion: Walk Anticipated Mode of Locomotion: Walk Walk 10 feet: 4 Walk 50 ft with 2 Turns: 4 Walk 150 ft: 88 Walking 10ft on uneven surface: 4 Gait Assistive Device: FWW Does the Pt Use a Wheelchair: No Wheel 50 ft with 2 turns: 9 Wheel 150 ft: 9 #of Steps: 1 1 Step (curb): 4 4 Steps: 88 Walking Assistive Device: Walker 12 Steps: 88 Picking up an Object: 7 (Patient refuses due to back pain) PM&R Allergy/Meds/Data Review Allergies Coded Allergies: No Known Drug Allergies (Unverified , 06/15/20) Home Medications Scheduled Alfuzosin HCl (Alfuzosin HCl ER), 10 MG PO DAILY, (Reported) Amiodarone HCl (Amiodarone HCl), 200 MG PO DAILY, (Reported) Apixaban (Eliquis), 2.5 MG PO BID, (Reported) Atorvastatin Calcium (Atorvastatin Calcium), 40 MG PO HS, (Reported) Diltiazem HCl (Diltiazem ER), 180 MG PO DAILY, (Reported) Losartan Potassium (Losartan Potassium), 25 MG PO HS, (Reported) Metformin HCl (Metformin HCl ER), 500 MG PO 1800, (Reported) Pantoprazole Sodium (Pantoprazole Sodium), 40 MG PO DAILY, (Reported) [Bethanechol], 25 MG PO 0700,1200, (Reported) Scheduled PRN Albuterol Sulfate (Albuterol Sulfate), 2.5 MG NEB Q6H PRN for SHORTNESS OF BREATH, (Reported) Docusate Sodium (Stool Softener), 100 MG PO DAILY PRN for CONSTIPATION-1ST LINE, (Reported) Promethazine HCl/Codeine (Promethazine-Codeine Solution), 10 ML PO Q8H PRN for COUGH, (Reported) Sodium Chloride/Aloe Vera ([place] Saline Nasal Gel), 1 APPLIC NSEACH PRN PRN for DRY NOSE, (Reported) Current Medications Current Medications Reviewed Review of Systems Constitutional: see HPI, malaise, weakness EENTM: no symptoms reported Respiratory: cough, dyspnea on exertion, short of breath, wheezing Cardiovascular: edema Gastrointestinal: no symptoms reported Genitourinary: no symptoms reported Musculoskeletal: back pain, joint pain Skin: no symptoms reported Psychiatric/Neurological: Anxiety, Depressed All Other Systems Reviewed Negative Unless Noted: Yes Physical Exam Physical Exam Vital Signs Vital Signs - First Documented 12/27/20 10:47 Temp 36.1 Pulse 65 Resp 18 B/P (MAP) 132/59 (83) Pulse Ox 97 O2 Delivery High Flow N/C O2 Flow Rate 6.00 Capillary Refill : Height, Weight, BMI Height: 5'7.00" Weight: 140lbs. 0.0oz. [id number]; 21.15 BMI Method:Stated General Appearance: No Apparent Distress, WD/WN, Chronically ill Eyes: Bilateral Eye Normal Inspection, Bilateral Eye PERRL HEENT: PERRL/EOMI, Normal ENT Inspection, Pharynx Normal Neck: Full Range of Motion, Normal Inspection, Non Tender, Supple, Carotid Bruit Respiratory: Chest Non Tender, Lungs Clear, No Accessory Muscle Use, No Respiratory Distress, Crackles, Decreased Breath Sounds Cardiovascular: Regular Rate, Rhythm, No Edema, No Gallop, No JVD, No Murmur, Normal Peripheral Pulses Gastrointestinal: Normal Bowel Sounds, No Organomegaly, No Pulsatile Mass, Non Tender, Soft Back: Normal Inspection, No CVA Tenderness, No Vertebral Tenderness Extremity: Normal Capillary Refill, Normal Inspection, Normal Range of Motion, Non Tender, No Calf Tenderness, No Pedal Edema Neurologic/Psychiatric: Alert, Oriented x3, No Motor/Sensory Deficits, 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, Abnormal Gait, Motor Weakness (generalized weakness lower extremities) Skin: Normal Color, Warm/Dry Lymphatic: No Adenopathy PM&R Medical Assessment & Plan REHAB/MEDICAL ASSESSMENT AND PLAN: REHAB 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 The comorbidities that impact the patients function and/or functional outcome by: GIB holding OAC, anemia, hypoxia, CHF, edema REHAB PLAN: The patient is being admitted to our comprehensive inpatient rehabilitation facility and can tolerate the intensity of service consisting of at least: 180 minutes of therapy a day, 5 out of 7 days a week Rehab treatment will consist of: PT OT will focus on regaining function with increased ambulation and ADL's with the use of AD The patient/family has a good understanding of our discharge process and will benefit from an interdisciplinary inpatient rehabilitation program. The patient has potential to make improvement and is in need of at least two of the following multidisciplinary therapies including but not limited to physical, occupational, speech, and prosthetics and orthotics. Additionally the patient will need services from respiratory, nutritional services, wound care, psychology, etc. (Customize this to each patient). Given the patients complex condition and risk of further medical complications, rehabilitation services cannot be safely or effectively provided at a lower level of care such as a residential facility. BARRIERS TO DISCHARGE: Severe hypoxia ESTIMATED LOS: 7 days DISPOSITION: Home RELEVANT CHANGES SINCE PREADMISSION SCREENING: I have compared the patients medical and functional status at the time of the preadmission screening and there are: no changes PROGNOSIS: Good REHABILITATION GOALS: 1. PT OT will focus on regaining function with increased ambulation and ADL's with the use of AD All the above goals were reviewed with the patient and he/she is in agreement. By signing this document, I acknowledge that I have personally performed a full physical examination on this patient within 24 hours of admission to this inpatient rehabilitation facility and have determined the patient to be able to tolerate the above course of treatment at an intensive level for a reasonable period of time. I will be completing a detailed individualized Plan of Care for this patient by day #4 of the patients stay based upon the Preadmission Screen, the Post-Admission Evaluation, and the therapy evaluations. Admission Dx/Comorbidities: (1) Acute and chronic respiratory failure with hypoxia Status: Acute ICD Codes: J96.21 - Acute and chronic respiratory failure with hypoxia (2) PNA (pneumonia) Status: Acute ICD Codes: J18.9 - Pneumonia, unspecified organism (3) Severe sepsis Status: Acute ICD Codes: A41.9 - Sepsis, unspecified organism; R65.20 - Severe sepsis without septic shock (4) Rectal bleeding Status: Acute ICD Codes: K62.5 - Hemorrhage of anus and rectum (5) Wheezing Status: Acute ICD Codes: R06.2 - Wheezing (6) T2DM (type 2 diabetes mellitus) Status: Chronic ICD Codes: E11.9 - Type 2 diabetes mellitus without complications (7) Atrial fibrillation with RVR Status: Acute ICD Codes: I48.91 - Unspecified atrial fibrillation (8) Dyspnea ICD Codes: R06.00 - Dyspnea, unspecified (9) CVA (cerebral vascular accident) Status: Acute ICD Codes: I63.9 - CVA (cerebral vascular accident) (10) Severe anemia Status: Acute ICD Codes: D64.9 - Anemia, unspecified (11) GI bleed Status: Acute ICD Codes: K92.2 - Gastrointestinal hemorrhage, unspecified Assessment/Plan Assessment and Plan Assess & Plan/Chief Complaint Assessment: Critical illness myopathy Acute on chronic respiratory failure Chronic hypoxia requires O2 dependence at home GIB Acute blood loss anemia PNA CHF AF Edema Plan: Monitor O2 Lasix DC catheter Monitor pain IRF protocol MARY LAMBERT DO Dec 27, 2020 10:57
[2020-12-27] MEDS ORDERED: BISACODYL 10 MG SUPP (DULCOLAX) PR PRN (11:00)
[2020-12-27] MEDS ORDERED: DOCUSATE SODIUM 100 MG (COLACE) CAP PO PRN (11:00)
[2020-12-27] MEDS ORDERED: ONDANSETRON 4 MG (ZOFRAN) ORAL DISSOLVE TAB PO PRN (11:00)
[2020-12-27] MEDS ORDERED: ALPRAZolam 0.25 MG (XANAX) TAB PO PRN (11:00)
[2020-12-27] MEDS ORDERED: CALCIUM CARBONATE 500 MG (TUMS) TAB.CHEW PO PRN (11:00)
[2020-12-27] MEDS ORDERED: LOPERAMIDE 2 MG (IMODIUM) TABLET PO PRN (11:00)
[2020-12-27] MEDS ORDERED: LACTULOSE SYRUP 10GM/15ML (ENULOSE) 30ML UDC PO PRN (11:00)
[2020-12-27] MEDS ORDERED: MELATONIN 3 MG TABLET PO PRN (11:00)
[2020-12-27] MEDS ORDERED: FLEET ENEMA ADULT 1 EA BTL PR PRN (11:00)
[2020-12-27] MEDS ORDERED: diphenhydrAMINE 25 MG TAB (BENADRYL) PO PRN (11:00)
[2020-12-27] MEDS ORDERED: guaiFENesin/CODEINE (ROBITUSSIN AC) 10ML UDC PO PRN (11:00)
[2020-12-27] MEDS ORDERED: ONDANSETRON 4 MG/2 ML (SDV) Z0FRAN IV PRN (11:00)
[2020-12-27] MEDS: inSUlin ASPART (NovoLOG) 1 UNIT/0.01 ML (CHARGE PER UNIT) SC SCH ×3 (11:30→21:16)
[2020-12-27] MEDS: CEFEPIME INJECTION 1,000 MG in WATER (STERILE) FOR INJECTION 10 ML IV SCH ×2 (13:12→18:20)
[2020-12-27] MEDS ORDERED: RT-ALBUTEROL INHALER HFA (VENTOLIN HFA) 18 GM IH SCH (14:00)
[2020-12-27] MEDS: CATHETER FLUSH 10 ML SYR IV SCH ×2 (14:35→22:21)
--- NOTE | 2020-12-27 14:38 | Physical Therapy Daily Note ---
PT Daily Note-Current Subjective Patient in therapy gym pre tx, already working with OT, has no complaints of pain. Will be co-treating with OT to work on more advanced balance activities and due to poor endurance, mobility, the need to coordinate UE and LE during activity, safety and reduce risk of falls. Appearance Patient in therapy gym post tx to continue with OT Mental Status Patient Orientation: Person, Place, Situation Attachments: Oxygen Transfers SCALE: Activities may be completed with or without assistive devices. 9-Swraxqanun-msamxps completes the activity by him/herself with no assistance from a helper. 5-Set-up or Clean-up Assistance-helper sets up or cleans up; patient completes activity. [place] assists only prior to or following the activity. 4-Supervision or Touching Assistance-helper provides verbal cues and/or touching/steadying and/or contact guard assistance as patient completes activity. Assistance may be provided throughout the activity or intermittently. 3-Partial/Moderate Assistance-helper does LESS THAN HALF the effort. [place] lifts, holds or supports trunk or limbs, but provides less than half the effort. 2-Substantial/Maximal Assistance-helper does MORE THAN HALF the effort. [place] lifts or holds trunk or limbs and provides more than half the effort. 2-Dgutfnvtr-jwjebh does ALL the effort. Patient does none of the effort to comp lete the activity. Or, the assistance of 2 or more helpers is required for the patient to complete the activity. If activity was not attempted, code reason: 7-Patient Refused. 9-Not Applicable-not attempted and the patient did not perform the activity before the current illness, exacerbation or injury. 10-Not Attempted due to Environmental Limitations-(lack of equipment, weather restraints, etc.). 88-Not Attempted due to Medical Conditions or Safety Concerns. Neuromuscular balance activity in parallel bars standing on airex and reaching, patient gets shaky with exertion, needs several rest breaks Treatments balance training Assessment Current Status: Fair Progress fatigues easily PT Short Term Goals Short Term Goals Time Frame: Jan 03, 2021 Roll Left & Right: 6 Sit to lyin Lying to sitting on side of be: 6 Sit to stand: 4 Chair/cgw-ox-lwzge transfer: 4 Walk 10 feet: 4 Walk 50 feet with two turns: 4 Walk 150 feet: 4 PT Long-Term Goals Long-Term Goals PT Farmworker [place] Goals Time Frame: Jan 17, 2021 Roll Left & Right (QC): 6 Sit to Lying (QC): 6 Lying-Sitting on Side/Bed(QC): 6 Sit to Stand (QC): 6 Chair/Xku-ub-Tokfw Xfer(QC): 6 Toilet Transfer (QC): 6 Car Transfer (QC): 6 Does the Patient Walk: Yes Walk 10 feet (QC): 6 Walk 50ft with 2 Turns (QC): 6 Walk 150 ft (QC): 6 Walking 10ft on Uneven Surface: 6 1 Step (curb) (QC): 4 4 Steps (QC): 4 12 Steps (QC): 88 Picking up an Object (QC): 88 Wheel 50 feet with 2 turns (QC: 9 Wheel 150 feet: 9 PT Plan Problem List Problem List: Activity Tolerance, Functional Strength, Safety, Balance, Gait, Transfer, ROM Treatment/Plan Treatment Plan: Continue Plan of Care Treatment Plan: Education, Functional Activity Jennifer, Functional Strength, Group Therapy, Gait, Safety, Therapeutic Exercise, Transfers Treatment Duration: Jan 17, 2021 Frequency: At least 5 of 7 days/Wk (IRF) Estimated Hrs Per Day: 1.5 hours per day Patient and/or Family Agrees t: Yes Safety Risks/Education Patient Education: Correct Positioning, Safety Issues Teaching Recipient: Patient Teaching Methods: Demonstration, Discussion Response to Teaching: Reinforcement Needed Time/GCodes Time In: 1410 Time Out: 1430 Total Billed Treatment Time: 20 Total Billed Treatment 1 visit NM [id number] BARNES PT Dec 27, 2020 14:38
--- NOTE | 2020-12-27 15:38 | Occupational Therapy Eval ---
OT Evaluation-General/PLF Medical Diagnosis Admission Date Dec 27, 2020 at 09:20 Medical Diagnosis: pneumonia/sepsis/respiratory failure/hypoxia Onset Date: Dec 19, 2020 Therapy Diagnosis Therapy Diagnosis: Weakness, Decreased ADL skills Height/Weight Height (Feet): 5 Height (Inches): 7.00 Weight (Pounds): 140 Weight (Ounces): 0.0 Precautions Precautions/Isolations: Standard Precautions Weight Bear Status Weight Bearing Restriction: Weight Bearing/Tolerated Referral Physician: Laura Harrison DO Referral Reason: Activity Tolerance, Self Care, Evaluation/Treatment, Strengthening/ROM Medical History Pertinent Medical History: Atrial Fib, Arthritis, CAD, COPD, DM, GERD, HTN Additional Medical History Valvular heart Reviewed History: Yes Social History Home: Single Level Current Living Status: Spouse Entry Into Home: Stairs With Railing Steps Into Home: 3 ADL-Prior Level of Function SCALE: Activities may be completed with or without assistive devices. 0-Auwuovwsga-yodjhhi completes the activity by him/herself with no assistance from a helper. 5-Set-up or Clean-up Assistance-helper sets up or cleans up; patient completes activity. [place] assists only prior to or following the activity. 4-Supervision or Touching Assistance-helper provides verbal cues and/or touching/steadying and/or contact guard assistance as patient completes activity. Assistance may be provided throughout the activity or intermittently. 3-Partial/Moderate Assistance-helper does LESS THAN HALF the effort. Brothers lifts, holds or supports trunk or limbs, but provides less than half the effort. 2-Substantial/Maximal Assistance-helper does MORE THAN HALF the effort. Brothers lifts or holds trunk or limbs and provides more than half the effort. 7-Cdxgdwvcl-mnjhgj does ALL the effort. Patient does none of the effort to complete the activity. Or, the assistance of 2 or more helpers is required for the patient to complete the activity. If activity was not attempted, code reason: 7-Patient Refused. 9-Not Applicable-not attempted and the patient did not perform the activity before the current illness, exacerbation or injury. 10-Not Attempted due to Environmental Limitations-(lack of equipment, weather restraints, etc.). 88-Not Attempted due to Medical Conditions or Safety Concerns. ADL PLOF Comments Pt. was independent with most ADL tasks prior, with exception of donning socks and shoes. He states that he has a sock aide and steam pipe fitter, but occasionally his spouse would put them on for him. Pt. uses a walker and was using 6L 02. Self Care: Independent Functional Cognition: Independent DME/Equipment: Bath Chair, Shower DME/Equipment Comments Pt. has walker and shower chair. 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 Appearance Pt. alert and oriented. Agrees to treatment. Mental Status/Objective Patient Orientation: Person, Place, Time, Situation Attachments: Oxygen Current Glasses/Contacts: Yes Hand Dominance: Right Upper Extremity ROM WFL ADL-Treatment Eating (QC): 6 Oral Hygiene (QC): 7 Shower/Bathe Self (QC): 3 (Min assist with LE) Upper Body Dressing (QC): 4 Lower Body Dressing (QC): 3 (Min assist to don over right foot.) On/Off Footwear (QC): 2 Toileting Hygiene (QC): 1 (Catheter) Other Treatments Pt. transfers supine-sit with SBA. Declines showering, but agrees to sponge bathe seated on side of bed. After ADLs, pt. issued hip kit to use, as he alreterry dy uses a sock aide and steam pipe fitter at home. Pt. transferred back to bed with SBA after ADLs. All needs met. Education OT Patient Education: Correct positioning, Modified ADL techniques, Progress toward Goal/Update tx plan, Purpose of tx/functional activities, Rehab process, Transfer techniques Teaching Recipient: Patient Teaching Methods: Demonstration, Discussion Response to Teaching: Verbalize Understanding, Return Demonstration OT Short Term Goals Short Term Goals Time Frame: Jan 03, 2021 Eatin Oral hygiene: 5 Toileting hygiene: 4 Shower/bathe self: 4 Upper body dressin Lower body dressin (with AE) Putting on/taking off footwear: 4 (with AE) OT Director Of Special Events Goals Fpc Goals Time Frame: Jan 10, 2021 Eating (QC): 6 Oral Hygiene (QC): 6 Toileting Hygiene (QC): 6 Shower/Bathe Self (QC): 5 Upper Body Dressing (QC): 6 Lower Body Dressing (QC): 6 On/Off Footwear (QC): 6 (with AE) Additional Goals: 1-Demonstrate ADL Tasks, 2-Verbalize Understanding, 3- ImproveStrength/Jennifer 1=Demonstrate adherence to instructed precautions during ADL tasks. 2=Patient will verbalize/demonstrate understanding of assistive devices/modifi cations for ADL. 3=Patient will improve strength/tolerance for activity to enable patient to perform ADL's. OT Education/Plan Problem List/Assessment Assessment: Decreased Activ Tolerance, Impaired I ADL's, Impaired Self-Care Skills Discharge Recommendations Plan/Recommendations: Continue POC Therapy Discharge Recommendati: Home & Family, Post Acute OT Treatment Plan/Plan of Care Treatment,Training & Education: Yes Patient would benefit from OT for education, treatment and training to promote independence in ADL's, mobility, safety and/or upper extremity function for ADL's. Plan of Care: ADL Retraining, Functional Mobility, UE Funct Exercise/Act Treatment Duration: Jan 10, 2021 Frequency: At least 5 of 7 days/Wk (IRF) Estimated Hrs Per Day: 1.5 hours per day Agreement: Yes Rehab Potential: Good Time/GCodes Start Time: 10:50 Stop Time: 11:30 Total Time Billed (hr/min): 40 Billed Treatment Time 1, EVM x 10minutes, ADL x 30minutes CLAUDIA KERNS OT Dec 27, 2020 15:38
--- NOTE | 2020-12-27 15:48 | ST Cognitive Linguistic Eval ---
Speech Evaluation-General Medical Diagnosis pneumonia/sepsis/respiratory failure/hypoxia Onset Date: Dec 19, 2020 Therapy Diagnosis Therapy Diagnosis: Cognitive-communication Referral Referring Physician: Dr. Harrison Medical History Pertinent Medical History: Atrial Fib, Arthritis, CAD, COPD, DM, GERD, HTN Reviewed History: Yes Social History Current Living Status: Spouse Speech PLF-Current Status Prior Level of Function Patient lives in his home with his where he is independent for much of his daily needs. Subjective Patient was pleasant and cooperative with the cognitive assessment. Language Eval: Auditory Comprehends Simple Yes/No Ques: Functional Indent/Objects Multiple Boogie: Functional Ident/Pics in Multiple Boogie: Functional Follows 1-Step Commands: Functional Follows Complex Directions: Functional Follows General Conversations: Functional Language Eval: Verbal Language Completes Spontaneous Greeting: Functional Produces Auto, Serial Info: Functional Imitates Simple Words/Phrases: Functional Word Finding: Functional Requests Basic Needs: Functional States Basic Personal Info: Functional Expresses Complex Ideas: Functional Objective Cognitive Domain Attention: WNL Memory: WNL Problem Solving: Functional Executive Functions: WNL Visuospatial Skills: WNL Composite Severity Rating: WNL Clock Drawing Severity Rating: WNL Objective Formal/Standardized Tests [facility] Mental Status ([facility]) Results 27/30, within normal range of function Oral Motor/Speech Production Within Normal Limits Impression Patient is a pleasant 85 y/o male who was admitted to the ARU due to debility and need for strengthening. The patient was given the SLUMS with a score of 27/30 obtained. The patient's score is in the normal range of function and is not indicative for further ST services. Speech Patient Assess Expression of Ideas/Wants: Expression (4) Understanding Verbal Content: Understands (4) Brief Interview-Mental Status: Yes Repetition of Three Words: Three (3) Temporal Orientation: Year: Correct (3) Temporal Orientation: Month: Accurate within 5 days(2) Temporal Orientation: Day: Correct (1) Recall : Wear to say "Sock": Yes, no cue required (2) Recall : Color: Yes, after cueing (1) Recall : Bed: Yes, no cue required (2) Memory/Recall Ability: Current season, Location of own room, That he or she is in a hsp/hsp unit Speech-Plan Patient/Family Goals Patient/Family Goals: Patient plans on returning to his home where he lives with his . Treatment Plan Speech Therapy Treatment Plan: Discontinue ST Treatment Duration: Dec 27, 2020 Frequency: 1 time per week Estimated Hrs Per Day: .25 hour per day Rehab Potential: Fair Barriers to Learning: Patient's age Pt/Family Agrees to Plan: Yes Safety Risks/Education Teaching Recipient: Patient, Family Teaching Methods: Discussion Response to Teaching: Verbalize Understanding Education Topics Provided: Safety within his room, communication of wants/needs Time Speech Therapy Time In: 15:15 Speech Therapy Time Out: 15:30 Total Billed Time: 15 Billed Treatment Time 1, SPSNDCOMP MITA Harrington Dec 27, 2020 15:48
--- NOTE | 2020-12-27 15:51 | Occupational Ther Daily Note ---
OT Current Status-Daily Note Subjective No pain reported. Mental Status/Objective Patient Orientation: Person, Place, Time, Situation Attachments: Oxygen ADL-Treatment Therapy Code Descriptions/Definitions Functional [place] Measure: 0=Not Assessed/NA 4=Minimal Assistance 1=Total Assistance 5=Supervision or Setup 2=Maximal Assistance 6=Modified [place] 3=Moderate Assistance 7=Complete IndependenceSCALE: Activities may be completed with or without assistive devices. 3-Esdkdsjlgh-rlkxpco completes the activity by him/herself with no assistance from a helper. 5-Set-up or Clean-up Assistance-helper sets up or cleans up; patient completes activity. [place] assists only prior to or following the activity. 4-Supervision or Touching Assistance-helper provides verbal cues and/or touching/steadying and/or contact guard assistance as patient completes activity. Assistance may be provided throughout the activity or intermittently. 3-Partial/Moderate Assistance-helper does LESS THAN HALF the effort. [place] lifts, holds or supports trunk or limbs, but provides less than half the effort. 2-Substantial/Maximal Assistance-helper does MORE THAN HALF the effort. [place] lifts or holds trunk or limbs and provides more than half the effort. 8-Tnfsjnfit-cvdmwo does ALL the effort. Patient does none of the effort to complete the activity. Or, the assistance of 2 or more helpers is required for the patient to complete the activity. If activity was not attempted, code reason: 7-Patient Refused. 9-Not Applicable-not attempted and the patient did not perform the activity before the current illness, exacerbation or injury. 10-Not Attempted due to Environmental Limitations-(lack of equipment, weather restraints, etc.). 88-Not Attempted due to Medical Conditions or Safety Concerns. Other Treatment Pt. agrees to treatment. Transferred supine-sit with SBA. Ambulated with walker and CGA to therapy gym. Pt. on 6L oxygen. PT came into gym and OT/PT completed co-treat due to low endurance. PT focused on mobility and balance while OT worked on UE reach and weight shift. Pt.stood on uneven surface at parallel bars, and reached in all planes to work on balance control and endu kain. Required rest break in between each stand, and stood x 3, approximately 4 minutes each time. PT left room and pt. transferred to arm bike for increased overall strength. Completed arm bike x 5 minutes at min resistance. Ambulated back to room. All needs met up in chair. Education OT Patient Education: Correct positioning, Exercise program, Modified ADL techniques, Progress toward Goal/Update tx plan, Purpose of tx/functional activities, Reviewed precautions, Rehab process, Transfer techniques Teaching Recipient: Patient Teaching Methods: Demonstration, Discussion Response to Teaching: Verbalize Understanding, Return Demonstration OT Short Term Goals Short Term Goals Time Frame: Jan 03, 2021 Eatin Oral hygiene: 5 Toileting hygiene: 4 Shower/bathe self: 4 Upper body dressin Lower body dressin (with AE) Putting on/taking off footwear: 4 (with AE) OT Marketing And Outreach Coordinator Goals Intermediate Goals Time Frame: Jan 10, 2021 Eating (QC): 6 Oral Hygiene (QC): 6 Toileting Hygiene (QC): 6 Shower/Bathe Self (QC): 5 Upper Body Dressing (QC): 6 Lower Body Dressing (QC): 6 On/Off Footwear (QC): 6 (with AE) Additional Goals: 1-Demonstrate ADL Tasks, 2-Verbalize Understanding, 3- ImproveStrength/Jennifer 1=Demonstrate adherence to instructed precautions during ADL tasks. 2=Patient will verbalize/demonstrate understanding of assistive devices/modifications for ADL. 3=Patient will improve strength/tolerance for activity to enable patient to perform ADL's. OT Education/Plan Problem List/Assessment Assessment: Decreased Activ Tolerance, Impaired I ADL's, Impaired Self-Care Skills Discharge Recommendations Plan/Recommendations: Continue POC Therapy Discharge Recommendati: Home & Family, Post Acute OT Treatment Plan/Plan of Care Treatment,Training & Education: Yes Patient would benefit from OT for education, treatment and training to promote independence in ADL's, mobility, safety and/or upper extremity function for ADL's. Plan of Care: ADL Retraining, Functional Mobility, UE Funct Exercise/Act Treatment Duration: Jan 10, 2021 Frequency: At least 5 of 7 days/Wk (IRF) Estimated Hrs Per Day: 1.5 hours per day Agreement: Yes Rehab Potential: Good Time/GCodes Start Time: 14:00 Stop Time: 14:50 Total Time Billed (hr/min): 50 Billed Treatment Time 9631-8085- 1, FA x 30minutes, Ex x 20minutes [id number] PT in for co-treatment. Please see above note for designated roles. CLAUDIA KERNS OT Dec 27, 2020 15:51
[2020-12-27 17:57] VITALS: BP 151/66
[2020-12-27] MEDS: RT-ALBUTEROL INHALER HFA (VENTOLIN HFA) 18 GM IH SCH (18:25)
[2020-12-27] MEDS: PANTOPRAZOLE 40 MG (PROTONIX) TAB PO SCH (21:19)
[2020-12-27] MEDS: MELATONIN 3 MG TABLET PO SCH (21:19)
[2020-12-27] MEDS: guaiFENesin (MUCINEX) 600 MG TAB PO SCH (21:19)
[2020-12-27] MEDS: ACETAMINOPHEN 325 MG TABLET PO PRN (21:20)
[2020-12-27] MEDS: DOCUSATE SODIUM 100 MG (COLACE) CAP PO SCH ×2 (21:20)
[2020-12-27] MEDS: polyethylene glycoL POWDER 17 GM (MIRALAX) PACK PO SCH (21:20)
[2020-12-27] MEDS: SENNA W/DOCUSATE (SENOKOT S) TABLET PO SCH (21:20)
[2020-12-28] MEDS: CEFEPIME INJECTION 1,000 MG in WATER (STERILE) FOR INJECTION 10 ML IV SCH ×3 (03:20→18:09)
[2020-12-28] MEDS: CATHETER FLUSH 10 ML SYR IV SCH ×3 (03:21→21:11)
[2020-12-28] MEDS: inSUlin ASPART (NovoLOG) 1 UNIT/0.01 ML (CHARGE PER UNIT) SC SCH (05:17)
[2020-12-28 05:28] VITALS: BP 163/70
[2020-12-28] MEDS: predniSONE 20 MG TAB PO SCH (06:37)
[2020-12-28] MEDS: RT-ALBUTEROL INHALER HFA (VENTOLIN HFA) 18 GM IH SCH ×2 (07:45→18:47)
[2020-12-28] MEDS: guaiFENesin (MUCINEX) 600 MG TAB PO SCH ×2 (08:12→21:10)
[2020-12-28] MEDS: SENNA W/DOCUSATE (SENOKOT S) TABLET PO SCH ×2 (08:12→21:15)
[2020-12-28] MEDS: PANTOPRAZOLE 40 MG (PROTONIX) TAB PO SCH ×2 (08:12→21:10)
[2020-12-28] MEDS: DOCUSATE SODIUM 100 MG (COLACE) CAP PO SCH ×4 (08:13→21:15)
[2020-12-28] MEDS: FUROSEMIDE 40 MG/4 ML INJ (LASIX) IVP SCH (08:13)
[2020-12-28] MEDS: ANIDULAFUNGIN INJECTION 100 MG in NS (IVPB) 100 ML IV SCH (08:20)
[2020-12-28] MEDS: polyethylene glycoL POWDER 17 GM (MIRALAX) PACK PO SCH ×2 (08:25→21:15)
--- NOTE | 2020-12-28 08:50 | Cardiology Progress Note ---
Subjective Date Seen by Provider: Dec 28, 2020 Time Seen by Provider: 08:05 Subjective/Events-last exam patient was seen at bedside, sitting comfortably, no new complaint, still using oxygen Review of Systems General: No Chills, No Night Sweats; Fatigue; No Malaise, No Appetite, No Other HEENT: No Head Aches, No Visual Changes, No Eye Pain, No Ear Pain, No Dysphasia , No Sinus Congestion, No Post Nasal Drip, No Sore Throat, No Other Pulmonary: Dyspnea; No Cough, No Pleuritic Chest Pain, No Other Cardiovascular: No: Chest Pain, Palpitations, Orthopnea, Paroxysmal Noc. Dyspnea, Edema, Lt Headedness, Other Objective-Cardiology Exam Last Set of Vital Signs Vital Signs 12/27/20 12/28/20 12/28/20 14:59 05:28 08:00 Temp 36.4 Pulse 69 Resp 21 B/P (MAP) 163/70 (101) Pulse Ox 92 O2 Delivery Nasal Cannula O2 Flow Rate 6.00 FiO2 44 Capillary Refill : I&O Intake and Output 12/28/20 00:00 Intake Total 500 ml Output Total 1501 ml Balance -1001 ml Intake Oral 500 ml Output Urine Total 1500 ml Stool Total 1 ml Daily Weight Change No General: Alert, Oriented X3, Cooperative HEENT: Atraumatic, PERRLA Neck: Supple, No JVD, No Thyromegaly Lungs: Normal Air Movement, Other (bilateral rhonchi) Heart: Regular Rate, Normal S1, Normal S2, Other (systolic murmur at the left sternal border) Abdomen: Normal Bowel Sounds, Soft, No Tenderness, No Hepatosplenomegaly, No Masses Extremities: No Clubbing, No Cyanosis, No Edema, Normal Pulses, No Tenderness/Swelling Skin: No Rashes, No Breakdown, No Significant Lesion Neuro: Normal Speech, Normal Tone, Sensation Intact Psych/Mental Status: Mental Status NL, Mood NL Results Lab Laboratory Tests 12/28/20 09:52 A/P-Cardiology Admission Diagnosis acute respiratory failure Debility Anemia COPD Assessment/Plan Acute respiratory failure, pneumonia, currently on nasal cannula, maintaining adequate oxygenation, continues to improve Anemia, status post transfusion one packed RBCs, history of GI bleed and hospitalized in October 2017, 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 Continue to monitor [id number] score of 6, yearly risk of stroke without oral anticoagulation is 9.8 percent, maintained on Eliquis, I will hold for now History of CVA with left facial drooping, left arm weakness. 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 Patient had initial workup at hospital in [place]. MRI of the head showed subacute infarct, patient is maintained on Eliquis, continue to hold all anticoagulation due to the GI bleed History of syncope, patient had tilt table test which revealed severe dizziness and hypotension back in February 2013. Reports improvement, no further episodes of syncope after increasing salt and fluid intake. Hypertension, monitor blood pressure Hyperlipidemia, monitor lipids Diabetes mellitus, followed and managed by Dr. Howe, seen during the hospitalization with Dr. Bedoya Bilateral moderate carotid stenosis, 40-59 percent per most recent carotid duplex done December 2019, continue to monitor. Dysphagia, Zenker diverticulum, status post Zenker diverticulum surgery done by Dr. Estrada. Patient was seen and evaluated with Rica, examination performed, management plan was discussed, agree with the current scribed note, I made few changes to the note using Italic font Patient was seen at bedside feeling better, still using oxygen Receiving physical therapy Continue on current medication monitor Clinical Quality Measures DVT/VTE Risk/Contraindication: Contraindications-Pharm: Other *list below* Other: RICA Sidhu Dec 28, 2020 08:50 CRISS FOSTER MD Dec 28, 2020 10:44
[2020-12-28 10:00] LABS: BASOPHILS % (AUTO) 0 % (0-10); EOSINOPHILS % (AUTO) 0 % (0-10); HEMATOCRIT 37 % (40-54); HEMOGLOBIN 11.7 g/dL (13.3-17.7); LYMPHOCYTES # (AUTO) 0.5 10^3/uL (1.0-4.0); LYMPHOCYTES % (AUTO) 3 % (12-44); MEAN CORPUSCULAR HEMOGLOBIN 28 pg (25-34); MEAN CORPUSCULAR HGB CONC 31 g/dL (32-36); MEAN CORPUSCULAR VOLUME 89 fL (80-99); MEAN PLATELET VOLUME 9.7 fL (9.0-12.2); MONOCYTES # (AUTO) 0.5 10^3/uL (0.0-1.0); MONOCYTES % (AUTO) 3 % (0-12); NEUTROPHILS # (AUTO) 14.7 10^3/uL (1.8-7.8); NEUTROPHILS % (AUTO) 93 % (42-75); PLATELET COUNT 383 10^3/uL (130-400); WHITE BLOOD COUNT 15.9 10^3/uL (4.3-11.0)
[2020-12-28 10:19] LABS: ALBUMIN 3.5 GM/DL (3.2-4.5); BILIRUBIN,TOTAL 0.7 MG/DL (0.1-1.0); CREATININE SERUM 1.26 MG/DL (0.60-1.30); POTASSIUM 4.4 MMOL/L (3.6-5.0); TOTAL PROTEIN 7.1 GM/DL (6.4-8.2)
--- NOTE | 2020-12-28 11:19 | Physical Therapy Daily Note ---
PT Daily Note-Current Subjective Agreeable to PT. Reports he rested well last night. During treatment session, requested rest breaks and noted he tires easily. Mental Status Patient Orientation: Person, Place, Time, Situation Attachments: Oxygen (6l/min; on during and post visit. ), IV Transfers SCALE: Activities may be completed with or without assistive devices. 9-Wjvqxggcvu-mrmybgm completes the activity by him/herself with no assistance from a helper. 5-Set-up or Clean-up Assistance-helper sets up or cleans up; patient completes activity. [place] assists only prior to or following the activity. 4-Supervision or Touching Assistance-helper provides verbal cues and/or touching/steadying and/or contact guard assistance as patient completes activity. Assistance may be provided throughout the activity or intermittently. 3-Partial/Moderate Assistance-helper does LESS THAN HALF the effort. [place] lifts, holds or supports trunk or limbs, but provides less than half the effort. 2-Substantial/Maximal Assistance-helper does MORE THAN HALF the effort. [place] lifts or holds trunk or limbs and provides more than half the effort. 8-Jefsziqzm-jngtil does ALL the effort. Patient does none of the effort to complete the activity. Or, the assistance of 2 or more helpers is required for the patient to complete the activity. If activity was not attempted, code reason: 7-Patient Refused. 9-Not Applicable-not attempted and the patient did not perform the activity before the current illness, exacerbation or injury. 10-Not Attempted due to Environmental Limitations-(lack of equipment, weather restraints, etc.). 88-Not Attempted due to Medical Conditions or Safety Concerns. Sit to Lying (QC): 4 (SBA for safety. ) Sit to Stand (QC): 3 (CGA with cues for safety and sequencing. ) Chair/Zun-mi-Dnulk Xfer(QC): 3 Toilet Transfer (QC): 3 Gait Training Does the Patient Walk?: Yes Walk 10 feet (QC): 4 Walk 50 ft with 2 Turns(QC): 4 Walk 150 ft (QC): 4 Gait Assistive Device: FWW Gait with FWW with CGA and skilled cues for increased step length and foot clearance; able to correct with cues; kyphotic posture noted with ambulation . Exercises Seated Therapy Exercises: Ankle pumps (12), Sit to stand (3), Long arc quads (12), Shoulder Abd (12), Hip flexion, Hamstring Curls (12), Hip abd/add (12) To increased LE strength for functional gains with transfers and ambulation. Treatments Functional safety education and energy conservation training impletmented. O2 sats monitored and with ambulation would drop to 87% but returned to 90% with deep breaths and rest. Assessment Limited functional activity tolerance and requires rest breaks. Tired post visit and requested to lie down. Follows cues well and is motivated to progress. PT Short Term Goals Short Term Goals Time Frame: Jan 03, 2021 Roll Left & Right: 6 Sit to lyin Lying to sitting on side of be: 6 Sit to stand: 4 Chair/ire-pk-ugwqr transfer: 4 Walk 10 feet: 4 Walk 50 feet with two turns: 4 Walk 150 feet: 4 PT Snf Goals Snf Goals PT Snf Goals Time Frame: Jan 17, 2021 Roll Left & Right (QC): 6 Sit to Lying (QC): 6 Lying-Sitting on Side/Bed(QC): 6 Sit to Stand (QC): 6 Chair/Dnp-oc-Esker Xfer(QC): 6 Toilet Transfer (QC): 6 Car Transfer (QC): 6 Does the Patient Walk: Yes Walk 10 feet (QC): 6 Walk 50ft with 2 Turns (QC): 6 Walk 150 ft (QC): 6 Walking 10ft on Uneven Surface: 6 1 Step (curb) (QC): 4 4 Steps (QC): 4 12 Steps (QC): 88 Picking up an Object (QC): 88 Wheel 50 feet with 2 turns (QC: 9 Wheel 150 feet: 9 PT Plan Problem List Problem List: Activity Tolerance, Functional Strength, Safety, Balance, Gait, Transfer, Bed Mobility Treatment/Plan Treatment Plan: Continue Plan of Care Treatment Plan: Education, Functional Activity Jennifer, Functional Strength, Group Therapy, Gait, Safety, Therapeutic Exercise, Transfers Treatment Duration: Jan 17, 2021 Frequency: At least 5 of 7 days/Wk (IRF) Estimated Hrs Per Day: 1.5 hours per day Patient and/or Family Agrees t: Yes Safety Risks/Education Patient Education: Gait Training, Safety Issues Teaching Recipient: Patient Teaching Methods: Demonstration, Discussion Discharge Recommendations Therapy Discharge Recommendati: Post Acute PT (HHC PT) Time/GCodes Time In: 830 Time Out: 930 Total Billed Treatment Time: 60 Total Billed Treatment visit GT 30 EX 15 FA 15 PRINCE CHARLTON PT Dec 28, 2020 11:19
--- NOTE | 2020-12-28 12:04 | Individualized Plan of Care ---
Individualized Plan of Care Rehab Nursing IPOC Order Admission Date Dec 27, 2020 at 09:20 Current Orders Orders Admission Arrival Bed Request (12/27/20 09:40) General/Regular (12/27/20 Lunch) Admission Order(Inpt,Obs,Sdc) (12/27/20 10:53) Vital Signs: Per Unit Policy ( 08,16,00 (12/27/20 10:53) Iker Hose (12/27/20 10:53) Sequential Compression Device .admit (12/27/20 10:53) Data Designer-Inpt Rehab Con (12/27/20 10:53) Rehab Nursing Orders-Ipoc (12/27/20 10:53) Physical Therapy Rehab Orders (12/27/20 10:53) Occupational Therapy Rehab Ord (12/27/20 10:53) Speech Therapy Rehab Orders (12/27/20 10:53) Cbc With Automated Diff (12/28/20 06:00) Comprehensive Metabolic Panel (12/28/20 06:00) Intake & Output 06,14,22 (12/27/20 10:53) Precautions (Aru) (12/27/20 10:53) Rehab-Intensity Of Therapy (12/27/20 10:53) Initiate Admission Nursing Pro .admission (12/27/20 10:53) Alprazolam Tablet (Xanax Tablet) (12/27/20 11:00) Calcium Carbonate Chew Tablet (Antacid C (12/27/20 11:00) Diphenhydramine Tablet (Benadryl Tablet) (12/27/20 11:00) Docusate Sodium Capsule (Colace Capsule) (12/27/20 21:00) Docusate Sodium Capsule (Colace Capsule) (12/27/20 11:00) Bisacodyl Suppository (Dulcolax Supposit (12/27/20 11:00) Lactulose Oral Solution (Enulose Oral So (12/27/20 11:00) Na Phos/Na Biphos Enema (Fleet Enema [place] (12/27/20 11:00) Guaifenesin/Codeine Syrup (Robitussin Ac (12/27/20 11:00) Loperamide Tablet (Imodium Tablet) (12/27/20 11:00) Melatonin Tablet (Melatonin Tablet) (12/27/20 11:00) Polyethylene Glycol Powder Pkt (Miralax (12/27/20 21:00) Ondansetron Oral Dissolve Tab (Zofran (12/27/20 11:00) Senna S Tablet (Senokot S Tablet) (12/27/20 21:00) Initiate Admission Nursing Pro .admission (12/27/20 10:53) Code/Resuscitation (12/27/20 10:55) Incentive Spirometry (Nursing) Q2H (12/27/20 10:55) Acetaminophen Tablet/Caplet (Tylenol T (12/27/20 11:00) Albuterol Inhaler (Ventolin Hfa) (12/27/20 14:00) Cefepime Injection (Maxipime Injection) (12/27/20 11:00) Docusate Sodium Capsule (Colace Capsule) (12/27/20 21:00) Anidulafungin Injection (Eraxis Injectio (12/28/20 09:00) Furosemide Injection (Lasix Injection) (12/28/20 09:00) Melatonin Tablet (Melatonin Tablet) (12/27/20 21:00) Ondansetron Injection (Zofran Injectio (12/27/20 11:00) Pantoprazole Tablet (Protonix Tablet) (12/27/20 21:00) Sodium Chloride Flush (Catheter Flush Sy (12/27/20 14:00) Guaifenesin Tablet (Mucinex Tablet) (12/27/20 21:00) Insulin Aspart (Novolog) (Novolog (Charg (12/27/20 11:00) Prednisone Tablet (Deltasone Tablet) (12/28/20 07:00) Consult Cardiology (12/27/20 10:55) Consult General Surgery (12/27/20 10:55) Consult Pulmonology (12/27/20 10:55) Incentive Spirometry Initial (12/27/20 10:55) Mat Initiate Protocol (12/27/20 10:55) Incentive Spirometry (Nursing) Q2H (12/27/20 10:55) Vte Contraindication (12/27/20 10:55) Patient Visit (12/27/20 ) Pt Eval Moderate Complexity (12/27/20 ) Exercise Therap, Ea 15 Min (12/27/20 ) Functional Activities, Ea 15 (12/27/20 ) Patient Visit (12/27/20 ) Speech Sound Lang Comp (12/27/20 ) Albuterol Inhaler (Ventolin Hfa) (12/27/20 21:00) Patient Visit (12/27/20 ) Ex Neuromuscular, Ea 15 Min (12/27/20 ) Consult Urology (12/28/20 11:32) Tamsulosin Capsule (Flomax Capsule) (12/28/20 18:00) Bethanechol Tablet (Urecholine Tablet) (12/28/20 16:00) Patient Visit (12/28/20 ) Gait Training, Ea 15 Min (12/28/20 ) Exercise Therap, Ea 15 Min (12/28/20 ) Functional Activities, Ea 15 (12/28/20 ) Rehab Nursing Orders: Ongoing Assess. of Cognitive Status, Ongoing Assess. of Function Status, Bladder Management, Bladder Scan, Bladder Training, Bowel Management, Bowel Training, Disease Management & Educaiton, DVT Prophylaxis, Fall Prevention, Fluid/Electrolyte/Nutrition Mgmt, Infection Prevention, Medication Management & Education, Management of Risks & Complications, Nutrition Management, Pain Management, Patient/Family Support, Safety Management Intensity of Therapy to be met Patient to be seen: Min.3h per day/5 of 7d PT IPOC Problem List: Activity Tolerance, Functional Strength, Safety, Balance, Gait, Transfer, Bed Mobility Treatment Plan: Continue Plan of Care Education, Functional Activity Jennifer, Functional Strength, Group Therapy, Gait, Safety, Therapeutic Exercise, Transfers Treatment Duration: Jan 17, 2021 Frequency: At least 5 of 7 days/Wk (IRF) Estimated Hrs Per Day: 1.5 hours per day OT IPOC Problems: Decreased Activ Tolerance, Impaired I ADL's, Impaired Self-Care Skills OT Treatment, Training and Edu: Yes Plan of Care: ADL Retraining, Functional Mobility, UE Funct Exercise/Act Treatment Duration: Jan 10, 2021 Frequency: At least 5 of 7 days/Wk (IRF) Estimated Hrs Per Day: 1.[address] IPOC Speech Therapy Treatment Plan: Discontinue ST Treatment Duration: Dec 27, 2020 Frequency: 1 time per week Estimated Hrs Per Day: .25 hour per day Data Designer/Case Mgmt Data Designer/Case Managemen: Discharge Planning Dietitian/Store Operations Manager Dietitian/Store Operations Manager to monitor nutritional status and make changes and/or recommendations as needed and work with speech pathology on dietary upgrades as the occur. Physician IPOC Medical Issues being managed closely and that require the 24 hour availability of a physician: Recent acute respiratory failure will be at high risk for decompensation and will need close observation for decline in function with physician oversight 19/05 Medical Issues: Bowel/Bladder Function, DVT Prophylaxis, Falls Precautions, Fluid/Electrolyte/Nutrition Balance, Infection Protection, Pain Management Brief Synthesis of Preadmission Screen, Post-Admission Evaluation, and Therapy Evaluations: PT OT will work to regain independence with ADL's and use AD to ambulate safely in order to return home. Medical Prognosis: Good Anticipated Length of Stay: 7 days MARY LAMBERT DO Dec 28, 2020 12:04
--- NOTE | 2020-12-28 12:04 | PM&R Progress Note ---
Subjective HPI/CC On Admission Date Seen by Provider: Dec 28, 2020 Time Seen by Provider: 11:45 Subjective/Events-last exam 12/28/20: Pt doing pretty well Maintained on antibiotics Having some retention so Dr. Simmons will see him Pt doing well otherwise Checked meds and labs Review of Systems General: Fatigue, Malaise Pulmonary: Dyspnea Objective Exam Vital Signs Vital Signs Date Time Temp Pulse Resp B/P (MAP) Pulse Ox O2 Delivery O2 Flow Rate FiO2 12/28/20 20:30 93 Nasal Cannula 6.00 12/28/20 17:03 68 133/63 (86) 12/28/20 16:00 36.2 20 12/27/20 14:59 44 Capillary Refill : General Appearance: No Apparent Distress, WD/WN, Chronically ill HEENT: PERRL/EOMI, Normal ENT Inspection, Pharynx Normal Neck: Full Range of Motion, Normal Inspection, Non Tender, Supple, Carotid Bruit Respiratory: Chest Non Tender, Lungs Clear, No Accessory Muscle Use, No Respiratory Distress, Crackles, Decreased Breath Sounds Cardiovascular: Regular Rate, Rhythm, No Edema, No Gallop, No JVD, No Murmur, Normal Peripheral Pulses Gastrointestinal: Normal Bowel Sounds, No Organomegaly, No Pulsatile Mass, Non Tender, Soft Back: Normal Inspection, No CVA Tenderness, No Vertebral Tenderness Extremity: Normal Capillary Refill, Normal Inspection, Normal Range of Motion, Non Tender, No Calf Tenderness, No Pedal Edema Neurologic/Psychiatric: Alert, Oriented x3, No Motor/Sensory Deficits, 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, Abnormal Gait, Motor Weakness Skin: Normal Color, Warm/Dry Lymphatic: No Adenopathy Results/Procedures Lab Laboratory Tests 12/28/20 09:52 Patient resulted labs reviewed. FIM Transfers Therapy Code Descriptions/Definitions Functional [place] Measure: 0=Not Assessed/NA 4=Minimal Assistance 1=Total Assistance 5=Supervision or Setup 2=Maximal Assistance 6=Modified [place] 3=Moderate Assistance 7=Complete IndependenceSCALE: Activities may be completed with or without assistive devices. 0-Yqxjrpytts-dsppccb completes the activity by him/herself with no assistance from a helper. 5-Set-up or Clean-up Assistance-helper sets up or cleans up; patient completes activity. [place] assists only prior to or following the activity. 4-Supervision or Touching Assistance-helper provides verbal cues and/or touching/steadying and/or contact guard assistance as patient completes activity. Assistance may be provided throughout the activity or intermittently. 3-Partial/Moderate Assistance-helper does LESS THAN HALF the effort. [place] lifts, holds or supports trunk or limbs, but provides less than half the effort. 2-Substantial/Maximal Assistance-helper does MORE THAN HALF the effort. [place] lifts or holds trunk or limbs and provides more than half the effort. 2-Hjhezrjyk-lekzmd does ALL the effort. Patient does none of the effort to complete the activity. Or, the assistance of 2 or more helpers is required for the patient to complete the activity. If activity was not attempted, code reason: 7-Patient Refused. 9-Not Applicable-not attempted and the patient did not perform the activity before the current illness, exacerbation or injury. 10-Not Attempted due to Environmental Limitations-(lack of equipment, weather restraints, etc.). 88-Not Attempted due to Medical Conditions or Safety Concerns. Roll Left to Right (QC): 6 Sit to Lying (QC): 4 (SBA for safety. ) Sit to Stand (QC): 3 (CGA with cues for safety and sequencing. ) Chair/Gvj-vu-Qzvws Xfer(QC): 3 Car Transfer (QC): 4 Gait Training Does the Patient Walk?: Yes Walk 10 feet (QC): 4 Walk 50 ft with 2 Turns(QC): 4 Walk 150 ft (QC): 4 Walking 10ft/uneven surface-QC: 4 Gait Assistive Device: FWW Wheelchair Training Does the Pt Use a Wheelchair?: No Wheel 50 ft with 2 turns (QC): 9 Wheel 150 ft (QC): 9 Stair Training #of Steps: 1 1 Step (curb) (QC): 4 4 Steps (QC): 88 12 Steps (QC): 88 Balance Picking up an Object (QC): 7 (Patient refuses due to back pain) ADL-Treatment Eating (QC): 6 Oral Hygiene (QC): 7 Shower/Bathe Self (QC): 3 (Min assist with LE) Upper Body Dressing (QC): 4 Lower Body Dressing (QC): 3 (Min assist to don over right foot.) On/Off Footwear (QC): 2 Toileting Hygiene (QC): 1 (Catheter) Assessment/Plan Assessment and Plan Assess & Plan/Chief Complaint Assessment: Critical illness myopathy Acute on chronic respiratory failure Chronic hypoxia requires O2 dependence at home GIB Acute blood loss anemia PNA CHF AF Edema Urinary retention and OAB consulted Dr Simmons 12/28/20 Plan: Monitor O2 Lasix DC catheter Monitor pain IRF protocol 12/28/20: Monitor O2 Abx to complete Dr Simmons consult Bladder meds (1) Acute and chronic respiratory failure with hypoxia Status: Acute (2) PNA (pneumonia) Status: Acute (3) Severe sepsis Status: Acute (4) Rectal bleeding Status: Acute (5) Wheezing Status: Acute (6) T2DM (type 2 diabetes mellitus) Status: Chronic (7) Atrial fibrillation with RVR Status: Acute (8) Dyspnea (9) CVA (cerebral vascular accident) Status: Acute (10) Severe anemia Status: Acute (11) GI bleed Status: Acute MARY LAMBERT DO Dec 28, 2020 12:04
--- NOTE | 2020-12-28 12:11 | Occupational Ther Daily Note ---
OT Current Status-Daily Note Subjective Pt alert, sitting in recliner. Pt agrees to therapy. No c/o pain. Mental Status/Objective Patient Orientation: Person, Place, Time, Situation ADL-Treatment 1st session-Pt takes increased time to complete all tasks due to low endurance requiring multiple recovery breaks. Pt declines shower, agrees to sponge bath. After set up, pt able to complete all bathing with SBA, standing to cleanse buttocks. After set up, pt able to complete all dressing with SBA, lower body dressing completed with AE. Pt then ambulated to sink to complete oral care by self, initially standing then pt fatigued and required a chair to sit. Pt transferred to toilet with SBA and completed hygiene/clothing manipulation with SBA. Pt washed hands at sink, SBA. Pt sat in recliner and set up own meal using regular utensils to eat. After therapy, pt sitting in recliner with call light/phone in reach. All needs met in room. 2nd session-Pt's in room and brought clothes that pt wants to change into. After set up, pt able to don shirt by self. SBA to don/doff pants using animal sticker. Set up for footwear using sock aide. Pt completed grooming sitting in recliner. After session, pt sitting in recliner with call light/phone in reach. present in room. All needs met. Therapy Code Descriptions/Definitions Functional [place] Measure: 0=Not Assessed/NA 4=Minimal Assistance 1=Total Assistance 5=Supervision or Setup 2=Maximal Assistance 6=Modified [place] 3=Moderate Assistance 7=Complete IndependenceSCALE: Activities may be completed with or without assistive devices. 6-Tneqjlzkut-lfhdynp completes the activity by him/herself with no assistance from a helper. 5-Set-up or Clean-up Assistance-helper sets up or cleans up; patient completes activity. [place] assists only prior to or following the activity. 4-Supervision or Touching Assistance-helper provides verbal cues and/or touching/steadying and/or contact guard assistance as patient completes activity. Assistance may be provided throughout the activity or intermittently. 3-Partial/Moderate Assistance-helper does LESS THAN HALF the effort. [place] lifts, holds or supports trunk or limbs, but provides less than half the effort. 2-Substantial/Maximal Assistance-helper does MORE THAN HALF the effort. [place] lifts or holds trunk or limbs and provides more than half the effort. 3-Xdfiazmia-xhhvub does ALL the effort. Patient does none of the effort to complete the activity. Or, the assistance of 2 or more helpers is required for the patient to complete the activity. If activity was not attempted, code reason: 7-Patient Refused. 9-Not Applicable-not attempted and the patient did not perform the activity before the current illness, exacerbation or injury. 10-Not Attempted due to Environmental Limitations-(lack of equipment, weather restraints, etc.). 88-Not Attempted due to Medical Conditions or Safety Concerns. Eating (QC): 6 Oral Hygiene (QC): 4 Shower/Bathe Self (QC): 4 Upper Body Dressing (QC): 5 Lower Body Dressing (QC): 4 On/Off Footwear: 5 Toileting Hygiene (QC): 4 Toilet Transfer (QC): 4 OT Short Term Goals Short Term Goals Time Frame: Jan 03, 2021 Eatin Oral hygiene: 5 Toileting hygiene: 4 Shower/bathe self: 4 Upper body dressin Lower body dressin (with AE) Putting on/taking off footwear: 4 (with AE) OT Security Strategist Goals Security Strategist Goals Time Frame: Jan 10, 2021 Eating (QC): 6 Oral Hygiene (QC): 6 Toileting Hygiene (QC): 6 Shower/Bathe Self (QC): 5 Upper Body Dressing (QC): 6 Lower Body Dressing (QC): 6 On/Off Footwear (QC): 6 (with AE) Additional Goals: 1-Demonstrate ADL Tasks, 2-Verbalize Understanding, 3-ImproveStrength/Jennifer 1=Demonstrate adherence to instructed precautions during ADL tasks. 2=Patient will verbalize/demonstrate understanding of assistive devices/modifications for ADL. 3=Patient will improve strength/tolerance for activity to enable patient to perform ADL's. OT Education/Plan Problem List/Assessment Assessment: Decreased Activ Tolerance, Impaired Self-Care Skills Discharge Recommendations Plan/Recommendations: Continue POC Treatment Plan/Plan of Care Patient would benefit from OT for education, treatment and training to promote independence in ADL's, mobility, safety and/or upper extremity function for ADL's. Plan of Care: ADL Retraining, Functional Mobility, UE Funct Exercise/Act Treatment Duration: Jan 10, 2021 Frequency: At least 5 of 7 days/Wk (IRF) Estimated Hrs Per Day: 1.5 hours per day Agreement: Yes Rehab Potential: Good Time/GCodes Start Time: 11:00 (1300) Stop Time: 12:00 (1330) Total Time Billed (hr/min): 90 Billed Treatment Time 1 visit (9144-8170)- ADL 4 (60 min) 2nd visit ([id number])- ADL 2 (30 min) PRINCE SUAZO Dec 28, 2020 12:11
--- NOTE | 2020-12-28 14:26 | Physical Therapy Daily Note ---
PT Daily Note-Current Subjective Agreeable to PT. No complaints. Pt's is present. Mental Status Patient Orientation: Person, Place, Time, Situation Transfers SCALE: Activities may be completed with or without assistive devices. 8-Wcxbsdqejm-gajfcbu completes the activity by him/herself with no assistance from a helper. 5-Set-up or Clean-up Assistance-helper sets up or cleans up; patient completes activity. [place] assists only prior to or following the activity. 4-Supervision or Touching Assistance-helper provides verbal cues and/or touching/steadying and/or contact guard assistance as patient completes activity. Assistance may be provided throughout the activity or intermittently. 3-Partial/Moderate Assistance-helper does LESS THAN HALF the effort. [place] lifts, holds or supports trunk or limbs, but provides less than half the effort. 2-Substantial/Maximal Assistance-helper does MORE THAN HALF the effort. [place] lifts or holds trunk or limbs and provides more than half the effort. 8-Hwlospnlk-bwebgw does ALL the effort. Patient does none of the effort to complete the activity. Or, the assistance of 2 or more helpers is required for the patient to complete the activity. If activity was not attempted, code reason: 7-Patient Refused. 9-Not Applicable-not attempted and the patient did not perform the activity before the current illness, exacerbation or injury. 10-Not Attempted due to Environmental Limitations-(lack of equipment, weather restraints, etc.). 88-Not Attempted due to Medical Conditions or Safety Concerns. Sit to Stand (QC): 4 Toilet Transfer (QC): 4 SB to CGA with tranfsers with intermittent cues for sequencing. Gait Training Distance: 150 ft x 5 Walk 150 ft (QC): 4 Gait Assistive Device: FWW Pt able to correct step length/clearance with cues; kyphotic posture noted during gait, longstanding bony changes. Treatments O2 in situ during and post visit at 6l/min Assessment Current Status: Good Progress Increased [place] to gait this visit. PT Short Term Goals Short Term Goals Time Frame: Jan 03, 2021 Roll Left & Right: 6 Sit to lyin Lying to sitting on side of be: 6 Sit to stand: 4 Chair/itr-jh-wwltt transfer: 4 Walk 10 feet: 4 Walk 50 feet with two turns: 4 Walk 150 feet: 4 PT Fci Goals Fci Goals PT Carpentry Supervisor Goals Time Frame: Jan 17, 2021 Roll Left & Right (QC): 6 Sit to Lying (QC): 6 Lying-Sitting on Side/Bed(QC): 6 Sit to Stand (QC): 6 Chair/Krt-qt-Rgioq Xfer(QC): 6 Toilet Transfer (QC): 6 Car Transfer (QC): 6 Does the Patient Walk: Yes Walk 10 feet (QC): 6 Walk 50ft with 2 Turns (QC): 6 Walk 150 ft (QC): 6 Walking 10ft on Uneven Surface: 6 1 Step (curb) (QC): 4 4 Steps (QC): 4 12 Steps (QC): 88 Picking up an Object (QC): 88 Wheel 50 feet with 2 turns (QC: 9 Wheel 150 feet: 9 PT Plan Problem List Problem List: Activity Tolerance, Functional Strength, Safety, Balance, Gait, Transfer, Bed Mobility Treatment/Plan Treatment Plan: Continue Plan of Care Treatment Plan: Education, Functional Activity Jennifer, Functional Strength, Group Therapy, Gait, Safety, Therapeutic Exercise, Transfers Treatment Duration: Jan 17, 2021 Frequency: At least 5 of 7 days/Wk (IRF) Estimated Hrs Per Day: 1.5 hours per day Patient and/or Family Agrees t: Yes Safety Risks/Education Patient Education: Gait Training Teaching Recipient: Patient Teaching Methods: Discussion Response to Teaching: Return Demonstration Time/GCodes Time In: 1340 Time Out: 1010 Total Billed Treatment Time: 30 Total Billed Treatment visit Gt 30 PRINCE CHARLTON PT Dec 28, 2020 14:26
[2020-12-28] MEDS: BETHANECHOL 25 MG (URECHOLINE) TAB PO SCH ×2 (15:30→21:10)
[2020-12-28 16:00] VITALS: BP 171/72
--- NOTE | 2020-12-28 16:01 | CONSULTATION REPORT ---
DATE OF SERVICE: 12/28/2020 ATTENDING PHYSICIAN: Dr. Harrison. SUMMARY: After reviewing the patient's record at the office and at the hospital, this is an 85-year-old white man known to me from before, seen on a yearly basis for BPH and neurogenic bladder with history of retention. He was doing well on Uroxatral 10 mg daily and Urecholine 25 before meals and bedtime as well as refused a rectal exam. His PSA on 12/13 of last year, the last time I saw him was 0.69. He missed his appointment this past November and rescheduled it. He is being admitted by Dr. Harrison and his catheter was just removed and we are watching him for symptoms or problem with retention. IMPRESSION: BPH and neurogenic bladder with history of retention. PLAN: Resume Uroxatral 10 mg daily or Flomax 0.4 mg daily, whichever is on the hospital formulary and resume the Urecholine 25 mg before meals and at bedtime. We will follow him with a bladder scan postvoid residual and manage accordingly. The plan was fully explained to the patient. Job ID: [id number] DocumentID: [id number] Dictated Date: 12/28/2020 13:15:05 Pulp Bleacher Date: 12/28/2020 15:59:45 Dictated By: CALLY GRUBBS MD
[2020-12-28 17:03] VITALS: BP 133/63
[2020-12-28] MEDS: TAMSULOSIN 0.4 MG (FLOMAX) CAP PO SCH (18:07)
[2020-12-28] MEDS: MELATONIN 3 MG TABLET PO SCH (21:10)
[2020-12-28] MEDS: ACETAMINOPHEN 325 MG TABLET PO PRN (21:16)
[2020-12-29] MEDS: CATHETER FLUSH 10 ML SYR IV SCH ×4 (03:47→21:09)
[2020-12-29] MEDS: CEFEPIME INJECTION 1,000 MG in WATER (STERILE) FOR INJECTION 10 ML IV SCH ×3 (03:47→18:36)
[2020-12-29 05:46] VITALS: BP 142/66
[2020-12-29] MEDS: predniSONE 20 MG TAB PO SCH (06:32)
[2020-12-29] MEDS: BETHANECHOL 25 MG (URECHOLINE) TAB PO SCH ×4 (06:32→21:00)
[2020-12-29] MEDS: RT-ALBUTEROL INHALER HFA (VENTOLIN HFA) 18 GM IH SCH ×2 (07:25→22:38)
--- NOTE | 2020-12-29 07:54 | Occupational Ther Daily Note ---
OT Current Status-Daily Note Subjective Pt alert, sitting in recliner. Pt agrees to therapy. No c/o pain at this time. Mental Status/Objective Patient Orientation: Person, Place, Time, Situation Attachments: IV, Oxygen (5L) ADL-Treatment Pt declines shower, agrees to sponge bath. Pt states that he fell in the shower and does not want to try again. Discussed using shower seat and pt states that he has one at home. Pt set up for sponge bath, requiring SBA in standing to cleanse buttocks. After set up, pt completes upper body dressing by self. Using sock aide and reach, pt able to don/doff socks with verbal cues for positioning. Using beaming machine operator, pt is able to thread lower body clothing over feet then SBA in standing to hike pants over hips. Pt initially stands at sink using counter to stabilize, fatigues quickly and requires chair to finish oral care (SBA in standing, independent in sitting). Pt ambulated back to recliner and donned heavier shirt. After session, pt sitting in recliner with call light/phone in reach. All needs met in room. Therapy Code Descriptions/Definitions Functional [place] Measure: 0=Not Assessed/NA 4=Minimal Assistance 1=Total Assistance 5=Supervision or Setup 2=Maximal Assistance 6=Modified [place] 3=Moderate Assistance 7=Complete IndependenceSCALE: Activities may be completed with or without assistive devices. 7-Dtikuejiol-czpyycb completes the activity by him/herself with no assistance f rom a helper. 5-Set-up or Clean-up Assistance-helper sets up or cleans up; patient completes activity. [place] assists only prior to or following the activity. 4-Supervision or Touching Assistance-helper provides verbal cues and/or touching/steadying and/or contact guard assistance as patient completes activity. Assistance may be provided throughout the activity or intermittently. 3-Partial/Moderate Assistance-helper does LESS THAN HALF the effort. [place] lifts, holds or supports trunk or limbs, but provides less than half the effort. 2-Substantial/Maximal Assistance-helper does MORE THAN HALF the effort. [place] lifts or holds trunk or limbs and provides more than half the effort. 5-Wbgahnkmh-ovihru does ALL the effort. Patient does none of the effort to complete the activity. Or, the assistance of 2 or more helpers is required for the patient to complete the activity. If activity was not attempted, code reason: 7-Patient Refused. 9-Not Applicable-not attempted and the patient did not perform the activity before the current illness, exacerbation or injury. 10-Not Attempted due to Environmental Limitations-(lack of equipment, weather restraints, etc.). 88-Not Attempted due to Medical Conditions or Safety Concerns. Eating (QC): 6 (Opens packages/containers by self and uses regular utensils to eat.) Oral Hygiene (QC): 4 Bathing Location: L Arm, R Arm, L Upper Leg, R Upper Leg, L Lower Leg (including foot), R Lower Leg (including foot), Chest, Abdomen, Buttocks, Perineal Area Shower/Bathe Self (QC): 4 Upper Body Dressing (QC): 5 Lower Body Dressing (QC): 4 On/Off Footwear: 4 Pt takes increased time to complete tasks due to low endurance and SOA which requires lengthy recovery breaks. Pt attempts to push through though increased SOA and weakness occur and pt needs reminded to slow down. OT Short Term Goals Short Term Goals Time Frame: Jan 03, 2021 Eatin Oral hygiene: 5 Toileting hygiene: 4 Shower/bathe self: 4 Upper body dressin Lower body dressin (with AE) Putting on/taking off footwear: 4 (with AE) OT Group Home Goals Group Home Goals Time Frame: Jan 10, 2021 Eating (QC): 6 Oral Hygiene (QC): 6 Toileting Hygiene (QC): 6 Shower/Bathe Self (QC): 5 Upper Body Dressing (QC): 6 Lower Body Dressing (QC): 6 On/Off Footwear (QC): 6 (with AE) Additional Goals: 1-Demonstrate ADL Tasks, 2-Verbalize Understanding, 3- ImproveStrength/Jennifer 1=Demonstrate adherence to instructed precautions during ADL tasks. 2=Patient will verbalize/demonstrate understanding of assistive devices/modifications for ADL. 3=Patient will improve strength/tolerance for activity to enable patient to perform ADL's. OT Education/Plan Problem List/Assessment Assessment: Decreased Activ Tolerance, Decreased UE Strength Discharge Recommendations Plan/Recommendations: Continue POC Treatment Plan/Plan of Care Patient would benefit from OT for education, treatment and training to promote independence in ADL's, mobility, safety and/or upper extremity function for ADL's. Plan of Care: ADL Retraining, Functional Mobility, UE Funct Exercise/Act Treatment Duration: Jan 10, 2021 Frequency: At least 5 of 7 days/Wk (IRF) Estimated Hrs Per Day: 1.5 hours per day Agreement: Yes Rehab Potential: Good Time/GCodes Start Time: 07:15 Stop Time: 08:45 Total Time Billed (hr/min): 90 Billed Treatment Time 1 visit-ADL 6 (90 min) PRINCE SUZAO Dec 29, 2020 07:54
[2020-12-29 08:00] VITALS: BP 101/48
[2020-12-29] MEDS: guaiFENesin (MUCINEX) 600 MG TAB PO SCH ×2 (08:20→21:00)
[2020-12-29] MEDS: PANTOPRAZOLE 40 MG (PROTONIX) TAB PO SCH ×2 (08:21→21:01)
[2020-12-29] MEDS: DOCUSATE SODIUM 100 MG (COLACE) CAP PO SCH ×4 (08:22→21:08)
[2020-12-29] MEDS: FUROSEMIDE 40 MG/4 ML INJ (LASIX) IVP SCH (08:22)
[2020-12-29] MEDS: ANIDULAFUNGIN INJECTION 100 MG in NS (IVPB) 100 ML IV SCH (08:22)
[2020-12-29] MEDS: polyethylene glycoL POWDER 17 GM (MIRALAX) PACK PO SCH ×2 (08:23→21:09)
[2020-12-29] MEDS: SENNA W/DOCUSATE (SENOKOT S) TABLET PO SCH ×2 (08:23→21:09)
--- NOTE | 2020-12-29 09:33 | Progress Note - Urology ---
Progress Note-Urology Progress Notes/Assess & Plan Progress/Assessment & Plan BACK ON HOME MEDICINES. VOIDING ON OWN. WE MWILL FOLLOW WITH PVR CHECKS Final Diagnosis RETENTION CALLY GRUBBS MD Dec 29, 2020 09:33
--- NOTE | 2020-12-29 10:14 | Physical Therapy Daily Note ---
PT Daily Note-Current Subjective Pt agreeable to PT. Reports feeling tired after treatment, but noted he enjoys the activity. Mental Status Patient Orientation: Person, Place, Time, Situation Transfers SCALE: Activities may be completed with or without assistive devices. 3-Ssqqiajzjd-gntaxry completes the activity by him/herself with no assistance from a helper. 5-Set-up or Clean-up Assistance-helper sets up or cleans up; patient completes activity. [place] assists only prior to or following the activity. 4-Supervision or Touching Assistance-helper provides verbal cues and/or touching/steadying and/or contact guard assistance as patient completes activi ty. Assistance may be provided throughout the activity or intermittently. 3-Partial/Moderate Assistance-helper does LESS THAN HALF the effort. [place] lifts, holds or supports trunk or limbs, but provides less than half the effort. 2-Substantial/Maximal Assistance-helper does MORE THAN HALF the effort. [place] lifts or holds trunk or limbs and provides more than half the effort. 5-Bwchrfohi-wqycly does ALL the effort. Patient does none of the effort to complete the activity. Or, the assistance of 2 or more helpers is required for the patient to complete the activity. If activity was not attempted, code reason: 7-Patient Refused. 9-Not Applicable-not attempted and the patient did not perform the activity before the current illness, exacerbation or injury. 10-Not Attempted due to Environmental Limitations-(lack of equipment, weather restraints, etc.). 88-Not Attempted due to Medical Conditions or Safety Concerns. Sit to Stand (QC): 4 Chair/Buv-nm-Icugz Xfer(QC): 4 Gait Training Does the Patient Walk?: Yes Walk 150 ft (QC): 4 Gait Assistive Device: FWW 125 ft, 50 ft x 3; 150 ft with FWW with SB-CGA. Skilled cues to increase step length; corrects with cuing. Stair Training Stair Training: Handrails/: 1 handrail 4 Steps (QC): 3 (CGA with cues for sequencing. ) Exercises Supine Ex: Ankle pumps, Quad Set, Glut sets, Heel Slides, Short Arc Quads, Hip abd/add Supine Reps: 15 (to faciliate LE strength to progress functional activity tolerane. ) NuStep Minutes: 10 (level 2) Treatments Functional gait, transfers and strength training to progress mod indep mobility. Assessment Current Status: Good Progress Transfers improving and gait distance progressing. Increased functional act tolerance. PT Short Term Goals Short Term Goals Time Frame: Jan 03, 2021 Roll Left & Right: 6 Sit to lyin Lying to sitting on side of be: 6 Sit to stand: 4 (met) Chair/rdc-kl-uqkla transfer: 4 (met) Walk 10 feet: 4 Walk 50 feet with two turns: 4 Walk 150 feet: 4 (met) PT Senior Living Goals Data Warehousing Specialist Goals PT Data Warehousing Specialist Goals Time Frame: Jan 17, 2021 Roll Left & Right (QC): 6 Sit to Lying (QC): 6 Lying-Sitting on Side/Bed(QC): 6 Sit to Stand (QC): 6 Chair/Rvr-nb-Uuqkf Xfer(QC): 6 Toilet Transfer (QC): 6 Car Transfer (QC): 6 Does the Patient Walk: Yes Walk 10 feet (QC): 6 Walk 50ft with 2 Turns (QC): 6 Walk 150 ft (QC): 6 Walking 10ft on Uneven Surface: 6 1 Step (curb) (QC): 4 4 Steps (QC): 4 12 Steps (QC): 88 Picking up an Object (QC): 88 Wheel 50 feet with 2 turns (QC: 9 Wheel 150 feet: 9 PT Plan Problem List Problem List: Activity Tolerance, Functional Strength, Safety, Balance, Gait, Transfer, Bed Mobility Treatment/Plan Treatment Plan: Continue Plan of Care Treatment Plan: Education, Functional Activity Jennifer, Functional Strength, G roup Therapy, Gait, Safety, Therapeutic Exercise, Transfers Treatment Duration: Jan 17, 2021 Frequency: At least 5 of 7 days/Wk (IRF) Estimated Hrs Per Day: 1.5 hours per day Patient and/or Family Agrees t: Yes Safety Risks/Education Patient Education: Transfer Techniques, Safety Issues Teaching Recipient: Patient Teaching Methods: Demonstration, Discussion Response to Teaching: Reinforcement Needed Time/GCodes Time In: 900 Time Out: 1015 Total Billed Treatment Time: 75 Total Billed Treatment visit GT 30 EX 30 FA 15 PRINCE CHARLTON PT Dec 29, 2020 10:14
--- NOTE | 2020-12-29 11:34 | PM&R Progress Note ---
Subjective HPI/CC On Admission Date Seen by Provider: Dec 29, 2020 Time Seen by Provider: 11:45 Subjective/Events-last exam 12/29/20: Patient doing well Bladder scan initiated Urecholine and Flomax ordered as he takes at home 6 stools yesterday Slept well 12/28/20: Pt doing pretty well Maintained on antibiotics Having some retention so Dr. Simmons will see him Pt doing well otherwise Checked meds and labs Review of Systems General: Fatigue, Malaise Neurological: Weakness Objective Exam Vital Signs Vital Signs Date Time Temp Pulse Resp B/P (MAP) Pulse Ox O2 Delivery O2 Flow Rate FiO2 12/30/20 05:50 36.2 77 18 132/60 (84) 95 High Flow N/C 6.00 12/27/20 14:59 44 Capillary Refill : General Appearance: No Apparent Distress, WD/WN, Chronically ill HEENT: PERRL/EOMI, Normal ENT Inspection, Pharynx Normal Neck: Full Range of Motion, Normal Inspection, Non Tender, Supple, Carotid Bruit Respiratory: Chest Non Tender, Lungs Clear, No Accessory Muscle Use, No Respiratory Distress, Crackles, Decreased Breath Sounds Cardiovascular: Regular Rate, Rhythm, No Edema, No Gallop, No JVD, No Murmur, Normal Peripheral Pulses Gastrointestinal: Normal Bowel Sounds, No Organomegaly, No Pulsatile Mass, Non Tender, Soft Back: Normal Inspection, No CVA Tenderness, No Vertebral Tenderness Extremity: Normal Capillary Refill, Normal Inspection, Normal Range of Motion, Non Tender, No Calf Tenderness, No Pedal Edema Neurologic/Psychiatric: Alert, Oriented x3, No Motor/Sensory Deficits, 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, Abnormal Gait, Motor Weakness Skin: Normal Color, Warm/Dry Lymphatic: No Adenopathy Results/Procedures Lab Patient resulted labs reviewed. FIM Transfers Therapy Code Descriptions/Definitions Functional [place] Measure: 0=Not Assessed/NA 4=Minimal Assistance 1=Total Assistance 5=Supervision or Setup 2=Maximal Assistance 6=Modified [place] 3=Moderate Assistance 7=Complete IndependenceSCALE: Activities may be completed with or without assistive devices. 1-Roresrelzr-gjkrjny completes the activity by him/herself with no assistance from a helper. 5-Set-up or Clean-up Assistance-helper sets up or cleans up; patient completes activity. [place] assists only prior to or following the activity. 4-Supervision or Touching Assistance-helper provides verbal cues and/or touching/steadying and/or contact guard assistance as patient completes activity. Assistance may be provided throughout the activity or intermittently. 3-Partial/Moderate Assistance-helper does LESS THAN HALF the effort. [place] lifts, holds or supports trunk or limbs, but provides less than half the effort. 2-Substantial/Maximal Assistance-helper does MORE THAN HALF the effort. [place] lifts or holds trunk or limbs and provides more than half the effort. 1-Hazwlavpa-shhpvg does ALL the effort. Patient does none of the effort to complete the activity. Or, the assistance of 2 or more helpers is required for the patient to complete the activity. If activity was not attempted, code reason: 7-Patient Refused. 9-Not Applicable-not attempted and the patient did not perform the activity before the current illness, exacerbation or injury. 10-Not Attempted due to Environmental Limitations-(lack of equipment, weather restraints, etc.). 88-Not Attempted due to Medical Conditions or Safety Concerns. Roll Left to Right (QC): 6 Sit to Lying (QC): 4 (SBA for safety. ) Sit to Stand (QC): 4 Chair/Vlq-oa-Zcnle Xfer(QC): 4 Car Transfer (QC): 4 Gait Training Does the Patient Walk?: Yes Distance: 150 ft x 5 Walk 10 feet (QC): 4 Walk 50 ft with 2 Turns(QC): 4 Walk 150 ft (QC): 4 Walking 10ft/uneven surface-QC: 4 Gait Assistive Device: FWW Wheelchair Training Does the Pt Use a Wheelchair?: No Wheel 50 ft with 2 turns (QC): 9 Wheel 150 ft (QC): 9 Stair Training Stair Training: Handrails/: 1 handrail #of Steps: 1 1 Step (curb) (QC): 4 4 Steps (QC): 3 (CGA with cues for sequencing. ) 12 Steps (QC): 88 Balance Picking up an Object (QC): 7 (Patient refuses due to back pain) ADL-Treatment Eating (QC): 6 (Opens packages/containers by self and uses regular utensils to eat.) Oral Hygiene (QC): 4 Bathing Location: L Arm, R Arm, L Upper Leg, R Upper Leg, L Lower Leg (including foot), R Lower Leg (including foot), Chest, Abdomen, Buttocks, Perineal Area Shower/Bathe Self (QC): 4 Upper Body Dressing (QC): 5 Lower Body Dressing (QC): 4 On/Off Footwear (QC): 4 Toileting Hygiene (QC): 4 Toilet Transfer (QC): 4 Assessment/Plan Assessment and Plan Assess & Plan/Chief Complaint Assessment: Critical illness myopathy Acute on chronic respiratory failure Chronic hypoxia requires O2 dependence at home GIB Acute blood loss anemia PNA CHF AF Edema Urinary retention and OAB consulted Dr Simmons 12/28/20 Plan: Monitor O2 Lasix DC catheter Monitor pain IRF protocol 12/28/20: Monitor O2 Abx to complete Dr Simmons consult Bladder meds 12/29/20: Bladder meds O2 IRF protocol (1) Acute and chronic respiratory failure with hypoxia Status: Acute (2) PNA (pneumonia) Status: Acute (3) Severe sepsis Status: Acute (4) Rectal bleeding Status: Acute (5) Wheezing Status: Acute (6) T2DM (type 2 diabetes mellitus) Status: Chronic (7) Atrial fibrillation with RVR Status: Acute (8) Dyspnea (9) CVA (cerebral vascular accident) Status: Acute (10) Severe anemia Status: Acute (11) GI bleed Status: Acute MRAY LAMBERT DO Dec 29, 2020 11:34
--- NOTE | 2020-12-29 14:10 | Physical Therapy Daily Note ---
PT Daily Note-Current Subjective Patient in recliner pre tx, agrees to PT, has no complaints of pain Appearance Patient in recliner post tx with nurse call, phone, tray, all needs met. Mental Status Patient Orientation: Person, Place, Situation, Normal For Age Attachments: Oxygen Transfers SCALE: Activities may be completed with or without assistive devices. 4-Aixetmzhnd-pacgyvx completes the activity by him/herself with no assistance from a helper. 5-Set-up or Clean-up Assistance-helper sets up or cleans up; patient completes activity. [place] assists only prior to or following the activity. 4-Supervision or Touching Assistance-helper provides verbal cues and/or touching/steadying and/or contact guard assistance as patient completes ac tivity. Assistance may be provided throughout the activity or intermittently. 3-Partial/Moderate Assistance-helper does LESS THAN HALF the effort. [place] lifts, holds or supports trunk or limbs, but provides less than half the effort. 2-Substantial/Maximal Assistance-helper does MORE THAN HALF the effort. [place] lifts or holds trunk or limbs and provides more than half the effort. 0-Icppnzlsq-mvdkpd does ALL the effort. Patient does none of the effort to complete the activity. Or, the assistance of 2 or more helpers is required for the patient to complete the activity. If activity was not attempted, code reason: 7-Patient Refused. 9-Not Applicable-not attempted and the patient did not perform the activity before the current illness, exacerbation or injury. 10-Not Attempted due to Environmental Limitations-(lack of equipment, weather restraints, etc.). 88-Not Attempted due to Medical Conditions or Safety Concerns. Sit to Stand (QC): 4 Chair/Igw-rp-Qthxs Xfer(QC): 4 SBA Gait Training Distance: 120'x2 Walk 10 feet (QC): 4 Walk 50 ft with 2 Turns(QC): 4 Gait Persons Needed: 1 Gait Assistive Device: FWW slow but steady ambulation Exercises LAQ alternating for 5 min Treatments endurance training, ambulation Assessment Current Status: Fair Progress improving endurance and general mobility PT Short Term Goals Short Term Goals Time Frame: Jan 03, 2021 Roll Left & Right: 6 Sit to lyin Lying to sitting on side of be: 6 Sit to stand: 4 (met) Chair/vjh-cx-zhwcl transfer: 4 (met) Walk 10 feet: 4 Walk 50 feet with two turns: 4 Walk 150 feet: 4 (met) PT Long-Term Goals Long-Term Goals PT Electric Cutter Operator Goals Time Frame: Jan 17, 2021 Roll Left & Right (QC): 6 Sit to Lying (QC): 6 Lying-Sitting on Side/Bed(QC): 6 Sit to Stand (QC): 6 Chair/Qjt-lc-Slqav Xfer(QC): 6 Toilet Transfer (QC): 6 Car Transfer (QC): 6 Does the Patient Walk: Yes Walk 10 feet (QC): 6 Walk 50ft with 2 Turns (QC): 6 Walk 150 ft (QC): 6 Walking 10ft on Uneven Surface: 6 1 Step (curb) (QC): 4 4 Steps (QC): 4 12 Steps (QC): 88 Picking up an Object (QC): 88 Wheel 50 feet with 2 turns (QC: 9 Wheel 150 feet: 9 PT Plan Problem List Problem List: Activity Tolerance, Functional Strength, Safety, Balance, Gait, Transfer, ROM Treatment/Plan Treatment Plan: Continue Plan of Care Treatment Plan: Education, Functional Activity Jennifer, Functional Strength, Group Therapy, Gait, Safety, Therapeutic Exercise, Transfers Treatment Duration: Jan 17, 2021 Frequency: At least 5 of 7 days/Wk (IRF) Estimated Hrs Per Day: 1.5 hours per day Patient and/or Family Agrees t: Yes Safety Risks/Education Patient Education: Gait Training, Transfer Techniques, Correct Positioning, Safety Issues Teaching Recipient: Patient Teaching Methods: Demonstration, Discussion Response to Teaching: Reinforcement Needed Time/GCodes Time In: 1345 Time Out: 1400 Total Billed Treatment Time: 15 Total Billed Treatment 1 visit GT 15' ISAAK DE JESUS PT Dec 29, 2020 14:10
[2020-12-29 16:05] VITALS: BP 129/60
[2020-12-29] MEDS: TAMSULOSIN 0.4 MG (FLOMAX) CAP PO SCH (18:03)
[2020-12-29] MEDS ORDERED: CATHETER FLUSH 10 ML SYR IV PRN (19:30)
[2020-12-29] MEDS: MELATONIN 3 MG TABLET PO SCH (21:00)
[2020-12-29] MEDS: ACETAMINOPHEN 325 MG TABLET PO PRN (21:02)
[2020-12-30] MEDS: CEFEPIME INJECTION 1,000 MG in WATER (STERILE) FOR INJECTION 10 ML IV SCH ×3 (03:53→18:02)
[2020-12-30] MEDS: CATHETER FLUSH 10 ML SYR IV SCH ×6 (03:54→22:38)
[2020-12-30 05:50] VITALS: BP 132/60
--- NOTE | 2020-12-30 05:54 | Pulmonary Progress Note ---
Standard Progress Note Progress Notes Date Seen by Provider: Dec 30, 2020 Time Seen by Provider: 05:49 No complications noted. Assessment & Plan Pneumonia with sepsis - no fever -COVID negative - Cefepime and eraxis -Continue lasix -Last CXR showed improvement. Will repeat CXR -Repeat labs -MRSA swab is negative -Currently on 6 liter NC Acute on chronic respiratory failure Severe oxygen dependent COPD - He uses 6 liters of oxygen at home Duonebs metabolic lactic acidosis - improved Afib - hx Eliquis T2DM SSI HTN HLD BPH Continue home meds BRITTANY BARRIOS DO Dec 30, 2020 05:54
[2020-12-30 05:58] LABS: BASOPHILS % (AUTO) 0 % (0-10); EOSINOPHILS # (AUTO) 0.2 10^3/uL (0.0-0.3); EOSINOPHILS % (AUTO) 1 % (0-10); HEMATOCRIT 32 % (40-54); HEMOGLOBIN 10.2 g/dL (13.3-17.7); LYMPHOCYTES # (AUTO) 1.3 10^3/uL (1.0-4.0); LYMPHOCYTES % (AUTO) 10 % (12-44); MEAN CORPUSCULAR HEMOGLOBIN 28 pg (25-34); MEAN CORPUSCULAR HGB CONC 32 g/dL (32-36); MEAN CORPUSCULAR VOLUME 87 fL (80-99); MEAN PLATELET VOLUME 10.1 fL (9.0-12.2); MONOCYTES # (AUTO) 1.2 10^3/uL (0.0-1.0); MONOCYTES % (AUTO) 10 % (0-12); NEUTROPHILS # (AUTO) 9.7 10^3/uL (1.8-7.8); NEUTROPHILS % (AUTO) 78 % (42-75); PLATELET COUNT 339 10^3/uL (130-400); WHITE BLOOD COUNT 12.5 10^3/uL (4.3-11.0)
[2020-12-30 06:08] LABS: ALBUMIN 3.1 GM/DL (3.2-4.5)
[2020-12-30 06:09] LABS: POTASSIUM 4.4 MMOL/L (3.6-5.0)
[2020-12-30 06:10] LABS: CALCIUM 8.4 MG/DL (8.5-10.1)
[2020-12-30 06:13] LABS: BILIRUBIN,TOTAL 0.5 MG/DL (0.1-1.0)
[2020-12-30 06:14] LABS: PHOSPHORUS 3.7 MG/DL (2.3-4.7)
[2020-12-30 06:15] LABS: CREATININE SERUM 1.27 MG/DL (0.60-1.30)
[2020-12-30 06:18] LABS: MAGNESIUM 2.1 MG/DL (1.6-2.4)
[2020-12-30] MEDS: predniSONE 20 MG TAB PO SCH (07:27)
[2020-12-30] MEDS: BETHANECHOL 25 MG (URECHOLINE) TAB PO SCH ×4 (07:27→20:21)
--- NOTE | 2020-12-30 07:33 | PM&R Progress Note ---
Subjective HPI/CC On Admission Date Seen by Provider: Dec 30, 2020 Time Seen by Provider: 09:40 Subjective/Events-last exam 12/30/20: Has had 4 bowel movements WBC is down Frustrated about requiring 6 L/min O2 Maxipime and Eraxis maintianed CXR reviewed 12/29/20: Patient doing well Bladder scan initiated Urecholine and Flomax ordered as he takes at home 6 stools yesterday Slept well 12/28/20: Pt doing pretty well Maintained on antibiotics Having some retention so Dr. Simmons will see him Pt doing well otherwise Checked meds and labs Review of Systems General: Fatigue, Malaise Pulmonary: Dyspnea Objective Exam Vital Signs Vital Signs Date Time Temp Pulse Resp B/P (MAP) Pulse Ox O2 Delivery O2 Flow Rate FiO2 12/30/20 17:04 36.2 79 22 125/60 (81) 97 High Flow N/C 6.00 12/27/20 14:59 44 Capillary Refill : General Appearance: No Apparent Distress, WD/WN, Chronically ill HEENT: PERRL/EOMI, Normal ENT Inspection, Pharynx Normal Neck: Full Range of Motion, Normal Inspection, Non Tender, Supple, Carotid Bruit Respiratory: Chest Non Tender, Lungs Clear, No Accessory Muscle Use, No Respiratory Distress, Crackles, Decreased Breath Sounds Cardiovascular: Regular Rate, Rhythm, No Edema, No Gallop, No JVD, No Murmur, Normal Peripheral Pulses Gastrointestinal: Normal Bowel Sounds, No Organomegaly, No Pulsatile Mass, Non Tender, Soft Back: Normal Inspection, No CVA Tenderness, No Vertebral Tenderness Extremity: Normal Capillary Refill, Normal Inspection, Normal Range of Motion, Non Tender, No Calf Tenderness, No Pedal Edema Neurologic/Psychiatric: Alert, Oriented x3, No Motor/Sensory Deficits, 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, Abnormal Gait, Motor Weakness Skin: Normal Color, Warm/Dry Lymphatic: No Adenopathy Results/Procedures Lab Laboratory Tests 12/30/20 05:50 Patient resulted labs reviewed. FIM Transfers Therapy Code Descriptions/Definitions Functional [place] Measure: 0=Not Assessed/NA 4=Minimal Assistance 1=Total Assistance 5=Supervision or Setup 2=Maximal Assistance 6=Modified [place] 3=Moderate Assistance 7=Complete IndependenceSCALE: Activities may be completed with or without assistive devices. 1-Xuccyzdxua-eozbzwz completes the activity by him/herself with no assistance from a helper. 5-Set-up or Clean-up Assistance-helper sets up or cleans up; patient completes activity. [place] assists only prior to or following the activity. 4-Supervision or Touching Assistance-helper provides verbal cues and/or touching/steadying and/or contact guard assistance as patient completes activity. Assistance may be provided throughout the activity or intermittently. 3-Partial/Moderate Assistance-helper does LESS THAN HALF the effort. [place] lifts, holds or supports trunk or limbs, but provides less than half the effort. 2-Substantial/Maximal Assistance-helper does MORE THAN HALF the effort. [place] lifts or holds trunk or limbs and provides more than half the effort. 1-Esihvesfg-ndpsdg does ALL the effort. Patient does none of the effort to complete the activity. Or, the assistance of 2 or more helpers is required for the patient to complete the activity. If activity was not attempted, code reason: 7-Patient Refused. 9-Not Applicable-not attempted and the patient did not perform the activity before the current illness, exacerbation or injury. 10-Not Attempted due to Environmental Limitations-(lack of equipment, weather restraints, etc.). 88-Not Attempted due to Medical Conditions or Safety Concerns. Roll Left to Right (QC): 6 Sit to Lying (QC): 4 (SBA for safety. ) Sit to Stand (QC): 4 Chair/Rww-hp-Yhdqw Xfer(QC): 4 Car Transfer (QC): 4 Gait Training Does the Patient Walk?: Yes Distance: 120'x2 Walk 10 feet (QC): 4 Walk 50 ft with 2 Turns(QC): 4 Walk 150 ft (QC): 4 Walking 10ft/uneven surface-QC: 4 Gait Persons Needed: 1 Gait Assistive Device: FWW Wheelchair Training Does the Pt Use a Wheelchair?: No Wheel 50 ft with 2 turns (QC): 9 Wheel 150 ft (QC): 9 Stair Training Stair Training: Handrails/: 1 handrail #of Steps: 1 1 Step (curb) (QC): 4 4 Steps (QC): 3 (CGA with cues for sequencing. ) 12 Steps (QC): 88 Balance Picking up an Object (QC): 7 (Patient refuses due to back pain) ADL-Treatment Eating (QC): 6 (Opens packages/containers by self and uses regular utensils to eat.) Oral Hygiene (QC): 4 Bathing Location: L Arm, R Arm, L Upper Leg, R Upper Leg, L Lower Leg (including foot), R Lower Leg (including foot), Chest, Abdomen, Buttocks, Perineal Area Shower/Bathe Self (QC): 4 Upper Body Dressing (QC): 5 Lower Body Dressing (QC): 4 On/Off Footwear (QC): 4 Toileting Hygiene (QC): 4 Toilet Transfer (QC): 4 Assessment/Plan Assessment and Plan Assess & Plan/Chief Complaint Assessment: Critical illness myopathy Acute on chronic respiratory failure Chronic hypoxia requires O2 dependence at home GIB Acute blood loss anemia PNA CHF AF Edema Urinary retention and OAB consulted Dr Simmons 12/28/20 Plan: Monitor O2 Lasix DC catheter Monitor pain IRF protocol 12/28/20: Monitor O2 Abx to complete Dr Simmons consult Bladder meds 12/29/20: Bladder meds O2 IRF protocol 12/30/20: Improved status O2 wean Monitor closely (1) Acute and chronic respiratory failure with hypoxia Status: Acute (2) PNA (pneumonia) Status: Acute (3) Severe sepsis Status: Acute (4) Rectal bleeding Status: Acute (5) Wheezing Status: Acute (6) T2DM (type 2 diabetes mellitus) Status: Chronic (7) Atrial fibrillation with RVR Status: Acute (8) Dyspnea (9) CVA (cerebral vascular accident) Status: Acute (10) Severe anemia Status: Acute (11) GI bleed Status: Acute MARY LAMBERT DO Dec 30, 2020 07:33
[2020-12-30] MEDS: RT-ALBUTEROL INHALER HFA (VENTOLIN HFA) 18 GM IH SCH ×2 (07:38→19:10)
--- NOTE | 2020-12-30 08:01 | Diagnostic Imaging Report ---
INDICATION: Shortness of air. TECHNIQUE: Single view chest 7:27 AM. CORRELATION STUDY: 12/27/2020 FINDINGS: Bilateral pulmonary opacities are again demonstrated but overall perhaps slightly less consolidated. Mediastinal structures with cardiac enlargement and calcification of the aortic arch, stable. IMPRESSION: 1. Extensive bilateral pulmonary infiltrates persisting. Perhaps minimally improved from previous study. Dictated by: Dictated on workstation # [id number]
[2020-12-30] MEDS: guaiFENesin (MUCINEX) 600 MG TAB PO SCH ×2 (08:32→20:21)
[2020-12-30] MEDS: PANTOPRAZOLE 40 MG (PROTONIX) TAB PO SCH ×2 (08:32→20:21)
[2020-12-30] MEDS: DOCUSATE SODIUM 100 MG (COLACE) CAP PO SCH ×4 (08:32→20:26)
[2020-12-30] MEDS: ANIDULAFUNGIN INJECTION 100 MG in NS (IVPB) 100 ML IV SCH (08:32)
[2020-12-30] MEDS: FUROSEMIDE 40 MG/4 ML INJ (LASIX) IVP SCH (08:32)
[2020-12-30] MEDS: SENNA W/DOCUSATE (SENOKOT S) TABLET PO SCH ×2 (08:32→20:26)
[2020-12-30] MEDS: polyethylene glycoL POWDER 17 GM (MIRALAX) PACK PO SCH ×2 (09:21→20:26)
--- NOTE | 2020-12-30 11:25 | Physical Therapy Daily Note ---
PT Daily Note-Current Subjective Agreeable. no complaints. Mental Status Patient Orientation: Person, Place, Time, Situation Attachments: Oxygen (in situ during and post treatment at 6l/min), IV Transfers SCALE: Activities may be completed with or without assistive devices. 6-Emcizfnnoz-tpnenja completes the activity by him/herself with no assistance from a helper. 5-Set-up or Clean-up Assistance-helper sets up or cleans up; patient completes activity. [place] assists only prior to or following the activity. 4-Supervision or Touching Assistance-helper provides verbal cues and/or touching/steadying and/or contact guard assistance as patient completes activity. Assistance may be provided throughout the activity or intermittently. 3-Partial/Moderate Assistance-helper does LESS THAN HALF the effort. [place] lifts, holds or supports trunk or limbs, but provides less than half the effort. 2-Substantial/Maximal Assistance-helper does MORE THAN HALF the effort. [place] lifts or holds trunk or limbs and provides more than half the effort. 1-Nmxveavhs-qfknam does ALL the effort. Patient does none of the effort to complete the activity. Or, the assistance of 2 or more helpers is required for the patient to complete the activity. If activity was not attempted, code reason: 7-Patient Refused. 9-Not Applicable-not attempted and the patient did not perform the activity before the current illness, exacerbation or injury. 10-Not Attempted due to Environmental Limitations-(lack of equipment, weather restraints, etc.). 88-Not Attempted due to Medical Conditions or Safety Concerns. Sit to Stand (QC): 4 Toilet Transfer (QC): 4 Gait Training Gait Assistive Device: FWW Pt toileted with SBA and stood at sink to wash his hands with SBA. Gt x 125 ft x 3 reps with FWW with SBA. Treatments SAfe gait with no noted LOB. Rest breaks required. Assessment Current Status: Good Progress Strength and balance progressing; functional mobility improving. PT Short Term Goals Short Term Goals Time Frame: Jan 03, 2021 Roll Left & Right: 6 Sit to lyin Lying to sitting on side of be: 6 Sit to stand: 4 (met) Chair/jbp-xn-szlkb transfer: 4 (met) Walk 10 feet: 4 Walk 50 feet with two turns: 4 Walk 150 feet: 4 (met) PT Assistant Controller Goals Mcc Goals PT Assistant Controller Goals Time Frame: Jan 17, 2021 Roll Left & Right (QC): 6 Sit to Lying (QC): 6 Lying-Sitting on Side/Bed(QC): 6 Sit to Stand (QC): 6 Chair/Aqi-lw-Prrba Xfer(QC): 6 Toilet Transfer (QC): 6 Car Transfer (QC): 6 Does the Patient Walk: Yes Walk 10 feet (QC): 6 Walk 50ft with 2 Turns (QC): 6 Walk 150 ft (QC): 6 Walking 10ft on Uneven Surface: 6 1 Step (curb) (QC): 4 4 Steps (QC): 4 12 Steps (QC): 88 Picking up an Object (QC): 88 Wheel 50 feet with 2 turns (QC: 9 Wheel 150 feet: 9 PT Plan Problem List Problem List: Activity Tolerance, Functional Strength, Safety, Balance, Gait, Transfer, Bed Mobility Treatment/Plan Treatment Plan: Continue Plan of Care Treatment Plan: Education, Functional Activity Jennifer, Functional Strength, Group Therapy, Gait, Safety, Therapeutic Exercise, Transfers Treatment Duration: Jan 17, 2021 Frequency: At least 5 of 7 days/Wk (IRF) Estimated Hrs Per Day: 1.5 hours per day Patient and/or Family Agrees t: Yes Time/GCodes Time In: 930 Time Out: 945 Total Billed Treatment Time: 15 Total Billed Treatment visit GT 15 PRINCE CHARLTON PT Dec 30, 2020 11:25
[2020-12-30 17:04] VITALS: BP 125/60
[2020-12-30] MEDS: TAMSULOSIN 0.4 MG (FLOMAX) CAP PO SCH (18:02)
[2020-12-30 19:50] VITALS: BP 125/60
[2020-12-30] MEDS ORDERED: RT-ALBUTEROL SULF 2.5 MG/3 ML PRE-MIX VIAL INH PRN (20:15)
[2020-12-30] MEDS: ACETAMINOPHEN 325 MG TABLET PO PRN (20:21)
[2020-12-30] MEDS: MELATONIN 3 MG TABLET PO SCH (20:21)
[2020-12-31] MEDS: CEFEPIME INJECTION 1,000 MG in WATER (STERILE) FOR INJECTION 10 ML IV SCH ×3 (02:54→18:15)
[2020-12-31] MEDS: CATHETER FLUSH 10 ML SYR IV SCH ×6 (02:54→20:58)
[2020-12-31 05:55] VITALS: BP 132/61
[2020-12-31] MEDS: BETHANECHOL 25 MG (URECHOLINE) TAB PO SCH ×4 (06:34→20:50)
[2020-12-31] MEDS: predniSONE 20 MG TAB PO SCH (06:35)
[2020-12-31] MEDS: RT-ALBUTEROL SULF 2.5 MG/3 ML PRE-MIX VIAL INH SCH ×4 (07:06→18:02)
[2020-12-31] MEDS: FUROSEMIDE 40 MG/4 ML INJ (LASIX) IVP SCH (08:40)
[2020-12-31] MEDS: ANIDULAFUNGIN INJECTION 100 MG in NS (IVPB) 100 ML IV SCH (08:40)
[2020-12-31] MEDS: guaiFENesin (MUCINEX) 600 MG TAB PO SCH ×2 (08:41→20:51)
[2020-12-31] MEDS: PANTOPRAZOLE 40 MG (PROTONIX) TAB PO SCH ×2 (08:41→20:49)
--- NOTE | 2020-12-31 09:32 | PM&R Progress Note ---
Subjective HPI/CC On Admission Date Seen by Provider: Dec 31, 2020 Time Seen by Provider: 11:00 Subjective/Events-last exam 12/31/20: Patient doing well BM++ APAP HS scheduled will be ordered Carotid USG will be obtained 12/30/20: Has had 4 bowel movements WBC is down Frustrated about requiring 6 L/min O2 Maxipime and Eraxis maintianed CXR reviewed 12/29/20: Patient doing well Bladder scan initiated Urecholine and Flomax ordered as he takes at home 6 stools yesterday Slept well 12/28/20: Pt doing pretty well Maintained on antibiotics Having some retention so Dr. iSmmons will see him Pt doing well otherwise Checked meds and labs Review of Systems General: Fatigue Pulmonary: Dyspnea Neurological: Weakness Objective Exam Vital Signs Vital Signs Date Time Temp Pulse Resp B/P (MAP) Pulse Ox O2 Delivery O2 Flow Rate FiO2 12/31/20 18:02 97 Nasal Cannula 6.00 12/31/20 17:15 36.8 75 20 147/66 (93) 12/27/20 14:59 44 Capillary Refill : General Appearance: No Apparent Distress, WD/WN, Chronically ill HEENT: PERRL/EOMI, Normal ENT Inspection, Pharynx Normal Neck: Full Range of Motion, Normal Inspection, Non Tender, Supple, Carotid Bruit Respiratory: Chest Non Tender, Lungs Clear, No Accessory Muscle Use, No Respiratory Distress, Crackles, Decreased Breath Sounds Cardiovascular: Regular Rate, Rhythm, No Edema, No Gallop, No JVD, No Murmur, Normal Peripheral Pulses Gastrointestinal: Normal Bowel Sounds, No Organomegaly, No Pulsatile Mass, Non Tender, Soft Back: Normal Inspection, No CVA Tenderness, No Vertebral Tenderness Extremity: Normal Capillary Refill, Normal Inspection, Normal Range of Motion, Non Tender, No Calf Tenderness, No Pedal Edema Neurologic/Psychiatric: Alert, Oriented x3, No Motor/Sensory Deficits, 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, Abnormal Gait, Motor Weakness Skin: Normal Color, Warm/Dry Lymphatic: No Adenopathy Results/Procedures Lab Patient resulted labs reviewed. FIM Transfers Therapy Code Descriptions/Definitions Functional [place] Measure: 0=Not Assessed/NA 4=Minimal Assistance 1=Total Assistance 5=Supervision or Setup 2=Maximal Assistance 6=Modified [place] 3=Moderate Assistance 7=Complete IndependenceSCALE: Activities may be completed with or without assistive devices. 5-Yqjcqbsdyv-mxrbvex completes the activity by him/herself with no assistance from a helper. 5-Set-up or Clean-up Assistance-helper sets up or cleans up; patient completes activity. [place] assists only prior to or following the activity. 4-Supervision or Touching Assistance-helper provides verbal cues and/or touching/steadying and/or contact guard assistance as patient completes activity. Assistance may be provided throughout the activity or intermittently. 3-Partial/Moderate Assistance-helper does LESS THAN HALF the effort. [place] lifts, holds or supports trunk or limbs, but provides less than half the effort. 2-Substantial/Maximal Assistance-helper does MORE THAN HALF the effort. [place] lifts or holds trunk or limbs and provides more than half the effort. 3-Rvniqbnxz-pbyvhj does ALL the effort. Patient does none of the effort to complete the activity. Or, the assistance of 2 or more helpers is required for the patient to complete the activity. If activity was not attempted, code reason: 7-Patient Refused. 9-Not Applicable-not attempted and the patient did not perform the activity before the current illness, exacerbation or injury. 10-Not Attempted due to Environmental Limitations-(lack of equipment, weather restraints, etc.). 88-Not Attempted due to Medical Conditions or Safety Concerns. Roll Left to Right (QC): 6 Sit to Lying (QC): 4 (SBA for safety. ) Sit to Stand (QC): 4 Chair/Pwb-ka-Nfbjo Xfer(QC): 4 Car Transfer (QC): 4 Gait Training Does the Patient Walk?: Yes Distance: 120'x2 Walk 10 feet (QC): 4 Walk 50 ft with 2 Turns(QC): 4 Walk 150 ft (QC): 4 Walking 10ft/uneven surface-QC: 4 Gait Persons Needed: 1 Gait Assistive Device: FWW Wheelchair Training Does the Pt Use a Wheelchair?: No Wheel 50 ft with 2 turns (QC): 9 Wheel 150 ft (QC): 9 Stair Training Stair Training: Handrails/: 1 handrail #of Steps: 1 1 Step (curb) (QC): 4 4 Steps (QC): 3 (CGA with cues for sequencing. ) 12 Steps (QC): 88 Balance Picking up an Object (QC): 7 (Patient refuses due to back pain) ADL-Treatment Eating (QC): 6 (Opens packages/containers by self and uses regular utensils to eat.) Oral Hygiene (QC): 4 Bathing Location: L Arm, R Arm, L Upper Leg, R Upper Leg, L Lower Leg (including foot), R Lower Leg (including foot), Chest, Abdomen, Buttocks, Perineal Area Shower/Bathe Self (QC): 4 Upper Body Dressing (QC): 5 Lower Body Dressing (QC): 4 On/Off Footwear (QC): 4 Toileting Hygiene (QC): 4 Toilet Transfer (QC): 4 Assessment/Plan Assessment and Plan Assess & Plan/Chief Complaint Assessment: Critical illness myopathy Acute on chronic respiratory failure Chronic hypoxia requires O2 dependence at home GIB Acute blood loss anemia PNA CHF AF Edema Urinary retention and OAB consulted Dr Simmons 12/28/20 Plan: Monitor O2 Lasix DC catheter Monitor pain IRF protocol 12/28/20: Monitor O2 Abx to complete Dr Simmons consult Bladder meds 12/29/20: Bladder meds O2 IRF protocol 12/30/20: Improved status O2 wean Monitor closely 12/31/20: Monitor BP Monitor O2 Carotid USG tomorrow (1) Acute and chronic respiratory failure with hypoxia Status: Acute (2) PNA (pneumonia) Status: Acute (3) Severe sepsis Status: Acute (4) Rectal bleeding Status: Acute (5) Wheezing Status: Acute (6) T2DM (type 2 diabetes mellitus) Status: Chronic (7) Atrial fibrillation with RVR Status: Acute (8) Dyspnea (9) CVA (cerebral vascular accident) Status: Acute (10) Severe anemia Status: Acute (11) GI bleed Status: Acute MARY LAMBERT DO Dec 31, 2020 09:32
[2020-12-31] MEDS: polyethylene glycoL POWDER 17 GM (MIRALAX) PACK PO SCH ×2 (09:59→20:50)
[2020-12-31] MEDS: DOCUSATE SODIUM 100 MG (COLACE) CAP PO SCH ×4 (09:59→20:50)
[2020-12-31] MEDS: SENNA W/DOCUSATE (SENOKOT S) TABLET PO SCH ×2 (09:59→20:51)
[2020-12-31 17:15] VITALS: BP 147/66
[2020-12-31] MEDS: TAMSULOSIN 0.4 MG (FLOMAX) CAP PO SCH (18:15)
[2020-12-31] MEDS: MELATONIN 3 MG TABLET PO SCH (20:50)
[2020-12-31] MEDS: ACETAMINOPHEN 325 MG TABLET PO SCH ×2 (20:51→21:30)
[2021-01-01] MEDS: CEFEPIME INJECTION 1,000 MG in WATER (STERILE) FOR INJECTION 10 ML IV SCH (03:15)
[2021-01-01] MEDS: CATHETER FLUSH 10 ML SYR IV SCH ×6 (03:15→20:46)
[2021-01-01 05:42] VITALS: BP 170/72
--- NOTE | 2021-01-01 05:48 | PM&R Progress Note ---
Subjective HPI/CC On Admission Date Seen by Provider: Jan 01, 2021 Time Seen by Provider: 08:30 Subjective/Events-last exam 01/01/21: Overall pt doing very well Aleven on his buttock will be changed Last antibiotic will be today Bowels moving Creatinine 1.36 12/31/20: Patient doing well BM++ APAP HS scheduled will be ordered Carotid USG will be obtained 12/30/20: Has had 4 bowel movements WBC is down Frustrated about requiring 6 L/min O2 Maxipime and Eraxis maintianed CXR reviewed 12/29/20: Patient doing well Bladder scan initiated Urecholine and Flomax ordered as he takes at home 6 stools yesterday Slept well 12/28/20: Pt doing pretty well Maintained on antibiotics Having some retention so Dr. Simmons will see him Pt doing well otherwise Checked meds and labs Review of Systems General: Fatigue, Malaise Pulmonary: Dyspnea Objective Exam Vital Signs Vital Signs Date Time Temp Pulse Resp B/P (MAP) Pulse Ox O2 Delivery O2 Flow Rate FiO2 01/02/21 02:01 97 Nasal Cannula 4.00 01/01/21 17:02 36.4 78 20 153/63 (93) 12/27/20 14:59 44 Capillary Refill : General Appearance: No Apparent Distress, WD/WN, Chronically ill HEENT: PERRL/EOMI, Normal ENT Inspection, Pharynx Normal Neck: Full Range of Motion, Normal Inspection, Non Tender, Supple, Carotid Bruit Respiratory: Chest Non Tender, Lungs Clear, No Accessory Muscle Use, No Respiratory Distress, Crackles, Decreased Breath Sounds Cardiovascular: Regular Rate, Rhythm, No Edema, No Gallop, No JVD, No Murmur, Normal Peripheral Pulses Gastrointestinal: Normal Bowel Sounds, No Organomegaly, No Pulsatile Mass, Non Tender, Soft Back: Normal Inspection, No CVA Tenderness, No Vertebral Tenderness Extremity: Normal Capillary Refill, Normal Inspection, Normal Range of Motion, Non Tender, No Calf Tenderness, No Pedal Edema Neurologic/Psychiatric: Alert, Oriented x3, No Motor/Sensory Deficits, 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, Abnormal Gait, Motor Weakness Skin: Normal Color, Warm/Dry Lymphatic: No Adenopathy Results/Procedures Lab Laboratory Tests 01/01/21 05:31 Patient resulted labs reviewed. FIM Transfers Therapy Code Descriptions/Definitions Functional [place] Measure: 0=Not Assessed/NA 4=Minimal Assistance 1=Total Assistance 5=Supervision or Setup 2=Maximal Assistance 6=Modified [place] 3=Moderate Assistance 7=Complete IndependenceSCALE: Activities may be completed with or without assistive devices. 3-Okwffoyvhj-okrykti completes the activity by him/herself with no assistance from a helper. 5-Set-up or Clean-up Assistance-helper sets up or cleans up; patient completes activity. [place] assists only prior to or following the activity. 4-Supervision or Touching Assistance-helper provides verbal cues and/or touching/steadying and/or contact guard assistance as patient completes activity. Assistance may be provided throughout the activity or intermittently. 3-Partial/Moderate Assistance-helper does LESS THAN HALF the effort. [place] lifts, holds or supports trunk or limbs, but provides less than half the effort. 2-Substantial/Maximal Assistance-helper does MORE THAN HALF the effort. [place] l ifts or holds trunk or limbs and provides more than half the effort. 8-Nhdkvhpak-tgbevc does ALL the effort. Patient does none of the effort to complete the activity. Or, the assistance of 2 or more helpers is required for the patient to complete the activity. If activity was not attempted, code reason: 7-Patient Refused. 9-Not Applicable-not attempted and the patient did not perform the activity before the current illness, exacerbation or injury. 10-Not Attempted due to Environmental Limitations-(lack of equipment, weather restraints, etc.). 88-Not Attempted due to Medical Conditions or Safety Concerns. Roll Left to Right (QC): 6 Sit to Lying (QC): 4 (SBA for safety. ) Sit to Stand (QC): 4 Chair/Wsf-yx-Ldxpv Xfer(QC): 4 Car Transfer (QC): 4 Gait Training Does the Patient Walk?: Yes Distance: 120'x2 Walk 10 feet (QC): 4 Walk 50 ft with 2 Turns(QC): 4 Walk 150 ft (QC): 4 Walking 10ft/uneven surface-QC: 4 Gait Persons Needed: 1 Gait Assistive Device: FWW Wheelchair Training Does the Pt Use a Wheelchair?: No Wheel 50 ft with 2 turns (QC): 9 Wheel 150 ft (QC): 9 Stair Training Stair Training: Handrails/: 1 handrail #of Steps: 1 1 Step (curb) (QC): 4 4 Steps (QC): 3 (CGA with cues for sequencing. ) 12 Steps (QC): 88 Balance Picking up an Object (QC): 7 (Patient refuses due to back pain) ADL-Treatment Eating (QC): 6 (Opens packages/containers by self and uses regular utensils to eat.) Oral Hygiene (QC): 4 Bathing Location: L Arm, R Arm, L Upper Leg, R Upper Leg, L Lower Leg (including foot), R Lower Leg (including foot), Chest, Abdomen, Buttocks, Perineal Area Shower/Bathe Self (QC): 4 Upper Body Dressing (QC): 5 Lower Body Dressing (QC): 4 On/Off Footwear (QC): 4 Toileting Hygiene (QC): 4 Toilet Transfer (QC): 4 Assessment/Plan Assessment and Plan Assess & Plan/Chief Complaint Assessment: Critical illness myopathy Acute on chronic respiratory failure Chronic hypoxia requires O2 dependence at home GIB Acute blood loss anemia PNA CHF AF Edema Urinary retention and OAB consulted Dr Simmons 12/28/20 Plan: Monitor O2 Lasix DC catheter Monitor pain IRF protocol 12/28/20: Monitor O2 Abx to complete Dr Simmons consult Bladder meds 12/29/20: Bladder meds O2 IRF protocol 12/30/20: Improved status O2 wean Monitor closely 12/31/20: Monitor BP Monitor O2 Carotid USG tomorrow 01/01/21: Monitor BP O2 Completed abx (1) Acute and chronic respiratory failure with hypoxia Status: Acute (2) PNA (pneumonia) Status: Acute (3) Severe sepsis Status: Acute (4) Rectal bleeding Status: Acute (5) Wheezing Status: Acute (6) T2DM (type 2 diabetes mellitus) Status: Chronic (7) Atrial fibrillation with RVR Status: Acute (8) Dyspnea (9) CVA (cerebral vascular accident) Status: Acute (10) Severe anemia Status: Acute (11) GI bleed Status: Acute MARY LAMBERT DO Jan 01, 2021 05:48
[2021-01-01 05:50] LABS: BASOPHILS % (AUTO) 0 % (0-10); EOSINOPHILS # (AUTO) 0.2 10^3/uL (0.0-0.3); EOSINOPHILS % (AUTO) 2 % (0-10); HEMATOCRIT 29 % (40-54); HEMOGLOBIN 9.3 g/dL (13.3-17.7); LYMPHOCYTES # (AUTO) 1.3 10^3/uL (1.0-4.0); LYMPHOCYTES % (AUTO) 10 % (12-44); MEAN CORPUSCULAR HEMOGLOBIN 27 pg (25-34); MEAN CORPUSCULAR HGB CONC 32 g/dL (32-36); MEAN CORPUSCULAR VOLUME 86 fL (80-99); MEAN PLATELET VOLUME 9.9 fL (9.0-12.2); MONOCYTES # (AUTO) 1.2 10^3/uL (0.0-1.0); MONOCYTES % (AUTO) 9 % (0-12); NEUTROPHILS # (AUTO) 10.6 10^3/uL (1.8-7.8); NEUTROPHILS % (AUTO) 79 % (42-75); PLATELET COUNT 290 10^3/uL (130-400); WHITE BLOOD COUNT 13.5 10^3/uL (4.3-11.0)
[2021-01-01 05:59] LABS: ALBUMIN 2.9 GM/DL (3.2-4.5); POTASSIUM 4.1 MMOL/L (3.6-5.0)
[2021-01-01 06:00] LABS: CALCIUM 8.3 MG/DL (8.5-10.1)
[2021-01-01 06:01] LABS: TOTAL PROTEIN 5.6 GM/DL (6.4-8.2)
[2021-01-01 06:03] LABS: BILIRUBIN,TOTAL 0.5 MG/DL (0.1-1.0)
[2021-01-01 06:05] LABS: CREATININE SERUM 1.36 MG/DL (0.60-1.30)
--- NOTE | 2021-01-01 06:07 | Pulmonary Progress Note ---
Standard Progress Note Progress Notes Date Seen by Provider: Jan 01, 2021 Time Seen by Provider: 06:06 No complications noted. Assessment & Plan Pneumonia with sepsis - no fever -COVID negative - Cefepime and eraxis - Will repeat CXR -MRSA swab is negative -Currently on 6 liter NC -Titrate oxygen down -Currently on Prednisone 40mg daily -D/C after 5 days Acute on chronic respiratory failure -Oxygen and continue to monitor Acute renal failure -Hold Lasix -Monitor Severe oxygen dependent COPD - He uses 6 liters of oxygen at home Duonebs metabolic lactic acidosis - improved Afib - hx Eliquis T2DM SSI HTN HLD BPH Continue home meds BRITTANY BARRIOS DO Jan 01, 2021 06:07
[2021-01-01] MEDS: predniSONE 20 MG TAB PO SCH (06:38)
[2021-01-01] MEDS: BETHANECHOL 25 MG (URECHOLINE) TAB PO SCH ×4 (06:38→20:39)
[2021-01-01] MEDS: RT-ALBUTEROL SULF 2.5 MG/3 ML PRE-MIX VIAL INH SCH ×5 (07:27→22:07)
--- NOTE | 2021-01-01 07:48 | Diagnostic Imaging Report ---
EXAMINATION: Chest 1 view HISTORY: Shortness of breath COMPARISON: Chest radiograph 12/30/2020 FINDINGS: Heart size and pulmonary vasculature are normal. Stable background findings of COPD. There are persistent interstitial opacities throughout both lungs which do not appear significantly changed from 12/30/2020. No pleural effusion or pneumothorax. Calcifications of the aorta. Degenerative changes of the thoracic spine. Osseous structures are otherwise intact. IMPRESSION: 1. Persistent interstitial opacities throughout both lungs suggestive of edema or atypical infection. Stable background findings of COPD. Dictated by: Dictated on workstation # [id number]
--- NOTE | 2021-01-01 08:17 | Occupational Ther Daily Note ---
OT Current Status-Daily Note Subjective Pt alert, sitting in recliner. Pt agrees to therapy. No c/o pain at this time. Mental Status/Objective Patient Orientation: Person, Place, Time, Situation Attachments: IV, Oxygen (5L) ADL-Treatment Pt declines shower, agrees to sponge bath. Set up for sponge bath then SBA while standing to cleanse kennedy area/buttocks. Pt retrieved own clothes using FWW with SBA for safety. Pt dressed upper body independently. Using lower body AE for dressing, donned/doffed socks independently, threaded pants/underwear over feet independently and hiked pants over hips independently. Ambulated into bathroom with SBA for safety due to SOA. Transferred using FWW to toilet independently. Completed clothing manipulation and hygiene independently. Pt stood at sink to wash hands independently. Declined at this time to complete oral care. Therapy Code Descriptions/Definitions Functional [place] Measure: 0=Not Assessed/NA 4=Minimal Assistance 1=Total Assistance 5=Supervision or Setup 2=Maximal Assistance 6=Modified [place] 3=Moderate Assistance 7=Complete IndependenceSCALE: Activities may be completed with or without assistive devices. 4-Mriihlpjoe-cjlbulh completes the activity by him/herself with no assistance from a helper. 5-Set-up or Clean-up Assistance-helper sets up or cleans up; patient completes activity. [place] assists only prior to or following the activity. 4-Supervision or Touching Assistance-helper provides verbal cues and/or touching/steadying and/or contact guard assistance as patient completes activi ty. Assistance may be provided throughout the activity or intermittently. 3-Partial/Moderate Assistance-helper does LESS THAN HALF the effort. [place] lifts, holds or supports trunk or limbs, but provides less than half the effort. 2-Substantial/Maximal Assistance-helper does MORE THAN HALF the effort. [place] lifts or holds trunk or limbs and provides more than half the effort. 8-Drorusipw-eofmei does ALL the effort. Patient does none of the effort to complete the activity. Or, the assistance of 2 or more helpers is required for the patient to complete the activity. If activity was not attempted, code reason: 7-Patient Refused. 9-Not Applicable-not attempted and the patient did not perform the activity before the current illness, exacerbation or injury. 10-Not Attempted due to Environmental Limitations-(lack of equipment, weather restraints, etc.). 88-Not Attempted due to Medical Conditions or Safety Concerns. Eating (QC): 6 Oral Hygiene (QC): 7 Shower/Bathe Self (QC): 5 Upper Body Dressing (QC): 5 Lower Body Dressing (QC): 4 On/Off Footwear: 5 Toileting Hygiene (QC): 6 Toilet Transfer (QC): 6 Pt requires multiple recovery breaks to increase O2 levels, 70-80's initially then campos to 91 after break. Other Treatment Due to low endurance and oxygen levels, pt used w/c to propel self to therapy gym. 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 Arm bike for 8 min with 1 recovery break. Resistive clothespins 1x with each hand. After session, pt lying in bed with call light/phone in reach. All needs met in room. OT Short Term Goals Short Term Goals Time Frame: Jan 03, 2021 Eatin Oral hygiene: 5 Toileting hygiene: 4 Shower/bathe self: 4 Upper body dressin Lower body dressin (with AE) Putting on/taking off footwear: 4 (with AE) OT Fast Food Delivery Driver Goals Fpc Goals Time Frame: Jan 10, 2021 Eating (QC): 6 Oral Hygiene (QC): 6 Toileting Hygiene (QC): 6 Shower/Bathe Self (QC): 5 Upper Body Dressing (QC): 6 Lower Body Dressing (QC): 6 On/Off Footwear (QC): 6 (with AE) Additional Goals: 1-Demonstrate ADL Tasks, 2-Verbalize Understanding, 3- ImproveStrength/Jennifer 1=Demonstrate adherence to instructed precautions during ADL tasks. 2=Patient will verbalize/demonstrate understanding of assistive devices/modifications for ADL. 3=Patient will improve strength/tolerance for activity to enable patient to perform ADL's. OT Education/Plan Problem List/Assessment Assessment: Decreased Activ Tolerance, Decreased UE Strength, Impaired Self- Care Skills Discharge Recommendations Plan/Recommendations: Continue POC Treatment Plan/Plan of Care Patient would benefit from OT for education, treatment and training to promote independence in ADL's, mobility, safety and/or upper extremity function for ADL's. Plan of Care: ADL Retraining, Functional Mobility, UE Funct Exercise/Act Treatment Duration: Jan 10, 2021 Frequency: At least 5 of 7 days/Wk (IRF) Estimated Hrs Per Day: 1.5 hours per day Agreement: Yes Rehab Potential: Good Time/GCodes Start Time: 07:30 Stop Time: 09:00 Total Time Billed (hr/min): 90 Billed Treatment Time 1 visit-ADL 4 (60 min) EX 2 (30 min) PRINCE SUAZO Jan 01, 2021 08:17
[2021-01-01] MEDS: PANTOPRAZOLE 40 MG (PROTONIX) TAB PO SCH ×2 (08:53→20:39)
[2021-01-01] MEDS: guaiFENesin (MUCINEX) 600 MG TAB PO SCH ×2 (08:53→20:38)
[2021-01-01] MEDS: SENNA W/DOCUSATE (SENOKOT S) TABLET PO SCH ×2 (08:53→20:38)
[2021-01-01] MEDS: DOCUSATE SODIUM 100 MG (COLACE) CAP PO SCH ×4 (08:55→20:40)
[2021-01-01] MEDS: polyethylene glycoL POWDER 17 GM (MIRALAX) PACK PO SCH ×2 (08:56→20:40)
[2021-01-01] MEDS: ANIDULAFUNGIN INJECTION 100 MG in NS (IVPB) 100 ML IV SCH (09:26)
--- NOTE | 2021-01-01 10:01 | Physical Therapy Daily Note ---
PT Daily Note-Current Subjective Pt. in bed states he is so tired from OT Rx. Agrees to Rx with rest breaks and inside room as he does not tolerate his mask well Pain Location: No Pain Reported Mental Status Patient Orientation: Normal For Age Attachments: Oxygen (6L) Transfers SCALE: Activities may be completed with or without assistive devices. 5-Acumunxjqp-duxblzb completes the activity by him/herself with no assistance from a helper. 5-Set-up or Clean-up Assistance-helper sets up or cleans up; patient completes activity. [place] assists only prior to or following the activity. 4-Supervision or Touching Assistance-helper provides verbal cues and/or touching/steadying and/or contact guard assistance as patient completes activity. Assistance may be provided throughout the activity or intermittently. 3-Partial/Moderate Assistance-helper does LESS THAN HALF the effort. [place] lifts, holds or supports trunk or limbs, but provides less than half the effort. 2-Substantial/Maximal Assistance-helper does MORE THAN HALF the effort. [place] lifts or holds trunk or limbs and provides more than half the effort. 2-Umtkjhagd-rqovpv does ALL the effort. Patient does none of the effort to complete the activity. Or, the assistance of 2 or more helpers is required for the patient to complete the activity. If activity was not attempted, code reason: 7-Patient Refused. 9-Not Applicable-not attempted and the patient did not perform the activity before the current illness, exacerbation or injury. 10-Not Attempted due to Environmental Limitations-(lack of equipment, weather restraints, etc.). 88-Not Attempted due to Medical Conditions or Safety Concerns. Roll Left & Right (QC): 6 Sit to Lying (QC): 6 Lying to Sitting/Side of Bed(Q: 6 Sit to Stand (QC): 6 Chair/Ugt-ot-Nldcm Xfer(QC): 5 Gait Training Does the Patient Walk?: Yes Walk 10 feet (QC): 4 Walk 50 ft with 2 Turns(QC): 4 Gait Persons Needed: 1 Gait Assistive Device: FWW many short bouts of gait secondary to level of fatigue. Pt. shares his home situation and that he seldom goes out secondary to high level of O2 needs. Pt. ambulated 40-5-ft x 4 trials with assist for O2 tubing and min cues for turns and safety with tube. O2 sats all >90% with activity Exercises Supine Ex: Bridging, Ankle pumps, Quad Set, Rolling, Glut sets, Heel Slides, Short Arc Quads, Scooting, Straight leg raise, Hip abd/add Supine Reps: 10 (x2) Seated Therapy Exercises: Ankle pumps, Sit to stand, Long arc quads, Hip flexion, Hip abd/add Seated Reps: 15 Assessment Current Status: Good Progress slow moving with many rest breaks, no c/o SOB, O2 >90% through Rx PT Short Term Goals Short Term Goals Time Frame: Jan 03, 2021 Roll Left & Right: 6 Sit to lyin Lying to sitting on side of be: 6 Sit to stand: 4 (met) Chair/fqt-ea-dnckx transfer: 4 (met) Walk 10 feet: 4 Walk 50 feet with two turns: 4 Walk 150 feet: 4 (met) PT Air Bag Stripper Goals Air Bag Stripper Goals PT Halfway Goals Time Frame: Jan 17, 2021 Roll Left & Right (QC): 6 Sit to Lying (QC): 6 Lying-Sitting on Side/Bed(QC): 6 Sit to Stand (QC): 6 Chair/Run-hn-Ygkri Xfer(QC): 6 Toilet Transfer (QC): 6 Car Transfer (QC): 6 Does the Patient Walk: Yes Walk 10 feet (QC): 6 Walk 50ft with 2 Turns (QC): 6 Walk 150 ft (QC): 6 Walking 10ft on Uneven Surface: 6 1 Step (curb) (QC): 4 4 Steps (QC): 4 12 Steps (QC): 88 Picking up an Object (QC): 88 Wheel 50 feet with 2 turns (QC: 9 Wheel 150 feet: 9 PT Plan Treatment/Plan Treatment Plan: Continue Plan of Care Treatment Plan: Education, Functional Activity Jennifer, Functional Strength, Group Therapy, Gait, Safety, Therapeutic Exercise, Transfers Treatment Duration: Jan 17, 2021 Frequency: At least 5 of 7 days/Wk (IRF) Estimated Hrs Per Day: 1.5 hours per day Patient and/or Family Agrees t: Yes Safety Risks/Education Patient Education: Gait Training, Transfer Techniques, Correct Positioning, Disease Process, Safety Issues Teaching Recipient: Patient Teaching Methods: Demonstration, Discussion Response to Teaching: Verbalize Understanding, Return Demonstration, Reinforce ment Needed Time/GCodes Time In: 900 Time Out: 1000 Total Billed Treatment Time: 60 Total Billed Treatment 1,GT15m,EX20m,FA25m BRIDGER LUCAS DRUM DRIER OPERATOR Jan 01, 2021 10:01
[2021-01-01 10:57] VITALS: BP 170/72
--- NOTE | 2021-01-01 13:03 | Diagnostic Imaging Report ---
PROCEDURE: US carotid duplex, bilateral. TECHNIQUE: Multiple real-time grayscale images were obtained over the carotid arteries in various projections, bilaterally. Additional spectral analysis and color Doppler duplex images were also obtained. INDICATION: Carotid stenosis. COMPARISON: 03/23/2016. FINDINGS: Right carotid circulation: There is mild plaque formation in the right carotid bifurcation. Based on grayscale images and flow velocity criteria, there is mild stenoses (<50%) of the right internal carotid artery. Left carotid circulation: There is moderate plaque formation in the left carotid bifurcation. Based on grayscale images and flow velocity criteria, there is moderate stenoses (50-69%) of the left internal carotid artery. Flow in the bilateral vertebral arteries is antegrade. IMPRESSION: 1. Mild (<50%) stenosis of the right internal carotid artery. 2. Moderate (50-69%) stenosis of the left internal carotid artery. Society of Radiologist in Ultrasound Consensus: Normal: ICA PSV is <125 cm/sec and no plaque or intimal thickening is visible sonographically ICA/CCA PSV ratio <2.0 ICA EDV <40 cm/sec Mild (<50% ICA stenosis): ICA PSV is <125 cm/sec and plaque or intimal thickening is visible sonographically ICA/CCA PSV ratio <2.0 ICA EDV <40 cm/sec Moderate (50-69% ICA stenosis) ICA PSV is 125-230 cm/sec and plaque is visible sonographically ICA/CCA PSV ratio of 2.0-4.0 ICA EDV of 40-100 cm/sec Severe (?70% ICA stenosis but less than near occlusion): ICA PSV is >230 cm/sec and visible plaque and luminal narrowing are seen at pearson-scale and color Doppler ultrasound (the higher the Doppler parameters lie above the threshold of 230 cm/sec, the greater the likelihood of severe disease) ICA/CCA PSV ratio >4 ICA EDV >100 cm/sec Near occlusion of the ICA Velocity parameters may not apply, since velocities may be high, low, or undetectable Markedly narrowed lumen at color or power Doppler ultrasound Total occlusion of the ICA: No detectable patent lumen at pearson-scale ultrasound and no flow with spectral, power, and color Doppler ultrasound May be compensatory increased velocity in the contralateral carotid Parameters based on the consensus panel Pearson-Scale and Doppler ultrasound criteria published August 2003, Radiology, Volume 229. DOPPLER (peak systolic velocity cm/S Right Left CCA 103 103 ICA Proximal 79 80 ICA Mid 52 229 ICA Distal 111 97 RATIO 0.9 2.6 ECA 192 157 VERT 75 75 Dictated by: Dictated on workstation # [id number]
--- NOTE | 2021-01-01 14:02 | Physical Therapy Daily Note ---
PT Daily Note-Current Subjective Pt. agrees to Rx. present and inquires about progress Pain Location: No Pain Reported Mental Status Patient Orientation: Normal For Age Attachments: Oxygen (6L titrated to 3L) Transfers SCALE: Activities may be completed with or without assistive devices. 9-Irextazdqb-utbodqj completes the activity by him/herself with no assistance from a helper. 5-Set-up or Clean-up Assistance-helper sets up or cleans up; patient completes activity. [place] assists only prior to or following the activity. 4-Supervision or Touching Assistance-helper provides verbal cues and/or touching/steadying and/or contact guard assistance as patient completes activity. Assistance may be provided throughout the activity or intermittently. 3-Partial/Moderate Assistance-helper does LESS THAN HALF the effort. [place] lifts, holds or supports trunk or limbs, but provides less than half the effort. 2-Substantial/Maximal Assistance-helper does MORE THAN HALF the effort. [place] lifts or holds trunk or limbs and provides more than half the effort. 1-Umahojxhj-cohpyl does ALL the effort. Patient does none of the effort to complete the activity. Or, the assistance of 2 or more helpers is required for the patient to complete the activity. If activity was not attempted, code reason: 7-Patient Refused. 9-Not Applicable-not attempted and the patient did not perform the activity before the current illness, exacerbation or injury. 10-Not Attempted due to Environmental Limitations-(lack of equipment, weather restraints, etc.). 88-Not Attempted due to Medical Conditions or Safety Concerns. all TRFs mod I Gait Training Does the Patient Walk?: Yes Walk 10 feet (QC): 5 Walk 50 ft with 2 Turns(QC): 5 Walk 150 ft (QC): 5 Gait Persons Needed: 1 Gait Assistive Device: FWW assist for port O2 at 6 to 3 L , sats checked at regular intervals and able to titrate pt down to 3 L with sats at 93%, Exercises Seated Therapy Exercises: Long arc quads, Hip flexion Seated Reps: 10 Assessment Current Status: Good Progress PT Short Term Goals Short Term Goals Time Frame: Jan 03, 2021 Roll Left & Right: 6 Sit to lyin Lying to sitting on side of be: 6 Sit to stand: 4 (met) Chair/wfo-al-vtdes transfer: 4 (met) Walk 10 feet: 4 Walk 50 feet with two turns: 4 Walk 150 feet: 4 (met) PT Maid Cleaning Cooking Goals Care Home Goals PT Maid Cleaning Cooking Goals Time Frame: Jan 17, 2021 Roll Left & Right (QC): 6 Sit to Lying (QC): 6 Lying-Sitting on Side/Bed(QC): 6 Sit to Stand (QC): 6 Chair/Cqe-aq-Wjqou Xfer(QC): 6 Toilet Transfer (QC): 6 Car Transfer (QC): 6 Does the Patient Walk: Yes Walk 10 feet (QC): 6 Walk 50ft with 2 Turns (QC): 6 Walk 150 ft (QC): 6 Walking 10ft on Uneven Surface: 6 1 Step (curb) (QC): 4 4 Steps (QC): 4 12 Steps (QC): 88 Picking up an Object (QC): 88 Wheel 50 feet with 2 turns (QC: 9 Wheel 150 feet: 9 PT Plan Treatment/Plan Treatment Plan: Continue Plan of Care Treatment Plan: Education, Functional Activity Jennifer, Functional Strength, Group Therapy, Gait, Safety, Therapeutic Exercise, Transfers Treatment Duration: Jan 17, 2021 Frequency: At least 5 of 7 days/Wk (IRF) Estimated Hrs Per Day: 1.5 hours per day Patient and/or Family Agrees t: Yes Safety Risks/Education Patient Education: Gait Training, Disease Process, Safety Issues Teaching Recipient: Patient Teaching Methods: Demonstration, Discussion Response to Teaching: Verbalize Understanding, Return Demonstration, Reinforcement Needed Time/GCodes Time In: 1330 Time Out: 1400 Total Billed Treatment Time: 30 Total Billed Treatment 1,GT30m BRIDGER LUCAS PTA Jan 01, 2021 14:02
[2021-01-01 14:12] VITALS: BP 123/63
[2021-01-01 17:02] VITALS: BP 153/63
[2021-01-01] MEDS: TAMSULOSIN 0.4 MG (FLOMAX) CAP PO SCH (18:41)
[2021-01-01] MEDS: ACETAMINOPHEN 325 MG TABLET PO SCH (20:38)
[2021-01-01] MEDS: MELATONIN 3 MG TABLET PO SCH (20:39)
[2021-01-02] MEDS: RT-ALBUTEROL SULF 2.5 MG/3 ML PRE-MIX VIAL INH SCH ×6 (02:01→21:36)
--- NOTE | 2021-01-02 05:21 | PM&R Progress Note ---
Subjective HPI/CC On Admission Date Seen by Provider: Jan 02, 2021 Time Seen by Provider: 08:00 Subjective/Events-last exam 01/02/21: Pt now on 3 liters of oxygen Overall feels pretty good Carotid ultrasound reviewed and sent to Dr. Schwartz Strength is good Overall less SOB 01/01/21: Overall pt doing very well Aleven on his buttock will be changed Last antibiotic will be today Bowels moving Creatinine 1.36 12/31/20: Patient doing well BM++ APAP HS scheduled will be ordered Carotid USG will be obtained 12/30/20: Has had 4 bowel movements WBC is down Frustrated about requiring 6 L/min O2 Maxipime and Eraxis maintianed CXR reviewed 12/29/20: Patient doing well Bladder scan initiated Urecholine and Flomax ordered as he takes at home 6 stools yesterday Slept well 12/28/20: Pt doing pretty well Maintained on antibiotics Having some retention so Dr. Simmons will see him Pt doing well otherwise Checked meds and labs Review of Systems General: Fatigue Pulmonary: Dyspnea Objective Exam Vital Signs Vital Signs Date Time Temp Pulse Resp B/P (MAP) Pulse Ox O2 Delivery O2 Flow Rate FiO2 01/03/21 02:10 92 Nasal Cannula 3.00 01/02/21 17:14 37.2 80 20 155/68 (97) Capillary Refill : General Appearance: No Apparent Distress, WD/WN, Chronically ill HEENT: PERRL/EOMI, Normal ENT Inspection, Pharynx Normal Neck: Full Range of Motion, Normal Inspection, Non Tender, Supple, Carotid B ruit Respiratory: Chest Non Tender, Lungs Clear, No Accessory Muscle Use, No Respiratory Distress, Crackles, Decreased Breath Sounds Cardiovascular: Regular Rate, Rhythm, No Edema, No Gallop, No JVD, No Murmur, N ormal Peripheral Pulses Gastrointestinal: Normal Bowel Sounds, No Organomegaly, No Pulsatile Mass, Non Tender, Soft Back: Normal Inspection, No CVA Tenderness, No Vertebral Tenderness Extremity: Normal Capillary Refill, Normal Inspection, Normal Range of Motion, Non Tender, No Calf Tenderness, No Pedal Edema Neurologic/Psychiatric: Alert, Oriented x3, No Motor/Sensory Deficits, 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, Abnormal Gait, Motor Weakness Skin: Normal Color, Warm/Dry Lymphatic: No Adenopathy Results/Procedures Lab Patient resulted labs reviewed. FIM Transfers Therapy Code Descriptions/Definitions Functional [place] Measure: 0=Not Assessed/NA 4=Minimal Assistance 1=Total Assistance 5=Supervision or Setup 2=Maximal Assistance 6=Modified [place] 3=Moderate Assistance 7=Complete IndependenceSCALE: Activities may be completed with or without assistive devices. 5-Nvqtmixnde-geijzdc completes the activity by him/herself with no assistance from a helper. 5-Set-up or Clean-up Assistance-helper sets up or cleans up; patient completes activity. [place] assists only prior to or following the activity. 4-Supervision or Touching Assistance-helper provides verbal cues and/or touching/steadying and/or contact guard assistance as patient completes activity. Assistance may be provided throughout the activity or intermittently. 3-Partial/Moderate Assistance-helper does LESS THAN HALF the effort. [place] lifts, holds or supports trunk or limbs, but provides less than half the effort. 2-Substantial/Maximal Assistance-helper does MORE THAN HALF the effort. [place] lifts or holds trunk or limbs and provides more than half the effort. 1-Ijsmmqgfd-edobxu does ALL the effort. Patient does none of the effort to complete the activity. Or, the assistance of 2 or more helpers is required for the patient to complete the activity. If activity was not attempted, code reason: 7-Patient Refused. 9-Not Applicable-not attempted and the patient did not perform the activity before the current illness, exacerbation or injury. 10-Not Attempted due to Environmental Limitations-(lack of equipment, weather restraints, etc.). 88-Not Attempted due to Medical Conditions or Safety Concerns. Roll Left to Right (QC): 6 Sit to Lying (QC): 6 Sit to Stand (QC): 6 Chair/Oyp-hq-Xlgpl Xfer(QC): 5 Car Transfer (QC): 4 Gait Training Does the Patient Walk?: Yes Distance: 120'x2 Walk 10 feet (QC): 5 Walk 50 ft with 2 Turns(QC): 5 Walk 150 ft (QC): 5 Walking 10ft/uneven surface-QC: 4 Gait Persons Needed: 1 Gait Assistive Device: FWW Wheelchair Training Does the Pt Use a Wheelchair?: No Wheel 50 ft with 2 turns (QC): 9 Wheel 150 ft (QC): 9 Stair Training Stair Training: Handrails/: 1 handrail #of Steps: 1 1 Step (curb) (QC): 4 4 Steps (QC): 3 (CGA with cues for sequencing. ) 12 Steps (QC): 88 Balance Picking up an Object (QC): 7 (Patient refuses due to back pain) ADL-Treatment Eating (QC): 6 Oral Hygiene (QC): 7 Bathing Location: L Arm, R Arm, L Upper Leg, R Upper Leg, L Lower Leg (including foot), R Lower Leg (including foot), Chest, Abdomen, Buttocks, Inez cecily Area Shower/Bathe Self (QC): 5 Upper Body Dressing (QC): 5 Lower Body Dressing (QC): 4 On/Off Footwear (QC): 5 Toileting Hygiene (QC): 6 Toilet Transfer (QC): 6 Assessment/Plan Assessment and Plan Assess & Plan/Chief Complaint Assessment: Critical illness myopathy Acute on chronic respiratory failure Chronic hypoxia requires O2 dependence at home GIB Acute blood loss anemia PNA CHF AF Edema Urinary retention and OAB consulted Dr Simmons 12/28/20 Plan: Monitor O2 Lasix DC catheter Monitor pain IRF protocol 12/28/20: Monitor O2 Abx to complete Dr Simmons consult Bladder meds 12/29/20: Bladder meds O2 IRF protocol 12/30/20: Improved status O2 wean Monitor closely 12/31/20: Monitor BP Monitor O2 Carotid USG tomorrow 01/01/21: Monitor BP O2 Completed abx 01/02/21: Much improved status Weaned O2 Monitor for pain (1) Acute and chronic respiratory failure with hypoxia Status: Acute (2) PNA (pneumonia) Status: Acute (3) Severe sepsis Status: Acute (4) Rectal bleeding Status: Acute (5) Wheezing Status: Acute (6) T2DM (type 2 diabetes mellitus) Status: Chronic (7) Atrial fibrillation with RVR Status: Acute (8) Dyspnea (9) CVA (cerebral vascular accident) Status: Acute (10) Severe anemia Status: Acute (11) GI bleed Status: Acute MARY LAMBERT DO Jan 02, 2021 05:20
[2021-01-02 06:15] VITALS: BP 156/69
[2021-01-02] MEDS: CATHETER FLUSH 10 ML SYR IV SCH ×4 (06:15→20:58)
[2021-01-02] MEDS: BETHANECHOL 25 MG (URECHOLINE) TAB PO SCH ×4 (06:17→20:58)
[2021-01-02] MEDS: predniSONE 20 MG TAB PO SCH (06:17)
[2021-01-02] MEDS: guaiFENesin (MUCINEX) 600 MG TAB PO SCH ×2 (08:49→20:57)
[2021-01-02] MEDS: PANTOPRAZOLE 40 MG (PROTONIX) TAB PO SCH ×2 (08:49→20:58)
[2021-01-02] MEDS: polyethylene glycoL POWDER 17 GM (MIRALAX) PACK PO SCH ×2 (08:50→21:05)
[2021-01-02] MEDS: DOCUSATE SODIUM 100 MG (COLACE) CAP PO SCH ×4 (08:50→21:05)
[2021-01-02] MEDS: SENNA W/DOCUSATE (SENOKOT S) TABLET PO SCH ×2 (08:53→21:06)
--- NOTE | 2021-01-02 10:00 | Physical Therapy Daily Note ---
PT Daily Note-Current Subjective Pt. agrees to Rx. Agrees to practice safety with gait using extended O2 tubing. Pain Location: No Pain Reported Mental Status Patient Orientation: Normal For Age Attachments: Oxygen (2 to 3 L) Transfers SCALE: Activities may be completed with or without assistive devices. 4-Bxcmqbrwfv-lrkwcup completes the activity by him/herself with no assistance from a helper. 5-Set-up or Clean-up Assistance-helper sets up or cleans up; patient completes activity. [place] assists only prior to or following the activity. 4-Supervision or Touching Assistance-helper provides verbal cues and/or touching/steadying and/or contact guard assistance as patient completes activity. Assistance may be provided throughout the activity or intermittently. 3-Partial/Moderate Assistance-helper does LESS THAN HALF the effort. [place] lifts, holds or supports trunk or limbs, but provides less than half the effort. 2-Substantial/Maximal Assistance-helper does MORE THAN HALF the effort. [place] lifts or holds trunk or limbs and provides more than half the effort. 5-Vpdcknyrn-piqlok does ALL the effort. Patient does none of the effort to complete the activity. Or, the assistance of 2 or more helpers is required for the patient to complete the activity. If activity was not attempted, code reason: 7-Patient Refused. 9-Not Applicable-not attempted and the patient did not perform the activity before the current illness, exacerbation or injury. 10-Not Attempted due to Environmental Limitations-(lack of equipment, weather restraints, etc.). 88-Not Attempted due to Medical Conditions or Safety Concerns. Roll Left & Right (QC): 6 Sit to Lying (QC): 6 Lying to Sitting/Side of Bed(Q: 6 Sit to Stand (QC): 6 Chair/Rwg-hw-Mqnaq Xfer(QC): 6 Gait Training Does the Patient Walk?: Yes Walk 10 feet (QC): 5 Walk 50 ft with 2 Turns(QC): 5 Walk 150 ft (QC): 5 Gait Persons Needed: 1 Gait Assistive Device: FWW gait with much emphasis on managing O2 tubing in safe manner, many turns and stops to manage tube . Pt. titrating O2 with O2 down to 2 L with sats steady > 90%. no c/o SOB Exercises Seated Therapy Exercises: Ankle pumps, Sit to stand, Long arc quads, Hip flexion, Hip abd/add Seated Reps: 15 NuStep Minutes: 10 NuStep Workload: 3 Assessment Current Status: Good Progress on 3 L O2 upon entering he room, titrated down to 2 L with activity , pts sats consistently > 90% PT Short Term Goals Short Term Goals Time Frame: Jan 03, 2021 Roll Left & Right: 6 Sit to lyin Lying to sitting on side of be: 6 Sit to stand: 4 (met) Chair/gsq-nu-yoltj transfer: 4 (met) Walk 10 feet: 4 Walk 50 feet with two turns: 4 Walk 150 feet: 4 (met) PT Director Statistical Programming Goals Director Statistical Programming Goals PT Correction Goals Time Frame: Jan 17, 2021 Roll Left & Right (QC): 6 Sit to Lying (QC): 6 Lying-Sitting on Side/Bed(QC): 6 Sit to Stand (QC): 6 Chair/Rxo-ew-Qmbfe Xfer(QC): 6 Toilet Transfer (QC): 6 Car Transfer (QC): 6 Does the Patient Walk: Yes Walk 10 feet (QC): 6 Walk 50ft with 2 Turns (QC): 6 Walk 150 ft (QC): 6 Walking 10ft on Uneven Surface: 6 1 Step (curb) (QC): 4 4 Steps (QC): 4 12 Steps (QC): 88 Picking up an Object (QC): 88 Wheel 50 feet with 2 turns (QC: 9 Wheel 150 feet: 9 PT Plan Treatment/Plan Treatment Plan: Continue Plan of Care Treatment Plan: Education, Functional Activity Jennifer, Functional Strength, Group Therapy, Gait, Safety, Therapeutic Exercise, Transfers Treatment Duration: Jan 17, 2021 Frequency: At least 5 of 7 days/Wk (IRF) Estimated Hrs Per Day: 1.5 hours per day Patient and/or Family Agrees t: Yes Safety Risks/Education Patient Education: Gait Training, Transfer Techniques, Correct Positioning, Safety Issues Teaching Recipient: Patient Teaching Methods: Demonstration, Discussion Response to Teaching: Verbalize Understanding, Return Demonstration, Reinforcement Needed Time/GCodes Time In: 900 Time Out: 1000 Total Billed Treatment Time: 60 Total Billed Treatment 1,GT35m,EX25m BRIDGER LUCAS DIRECT SUPPORT PROFESSIONAL Jan 02, 2021 10:00
--- NOTE | 2021-01-02 10:30 | Occupational Ther Daily Note ---
OT Current Status-Daily Note Subjective Pt alert, sitting in recliner. Pt agrees to therapy. No c/o pain at this time. Mental Status/Objective Patient Orientation: Person, Place, Time, Situation Attachments: IV, Oxygen (3L) ADL-Treatment Pt declines shower due to fear of falling stating that he will be taking a sponge bath at home. Pt set up for sponge bath then completes by self. Pt ambulated to closet to retrieve clothing using FWW with SBA due to low endurance. Pt began to shake while retrieving clothing, ambulated back to recliner for recovery break. Pt completed upper and lower body dressing by self. Using sock aide and reach, pt donned/doffed socks independently. Pt then ambulated to bathroom with SBA for safety using FWW. Pt transferred to toilet and completed toilet hygiene independently. Pt ambulated to sink to wash hands. Therapy Code Descriptions/Definitions Functional [place] Measure: 0=Not Assessed/NA 4=Minimal Assistance 1=Total Assistance 5=Supervision or Setup 2=Maximal Assistance 6=Modified [place] 3=Moderate Assistance 7=Complete IndependenceSCALE: Activities may be completed with or without assistive devices. 0-Qddnaxzsxp-sguwvdm completes the activity by him/herself with no assistance from a helper. 5-Set-up or Clean-up Assistance-helper sets up or cleans up; patient completes activity. [place] assists only prior to or following the activity. 4-Supervision or Touching Assistance-helper provides verbal cues and/or touching/steadying and/or contact guard assistance as patient completes activity. Assistance may be provided throughout the activity or intermittently. 3-Partial/Moderate Assistance-helper does LESS THAN HALF the effort. [place] lifts, holds or supports trunk or limbs, but provides less than half the effort. 2-Substantial/Maximal Assistance-helper does MORE THAN HALF the effort. [place] lifts or holds trunk or limbs and provides more than half the effort. 3-Cpiqgopag-oumrdz does ALL the effort. Patient does none of the effort to complete the activity. Or, the assistance of 2 or more helpers is required for the patient to complete the activity. If activity was not attempted, code reason: 7-Patient Refused. 9-Not Applicable-not attempted and the patient did not perform the activity before the current illness, exacerbation or injury. 10-Not Attempted due to Environmental Limitations-(lack of equipment, weather restraints, etc.). 88-Not Attempted due to Medical Conditions or Safety Concerns. Shower/Bathe Self (QC): 5 Upper Body Dressing (QC): 5 On/Off Footwear: 6 Toileting Hygiene (QC): 6 Toilet Transfer (QC): 6 Monitored O2 sats on 3L, pt dropped to 87 then quickly increased to 91 with recovery break. Other Treatment Pt completed B UE strengthening to increase strength in gross/fine motor skills for daily functional tasks. Table was presented above chest height to extend reach and increase gross motor strength while completing resistive fine motor tasks to increase pinch and dexterity. After session, pt sitting in recliner with call light/phone in reach. Nrsg present in room. All needs met. OT Short Term Goals Short Term Goals Time Frame: Jan 03, 2021 Eatin Oral hygiene: 5 Toileting hygiene: 4 Shower/bathe self: 4 Upper body dressin Lower body dressin (with AE) Putting on/taking off footwear: 4 (with AE) OT Upholstery Department Supervisor Goals Retirement Goals Time Frame: Jan 10, 2021 Eating (QC): 6 Oral Hygiene (QC): 6 Toileting Hygiene (QC): 6 Shower/Bathe Self (QC): 5 Upper Body Dressing (QC): 6 Lower Body Dressing (QC): 6 On/Off Footwear (QC): 6 (with AE) Additional Goals: 1-Demonstrate ADL Tasks, 2-Verbalize Understanding, 3- ImproveStrength/Jennifer 1=Demonstrate adherence to instructed precautions during ADL tasks. 2=Patient will verbalize/demonstrate understanding of assistive devices/modifications for ADL. 3=Patient will improve strength/tolerance for activity to enable patient to perform ADL's. OT Education/Plan Problem List/Assessment Assessment: Decreased Activ Tolerance, Decreased UE Strength, Impaired Self- Care Skills Discharge Recommendations Plan/Recommendations: Continue POC Treatment Plan/Plan of Care Patient would benefit from OT for education, treatment and training to promote independence in ADL's, mobility, safety and/or upper extremity function for ADL's. Plan of Care: ADL Retraining, Functional Mobility, UE Funct Exercise/Act Treatment Duration: Jan 10, 2021 Frequency: At least 5 of 7 days/Wk (IRF) Estimated Hrs Per Day: 1.5 hours per day Agreement: Yes Rehab Potential: Good Time/GCodes Start Time: 07:30 Stop Time: 09:00 Total Time Billed (hr/min): 90 Billed Treatment Time 1 visit-ADL 3 (45 min) FA 1 (15 min) EX 2 (30 min) PRINCE SUAZO Jan 02, 2021 10:30
--- NOTE | 2021-01-02 11:57 | Progress Note - Urology ---
Progress Note-Urology Progress Notes/Assess & Plan Progress/Assessment & Plan VOIDING WELL. EMPTIES. PVR 77CC. WE WILL SEE AT THE OFFICE SCHEDULED NEXT MONTH Final Diagnosis URINE RETENTION ( RESOLVED) CALLY GRUBBS MD Jan 02, 2021 11:57
--- NOTE | 2021-01-02 14:14 | Physical Therapy Daily Note ---
PT Daily Note-Current Subjective Pt. agrees to Rx. States he misses home and is very tired of this food. Pain Location: No Pain Reported Mental Status Patient Orientation: Person, Place, Situation Attachments: Oxygen (3L) Transfers SCALE: Activities may be completed with or without assistive devices. 7-Xqppmzkpaj-bgowzqw completes the activity by him/herself with no assistance from a helper. 5-Set-up or Clean-up Assistance-helper sets up or cleans up; patient completes activity. [place] assists only prior to or following the activity. 4-Supervision or Touching Assistance-helper provides verbal cues and/or touching/steadying and/or contact guard assistance as patient completes activity. Assistance may be provided throughout the activity or intermittently. 3-Partial/Moderate Assistance-helper does LESS THAN HALF the effort. [place] lifts, holds or supports trunk or limbs, but provides less than half the effort. 2-Substantial/Maximal Assistance-helper does MORE THAN HALF the effort. [place] lifts or holds trunk or limbs and provides more than half the effort. 9-Nzhhvlbdw-tcqcny does ALL the effort. Patient does none of the effort to complete the activity. Or, the assistance of 2 or more helpers is required for the patient to complete the activity. If activity was not attempted, code reason: 7-Patient Refused. 9-Not Applicable-not attempted and the patient did not perform the activity before the current illness, exacerbation or injury. 10-Not Attempted due to Environmental Limitations-(lack of equipment, weather restraints, etc.). 88-Not Attempted due to Medical Conditions or Safety Concerns. sit to stand x 8 trials mod I Gait Training Does the Patient Walk?: Yes Gait Assistive Device: FWW 50ft x 4 practicing management of O2 tubing in small space like home. Pt. needs many cues and instruction for safety. O2 monitored during exercise /gait with sats dropping to 88% on 2.5 L O2. Raised back to 3L with improved sats at 90% Exercises Seated Therapy Exercises: Ankle pumps, Sit to stand, Long arc quads, Hip flexion, Hip abd/add Seated Reps: 10 Assessment Current Status: Good Progress no c/o pain or SOB, still requires cuing and assistance for O2 tubing, sats dropping if O2 below 3 L PT Short Term Goals Short Term Goals Time Frame: Jan 03, 2021 Roll Left & Right: 6 Sit to lyin Lying to sitting on side of be: 6 Sit to stand: 4 (met) Chair/pou-rf-ekviy transfer: 4 (met) Walk 10 feet: 4 Walk 50 feet with two turns: 4 Walk 150 feet: 4 (met) PT Silk Screen Repairer Goals [place]k Screen Repairer Goals PT [place] Screen Repairer Goals Time Frame: Jan 17, 2021 Roll Left & Right (QC): 6 Sit to Lying (QC): 6 Lying-Sitting on Side/Bed(QC): 6 Sit to Stand (QC): 6 Chair/Wra-nf-Vjuim Xfer(QC): 6 Toilet Transfer (QC): 6 Car Transfer (QC): 6 Does the Patient Walk: Yes Walk 10 feet (QC): 6 Walk 50ft with 2 Turns (QC): 6 Walk 150 ft (QC): 6 Walking 10ft on Uneven Surface: 6 1 Step (curb) (QC): 4 4 Steps (QC): 4 12 Steps (QC): 88 Picking up an Object (QC): 88 Wheel 50 feet with 2 turns (QC: 9 Wheel 150 feet: 9 PT Plan Treatment/Plan Treatment Plan: Continue Plan of Care Treatment Plan: Education, Functional Activity Jennifer, Functional Strength, Group Therapy, Gait, Safety, Therapeutic Exercise, Transfers Treatment Duration: Jan 17, 2021 Frequency: At least 5 of 7 days/Wk (IRF) Estimated Hrs Per Day: 1.5 hours per day Patient and/or Family Agrees t: Yes Safety Risks/Education Patient Education: Gait Training, Correct Positioning, Disease Process, Safety Issues Teaching Recipient: Patient Teaching Methods: Demonstration, Discussion Response to Teaching: Verbalize Understanding, Return Demonstration, Reinforcement Needed Time/GCodes Time In: 1335 Time Out: 1405 Total Billed Treatment Time: 30 Total Billed Treatment 1,GT30m BRIDGER LUCAS PTA Jan 02, 2021 14:14
[2021-01-02 17:14] VITALS: BP 155/68
[2021-01-02] MEDS: TAMSULOSIN 0.4 MG (FLOMAX) CAP PO SCH (18:24)
[2021-01-02] MEDS: MELATONIN 3 MG TABLET PO SCH (20:58)
[2021-01-02] MEDS: ACETAMINOPHEN 325 MG TABLET PO SCH (20:58)
[2021-01-03] MEDS: RT-ALBUTEROL SULF 2.5 MG/3 ML PRE-MIX VIAL INH SCH ×6 (02:10→21:09)
[2021-01-03 05:02] VITALS: BP 160/66
[2021-01-03] MEDS: predniSONE 20 MG TAB PO SCH (05:36)
[2021-01-03] MEDS: BETHANECHOL 25 MG (URECHOLINE) TAB PO SCH ×4 (05:36→20:12)
[2021-01-03] MEDS: CATHETER FLUSH 10 ML SYR IV SCH ×3 (05:37→20:13)
--- NOTE | 2021-01-03 08:35 | PM&R Progress Note ---
Subjective HPI/CC On Admission Date Seen by Provider: Jan 03, 2021 Time Seen by Provider: 08:30 Subjective/Events-last exam 01/03/21: Pt doing pretty well Post void residual is minimal Will DC tomorrow Down to 2 liters of oxygen right now Antibiotic and Eraxis done Carotid ultrasound sent to Dr. Schwartz Increased angst about his lungs and repeating multiple CXR's so I conferred with Dr Rocha and concluded CXR take time to clear and will be ready for repeat as outpatient when Dr Rocha sees the patient 01/02/21: Pt now on 3 liters of oxygen Overall feels pretty good Carotid ultrasound reviewed and sent to Dr. Schwartz Strength is good Overall less SOB 01/01/21: Overall pt doing very well Aleven on his buttock will be changed Last antibiotic will be today Bowels moving Creatinine 1.36 12/31/20: Patient doing well BM++ APAP HS scheduled will be ordered Carotid USG will be obtained 12/30/20: Has had 4 bowel movements WBC is down Frustrated about requiring 6 L/min O2 Maxipime and Eraxis maintianed CXR reviewed 12/29/20: Patient doing well Bladder scan initiated Urecholine and Flomax ordered as he takes at home 6 stools yesterday Slept well 12/28/20: Pt doing pretty well Maintained on antibiotics Having some retention so Dr. Simmons will see him Pt doing well otherwise Checked meds and labs Review of Systems General: Fatigue Pulmonary: Dyspnea Objective Exam Vital Signs Vital Signs Date Time Temp Pulse Resp B/P (MAP) Pulse Ox O2 Delivery O2 Flow Rate FiO2 01/04/21 01:47 93 Nasal Cannula 1.50 01/03/21 17:00 37.2 79 20 151/65 (93) Capillary Refill : General Appearance: No Apparent Distress, WD/WN, Chronically ill HEENT: PERRL/EOMI, Normal ENT Inspection, Pharynx Normal Neck: Full Range of Motion, Normal Inspection, Non Tender, Supple, Carotid Bruit Respiratory: Chest Non Tender, Lungs Clear, No Accessory Muscle Use, No Respiratory Distress, Decreased Breath Sounds Cardiovascular: Regular Rate, Rhythm, No Edema, No Gallop, No JVD, No Murmur, Normal Peripheral Pulses Gastrointestinal: Normal Bowel Sounds, No Organomegaly, No Pulsatile Mass, Non Tender, Soft Back: Normal Inspection, No CVA Tenderness, No Vertebral Tenderness Extremity: Normal Capillary Refill, Normal Inspection, Normal Range of Motion, Non Tender, No Calf Tenderness, No Pedal Edema Neurologic/Psychiatric: Alert, Oriented x3, No Motor/Sensory Deficits, 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, Abnormal Gait, Motor Weakness Skin: Normal Color, Warm/Dry Lymphatic: No Adenopathy Results/Procedures Lab Patient resulted labs reviewed. FIM Transfers Therapy Code Descriptions/Definitions Functional [place] Measure: 0=Not Assessed/NA 4=Minimal Assistance 1=Total Assistance 5=Supervision or Setup 2=Maximal Assistance 6=Modified [place] 3=Moderate Assistance 7=Complete IndependenceSCALE: Activities may be completed with or without assistive devices. 3-Hkophwevxs-vaaeebs completes the activity by him/herself with no assistance from a helper. 5-Set-up or Clean-up Assistance-helper sets up or cleans up; patient completes activity. [place] assists only prior to or following the activity. 4-Supervision or Touching Assistance-helper provides verbal cues and/or touching/steadying and/or contact guard assistance as patient completes activity. Assistance may be provided throughout the activity or intermittently. 3-Partial/Moderate Assistance-helper does LESS THAN HALF the effort. [place] lifts, holds or supports trunk or limbs, but provides less than half the effort. 2-Substantial/Maximal Assistance-helper does MORE THAN HALF the effort. [place] lifts or holds trunk or limbs and provides more than half the effort. 6-Rwulbeozz-jtburf does ALL the effort. Patient does none of the effort to complete the activity. Or, the assistance of 2 or more helpers is required for the patient to complete the activity. If activity was not attempted, code reason: 7-Patient Refused. 9-Not Applicable-not attempted and the patient did not perform the activity before the current illness, exacerbation or injury. 10-Not Attempted due to Environmental Limitations-(lack of equipment, weather restraints, etc.). 88-Not Attempted due to Medical Conditions or Safety Concerns. Roll Left to Right (QC): 6 Sit to Lying (QC): 6 Sit to Stand (QC): 6 Chair/Edq-yt-Bifgi Xfer(QC): 6 Car Transfer (QC): 4 Gait Training Does the Patient Walk?: Yes Distance: 120'x2 Walk 10 feet (QC): 5 Walk 50 ft with 2 Turns(QC): 5 Walk 150 ft (QC): 5 Walking 10ft/uneven surface-QC: 4 Gait Persons Needed: 1 Gait Assistive Device: FWW Wheelchair Training Does the Pt Use a Wheelchair?: No Wheel 50 ft with 2 turns (QC): 9 Wheel 150 ft (QC): 9 Stair Training Stair Training: Handrails/: 1 handrail #of Steps: 1 1 Step (curb) (QC): 4 4 Steps (QC): 3 (CGA with cues for sequencing. ) 12 Steps (QC): 88 Balance Picking up an Object (QC): 7 (Patient refuses due to back pain) ADL-Treatment Eating (QC): 6 Oral Hygiene (QC): 7 Bathing Location: L Arm, R Arm, L Upper Leg, R Upper Leg, L Lower Leg (including foot), R Lower Leg (including foot), Chest, Abdomen, Buttocks, Perineal Area Shower/Bathe Self (QC): 5 Upper Body Dressing (QC): 5 Lower Body Dressing (QC): 4 On/Off Footwear (QC): 6 Toileting Hygiene (QC): 6 Toilet Transfer (QC): 6 Assessment/Plan Assessment and Plan Assess & Plan/Chief Complaint Assessment: Critical illness myopathy Acute on chronic respiratory failure Chronic hypoxia requires O2 dependence at home GIB Acute blood loss anemia PNA CHF AF Edema Urinary retention and OAB consulted Dr Simmons 12/28/20 Plan: Monitor O2 Lasix DC catheter Monitor pain IRF protocol 12/28/20: Monitor O2 Abx to complete Dr Simmons consult Bladder meds 12/29/20: Bladder meds O2 IRF protocol 12/30/20: Improved status O2 wean Monitor closely 12/31/20: Monitor BP Monitor O2 Carotid USG tomorrow 01/01/21: Monitor BP O2 Completed abx 01/02/21: Much improved status Weaned O2 Monitor for pain 01/03/21: Monitor lung status Dr Rocha will see him as outpatient DC tomorrow (1) Acute and chronic respiratory failure with hypoxia Status: Acute (2) PNA (pneumonia) Status: Acute (3) Severe sepsis Status: Acute (4) Rectal bleeding Status: Acute (5) Wheezing Status: Acute (6) T2DM (type 2 diabetes mellitus) Status: Chronic (7) Atrial fibrillation with RVR Status: Acute (8) Dyspnea (9) CVA (cerebral vascular accident) Status: Acute (10) Severe anemia Status: Acute (11) GI bleed Status: Acute MARY LAMBERT DO Jan 03, 2021 08:35
[2021-01-03] MEDS: DOCUSATE SODIUM 100 MG (COLACE) CAP PO SCH ×4 (08:44→20:14)
[2021-01-03] MEDS: polyethylene glycoL POWDER 17 GM (MIRALAX) PACK PO SCH ×2 (08:45→20:14)
[2021-01-03] MEDS: PANTOPRAZOLE 40 MG (PROTONIX) TAB PO SCH ×2 (08:46→20:12)
[2021-01-03] MEDS: guaiFENesin (MUCINEX) 600 MG TAB PO SCH ×2 (08:46→20:12)
[2021-01-03 08:49] VITALS: BP 141/45
[2021-01-03] MEDS: SENNA W/DOCUSATE (SENOKOT S) TABLET PO SCH ×2 (08:49→20:14)
--- NOTE | 2021-01-03 09:05 | Occupational Ther Daily Note ---
OT Current Status-Daily Note Subjective Pt alert, sitting in recliner. Nrsg in room with pt. Pt agrees to therapy. No c/o pain at this time. Mental Status/Objective Patient Orientation: Person, Place, Time, Situation Attachments: IV, Oxygen (2L) ADL-Treatment Pt requests sponge bath due to fear of falling in shower. After set up, pt complete sponge bath independently. Pt retrieves clothing using FWW with supervision due to low endurance. Pt complete upper body dressing independently. Pt doffs lower body clothing and footwear independently. Using AE, pt dons lower body clothing and footwear independently. Therapy Code Descriptions/Definitions Functional [place] Measure: 0=Not Assessed/NA 4=Minimal Assistance 1=Total Assistance 5=Supervision or Setup 2=Maximal Assistance 6=Modified [place] 3=Moderate Assistance 7=Complete IndependenceSCALE: Activities may be completed with or without assistive devices. 3-Lsmdivhouh-flfiwdj completes the activity by him/herself with no assistance from a helper. 5-Set-up or Clean-up Assistance-helper sets up or cleans up; patient completes activity. [place] assists only prior to or following the activity. 4-Supervision or Touching Assistance-helper provides verbal cues and/or touching/steadying and/or contact guard assistance as patient completes activ ity. Assistance may be provided throughout the activity or intermittently. 3-Partial/Moderate Assistance-helper does LESS THAN HALF the effort. [place] lifts, holds or supports trunk or limbs, but provides less than half the effort. 2-Substantial/Maximal Assistance-helper does MORE THAN HALF the effort. [place] lifts or holds trunk or limbs and provides more than half the effort. 2-Vbmylsvia-gvogsx does ALL the effort. Patient does none of the effort to complete the activity. Or, the assistance of 2 or more helpers is required for the patient to complete the activity. If activity was not attempted, code reason: 7-Patient Refused. 9-Not Applicable-not attempted and the patient did not perform the activity before the current illness, exacerbation or injury. 10-Not Attempted due to Environmental Limitations-(lack of equipment, weather restraints, etc.). 88-Not Attempted due to Medical Conditions or Safety Concerns. Eating (QC): 6 (Pt able to complete own meal set up and use regular utensils to eat.) Shower/Bathe Self (QC): 5 Upper Body Dressing (QC): 4 (Supervision only to retrieve clothing. Independent with dressing.) Lower Body Dressing (QC): 4 (Supervision only to retrieve clothing. Independent with dressing.) On/Off Footwear: 6 Toileting Hygiene (QC): 6 Toilet Transfer (QC): 6 Other Treatment Pt completed arm bike for 10 min with minimal resistance to increase strength and activity tolerance for daily functional tasks. After session, pt sitting in recliner with call light/phone in reach. All needs met in room. OT Short Term Goals Short Term Goals Time Frame: Jan 03, 2021 Eatin Oral hygiene: 5 Toileting hygiene: 4 Shower/bathe self: 4 Upper body dressin Lower body dressin (with AE) Putting on/taking off footwear: 4 (with AE) OT Unattended Ground Sensor Specialist Goals Unattended Ground Sensor Specialist Goals Time Frame: Jan 10, 2021 Eating (QC): 6 (met) Oral Hygiene (QC): 6 (met) Toileting Hygiene (QC): 6 (met) Shower/Bathe Self (QC): 5 (met) Upper Body Dressing (QC): 6 (not met) Lower Body Dressing (QC): 6 (not met) On/Off Footwear (QC): 6 (with AE met) Additional Goals: 1-Demonstrate ADL Tasks, 2-Verbalize Understanding, 3- ImproveStrength/Jennifer 1=Demonstrate adherence to instructed precautions during ADL tasks. 2=Patient will verbalize/demonstrate understanding of assistive devices/modifications for ADL. 3=Patient will improve strength/tolerance for activity to enable patient to perform ADL's. OT Education/Plan Problem List/Assessment Assessment: Decreased Activ Tolerance, Impaired Self-Care Skills Discharge Recommendations Plan/Recommendations: Continue POC Treatment Plan/Plan of Care Patient would benefit from OT for education, treatment and training to promote independence in ADL's, mobility, safety and/or upper extremity function for ADL's. Plan of Care: ADL Retraining, Functional Mobility, UE Funct Exercise/Act Treatment Duration: Jan 10, 2021 Frequency: At least 5 of 7 days/Wk (IRF) Estimated Hrs Per Day: 1.5 hours per day Agreement: Yes Rehab Potential: Good Time/GCodes Start Time: 08:45 Stop Time: 10:00 Total Time Billed (hr/min): 75 Billed Treatment Time 1 visit-ADL 4 (65 min) EX 1 (10 min) PRINCE SUAZO Jan 03, 2021 09:04
--- NOTE | 2021-01-03 11:09 | Physical Therapy Daily Note ---
PT Daily Note-Current Subjective Pt. in recliner. States he is unhappy with some things here then apologizes for sharing this. Pt. then states he is really ready to get home , misses his and feels he would do much better if he could DC. Pts c/o are that he is very tired of the food, that it is scheduled poorly and that several ancillary servi indu come in at inconvenient times. Pain Location: No Pain Reported Mental Status Patient Orientation: Person, Place, Situation Attachments: Oxygen (3L) pt. needed multiple instruction cues and safety warnings about use of extended O2, wrappin it around his foot and walker and his waiste 1 time. Transfers SCALE: Activities may be completed with or without assistive devices. 7-Nvjbrlvyem-tnibont completes the activity by him/herself with no assistance from a helper. 5-Set-up or Clean-up Assistance-helper sets up or cleans up; patient completes activity. [place] assists only prior to or following the activity. 4-Supervision or Touching Assistance-helper provides verbal cues and/or touching/steadying and/or contact guard assistance as patient completes activity. Assistance may be provided throughout the activity or intermittently. 3-Partial/Moderate Assistance-helper does LESS THAN HALF the effort. [place] lifts, holds or supports trunk or limbs, but provides less than half the effort. 2-Substantial/Maximal Assistance-helper does MORE THAN HALF the effort. [place] lifts or holds trunk or limbs and provides more than half the effort. 0-Pfejufyxo-taumjh does ALL the effort. Patient does none of the effort to complete the activity. Or, the assistance of 2 or more helpers is required for the patient to complete the activity. If activity was not attempted, code reason: 7-Patient Refused. 9-Not Applicable-not attempted and the patient did not perform the activity before the current illness, exacerbation or injury. 10-Not Attempted due to Environmental Limitations-(lack of equipment, weather restraints, etc.). 88-Not Attempted due to Medical Conditions or Safety Concerns. Roll Left & Right (QC): 6 Sit to Lying (QC): 6 Lying to Sitting/Side of Bed(Q: 6 Sit to Stand (QC): 6 Chair/Xam-co-Aqerk Xfer(QC): 6 Toilet Transfer (QC): 6 Gait Training Does the Patient Walk?: Yes Walk 10 feet (QC): 5 Walk 50 ft with 2 Turns(QC): 5 Walk 150 ft (QC): 5 Gait Persons Needed: 1 Gait Assistive Device: FWW gait was focused on monitoring O2 with activity as well as instruction in safety while using extended O2 tubing. Pt. required repeated instruction for safety with O2 tubing when making turns etc and had incidents yesterday and today where he needed assist to prevent issues. Pt states his assists him at home with tubing as he gets around his house. O2 sats on 2 L ( which is what O2 was on upon entering room) at rest with sats at 95%, with ambulation 100ft sats dropped to 85%, O2 up to 3 L sats again drop to 87%, at rest pt. recovers quickly. Pt. left in room at 3 L with sats at 95%. will cont to attempt titration Stair Training Stair Training: Handrails/: 1 handrail (like home) #of Steps: 4 4 Steps (QC): 4 Exercises Seated Therapy Exercises: Ankle pumps, Sit to stand, Long arc quads, Hip flexion, Hip abd/add Seated Reps: 12 Assessment Current Status: Good Progress hoping to train in O2 tube management soon, hope for DC soon as pt. seems to be somewhat depressed and expresses that his home, his wifes company and her good food would fix it all PT Short Term Goals Short Term Goals Time Frame: Jan 03, 2021 Roll Left & Right: 6 Sit to lyin Lying to sitting on side of be: 6 Sit to stand: 4 (met) Chair/bfh-sq-nvgpw transfer: 4 (met) Walk 10 feet: 4 Walk 50 feet with two turns: 4 Walk 150 feet: 4 (met) PT Information Resources Manager Goals Fdc Goals PT Fdc Goals Time Frame: Jan 17, 2021 Roll Left & Right (QC): 6 Sit to Lying (QC): 6 Lying-Sitting on Side/Bed(QC): 6 Sit to Stand (QC): 6 Chair/Xmv-vn-Eyebk Xfer(QC): 6 Toilet Transfer (QC): 6 Car Transfer (QC): 6 Does the Patient Walk: Yes Walk 10 feet (QC): 6 Walk 50ft with 2 Turns (QC): 6 Walk 150 ft (QC): 6 Walking 10ft on Uneven Surface: 6 1 Step (curb) (QC): 4 4 Steps (QC): 4 12 Steps (QC): 88 Picking up an Object (QC): 88 Wheel 50 feet with 2 turns (QC: 9 Wheel 150 feet: 9 PT Plan Treatment/Plan Treatment Plan: Continue Plan of Care Treatment Plan: Education, Functional Activity Jennifer, Functional Strength, Group Therapy, Gait, Safety, Therapeutic Exercise, Transfers Treatment Duration: Jan 17, 2021 Frequency: At least 5 of 7 days/Wk (IRF) Estimated Hrs Per Day: 1.5 hours per day Patient and/or Family Agrees t: Yes Safety Risks/Education Patient Education: Gait Training, Transfer Techniques, Steps, Correct Positioning, Disease Process, Safety Issues Teaching Recipient: Patient Teaching Methods: Demonstration, Discussion Response to Teaching: Verbalize Understanding, Return Demonstration, Reinforcement Needed Time/GCodes Time In: 1000 Time Out: 1030 Total Billed Treatment Time: 60 Total Billed Treatment 1,GT40m,FA20m BRIDGER LUCAS PTA Jan 03, 2021 11:09
--- NOTE | 2021-01-03 13:18 | Occupational Ther Daily Note ---
OT Current Status-Daily Note Subjective Pt alert, sitting in recliner. Pt agrees to therapy. No c/o pain at this time. Mental Status/Objective Patient Orientation: Person, Place, Time, Situation ADL-Treatment Therapy Code Descriptions/Definitions Functional [place] Measure: 0=Not Assessed/NA 4=Minimal Assistance 1=Total Assistance 5=Supervision or Setup 2=Maximal Assistance 6=Modified [place] 3=Moderate Assistance 7=Complete IndependenceSCALE: Activities may be completed with or without assistive devices. 2-Jwpswxdzvk-vjqnfep completes the activity by him/herself with no assistance from a helper. 5-Set-up or Clean-up Assistance-helper sets up or cleans up; patient completes activity. [place] assists only prior to or following the activity. 4-Supervision or Touching Assistance-helper provides verbal cues and/or touchi ng/steadying and/or contact guard assistance as patient completes activity. Assistance may be provided throughout the activity or intermittently. 3-Partial/Moderate Assistance-helper does LESS THAN HALF the effort. [place] lifts, holds or supports trunk or limbs, but provides less than half the effort. 2-Substantial/Maximal Assistance-helper does MORE THAN HALF the effort. [place] lifts or holds trunk or limbs and provides more than half the effort. 9-Cvxcodwaz-qrntsy does ALL the effort. Patient does none of the effort to complete the activity. Or, the assistance of 2 or more helpers is required for the patient to complete the activity. If activity was not attempted, code reason: 7-Patient Refused. 9-Not Applicable-not attempted and the patient did not perform the activity before the current illness, exacerbation or injury. 10-Not Attempted due to Environmental Limitations-(lack of equipment, weather restraints, etc.). 88-Not Attempted due to Medical Conditions or Safety Concerns. Oral Hygiene (QC): 6 (Pt able to complete own oral care sitting/standing at sink. Pt will sit when fatigued.) OT Short Term Goals Short Term Goals Time Frame: Jan 03, 2021 Eatin Oral hygiene: 5 Toileting hygiene: 4 Shower/bathe self: 4 Upper body dressin Lower body dressin (with AE) Putting on/taking off footwear: 4 (with AE) OT Intermediate Goals Senior Case Manager Goals Time Frame: Jan 10, 2021 Eating (QC): 6 (met) Oral Hygiene (QC): 6 (met) Toileting Hygiene (QC): 6 (met) Shower/Bathe Self (QC): 5 (met) Upper Body Dressing (QC): 6 (not met) Lower Body Dressing (QC): 6 (not met) On/Off Footwear (QC): 6 (with AE met) Additional Goals: 1-Demonstrate ADL Tasks, 2-Verbalize Understanding, 3- ImproveStrength/Jennifer 1=Demonstrate adherence to instructed precautions during ADL tasks. 2=Patient will verbalize/demonstrate understanding of assistive devices/modifications for ADL. 3=Patient will improve strength/tolerance for activity to enable patient to perform ADL's. OT Education/Plan Problem List/Assessment Assessment: Decreased Activ Tolerance Discharge Recommendations Plan/Recommendations: Continue POC Treatment Plan/Plan of Care Patient would benefit from OT for education, treatment and training to promote independence in ADL's, mobility, safety and/or upper extremity function for ADL's. Plan of Care: ADL Retraining, Functional Mobility, UE Funct Exercise/Act Treatment Duration: Jan 10, 2021 Frequency: At least 5 of 7 days/Wk (IRF) Estimated Hrs Per Day: 1.5 hours per day Agreement: Yes Rehab Potential: Good Time/GCodes Start Time: 13:00 Stop Time: 13:30 Total Time Billed (hr/min): 30 Billed Treatment Time 1 visit-ADL 2 (30 min) PRINCE SUAZO Jan 03, 2021 13:18
--- NOTE | 2021-01-03 14:40 | Physical Therapy Daily Note ---
PT Daily Note-Current Subjective Pt. agrees to Rx, states he is interested in a lung/chest XR before DC , " I want to make sure my lungs are OK to go home" Transfers SCALE: Activities may be completed with or without assistive devices. 5-Jaevvndqsk-uvvxxlu completes the activity by him/herself with no assistance from a helper. 5-Set-up or Clean-up Assistance-helper sets up or cleans up; patient completes activity. [place] assists only prior to or following the activity. 4-Supervision or Touching Assistance-helper provides verbal cues and/or touching/steadying and/or contact guard assistance as patient completes activity. Assistance may be provided throughout the activity or intermittently. 3-Partial/Moderate Assistance-helper does LESS THAN HALF the effort. [place] lifts, holds or supports trunk or limbs, but provides less than half the effort. 2-Substantial/Maximal Assistance-helper does MORE THAN HALF the effort. [place] lifts or holds trunk or limbs and provides more than half the effort. 0-Ydqfzutez-mlyfso does ALL the effort. Patient does none of the effort to complete the activity. Or, the assistance of 2 or more helpers is required for the patient to complete the activity. If activity was not attempted, code reason: 7-Patient Refused. 9-Not Applicable-not attempted and the patient did not perform the activity before the current illness, exacerbation or injury. 10-Not Attempted due to Environmental Limitations-(lack of equipment, weather restraints, etc.). 88-Not Attempted due to Medical Conditions or Safety Concerns. Car Transfer (QC): 6 Gait Training Walking 10ft/uneven surface-QC: 5 Gait Persons Needed: 1 Gait Assistive Device: FWW gait 150 ft x 2 SBA and assist for O2 at 3 L, sats 90% Assessment Current Status: Good Progress PT Short Term Goals Short Term Goals Time Frame: Jan 03, 2021 Roll Left & Right: 6 Sit to lyin Lying to sitting on side of be: 6 Sit to stand: 4 (met) Chair/bjm-bp-ksjso transfer: 4 (met) Walk 10 feet: 4 Walk 50 feet with two turns: 4 Walk 150 feet: 4 (met) PT Correction Goals Correction Goals PT Correction Goals Time Frame: Jan 17, 2021 Roll Left & Right (QC): 6 Sit to Lying (QC): 6 Lying-Sitting on Side/Bed(QC): 6 Sit to Stand (QC): 6 Chair/Lgg-cd-Nqqyt Xfer(QC): 6 Toilet Transfer (QC): 6 Car Transfer (QC): 6 Does the Patient Walk: Yes Walk 10 feet (QC): 6 Walk 50ft with 2 Turns (QC): 6 Walk 150 ft (QC): 6 Walking 10ft on Uneven Surface: 6 1 Step (curb) (QC): 4 4 Steps (QC): 4 12 Steps (QC): 88 Picking up an Object (QC): 88 Wheel 50 feet with 2 turns (QC: 9 Wheel 150 feet: 9 PT Plan Treatment/Plan Treatment Plan: Continue Plan of Care Treatment Plan: Education, Functional Activity Jennifer, Functional Strength, Group Therapy, Gait, Safety, Therapeutic Exercise, Transfers Treatment Duration: Jan 17, 2021 Frequency: At least 5 of 7 days/Wk (IRF) Estimated Hrs Per Day: 1.5 hours per day Patient and/or Family Agrees t: Yes Safety Risks/Education Patient Education: Gait Training Time/GCodes Time In: 1330 Time Out: 1400 Total Billed Treatment Time: 30 Total Billed Treatment 1,GT20m,FA10m BRIDGER LUCAS PTA Jan 03, 2021 14:40
[2021-01-03 17:00] VITALS: BP 151/65
[2021-01-03] MEDS: TAMSULOSIN 0.4 MG (FLOMAX) CAP PO SCH (17:56)
[2021-01-03] MEDS: MELATONIN 3 MG TABLET PO SCH (20:13)
[2021-01-03] MEDS: ACETAMINOPHEN 325 MG TABLET PO SCH (20:13)
--- NOTE | 2021-01-03 21:10 | D/C HH Face to Face Order ---
D/C Face to Face Orders Reconcile Patient Problems Problems Reviewed?: Yes Instructions for Patient Via [facility], Patient Instructions/FollowUp: Dr Howe Physician to follow Patient: Madonnachiquis Discharge Diet for Home: No Restrictions Patient Problems: s/p PNA AF Patient Data-Allergies,Ht & Wt Patient Allergies: Coded Allergies: No Known Drug Allergies (Unverified , 06/15/20) Height (Feet): 5 Height (Inches): 7.00 Weight (Pounds): 140 Weight (Ounces): 0.0 Home Health Need/Face to Face Date of Face to Face: Jan 03, 2021 Clinical Findings: Generalized weakness and fatigue, Instability, Muscle weakness, Shortness of breath, Unsteady gait I have seen Pt njav-rc-hmpw: Yes Discharged To: Home Diagnosis/Conditions: s/p PNA AF Patient is Homebound due to: João fall risk due to instabilty, Muscle weaknes s, Shortness of breath/distress Homebound Status Due to the above stated illness, injury or surgical procedure (medical condition or diagnosis) and associated clinical findings, the patient is homebound because of his/her inability to leave home except with aid of a supportive device and/or person AND leaving the home requires a considerable and taxing effort or is medically contraindicated. Pt req the following assistanc: [facility] Nursing Orders Home Health Services Order: Nursing Services, Grounds Restoration Specialist-Evaluate & Treat, Physical Therapy-Evaluate & Treat Certify Stmt I certify that this patient is under my care and that I, a nurse practitioner or a physician; a fast food assistant restaurant manager working with me, had a face to face encounter that - meets the physician face to face encounter requirements with this patient as dated. MARY LAMBERT DO Jan 03, 2021 21:10
[2021-01-04] MEDS: RT-ALBUTEROL SULF 2.5 MG/3 ML PRE-MIX VIAL INH SCH ×2 (01:47→06:51)
[2021-01-04 05:13] VITALS: BP 161/70
[2021-01-04] MEDS: predniSONE 20 MG TAB PO SCH (05:49)
[2021-01-04] MEDS: BETHANECHOL 25 MG (URECHOLINE) TAB PO SCH ×2 (05:49→11:07)
[2021-01-04] MEDS: CATHETER FLUSH 10 ML SYR IV SCH (05:49)
--- NOTE | 2021-01-04 05:54 | Discharge Summary ---
Diagnosis/Chief Complaint Date of Admission Dec 27, 2020 at 09:20 Date of Discharge Discharge Date: Jan 04, 2021 Discharge Diagnosis Assessment: Critical illness myopathy Acute on chronic respiratory failure Chronic hypoxia requires O2 dependence at home GIB Acute blood loss anemia PNA CHF AF Edema Urinary retention and OAB consulted Dr Simmons 12/28/20 Plan: Monitor O2 Lasix DC catheter Monitor pain IRF protocol 12/28/20: Monitor O2 Abx to complete Dr Simmons consult Bladder meds 12/29/20: Bladder meds O2 IRF protocol 12/30/20: Improved status O2 wean Monitor closely 12/31/20: Monitor BP Monitor O2 Carotid USG tomorrow 01/01/21: Monitor BP O2 Completed abx 01/02/21: Much improved status Weaned O2 Monitor for pain 01/03/21: Monitor lung status Dr Rocha will see him as outpatient DC tomorrow (1) Acute and chronic respiratory failure with hypoxia Status: Acute (2) PNA (pneumonia) Status: Acute (3) Severe sepsis Status: Acute (4) Rectal bleeding Status: Acute (5) Wheezing Status: Acute (6) T2DM (type 2 diabetes mellitus) Status: Chronic (7) Atrial fibrillation with RVR Status: Acute (8) Dyspnea (9) CVA (cerebral vascular accident) Status: Acute (10) Severe anemia Status: Acute (11) GI bleed Status: Acute Discharge Summary Discharge Physical Examination Allergies: Coded Allergies: No Known Drug Allergies (Unverified , 06/15/20) Vitals & I&Os Vital Signs Date Time Temp Pulse Resp B/P (MAP) Pulse Ox O2 Delivery O2 Flow Rate FiO2 01/04/21 14:51 37.0 80 20 161/70 94 Nasal Cannula 2.00 General Appearance: Alert, Oriented X3, Cooperative Respiratory: Clear to Auscultation Cardiovascular: Regular Rate Neuro: Normal Gait Psych/Mental Status: Mental Status NL Hospital Course Was the Problem List Reviewed?: Yes Standard course for 8 days in IRF after moving from ICU and 4th floor for acute on chronic resp failure in chronic O2 dependent patient who had a GIB while acute requiring scopes and transfusions and Cardiology managed AF. Overall he was able to improved his status and participate in activity with PT OT with good return of ambulatory and ADL skills. HH was ordered for DC. Dr Simmons saw his patient and restarted bladder meds to help resolve urinary retention which has good results. Overall he was found to be ready for DC with close f/u with Dr Jose clarke who will check his CXR in follow up but prognosis [facility] guarded given advanced age and poor reserve and severe chronic resp failure. Labs (last 24 hrs) Laboratory Tests 12/27/20 11:45: Glucometer 180H 12/27/20 16:53: Glucometer 143H 12/27/20 21:04: Glucometer 119H 12/28/20 05:13: Glucometer 64L 12/28/20 09:52: White Blood Count 15.9H, Red Blood Count 4.21L, Hemoglobin 11.7#L, Hematocrit 37L, Mean Corpuscular Volume 89, Mean Corpuscular Hemoglobin 28, Mean Corpuscular Hemoglobin Concent 31L, Red Cell Distribution Width 16.2H, Platelet Count 383, Mean Platelet Volume 9.7, Immature Granulocyte % (Auto) 1, Neutrophils (%) (Auto) 93H, Lymphocytes (%) (Auto) 3L, Monocytes (%) (Auto) 3, Eosinophils (%) (Auto) 0, Basophils (%) (Auto) 0, Neutrophils # (Auto) 14.7H, Lymphocytes # (Auto) 0.5L, Monocytes # (Auto) 0.5, Eosinophils # (Auto) 0.0, Basophils # (Auto) 0.0, Immature Granulocyte # (Auto) 0.1, Sodium Level 133L, Potassium Level 4.4, Chloride Level 93L, Carbon Dioxide Level 28, Anion Gap 12, Blood Urea Nitrogen 34H, Creatinine 1.26, Estimat Glomerular Filtration Rate 55, BUN/Creatinine Ratio 27, Glucose Level 131H, Calcium Level 9.0, Corrected Calcium 9.4, Total Bilirubin 0.7, Aspartate Amino Transf (AST/SGOT) 44H, Alanine Aminotransferase (ALT/SGPT) 100H, Alkaline Phosphatase 87, Total Protein 7.1, Albumin 3.5 12/30/20 05:50: White Blood Count 12.5H, Red Blood Count 3.64L, Hemoglobin 10.2L, Hematocrit 32L , Mean Corpuscular Volume 87, Mean Corpuscular Hemoglobin 28, Mean Corpuscular Hemoglobin Concent 32, Red Cell Distribution Width 16.0H, Platelet Count 339, Mean Platelet Volume 10.1, Immature Granulocyte % (Auto) 1, Neutrophils (%) (Auto) 78H, Lymphocytes (%) (Auto) 10L, Monocytes (%) (Auto) 10, Eosinophils (%) (Auto) 1, Basophils (%) (Auto) 0, Neutrophils # (Auto) 9.7H, Lymphocytes # (Auto) 1.3, Monocytes # (Auto) 1.2H, Eosinophils # (Auto) 0.2, Basophils # (Auto) 0.0, Immature Granulocyte # (Auto) 0.1, Sodium Level 133L, Potassium Level 4.4, Chloride Level 95L, Carbon Dioxide Level 30, Anion Gap 8, Blood Urea Nitrogen 39H, Creatinine 1.27, Estimat Glomerular Filtration Rate 54, BUN/Creatinine Ratio 31, Glucose Level 75, Calcium Level 8.4L, Corrected Calcium 9.1, Total Bilirubin 0.5, Aspartate Amino Transf (AST/SGOT) 44H, Alanine Aminotransferase (ALT/SGPT) 101H, Alkaline Phosphatase 77, Total Protein 6.0L, Albumin 3.1L, Phosphorus Level 3.7, Magnesium Level 2.1, B-Type Natriuretic Peptide 90.4, Procalcitonin 0.15H 01/01/21 05:31: White Blood Count 13.5H, Red Blood Count 3.39L, Hemoglobin 9.3L, Hematocrit 29L, Mean Corpuscular Volume 86, Mean Corpuscular Hemoglobin 27, Mean Corpuscular Hemoglobin Concent 32, Red Cell Distribution Width 16.6H, Platelet Count 290, Mean Platelet Volume 9.9, Immature Granulocyte % (Auto) 1, Neutrophils (%) (Auto) 79H, Lymphocytes (%) (Auto) 10L, Monocytes (%) (Auto) 9, Eosinophils (%) (Auto) 2, Basophils (%) (Auto) 0, Neutrophils # (Auto) 10.6H, Lymphocytes # (Auto) 1.3, Monocytes # (Auto) 1.2H, Eosinophils # (Auto) 0.2, Basophils # (Auto) 0.0, Immature Granulocyte # (Auto) 0.1, Sodium Level 134L, Potassium Level 4.1, Chloride Level 98, Carbon Dioxide Level 25, Anion Gap 11, Blood Urea Nitrogen 42H, Creatinine 1.36H, Estimat Glomerular Filtration Rate 50, BUN/Creatinine Ratio 31, Glucose Level 73, Calcium Level 8.3L, Corrected Calcium 9.2, Total Bilirubin 0.5, Aspartate Amino Transf (AST/SGOT) 35H, Alanine Aminotransferase (ALT/SGPT) 92H, Alkaline Phosphatase 70, Total Protein 5.6L, Albumin 2.9L Pending Labs Laboratory Tests 12/27/20 11:45: Glucometer 180 12/27/20 16:53: Glucometer 143 12/27/20 21:04: Glucometer 119 12/28/20 05:13: Glucometer 64 12/28/20 09:52: White Blood Count 15.9, Red Blood Count 4.21, Hemoglobin 11.7, Hematocrit 37, Mean Corpuscular Volume 89, Mean Corpuscular Hemoglobin 28, Mean Corpuscular Hemoglobin Concent 31, Red Cell Distribution Width 16.2, Platelet Count 383, Mean Platelet Volume 9.7, Immature Granulocyte % (Auto) 1, Neutrophils (%) (Auto) 93, Lymphocytes (%) (Auto) 3, Monocytes (%) (Auto) 3, Eosinophils (%) (Auto) 0, Basophils (%) (Auto) 0, Neutrophils # (Auto) 14.7, Lymphocytes # (Auto) 0.5, Monocytes # (Auto) 0.5, Eosinophils # (Auto) 0.0, Basophils # (Auto) 0.0, Immature Granulocyte # (Auto) 0.1, Sodium Level 133, Potassium Level 4.4, Chloride Level 93, Carbon Dioxide Level 28, Anion Gap 12, Blood Urea Nitrogen 34, Creatinine 1.26, Estimat Glomerular Filtration Rate 55, BUN/Creatinine Ratio 27, Glucose Level 131, Calcium Level 9.0, Corrected Calcium 9.4, Total Bilirubin 0.7, Aspartate Amino Transf (AST/SGOT) 44, Alanine Aminotransferase (ALT/SGPT) 100, Alkaline Phosphatase 87, Total Protein 7.1, Albumin 3.5 12/30/20 05:50: White Blood Count 12.5, Red Blood Count 3.64, Hemoglobin 10.2, Hematocrit 32, Mean Corpuscular Volume 87, Mean Corpuscular Hemoglobin 28, Mean Corpuscular Hemoglobin Concent 32, Red Cell Distribution Width 16.0, Platelet Count 339, Mean Platelet Volume 10.1, Immature Granulocyte % (Auto) 1, Neutrophils (%) (Auto) 78, Lymphocytes (%) (Auto) 10, Monocytes (%) (Auto) 10, Eosinophils (%) (Auto) 1, Basophils (%) (Auto) 0, Neutrophils # (Auto) 9.7, Lymphocytes # (Auto) 1.3, Monocytes # (Auto) 1.2, Eosinophils # (Auto) 0.2, Basophils # (Auto) 0.0, Immature Granulocyte # (Auto) 0.1, Sodium Level 133, Potassium Level 4.4, Chloride Level 95, Carbon Dioxide Level 30, Anion Gap 8, Blood Urea Nitrogen 39, Creatinine 1.27, Estimat Glomerular Filtration Rate 54, BUN/Creatinine Ratio 31, Glucose Level 75, Calcium Level 8.4, Corrected Calcium 9.1, Total Bilirubin 0.5, Aspartate Amino Transf (AST/SGOT) 44, Alanine Aminotransferase (ALT/SGPT) 101, Alkaline Phosphatase 77, Total Protein 6.0, Albumin 3.1, Phosphorus Level 3.7, Magnesium Level 2.1, B-Type Natriuretic Peptide 90.4, Procalcitonin 0.15 01/01/21 05:31: White Blood Count 13.5, Red Blood Count 3.39, Hemoglobin 9.3, Hematocrit 29, Mean Corpuscular Volume 86, Mean Corpuscular Hemoglobin 27, Mean Corpuscular Hemoglobin Concent 32, Red Cell Distribution Width 16.6, Platelet Count 290, Mean Platelet Volume 9.9, Immature Granulocyte % (Auto) 1, Neutrophils (%) (A uto) 79, Lymphocytes (%) (Auto) 10, Monocytes (%) (Auto) 9, Eosinophils (%) (Auto) 2, Basophils (%) (Auto) 0, Neutrophils # (Auto) 10.6, Lymphocytes # (Auto) 1.3, Monocytes # (Auto) 1.2, Eosinophils # (Auto) 0.2, Basophils # (Auto) 0.0, Immature Granulocyte # (Auto) 0.1, Sodium Level 134, Potassium Level 4.1, Chloride Level 98, Carbon Dioxide Level 25, Anion Gap 11, Blood Urea Nitrogen 42, Creatinine 1.36, Estimat Glomerular Filtration Rate 50, BUN/Creatinine Ratio 31, Glucose Level 73, Calcium Level 8.3, Corrected Calcium 9.2, Total Bilirubin 0.5, Aspartate Amino Transf (AST/SGOT) 35, Alanine Aminotransferase (ALT/SGPT) 92, Alkaline Phosphatase 70, Total Protein 5.6, Albumin 2.9 Discharge Home Medications: Active Scripts Active Prednisone 10 Mg Tab.ds.pk 10 Mg PO DAILY Take 4 tabs(40mg)daily,decrease by 1 tab(10mg)every other day until remaining on 10mg daily until see dr rocha Pantoprazole Sodium 40 Mg Tablet. 40 Mg PO BID Reported Promethazine-Codeine Solution (Promethazine HCl/Codeine) 473 Ml Syrup 10 Ml PO Q8H PRN [place]pster Saline Nasal Gel (Sodium Chloride/Aloe Vera) 14.1 Gm Gel..gram. 1 Applic NSEACH PRN PRN [Bethanechol] 25 Tab 25 Mg PO 0700,1200 LAST FILLED 02-17-2020 #360/180 DAY SUPPLY Amiodarone HCl 200 Mg Tablet 200 Mg PO DAILY Diltiazem ER (Diltiazem HCl) 180 Mg Capsule.er 180 Mg PO DAILY Stool Softener (Docusate Sodium) 100 Mg Capsule 100 Mg PO DAILY PRN Metformin HCl ER (Metformin HCl) 500 Mg Tab.er.24h 500 Mg PO 1800 Eliquis (Apixaban) 2.5 Mg Tablet 2.5 Mg PO BID Losartan Potassium 25 Mg Tablet 25 Mg PO HS Albuterol Sulfate 2.5 Mg/3 Ml Vial.neb 2.5 Mg NEB Q6H PRN Alfuzosin HCl ER (Alfuzosin HCl) 10 Mg Tab.er.24h 10 Mg PO DAILY Atorvastatin Calcium 40 Mg Tablet 40 Mg PO HS Instructions to patient/family Please see electronic discharge instructions given to patient. Diagnosis/Problems Diagnosis/Problems (1) Acute and chronic respiratory failure with hypoxia Status: Acute (2) PNA (pneumonia) Status: Acute (3) Severe sepsis Status: Acute (4) Rectal bleeding Status: Acute (5) Wheezing Status: Acute (6) T2DM (type 2 diabetes mellitus) Status: Chronic (7) Atrial fibrillation with RVR Status: Acute (8) Dyspnea (9) CVA (cerebral vascular accident) Status: Acute (10) Severe anemia Status: Acute (11) GI bleed Status: Acute Clinical Quality Measures DVT/VTE Risk/Contraindication: Contraindications-Pharm: Other *list below* Other: MARY Cruz DO Jan 04, 2021 05:54
[2021-01-04] MEDS: guaiFENesin (MUCINEX) 600 MG TAB PO SCH (08:20)
[2021-01-04] MEDS: PANTOPRAZOLE 40 MG (PROTONIX) TAB PO SCH (08:20)
[2021-01-04] MEDS: DOCUSATE SODIUM 100 MG (COLACE) CAP PO SCH ×2 (09:13)
[2021-01-04] MEDS: polyethylene glycoL POWDER 17 GM (MIRALAX) PACK PO SCH (09:13)
[2021-01-04] MEDS: SENNA W/DOCUSATE (SENOKOT S) TABLET PO SCH (09:13)
[2021-01-04] MEDS ORDERED: PRED10TA22 PO (09:30)
[2021-01-04] MEDS ORDERED: PANT40TA52 PO (09:30)
[2021-01-04 09:58] VITALS: BP 161/70
--- NOTE | 2021-01-04 10:55 | Therapy Team Discharge Summary ---
Therapy Discharge Summary Discharge Recommendations Date of Discharge Physical Therapy Patient came to rehab with pneumonia/sepsis/respiratory failure/hypoxia. Upon evaluation patient performed bed mobility and supine <-> sit with independence, sit <-> stand and transfers CGA, car transfer CGA, ambulated 120' with a rolling walker with CGA (including 50' with at least 2 turns of 90 degrees and 10' over an uneven surface), and went up and down 1 step with a rolling walker with CGA. Patient has been performing bed mobility and transfer training, balance and endurance training, functional strengthening, stair training, gait training, and education. 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 Now, patient performs bed mobility and transfers with independence, car transfer independent, ambulates 150' with a rolling walker with setup (including 50' with at least 2 turns of 90 degrees and 10' over an uneven surface), and can go up and down 4 steps using 1 handrail with CGA. Patient is discharging from this facility today and will be discharged from PT at this time. 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 Goals Care Home Goals PT Care Home Goals Time Frame: Jan 17, 2021 Roll Left to Right (QC): 6 Sit to Lying (QC): 6 Lying-Sitting on Side/Bed(QC): 6 Sit to Stand (QC): 6 Chair/Jjb-uv-Gsami Xfer(QC): 6 Car Transfer (QC): 6 Does the Patient Walk: Yes Walk 10 feet (QC): 6 Walk 10ft-Uneven Surface(QC): 6 Walk 50ft with 2 Turns (QC): 6 Walk 150 ft (QC): 6 Wheel 50 feet with 2 turns (QC: 9 1 Step (curb) (QC): 4 4 Steps (QC): 4 12 Steps (QC): 88 Picking up an Object (QC): 88 OT Care Home Goals Care Home Goals Time Frame: Jan 10, 2021 Eating (QC): 6 (met) Oral Hygiene (QC): 6 (met) Shower/Bathe Self (QC): 5 (met) Upper Body Dressing (QC): 6 (not met) Lower Body Dressing (QC): 6 (not met) On/Off Footwear (QC): 6 (with AE met) Toileting Hygiene (QC): 6 (met) Toilet/Commode Transfer (QC): 6 Additional Goals: 1-Demonstrate ADL Tasks, 2-Verbalize Understanding, 3- ImproveStrength/Jennifer 1=Demonstrate adherence to instructed precautions during ADL tasks. 2=Patient will verbalize/demonstrate understanding of assistive devices/m odifications for ADL. 3=Patient will improve strength/tolerance for activity to enable patient to perform ADL's. ISAAK DE JESUS PT Jan 04, 2021 10:55
[2021-01-04 14:51] VITALS: BP 161/70
[2021-01-04] MEDS ORDERED: RT-ALBUTEROL SULF 2.5 MG/3 ML PRE-MIX VIAL INH SCH (15:00)
--- NOTE | 2021-01-08 10:35 | Therapy Team Discharge Summary ---
Therapy Discharge Summary Discharge Recommendations Date of Discharge Jan 04, 2021 at 12:45 Therapy D/C Recommendations: Home w/ Family Support, Occupational Therapy Home Care Occupational Therapy Pt. was seen by occupational therapy to increase overall strength and independence with daily tasks. Pt. required supervision for dressing and SBA for showering. Otherwise, met all goals of Mod I with daily tasks. Pt. discha rged home with spouse. Recommended home health OT to continue working on strengthening as well as endurance training with all tasks. Decreased Activ Tolerance, Impaired I ADL's, Impaired Self-Care Skills PT Safe Technician Goals Custodial Goals PT Safe Technician Goals Time Frame: Jan 17, 2021 Roll Left to Right (QC): 6 Sit to Lying (QC): 6 Lying-Sitting on Side/Bed(QC): 6 Sit to Stand (QC): 6 Chair/Zaf-sm-Ckopv Xfer(QC): 6 Car Transfer (QC): 6 Does the Patient Walk: Yes Walk 10 feet (QC): 6 Walk 10ft-Uneven Surface(QC): 6 Walk 50ft with 2 Turns (QC): 6 Walk 150 ft (QC): 6 Wheel 50 feet with 2 turns (QC: 9 1 Step (curb) (QC): 4 4 Steps (QC): 4 12 Steps (QC): 88 Picking up an Object (QC): 88 OT Safe Technician Goals Safe Technician Goals Time Frame: Jan 10, 2021 Eating (QC): 6 (met) Oral Hygiene (QC): 6 (met) Shower/Bathe Self (QC): 5 (met) Upper Body Dressing (QC): 6 (not met) Lower Body Dressing (QC): 6 (not met) On/Off Footwear (QC): 6 (with AE met) Toileting Hygiene (QC): 6 (met) Toilet/Commode Transfer (QC): 6 (met) Additional Goals: 1-Demonstrate ADL Tasks, 2-Verbalize Understanding, 3- ImproveStrength/Jennifer 1=Demonstrate adherence to instructed precautions during ADL tasks. 2=Patient will verbalize/demonstrate understanding of assistive devices/modifications for ADL. 3=Patient will improve strength/tolerance for activity to enable patient to perform ADL's. CLAUDIA KERNS OT Jan 08, 2021 10:35
== END 2021-01-04 12:45 | disposition home health service (06) | DRG 91 ==
PROVIDERS: ADMIT Internal Medicine; ATTEND Internal Medicine
DX: G72.81 Critical illness myopathy (principal); J96.21 Acute and chronic respiratory failure with hypoxia; J18.9 Pneumonia, unspecified organism; K29.71 Gastritis, unspecified, with bleeding; D62 Acute posthemorrhagic anemia; N17.9 Acute kidney failure, unspecified; E87.2 Acidosis; I48.0 Paroxysmal atrial fibrillation; I11.0 Hypertensive heart disease with heart failure; I69.992 Facial weakness following unspecified cerebrovascular disease; I69.934 Monoplegia of upper limb following unspecified cerebrovascular disease affecting left non-dominant side; N40.1 Benign prostatic hyperplasia with lower urinary tract symptoms; R33.8 Other retention of urine; N32.81 Overactive bladder; N31.9 Neuromuscular dysfunction of bladder, unspecified; E11.9 Type 2 diabetes mellitus without complications; J44.9 Chronic obstructive pulmonary disease, unspecified; E78.5 Hyperlipidemia, unspecified; F41.9 Anxiety disorder, unspecified; F32.9 Major depressive disorder, single episode, unspecified; I25.10 Atherosclerotic heart disease of native coronary artery without angina pectoris; K21.9 Gastro-esophageal reflux disease without esophagitis; M19.91 Primary osteoarthritis, unspecified site; I65.23 Occlusion and stenosis of bilateral carotid arteries; Z99.81 Dependence on supplemental oxygen; Z87.891 Personal history of nicotine dependence; Z87.01 Personal history of pneumonia (recurrent); Z86.718 Personal history of other venous thrombosis and embolism; Z79.01 Long term (current) use of anticoagulants; Z97.4 Presence of external hearing-aid; Z79.84 Long term (current) use of oral hypoglycemic drugs
CPT/HCPCS: 36415; 71045; 80053; 82962; 83735; 83880; 84100; 84145; 85025; 93880; 94640; 94760

== ENCOUNTER 2021-01-09 14:29 | Observation (INO) | payer MEDICARE, OTHER ==
[~2021-01-09] VITALS: Ht 197.7 cm; Wt 58.9 kg
[~2021-01-09 14:29] MED LIST changes: +PRED10TA22 PO
[2021-01-09] MEDS ORDERED: NS IV 1000 ML 1,000 ML IV SCH ×2 (15:00→19:00)
[2021-01-09 15:11] VITALS: BP_SYST 103; BP_SYST 110; BP_SYST 123; BP_DIAS 46; BP_DIAS 47; BP_DIAS 59
[2021-01-09 15:20] LABS: BASOPHILS % (AUTO) 0 % (0-10); EOSINOPHILS # (AUTO) 0.1 10^3/uL (0.0-0.3); EOSINOPHILS % (AUTO) 1 % (0-10); HEMATOCRIT 31 % (40-54); HEMOGLOBIN 9.8 g/dL (13.3-17.7); LYMPHOCYTES # (AUTO) 0.5 X 10^3 (1.0-4.0); LYMPHOCYTES % (AUTO) 5 % (12-44); MEAN CORPUSCULAR HEMOGLOBIN 28 pg (25-34); MEAN CORPUSCULAR HGB CONC 31 g/dL (32-36); MEAN CORPUSCULAR VOLUME 88 fL (80-99); MEAN PLATELET VOLUME 9.8 fL (9.0-12.2); MONOCYTES # (AUTO) 0.5 X 10^3 (0.0-1.0); MONOCYTES % (AUTO) 5 % (0-12); NEUTROPHILS # (AUTO) 8.8 X 10^3 (1.8-7.8); NEUTROPHILS % (AUTO) 89 % (42-75); PLATELET COUNT 260 10^3/uL (130-400)
[2021-01-09 15:23] LABS: BILIRUBIN,URINE NEGATIVE (NEGATIVE); CLARITY,URINE CLEAR; COLOR,URINE YELLOW; GLUCOSE, URINE (UA) NEGATIVE (NEGATIVE); KETONES,URINE NEGATIVE (NEGATIVE); LEUKOCYTE ESTERASE ,URINE TRACE (NEGATIVE); NITRITE,URINE NEGATIVE (NEGATIVE); PROTEIN,URINE NEGATIVE (NEGATIVE)
--- NOTE | 2021-01-09 15:23 | ED General ---
General Chief Complaint: Respiratory Problems Stated Complaint: LOW O2 Nursing Triage Note: PT TO RM 7 BY WHEELCHAIR WITH COMPLAINT OF SOB ON EXERTION ON DIZZINESS. WEARS 2LNC AT HOME. Nursing Sepsis Screen: No Definite Risk History of Present Illness Date Seen by Provider: Jan 09, 2021 Time Seen by Provider: 14:33 Initial Comments 85-year-old male was recently diagnosed after a 3-week admission for pneumonia and generalized weakness, he was on ARU and discharged to home with home health and PT. His PT was there today and he complained of dizziness, noted orthostatic hypotension standing (sitting 118/62, standing 92/40). PT consulted with Dr. Bradford who recommended he come here for overnight admission to have B/P monitored and medications adjusted. He takes losartan, amiodarone and diltiazem for his blood pressure and heart rate. He is on Eliquis for history of A. fib with RVR. 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 Wears O2 per NC at 2L at home. Timing/Duration: Intermittent Associated Systoms: No Chest Pain, No Cough, No Headaches, No Loss of Appetite; Malaise; No Nausea/Vomiting, No Seizure; Shortness of Air (chronic, no change, uses O2 at 2L per NC at home), Weakness Allergies and Home Medications Allergies Coded Allergies: No Known Drug Allergies (Unverified , 06/15/20) Home Medications Albuterol Sulfate 2.5 Mg/3 Ml Vial.neb, 2.5 MG NEB Q6H PRN for SHORTNESS OF BREATH, (Reported) Alfuzosin HCl 10 Mg Tab.er.24h, 10 MG PO DAILY, (Reported) Amiodarone HCl 200 Mg Tablet, 200 MG PO DAILY, (Reported) Apixaban 2.5 Mg Tablet, 2.5 MG PO BID, (Reported) Atorvastatin Calcium 40 Mg Tablet, 40 MG PO HS, (Reported) Diltiazem HCl 180 Mg Capsule.er, 180 MG PO DAILY, (Reported) Docusate Sodium 100 Mg Capsule, 100 MG PO DAILY PRN for CONSTIPATION-1ST LINE, (Reported) Losartan Potassium 25 Mg Tablet, 25 MG PO HS, (Reported) Metformin HCl 500 Mg Tab.er.24h, 500 MG PO 1800, (Reported) Pantoprazole Sodium 40 Mg Tablet.dr, 40 MG PO BID Prescribed by: MARY LAMBERT on 3/11/21 0930 Prednisone 10 Mg Tab.ds.pk, 10 MG PO DAILY Take 4 tabs(40mg)daily,decrease by 1 tab(10mg)every other day until remaining on 10mg daily until see dr mancia Prescribed by: MARY LAMBERT on 01/04/21929 Promethazine HCl/Codeine 473 Ml Syrup, 10 ML PO Q8H PRN for COUGH, (Reported) Sodium Chloride/Aloe Vera 14.1 Gm Gel..gram., 1 APPLIC NSEACH PRN PRN for DRY NOSE, (Reported) [Bethanechol] 25 TAB, 25 MG PO 0700,1200, (Reported) LAST FILLED 02-17-2020 #360/180 DAY SUPPLY Patient Home Medication List Home Medication List Reviewed: Yes Review of Systems Review of Systems Constitutional: see HPI, malaise, weakness EENTM: see HPI, no symptoms reported Respiratory: no symptoms reported, see HPI, short of breath (chronic, no change) Cardiovascular: no symptoms reported, see HPI Gastrointestinal: no symptoms reported, see HPI Genitourinary: no symptoms reported, see HPI Musculoskeletal: no symptoms reported, see HPI All Other Systems Reviewed Negative Unless Noted: Yes Past Pqulwzy-Slnzlf-Hncomq Hx Past Med/Social Hx: Reviewed Nursing Past Med/Soc Hx Patient Social History Alcohol Use: Rarely Uses Number of Drinks Today: Alcohol Beverage of Choice: Beer, Wine Smoking Status: Former Smoker Former Smoker, Quit: Jul 26, 1984 2nd Hand Smoke Exposure: Yes Recent Infectious Disease Expo: No Recent Hopitalizations: No Immunizations Up To Date Tetanus Booster (TDap): Unknown Date of Pneumonia Vaccine: Aug 03, 2018 Date of Influenza Vaccine: Aug 02, 2020 Seasonal Allergies Seasonal Allergies: Yes (RUNNY NOSE) Past Medical History Surgeries: Yes (ESPHAGAS SURG, HERNIA,R SHOULDER, BACK, CATARACTS, CTR) Orthopedic Respiratory: Yes Pneumonia Currently Using CPAP: No Currently Using BIPAP: No Cardiac: Yes (PAROXYSMAL A FIB) Atrial Fibrillation, Coronary Artery Disease, High Cholesterol, Hypertension, Valvular Heart Disease Neurological: Yes Stroke Reproductive Disorders: No Sexually Transmitted Disease: No HIV/AIDS: No Genitourinary: No Benign Prostatic Hyperpl Gastrointestinal: Yes (HX BLEEDING ULCER) Gastroesophageal Reflux, Diverticulosis, Polyps Musculoskeletal: Yes (ORTHO SURGERY) Arthritis, Chronic Back Pain Endocrine: Yes (DM TYPE II) Diabetes, Non-Insulin dep HEENT: Yes (GLASSES, DENTURES) Cataract Loss of Vision: Denies Hearing Impairment: Hard of Hearing, Bilateral Hearing Aide Cancer: No Psychosocial: No Integumentary: Yes (MILD) Eczema, Psoriasis Blood Disorders: Yes (HX ANEMIA -BLEEDING ULCER) Adverse Reaction/Blood Tranf: No (HAS HAD BLOOD WITH NO REACTION) Family Medical History FH: liver disease 19 MOTHER FH: lung cancer 19 FATHER Cancer Physical Exam Vital Signs Vital Signs - First Documented 01/09/21 14:33 Temp 36.1 Pulse 76 Resp 28 B/P (MAP) 119/69 (86) Pulse Ox 97 O2 Delivery Nasal Cannula O2 Flow Rate 3.00 Capillary Refill : Less Than 3 Seconds Height, Weight, BMI Height: 5'7.00" Weight: 140lbs. 0.0oz. [id number]; 20.00 BMI Method:Stated General Appearance: No Apparent Distress, WD/WN Eyes: Bilateral Eye Normal Inspection, Bilateral Eye PERRL, Bilateral Eye EOMI HEENT: PERRL/EOMI, TMs Normal, Normal ENT Inspection, Pharynx Normal Neck: Full Range of Motion, Normal Inspection, Non Tender, Supple Respiratory: Chest Non Tender, Lungs Clear, Normal Breath Sounds Cardiovascular: No Edema, No Murmur, Normal Peripheral Pulses, Irregularly Irregular Gastrointestinal: Normal Bowel Sounds, Non Tender, Soft; No Distended, No Guarding, No Mass, No Rebound, No Tenderness Extremity: Normal Capillary Refill, Normal Inspection, Normal Range of Motion, No Pedal Edema Neurologic/Psychiatric: Alert, Oriented x3, No Motor/Sensory Deficits, 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 Skin: Normal Color, Warm/Dry Progress/Results/Core Measures Suspected Sepsis Recent Fever Within 48 Hours: No Infection Criteria Present: None New/Unexplained Altered Menta: No Sepsis Screen: No Definite Risk SIRS Temperature: Pulse: 74 Respiratory Rate: 28 Laboratory Tests 01/09/21 15:00: White Blood Count 10.0 Blood Pressure 110 /47 Mean: 68 Laboratory Tests 01/09/21 15:00: Creatinine 0.98, INR Comment 1.2, Platelet Count 260, Total Bilirubin 0.6 Results/Orders Lab Results Laboratory Tests Test 01/09/21 15:00 01/09/21 15:12 01/09/21 15:18 Range/Units White Blood Count 10.0 4.3-11.0 10^3/uL Red Blood Count 3.54 L 4.30-5.52 10^6/uL Hemoglobin 9.8 L 13.3-17.7 g/dL Hematocrit 31 L 40-54 % Mean Corpuscular Volume 88 80-99 fL Mean Corpuscular Hemoglobin 28 25-34 pg Mean Corpuscular Hemoglobin Concent 31 L 32-36 g/dL Red Cell Distribution Width 17.4 H 10.0-14.5 % Platelet Count 260 130-400 10^3/uL Mean Platelet Volume 9.8 9.0-12.2 fL Immature Granulocyte % (Auto) 0 % Neutrophils (%) (Auto) 89 H 42-75 % Lymphocytes (%) (Auto) 5 L 12-44 % Monocytes (%) (Auto) 5 0-12 % Eosinophils (%) (Auto) 1 0-10 % Basophils (%) (Auto) 0 0-10 % Neutrophils # (Auto) 8.8 H 1.8-7.8 X 10^3 Lymphocytes # (Auto) 0.5 L 1.0-4.0 X 10^3 Monocytes # (Auto) 0.5 0.0-1.0 X 10^3 Eosinophils # (Auto) 0.1 0.0-0.3 10^3/uL Basophils # (Auto) 0.0 0.0-0.1 10^3/uL Immature Granulocyte # (Auto) 0.0 0.0-0.1 10^3/uL Neutrophils % (Manual) 88 % Lymphocytes % (Manual) 7 % Monocytes % (Manual) 5 % Poikilocytosis SLIGHT Anisocytosis SLIGHT Prothrombin Time 15.2 H 12.2-14.7 SEC INR Comment 1.2 0.8-1.4 Activated Partial Thromboplast Time 26 24-35 SEC Sodium Level 130 L 135-145 MMOL/L Potassium Level 4.5 3.6-5.0 MMOL/L Chloride Level 98 98-107 MMOL/L Carbon Dioxide Level 22 21-32 MMOL/L Anion Gap 10 5-14 MMOL/L Blood Urea Nitrogen 27 H 7-18 MG/DL Creatinine 0.98 0.60-1.30 MG/DL Estimat Glomerular Filtration Rate > 60 BUN/Creatinine Ratio 28 Glucose Level 106 H 70-105 MG/DL Calcium Level 8.2 L 8.5-10.1 MG/DL Corrected Calcium 8.8 8.5-10.1 MG/DL Total Bilirubin 0.6 0.1-1.0 MG/DL Aspartate Amino Transf (AST/SGOT) 48 H 5-34 U/L Alanine Aminotransferase (ALT/SGPT) 110 H 0-55 U/L Alkaline Phosphatase 75 40-136 U/L Total Protein 5.9 L 6.4-8.2 GM/DL Albumin 3.2 3.2-4.5 GM/DL Troponin I < 0.028 <0.028 NG/ML B-Type Natriuretic Peptide 165.2 H <100.0 PG/ML Urine Color YELLOW Urine Clarity CLEAR Urine pH 7.0 5-9 Urine Specific [place] 1.015 L 1.016-1.022 Urine Protein NEGATIVE NEGATIVE Urine Glucose (UA) NEGATIVE NEGATIVE Urine Ketones NEGATIVE NEGATIVE Urine Nitrite NEGATIVE NEGATIVE Urine Bilirubin NEGATIVE NEGATIVE Urine Urobilinogen 1.0 < = 1.0 MG/DL Urine Leukocyte Esterase TRACE H NEGATIVE Urine RBC (Auto) NEGATIVE NEGATIVE Urine RBC NONE /HPF Urine WBC 2-5 /HPF Urine Squamous Epithelial Cells 0-2 /HPF Urine Crystals NONE /LPF Urine Bacteria TRACE /HPF Urine Casts NONE /LPF Urine Mucus NEGATIVE /LPF Urine Yeast FEW H /HPF Urine Culture Indicated YES My Orders Orders - NICOLE LAND Cbc With Automated Diff (01/09/21 14:48) Comprehensive Metabolic Panel (01/09/21 14:48) Protime With Inr (01/09/21 14:48) Partial Thromboplastin Time (01/09/21 14:48) Ua Culture If Indicated (01/09/21 14:48) Ed Iv/Invasive Line Start (01/09/21 14:48) Ns Iv 1000 Ml (Sodium Chloride 0.9%) (01/09/21 15:00) Ekg Tracing (01/09/21 14:54) Manual Differential (01/09/21 15:00) BNP (01/09/21 15:28) Troponin I (01/09/21 15:28) Urine Culture (01/09/21 15:18) Chest 1 View, Ap/Pa Only (01/09/21 16:06) Vital Signs/I&O 01/09/21 01/09/21 14:33 15:11 Temp 36.1 Pulse 76 62 65 74 Resp 28 B/P (MAP) 119/69 (86) 123/59 (80) 103/46 (65) 110/47 (68) Pulse Ox 97 O2 Delivery Nasal Cannula O2 Flow Rate 3.00 Capillary Refill : Less Than 3 Seconds Blood Pressure Mean: 68 Progress Note : Time: 14:35 Progress Note Patient seen and evaluated will obtain labs, normal saline 1 L per IV, EKG and chest x-ray. 1500 blood pressure lying was 123/59 with a heart rate of 80, sitting 103/46, 65, standing 110/47. 1545 no complaints. B/P lying is 134/65, HR SR 80s. No dizziness when he sat up. 1615 Dr. Hobson in ED, consult with patient, agreed with plan to admit for observation. Spoke to Dr. Nieves, agreed with admission. 1700 patient has remained stable, no changes in B/P but he has been lying down. Denies dizziness. ECG Initial ECG Impression Date: Jan 09, 2021 Initial ECG Impression Time: 15:09 Initial ECG Rate: 63 Initial ECG Rhythm: Normal Sinus Initial ECG Intervals: Normal Initial ECG Intervals MA 58, QRSD 86, QT 426, QTc 437. Rover P 54, QRS 38, T 35. Initial ECG Impression: Atrial Fibrillation w/RVR Initial ECG Comparisson: Unchanged Diagnostic Imaging Diagonstic Imaging: Xray Plain Films/CT/US/NM/MRI: chest Comments NAME: HARSHIL RHODES [facility] REC#: [id number] PT STATUS: REG ER : 1935 PHYSICIAN: NICOLE LAND ADMIT DATE: 01/09/21/ER Draft Date of Exam:01/09/21 CHEST 1 VIEW, AP/PA ONLY INDICATION: COPD COMPARISON: 01/01/2021 TECHNIQUE: Single frontal radiograph of the chest dated 01/09/2021. FINDINGS: The cardiac silhouette is stable. Pulmonary vasculature is obscured. Background emphysematous changes are again identified. Extensive mixed interstitial and airspace opacities are again identified, greatest within the mid and lower lungs. This appears slightly worsened since the prior examination. No significant pleural effusion. No pneumothorax. No acute osseous abnormality. IMPRESSION: Slightly worsening extensive bilateral pulmonary infiltrates concerning for an atypical infectious etiology versus edema. Background chronic obstructive pulmonary disease. Dictated on workstation # [id number] Dict: 01/09/21 1644 Trans: 01/09/21 1649 [facility] [id number] Interpreted by: MAXINE BOWMAN MD Electronically signed by: Reviewed: Reviewed by Me Departure Impression Primary Impression: Orthostatic hypotension Additional Impression: Atrial fibrillation with RVR Disposition: ADMITTED INPATIENT Condition: Stable Admissions Decision to Admit Reason: Admit from ER (General) Decision to Admit/Date: Jan 09, 2021 Time/Decision to Admit Time: 15:30 Departure-Patient Inst. Referrals: ALBARO BRADFORD DO (PCP/Family) Primary Care Physician Copy Copies To 1: ALBARO BRADFORD AMY ARNP Jan 09, 2021 15:23
[2021-01-09 15:37] LABS: ALANINE AMINOTRANSFERASE 110 U/L (0-55); ALBUMIN 3.2 GM/DL (3.2-4.5); ALKALINE PHOSPHATASE 75 U/L (40-136); BILIRUBIN,TOTAL 0.6 MG/DL (0.1-1.0); BUN/CREATININE RATIO 28; CALCIUM 8.2 MG/DL (8.5-10.1); CARBON DIOXIDE 22 MMOL/L (21-32); CHLORIDE 98 MMOL/L (98-107); CREATININE SERUM 0.98 MG/DL (0.60-1.30); GFR ESTIMATED > 60; GLUCOSE 106 MG/DL (70-105); POTASSIUM 4.5 MMOL/L (3.6-5.0); SODIUM 130 MMOL/L (135-145); TOTAL PROTEIN 5.9 GM/DL (6.4-8.2)
[2021-01-09 15:42] LABS: INR 1.2 (0.8-1.4); PROTHROMBIN TIME PATIENT 15.2 SEC (12.2-14.7)
[2021-01-09 15:58] LABS: BACTERIA,URINE TRACE /HPF; SQUAMOUS EPITHELIAL CELL,UR 0-2 /HPF; YEAST,URINE FEW /HPF
[2021-01-09 16:08] LABS: LYMPHOCYTES % (MANUAL) 7 %; MONOCYTES % (MANUAL) 5 %; NEUTROPHILS % (MANUAL) 88 %
[2021-01-09 16:09] LABS: ANISOCYTOSIS SLIGHT; POIKILOCYTOSIS SLIGHT
--- NOTE | 2021-01-09 16:50 | Diagnostic Imaging Report ---
INDICATION: COPD COMPARISON: 01/01/2021 TECHNIQUE: Single frontal radiograph of the chest dated 01/09/2021. FINDINGS: The cardiac silhouette is stable. Pulmonary vasculature is obscured. Background emphysematous changes are again identified. Extensive mixed interstitial and airspace opacities are again identified, greatest within the mid and lower lungs. This appears slightly worsened since the prior examination. No significant pleural effusion. No pneumothorax. No acute osseous abnormality. IMPRESSION: Slightly worsening extensive bilateral pulmonary infiltrates concerning for an atypical infectious etiology versus edema. Background chronic obstructive pulmonary disease. Dictated by: Dictated on workstation # [id number]
--- NOTE | 2021-01-09 17:42 | Consultation-Cardiology ---
HPI-Cardiology Cardiology Consultation Date of Consultation 01/09/21 Date of Admission Time Seen by Provider: 16:00 Indication: orthostatic dizziness HPI 85 years old gentleman was discharged from the hospital recently after prolonged hospitalization for generalized weakness and debility, was hospitalized for pneumonia and respiratory failure, complicated by GI bleed. A few days after his discharge he started having increasing weakness and fatigue, orthostatic dizziness he contacted Dr. Howe and he was sent to the emergency room for evaluation. Home Medications & Allergies Allergies: Coded Allergies: No Known Drug Allergies (Unverified , 06/15/20) Home Medication List Reviewed: Yes [id number]-[id number] Hx Patient Social History Marital Status: Employed/Student: retired Recreational Drug Use: No Smoking Status: Former Smoker Former smoker/When Quit: May 01, 1984 2nd Hand Smoke Exposure: Yes Recent Hopitalizations: No Immunizations Up To Date Tetanus Booster (TDap): Unknown Date of Pneumonia Vaccine: Aug 03, 2018 Date of Influenza Vaccine: Aug 02, 2020 Past Medical History Discussed below Family Medical History Significant Family History: Cancer Family History: FH: liver disease 19 MOTHER FH: lung cancer 19 FATHER Review of Systems-General Review of Systems Constitutional: see HPI, dizziness, malaise, weakness EENTM: see HPI, no symptoms reported Respiratory: no symptoms reported, see HPI, short of breath (chronic, no change) Cardiovascular: no symptoms reported, see HPI Gastrointestinal: no symptoms reported, see HPI Genitourinary: no symptoms reported, see HPI Musculoskeletal: no symptoms reported, see HPI Skin: see HPI Psychiatric/Neurological: See HPI All Other Systems Reviewed Negative Unless Noted: Yes Reviewed Test Results Reviewed Test Results Lab Laboratory Tests Test 01/09/21 15:00 01/09/21 15:12 01/09/21 15:18 Range/Units White Blood Count 10.0 4.3-11.0 10^3/uL Red Blood Count 3.54 L 4.30-5.52 10^6/uL Hemoglobin 9.8 L 13.3-17.7 g/dL Hematocrit 31 L 40-54 % Mean Corpuscular Volume 88 80-99 fL Mean Corpuscular Hemoglobin 28 25-34 pg Mean Corpuscular Hemoglobin Concent 31 L 32-36 g/dL Red Cell Distribution Width 17.4 H 10.0-14.5 % Platelet Count 260 130-400 10^3/uL Mean Platelet Volume 9.8 9.0-12.2 fL Immature Granulocyte % (Auto) 0 % Neutrophils (%) (Auto) 89 H 42-75 % Lymphocytes (%) (Auto) 5 L 12-44 % Monocytes (%) (Auto) 5 0-12 % Eosinophils (%) (Auto) 1 0-10 % Basophils (%) (Auto) 0 0-10 % Neutrophils # (Auto) 8.8 H 1.8-7.8 X 10^3 Lymphocytes # (Auto) 0.5 L 1.0-4.0 X 10^3 Monocytes # (Auto) 0.5 0.0-1.0 X 10^3 Eosinophils # (Auto) 0.1 0.0-0.3 10^3/uL Basophils # (Auto) 0.0 0.0-0.1 10^3/uL Immature Granulocyte # (Auto) 0.0 0.0-0.1 10^3/uL Neutrophils % (Manual) 88 % Lymphocytes % (Manual) 7 % Monocytes % (Manual) 5 % Poikilocytosis SLIGHT Anisocytosis SLIGHT Prothrombin Time 15.2 H 12.2-14.7 SEC INR Comment 1.2 0.8-1.4 Activated Partial Thromboplast Time 26 24-35 SEC Sodium Level 130 L 135-145 MMOL/L Potassium Level 4.5 3.6-5.0 MMOL/L Chloride Level 98 98-107 MMOL/L Carbon Dioxide Level 22 21-32 MMOL/L Anion Gap 10 5-14 MMOL/L Blood Urea Nitrogen 27 H 7-18 MG/DL Creatinine 0.98 0.60-1.30 MG/DL Estimat Glomerular Filtration Rate > 60 BUN/Creatinine Ratio 28 Glucose Level 106 H 70-105 MG/DL Calcium Level 8.2 L 8.5-10.1 MG/DL Corrected Calcium 8.8 8.5-10.1 MG/DL Total Bilirubin 0.6 0.1-1.0 MG/DL Aspartate Amino Transf (AST/SGOT) 48 H 5-34 U/L Alanine Aminotransferase (ALT/SGPT) 110 H 0-55 U/L Alkaline Phosphatase 75 40-136 U/L Total Protein 5.9 L 6.4-8.2 GM/DL Albumin 3.2 3.2-4.5 GM/DL Troponin I < 0.028 <0.028 NG/ML B-Type Natriuretic Peptide 165.2 H <100.0 PG/ML Urine Color YELLOW Urine Clarity CLEAR Urine pH 7.0 5-9 Urine Specific [place] 1.015 L 1.016-1.022 Urine Protein NEGATIVE NEGATIVE Urine Glucose (UA) NEGATIVE NEGATIVE Urine Ketones NEGATIVE NEGATIVE Urine Nitrite NEGATIVE NEGATIVE Urine Bilirubin NEGATIVE NEGATIVE Urine Urobilinogen 1.0 < = 1.0 MG/DL Urine Leukocyte Esterase TRACE H NEGATIVE Urine RBC (Auto) NEGATIVE NEGATIVE Urine RBC NONE /HPF Urine WBC 2-5 /HPF Urine Squamous Epithelial Cells 0-2 /HPF Urine Crystals NONE /LPF Urine Bacteria TRACE /HPF Urine Casts NONE /LPF Urine Mucus NEGATIVE /LPF Urine Yeast FEW H /HPF Urine Culture Indicated YES Physical Exam Physical Exam Vital Signs Vital Signs - First Documented 01/09/21 14:33 Temp 36.1 Pulse 76 Resp 28 B/P (MAP) 119/69 (86) Pulse Ox 97 O2 Delivery Nasal Cannula O2 Flow Rate 3.00 Capillary Refill : Less Than 3 Seconds Height, Weight, BMI Height: 5'7.00" Weight: 140lbs. 0.0oz. 63.784041gq; 20.00 BMI Method:Stated General Appearance: No Apparent Distress, WD/WN Eyes: Bilateral Eye Normal Inspection, Bilateral Eye PERRL, Bilateral Eye EOMI HEENT: PERRL/EOMI, TMs Normal, Normal ENT Inspection, Pharynx Normal Neck: Full Range of Motion, Normal Inspection, Non Tender, Supple Respiratory: Chest Non Tender, Lungs Clear, Normal Breath Sounds Cardiovascular: No Edema, No Murmur, Normal Peripheral Pulses, Irregularly Irregular Gastrointestinal: Normal Bowel Sounds, Non Tender, Soft; No Distended, No Guarding, No Mass, No Rebound, No Tenderness Extremity: Normal Capillary Refill, Normal Inspection, Normal Range of Motion, No Pedal Edema Neurologic/Psychiatric: Alert, Oriented x3, No Motor/Sensory Deficits, 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 Skin: Normal Color, Warm/Dry A/P-Cardiology Admission Diagnosis Orthostatic dizziness Paroxysmal atrial fibrillation Hypertension Hyperlipidemia Assessment/Plan Orthostatic dizziness, debility and generalized fatigue, mild hypovolemia. Receiving IV fluid, continue to monitor Status post prolonged hospitalization for respiratory failure, pneumonia, debility and anemia. Better at this time. 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 Continue to monitor [id number] score of 6, yearly risk of stroke without oral anticoagulation is 9.8 percent, maintained on Eliquis starting on Lovenox while in the hospital History of CVA with left facial drooping, left arm weakness. 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 Patient had initial workup at hospital in [place]. MRI of the head showed subacute infarct, patient was on Eliquis History of syncope, patient had tilt table test which revealed severe dizziness and hypotension back in February 2013. Reports improvement, no further episodes of syncope after increasing salt and fluid intake. Hypertension, labile blood pressure, orthostatic dizziness, received IV fluid, monitor blood pressure Hyperlipidemia, monitor lipids Diabetes mellitus, followed and managed by Dr. Howe, seen during the hospitalization with Dr. Bedoya Bilateral moderate carotid stenosis, 40-59 percent per most recent carotid duplex done December 2019, continue to monitor. Dysphagia, Zenker diverticulum, status post Zenker diverticulum surgery done by Dr. Estrada. CRISS FOSTER MD Jan 09, 2021 17:42
[2021-01-09] MEDS ORDERED: NS IV 1000 ML 1,000 ML ONE (18:26)
[2021-01-09 18:33] VITALS: BP_SYST 123; BP_SYST 140; BP_SYST 153; BP_DIAS 56; BP_DIAS 65; BP_DIAS 68
[2021-01-09 18:35] VITALS: BP_SYST 123; BP_SYST 140; BP_SYST 153; BP_DIAS 56; BP_DIAS 65; BP_DIAS 68
[2021-01-09] MEDS ORDERED: ONDANSETRON 4 MG/2 ML (SDV) Z0FRAN IV PRN (19:00)
[2021-01-09] MEDS ORDERED: CATHETER FLUSH 10 ML SYR IV PRN (19:00)
[2021-01-09] MEDS ORDERED: ACETAMINOPHEN 325 MG TABLET PO PRN (19:00)
[2021-01-09 19:10] VITALS: BP 123/56
[2021-01-09 23:59] VITALS: BP 146/65
[2021-01-10] VITALS: BP_SYST 132; BP_SYST 146; BP_SYST 151; BP_DIAS 63; BP_DIAS 65; BP_DIAS 67
[2021-01-10 03:31] VITALS: BP 163/72
[2021-01-10 06:02] LABS: BASOPHILS % (AUTO) 0 % (0-10); EOSINOPHILS # (AUTO) 0.1 10^3/uL (0.0-0.3); EOSINOPHILS % (AUTO) 1 % (0-10); HEMATOCRIT 27 % (40-54); HEMOGLOBIN 8.7 g/dL (13.3-17.7); LYMPHOCYTES % (AUTO) 12 % (12-44); MEAN CORPUSCULAR HEMOGLOBIN 28 pg (25-34); MEAN CORPUSCULAR HGB CONC 32 g/dL (32-36); MEAN CORPUSCULAR VOLUME 87 fL (80-99); MEAN PLATELET VOLUME 9.8 fL (9.0-12.2); MONOCYTES # (AUTO) 0.6 10^3/uL (0.0-1.0); MONOCYTES % (AUTO) 7 % (0-12); NEUTROPHILS # (AUTO) 6.1 10^3/uL (1.8-7.8); NEUTROPHILS % (AUTO) 79 % (42-75); PLATELET COUNT 212 10^3/uL (130-400); WHITE BLOOD COUNT 7.8 10^3/uL (4.3-11.0)
[2021-01-10 06:26] LABS: ALANINE AMINOTRANSFERASE 99 U/L (0-55); ALBUMIN 2.6 GM/DL (3.2-4.5); ALKALINE PHOSPHATASE 63 U/L (40-136); BILIRUBIN,TOTAL 0.6 MG/DL (0.1-1.0); BUN/CREATININE RATIO 26; CALCIUM 7.6 MG/DL (8.5-10.1); CARBON DIOXIDE 19 MMOL/L (21-32); CHLORIDE 104 MMOL/L (98-107); CREATININE SERUM 0.78 MG/DL (0.60-1.30); GFR ESTIMATED > 60; POTASSIUM 4.4 MMOL/L (3.6-5.0); SODIUM 132 MMOL/L (135-145); TOTAL PROTEIN 4.9 GM/DL (6.4-8.2)
[2021-01-10 06:34] LABS: GLUCOSE 68 MG/DL (70-105)
[2021-01-10 08:00] VITALS: BP 158/68
--- NOTE | 2021-01-10 09:40 | Progress Note - Cardiology ---
Cardiology SOAP Progress Note Subjective: Gen malaise and fatigue present No cp or palp or syncope or shortness of breath No n/v/d No focal weakness No dysuria Objective: I&O/Vital Signs 01/09/21 01/09/21 01/10/21 01/10/21 21:37 23:59 00:00 03:31 Temp 36.8 36.4 Pulse 66 76 67 Resp 22 20 B/P (MAP) 146/65 (92) 151/67 (95) 163/72 (102) 146/65 (92) 132/63 (86) Pulse Ox 93 93 94 O2 Delivery Nasal Cannula Nasal Cannula Nasal Cannula O2 Flow Rate 3.00 5.00 5.00 01/10/21 01/10/21 08:00 09:04 Temp 36.8 Pulse 76 Resp 22 B/P (MAP) 158/68 (98) Pulse Ox 96 94 O2 Delivery Nasal Cannula Nasal Cannula O2 Flow Rate 5.00 3.00 01/10/21 00:00 Intake Total 1195 ml Output Total 350 ml Balance 845 ml Weight (Pounds): 140 Weight (Ounces): 0.0 Weight (Calculated Kilograms): [id number] Constitutional: AAO x 3, well-developed, other (thin-appearing) Respiratory: No accessory muscle use; other (good bilateral air entry) Cardiovascular: regular rate-rhythm, S1 and S2, systolic murmur (faint KEIKO at card base) Gastrointestional: No tender; soft; No guarding, No rebound; audible bowel sounds Extremities: No clubbing, No cyanosis, No significant edema Neurologic/Psychiatric: oriented x 3, other (moves all limbs equally) Skin: warm/dry; No cool, No rash on exposed areas, No ulcerations on exposed a reas Results/Procedures: Labs Laboratory Tests 01/09/21 15:00: White Blood Count 10.0, Red Blood Count 3.54L, Hemoglobin 9.8L, Hematocrit 31L, Mean Corpuscular Volume 88, Mean Corpuscular Hemoglobin 28, Mean Corpuscular Hemoglobin Concent 31L, Red Cell Distribution Width 17.4H, Platelet Count 260, Mean Platelet Volume 9.8, Immature Granulocyte % (Auto) 0, Neutrophils (%) (Auto) 89H, Lymphocytes (%) (Auto) 5L, Monocytes (%) (Auto) 5, Eosinophils (%) (Auto) 1, Basophils (%) (Auto) 0, Neutrophils # (Auto) 8.8H, Lymphocytes # (Auto) 0.5L, Monocytes # (Auto) 0.5, Eosinophils # (Auto) 0.1, Basophils # (Auto) 0.0, Immature Granulocyte # (Auto) 0.0, Neutrophils % (Manual) 88, Lymphocytes % (Manual) 7, Monocytes % (Manual) 5, Poikilocytosis SLIGHT, Anisocytosis SLIGHT, Prothrombin Time 15.2H, INR Comment 1.2, Activated Partial Thromboplast Time 26, Sodium Level 130L, Potassium Level 4.5, Chloride Level 98, Carbon Dioxide Level 22, Anion Gap 10, Blood Urea Nitrogen 27H, Creatinine 0.98, Estimat Glomerular Filtration Rate > 60, BUN/Creatinine Ratio 28, Glucose Level 106H, Calcium Level 8.2L, Corrected Calcium 8.8, Total Bilirubin 0.6, Aspartate Amino Transf (AST/SGOT) 48H, Alanine Aminotransferase (ALT/SGPT) 110H, Alkaline Phosphatase 75, Total Protein 5.9L, Albumin 3.2 01/09/21 15:12: Troponin I < 0.028, B-Type Natriuretic Peptide 165.2H 01/09/21 15:18: Urine Color YELLOW, Urine Clarity CLEAR, Urine pH 7.0, Urine Specific [place] 1.015L, Urine Protein NEGATIVE, Urine Glucose (UA) NEGATIVE, Urine Ketones NEGATIVE, Urine Nitrite NEGATIVE, Urine Bilirubin NEGATIVE, Urine Urobilinogen 1.0, Urine Leukocyte Esterase TRACEH, Urine RBC (Auto) NEGATIVE, Urine RBC NONE, Urine WBC 2-5, Urine Squamous Epithelial Cells 0-2, Urine Crystals NONE, Urine Bacteria TRACE, Urine Casts NONE, Urine Mucus NEGATIVE, Urine Yeast FEWH, Urine Culture Indicated YES 01/10/21 05:18: White Blood Count 7.8, Red Blood Count 3.12L, Hemoglobin 8.7L, Hematocrit 27L, Mean Corpuscular Volume 87, Mean Corpuscular Hemoglobin 28, Mean Corpuscular Hemoglobin Concent 32, Red Cell Distribution Width 17.6H, Platelet Count 212, Mean Platelet Volume 9.8, Immature Granulocyte % (Auto) 0, Neutrophils (%) (Auto) 79H, Lymphocytes (%) (Auto) 12, Monocytes (%) (Auto) 7, Eosinophils (%) (Auto) 1, Basophils (%) (Auto) 0, Neutrophils # (Auto) 6.1, Lymphocytes # (Auto) 1.0, Monocytes # (Auto) 0.6, Eosinophils # (Auto) 0.1, Basophils # (Auto) 0.0, Immature Granulocyte # (Auto) 0.0, Sodium Level 132L, Potassium Level 4.4, Chloride Level 104, Carbon Dioxide Level 19L, Anion Gap 9, Blood Urea Nitrogen 20H, Creatinine 0.78, Estimat Glomerular Filtration Rate > 60, BUN/Creatinine Ratio 26, Glucose Level 68L, Calcium Level 7.6L, Corrected Calcium 8.7, Total Bilirubin 0.6, Aspartate Amino Transf (AST/SGOT) 46H, Alanine Aminotransferase (ALT/SGPT) 99H, Alkaline Phosphatase 63, Total Protein 4.9L, Albumin 2.6L A/P: Assessment: Gen malaise of undetermined etiology, probably related to recent illness (see below) and anemia Status post prolonged hospitalization in December 2020 for respiratory failure, pneumonia, debility and anemia History of GI bleed and hospitalized in October 2017, 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 Patient had initial workup at hospital in [place]. MRI of the head showed subacute infarct, patient was on Eliquis History of syncope, patient had tilt table test which revealed severe dizziness and hypotension back in February 2013 H/o labile blood pressure Hyperlipidemia Diabetes mellitus, followed and managed by Dr. 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 Estrada. Plan: * We recommend evaluation for and treatment of anemia * Continue hydration * Monitor labs * Continue previous cardiac regimen, including Eliquis, if ok with the primary care team JAY LLOYD MD [facility] Jan 10, 2021 09:40
--- NOTE | 2021-01-10 10:05 | Physical Therapy Evaluation ---
PT Evaluation-General Medical Diagnosis Admission Date Jan 09, 2021 at 16:15 Medical Diagnosis: orhtostatic hypotension Onset Date: Jan 09, 2021 Therapy Diagnosis Therapy Diagnosis: impaired mobility, strength, endurance Height/Weight Height (Feet): 5 Height (Inches): 7.00 Weight (Pounds): 140 Weight (Ounces): 0.0 Precautions Precautions/Isolations: Fall Prevention, Standard Precautions Referral Physician: Lizbeth Reason for Referral: Evaluation/Treatment Medical History Pertinent Medical History: Atrial Fib, Arthritis, CAD, COPD, DM, GERD, HTN Additional Medical History Past Medical History Surgeries: Yes (ESPHAGAS SURG, HERNIA,R SHOULDER, BACK, CATARACTS, CTR) Orthopedic Respiratory: Yes Pneumonia Currently Using CPAP: No Currently Using BIPAP: No Cardiac: Yes (PAROXYSMAL A FIB) Atrial Fibrillation, Coronary Artery Disease, High Cholesterol, Hypertension, Valvular Heart Disease Neurological: Yes Stroke Reproductive Disorders: No Sexually Transmitted Disease: No HIV/AIDS: No Genitourinary: No Benign Prostatic Hyperpl Gastrointestinal: Yes (HX BLEEDING ULCER) Gastroesophageal Reflux, Diverticulosis, Polyps Musculoskeletal: Yes (ORTHO SURGERY) Arthritis, Chronic Back Pain Endocrine: Yes (DM TYPE II) Diabetes, Non-Insulin dep HEENT: Yes (GLASSES, DENTURES) Cataract Loss of Vision: Denies Hearing Impairment: Hard of Hearing, Bilateral Hearing Aide Cancer: No Psychosocial: No Integumentary: Yes (MILD) Eczema, Psoriasis Reviewed History: Yes Social History Home: Single Level Current Living Status: Spouse Entry Into Home: Stairs With Railing PT Steps Into Home: 3 Prior Prior Level of Function SCALE: Activities may be completed with or without assistive devices. 1-Kuvweseazs-asfyrnt completes the activity by him/herself with no assistance from a helper. 5-Set-up or Clean-up Assistance-helper sets up or cleans up; patient completes activity. [place] assists only prior to or following the activity. 4-Supervision or Touching Assistance-helper provides verbal cues and/or touching/steadying and/or contact guard assistance as patient completes activity. Assistance may be provided throughout the activity or intermittently. 3-Partial/Moderate Assistance-helper does LESS THAN HALF the effort. [place] lifts, holds or supports trunk or limbs, but provides less than half the effort. 2-Substantial/Maximal Assistance-helper does MORE THAN HALF the effort. [place] lifts or holds trunk or limbs and provides more than half the effort. 6-Eshshdbze-mcnpae does ALL the effort. Patient does none of the effort to complete the activity. Or, the assistance of 2 or more helpers is required for the patient to complete the activity. If activity was not attempted, code reason: 7-Patient Refused. 9-Not Applicable-not attempted and the patient did not perform the activity before the current illness, exacerbation or injury. 10-Not Attempted due to Environmental Limitations-(lack of equipment, weather restraints, etc.). 88-Not Attempted due to Medical Conditions or Safety Concerns. Bed Mobility: 6 Transfers (B,C,W/C): 6 Gait: 6 Stairs: 6 Indoor Mobility (Ambulation): Independent Stairs: Independent Prior Devices Use: Walker PT Evaluation-Current Subjective Patient in bed pre tx, agrees to PT, has no complaints of pain. Pt/Family Goals to be independent at home Objective Patient Orientation: Person, Place, Situation Attachments: Oxygen, IV ROM/Strength ROM Lower Extremities WNL Strength Lower Extremities LLE (hip flexin 3+/5, knee flexion 4/5, knee extension 4/5, dorsilfexion 4/5), RLE (hip flexin 3+/5, knee flexion 4/5, knee extension 4/5, dorsilfexion 4/5) Sensory Vision: Wears Glasses Hearing: Hearing Aid/Aides Sensation Right Lower Extremit: Intact Sensation Left Lower Extremity: Intact Transfers Roll Left to Right (QC): 6 Lying to Sitting/Side of Bed(Q: 6 Sit to Stand (QC): 4 Chair/Nna-ir-Wflxi Xfer(QC): 4 CGA for sit to stand, patient sits on the side of the bed and O2 goes into upper 80's, recovers quickly with purse lip breathing Gait Does the Patient Walk?: Yes Mode of Locomotion: Walk Anticipated Mode of Locomotion: Walk Walk 10 feet (QC): 4 Walk 50 ft with 2 Turns(QC): 4 Distance: 100' Gait Assistive Device: FWW Comments/Gait Description Patient ambulates slow but steady, after sitting down patient's O2 is 80%, slower recovery with purse lip breathing, takes about 2 min to get back up to 90% Balance Sitting Static: Normal Sitting Dynamic: Normal Standing Static: Good Standing Dynamic: Good Treatment BLE seated exercises x20 (AP, LAQ) Assessment/Needs Patient in recliner post tx with nurse call, phone, tray, all needs met. Patient has impaired mobility, strength, endurance. Patient's O2 drops with activity, CGA with mobility Rehab Potential: Fair PT Rougher Machine Operator Goals Rougher Machine Operator Goals PT Rougher Machine Operator Goals Time Frame: Jan 17, 2021 Roll Left & Right (QC): 6 Sit to Lying (QC): 6 Lying-Sitting on Side/Bed(QC): 6 Sit to Stand (QC): 6 Chair/Kpb-gp-Ebvlc Xfer(QC): 6 Walk 10 feet (QC): 4 Walk 50ft with 2 Turns (QC): 4 Walk 150 ft (QC): 4 PT Plan Problem List Problem List: Activity Tolerance, Functional Strength, Safety, Balance, Gait, Transfer, ROM Treatment/Plan Treatment Plan: Continue Plan of Care Treatment Plan: Education, Functional Activity Jennifer, Functional Strength, Gait, Safety, Therapeutic Exercise, Transfers Treatment Duration: Jan 17, 2021 Frequency: 6 times per week Estimated Hrs Per Day: .25 hour per day Patient and/or Family Agrees t: Yes Safety Risks/Education Patient Education: Gait Training, Transfer Techniques, Correct Positioning, Safety Issues Teaching Recipient: Patient Teaching Methods: Demonstration, Discussion Response to Teaching: Reinforcement Needed Discharge Recommendations Plan Patient will perform bed mobility and transfer training, balance and endurance training, functional strengthening, stair training, gait training, and education, to improve functional mobility and independence at home. Therapy Discharge Recommendati: Scheduled Assistance, Home & Family, Post Acute PT Time/GCodes Time In: 925 Time Out: 943 Total Billed Treatment Time: 18 Total Billed Treatment 1 visit ISAAK PINA PT Jan 10, 2021 10:05
--- NOTE | 2021-01-10 11:11 | Occupational Therapy Eval ---
OT Evaluation-General/PLF Medical Diagnosis Admission Date Jan 09, 2021 at 16:15 Medical Diagnosis: orhtostatic hypotension; PNA Onset Date: Jan 09, 2021 Therapy Diagnosis Therapy Diagnosis: Decreased ADL status Height/Weight Height (Feet): 5 Height (Inches): 7.00 Weight (Pounds): 140 Weight (Ounces): 0.0 Precautions Precautions/Isolations: Fall Prevention, Standard Precautions Weight Bear Status Weight Bearing Restriction: Weight Bearing/Tolerated Referral Physician: Lizbeht Referral Reason: Activity Tolerance, Self Care, Evaluation/Treatment, Strengthening/ROM Medical History Pertinent Medical History: Atrial Fib, Arthritis, CAD, COPD, DM, GERD, HTN Current History Pt d/c'd from ARU with PT. Pt becomes SOB/ dizzy with 2L NC donned in home. Admits to with PNA and general weakness 01/09. Reviewed History: Yes Social History Home: Single Level Current Living Status: Spouse Entry Into Home: Stairs With Railing Steps Into Home: 3 ADL-Prior Level of Function SCALE: Activities may be completed with or without assistive devices. 1-Sanslkptdy-iaihcqi completes the activity by him/herself with no assistance from a helper. 5-Set-up or Clean-up Assistance-helper sets up or cleans up; patient completes activity. [place] assists only prior to or following the activity. 4-Supervision or Touching Assistance-helper provides verbal cues and/or storm mica/steadying and/or contact guard assistance as patient completes activity. Assistance may be provided throughout the activity or intermittently. 3-Partial/Moderate Assistance-helper does LESS THAN HALF the effort. [place] lifts, holds or supports trunk or limbs, but provides less than half the effort. 2-Substantial/Maximal Assistance-helper does MORE THAN HALF the effort. [place] lifts or holds trunk or limbs and provides more than half the effort. 1-Cirjhwvgq-unjlfq does ALL the effort. Patient does none of the effort to complete the activity. Or, the assistance of 2 or more helpers is required for the patient to complete the activity. If activity was not attempted, code reason: 7-Patient Refused. 9-Not Applicable-not attempted and the patient did not perform the activity before the current illness, exacerbation or injury. 10-Not Attempted due to Environmental Limitations-(lack of equipment, weather restraints, etc.). 88-Not Attempted due to Medical Conditions or Safety Concerns. ADL PLOF Comments Pt was mod I with use of walker during most ADLs (though assisted with shoe/ sock donning). Does not complete cooking/ cleaning/ driving. Self Care: Independent Functional Cognition: Independent DME/Equipment: Bath Chair, Bedside Commode, Grab Bars, Shower DME/Equipment Comments BSC placed over toilet. 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 Pt agrees to tx, no pain noted, states has been in bed a couple days. States knows BP has been low as well as O2. attends session midway on. Mental Status/Objective Patient Orientation: Person, Place, Situation, Normal For Age Attachments: IV, Oxygen Current Glasses/Contacts: Yes Hearing Aids: Yes Hand Dominance: Right Upper Extremity ROM WFL BUE Upper Extremity Coordination WFL BUE Upper Extremity Sensation WFL BUE Upper Extremity Strength WFL BUE ADL-Treatment Eating (QC): 6 Oral Hygiene (QC): 6 On/Off Footwear (QC): 88 Toileting Hygiene (QC): 4 (CGA, pt requests OT's assist, with encouragement, pt completes with CGA ) Other Treatments Pt completes MMT/ ROM, evaluation and home environment screen. Pt states has been slightly dizzy at times and weak due to being in bed. Pt's BP assessed in sit: 157/69 and 02 91%. Pt sit to stand with CGA, use of walker. BP drops to 146/62, no c/o dizzy. Ambulates to commode (SBA, OT manipulates lines), sits with control. Requires increased time for toileting, OT reenters and states completed. Pt stands CGA, wipes with CGA, returns to sit in recliner. All needs met, call light in reach. present at bedside. Pt and educated on skilled OT tx to ensure UE strengthening, overall fx endurance for return home. Education OT Patient Education: Correct positioning, Purpose of tx/functional activities, Safety issues, Transfer techniques Teaching Recipient: Patient Teaching Methods: Demonstration, Discussion Response to Teaching: Verbalize Understanding, Return Demonstration OT Care Home Goals Program Director/Morning Show Host Goals Time Frame: Jan 17, 2021 Eating (QC): 6 Oral Hygiene (QC): 6 Toileting Hygiene (QC): 6 Shower/Bathe Self (QC): 6 Upper Body Dressing (QC): 6 Lower Body Dressing (QC): 6 On/Off Footwear (QC): 88 Additional Goals: 1-Demonstrate ADL Tasks, 2-Verbalize Understanding, 3- ImproveStrength/Ejnnifer 1=Demonstrate adherence to instructed precautions during ADL tasks. 2=Patient will verbalize/demonstrate understanding of assistive devices/modifications for ADL. 3=Patient will improve strength/tolerance for activity to enable patient to perform ADL's. OT Education/Plan Problem List/Assessment Assessment: Decreased Activ Tolerance, Dependent Transfers, Impaired I ADL's, Impaired Self-Care Skills Discharge Recommendations Plan/Recommendations: Continue POC Therapy Discharge Recommendati: Home & Family Treatment Plan/Plan of Care Treatment,Training & Education: Yes Patient would benefit from OT for education, treatment and training to promote independence in ADL's, mobility, safety and/or upper extremity function for ADL's. Plan of Care: ADL Retraining, Caregiver Training, Concurrent Therapy, Functional Mobility, UE Funct Exercise/Act Treatment Duration: Jan 17, 2021 Frequency: 5 times per week Estimated Hrs Per Day: .25 hour per day Agreement: Yes Rehab Potential: Fair Time/GCodes Start Time: 10:31 Stop Time: 11:00 Total Time Billed (hr/min): 29 Billed Treatment Time [id number] ADL (31) CHRISTOPHER SANDOVAL OTR Jan 10, 2021 11:11
[2021-01-10 12:00] VITALS: BP 158/70
--- NOTE | 2021-01-10 12:21 | Discharge Summary ---
Discharge Summary Hospital Course Was the Problem List Reviewed?: Yes Problems/Dx: (1) Orthostatic hypotension Status: Acute Hospital Course Date of Admission: Jan 09, 2021 at 16:15 Admission Diagnosis : Orthostatic hypotension Family Physician/Provider: Tariq Bradford DO Date of Discharge: 01/10/21 Discharge Diagnosis: Orthostatic hypotension Hospital Course: Kamran Hernandez is an 85-year-old male with past medical history of hypertension, hyperlipidemia, atrial fibrillation, diabetes, COPD on chronic oxygen, who presented with lightheadedness and dizziness and was admitted with orthostatic hypotension. He was treated with IV fluids and his blood pressure medicines were held. His orthostasis resolved. His losartan was discontinued. He was discharged home in stable condition and will resume home health care. Labs and Pending Lab Test: Laboratory Tests 01/09/21 15:00: White Blood Count 10.0, Red Blood Count 3.54L, Hemoglobin 9.8L, Hematocrit 31L, Mean Corpuscular Volume 88, Mean Corpuscular Hemoglobin 28, Mean Corpuscular Hemoglobin Concent 31L, Red Cell Distribution Width 17.4H, Platelet Count 260, Mean Platelet Volume 9.8, Immature Granulocyte % (Auto) 0, Neutrophils (%) (Auto) 89H, Lymphocytes (%) (Auto) 5L, Monocytes (%) (Auto) 5, Eosinophils (%) (Auto) 1, Basophils (%) (Auto) 0, Neutrophils # (Auto) 8.8H, Lymphocytes # (Auto) 0.5L, Monocytes # (Auto) 0.5, Eosinophils # (Auto) 0.1, Basophils # (Auto) 0.0, Immature Granulocyte # (Auto) 0.0, Neutrophils % (Manual) 88, Lymphocytes % (Manual) 7, Monocytes % (Manual) 5, Poikilocytosis SLIGHT, Anisocytosis SLIGHT, Prothrombin Time 15.2H, INR Comment 1.2, Activated Partial Thromboplast Time 26, Sodium Level 130L, Potassium Level 4.5, Chloride Level 98, Carbon Dioxide Level 22, Anion Gap 10, Blood Urea Nitrogen 27H, Creatinine 0.98, Estimat Glomerular Filtration Rate > 60, BUN/Creatinine Ratio 28, Glucose Level 106H, Calcium Level 8.2L, Corrected Calcium 8.8, Total Bilirubin 0.6, Aspartate Amino Transf (AST/SGOT) 48H, Alanine Aminotransferase (ALT/SGPT) 110H, Alkaline Phosphatase 75, Total Protein 5.9L, Albumin 3.2 01/09/21 15:12: Troponin I < 0.028, B-Type Natriuretic Peptide 165.2H 01/09/21 15:18: Urine Color YELLOW, Urine Clarity CLEAR, Urine pH 7.0, Urine Specific [place] 1.015L, Urine Protein NEGATIVE, Urine Glucose (UA) NEGATIVE, Urine Ketones NEGATIVE, Urine Nitrite NEGATIVE, Urine Bilirubin NEGATIVE, Urine Urobilinogen 1.0, Urine Leukocyte Esterase TRACEH, Urine RBC (Auto) NEGATIVE, Urine RBC NONE, Urine WBC 2-5, Urine Squamous Epithelial Cells 0-2, Urine Crystals NONE, Urine Bacteria TRACE, Urine Casts NONE, Urine Mucus NEGATIVE, Urine Yeast FEWH, Urine Culture Indicated YES 01/10/21 05:18: White Blood Count 7.8, Red Blood Count 3.12L, Hemoglobin 8.7L, Hematocrit 27L, Mean Corpuscular Volume 87, Mean Corpuscular Hemoglobin 28, Mean Corpuscular Hemoglobin Concent 32, Red Cell Distribution Width 17.6H, Platelet Count 212, Mean Platelet Volume 9.8, Immature Granulocyte % (Auto) 0, Neutrophils (%) (Auto ) 79H, Lymphocytes (%) (Auto) 12, Monocytes (%) (Auto) 7, Eosinophils (%) (Auto) 1, Basophils (%) (Auto) 0, Neutrophils # (Auto) 6.1, Lymphocytes # (Auto) 1.0, Monocytes # (Auto) 0.6, Eosinophils # (Auto) 0.1, Basophils # (Auto) 0.0, Immature Granulocyte # (Auto) 0.0, Sodium Level 132L, Potassium Level 4.4, Chloride Level 104, Carbon Dioxide Level 19L, Anion Gap 9, Blood Urea Nitrogen 20H, Creatinine 0.78, Estimat Glomerular Filtration Rate > 60, BUN/Creatinine Ratio 26, Glucose Level 68L, Calcium Level 7.6L, Corrected Calcium 8.7, Total Bilirubin 0.6, Aspartate Amino Transf (AST/SGOT) 46H, Alanine Aminotransferase (ALT/SGPT) 99H, Alkaline Phosphatase 63, Total Protein 4.9L, Albumin 2.6L Home Meds Active Prednisone 10 Mg Tab.ds.pk 10 Mg PO DAILY Take 4 tabs(40mg)daily,decrease by 1 tab(10mg)every other day until remaining on 10mg daily until see dr mancia Pantoprazole Sodium 40 Mg Tablet. 40 Mg PO BID Reported Promethazine-Codeine Solution (Promethazine HCl/Codeine) 473 Ml Syrup 10 Ml PO Q8H PRN [place] Saline Nasal Gel (Sodium Chloride/Aloe Vera) 14.1 Gm Gel..gram. 1 Applic NSEACH PRN PRN [Bethanechol] 25 Tab 25 Mg PO 0700,1200 LAST FILLED 02-17-2020 #360/180 DAY SUPPLY Amiodarone HCl 200 Mg Tablet 200 Mg PO DAILY Diltiazem ER (Diltiazem HCl) 180 Mg Capsule.er 180 Mg PO DAILY Stool Softener (Docusate Sodium) 100 Mg Capsule 100 Mg PO DAILY PRN Metformin HCl ER (Metformin HCl) 500 Mg Tab.er.24h 500 Mg PO 1800 Eliquis (Apixaban) 2.5 Mg Tablet 2.5 Mg PO BID Losartan Potassium 25 Mg Tablet 25 Mg PO HS Albuterol Sulfate 2.5 Mg/3 Ml Vial.neb 2.5 Mg NEB Q6H PRN Alfuzosin HCl ER (Alfuzosin HCl) 10 Mg Tab.er.24h 10 Mg PO DAILY Atorvastatin Calcium 40 Mg Tablet 40 Mg PO HS Assessment/Pt Instructions Take medications as prescribed. Stop taking Losartan. Monitor your blood pressure readings and keep a log for Dr. Bradford. Notify Dr. Bradford's office if your systolic blood pressure is higher than 200/110 or lower than 90/40. Return with worsening lightheadedness, dizziness, or if you feel like you are getting worse. Discharge Planning: <30 minutes discharge planning Discharge Instructions Discharge Diet: No Restrictions Activity as Tolerated: Yes Consultations Cardiology Discharge Physical Examination Vital Signs Vital Signs Date Time Temp Pulse Resp B/P (MAP) Pulse Ox O2 Delivery O2 Flow Rate FiO2 01/10/21 09:04 94 Nasal Cannula 3.00 01/10/21 08:00 36.8 76 22 158/68 (98) General Appearance: No Apparent Distress, WD/WN Respiratory: Lungs Clear, Normal Breath Sounds, No Respiratory Distress Cardiovascular: Regular Rate, Rhythm, No Edema, No Murmur Gastrointestinal: Normal Bowel Sounds, Non Tender, Soft Extremity: Normal Inspection, Non Tender, No Pedal Edema Skin: Normal Color, Warm/Dry Neurologic/Psychiatric: Alert, Oriented x3, No Motor/Sensory Deficits, 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 Allergies: Coded Allergies: No Known Drug Allergies (Unverified , 06/15/20) Copy Copies To 1: TARIQ BRADFORD DO Discharge Summary Date of Admission Jan 09, 2021 at 16:15 Date of Discharge Discharge Date: Jan 10, 2021 Discharge Time: 12:19 Consults/Procedures Consulations Cardiology Discharge Diagnosis (1) Orthostatic hypotension Status: Acute DESHAWN OCAMPO MD Jan 10, 2021 12:13
[2021-01-10] MEDS ORDERED: APIXABAN 2.5 MG (ELIQUIS) TABLET PO SCH (21:00)
== END 2021-01-10 15:00 | disposition home or self-care (01) ==
LOC: EDUNIT# 14:29 → ER 14:31 → 4TH 16:15
PROVIDERS: ADMIT Internal Medicine; ATTEND Internal Medicine
DX: I95.1 Orthostatic hypotension (principal); I48.20 Chronic atrial fibrillation, unspecified; E78.5 Hyperlipidemia, unspecified; I10 Essential (primary) hypertension; I65.23 Occlusion and stenosis of bilateral carotid arteries; E11.9 Type 2 diabetes mellitus without complications; I49.1 Atrial premature depolarization; I25.10 Atherosclerotic heart disease of native coronary artery without angina pectoris; J44.9 Chronic obstructive pulmonary disease, unspecified; N40.0 Benign prostatic hyperplasia without lower urinary tract symptoms; K21.9 Gastro-esophageal reflux disease without esophagitis; E78.00 Pure hypercholesterolemia, unspecified; J18.9 Pneumonia, unspecified organism; D64.9 Anemia, unspecified; I25.2 Old myocardial infarction; L30.9 Dermatitis, unspecified; M19.90 Unspecified osteoarthritis, unspecified site; L40.9 Psoriasis, unspecified; Z87.19 Personal history of other diseases of the digestive system; Z99.81 Dependence on supplemental oxygen; Z79.01 Long term (current) use of anticoagulants; Z86.73 Personal history of transient ischemic attack (TIA), and cerebral infarction without residual deficits; Z87.891 Personal history of nicotine dependence; Z79.84 Long term (current) use of oral hypoglycemic drugs; Z98.890 Other specified postprocedural states
CPT/HCPCS: 71045; 80053 ×2; 81000; 83880; 84484; 85007; 85025; 85027; 85610; 85730; 87077; 87088; 87186; 93005; 94760 ×2; 97162; 97166; 97535; 99284; G0378; 36415

== ENCOUNTER 2021-02-10 09:37 | Inpatient (IN) | payer MEDICARE, OTHER ==
[~2021-02-10] VITALS: Ht 170.2 cm; Wt 53.8 kg
[~2021-02-10 09:37] MED LIST changes: +ACETAMINOPHEN 325 MG TABLET PO PRN; +ALPRAZolam 0.25 MG (XANAX) TAB PO PRN; +BISACODYL 10 MG SUPP (DULCOLAX) PR PRN; +CALCIUM CARBONATE 500 MG (TUMS) TAB.CHEW PO PRN; +CHOL200074 PO; -DOCU-238 PO; +DOCU-241 PO; +DOCUSATE SODIUM 100 MG (COLACE) CAP PO PRN; +FLEET ENEMA ADULT 1 EA BTL PR PRN; +LACTULOSE SYRUP 10GM/15ML (ENULOSE) 30ML UDC PO PRN; +LOPERAMIDE 2 MG (IMODIUM) TABLET PO PRN; +MELATONIN 3 MG TABLET PO PRN; +ONDANSETRON 4 MG (ZOFRAN) ORAL DISSOLVE TAB PO PRN; +POLY17PO6 PO; +RT-ALBUINH INH; +diphenhydrAMINE 25 MG TAB (BENADRYL) PO PRN; +guaiFENesin/CODEINE (ROBITUSSIN AC) 10ML UDC PO PRN
[2021-02-10] MEDS: polyethylene glycoL POWDER 17 GM (MIRALAX) PACK PO SCH ×2 (10:11→19:38)
[2021-02-10] MEDS: SENNA W/DOCUSATE (SENOKOT S) TABLET PO SCH ×2 (10:11→20:57)
[2021-02-10] MEDS: DOCUSATE SODIUM 100 MG (COLACE) CAP PO SCH ×2 (10:11→20:57)
[2021-02-10] MEDS ORDERED: DOCUSATE SODIUM 100 MG (COLACE) CAP PO PRN (10:15)
[2021-02-10] MEDS ORDERED: CATHETER FLUSH 10 ML SYR IV PRN (10:15)
[2021-02-10] MEDS ORDERED: PATIENT MAY USE OWN MEDS, ALL MC SCH (10:15)
[2021-02-10] MEDS ORDERED: LOPERAMIDE 2 MG (IMODIUM) TABLET PO PRN (10:15)
--- NOTE | 2021-02-10 10:56 | Physical Therapy Evaluation ---
PT Evaluation-General Medical Diagnosis Admission Date Feb 10, 2021 at 09:37 Medical Diagnosis: COPD exacerbation, myopathy, weaknes Onset Date: Jan 31, 2021 Therapy Diagnosis Therapy Diagnosis: Impaired mobility Height/Weight Height (Feet): 5 Height (Inches): 7.00 Weight (Pounds): 140 Weight (Ounces): 0.0 Precautions Precautions/Isolations: Fall Prevention, Standard Precautions Referral Physician: Dr Harrison Reason for Referral: Evaluation/Treatment Medical History Pertinent Medical History: Atrial Fib, Arthritis, CAD, COPD, DM, GERD, HTN Current History Admit due to fatigue/weakness. Reviewed History: Yes Social History Home: Single Level Current Living Status: Significant Other Entry Into Home: Stairs With Railing PT Steps Into Home: 3 PT Steps Inside Home: 0 Prior Prior Level of Function SCALE: Activities may be completed with or without assistive devices. 9-Kybzayyuwl-chthnek completes the activity by him/herself with no assistance from a helper. 5-Set-up or Clean-up Assistance-helper sets up or cleans up; patient completes activity. Delong assists only prior to or following the activity. 4-Supervision or Touching Assistance-helper provides verbal cues and/or touching/steadying and/or contact guard assistance as patient completes activity. Assistance may be provided throughout the activity or intermittently. 3-Partial/Moderate Assistance-helper does LESS THAN HALF the effort. Delong lifts, holds or supports trunk or limbs, but provides less than half the effort. 2-Substantial/Maximal Assistance-helper does MORE THAN HALF the effort. Delong lifts or holds trunk or limbs and provides more than half the effort. 8-Ukqrcfbsc-qegysa does ALL the effort. Patient does none of the effort to complete the activity. Or, the assistance of 2 or more helpers is required for the patient to complete the activity. If activity was not attempted, code reason: 7-Patient Refused. 9-Not Applicable-not attempted and the patient did not perform the activity before the current illness, exacerbation or injury. 10-Not Attempted due to Environmental Limitations-(lack of equipment, weather restraints, etc.). 88-Not Attempted due to Medical Conditions or Safety Concerns. Bed Mobility: 6 Transfers (B,C,W/C): 6 Gait: 6 Stairs: 6 Indoor Mobility (Ambulation): Independent Stairs: Independent Prior Devices Use: Walker PT Evaluation-Current Subjective No pain reported during evaluation. Primary issue is dyspnea with minimal e xertion. Pt/Family Goals Return home. Objective Patient Orientation: Person, Place, Time, Situation Attachments: Oxygen 3L per NC, 95% throughout evaluation. ROM/Strength ROM Upper Extremities WFL ROM Lower Extremities WFL Strength Upper Extremities 4-/5 Strength Lower Extremities 4-/5 Integumentary/Posture Bowel Incontinence: No Bladder Incontinence: No Neuromuscular (Tone, Coordination, Reflexes) Intact coordination and reflexes for (B) LEs. Normal (B) UE/LE tone. Sensory Vision: Wears Glasses Hearing: Hearing Aid/Aides Sensation Right Upper Extremit: Intact Sensation Left Upper Extremity: Intact Sensation Right Lower Extremit: Intact Sensation Left Lower Extremity: Intact Transfers Roll Left & Right (QC): 5 Sit to Lying (QC): 5 Lying to Sitting/Side of Bed(Q: 5 Sit to Stand (QC): 5 Chair/Cvq-lr-Ayvrl Xfer(QC): 5 Toilet Transfer (QC): 5 Car Transfer (QC): 5 Gait Does the Patient Walk?: Yes Mode of Locomotion: Walk Anticipated Mode of Locomotion: Walk Walk 10 feet (QC): 5 Walk 50 ft with 2 Turns(QC): 5 Walk 150 ft (QC): 88 Walking 10ft/uneven surface-QC: 5 Distance: 108ft Gait Assistive Device: FWW Wheelchair Training Does the Pt Use a Wheelchair?: No Wheel 50 ft with 2 turns (QC): 9 Wheel 150 ft (QC): 9 Stairs #of Steps: 1 1 Step (curb) (QC): 5 4 Steps (QC): 88 12 Steps (QC): 88 Walking Assistive Device: Walker Balance Sitting Static: Good Sitting Dynamic: Good Standing Static: Good Standing Dynamic: Fair Picking up an Object (QC): 88 Assessment/Needs Pt is limited by dyspnea, but is very motivated to improve and return home. Rehab Potential: Good PT Snf Goals Java Architect Goals PT Java Architect Goals Time Frame: February 24, 2021 Roll Left & Right (QC): 6 Sit to Lying (QC): 6 Lying-Sitting on Side/Bed(QC): 6 Sit to Stand (QC): 6 Chair/Hbd-ck-Fmglb Xfer(QC): 6 Toilet Transfer (QC): 6 Car Transfer (QC): 6 Does the Patient Walk: Yes Walk 10 feet (QC): 6 Walk 50ft with 2 Turns (QC): 6 Walk 150 ft (QC): 6 Walking 10ft on Uneven Surface: 6 1 Step (curb) (QC): 6 4 Steps (QC): 6 12 Steps (QC): 5 Picking up an Object (QC): 6 Does the Pt use WC or Scooter?: No Wheel 50 feet with 2 turns (QC: 9 Wheel 150 feet: 9 PT Plan Problem List Problem List: Activity Tolerance, Functional Strength, Safety, Gait, Bed Mobility Treatment/Plan Treatment Plan: Continue Plan of Care Treatment Plan: Bed Mobility, Concurrent Therapy, Functional Activity Jennifer, Functional Strength, Group Therapy, Gait, Safety, Therapeutic Exercise, Transfers Treatment Duration: February 24, 2021 Frequency: At least 5 of 7 days/Wk (IRF) Estimated Hrs Per Day: 1.5 hours per day Patient and/or Family Agrees t: Yes Time/GCodes Time In: 1025 Time Out: 1050 Total Billed Treatment Time: 25 Total Billed Treatment 1, mehnaz 25 KANDIS ANNA PT Feb 10, 2021 10:56
[2021-02-10] MEDS: inSUlin ASPART (NovoLOG) 1 UNIT/0.01 ML (CHARGE PER UNIT) SC SCH ×3 (11:03→20:52)
[2021-02-10] MEDS: RT-ALBUTEROL/IPRATROPIUM 3 ML (DUONEB) VIAL INH SCH ×3 (11:24→19:03)
--- NOTE | 2021-02-10 12:48 | PM&R Post Admission Assessment ---
PM&R HP Date of Visit: Feb 10, 2021 Time of Visit: 13:00 History of Present Illness CC: COPD myopathy HPI: This is an 85yoWM clinic patient of Dr Howe who is known to me from prior IRF a few months ago for severe COPD and PNA who presents to the IRF for the same diagnosis. Apparently he presented with increased dyspnea and was found to have volume overload with PNA given Lasix and abx. ICU stay required due to increased work of breathing. Vapotherm was maintained and eventually weaned. He is currently at his baseline O2 at 2 liters. He reports he is weak. I reviewed all of hospital notes and labs and imaging. Past Uwzgwrw-Ryfong-Imqglg Hx Past Med/Social Hx: Reviewed Nursing Past Med/Soc Hx, Reviewed and Corrections made Patient Social History Marrital Status: Employed/Student: retired Alcohol Use: Denies Use Alcohol Beverage of Choice: Beer, Wine Former Smoker, Quit: Jul 26, 1984 2nd Hand Smoke Exposure: Yes Recent Foreign Travel: No Contact w/other who traveled: No Recent Hopitalizations: No Immunizations Up To Date Tetanus Booster (TDap): Unknown Date of Pneumonia Vaccine: Aug 03, 2018 Date of Influenza Vaccine: Jul 27, 2020 Seasonal Allergies Seasonal Allergies: Yes (RUNNY NOSE) Past Medical History Surgeries: Orthopedic Respiratory: COPD, Pneumonia Currently Using CPAP: No Currently Using BIPAP: No Cardiac: Atrial Fibrillation, Coronary Artery Disease, High Cholesterol, Hypertension, Valvular Heart Disease Neurological: Stroke Reproductive: No Sexually Transmitted Disease: No HIV/AIDS: No Genitourinary: Benign Prostatic Hyperpl Gastrointestinal: Gastroesophageal Reflux, Diverticulosis, Polyps Musculoskeletal: Arthritis, Chronic Back Pain Endocrine: Diabetes, Non-Insulin dep HEENT: Cataract Loss of Vision: Denies Hearing Impairment: Hard of Hearing, Bilateral Hearing Aide Skin/Integumentary: Eczema, Psoriasis History of Blood Disorders: Yes (HX ANEMIA -BLEEDING ULCER) Adverse Reaction to Blood Gomez: No (HAS HAD BLOOD WITH NO REACTION) Family History FH: liver disease 19 MOTHER FH: lung cancer 19 FATHER Cancer Prior Level of Function Bed Mobility: 6 Transfers: 6 Gait: 6 Stairs: 6 Indoor Mobility (Ambulation): Independent Stairs: Independent Prior Devices Use: Walker Occupation: retired. Current Level of Fuctioning Roll Left to Right: 5 Sit to Lyin Lying to Sitting/Side of Bed: 5 Sit to Stand: 5 Chair/Rxe-al-Fsszw Xfer: 5 Car Transfer: 5 Does the Patient Walk: Yes Mode of Locomotion: Walk Anticipated Mode of Locomotion: Walk Walk 10 feet: 5 Walk 50 ft with 2 Turns: 5 Walk 150 ft: 88 Walking 10ft on uneven surface: 5 Gait Assistive Device: FWW Does the Pt Use a Wheelchair: No Wheel 50 ft with 2 turns: 9 Wheel 150 ft: 9 #of Steps: 1 1 Step (curb): 5 4 Steps: 88 Walking Assistive Device: Walker 12 Steps: 88 Picking up an Object: 88 PM&R Allergy/Meds/Data Review Allergies Coded Allergies: No Known Drug Allergies (Unverified , 06/15/20) Home Medications Scheduled Alfuzosin HCl (Alfuzosin HCl ER), 10 MG PO DAILY, (Reported) Amiodarone HCl (Amiodarone HCl), 200 MG PO DAILY, (Reported) Apixaban (Eliquis), 2.5 MG PO BID, (Reported) Atorvastatin Calcium (Atorvastatin Calcium), 40 MG PO HS, (Reported) Cholecalciferol (Vitamin D3) (Vitamin D3), 50 MCG PO DAILY, (Reported) Diltiazem HCl (Diltiazem ER), 180 MG PO DAILY, (Reported) Metformin HCl (Metformin HCl ER), 500 MG PO 1800, (Reported) [Bethanechol], 25 MG PO 0700,1200, (Reported) Scheduled PRN Acetaminophen (Tylenol Extra Strength), 500-1,000 MG PO Q8H PRN for PAIN-MILD (1-4), (Reported) Albuterol Sulfate (Proair Hfa), 2 PUFF INH Q6H PRN for SHORTNESS OF BREATH, (Reported) Docusate Sodium (Stool Softener), 100 MG PO DAILY PRN for CONSTIPATION-1ST LINE, (Reported) Polyethylene Glycol 3350 (Miralax), 17 GM PO DAILY PRN for CONSTIPATION-2ND LINE, (Reported) Current Medications Current Medications Reviewed Laboratory Data Laboratory Tests 02/10/21 10:59: Glucometer 138H Review of Systems Constitutional: see HPI, malaise, weakness EENTM: no symptoms reported Respiratory: dyspnea on exertion, short of breath Cardiovascular: no symptoms reported Gastrointestinal: no symptoms reported Genitourinary: no symptoms reported Musculoskeletal: no symptoms reported Skin: no symptoms reported Psychiatric/Neurological: Depressed All Other Systems Reviewed Negative Unless Noted: Yes Physical Exam Physical Exam Vital Signs Vital Signs - First Documented 02/10/21 02/10/21 02/10/21 10:21 11:25 12:24 Pulse 74 Pulse Ox 97 O2 Delivery Room Air O2 Flow Rate 3.00 Capillary Refill : Height, Weight, BMI Height: 5'7.00" Weight: 140lbs. 0.0oz. [id number]; 20.12 BMI Method:Stated General Appearance: No Apparent Distress, WD/WN, Chronically ill, Thin Eyes: Bilateral Eye Normal Inspection, Bilateral Eye PERRL HEENT: PERRL/EOMI, Normal ENT Inspection, Pharynx Normal Neck: Full Range of Motion, Normal Inspection, Non Tender, Supple, Carotid Bruit Respiratory: Chest Non Tender, No Accessory Muscle Use, No Respiratory Distress, Crackles, Decreased Breath Sounds Cardiovascular: Regular Rate, Rhythm, No Edema, No Gallop, No JVD, No Murmur, Normal Peripheral Pulses Gastrointestinal: Normal Bowel Sounds, No Organomegaly, No Pulsatile Mass, Non Tender, Soft Back: Normal Inspection, No CVA Tenderness, No Vertebral Tenderness Extremity: Normal Capillary Refill, Normal Inspection, Normal Range of Motion, Non Tender, No Calf Tenderness, No Pedal Edema Neurologic/Psychiatric: Alert, Oriented x3, No Motor/Sensory Deficits, utility forester II- XII Norm as Tested, Abnormal Gait, Depressed Affect, Motor Weakness (lower extremities 4/5) Skin: Normal Color, Warm/Dry Lymphatic: No Adenopathy PM&R Medical Assessment & Plan REHAB/MEDICAL ASSESSMENT AND PLAN: REHAB IMPAIRMENT GROUP: COPD myopathy ETIOLOGIC DIAGNOSIS: COPD myopathy The comorbidities that impact the patients function and/or functional outcome by: advanced age, severe COPD at baseline, co-morbidities of DM and volume overload REHAB PLAN: The patient is being admitted to our comprehensive inpatient rehabilitation facility and can tolerate the intensity of service consisting of at least: 180 minutes of therapy a day, 5 out of 7 days a week Rehab treatment will consist of: PT OT will focus on regaining strength and increase ADL independence with use of AD in order to return to independent living The patient/family has a good understanding of our discharge process and will benefit from an interdisciplinary inpatient rehabilitation program. The patient has potential to make improvement and is in need of at least two of the following multidisciplinary therapies including but not limited to physical, occupational, speech, and prosthetics and orthotics. Additionally the patient will need services from respiratory, nutritional services, wound care, psychology, etc. (Customize this to each patient). Given the patients complex condition and risk of further medical complications, rehabilitation services cannot be safely or effectively provided at a lower level of care such as a senior care facility. BARRIERS TO DISCHARGE: Advanced age and advanced COPD ESTIMATED LOS: 7 days DISPOSITION: Home RELEVANT CHANGES SINCE PREADMISSION SCREENING: I have compared the patients medical and functional status at the time of the preadmission screening and there are: no changes PROGNOSIS: Fair REHABILITATION GOALS: 1. PT OT will focus on regaining strength and increase ADL independence with use of AD in order to return to independent living All the above goals were reviewed with the patient and he/she is in agreement. By signing this document, I acknowledge that I have personally performed a full physical examination on this patient within 24 hours of admission to this inpatient rehabilitation facility and have determined the patient to be able to tolerate the above course of treatment at an intensive level for a reasonable period of time. I will be completing a detailed individualized Plan of Care for this patient by day #4 of the patients stay based upon the Preadmission Screen, the Post-Admission Evaluation, and the therapy evaluations. Admission Dx/Comorbidities: (1) Myopathy ICD Codes: G72.9 - Myopathy, unspecified (2) Atrial fibrillation with RVR Status: Acute ICD Codes: I48.91 - Unspecified atrial fibrillation (3) T2DM (type 2 diabetes mellitus) Status: Chronic ICD Codes: E11.9 - Type 2 diabetes mellitus without complications (4) Acute and chronic respiratory failure with hypoxia Status: Acute ICD Codes: J96.21 - Acute and chronic respiratory failure with hypoxia (5) Orthostatic hypotension Status: Acute ICD Codes: I95.1 - Orthostatic hypotension (6) COPD with exacerbation Status: Acute ICD Codes: J44.1 - Chronic obstructive pulmonary disease with (acute) exacerbation (7) General weakness Status: Acute ICD Codes: R53.1 - Weakness (8) Dyspnea ICD Codes: R06.00 - Dyspnea, unspecified Assessment/Plan Assessment and Plan Assess & Plan/Chief Complaint Assessment: COPD myopathy Acute on chronic hypoxic respiratory failure AECOPD Severe COPD at baseline pAF HTN Orthostatic hypotension DM BPH Plan: IRF protocol Nebs O2 COmpleted abx Monitor labs MARY LAMBERT DO Feb 10, 2021 12:48
[2021-02-10] MEDS: LACTOBACILLUS ACIDOPHILUS (PROBIOTIC) CAPSULE PO SCH ×2 (13:20→17:04)
[2021-02-10] MEDS: TAMSULOSIN 0.4 MG (FLOMAX) CAP PO SCH (17:04)
[2021-02-10 17:17] VITALS: BP 173/79
[2021-02-10] MEDS: dilTIAZem120 MG (CARDIZEM CD) CAP PO SCH (17:41)
[2021-02-10 19:53] VITALS: BP 159/72
[2021-02-10] MEDS: APIXABAN 2.5 MG (ELIQUIS) TABLET PO SCH (20:56)
[2021-02-11 04:59] LABS: BASOPHILS % (AUTO) 0 % (0-10); EOSINOPHILS # (AUTO) 0.1 10^3/uL (0.0-0.3); EOSINOPHILS % (AUTO) 1 % (0-10); HEMATOCRIT 27 % (40-54); HEMOGLOBIN 8.6 g/dL (13.3-17.7); LYMPHOCYTES # (AUTO) 1.5 10^3/uL (1.0-4.0); LYMPHOCYTES % (AUTO) 13 % (12-44); MEAN CORPUSCULAR HEMOGLOBIN 27 pg (25-34); MEAN CORPUSCULAR HGB CONC 32 g/dL (32-36); MEAN CORPUSCULAR VOLUME 85 fL (80-99); MEAN PLATELET VOLUME 9.7 fL (9.0-12.2); MONOCYTES % (AUTO) 9 % (0-12); NEUTROPHILS # (AUTO) 9.1 10^3/uL (1.8-7.8); NEUTROPHILS % (AUTO) 77 % (42-75); PLATELET COUNT 377 10^3/uL (130-400); WHITE BLOOD COUNT 11.7 10^3/uL (4.3-11.0)
[2021-02-11 05:12] LABS: ALBUMIN 2.8 GM/DL (3.2-4.5); CHLORIDE 98 MMOL/L (98-107); POTASSIUM 3.5 MMOL/L (3.6-5.0); SODIUM 135 MMOL/L (135-145)
[2021-02-11 05:13] LABS: CALCIUM 8.2 MG/DL (8.5-10.1)
[2021-02-11 05:14] LABS: GLUCOSE 75 MG/DL (70-105)
[2021-02-11 05:15] LABS: TOTAL PROTEIN 5.5 GM/DL (6.4-8.2)
[2021-02-11 05:16] LABS: BILIRUBIN,TOTAL 0.4 MG/DL (0.1-1.0); CARBON DIOXIDE 26 MMOL/L (21-32)
[2021-02-11 05:18] LABS: ALKALINE PHOSPHATASE 64 U/L (40-136); CREATININE SERUM 0.84 MG/DL (0.60-1.30); GFR ESTIMATED > 60
[2021-02-11 05:19] LABS: BUN/CREATININE RATIO 24
[2021-02-11 05:21] LABS: ALANINE AMINOTRANSFERASE 68 U/L (0-55)
[2021-02-11] MEDS: inSUlin ASPART (NovoLOG) 1 UNIT/0.01 ML (CHARGE PER UNIT) SC SCH ×4 (06:28→20:50)
[2021-02-11] MEDS: predniSONE 20 MG TAB PO SCH (06:38)
[2021-02-11] MEDS: RT-ALBUTEROL/IPRATROPIUM 3 ML (DUONEB) VIAL INH SCH ×4 (06:59→18:52)
[2021-02-11 07:19] VITALS: BP 133/65
[2021-02-11] MEDS: FUROSEMIDE 40 MG (LASIX) TAB PO SCH (08:28)
[2021-02-11] MEDS: APIXABAN 2.5 MG (ELIQUIS) TABLET PO SCH ×2 (08:28→20:50)
[2021-02-11] MEDS: DIGOXIN 0.125 MG (LANOXIN) TAB PO SCH (08:28)
[2021-02-11] MEDS: dilTIAZem120 MG (CARDIZEM CD) CAP PO SCH (08:29)
[2021-02-11] MEDS: LACTOBACILLUS ACIDOPHILUS (PROBIOTIC) CAPSULE PO SCH ×3 (08:29→18:03)
[2021-02-11] MEDS: AMIODARONE 200 MG (CORDARONE) TAB PO SCH (08:29)
[2021-02-11] MEDS: SENNA W/DOCUSATE (SENOKOT S) TABLET PO SCH ×2 (08:30→20:08)
[2021-02-11] MEDS: polyethylene glycoL POWDER 17 GM (MIRALAX) PACK PO SCH ×2 (08:30→20:07)
[2021-02-11] MEDS: DOCUSATE SODIUM 100 MG (COLACE) CAP PO SCH ×2 (08:30→20:07)
[2021-02-11] MEDS ORDERED: dilTIAZem120 MG (CARDIZEM CD) CAP PO SCH (09:00)
--- NOTE | 2021-02-11 11:52 | PM&R Progress Note ---
Subjective HPI/CC On Admission Date Seen by Provider: Feb 11, 2021 Time Seen by Provider: 12:00 Subjective/Events-last exam 02/11/21: Patient is doing well and daughter at the bedside Feels good Lungs sound good Completed abx WBC 11.7 hgb 8.[address] BM yesterday Review of Systems General: Fatigue, Malaise Pulmonary: Dyspnea, Cough Neurological: Weakness, Incoordination Objective Exam Vital Signs Vital Signs Date Time Temp Pulse Resp B/P (MAP) Pulse Ox O2 Delivery O2 Flow Rate FiO2 02/11/21 19:23 36.8 70 21 180/77 (111) 99 High Flow N/C 2.00 Capillary Refill : General Appearance: No Apparent Distress, WD/WN, Chronically ill, Thin HEENT: PERRL/EOMI, Normal ENT Inspection, Pharynx Normal Neck: Full Range of Motion, Normal Inspection, Non Tender, Supple, Carotid Bruit Respiratory: Chest Non Tender, No Accessory Muscle Use, No Respiratory Distress, Crackles, Decreased Breath Sounds Cardiovascular: Regular Rate, Rhythm, No Edema, No Gallop, No JVD, No Murmur, Normal Peripheral Pulses Gastrointestinal: Normal Bowel Sounds, No Organomegaly, No Pulsatile Mass, Non Tender, Soft Back: Normal Inspection, No CVA Tenderness, No Vertebral Tenderness Extremity: Normal Capillary Refill, Normal Inspection, Normal Range of Motion, Non Tender, No Calf Tenderness, No Pedal Edema Neurologic/Psychiatric: Alert, Oriented x3, No Motor/Sensory Deficits, 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 FIM Transfers Therapy Code Descriptions/Definitions Functional [place] Measure: 0=Not Assessed/NA 4=Minimal Assistance 1=Total Assistance 5=Supervision or Setup 2=Maximal Assistance 6=Modified [place] 3=Moderate Assistance 7=Complete IndependenceSCALE: Activities may be completed with or without assistive devices. 2-Vlnveccsza-usipmxd completes the activity by him/herself with no assistance from a helper. 5-Set-up or Clean-up Assistance-helper sets up or cleans up; patient completes activity. [place] assists only prior to or following the activity. 4-Supervision or Touching Assistance-helper provides verbal cues and/or touching/steadying and/or contact guard assistance as patient completes activity. Assistance may be provided throughout the activity or intermittently. 3-Partial/Moderate Assistance-helper does LESS THAN HALF the effort. [place] lifts, holds or supports trunk or limbs, but provides less than half the effort. 2-Substantial/Maximal Assistance-helper does MORE THAN HALF the effort. [place] lifts or holds trunk or limbs and provides more than half the effort. 6-Wcfmwgcsd-byhqja does ALL the effort. Patient does none of the effort to complete the activity. Or, the assistance of 2 or more helpers is required for the patient to complete the activity. If activity was not attempted, code reason: 7-Patient Refused. 9-Not Applicable-not attempted and the patient did not perform the activity before the current illness, exacerbation or injury. 10-Not Attempted due to Environmental Limitations-(lack of equipment, weather restraints, etc.). 88-Not Attempted due to Medical Conditions or Safety Concerns. Roll Left to Right (QC): 5 Sit to Lying (QC): 5 Sit to Stand (QC): 5 Chair/Dqv-uz-Otmgt Xfer(QC): 5 Car Transfer (QC): 5 Gait Training Does the Patient Walk?: Yes Walk 10 feet (QC): 5 Walk 50 ft with 2 Turns(QC): 5 Walk 150 ft (QC): 88 Walking 10ft/uneven surface-QC: 5 Gait Assistive Device: FWW Wheelchair Training Does the Pt Use a Wheelchair?: No Wheel 50 ft with 2 turns (QC): 9 Wheel 150 ft (QC): 9 Stair Training #of Steps: 1 1 Step (curb) (QC): 5 4 Steps (QC): 88 12 Steps (QC): 88 Balance Picking up an Object (QC): 88 Assessment/Plan Assessment and Plan Assess & Plan/Chief Complaint Assessment: COPD myopathy Acute on chronic hypoxic respiratory failure AECOPD Severe COPD at baseline pAF HTN Orthostatic hypotension DM BPH Plan: IRF protocol Nebs O2 COmpleted abx Monitor labs 02/11/21: Monitor closely O2 maintained nebs (1) Myopathy (2) Atrial fibrillation with RVR Status: Acute (3) T2DM (type 2 diabetes mellitus) Status: Chronic (4) Acute and chronic respiratory failure with hypoxia Status: Acute (5) Orthostatic hypotension Status: Acute (6) COPD with exacerbation Status: Acute (7) General weakness Status: Acute (8) Dyspnea MARY LAMBERT DO Feb 11, 2021 11:52
--- NOTE | 2021-02-11 11:52 | Individualized Plan of Care ---
Individualized Plan of Care Rehab Nursing IPOC Order Admission Date Feb 10, 2021 at 09:37 Current Orders Orders Admission Order(Inpt,Obs,Sdc) (02/10/21 08:38) Vital Signs: Per Unit Policy ( ,16,00 (02/10/21 08:38) [employer]-Inpt Rehab Con (02/10/21 08:38) Rehab Nursing Orders-Ipoc (02/10/21 08:38) Physical Therapy Rehab Orders (02/10/21 08:38) Occupational Therapy Rehab Ord (02/10/21 08:38) Speech Therapy Rehab Orders (02/10/21 08:38) Cbc With Automated Diff (02/11/21 06:00) Comprehensive Metabolic Panel (02/11/21 06:00) Precautions (Aru) (02/10/21 08:38) Rehab-Intensity Of Therapy (02/10/21 08:38) Initiate Admission Nursing Pro .admission (02/10/21 08:38) Acetaminophen Tablet/Caplet (Tylenol T (02/10/21 08:45) Alprazolam Tablet (Xanax Tablet) (02/10/21 08:45) Calcium Carbonate Chew Tablet (Antacid C (02/10/21 08:45) Diphenhydramine Tablet (Benadryl Tablet) (02/10/21 08:45) Docusate Sodium Capsule (Colace Capsule) (02/10/21 09:00) Docusate Sodium Capsule (Colace Capsule) (02/10/21 08:45) Bisacodyl Suppository (Dulcolax Supposit (02/10/21 08:45) Lactulose Oral Solution (Enulose Oral So (02/10/21 08:45) Na Phos/Na Biphos Enema (Fleet Enema [place] (02/10/21 08:45) Guaifenesin/Codeine Syrup (Robitussin Ac (02/10/21 08:45) Loperamide Tablet (Imodium Tablet) (02/10/21 08:45) Melatonin Tablet (Melatonin Tablet) (02/10/21 08:45) Polyethylene Glycol Powder Pkt (Miralax (02/10/21 09:00) Ondansetron Oral Dissolve Tab (Zofran (02/10/21 08:45) Senna S Tablet (Senokot S Tablet) (02/10/21 09:00) Initiate Admission Nursing Pro .admission (02/10/21 08:38) Admission Arrival Bed Request (02/10/21 09:29) Code/Resuscitation (02/10/21 10:12) Accucheck Achs ACHS (02/10/21 10:12) Catheter(Urinary) Discontinue (02/10/21 10:12) Incentive Spirometry (Nursing) Q2H (02/10/21 10:12) Weight Bearing As Tolerated (02/10/21 10:12) General/Regular (02/10/21 Lunch) Acetaminophen Tablet (Tylenol Tablet) (02/10/21 10:15) Albuterol/Ipra Inhalation Soln (Duoneb I (02/10/21 11:00) Amiodarone Tablet (Cordarone Tablet) (02/11/21 09:00) Apixaban Tablet (Eliquis Tablet) (02/10/21 21:00) Digoxin Tablet (Lanoxin Tablet) (02/11/21 09:00) Docusate Sodium Capsule (Colace Capsule) (02/10/21 10:15) Furosemide Tablet (Lasix Tablet) (02/11/21 09:00) Lactobacillus Acidophilus Cap (Acidophil (02/10/21 13:00) Loperamide Tablet (Imodium Tablet) (02/10/21 10:15) Insulin Aspart (Novolog) (Novolog (Charg (02/10/21 11:00) Patient May Use Own Meds, All (Patient M (02/10/21 10:15) Sodium Chloride Flush (Catheter Flush Sy (02/10/21 10:15) Tamsulosin Capsule (Flomax Capsule) (02/10/21 18:00) Prednisone Tablet (Deltasone Tablet) (02/11/21 07:00) Consult Cardiology (02/10/21 10:12) Incentive Spirometry Initial (02/10/21 10:12) Mat Initiate Protocol (02/10/21 10:12) Svn Small Volume Nebulizer (02/10/21 10:12) Telemetry (02/10/21 10:12) Svn Small Volume Nebulizer (02/10/21 10:12) Incentive Spirometry (Nursing) Q2H (02/10/21 10:12) Telemetry Nursing Assessment ( (02/10/21 10:12) Patient Visit (02/10/21 ) Pt Eval Low Complexity (02/10/21 ) Diltiazem Cd 24 Hr Capsule (Cardizem Cd (02/11/21 09:00) Diltiazem Cd 24 Hr Capsule (Cardizem Cd (02/10/21 17:30) Iron Test (Fe) (02/11/21 20:14) Rehab Nursing Orders: Ongoing Assess. of Cognitive Status, Ongoing Assess. of Function Status, Bladder Management, Bladder Scan, Bladder Training, Bowel Management, Bowel Training, Disease Management & Educaiton, DVT Prophylaxis, Fall Prevention, Fluid/Electrolyte/Nutrition Mgmt, Infection Prevention, Medication Management & Education, Management of Risks & Complications, Nutrition Management, Pain Management, Patient/Family Support, Safety Management Intensity of Therapy to be met Patient to be seen: Min.3h per day/5 of 7d PT IPOC Problem List: Activity Tolerance, Functional Strength, Safety, Gait, Bed Mobility Treatment Plan: Continue Plan of Care Bed Mobility, Concurrent Therapy, Functional Activity Jennifer, Functional Strength, Group Therapy, Gait, Safety, Therapeutic Exercise, Transfers Treatment Duration: February 24, 2021 Frequency: At least 5 of 7 days/Wk (IRF) Estimated Hrs Per Day: 1.5 hours per day OT IPOC Problems: Decreased Activ Tolerance, Decreased Safety Aware, Impaired Bed Mobility, Impaired Funct Balance, Impaired Self-Care Skills OT Treatment, Training and Edu: Yes Plan of Care: ADL Retraining, Concurrent Therapy, Functional Mobility Treatment Duration: Feb 10, 2021 Frequency: 5 times per week Estimated Hrs Per Day: [address] IPOC Speech Therapy Treatment Plan: Modify Plan, See Comments Treatment Duration: Feb 10, 2021 Frequency: Modified Program (IRF) Estimated Hrs Per Day: Other [employer]/Case Mgmt [employer]/Case Managemen: Discharge Planning Dietitian/Sap Portal Consultant Dietitian/Sap Portal Consultant to monitor nutritional status and make changes and/or recommendations as needed and work with speech pathology on dietary upgrades as the occur. Physician IPOC Medical Issues being managed closely and that require the 24 hour availability of a physician: Recent critical illness will require close monitoring for respiratory compromise and close supervision for falls and declined status Medical Issues: Bowel/Bladder Function, DVT Prophylaxis, Falls Precautions, Fluid/Electrolyte/Nutrition Balance, Infection Protection, Pain Management Brief Synthesis of Preadmission Screen, Post-Admission Evaluation, and Therapy Evaluations: PT OT will focus on regaining strength and improve mobility and increase ADL independence in order to return to independent living Medical Prognosis: Good Anticipated Length of Stay: 7 days MARY LAMBERT DO Feb 11, 2021 11:52
--- NOTE | 2021-02-11 13:26 | Cardiology Progress Note ---
Cardiology SOAP Progress Note Subjective: No cardiac complaints. Objective: I&O/Vital Signs 02/11/21 02/11/21 02/11/21 02/11/21 06:59 07:00 07:19 09:03 Temp 36.6 Pulse 77 80 Resp 22 B/P (MAP) 133/65 (87) Pulse Ox 93 87 O2 Delivery High Flow N/C High Flow N/C Nasal Cannula O2 Flow Rate 2.00 2.00 2.00 02/11/21 10:44 Pulse Ox 92 O2 Delivery High Flow N/C O2 Flow Rate 2.00 Weight (Pounds): 140 Weight (Ounces): 0.0 Weight (Calculated Kilograms): 63.796150 Constitutional: AAO x 3 Respiratory: chest is bilaterally symmetric, lungs clear to auscultation Cardiovascular: regular rate-rhythm, S1 and S2 Gastrointestional: soft, audible bowel sounds Extremities: no lower extremity edema bilateral Neurologic/Psychiatric: no motor/sensory deficits, alert, normal mood/affect, oriented x 3 Skin: normal color Results/Procedures: Labs Laboratory Tests 02/10/21 15:48: Glucometer 179H 02/10/21 20:34: Glucometer 142H 02/11/21 04:45: White Blood Count 11.7H, Red Blood Count 3.20L, Hemoglobin 8.6L, Hematocrit 27L, Mean Corpuscular Volume 85, Mean Corpuscular Hemoglobin 27, Mean Corpuscular Hemoglobin Concent 32, Red Cell Distribution Width 17.6H, Platelet Count 377, Mean Platelet Volume 9.7, Immature Granulocyte % (Auto) 1, Neutrophils (%) (Auto) 77H, Lymphocytes (%) (Auto) 13, Monocytes (%) (Auto) 9, Eosinophils (%) (Auto) 1, Basophils (%) (Auto) 0, Neutrophils # (Auto) 9.1H, Lymphocytes # (Auto) 1.5, Monocytes # (Auto) 1.0, Eosinophils # (Auto) 0.1, Basophils # (Auto) 0.0, Immature Granulocyte # (Auto) 0.1, Sodium Level 135, Potassium Level 3.5L, Chloride Level 98, Carbon Dioxide Level 26, Anion Gap 11, Blood Urea Nitrogen 20H, Creatinine 0.84, Estimat Glomerular Filtration Rate > 60, BUN/Creatinine Ratio 24, Glucose Level 75, Calcium Level 8.2L, Corrected Calcium 9.2, Total Bilirubin 0.4, Aspartate Amino Transf (AST/SGOT) 40H, Alanine Aminotransferase (ALT/SGPT) 68H, Alkaline Phosphatase 64, Total Protein 5.5L, Albumin 2.8L 02/11/21 10:45: Glucometer 125H A/P: Assessment/Dx: Inpatient rehabilitation PNA COPD PAF Generalized weakness Plan: Status post acute respiratory failure, maintained on 02, significantly improved. Managed by Dr. Rocha Paroxysmal atrial fibrillation/flutter, went back in atrial fibrillation with rapid ventricular response, I started him on diltiazem drip and he was unable to tolerate it due to hypotension. He has been maintained on amiodarone 200 mg daily, Started on digoxin, s/p cardioversion. Currently in sinus rhythm. Pneumonia, receiving antibiotics, followed and managed by primary team Diarrhea, had stool for C. difficile negative. Managed by medical team Paroxysmal atrial fibrillation/flutter, was on diltiazem as an outpatient, currently off diltiazem, maintained on Eliquis Generalized weakness and debility with orthostatic hypotension, family are concerned about his orthostatic hypotension and weakness. Initially he has improved after stopping Toprol and losartan. Currently off Lipitor. [id number] score of 6, yearly risk of stroke without oral anticoagulation is 9.8 percent. 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 Anemia, continue to monitor. History of chest pain, last stress test done in November 2017 showing no ischemia or infarction. History of syncope, tilt table test showed severe dizziness and hypotension back in February 2013. Continues to have dizziness, denies any recent syncope. Hypertension, currently hypertensive, family and patient concerned about orthostatic hypotension, however due to high blood pressure last night, we started low-dose of Cardizem. Blood pressure is much stable now. Hyperlipidemia, statin held by Dr. Hobson. Diabetes mellitus, followed and managed by primary care physician History of moderate bilateral carotid stenosis, last ultrasound done in December 2020. Continue to monitor History of dysphagia with Zenker diverticulum, had Zenker diverticular surgery Thank you for your consultation. Please call me if you have any questions. Itz Nuñez MD, FACP, FACC, FSCAI, FHRS, CCDS Interventional Cardiology Cardiac Electrophysiology Vascular Medicine and Endovascular Interventions Lise NUÑEZ MD Feb 11, 2021 13:26
[2021-02-11] MEDS: TAMSULOSIN 0.4 MG (FLOMAX) CAP PO SCH (18:03)
[2021-02-11 19:23] VITALS: BP 180/77
[2021-02-11 20:54] VITALS: BP 173/66
[2021-02-12] MEDS: inSUlin ASPART (NovoLOG) 1 UNIT/0.01 ML (CHARGE PER UNIT) SC SCH (06:16)
[2021-02-12] MEDS: predniSONE 20 MG TAB PO SCH (06:17)
[2021-02-12] MEDS: RT-ALBUTEROL/IPRATROPIUM 3 ML (DUONEB) VIAL INH SCH ×3 (06:57→18:27)
[2021-02-12 08:00] VITALS: BP 139/62
--- NOTE | 2021-02-12 08:33 | PM&R Progress Note ---
Subjective HPI/CC On Admission Date Seen by Provider: Feb 12, 2021 Time Seen by Provider: 08:45 Subjective/Events-last exam 02/12/21: Pt doing a lot better Will discontinue Acu-check since 3 units of insulin made him go really low BP is elevated today 02/11/21: Patient is doing well and daughter at the bedside Feels good Lungs sound good Completed abx WBC 11.7 hgb 8.[address] BM yesterday Review of Systems General: Fatigue, Malaise Pulmonary: Dyspnea, Cough Neurological: Weakness Objective Exam Vital Signs Vital Signs Date Time Temp Pulse Resp B/P (MAP) Pulse Ox O2 Delivery O2 Flow Rate FiO2 02/13/21 01:00 64 02/12/21 23:59 36.3 95 02/12/21 20:52 20 171/75 (107) High Flow N/C 5.00 Capillary Refill : General Appearance: No Apparent Distress, WD/WN, Chronically ill, Thin HEENT: PERRL/EOMI, Normal ENT Inspection, Pharynx Normal Neck: Full Range of Motion, Normal Inspection, Non Tender, Supple, Carotid Bruit Respiratory: Chest Non Tender, No Accessory Muscle Use, No Respiratory Distress, Crackles, Decreased Breath Sounds Cardiovascular: Regular Rate, Rhythm, No Edema, No Gallop, No JVD, No Murmur, Normal Peripheral Pulses Gastrointestinal: Normal Bowel Sounds, No Organomegaly, No Pulsatile Mass, Non Tender, Soft Back: Normal Inspection, No CVA Tenderness, No Vertebral Tenderness Extremity: Normal Capillary Refill, Normal Inspection, Normal Range of Motion, Non Tender, No Calf Tenderness, No Pedal Edema Neurologic/Psychiatric: Alert, Oriented x3, No Motor/Sensory 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 FIM Transfers Therapy Code Descriptions/Definitions Functional [place] Measure: 0=Not Assessed/NA 4=Minimal Assistance 1=Total Assistance 5=Supervision or Setup 2=Maximal Assistance 6=Modified [place] 3=Moderate Assistance 7=Complete IndependenceSCALE: Activities may be completed with or without assistive devices. 7-Amovxcvpmr-icwlwol completes the activity by him/herself with no assistance from a helper. 5-Set-up or Clean-up Assistance-helper sets up or cleans up; patient completes activity. [place] assists only prior to or following the activity. 4-Supervision or Touching Assistance-helper provides verbal cues and/or touching/steadying and/or contact guard assistance as patient completes activity. Assistance may be provided throughout the activity or intermittently. 3-Partial/Moderate Assistance-helper does LESS THAN HALF the effort. [place] lifts, holds or supports trunk or limbs, but provides less than half the effort. 2-Substantial/Maximal Assistance-helper does MORE THAN HALF the effort. [place] lifts or holds trunk or limbs and provides more than half the effort. 4-Bxhqykbdq-tsoxpj does ALL the effort. Patient does none of the effort to complete the activity. Or, the assistance of 2 or more helpers is required for the patient to complete the activity. If activity was not attempted, code reason: 7-Patient Refused. 9-Not Applicable-not attempted and the patient did not perform the activity before the current illness, exacerbation or injury. 10-Not Attempted due to Environmental Limitations-(lack of equipment, weather restraints, etc.). 88-Not Attempted due to Medical Conditions or Safety Concerns. Roll Left to Right (QC): 5 Sit to Lying (QC): 5 Sit to Stand (QC): 5 Chair/Vhz-tx-Ldykq Xfer(QC): 5 Car Transfer (QC): 5 Gait Training Does the Patient Walk?: Yes Walk 10 feet (QC): 5 Walk 50 ft with 2 Turns(QC): 5 Walk 150 ft (QC): 88 Walking 10ft/uneven surface-QC: 5 Gait Assistive Device: FWW Wheelchair Training Does the Pt Use a Wheelchair?: No Wheel 50 ft with 2 turns (QC): 9 Wheel 150 ft (QC): 9 Stair Training #of Steps: 1 1 Step (curb) (QC): 5 4 Steps (QC): 88 12 Steps (QC): 88 Balance Picking up an Object (QC): 88 Assessment/Plan Assessment and Plan Assess & Plan/Chief Complaint Assessment: COPD myopathy Acute on chronic hypoxic respiratory failure AECOPD Severe COPD at baseline pAF HTN Orthostatic hypotension DM BPH Plan: IRF protocol Nebs O2 COmpleted abx Monitor labs 02/11/21: Monitor closely O2 maintained nebs 02/12/21: Monitor lung status Nebs O2 (1) Myopathy (2) Atrial fibrillation with RVR Status: Acute (3) T2DM (type 2 diabetes mellitus) Status: Chronic (4) Acute and chronic respiratory failure with hypoxia Status: Acute (5) Orthostatic hypotension Status: Acute (6) COPD with exacerbation Status: Acute (7) General weakness Status: Acute (8) Dyspnea MARY LAMBERT DO Feb 12, 2021 08:33
--- NOTE | 2021-02-12 08:51 | ST Cognitive Linguistic Eval ---
Speech Evaluation-General Medical Diagnosis COPD exacerbation, myopathy, weaknes Onset Date: Feb 10, 2021 Therapy Diagnosis Therapy Diagnosis: Cognitive-communication Precautions Precautions: Cardiac Precautions/Isolations: Standard Precautions Referral Referring Physician: Dr. Harrison Medical History Pertinent Medical History: Atrial Fib, Arthritis, CAD, COPD, DM, GERD, HTN Reviewed History: Yes Social History Current Living Status: Significant Other Speech PLF-Current Status Prior Level of Function Patient lives at home with his where he is assisted with his daily needs as needed. Subjective Pt was alert and pleasant. Pt agreed to ST evaluation. Language Eval: Auditory Comprehends Simple Yes/No Ques: Functional Indent/Objects [place]: Functional Ident/Pics in [place]: Functional Follows 1-Step Commands: Functional Follows Complex Directions: Functional Follows General Conversations: Functional Language Eval: Verbal Language Completes Spontaneous Greeting: Functional Produces Auto, Serial Info: Functional Imitates Simple Words/Phrases: Functional Word Finding: Functional Requests Basic Needs: Functional States Basic Personal Info: Functional Expresses Complex Ideas: Functional Language Evaluation: Reading Comprehends Single Nouns: Functional Follows Simple Written Direct: Functional Comprehends Multiple Sentences: Functional Objective Cognitive Domain Attention: WNL Memory: WNL Problem Solving: Functional Executive Functions: WNL Visuospatial Skills: WNL Composite Severity Rating: WNL Objective Formal/Standardized Tests [facility] Mental Status Examination (UMS) Results Oral Motor/Speech Production Within normal limits. Impression Pt is a pleasant 85 y/o man who was admitted to the ARU s/p heart problems, specifically with his a-fib. Pt was evaluated by ST using the SLUMS and scored within normal limits for cognitive functioning. ST services are not recommended. Speech Patient Assess Expression of Ideas/Wants: Expression (4) Understanding Verbal Content: Understands (4) Brief Interview-Mental Status: Yes Repetition of Three Words: Three (3) Temporal Orientation: Year: Correct (3) Temporal Orientation: Month: Accurate within 5 days(2) Temporal Orientation: Day: Correct (1) Recall : Wear to say "Sock": Yes, no cue required (2) Recall : Color: Yes, no cue required (2) Recall : Bed: Yes, no cue required (2) Memory/Recall Ability: Current season, That he or she is in a hsp/hsp unit Speech-Plan Patient/Family Goals Patient/Family Goals: Pt plans to return home with his after D/C from ARU. Treatment Plan Speech Therapy Treatment Plan: Discontinue ST Treatment Duration: Feb 12, 2021 Frequency: 1 time per week Estimated Hrs Per Day: .5 hour per day Rehab Potential: Good Barriers to Learning: Medical status and age. Pt/Family Agrees to Plan: Yes Safety Risks/Education Teaching Recipient: Patient Teaching Methods: Discussion Response to Teaching: Verbalize Understanding, Return Demonstration Education Topics Provided: Safety and cognition Time Speech Therapy Time In: 08:30 Speech Therapy Time Out: 09:00 Total Billed Time: 30 Billed Treatment Time 1, SPSNDCOMP MITA Harrington Feb 12, 2021 08:51
[2021-02-12] MEDS: DOCUSATE SODIUM 100 MG (COLACE) CAP PO SCH ×2 (09:40→20:54)
[2021-02-12] MEDS: SENNA W/DOCUSATE (SENOKOT S) TABLET PO SCH ×2 (09:40→20:55)
[2021-02-12] MEDS: polyethylene glycoL POWDER 17 GM (MIRALAX) PACK PO SCH ×2 (09:40→20:54)
[2021-02-12] MEDS: dilTIAZem120 MG (CARDIZEM CD) CAP PO SCH (09:42)
[2021-02-12] MEDS: LACTOBACILLUS ACIDOPHILUS (PROBIOTIC) CAPSULE PO SCH ×3 (09:42→18:19)
[2021-02-12] MEDS: DIGOXIN 0.125 MG (LANOXIN) TAB PO SCH (09:42)
[2021-02-12] MEDS: FUROSEMIDE 40 MG (LASIX) TAB PO SCH (09:42)
[2021-02-12] MEDS: AMIODARONE 200 MG (CORDARONE) TAB PO SCH (09:42)
[2021-02-12] MEDS: APIXABAN 2.5 MG (ELIQUIS) TABLET PO SCH ×2 (09:42→20:53)
--- NOTE | 2021-02-12 10:23 | Occupational Therapy Eval ---
OT Evaluation-General/PLF Medical Diagnosis Admission Date Feb 10, 2021 at 09:37 Medical Diagnosis: COPD exacerbation, myopathy, weaknes Onset Date: Jan 31, 2021 Therapy Diagnosis Therapy Diagnosis: Decreased ADL skills Height/Weight Height (Feet): 5 Height (Inches): 7.00 Weight (Pounds): 140 Weight (Ounces): 0.0 Precautions Precautions/Isolations: Standard Precautions Weight Bear Status Weight Bearing Restriction: Weight Bearing/Tolerated Referral Physician: Dr Harrison Referral Reason: Activity Tolerance, Self Care, Evaluation/Treatment, Strengt hening/ROM Medical History Pertinent Medical History: Atrial Fib, Arthritis, CAD, COPD, DM, GERD, HTN Current History Pt. has had multiple hospitalizations recently. Pt. has been on rehab before. Reviewed History: Yes Social History Home: Single Level Current Living Status: Significant Other Entry Into Home: Stairs With Railing Steps Into Home: 3 Steps Inside Home: 0 Family to put in ramp. ADL-Prior Level of Function SCALE: Activities may be completed with or without assistive devices. 5-Yeopqzwayf-vnntrys completes the activity by him/herself with no assistance from a helper. 5-Set-up or Clean-up Assistance-helper sets up or cleans up; patient completes activity. [place] assists only prior to or following the activity. 4-Supervision or Touching Assistance-helper provides verbal cues and/or touching/steadying and/or contact guard assistance as patient completes activity. Assistance may be provided throughout the activity or intermittently. 3-Partial/Moderate Assistance-helper does LESS THAN HALF the effort. [place] li fts, holds or supports trunk or limbs, but provides less than half the effort. 2-Substantial/Maximal Assistance-helper does MORE THAN HALF the effort. [place] lifts or holds trunk or limbs and provides more than half the effort. 7-Umtruuobi-uevbww does ALL the effort. Patient does none of the effort to complete the activity. Or, the assistance of 2 or more helpers is required for the patient to complete the activity. If activity was not attempted, code reason: 7-Patient Refused. 9-Not Applicable-not attempted and the patient did not perform the activity before the current illness, exacerbation or injury. 10-Not Attempted due to Environmental Limitations-(lack of equipment, weather restraints, etc.). 88-Not Attempted due to Medical Conditions or Safety Concerns. ADL PLOF Comments Pt. was independent with most tasks prior to recent medical issues. He uses AE at home for LE dressing due to a "bad back." Pt. reports that his spouse does all the cooking and cleaning at home. Self Care: Needed Some Help Functional Cognition: Independent DME/Equipment: Bath Chair, Bedside Commode, Shower DME/Equipment Comments Pt. reports that he has a walker and wheelchair. Drive Self: No OT Current Status Subjective No pain reported. Appearance Pt. alert and oriented. Agrees to work with OT. Mental Status/Objective Patient Orientation: Person, Place, Time, Situation Attachments: Oxygen Current Glasses/Contacts: Yes Dentures/Partials: Yes Hand Dominance: Right Upper Extremity ROM WFL Upper Extremity Strength 3+/5 ADL-Treatment Eating (QC): 5 Oral Hygiene (QC): 3 (Min assist to brush dentures efficiently.) Shower/Bathe Self (QC): 3 (Mod assist to wash bilateral feet. Pt. does not feel strong enough to shower.) Upper Body Dressing (QC): 4 (SBA) Lower Body Dressing (QC): 2 (Max assist. Pt. uses AE at home. Otherwise, his spouse assists with this.) On/Off Footwear (QC): 2 Toileting Hygiene (QC): 3 (Min assist to stand and pull up pants over hips.) Other Treatments Pt. on 4.5 L 02 when OT comes into room. Pt. declines showering this date, but agrees to sponge bathe. Pt. requires frequent rest breaks in between each task. Pt.'s oxygen monitored throughout, and after using bathroom, dropped to 77%. With increased time, oxygen sats come back to 92%. Pt. remains on 4.5 L at this time. Pt. up in chair at end of session. All needs met. Education OT Patient Education: Correct positioning, Modified ADL techniques, Progress toward Goal/Update tx plan, Purpose of tx/functional activities, Reviewed precautions, Rehab process, Transfer techniques Teaching Recipient: Patient Teaching Methods: Demonstration, Discussion Response to Teaching: Verbalize Understanding, Return Demonstration OT Short Term Goals Short Term Goals Time Frame: Feb 19, 2021 Eatin Oral hygiene: 4 Toileting hygiene: 4 Shower/bathe self: 3 Upper body dressin Lower body dressin (with AE) Putting on/taking off footwear: 3 (With AE) OT Construction Worker Goals Custodial Goals Time Frame: March 05, 2021 Eating (QC): 6 Oral Hygiene (QC): 5 Toileting Hygiene (QC): 5 Shower/Bathe Self (QC): 4 Upper Body Dressing (QC): 5 Lower Body Dressing (QC): 4 On/Off Footwear (QC): 4 Additional Goals: 1-Demonstrate ADL Tasks, 2-Verbalize Understanding, 3- ImproveStrength/Jennifer 1=Demonstrate adherence to instructed precautions during ADL tasks. 2=Patient will verbalize/demonstrate understanding of assistive devices/modif ications for ADL. 3=Patient will improve strength/tolerance for activity to enable patient to perform ADL's. OT Education/Plan Problem List/Assessment Assessment: Decreased Activ Tolerance, Decreased UE Strength, Dependent Transfers, Impaired Funct Balance, Impaired I ADL's, Impaired Self-Care Skills Discharge Recommendations Plan/Recommendations: Continue POC Therapy Discharge Recommendati: Post Acute OT Treatment Plan/Plan of Care Treatment,Training & Education: Yes Patient would benefit from OT for education, treatment and training to promote independence in ADL's, mobility, safety and/or upper extremity function for ADL' s. Plan of Care: ADL Retraining, Concurrent Therapy, Functional Mobility Treatment Duration: Feb 10, 2021 Frequency: 5 times per week Estimated Hrs Per Day: 1 hour per day Agreement: Yes Rehab Potential: Fair Time/GCodes Start Time: 09:15 Stop Time: 10:30 Total Time Billed (hr/min): 75 Billed Treatment Time 1, EVM x 15minutes, ADL x 60minutes CLAUDIA KERNS OT Feb 12, 2021 10:22
--- NOTE | 2021-02-12 12:02 | Physical Therapy Daily Note ---
PT Daily Note-Current Subjective Pt demonstrated SOB after amb 50 ft. and need a rest break. Pt reports he is feeling SOB after 5 min on nustep. Reports dizziness after sit-stand which subsides within a minute. Pain Location: No Pain Reported Mental Status Patient Orientation: Person, Place, Time, Situation, Normal For Age Attachments: Oxygen, Other-See Comments (mask while out of room) Transfers SCALE: Activities may be completed with or without assistive devices. 9-Gopmsimksr-lqtruom completes the activity by him/herself with no assistance from a helper. 5-Set-up or Clean-up Assistance-helper sets up or cleans up; patient completes activity. [place] assists only prior to or following the activity. 4-Supervision or Touching Assistance-helper provides verbal cues and/or touching/steadying and/or contact guard assistance as patient completes activity. Assistance may be provided throughout the activity or intermittently. 3-Partial/Moderate Assistance-helper does LESS THAN HALF the effort. [place] lifts, holds or supports trunk or limbs, but provides less than half the effort. 2-Substantial/Maximal Assistance-helper does MORE THAN HALF the effort. [place] lifts or holds trunk or limbs and provides more than half the effort. 3-Iynnheefn-mtfows does ALL the effort. Patient does none of the effort to complete the activity. Or, the assistance of 2 or more helpers is required for the patient to complete the activity. If activity was not attempted, code reason: 7-Patient Refused. 9-Not Applicable-not attempted and the patient did not perform the activity before the current illness, exacerbation or injury. 10-Not Attempted due to Environmental Limitations-(lack of equipment, weather restraints, etc.). 88-Not Attempted due to Medical Conditions or Safety Concerns. Sit to Stand (QC): 4 Gait Training Does the Patient Walk?: Yes Distance: 50ftx2, 35ftx2 Walk 10 feet (QC): 5 Walk 50 ft with 2 Turns(QC): 4 Gait Persons Needed: 1 Gait Assistive Device: FWW Pt. states he uses extended O2 tubing at home and has done fine with this. Pt. does however need guidance and instruction today for safe use of O2 tubing during gait Exercises Supine Ex: Ankle pumps, Straight leg raise, Hip abd/add Supine Reps: 12 Seated Therapy Exercises: Ankle pumps, Sit to stand, Long arc quads, Hip flexion, Hamstring Curls Seated Reps: 12 NuStep Minutes: 7 NuStep Workload: 3 Treatments Pt in recliner upon arrival, performed supine exs in recliner and took BP(138/63), O2(95%) and HR 70. Sit-stand TF and amb 50 ft and then pt needed rest break at chairs. Sit-stand and amb to therapy gym and TF to nustep and O2 92% and HR 76. Nustep for 3 min and then need rest break and O2 95% and HR 75 after rest break pt went on nustep until 6 min. Pt needed another rest break and then finished out last minute on nustep. Pt amb 35 ft and took rest break at chairs and performed seated exs. Then amb back to room and HR 73, O2 94% and respirations 40 a minute. Pt in recliner call light in hand all needs met. Assessment Current Status: Good Progress Pt needed frequent rest breaks and displayed SOB after activity. Educated pt about how to don nasal cannula. Gave skilled verbal cues and CGA while performing sit-stand TFs. Pt amb slowly and w/ shortened step length. PT Fci Goals Electronics Computer Mechanic Goals PT Electronics Computer Mechanic Goals Time Frame: February 24, 2021 Roll Left & Right (QC): 6 Sit to Lying (QC): 6 Lying-Sitting on Side/Bed(QC): 6 Sit to Stand (QC): 6 Chair/Ght-xz-Icsoo Xfer(QC): 6 Toilet Transfer (QC): 6 Car Transfer (QC): 6 Does the Patient Walk: Yes Walk 10 feet (QC): 6 Walk 50ft with 2 Turns (QC): 6 Walk 150 ft (QC): 6 Walking 10ft on Uneven Surface: 6 1 Step (curb) (QC): 6 4 Steps (QC): 6 12 Steps (QC): 5 Picking up an Object (QC): 6 Does the Pt use WC or Scooter?: No Wheel 50 feet with 2 turns (QC: 9 Wheel 150 feet: 9 PT Plan Problem List Problem List: Activity Tolerance, Functional Strength Treatment/Plan Treatment Plan: Continue Plan of Care Treatment Plan: Bed Mobility, Concurrent Therapy, Functional Activity Jennifer, Functional Strength, Group Therapy, Gait, Safety, Therapeutic Exercise, Transfers Treatment Duration: February 24, 2021 Frequency: At least 5 of 7 days/Wk (IRF) Estimated Hrs Per Day: 1.5 hours per day Patient and/or Family Agrees t: Yes Safety Risks/Education Patient Education: Transfer Techniques, Correct Positioning, Safety Issues Teaching Recipient: Patient Teaching Methods: Demonstration, Discussion Response to Teaching: Verbalize Understanding, Return Demonstration Time/GCodes Time In: 1100 Time Out: 1200 Total Billed Treatment Time: 60 Total Billed Treatment 1, GT, EX x 3 BRIDGER LUCAS NUT CRACKER Feb 12, 2021 12:02
--- NOTE | 2021-02-12 14:55 | Physical Therapy Daily Note ---
PT Daily Note-Current Subjective Pt in recliner upon arrival and agrees to doing exs in room. Pt demonstrates SOB so after each exercise pt was provided prolonged rest breaks. Pain Location: No Pain Reported Mental Status Patient Orientation: Person, Place, Time, Situation, Normal For Age Attachments: Oxygen (4.5L) Transfers SCALE: Activities may be completed with or without assistive devices. 8-Msixiuldfs-wfvppnf completes the activity by him/herself with no assistance from a helper. 5-Set-up or Clean-up Assistance-helper sets up or cleans up; patient completes activity. [place] assists only prior to or following the activity. 4-Supervision or Touching Assistance-helper provides verbal cues and/or touching/steadying and/or contact guard assistance as patient completes activity. Assistance may be provided throughout the activity or intermittently. 3-Partial/Moderate Assistance-helper does LESS THAN HALF the effort. [place] lifts, holds or supports trunk or limbs, but provides less than half the effort. 2-Substantial/Maximal Assistance-helper does MORE THAN HALF the effort. [place] l ifts or holds trunk or limbs and provides more than half the effort. 9-Zlgromapl-ylbvla does ALL the effort. Patient does none of the effort to complete the activity. Or, the assistance of 2 or more helpers is required for the patient to complete the activity. If activity was not attempted, code reason: 7-Patient Refused. 9-Not Applicable-not attempted and the patient did not perform the activity before the current illness, exacerbation or injury. 10-Not Attempted due to Environmental Limitations-(lack of equipment, weather restraints, etc.). 88-Not Attempted due to Medical Conditions or Safety Concerns. Exercises Supine Ex: Ankle pumps, Quad Set, Glut sets, Straight leg raise Supine Reps: 15 Seated Therapy Exercises: Ankle pumps (performed 2 sets for this ex), Long arc quads, Hip flexion Seated Reps: 15 Treatments Pt agreed to exs in room and performed all supine exs and then performed seated exs. Assessment Current Status: Good Progress Pt LLE is weaker than RLE and during SLRs pt struggled to maintain leg completely straight. Therapist provided cues to pt to remind him to keep leg straight during this ex and pt reported L leg is weaker so it's more difficult. Provided prolonged rest breaks to help with patients SOB. LENDING MANAGER reinforced pt to maintain isometric hold for a second on LAQs. Pt in recliner call light in hand and all needs met. PT Rumper Goals Rumper Goals PT Rumper Goals Time Frame: February 24, 2021 Roll Left & Right (QC): 6 Sit to Lying (QC): 6 Lying-Sitting on Side/Bed(QC): 6 Sit to Stand (QC): 6 Chair/Ybn-fi-Oqoxi Xfer(QC): 6 Toilet Transfer (QC): 6 Car Transfer (QC): 6 Does the Patient Walk: Yes Walk 10 feet (QC): 6 Walk 50ft with 2 Turns (QC): 6 Walk 150 ft (QC): 6 Walking 10ft on Uneven Surface: 6 1 Step (curb) (QC): 6 4 Steps (QC): 6 12 Steps (QC): 5 Picking up an Object (QC): 6 Does the Pt use WC or Scooter?: No Wheel 50 feet with 2 turns (QC: 9 Wheel 150 feet: 9 PT Plan Problem List Problem List: Activity Tolerance, Functional Strength Treatment/Plan Treatment Plan: Continue Plan of Care Treatment Plan: Bed Mobility, Concurrent Therapy, Functional Activity Jennifer, Functional Strength, Group Therapy, Gait, Safety, Therapeutic Exercise, Transfers Treatment Duration: February 24, 2021 Frequency: At least 5 of 7 days/Wk (IRF) Estimated Hrs Per Day: 1.5 hours per day Patient and/or Family Agrees t: Yes Safety Risks/Education Patient Education: Correct Positioning Teaching Recipient: Patient Teaching Methods: Demonstration, Discussion Response to Teaching: Verbalize Understanding, Return Demonstration Time/GCodes Time In: 1415 Time Out: 1430 Total Billed Treatment Time: 15 Total Billed Treatment 1, EX BRIDGER LUCAS LENDING MANAGER Feb 12, 2021 14:55
[2021-02-12] MEDS: TAMSULOSIN 0.4 MG (FLOMAX) CAP PO SCH (18:19)
[2021-02-12 20:52] VITALS: BP 171/75
[2021-02-12 23:59] VITALS: BP 171/75
[2021-02-13] MEDS: predniSONE 20 MG TAB PO SCH (07:05)
[2021-02-13] MEDS: RT-ALBUTEROL/IPRATROPIUM 3 ML (DUONEB) VIAL INH SCH ×4 (07:39→18:08)
[2021-02-13 08:00] VITALS: BP 132/61
[2021-02-13] MEDS: dilTIAZem120 MG (CARDIZEM CD) CAP PO SCH (08:44)
[2021-02-13] MEDS: LACTOBACILLUS ACIDOPHILUS (PROBIOTIC) CAPSULE PO SCH ×3 (08:44→18:30)
[2021-02-13] MEDS: APIXABAN 2.5 MG (ELIQUIS) TABLET PO SCH ×2 (08:44→20:02)
[2021-02-13] MEDS: FUROSEMIDE 40 MG (LASIX) TAB PO SCH (08:44)
[2021-02-13] MEDS: DIGOXIN 0.125 MG (LANOXIN) TAB PO SCH (08:45)
[2021-02-13] MEDS: SENNA W/DOCUSATE (SENOKOT S) TABLET PO SCH ×2 (08:45→20:02)
[2021-02-13] MEDS: polyethylene glycoL POWDER 17 GM (MIRALAX) PACK PO SCH ×2 (08:45→21:00)
[2021-02-13] MEDS: DOCUSATE SODIUM 100 MG (COLACE) CAP PO SCH ×2 (08:45→20:02)
[2021-02-13] MEDS: AMIODARONE 200 MG (CORDARONE) TAB PO SCH (08:45)
--- NOTE | 2021-02-13 08:54 | PM&R Progress Note ---
Subjective HPI/CC On Admission Date Seen by Provider: Feb 13, 2021 Time Seen by Provider: 09:00 Subjective/Events-last exam 02/13/21: Pt cranky and having difficulty getting what he likes for breakfast Remains on 5 liters of O2 Bowels are moving BP better today at 134/67 02/12/21: Pt doing a lot better Will discontinue Acu-check since 3 units of insulin made him go really low BP is elevated today 02/11/21: Patient is doing well and daughter at the bedside Feels good Lungs sound good Completed abx WBC 11.7 hgb 8.[address] BM yesterday Review of Systems General: Fatigue Pulmonary: Dyspnea, Cough Neurological: Weakness Objective Exam Vital Signs Vital Signs Date Time Temp Pulse Resp B/P (MAP) Pulse Ox O2 Delivery O2 Flow Rate FiO2 02/14/21 01:00 60 02/13/21 21:00 High Flow N/C 5.00 02/13/21 20:00 37.2 20 159/72 (101) 94 Capillary Refill : General Appearance: No Apparent Distress, WD/WN, Chronically ill, Thin HEENT: PERRL/EOMI, Normal ENT Inspection, Pharynx Normal Neck: Full Range of Motion, Normal Inspection, Non Tender, Supple, Carotid Bruit Respiratory: Chest Non Tender, No Accessory Muscle Use, No Respiratory Distress, Crackles, Decreased Breath Sounds Cardiovascular: Regular Rate, Rhythm, No Edema, No Gallop, No JVD, No Murmur, Normal Peripheral Pulses Gastrointestinal: Normal Bowel Sounds, No Organomegaly, No Pulsatile Mass, Non Tender, Soft Back: Normal Inspection, No CVA Tenderness, No Vertebral Tenderness Extremity: Normal Capillary Refill, Normal Inspection, Normal Range of Motion, Non Tender, No Calf Tenderness, No Pedal Edema Neurologic/Psychiatric: Alert, Oriented x3, No Motor/Sensory Deficits, veterinary science teacher II- XII Norm as Tested, Abnormal Gait, Depressed Affect, Motor Weakness (lower extremities 4/5) Skin: Normal Color, Warm/Dry Lymphatic: No Adenopathy Results/Procedures Lab Patient resulted labs reviewed. FIM Transfers Therapy Code Descriptions/Definitions Functional [place] Measure: 0=Not Assessed/NA 4=Minimal Assistance 1=Total Assistance 5=Supervision or Setup 2=Maximal Assistance 6=Modified [place] 3=Moderate Assistance 7=Complete IndependenceSCALE: Activities may be completed with or without assistive devices. 5-Buvouzcrfm-lmcibiv completes the activity by him/herself with no assistance from a helper. 5-Set-up or Clean-up Assistance-helper sets up or cleans up; patient completes activity. [place] assists only prior to or following the activity. 4-Supervision or Touching Assistance-helper provides verbal cues and/or touching/steadying and/or contact guard assistance as patient completes activity. Assistance may be provided throughout the activity or intermittently. 3-Partial/Moderate Assistance-helper does LESS THAN HALF the effort. [place] lifts, holds or supports trunk or limbs, but provides less than half the effort. 2-Substantial/Maximal Assistance-helper does MORE THAN HALF the effort. [place] lifts or holds trunk or limbs and provides more than half the effort. 6-Ceecsdlkm-bbgyvt does ALL the effort. Patient does none of the effort to complete the activity. Or, the assistance of 2 or more helpers is required for the patient to complete the activity. If activity was not attempted, code reason: 7-Patient Refused. 9-Not Applicable-not attempted and the patient did not perform the activity before the current illness, exacerbation or injury. 10-Not Attempted due to Environmental Limitations-(lack of equipment, weather restraints, etc.). 88-Not Attempted due to Medical Conditions or Safety Concerns. Roll Left to Right (QC): 5 Sit to Lying (QC): 5 Sit to Stand (QC): 4 Chair/Yzu-lc-Pmwmn Xfer(QC): 5 Car Transfer (QC): 5 Gait Training Does the Patient Walk?: Yes Distance: 50ftx2, 35ftx2 Walk 10 feet (QC): 5 Walk 50 ft with 2 Turns(QC): 4 Walk 150 ft (QC): 88 Walking 10ft/uneven surface-QC: 5 Gait Persons Needed: 1 Gait Assistive Device: FWW Wheelchair Training Does the Pt Use a Wheelchair?: No Wheel 50 ft with 2 turns (QC): 9 Wheel 150 ft (QC): 9 Stair Training #of Steps: 1 1 Step (curb) (QC): 5 4 Steps (QC): 88 12 Steps (QC): 88 Balance Picking up an Object (QC): 88 ADL-Treatment Eating (QC): 5 Oral Hygiene (QC): 3 (Min assist to brush dentures efficiently.) Shower/Bathe Self (QC): 3 (Mod assist to wash bilateral feet. Pt. does not fee l strong enough to shower.) Upper Body Dressing (QC): 4 (SBA) Lower Body Dressing (QC): 2 (Max assist. Pt. uses AE at home. Otherwise, his spouse assists with this.) On/Off Footwear (QC): 2 Toileting Hygiene (QC): 3 (Min assist to stand and pull up pants over hips.) Assessment/Plan Assessment and Plan Assess & Plan/Chief Complaint Assessment: COPD myopathy Acute on chronic hypoxic respiratory failure AECOPD Severe COPD at baseline pAF HTN Orthostatic hypotension DM BPH Plan: IRF protocol Nebs O2 COmpleted abx Monitor labs 02/11/21: Monitor closely O2 maintained nebs 02/12/21: Monitor lung status Nebs O2 02/13/21: Monitor lungs Monitor BP Fall risk (1) Myopathy (2) Atrial fibrillation with RVR Status: Acute (3) T2DM (type 2 diabetes mellitus) Status: Chronic (4) Acute and chronic respiratory failure with hypoxia Status: Acute (5) Orthostatic hypotension Status: Acute (6) COPD with exacerbation Status: Acute (7) General weakness Status: Acute (8) Dyspnea MARY LAMBERT DO Feb 13, 2021 08:54
--- NOTE | 2021-02-13 10:02 | Occupational Ther Daily Note ---
OT Current Status-Daily Note Subjective Pt alert, lying in bed. Pt agrees to therapy. No c/o pain, only fatigue. Pt taking frequent breaks due to fatigue and SOA. Mental Status/Objective Patient Orientation: Person, Place, Time, Situation Attachments: IV, Oxygen (4.5L) ADL-Treatment 1st session [id number]: Pt declines shower stating that it will wipe him out for the rest of the day. Agrees to sponge bath. Set up for sponge bath. Pt able to complete all areas by self except lower legs/feet, asked if pt was using LH sponge at home and pt stated no that his was completing. Pt was given LH sponge for use at home with last ARU stay. After set up, pt able to complete upper and lower body dressing by self. Pt given sock aide to complete donning socks, assist to doff socks. Pt has lower body dressing equipment at home from previous ARU stay. Pt declined oral care at this time. 2nd session [id number]: Pt ambulated into bathroom using FWW. Pt aware of O2 tubing though lifts FWW over it instead of turning away from it to avoid getting wrapped in it. Pt independent with toilet transfer. Assist with cleansing after BM, pt stating that he is able to complete at home with his set up and cannot do that here. Pt able to manipulate clothing independently. Due to fatigue and SOA, pt requested to sit in recliner to complete oral care. Supplies gathered and cleaned up for pt then pt able to complete by self. After session, pt sitting in recliner with call light/phone in reach. present in room. All needs met. Therapy Code Descriptions/Definitions Functional [place] Measure: 0=Not Assessed/NA 4=Minimal Assistance 1=Total Assistance 5=Supervision or Setup 2=Maximal Assistance 6=Modified [place] 3=Moderate Assistance 7=Complete IndependenceSCALE: Activities may be completed with or without assistive devices. 0-Uivjffrnnj-ecfvrlo completes the activity by him/herself with no assistance from a helper. 5-Set-up or Clean-up Assistance-helper sets up or cleans up; patient completes activity. [place] assists only prior to or following the activity. 4-Supervision or Touching Assistance-helper provides verbal cues and/or touching/steadying and/or contact guard assistance as patient completes activity. Assistance may be provided throughout the activity or intermittently. 3-Partial/Moderate Assistance-helper does LESS THAN HALF the effort. [place] lifts, holds or supports trunk or limbs, but provides less than half the effort. 2-Substantial/Maximal Assistance-helper does MORE THAN HALF the effort. [place] lifts or holds trunk or limbs and provides more than half the effort. 0-Bflvfklcw-zezskf does ALL the effort. Patient does none of the effort to complete the activity. Or, the assistance of 2 or more helpers is required for the patient to complete the activity. If activity was not attempted, code reason: 7-Patient Refused. 9-Not Applicable-not attempted and the patient did not perform the activity before the current illness, exacerbation or injury. 10-Not Attempted due to Environmental Limitations-(lack of equipment, weather restraints, etc.). 88-Not Attempted due to Medical Conditions or Safety Concerns. Bathing Location: L Arm, R Arm, L Upper Leg, R Upper Leg, Chest, Abdomen, Buttocks, Perineal Area Shower/Bathe Self (QC): 3 (min A) Upper Body Dressing (QC): 5 Lower Body Dressing (QC): 5 On/Off Footwear: 3 (mod A) Other Treatment 1st session [id number]: Pt given medium resistance theraband to increase B UE s trength and activity tolerance for daily functional tasks. With skilled instruction, pt was able to complete with correct technique and breathing. 1 set 10 reps of B shldr abd, B shldr horizontal abd, tricep ext and bicep flex. After therapy, pt sitting in recliner with call light/phone in reach. All needs met in room. OT Short Term Goals Short Term Goals Time Frame: Feb 19, 2021 Eatin Oral hygiene: 4 Toileting hygiene: 4 Shower/bathe self: 3 Upper body dressin Lower body dressin (with AE) Putting on/taking off footwear: 3 (With AE) OT Group Home Goals Sales Utility Representative Goals Time Frame: March 05, 2021 Eating (QC): 6 Oral Hygiene (QC): 5 Toileting Hygiene (QC): 5 Shower/Bathe Self (QC): 4 Upper Body Dressing (QC): 5 Lower Body Dressing (QC): 4 On/Off Footwear (QC): 4 Additional Goals: 1-Demonstrate ADL Tasks, 2-Verbalize Understanding, 3-Imp roveStrength/Jennifer 1=Demonstrate adherence to instructed precautions during ADL tasks. 2=Patient will verbalize/demonstrate understanding of assistive devices/modifications for ADL. 3=Patient will improve strength/tolerance for activity to enable patient to perform ADL's. OT Education/Plan Problem List/Assessment Assessment: Decreased Activ Tolerance, Decreased UE Strength, Impaired Self- Care Skills Discharge Recommendations Plan/Recommendations: Continue POC Treatment Plan/Plan of Care Patient would benefit from OT for education, treatment and training to promote independence in ADL's, mobility, safety and/or upper extremity function for ADL's. Plan of Care: ADL Retraining, Concurrent Therapy, Functional Mobility Treatment Duration: Feb 10, 2021 Frequency: 5 times per week Estimated Hrs Per Day: 1 hour per day Agreement: Yes Rehab Potential: Fair Time/GCodes Start Time: 09:00 (1300) Stop Time: 10:00 (1340) Total Time Billed (hr/min): 100 Billed Treatment Time 1 session: 1 visit-ADL 3 (50 min) EX 1 (10 min) 2 session: 1 visit-ADL 3 (40 min) PRINCE SUAZO Feb 13, 2021 10:02
--- NOTE | 2021-02-13 12:03 | Physical Therapy Daily Note ---
PT Daily Note-Current Subjective Pt reports he is tired today because he didn't get much sleep last night as he was up every hour going to the bathroom. Pt in recliner upon arrival and agrees to PT. Pain Location: No Pain Reported Mental Status Patient Orientation: Person, Place, Time, Situation Attachments: Oxygen, Other-See Comments (mask while out of room) Transfers SCALE: Activities may be completed with or without assistive devices. 5-Ekddxfskgn-ayjzlou completes the activity by him/herself with no assistance from a helper. 5-Set-up or Clean-up Assistance-helper sets up or cleans up; patient completes activity. [place] assists only prior to or following the activity. 4-Supervision or Touching Assistance-helper provides verbal cues and/or touching/steadying and/or contact guard assistance as patient completes activity. Assistance may be provided throughout the activity or intermittently. 3-Partial/Moderate Assistance-helper does LESS THAN HALF the effort. [place] lifts, holds or supports trunk or limbs, but provides less than half the effort. 2-Substantial/Maximal Assistance-helper does MORE THAN HALF the effort. [place] lifts or holds trunk or limbs and provides more than half the effort. 9-Uxsubzewe-rqdmlq does ALL the effort. Patient does none of the effort to complete the activity. Or, the assistance of 2 or more helpers is required for the patient to complete the activity. If activity was not attempted, code reason: 7-Patient Refused. 9-Not Applicable-not attempted and the patient did not perform the activity before the current illness, exacerbation or injury. 10-Not Attempted due to Environmental Limitations-(lack of equipment, weather restraints, etc.). 88-Not Attempted due to Medical Conditions or Safety Concerns. Sit to Stand (QC): 5 Gait Training Does the Patient Walk?: Yes Distance: 55' x 1 45' x 1 30' x 1 Walk 10 feet (QC): 5 Walk 50 ft with 2 Turns(QC): 5 Gait Persons Needed: 1 Gait Assistive Device: FWW Exercises Seated Therapy Exercises: Ankle pumps, Sit to stand, Long arc quads, Hip flexion, Glut set Seated Reps: 15 Treatments Pt in recliner upon arrival and agrees to PT. COSTUMER asks pt about using BR but declines as he just went. BP 123/60 and O2 93% while seated. Pt amb 55' and then needs rest break and O2 90% and HR 75. Pt amb to gym and then turns around and amb to green chair for rest break O2 89% and HR 85. After rest break O2 increases to 95%. Performs seated exs and then amb back to room and O2 93%. Pt in recliner call light nearby and all needs met. Assessment Provided skilled verbal cues about safety during sit-stand TF. Pt endurance is reduced so took more rest breaks and increased kyphotic curve during amb. During activity today O2 is lower than yesterday but come back to normal w/ rest. PT Dewatering Filtering Supervisor Goals Residential Goals PT Dewatering Filtering Supervisor Goals Time Frame: February 24, 2021 Roll Left & Right (QC): 6 Sit to Lying (QC): 6 Lying-Sitting on Side/Bed(QC): 6 Sit to Stand (QC): 6 Chair/Zcj-ls-Jnuel Xfer(QC): 6 Toilet Transfer (QC): 6 Car Transfer (QC): 6 Does the Patient Walk: Yes Walk 10 feet (QC): 6 Walk 50ft with 2 Turns (QC): 6 Walk 150 ft (QC): 6 Walking 10ft on Uneven Surface: 6 1 Step (curb) (QC): 6 4 Steps (QC): 6 12 Steps (QC): 5 Picking up an Object (QC): 6 Does the Pt use WC or Scooter?: No Wheel 50 feet with 2 turns (QC: 9 Wheel 150 feet: 9 PT Plan Problem List Problem List: Activity Tolerance, Functional Strength Treatment/Plan Treatment Plan: Continue Plan of Care Treatment Plan: Bed Mobility, Concurrent Therapy, Functional Activity Jennifer, Functional Strength, Group Therapy, Gait, Safety, Therapeutic Exercise, Transfers Treatment Duration: February 24, 2021 Frequency: At least 5 of 7 days/Wk (IRF) Estimated Hrs Per Day: 1.5 hours per day Patient and/or Family Agrees t: Yes Safety Risks/Education Patient Education: Transfer Techniques, Correct Positioning Teaching Recipient: Patient Teaching Methods: Demonstration, Discussion Response to Teaching: Verbalize Understanding, Return Demonstration Time/GCodes Time In: 1115 Time Out: 1200 Total Billed Treatment Time: 45 Total Billed Treatment 1, GT x 2 (30m), EX (15m) MYRON PARDO COSTUMER Feb 13, 2021 12:02
--- NOTE | 2021-02-13 15:26 | Physical Therapy Daily Note ---
PT Daily Note-Current Subjective Pt in recliner upon arrival and agrees to PT. Pt frustrated w/ [facility] and this could possibly be why his BP is higher this afternoon. Pt reports he is dizzy when returning from the BR but subsides within minute. Pain Location: No Pain Reported Mental Status Patient Orientation: Person, Place, Time, Situation, Normal For Age Attachments: Oxygen (4.5L) Transfers SCALE: Activities may be completed with or without assistive devices. 5-Pdggubjxqd-haatrpf completes the activity by him/herself with no assistance from a helper. 5-Set-up or Clean-up Assistance-helper sets up or cleans up; patient completes activity. [place] assists only prior to or following the activity. 4-Supervision or Touching Assistance-helper provides verbal cues and/or touching/steadying and/or contact guard assistance as patient completes ac tivity. Assistance may be provided throughout the activity or intermittently. 3-Partial/Moderate Assistance-helper does LESS THAN HALF the effort. [place] lifts, holds or supports trunk or limbs, but provides less than half the effort. 2-Substantial/Maximal Assistance-helper does MORE THAN HALF the effort. [place] lifts or holds trunk or limbs and provides more than half the effort. 2-Wwmobgial-yihtlx does ALL the effort. Patient does none of the effort to complete the activity. Or, the assistance of 2 or more helpers is required for the patient to complete the activity. If activity was not attempted, code reason: 7-Patient Refused. 9-Not Applicable-not attempted and the patient did not perform the activity before the current illness, exacerbation or injury. 10-Not Attempted due to Environmental Limitations-(lack of equipment, weather restraints, etc.). 88-Not Attempted due to Medical Conditions or Safety Concerns. Sit to Stand (QC): 5 Toilet Transfer (QC): 5 Gait Training Does the Patient Walk?: Yes Walk 10 feet (QC): 5 Gait Assistive Device: FWW Exercises Supine Ex: Ankle pumps, Quad Set, Straight leg raise, Hip abd/add Supine Reps: 15 Treatments Pt in recliner upon arrival and BP is taken 147/65 and O2 94% then waited a few minutes and BP 140/56. Pt then amb to BR and then after returning BP 166/72. A fter a few minutes and pulsed lip breathing BP is 155/69. After rest break pt performs supine exs. Pt denies being dizzy after supine exs. Pt in recliner call light in hand and all needs met. Assessment Current Status: Good Progress Pt performs TFs w/ SBA and minimal verbal cues. Pt demonstrates good balance as he is able to stand and pull up pants independently. Pt BP high this afternoon and nurse is notified. Pt needed reinforcement to help w/ the performance of QS. After supine exs pt denies being dizzy or lightheaded. PT Physician Anesthesiologist Goals Physician Anesthesiologist Goals PT Longterm Goals Time Frame: February 24, 2021 Roll Left & Right (QC): 6 Sit to Lying (QC): 6 Lying-Sitting on Side/Bed(QC): 6 Sit to Stand (QC): 6 Chair/Ags-sd-Ykkkn Xfer(QC): 6 Toilet Transfer (QC): 6 Car Transfer (QC): 6 Does the Patient Walk: Yes Walk 10 feet (QC): 6 Walk 50ft with 2 Turns (QC): 6 Walk 150 ft (QC): 6 Walking 10ft on Uneven Surface: 6 1 Step (curb) (QC): 6 4 Steps (QC): 6 12 Steps (QC): 5 Picking up an Object (QC): 6 Does the Pt use WC or Scooter?: No Wheel 50 feet with 2 turns (QC: 9 Wheel 150 feet: 9 PT Plan Problem List Problem List: Activity Tolerance, Functional Strength Treatment/Plan Treatment Plan: Continue Plan of Care Treatment Plan: Bed Mobility, Concurrent Therapy, Functional Activity Jennifer, Functional Strength, Group Therapy, Gait, Safety, Therapeutic Exercise, Transfers Treatment Duration: February 24, 2021 Frequency: At least 5 of 7 days/Wk (IRF) Estimated Hrs Per Day: 1.5 hours per day Patient and/or Family Agrees t: Yes Safety Risks/Education Patient Education: Correct Positioning Teaching Recipient: Patient Teaching Methods: Demonstration, Discussion Response to Teaching: Verbalize Understanding, Return Demonstration Time/GCodes Time In: 1445 Time Out: 1520 Total Billed Treatment Time: 35 Total Billed Treatment 1, FA (20m), EX (15m) MYRON PARDO MOSAIC TILER Feb 13, 2021 15:26
[2021-02-13] MEDS: TAMSULOSIN 0.4 MG (FLOMAX) CAP PO SCH (18:30)
[2021-02-13 20:00] VITALS: BP 159/72
[2021-02-13] MEDS: ACETAMINOPHEN 500 MG TAB (TYLENOL) PO PRN (21:28)
--- NOTE | 2021-02-14 06:06 | PM&R Progress Note ---
Subjective HPI/CC On Admission Date Seen by Provider: Feb 14, 2021 Time Seen by Provider: 09:00 Subjective/Events-last exam 02/14/21: Pt doing better Has some questions about Flomax making him urinate more so will reach out to Dr. Simmons, his regular urologist Bowels are moving pretty well Ditch level was checked and it was okay Pt a bit cranky at times 02/13/21: Pt cranky and having difficulty getting what he likes for breakfast Remains on 5 liters of O2 Bowels are moving BP better today at 134/67 02/12/21: Pt doing a lot better Will discontinue Acu-check since 3 units of insulin made him go really low BP is elevated today 02/11/21: Patient is doing well and daughter at the bedside Feels good Lungs sound good Completed abx WBC 11.7 hgb 8.[address] BM yesterday Review of Systems General: Fatigue, Malaise Pulmonary: Dyspnea Neurological: Weakness Objective Exam Vital Signs Vital Signs Date Time Temp Pulse Resp B/P (MAP) Pulse Ox O2 Delivery O2 Flow Rate FiO2 02/15/21 00:35 74 02/14/21 21:00 High Flow N/C 5.00 02/14/21 20:00 36.8 22 156/70 (98) 95 Capillary Refill : General Appearance: No Apparent Distress, WD/WN, Chronically ill, Thin HEENT: PERRL/EOMI, Normal ENT Inspection, Pharynx Normal Neck: Full Range of Motion, Normal Inspection, Non Tender, Supple, Carotid Bruit Respiratory: Chest Non Tender, No Accessory Muscle Use, No Respiratory Distress, Crackles, Decreased Breath Sounds Cardiovascular: Regular Rate, Rhythm, No Edema, No Gallop, No JVD, No Murmur, Normal Peripheral Pulses Gastrointestinal: Normal Bowel Sounds, No Organomegaly, No Pulsatile Mass, Non Tender, Soft Back: Normal Inspection, No CVA Tenderness, No Vertebral Tenderness Extremity: Normal Capillary Refill, Normal Inspection, Normal Range of Motion, Non Tender, No Calf Tenderness, No Pedal Edema Neurologic/Psychiatric: Alert, Oriented x3, No Motor/Sensory Deficits, debeaker II- XII Norm as Tested, Abnormal Gait, Depressed Affect, Motor Weakness (lower extremities 4/5) Skin: Normal Color, Warm/Dry Lymphatic: No Adenopathy Results/Procedures Lab Patient resulted labs reviewed. FIM Transfers Therapy Code Descriptions/Definitions Functional [place] Measure: 0=Not Assessed/NA 4=Minimal Assistance 1=Total Assistance 5=Supervision or Setup 2=Maximal Assistance 6=Modified [place] 3=Moderate Assistance 7=Complete IndependenceSCALE: Activities may be completed with or without assistive devices. 9-Bwdxbhkgaz-nmtsqjc completes the activity by him/herself with no assistance from a helper. 5-Set-up or Clean-up Assistance-helper sets up or cleans up; patient completes activity. [place] assists only prior to or following the activity. 4-Supervision or Touching Assistance-helper provides verbal cues and/or touching/steadying and/or contact guard assistance as patient completes activity. Assistance may be provided throughout the activity or intermittently. 3-Partial/Moderate Assistance-helper does LESS THAN HALF the effort. [place] lifts, holds or supports trunk or limbs, but provides less than half the effort. 2-Substantial/Maximal Assistance-helper does MORE THAN HALF the effort. [place] lifts or holds trunk or limbs and provides more than half the effort. 0-Fnyikckjw-kzxjrf does ALL the effort. Patient does none of the effort to complete the activity. Or, the assistance of 2 or more helpers is required for the patient to complete the activity. If activity was not attempted, code reason: 7-Patient Refused. 9-Not Applicable-not attempted and the patient did not perform the activity before the current illness, exacerbation or injury. 10-Not Attempted due to Environmental Limitations-(lack of equipment, weather restraints, etc.). 88-Not Attempted due to Medical Conditions or Safety Concerns. Roll Left to Right (QC): 5 Sit to Lying (QC): 5 Sit to Stand (QC): 5 Chair/Ame-px-Kghnu Xfer(QC): 5 Car Transfer (QC): 5 Gait Training Does the Patient Walk?: Yes Distance: 55' x 1 45' x 1 30' x 1 Walk 10 feet (QC): 5 Walk 50 ft with 2 Turns(QC): 5 Walk 150 ft (QC): 88 Walking 10ft/uneven surface-QC: 5 Gait Persons Needed: 1 Gait Assistive Device: FWW Wheelchair Training Does the Pt Use a Wheelchair?: No Wheel 50 ft with 2 turns (QC): 9 Wheel 150 ft (QC): 9 Stair Training #of Steps: 1 1 Step (curb) (QC): 5 4 Steps (QC): 88 12 Steps (QC): 88 Balance Picking up an Object (QC): 88 ADL-Treatment Eating (QC): 5 Oral Hygiene (QC): 3 (Min assist to brush dentures efficiently.) Bathing Location: L Arm, R Arm, L Upper Leg, R Upper Leg, Chest, Abdomen, Buttocks, Perineal Area Shower/Bathe Self (QC): 3 (min A) Upper Body Dressing (QC): 5 Lower Body Dressing (QC): 5 On/Off Footwear (QC): 3 (mod A) Toileting Hygiene (QC): 3 (Min assist to stand and pull up pants over hips.) Assessment/Plan Assessment and Plan Assess & Plan/Chief Complaint Assessment: COPD myopathy Acute on chronic hypoxic respiratory failure AECOPD Severe COPD at baseline pAF HTN Orthostatic hypotension DM BPH Plan: IRF protocol Nebs O2 COmpleted abx Monitor labs 02/11/21: Monitor closely O2 maintained nebs 02/12/21: Monitor lung status Nebs O2 02/13/21: Monitor lungs Monitor BP Fall risk 02/14/21: Monitor lungs Dr Simmons to eval Flomax (1) Myopathy (2) Atrial fibrillation with RVR Status: Acute (3) T2DM (type 2 diabetes mellitus) Status: Chronic (4) Acute and chronic respiratory failure with hypoxia Status: Acute (5) Orthostatic hypotension Status: Acute (6) COPD with exacerbation Status: Acute (7) General weakness Status: Acute (8) Dyspnea MARY LAMBERT DO Feb 14, 2021 06:06
[2021-02-14] MEDS: predniSONE 20 MG TAB PO SCH (06:52)
[2021-02-14] MEDS: RT-ALBUTEROL/IPRATROPIUM 3 ML (DUONEB) VIAL INH SCH ×4 (07:00→19:01)
[2021-02-14 08:00] VITALS: BP 126/58
[2021-02-14] MEDS: APIXABAN 2.5 MG (ELIQUIS) TABLET PO SCH ×2 (08:45→21:03)
[2021-02-14] MEDS: AMIODARONE 200 MG (CORDARONE) TAB PO SCH (08:45)
[2021-02-14] MEDS: DOCUSATE SODIUM 100 MG (COLACE) CAP PO SCH ×2 (08:45→21:03)
[2021-02-14] MEDS: dilTIAZem120 MG (CARDIZEM CD) CAP PO SCH (08:45)
[2021-02-14] MEDS: FUROSEMIDE 40 MG (LASIX) TAB PO SCH (08:45)
[2021-02-14] MEDS: SENNA W/DOCUSATE (SENOKOT S) TABLET PO SCH ×2 (08:45→21:00)
[2021-02-14] MEDS: DIGOXIN 0.125 MG (LANOXIN) TAB PO SCH (08:45)
[2021-02-14] MEDS: LACTOBACILLUS ACIDOPHILUS (PROBIOTIC) CAPSULE PO SCH ×3 (08:45→17:15)
[2021-02-14] MEDS: polyethylene glycoL POWDER 17 GM (MIRALAX) PACK PO SCH ×2 (08:49→21:00)
--- NOTE | 2021-02-14 11:13 | Occupational Ther Daily Note ---
OT Current Status-Daily Note Subjective Pt alert, sitting in recliner. Pt agrees to therapy. No c/o pain only fatigue. Mental Status/Objective Patient Orientation: Person, Place, Time, Situation Attachments: IV, Oxygen (4.5L), Telemetry ADL-Treatment 1st session [id number]: Monitored O2 sats throughout ADLs 65-91%. Set up for sponge bathe, pt completes all areas except lower legs and feet. completes at home. Pt does have LH sponge and dressing equipment at home. Pt able to complete dressing after set up, uses sock aide to don socks. Pt able to transfer to toilet independently using FWW and BSC. Able to complete clothing manipulation independently. Pt states that he is able to complete hygiene at home with his toilet set up, requires assistance here because it is not set up the same way. Pt fatigues quickly and takes lengthy recovery breaks with all ADLs. Pt requests assistance to open packages for meal, pt has demonstrated fair fine motor strength to complete on own. Sitting at sink, pt able to complete oral care. After therapy, pt lying in bed with call light/phone in reach. All needs met in room. 2nd session [id number]: SW in room. Pt requested to complete oral care. Ambulated to bathroom and stood at sink to complete half of oral care then sat in chair with arms for rest of task. Completed oral care independent with frequent recovery breaks due to SOA. Pt then ambulated back to bed and completed bed mobility independently. After session, pt lying in bed with call light/phone in reach. All needs met in room. Therapy Code Descriptions/Definitions Functional [place] Measure: 0=Not Assessed/NA 4=Minimal Assistance 1=Total Assistance 5=Supervision or Setup 2=Maximal Assistance 6=Modified [place] 3=Moderate Assistance 7=Complete IndependenceSCALE: Activities may be completed with or without assistive devices. 2-Bqzqfexndh-zezebjf completes the activity by him/herself with no assistance from a helper. 5-Set-up or Clean-up Assistance-helper sets up or cleans up; patient completes activity. [place] assists only prior to or following the activity. 4-Supervision or Touching Assistance-helper provides verbal cues and/or touching/steadying and/or contact guard assistance as patient completes activity. Assistance may be provided throughout the activity or intermittently. 3-Partial/Moderate Assistance-helper does LESS THAN HALF the effort. [place] lifts, holds or supports trunk or limbs, but provides less than half the effort. 2-Substantial/Maximal Assistance-helper does MORE THAN HALF the effort. [place] lifts or holds trunk or limbs and provides more than half the effort. 4-Twrqzlmbd-arwsgt does ALL the effort. Patient does none of the effort to compl ete the activity. Or, the assistance of 2 or more helpers is required for the patient to complete the activity. If activity was not attempted, code reason: 7-Patient Refused. 9-Not Applicable-not attempted and the patient did not perform the activity before the current illness, exacerbation or injury. 10-Not Attempted due to Environmental Limitations-(lack of equipment, weather restraints, etc.). 88-Not Attempted due to Medical Conditions or Safety Concerns. Eating (QC): 5 Shower/Bathe Self (QC): 3 Upper Body Dressing (QC): 5 Lower Body Dressing (QC): 5 On/Off Footwear: 5 Toileting Hygiene (QC): 3 Toilet Transfer (QC): 6 OT Short Term Goals Short Term Goals Time Frame: Feb 19, 2021 Eatin Oral hygiene: 4 Toileting hygiene: 4 Shower/bathe self: 3 Upper body dressin Lower body dressin (with AE) Putting on/taking off footwear: 3 (With AE) OT Skilled Nursing Goals Skilled Nursing Goals Time Frame: March 05, 2021 Eating (QC): 6 Oral Hygiene (QC): 5 Toileting Hygiene (QC): 5 Shower/Bathe Self (QC): 4 Upper Body Dressing (QC): 5 Lower Body Dressing (QC): 4 On/Off Footwear (QC): 4 Additional Goals: 1-Demonstrate ADL Tasks, 2-Verbalize Understanding, 3- ImproveStrength/Jennifer 1=Demonstrate adherence to instructed precautions during ADL tasks. 2=Patient will verbalize/demonstrate understanding of assistive devices/modifications for ADL. 3=Patient will improve strength/tolerance for activity to enable patient to perform ADL's. OT Education/Plan Problem List/Assessment Assessment: Decreased Activ Tolerance, Impaired Self-Care Skills Discharge Recommendations Plan/Recommendations: Continue POC Treatment Plan/Plan of Care Patient would benefit from OT for education, treatment and training to promote independence in ADL's, mobility, safety and/or upper extremity function for ADL's. Plan of Care: ADL Retraining, Concurrent Therapy, Functional Mobility Treatment Duration: Feb 10, 2021 Frequency: 5 times per week Estimated Hrs Per Day: 1 hour per day Agreement: Yes Rehab Potential: Fair Time/GCodes Start Time: 08:00 (1315) Stop Time: 09:00 (1345) Total Time Billed (hr/min): 90 Billed Treatment Time 1st session- 1 visit, ADL 4 (60 min) 2nd session-1 visit, FA 2 (30 min) PRINCE SUAZO Feb 14, 2021 11:13
--- NOTE | 2021-02-14 12:01 | Physical Therapy Daily Note ---
PT Daily Note-Current Subjective Pt sitting in recliner upon arrival. present and pt asks to use BR. Pain Location: No Pain Reported Mental Status Patient Orientation: Person, Place, Time, Situation Attachments: Oxygen (4.5L in room and 6L during tx.) Transfers SCALE: Activities may be completed with or without assistive devices. 9-Zrhtrbtmyn-suyjush completes the activity by him/herself with no assistance from a helper. 5-Set-up or Clean-up Assistance-helper sets up or cleans up; patient completes activity. [place] assists only prior to or following the activity. 4-Supervision or Touching Assistance-helper provides verbal cues and/or touching/steadying and/or contact guard assistance as patient completes activity. Assistance may be provided throughout the activity or intermittently. 3-Partial/Moderate Assistance-helper does LESS THAN HALF the effort. [place] lifts, holds or supports trunk or limbs, but provides less than half the effort. 2-Substantial/Maximal Assistance-helper does MORE THAN HALF the effort. [place] lifts or holds trunk or limbs and provides more than half the effort. 7-Bedhgyqia-kyoxsa does ALL the effort. Patient does none of the effort to complete the activity. Or, the assistance of 2 or more helpers is required for the patient to complete the activity. If activity was not attempted, code reason: 7-Patient Refused. 9-Not Applicable-not attempted and the patient did not perform the activity before the current illness, exacerbation or injury. 10-Not Attempted due to Environmental Limitations-(lack of equipment, weather restraints, etc.). 88-Not Attempted due to Medical Conditions or Safety Concerns. Sit to Stand (QC): 5 Toilet Transfer (QC): 5 Weight Bearing Full Weight Bearing Full Weight Bearing Gait Training Does the Patient Walk?: Yes Distance: 75', 50', 50' & 75' Walk 10 feet (QC): 5 Walk 50 ft with 2 Turns(QC): 5 Walk 150 ft (QC): 5 Gait Persons Needed: 1 Gait Assistive Device: FWW Wheelchair Training Does the Pt Use a Wheelchair?: No Exercises NuStep Minutes: 10 NuStep Workload: 3 Treatments TF to standing and uses BR. Pt amb. in hallway, taking RB as needed. Pt uses NuStep, taking RB as needed. Pt amb. in hallway, RB as needed. Pt resting in recliner with all needs met, call light in hand. Assessment Current Status: Good Progress Pt is gaining strength, seen in improved transfers. Pt still fatigues needing rest breaks to recover. PT Licensed Nuclear Operator Goals Long-Term Goals PT Long-Term Goals Time Frame: February 24, 2021 Roll Left & Right (QC): 6 Sit to Lying (QC): 6 Lying-Sitting on Side/Bed(QC): 6 Sit to Stand (QC): 6 Chair/Saw-gv-Faksl Xfer(QC): 6 Toilet Transfer (QC): 6 Car Transfer (QC): 6 Does the Patient Walk: Yes Walk 10 feet (QC): 6 Walk 50ft with 2 Turns (QC): 6 Walk 150 ft (QC): 6 Walking 10ft on Uneven Surface: 6 1 Step (curb) (QC): 6 4 Steps (QC): 6 12 Steps (QC): 5 Picking up an Object (QC): 6 Does the Pt use WC or Scooter?: No Wheel 50 feet with 2 turns (QC: 9 Wheel 150 feet: 9 PT Plan Problem List Problem List: Activity Tolerance, Gait Treatment/Plan Treatment Plan: Continue Plan of Care Treatment Plan: Bed Mobility, Concurrent Therapy, Functional Activity Jennifer, Functional Strength, Group Therapy, Gait, Safety, Therapeutic Exercise, Transfers Treatment Duration: February 24, 2021 Frequency: At least 5 of 7 days/Wk (IRF) Estimated Hrs Per Day: 1.5 hours per day Patient and/or Family Agrees t: Yes Safety Risks/Education Patient Education: Gait Training, Correct Positioning Teaching Recipient: Patient, Family Teaching Methods: Discussion Response to Teaching: Verbalize Understanding Time/GCodes Time In: 1100 Time Out: 1200 Total Billed Treatment Time: 60 Total Billed Treatment 1, GT x2 (30m), FA (15m) & EX (15m) MYRON PARDO TURBINE TECHNICIAN Feb 14, 2021 12:01
--- NOTE | 2021-02-14 14:57 | Physical Therapy Daily Note ---
PT Daily Note-Current Subjective Pt sitting up in bed with present upon arrival. Pt agrees to PT. Pain Location: No Pain Reported Mental Status Patient Orientation: Person, Place, Time, Situation Attachments: Oxygen (4.5L) Transfers SCALE: Activities may be completed with or without assistive devices. 2-Wczgpforqh-vspwtdu completes the activity by him/herself with no assistance from a helper. 5-Set-up or Clean-up Assistance-helper sets up or cleans up; patient completes activity. [place] assists only prior to or following the activity. 4-Supervision or Touching Assistance-helper provides verbal cues and/or touching/steadying and/or contact guard assistance as patient completes activity. Assistance may be provided throughout the activity or intermittently. 3-Partial/Moderate Assistance-helper does LESS THAN HALF the effort. [place] lifts, holds or supports trunk or limbs, but provides less than half the effort. 2-Substantial/Maximal Assistance-helper does MORE THAN HALF the effort. [place] lifts or holds trunk or limbs and provides more than half the effort. 9-Xbfnwjihi-ucbttj does ALL the effort. Patient does none of the effort to complete the activity. Or, the assistance of 2 or more helpers is required for the patient to complete the activity. If activity was not attempted, code reason: 7-Patient Refused. 9-Not Applicable-not attempted and the patient did not perform the activity before the current illness, exacerbation or injury. 10-Not Attempted due to Environmental Limitations-(lack of equipment, weather restraints, etc.). 88-Not Attempted due to Medical Conditions or Safety Concerns. Lying to Sitting/Side of Bed(Q: 5 Sit to Stand (QC): 5 Toilet Transfer (QC): 5 Weight Bearing Full Weight Bearing Full Weight Bearing Gait Training Does the Patient Walk?: Yes Distance: 10' Walk 10 feet (QC): 5 Gait Persons Needed: 1 Gait Assistive Device: FWW Wheelchair Training Does the Pt Use a Wheelchair?: No Exercises Supine Ex: Ankle pumps, Quad Set, Glut sets, Heel Slides, Short Arc Quads, Straight leg raise, Hip abd/add Supine Reps: 10 Treatments Pt completes Supine Ex with RB as needed. Pt is issued and reviews written HEP for Supine & Seated Ex with pt & Sp. Pt uses BR at end of tx. All needs met. Assessment Current Status: Good Progress Pt is gaining strength every treatment but still fatigues at this time. 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 [employer] Goals PT Prison Goals Time Frame: February 24, 2021 Roll Left & Right (QC): 6 Sit to Lying (QC): 6 Lying-Sitting on Side/Bed(QC): 6 Sit to Stand (QC): 6 Chair/Jet-tw-Dphnk Xfer(QC): 6 Toilet Transfer (QC): 6 Car Transfer (QC): 6 Does the Patient Walk: Yes Walk 10 feet (QC): 6 Walk 50ft with 2 Turns (QC): 6 Walk 150 ft (QC): 6 Walking 10ft on Uneven Surface: 6 1 Step (curb) (QC): 6 4 Steps (QC): 6 12 Steps (QC): 5 Picking up an Object (QC): 6 Does the Pt use WC or Scooter?: No Wheel 50 feet with 2 turns (QC: 9 Wheel 150 feet: 9 PT Plan Problem List Problem List: Activity Tolerance Treatment/Plan Treatment Plan: Continue Plan of Care Treatment Plan: Bed Mobility, Concurrent Therapy, Functional Activity Jennifer, Functional Strength, Group Therapy, Gait, Safety, Therapeutic Exercise, Transfers Treatment Duration: February 24, 2021 Frequency: At least 5 of 7 days/Wk (IRF) Estimated Hrs Per Day: 1.5 hours per day Patient and/or Family Agrees t: Yes Safety Risks/Education Patient Education: Issued Written HEP Teaching Recipient: Patient, Significant Other Teaching Methods: Discussion Response to Teaching: Verbalize Understanding, Return Demonstration Time/GCodes Time In: 1400 Time Out: 1430 Total Billed Treatment Time: 30 Total Billed Treatment 1, EX (20m) & FA (10m) MYRON PARDO TRACER BULLET CHARGING MACHINE OPERATOR Feb 14, 2021 14:57
[2021-02-14] MEDS: BETHANECHOL 25 MG (URECHOLINE) TAB PO SCH ×2 (17:15→21:03)
[2021-02-14] MEDS: TAMSULOSIN 0.4 MG (FLOMAX) CAP PO SCH (17:15)
[2021-02-14 20:00] VITALS: BP 156/70
[2021-02-14] MEDS: ACETAMINOPHEN 500 MG TAB (TYLENOL) PO PRN (21:03)
[2021-02-15] MEDS: ACETAMINOPHEN 500 MG TAB (TYLENOL) PO PRN (02:10)
[2021-02-15] MEDS: BETHANECHOL 25 MG (URECHOLINE) TAB PO SCH ×4 (06:41→19:45)
[2021-02-15] MEDS: predniSONE 20 MG TAB PO SCH (06:42)
[2021-02-15] MEDS: RT-ALBUTEROL/IPRATROPIUM 3 ML (DUONEB) VIAL INH SCH ×3 (07:03→18:26)
[2021-02-15 08:07] VITALS: BP 135/63
[2021-02-15] MEDS: AMIODARONE 200 MG (CORDARONE) TAB PO SCH (08:10)
[2021-02-15] MEDS: LACTOBACILLUS ACIDOPHILUS (PROBIOTIC) CAPSULE PO SCH ×3 (08:10→17:18)
[2021-02-15] MEDS: DIGOXIN 0.125 MG (LANOXIN) TAB PO SCH (08:10)
[2021-02-15] MEDS: dilTIAZem120 MG (CARDIZEM CD) CAP PO SCH (08:10)
[2021-02-15] MEDS: APIXABAN 2.5 MG (ELIQUIS) TABLET PO SCH ×2 (08:10→19:45)
[2021-02-15] MEDS: DOCUSATE SODIUM 100 MG (COLACE) CAP PO SCH ×2 (08:10→19:36)
[2021-02-15] MEDS: FUROSEMIDE 40 MG (LASIX) TAB PO SCH (08:10)
[2021-02-15] MEDS: polyethylene glycoL POWDER 17 GM (MIRALAX) PACK PO SCH ×2 (08:11→19:36)
[2021-02-15] MEDS: SENNA W/DOCUSATE (SENOKOT S) TABLET PO SCH ×2 (08:11→19:36)
--- NOTE | 2021-02-15 10:01 | Occupational Ther Daily Note ---
OT Current Status-Daily Note Subjective Pt alert, lying in bed. Pt agrees to therapy. No c/o pain. Mental Status/Objective Patient Orientation: Person, Place, Time, Situation Attachments: IV, Oxygen (4.5L), Telemetry ADL-Treatment Set up for sponge bathe, pt completes all areas except lower legs and feet. completes at home. Pt does have LH sponge and dressing equipment at home. Pt able to complete dressing after set up, uses sock aide to don socks. Pt takes increased time to complete all tasks today. Pt fatigues quickly and takes lengthy recovery breaks with all ADLs. Therapy Code Descriptions/Definitions Functional [place] Measure: 0=Not Assessed/NA 4=Minimal Assistance 1=Total Assistance 5=Supervision or Setup 2=Maximal Assistance 6=Modified [place] 3=Moderate Assistance 7=Complete IndependenceSCALE: Activities may be completed with or without assistive devices. 4-Didrpvucpa-iipwhio completes the activity by him/herself with no assistance from a helper. 5-Set-up or Clean-up Assistance-helper sets up or cleans up; patient completes activity. [place] assists only prior to or following the activity. 4-Supervision or Touching Assistance-helper provides verbal cues and/or touching/steadying and/or contact guard assistance as patient completes activity. Assistance may be provided throughout the activity or intermittently. 3-Partial/Moderate Assistance-helper does LESS THAN HALF the effort. [place] lif ts, holds or supports trunk or limbs, but provides less than half the effort. 2-Substantial/Maximal Assistance-helper does MORE THAN HALF the effort. [place] lifts or holds trunk or limbs and provides more than half the effort. 9-Yyrahyzgk-ugemgy does ALL the effort. Patient does none of the effort to complete the activity. Or, the assistance of 2 or more helpers is required for the patient to complete the activity. If activity was not attempted, code reason: 7-Patient Refused. 9-Not Applicable-not attempted and the patient did not perform the activity before the current illness, exacerbation or injury. 10-Not Attempted due to Environmental Limitations-(lack of equipment, weather restraints, etc.). 88-Not Attempted due to Medical Conditions or Safety Concerns. Shower/Bathe Self (QC): 3 Upper Body Dressing (QC): 5 Lower Body Dressing (QC): 5 On/Off Footwear: 2 (Pt fatigued and increased SOA, more assist needed today) Other Treatment Worked on B UE medium resistance theraband exercise. Skilled instruction to educate on exercises and correct technique. Pt completed 3 sets 10 reps of each exercise with lengthy recovery breaks between sets. 5 B UE exercises completed to strengthening B UE for daily functional tasks. After therapy, pt sitting in recliner with call light/phone in reach. All needs met in room. OT Short Term Goals Short Term Goals Time Frame: Feb 19, 2021 Eatin Oral hygiene: 4 Toileting hygiene: 4 Shower/bathe self: 3 Upper body dressin Lower body dressin (with AE) Putting on/taking off footwear: 3 (With AE) OT Audit Analyst Goals Fdc Goals Time Frame: March 05, 2021 Eating (QC): 6 Oral Hygiene (QC): 5 Toileting Hygiene (QC): 5 Shower/Bathe Self (QC): 4 Upper Body Dressing (QC): 5 Lower Body Dressing (QC): 4 On/Off Footwear (QC): 4 Additional Goals: 1-Demonstrate ADL Tasks, 2-Verbalize Understanding, 3- ImproveStrength/Jennifer 1=Demonstrate adherence to instructed precautions during ADL tasks. 2=Patient will verbalize/demonstrate understanding of assistive devices/mod ifications for ADL. 3=Patient will improve strength/tolerance for activity to enable patient to perform ADL's. OT Education/Plan Problem List/Assessment Assessment: Decreased Activ Tolerance, Decreased UE Strength, Impaired Self- Care Skills Discharge Recommendations Plan/Recommendations: Continue POC Treatment Plan/Plan of Care Patient would benefit from OT for education, treatment and training to promote i ndependence in ADL's, mobility, safety and/or upper extremity function for ADL's. Plan of Care: ADL Retraining, Concurrent Therapy, Functional Mobility Treatment Duration: Feb 10, 2021 Frequency: 5 times per week Estimated Hrs Per Day: 1 hour per day Agreement: Yes Rehab Potential: Fair Time/GCodes Start Time: 08:30 Stop Time: 10:00 Total Time Billed (hr/min): 90 Billed Treatment Time 1 visit-ADL 4 (60 min) EX 2 (30 min) PRINCE SUAZO Feb 15, 2021 10:01
--- NOTE | 2021-02-15 10:42 | PM&R Progress Note ---
Subjective HPI/CC On Admission Date Seen by Provider: Feb 15, 2021 Time Seen by Provider: 10:45 Subjective/Events-last exam 02/15/21: Patient doing better Lungs remain clear Urination is an issue will reach out to Dr Simmons O2 maintained 02/14/21: Pt doing better Has some questions about Flomax making him urinate more so will reach out to Dr. Simmons, his regular urologist Bowels are moving pretty well Ditch level was checked and it was okay Pt a bit cranky at times 02/13/21: Pt cranky and having difficulty getting what he likes for breakfast Remains on 5 liters of O2 Bowels are moving BP better today at 134/67 02/12/21: Pt doing a lot better Will discontinue Acu-check since 3 units of insulin made him go really low BP is elevated today 02/11/21: Patient is doing well and daughter at the bedside Feels good Lungs sound good Completed abx WBC 11.7 hgb 8.[address] BM yesterday Review of Systems General: Fatigue Genitourinary: Frequency Neurological: Weakness Objective Exam Vital Signs Vital Signs Date Time Temp Pulse Resp B/P (MAP) Pulse Ox O2 Delivery O2 Flow Rate FiO2 02/16/21 01:00 71 02/15/21 20:40 High Flow N/C 4.00 02/15/21 19:55 36.6 22 163/72 (102) 93 Capillary Refill : General Appearance: No Apparent Distress, WD/WN, Chronically ill, Thin HEENT: PERRL/EOMI, Normal ENT Inspection, Pharynx Normal Neck: Full Range of Motion, Normal Inspection, Non Tender, Supple, Carotid Bruit Respiratory: Chest Non Tender, No Accessory Muscle Use, No Respiratory Distress, Crackles, Decreased Breath Sounds Cardiovascular: Regular Rate, Rhythm, No Edema, No Gallop, No JVD, No Murmur, Normal Peripheral Pulses Gastrointestinal: Normal Bowel Sounds, No Organomegaly, No Pulsatile Mass, Non Tender, Soft Back: Normal Inspection, No CVA Tenderness, No Vertebral Tenderness Extremity: Normal Capillary Refill, Normal Inspection, Normal Range of Motion, Non Tender, No Calf Tenderness, No Pedal Edema Neurologic/Psychiatric: Alert, Oriented x3, No Motor/Sensory Deficits, director biology II- XII Norm as Tested, Abnormal Gait, Depressed Affect, Motor Weakness (lower extremities 4/5) Skin: Normal Color, Warm/Dry Lymphatic: No Adenopathy Results/Procedures Lab Patient resulted labs reviewed. FIM Transfers Therapy Code Descriptions/Definitions Functional [place] Measure: 0=Not Assessed/NA 4=Minimal Assistance 1=Total Assistance 5=Supervision or Setup 2=Maximal Assistance 6=Modified [place] 3=Moderate Assistance 7=Complete IndependenceSCALE: Activities may be completed with or without assistive devices. 9-Oaajbqdzil-krkysth completes the activity by him/herself with no assistance from a helper. 5-Set-up or Clean-up Assistance-helper sets up or cleans up; patient completes activity. [place] assists only prior to or following the activity. 4-Supervision or Touching Assistance-helper provides verbal cues and/or touching/steadying and/or contact guard assistance as patient completes activity. Assistance may be provided throughout the activity or intermittently. 3-Partial/Moderate Assistance-helper does LESS THAN HALF the effort. [place] lifts, holds or supports trunk or limbs, but provides less than half the effort. 2-Substantial/Maximal Assistance-helper does MORE THAN HALF the effort. [place] lifts or holds trunk or limbs and provides more than half the effort. 8-Vszjvixms-ohdodm does ALL the effort. Patient does none of the effort to complete the activity. Or, the assistance of 2 or more helpers is required for the patient to complete the activity. If activity was not attempted, code reason: 7-Patient Refused. 9-Not Applicable-not attempted and the patient did not perform the activity before the current illness, exacerbation or injury. 10-Not Attempted due to Environmental Limitations-(lack of equipment, weather restraints, etc.). 88-Not Attempted due to Medical Conditions or Safety Concerns. Roll Left to Right (QC): 5 Sit to Lying (QC): 5 Sit to Stand (QC): 5 Chair/Vou-ws-Tvtim Xfer(QC): 5 Car Transfer (QC): 5 Gait Training Does the Patient Walk?: Yes Distance: 10' Walk 10 feet (QC): 5 Walk 50 ft with 2 Turns(QC): 5 Walk 150 ft (QC): 5 Walking 10ft/uneven surface-QC: 5 Gait Persons Needed: 1 Gait Assistive Device: FWW Wheelchair Training Does the Pt Use a Wheelchair?: No Wheel 50 ft with 2 turns (QC): 9 Wheel 150 ft (QC): 9 Stair Training #of Steps: 1 1 Step (curb) (QC): 5 4 Steps (QC): 88 12 Steps (QC): 88 Balance Picking up an Object (QC): 88 ADL-Treatment Eating (QC): 5 Oral Hygiene (QC): 3 (Min assist to brush dentures efficiently.) Bathing Location: L Arm, R Arm, L Upper Leg, R Upper Leg, Chest, Abdomen, Buttocks, Perineal Area Shower/Bathe Self (QC): 3 Upper Body Dressing (QC): 5 Lower Body Dressing (QC): 5 On/Off Footwear (QC): 2 (Pt fatigued and increased SOA, more assist needed today) Toileting Hygiene (QC): 3 Toilet Transfer (QC): 6 Assessment/Plan Assessment and Plan Assess & Plan/Chief Complaint Assessment: COPD myopathy Acute on chronic hypoxic respiratory failure AECOPD Severe COPD at baseline pAF HTN Orthostatic hypotension DM BPH Plan: IRF protocol Nebs O2 COmpleted abx Monitor labs 02/11/21: Monitor closely O2 maintained nebs 02/12/21: Monitor lung status Nebs O2 02/13/21: Monitor lungs Monitor BP Fall risk 02/14/21: Monitor lungs Dr Simmons to eval Flomax 02/15/21: O2 maintained Monitor closely (1) Myopathy (2) Atrial fibrillation with RVR Status: Acute (3) T2DM (type 2 diabetes mellitus) Status: Chronic (4) Acute and chronic respiratory failure with hypoxia Status: Acute (5) Orthostatic hypotension Status: Acute (6) COPD with exacerbation Status: Acute (7) General weakness Status: Acute (8) Dyspnea MARY LAMBERT DO Feb 15, 2021 10:42
--- NOTE | 2021-02-15 12:03 | Physical Therapy Daily Note ---
PT Daily Note-Current Subjective Pt reports that he is SOB after doing nustep and that it made him work hard but was better after rest break. Pain Location: No Pain Reported Mental Status Patient Orientation: Person, Place, Time, Situation, Normal For Age Attachments: Oxygen (6L), Other-See Comments (mask while out of room) Transfers SCALE: Activities may be completed with or without assistive devices. 3-Gemukfesbi-xlhseps completes the activity by him/herself with no assistance from a helper. 5-Set-up or Clean-up Assistance-helper sets up or cleans up; patient completes activity. [place] assists only prior to or following the activity. 4-Supervision or Touching Assistance-helper provides verbal cues and/or storm mica/steadying and/or contact guard assistance as patient completes activity. Assistance may be provided throughout the activity or intermittently. 3-Partial/Moderate Assistance-helper does LESS THAN HALF the effort. [place] lifts, holds or supports trunk or limbs, but provides less than half the effort. 2-Substantial/Maximal Assistance-helper does MORE THAN HALF the effort. [place] lifts or holds trunk or limbs and provides more than half the effort. 3-Gykaeinmy-puveng does ALL the effort. Patient does none of the effort to complete the activity. Or, the assistance of 2 or more helpers is required for the patient to complete the activity. If activity was not attempted, code reason: 7-Patient Refused. 9-Not Applicable-not attempted and the patient did not perform the activity before the current illness, exacerbation or injury. 10-Not Attempted due to Environmental Limitations-(lack of equipment, weather restraints, etc.). 88-Not Attempted due to Medical Conditions or Safety Concerns. Sit to Stand (QC): 5 Weight Bearing Full Weight Bearing Full Weight Bearing Gait Training Does the Patient Walk?: Yes Distance: 75' x 2 25' x 2 Walk 10 feet (QC): 5 Walk 50 ft with 2 Turns(QC): 4 Gait Persons Needed: 1 Gait Assistive Device: FWW Wheelchair Training Does the Pt Use a Wheelchair?: No Exercises Seated Therapy Exercises: Ankle pumps, Sit to stand, Long arc quads, Hip flexion, Hamstring Curls (with red theraband), Glut set Seated Reps: 15 NuStep Minutes: 10 NuStep Workload: 3 Treatments TF from recliner to standing, declines needing BR. Pt amb. in hallway, taking RB as needed for fatigue. Pt uses NuStep then takes RB before amb. in hallway. Pt completes Seated Ex before finishing walk to room. Pt uses BR at end of tx and returns to recliner for lunch. All needs met, call light in hand. Assessment Current Status: Good Progress Pt endurance is improving as his O2 sats were improved and did not drop below 93%. Pt needed infrequent skilled cues about reaching back for chair and to not pull on FWW. PT Equipment Operator Goals Equipment Operator Goals PT Equipment Operator Goals Time Frame: February 24, 2021 Roll Left & Right (QC): 6 Sit to Lying (QC): 6 Lying-Sitting on Side/Bed(QC): 6 Sit to Stand (QC): 6 Chair/Tar-hs-Wexbd Xfer(QC): 6 Toilet Transfer (QC): 6 Car Transfer (QC): 6 Does the Patient Walk: Yes Walk 10 feet (QC): 6 Walk 50ft with 2 Turns (QC): 6 Walk 150 ft (QC): 6 Walking 10ft on Uneven Surface: 6 1 Step (curb) (QC): 6 4 Steps (QC): 6 12 Steps (QC): 5 Picking up an Object (QC): 6 Does the Pt use WC or Scooter?: No Wheel 50 feet with 2 turns (QC: 9 Wheel 150 feet: 9 PT Plan Problem List Problem List: Activity Tolerance, Functional Strength Treatment/Plan Treatment Plan: Continue Plan of Care Treatment Plan: Bed Mobility, Concurrent Therapy, Functional Activity Jennifer, Functional Strength, Group Therapy, Gait, Safety, Therapeutic Exercise, Transfers Treatment Duration: February 24, 2021 Frequency: At least 5 of 7 days/Wk (IRF) Estimated Hrs Per Day: 1.5 hours per day Patient and/or Family Agrees t: Yes Safety Risks/Education Patient Education: Correct Positioning, Safety Issues Teaching Recipient: Patient Teaching Methods: Demonstration, Discussion Response to Teaching: Verbalize Understanding, Return Demonstration Time/GCodes Time In: 1100 Time Out: 1200 Total Billed Treatment Time: 60 Total Billed Treatment 1, EX x 2 (35m), FA (15m), GT (10m) MYRON PARDO PTA Feb 15, 2021 12:03
--- NOTE | 2021-02-15 14:09 | Physical Therapy Daily Note ---
PT Daily Note-Current Subjective Pt resting in recliner to start tx. Pt agrees to PT but reports fatigue to start tx. Pain Location: No Pain Reported Mental Status Patient Orientation: Person, Place, Time, Situation Attachments: Oxygen (4.5L) Transfers SCALE: Activities may be completed with or without assistive devices. 9-Udlynzdiop-wgjebhw completes the activity by him/herself with no assistance from a helper. 5-Set-up or Clean-up Assistance-helper sets up or cleans up; patient completes activity. [place] assists only prior to or following the activity. 4-Supervision or Touching Assistance-helper provides verbal cues and/or touching/steadying and/or contact guard assistance as patient completes activity. Assistance may be provided throughout the activity or intermittently. 3-Partial/Moderate Assistance-helper does LESS THAN HALF the effort. [place] lifts, holds or supports trunk or limbs, but provides less than half the effort. 2-Substantial/Maximal Assistance-helper does MORE THAN HALF the effort. [place] lifts or holds trunk or limbs and provides more than half the effort. 3-Sgkfnjbjv-hjkusw does ALL the effort. Patient does none of the effort to complete the activity. Or, the assistance of 2 or more helpers is required for the patient to complete the activity. If activity was not attempted, code reason: 7-Patient Refused. 9-Not Applicable-not attempted and the patient did not perform the activity before the current illness, exacerbation or injury. 10-Not Attempted due to Environmental Limitations-(lack of equipment, weather restraints, etc.). 88-Not Attempted due to Medical Conditions or Safety Concerns. Sit to Lying (QC): 5 Sit to Stand (QC): 5 Weight Bearing Full Weight Bearing Full Weight Bearing Gait Training Does the Patient Walk?: Yes Walk 10 feet (QC): 5 Walk 50 ft with 2 Turns(QC): 4 Gait Persons Needed: 1 Gait Assistive Device: FWW Wheelchair Training Does the Pt Use a Wheelchair?: No Stair Training #of Steps: 2 1 Step (curb) (QC): 5 Stairs: Pattern: Step to Pt uses Single step twice at SBA in //bars. Exercises Standing: Hip Abduction, Marching, Step-ups (2 steps ) Standing Reps: 15 Treatments TF to standing to beginning tx. Pt declines need for BR as was just used. Pt amb. in hallway, taking RB as needed. Pt rests again upon reaching Therapy Gym before two single steps & Standing EX at //bars. Pt amb. in hallway, resting as needed. Pt returns to bed to rest at end of tx. Pt is repositioned to comfort with all needs met, call light in hand. Assessment Current Status: Fair Progress Pt is fatigued, needing frequent rest breaks during Standing Exercises. PT Rn Oncology Clinical Goals Shelter Goals PT Shelter Goals Time Frame: February 24, 2021 Roll Left & Right (QC): 6 Sit to Lying (QC): 6 Lying-Sitting on Side/Bed(QC): 6 Sit to Stand (QC): 6 Chair/Rqn-ok-Wlczv Xfer(QC): 6 Toilet Transfer (QC): 6 Car Transfer (QC): 6 Does the Patient Walk: Yes Walk 10 feet (QC): 6 Walk 50ft with 2 Turns (QC): 6 Walk 150 ft (QC): 6 Walking 10ft on Uneven Surface: 6 1 Step (curb) (QC): 6 4 Steps (QC): 6 12 Steps (QC): 5 Picking up an Object (QC): 6 Does the Pt use WC or Scooter?: No Wheel 50 feet with 2 turns (QC: 9 Wheel 150 feet: 9 PT Plan Problem List Problem List: Activity Tolerance, Functional Strength Treatment/Plan Treatment Plan: Continue Plan of Care Treatment Plan: Bed Mobility, Concurrent Therapy, Functional Activity Jennifer, Functional Strength, Group Therapy, Gait, Safety, Therapeutic Exercise, Transfers Treatment Duration: February 24, 2021 Frequency: At least 5 of 7 days/Wk (IRF) Estimated Hrs Per Day: 1.5 hours per day Patient and/or Family Agrees t: Yes Safety Risks/Education Patient Education: Correct Positioning, Safety Issues Teaching Recipient: Patient Teaching Methods: Demonstration, Discussion Response to Teaching: Verbalize Understanding, Return Demonstration Time/GCodes Time In: 1330 Time Out: 1400 Total Billed Treatment Time: 30 Total Billed Treatment 1, GT (20m) & EX (10m) MYRON PARDO ROAD ENGINEER Feb 15, 2021 14:09
[2021-02-15] MEDS: TAMSULOSIN 0.4 MG (FLOMAX) CAP PO SCH (17:18)
[2021-02-15 19:55] VITALS: BP 163/72
[2021-02-16] MEDS: predniSONE 20 MG TAB PO SCH (06:07)
[2021-02-16] MEDS: BETHANECHOL 25 MG (URECHOLINE) TAB PO SCH ×4 (06:07→20:48)
[2021-02-16] MEDS: RT-ALBUTEROL/IPRATROPIUM 3 ML (DUONEB) VIAL INH SCH ×4 (07:02→18:35)
[2021-02-16] MEDS: LACTOBACILLUS ACIDOPHILUS (PROBIOTIC) CAPSULE PO SCH ×3 (07:40→17:13)
[2021-02-16] MEDS: SENNA W/DOCUSATE (SENOKOT S) TABLET PO SCH ×2 (07:40→20:55)
[2021-02-16] MEDS: DIGOXIN 0.125 MG (LANOXIN) TAB PO SCH (07:40)
[2021-02-16] MEDS: FUROSEMIDE 40 MG (LASIX) TAB PO SCH (07:40)
[2021-02-16] MEDS: AMIODARONE 200 MG (CORDARONE) TAB PO SCH (07:41)
[2021-02-16] MEDS: DOCUSATE SODIUM 100 MG (COLACE) CAP PO SCH ×2 (07:41→20:55)
[2021-02-16] MEDS: polyethylene glycoL POWDER 17 GM (MIRALAX) PACK PO SCH ×2 (07:41→19:47)
[2021-02-16] MEDS: dilTIAZem120 MG (CARDIZEM CD) CAP PO SCH (07:41)
[2021-02-16] MEDS: APIXABAN 2.5 MG (ELIQUIS) TABLET PO SCH ×2 (07:41→20:48)
[2021-02-16 08:00] VITALS: BP 146/65
--- NOTE | 2021-02-16 09:58 | Physical Therapy Daily Note ---
PT Daily Note-Current Subjective Pt. agrees to rx, states he will eventually have a ramp at home but currently has 3 steps with rail to climb to get in to his house. Pt. c/o SOB during Rx and is dyspneic Pain Location: No Pain Reported Mental Status Patient Orientation: Normal For Age Attachments: Oxygen (3-5 L as needed during Rx), Other-See Comments (mask) Transfers SCALE: Activities may be completed with or without assistive devices. 9-Xumpewmhnp-vvwcwcl completes the activity by him/herself with no assistance from a helper. 5-Set-up or Clean-up Assistance-helper sets up or cleans up; patient completes activity. [place] assists only prior to or following the activity. 4-Supervision or Touching Assistance-helper provides verbal cues and/or touching/steadying and/or contact guard assistance as patient completes activity. Assistance may be provided throughout the activity or intermittently. 3-Partial/Moderate Assistance-helper does LESS THAN HALF the effort. [place] lifts, holds or supports trunk or limbs, but provides less than half the effort. 2-Substantial/Maximal Assistance-helper does MORE THAN HALF the effort. [place] lifts or holds trunk or limbs and provides more than half the effort. 4-Rvppinvzm-zgwiov does ALL the effort. Patient does none of the effort to complete the activity. Or, the assistance of 2 or more helpers is required for the patient to complete the activity. If activity was not attempted, code reason: 7-Patient Refused. 9-Not Applicable-not attempted and the patient did not perform the activity before the current illness, exacerbation or injury. 10-Not Attempted due to Environmental Limitations-(lack of equipment, weather restraints, etc.). 88-Not Attempted due to Medical Conditions or Safety Concerns. Sit to Stand (QC): 6 Weight Bearing Full Weight Bearing Full Weight Bearing Gait Training Does the Patient Walk?: Yes Walk 10 feet (QC): 5 Walk 50 ft with 2 Turns(QC): 5 Gait Persons Needed: 1 Gait Assistive Device: FWW 85ftx4, 25ftx2, CGA and assist for portable O2, pt. wt bearing on FWW to assist with breathing for energy conservation, pts O2 sats 82% on 3L O2 , O2 turned up to 5 L per nurse with O2 sats then 93% in very short time with rest. Stair Training Stair Training: Handrails/: 2 handrails #of Steps: 4 4 Steps (QC): 4 Stairs: Pattern: Step to pt. required CGA and instruction for turning in right direction to manage O2 tubing safely. Pt. was SOB after this and rested with O2 monitoring Exercises Seated Therapy Exercises: Ankle pumps, Sit to stand, Long arc quads, Hip flexion, Hip abd/add Seated Reps: 15 NuStep Minutes: 10 NuStep Workload: 2 Treatments O2 monitored closely throughout Rx with O2 adjusted per nursing ok Assessment Current Status: Good Progress pt. becomes SOB, needed increased O2, will need wifes assist at DC PT Fpc Goals Mapping Supervisor Goals PT Fpc Goals Time Frame: February 24, 2021 Roll Left & Right (QC): 6 Sit to Lying (QC): 6 Lying-Sitting on Side/Bed(QC): 6 Sit to Stand (QC): 6 Chair/Dqx-hw-Gazri Xfer(QC): 6 Toilet Transfer (QC): 6 Car Transfer (QC): 6 Does the Patient Walk: Yes Walk 10 feet (QC): 6 Walk 50ft with 2 Turns (QC): 6 Walk 150 ft (QC): 6 Walking 10ft on Uneven Surface: 6 1 Step (curb) (QC): 6 4 Steps (QC): 6 12 Steps (QC): 5 Picking up an Object (QC): 6 Does the Pt use WC or Scooter?: No Wheel 50 feet with 2 turns (QC: 9 Wheel 150 feet: 9 PT Plan Treatment/Plan Treatment Plan: Continue Plan of Care Treatment Plan: Bed Mobility, Concurrent Therapy, Functional Activity Jennifer, Functional Strength, Group Therapy, Gait, Safety, Therapeutic Exercise, Transfers Treatment Duration: February 24, 2021 Frequency: At least 5 of 7 days/Wk (IRF) Estimated Hrs Per Day: 1.5 hours per day Patient and/or Family Agrees t: Yes Safety Risks/Education Patient Education: Gait Training, Transfer Techniques, Steps, Correct Positioning, Disease Process, Safety Issues Teaching Recipient: Patient Teaching Methods: Demonstration, Discussion Response to Teaching: Verbalize Understanding, Return Demonstration, Reinforcement Needed Time/GCodes Time In: 900 Time Out: 1000 Total Billed Treatment Time: 60 Total Billed Treatment 1,GT30m,EX15m,FA15m BRIDGER LUCAS INSPECTION AND TESTING SUPERVISOR Feb 16, 2021 09:58
--- NOTE | 2021-02-16 10:33 | PM&R Progress Note ---
Subjective HPI/CC On Admission Date Seen by Provider: Feb 16, 2021 Time Seen by Provider: 12:00 Subjective/Events-last exam 02/16/21: Doing well Very weak O2 maintained and desats with activity PVR minimal Urinary frequency is better 02/15/21: Patient doing better Lungs remain clear Urination is an issue will reach out to Dr Simmons O2 maintained 02/14/21: Pt doing better Has some questions about Flomax making him urinate more so will reach out to Dr. Simmons, his regular urologist Bowels are moving pretty well Ditch level was checked and it was okay Pt a bit cranky at times 02/13/21: Pt cranky and having difficulty getting what he likes for breakfast Remains on 5 liters of O2 Bowels are moving BP better today at 134/67 02/12/21: Pt doing a lot better Will discontinue Acu-check since 3 units of insulin made him go really low BP is elevated today 02/11/21: Patient is doing well and daughter at the bedside Feels good Lungs sound good Completed abx WBC 11.7 hgb 8.[address] BM yesterday Review of Systems General: Fatigue, Malaise Pulmonary: Dyspnea Neurological: Weakness Objective Exam Vital Signs Vital Signs Date Time Temp Pulse Resp B/P (MAP) Pulse Ox O2 Delivery O2 Flow Rate FiO2 02/17/21 01:00 79 02/16/21 20:15 High Flow N/C 3.00 02/16/21 19:22 36.8 20 175/72 (106) 96 02/16/21 12:32 28 Capillary Refill : General Appearance: No Apparent Distress, WD/WN, Chronically ill, Thin HEENT: PERRL/EOMI, Normal ENT Inspection, Pharynx Normal Neck: Full Range of Motion, Normal Inspection, Non Tender, Supple, Carotid Bruit Respiratory: Chest Non Tender, No Accessory Muscle Use, No Respiratory Distress, Crackles, Decreased Breath Sounds Cardiovascular: Regular Rate, Rhythm, No Edema, No Gallop, No JVD, No Murmur, Normal Peripheral Pulses Gastrointestinal: Normal Bowel Sounds, No Organomegaly, No Pulsatile Mass, Non Tender, Soft Back: Normal Inspection, No CVA Tenderness, No Vertebral Tenderness Extremity: Normal Capillary Refill, Normal Inspection, Normal Range of Motion, Non Tender, No Calf Tenderness, No Pedal Edema Neurologic/Psychiatric: Alert, Oriented x3, No Motor/Sensory Deficits, all around patternmaker II- XII Norm as Tested, Abnormal Gait, Depressed Affect, Motor Weakness (lower extremities 4/5) Skin: Normal Color, Warm/Dry Lymphatic: No Adenopathy Results/Procedures Lab Patient resulted labs reviewed. FIM Transfers Therapy Code Descriptions/Definitions Functional [place] Measure: 0=Not Assessed/NA 4=Minimal Assistance 1=Total Assistance 5=Supervision or Setup 2=Maximal Assistance 6=Modified [place] 3=Moderate Assistance 7=Complete IndependenceSCALE: Activities may be completed with or without assistive devices. 3-Ixtaygksbj-yywkesp completes the activity by him/herself with no assistance from a helper. 5-Set-up or Clean-up Assistance-helper sets up or cleans up; patient completes activity. [place] assists only prior to or following the activity. 4-Supervision or Touching Assistance-helper provides verbal cues and/or touching/steadying and/or contact guard assistance as patient completes ac tivity. Assistance may be provided throughout the activity or intermittently. 3-Partial/Moderate Assistance-helper does LESS THAN HALF the effort. [place] lifts, holds or supports trunk or limbs, but provides less than half the effort. 2-Substantial/Maximal Assistance-helper does MORE THAN HALF the effort. [place] lifts or holds trunk or limbs and provides more than half the effort. 5-Wcuuuidvw-dmyovx does ALL the effort. Patient does none of the effort to complete the activity. Or, the assistance of 2 or more helpers is required for the patient to complete the activity. If activity was not attempted, code reason: 7-Patient Refused. 9-Not Applicable-not attempted and the patient did not perform the activity before the current illness, exacerbation or injury. 10-Not Attempted due to Environmental Limitations-(lack of equipment, weather restraints, etc.). 88-Not Attempted due to Medical Conditions or Safety Concerns. Roll Left to Right (QC): 5 Sit to Lying (QC): 5 Sit to Stand (QC): 6 Chair/Wqj-fg-Ftuto Xfer(QC): 5 Car Transfer (QC): 5 Gait Training Does the Patient Walk?: Yes Distance: 75' x 2 25' x 2 Walk 10 feet (QC): 5 Walk 50 ft with 2 Turns(QC): 5 Walk 150 ft (QC): 5 Walking 10ft/uneven surface-QC: 5 Gait Persons Needed: 1 Gait Assistive Device: FWW Wheelchair Training Does the Pt Use a Wheelchair?: No Wheel 50 ft with 2 turns (QC): 9 Wheel 150 ft (QC): 9 Stair Training Stair Training: Handrails/: 2 handrails #of Steps: 4 1 Step (curb) (QC): 5 4 Steps (QC): 4 12 Steps (QC): 88 Stairs: Pattern: Step to Balance Picking up an Object (QC): 88 ADL-Treatment Eating (QC): 5 Oral Hygiene (QC): 3 (Min assist to brush dentures efficiently.) Bathing Location: L Arm, R Arm, L Upper Leg, R Upper Leg, Chest, Abdomen, Buttocks, Perineal Area Shower/Bathe Self (QC): 3 Upper Body Dressing (QC): 5 Lower Body Dressing (QC): 5 On/Off Footwear (QC): 2 (Pt fatigued and increased SOA, more assist needed today) Toileting Hygiene (QC): 3 Toilet Transfer (QC): 6 Assessment/Plan Assessment and Plan Assess & Plan/Chief Complaint Assessment: COPD myopathy Acute on chronic hypoxic respiratory failure AECOPD Severe COPD at baseline pAF HTN Orthostatic hypotension DM BPH Plan: IRF protocol Nebs O2 COmpleted abx Monitor labs 02/11/21: Monitor closely O2 maintained nebs 02/12/21: Monitor lung status Nebs O2 02/13/21: Monitor lungs Monitor BP Fall risk 02/14/21: Monitor lungs Dr Simmons to eval Flomax 02/15/21: O2 maintained Monitor closely 02/16/21: Monitor closely O2 Monitor urinary status (1) Myopathy (2) Atrial fibrillation with RVR Status: Acute (3) T2DM (type 2 diabetes mellitus) Status: Chronic (4) Acute and chronic respiratory failure with hypoxia Status: Acute (5) Orthostatic hypotension Status: Acute (6) COPD with exacerbation Status: Acute (7) General weakness Status: Acute (8) Dyspnea MARY LAMBERT DO Feb 16, 2021 10:33
--- NOTE | 2021-02-16 10:42 | Occupational Ther Daily Note ---
OT Current Status-Daily Note Subjective Pt alert, sitting in recliner. Pt agrees to therapy. No c/o pain at this time. Pt fatigues quickly and has frequent recovery breaks due to SOA. Mental Status/Objective Patient Orientation: Person, Place, Time, Situation Attachments: Oxygen, Telemetry ADL-Treatment Pt request to use toilet. Pt is independent with toilet transfer and manipulation of clothing. Pt agrees to shower. Due to fatigue and increased SOA pt requires assist to wash and thread lower legs into clothing. Pt c ompletes shower with SBA while standing to cleanse buttocks and kennedy area, assist only to dry lower legs and feet. After set up, pt completes upper body dressing by self. Min A for lower body dressing, pt able to hike pants over hips by self. Pt declined this AM to complete oral care. After session, pt sitting in recliner with call light/phone in reach. All needs met in room. Therapy Code Descriptions/Definitions Functional [place] Measure: 0=Not Assessed/NA 4=Minimal Assistance 1=Total Assistance 5=Supervision or Setup 2=Maximal Assistance 6=Modified [place] 3=Moderate Assistance 7=Complete IndependenceSCALE: Activities may be completed with or without assistive devices. 3-Wsbymzaemp-mbzpnyf completes the activity by him/herself with no assistance from a helper. 5-Set-up or Clean-up Assistance-helper sets up or cleans up; patient completes activity. [place] assists only prior to or following the activity. 4-Supervision or Touching Assistance-helper provides verbal cues and/or touching/steadying and/or contact guard assistance as patient completes activity. Assistance may be provided throughout the activity or intermittently. 3-Partial/Moderate Assistance-helper does LESS THAN HALF the effort. [place] lifts, holds or supports trunk or limbs, but provides less than half the effort. 2-Substantial/Maximal Assistance-helper does MORE THAN HALF the effort. [place] lifts or holds trunk or limbs and provides more than half the effort. 8-Kntcvsmto-ovfqxt does ALL the effort. Patient does none of the effort to complete the activity. Or, the assistance of 2 or more helpers is required for the patient to complete the activity. If activity was not attempted, code reason: 7-Patient Refused. 9-Not Applicable-not attempted and the patient did not perform the activity before the current illness, exacerbation or injury. 10-Not Attempted due to Environmental Limitations-(lack of equipment, weather restraints, etc.). 88-Not Attempted due to Medical Conditions or Safety Concerns. Shower/Bathe Self (QC): 3 Upper Body Dressing (QC): 5 Lower Body Dressing (QC): 3 On/Off Footwear: 2 Toileting Hygiene (QC): 3 Toilet Transfer (QC): 6 OT Short Term Goals Short Term Goals Time Frame: Feb 19, 2021 Eatin Oral hygiene: 4 Toileting hygiene: 4 Shower/bathe self: 3 Upper body dressin Lower body dressin (with AE) Putting on/taking off footwear: 3 (With AE) OT Central Supply Worker Goals Central Supply Worker Goals Time Frame: March 05, 2021 Eating (QC): 6 Oral Hygiene (QC): 5 Toileting Hygiene (QC): 5 Shower/Bathe Self (QC): 4 Upper Body Dressing (QC): 5 Lower Body Dressing (QC): 4 On/Off Footwear (QC): 4 Additional Goals: 1-Demonstrate ADL Tasks, 2-Verbalize Understanding, 3- ImproveStrength/Jennifer 1=Demonstrate adherence to instructed precautions during ADL tasks. 2=Patient will verbalize/demonstrate understanding of assistive devices/modifications for ADL. 3=Patient will improve strength/tolerance for activity to enable patient to perform ADL's. OT Education/Plan Problem List/Assessment Assessment: Decreased Activ Tolerance, Impaired Self-Care Skills Discharge Recommendations Plan/Recommendations: Continue POC Treatment Plan/Plan of Care Patient would benefit from OT for education, treatment and training to promote independence in ADL's, mobility, safety and/or upper extremity function for ADL's. Plan of Care: ADL Retraining, Concurrent Therapy, Functional Mobility Treatment Duration: Feb 10, 2021 Frequency: 5 times per week Estimated Hrs Per Day: 1 hour per day Agreement: Yes Rehab Potential: Fair Time/GCodes Start Time: 10:30 Stop Time: 11:30 Total Time Billed (hr/min): 60 Billed Treatment Time 1 visit-ADL 4 (60 min) PRINCE SUAZO Feb 16, 2021 10:42
[2021-02-16 12:32] VITALS: BP 146/65
--- NOTE | 2021-02-16 13:04 | Occupational Ther Daily Note ---
OT Current Status-Daily Note Subjective Pt alert, sitting in recliner. Pt agrees to therapy. No c/o pain at this time. Mental Status/Objective Patient Orientation: Person, Place, Time, Situation Attachments: IV, Oxygen (2L) ADL-Treatment Pt requests to use toilet. Independent with transfer and manipulating clothing using FWW, grabbar and BSC. Pt only voided, independent with toileting. Sitting at sink, pt completes oral care independently. Pt takes increased time to complete tasks due to increased SOA and multiple recovery breaks. After session, pt sitting in recliner with call light/phone in reach. All needs met in room. Therapy Code Descriptions/Definitions Functional [place] Measure: 0=Not Assessed/NA 4=Minimal Assistance 1=Total Assistance 5=Supervision or Setup 2=Maximal Assistance 6=Modified [place] 3=Moderate Assistance 7=Complete IndependenceSCALE: Activities may be completed with or without assistive devices. 1-Dksvczkoua-uphbgsz completes the activity by him/herself with no assistance from a helper. 5-Set-up or Clean-up Assistance-helper sets up or cleans up; patient completes activity. [place] assists only prior to or following the activity. 4-Supervision or Touching Assistance-helper provides verbal cues and/or touching/steadying and/or contact guard assistance as patient completes activity. Assistance may be provided throughout the activity or intermittently. 3-Partial/Moderate Assistance-helper does LESS THAN HALF the effort. [place] lifts, holds or supports trunk or limbs, but provides less than half the effort. 2-Substantial/Maximal Assistance-helper does MORE THAN HALF the effort. [place] lifts or holds trunk or limbs and provides more than half the effort. 5-Apmgystxh-rdzixp does ALL the effort. Patient does none of the effort to complete the activity. Or, the assistance of 2 or more helpers is required for the patient to complete the activity. If activity was not attempted, code reason: 7-Patient Refused. 9-Not Applicable-not attempted and the patient did not perform the activity before the current illness, exacerbation or injury. 10-Not Attempted due to Environmental Limitations-(lack of equipment, weather restraints, etc.). 88-Not Attempted due to Medical Conditions or Safety Concerns. Oral Hygiene (QC): 6 Toileting Hygiene (QC): 6 Toilet Transfer (QC): 6 OT Short Term Goals Short Term Goals Time Frame: Feb 19, 2021 Eatin Oral hygiene: 4 Toileting hygiene: 4 Shower/bathe self: 3 Upper body dressin Lower body dressin (with AE) Putting on/taking off footwear: 3 (With AE) OT Electrical Technician Instructor Goals Electrical Technician Instructor Goals Time Frame: March 05, 2021 Eating (QC): 6 Oral Hygiene (QC): 5 Toileting Hygiene (QC): 5 Shower/Bathe Self (QC): 4 Upper Body Dressing (QC): 5 Lower Body Dressing (QC): 4 On/Off Footwear (QC): 4 Additional Goals: 1-Demonstrate ADL Tasks, 2-Verbalize Understanding, 3-Impr oveStrength/Jennifer 1=Demonstrate adherence to instructed precautions during ADL tasks. 2=Patient will verbalize/demonstrate understanding of assistive devices/modifications for ADL. 3=Patient will improve strength/tolerance for activity to enable patient to perform ADL's. OT Education/Plan Problem List/Assessment Assessment: Decreased Activ Tolerance, Impaired Self-Care Skills Discharge Recommendations Plan/Recommendations: Continue POC Treatment Plan/Plan of Care Patient would benefit from OT for education, treatment and training to promote independence in ADL's, mobility, safety and/or upper extremity function for ADL's. Plan of Care: ADL Retraining, Concurrent Therapy, Functional Mobility Treatment Duration: Feb 10, 2021 Frequency: 5 times per week Estimated Hrs Per Day: 1 hour per day Agreement: Yes Rehab Potential: Fair Time/GCodes Start Time: 13:00 Stop Time: 13:30 Total Time Billed (hr/min): 30 Billed Treatment Time 1 visit-ADL 2 (30 min) PRINCE SUAZO Feb 16, 2021 13:04
--- NOTE | 2021-02-16 15:16 | Physical Therapy Daily Note ---
PT Daily Note-Current Subjective States he is a little more SOB this afternoon but he feels fine. In recliner upon arrival and consents to Rx. Pain Location: No Pain Reported Mental Status Patient Orientation: Person, Place, Time, Situation Attachments: Oxygen (4L ), Other-See Comments (mask while out of room) Transfers SCALE: Activities may be completed with or without assistive devices. 9-Ukfoczmjby-bitjtnf completes the activity by him/herself with no assistance from a helper. 5-Set-up or Clean-up Assistance-helper sets up or cleans up; patient completes activity. [place] assists only prior to or following the activity. 4-Supervision or Touching Assistance-helper provides verbal cues and/or touching/steadying and/or contact guard assistance as patient completes activity. Assistance may be provided throughout the activity or intermittently. 3-Partial/Moderate Assistance-helper does LESS THAN HALF the effort. [place] lifts, holds or supports trunk or limbs, but provides less than half the effort. 2-Substantial/Maximal Assistance-helper does MORE THAN HALF the effort. [place] lifts or holds trunk or limbs and provides more than half the effort. 4-Cgkwrahfn-mqvbqq does ALL the effort. Patient does none of the effort to complete the activity. Or, the assistance of 2 or more helpers is required for the patient to complete the activity. If activity was not attempted, code reason: 7-Patient Refused. 9-Not Applicable-not attempted and the patient did not perform the activity before the current illness, exacerbation or injury. 10-Not Attempted due to Environmental Limitations-(lack of equipment, weather restraints, etc.). 88-Not Attempted due to Medical Conditions or Safety Concerns. Sit to Stand (QC): 5 Weight Bearing Full Weight Bearing Full Weight Bearing Gait Training Does the Patient Walk?: Yes Distance: 60' x 2 30' x 2 Walk 10 feet (QC): 5 Walk 50 ft with 2 Turns(QC): 5 Gait Persons Needed: 1 Gait Assistive Device: FWW Exercises Standing: Marching, Mini squats Standing Reps: 12 Treatments Pt TF from recliner and amb to green chairs O2 91% HR 75. Amb to // bars and O2 93%. Performs standing exs, then needs rest break then amb back to green chairs O2 91% HR 80. Amb back to room TF to recliner. Assessment Current Status: Good Progress Pt got fatigued very quickly when performing exs in // bars but this resolved after short rest break. Pt amb w/ increased kyphotic curve and after rest breaks pt step length is improved but starts to fatigue quickly and step length shortens. Pt reported no dizziness upon standing this afternoon. Pt TF back to recliner call light nearby all needs met. 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 Nursing Home Goals PT Nursing Home Goals Time Frame: February 24, 2021 Roll Left & Right (QC): 6 Sit to Lying (QC): 6 Lying-Sitting on Side/Bed(QC): 6 Sit to Stand (QC): 6 Chair/Usu-od-Mrzve Xfer(QC): 6 Toilet Transfer (QC): 6 Car Transfer (QC): 6 Does the Patient Walk: Yes Walk 10 feet (QC): 6 Walk 50ft with 2 Turns (QC): 6 Walk 150 ft (QC): 6 Walking 10ft on Uneven Surface: 6 1 Step (curb) (QC): 6 4 Steps (QC): 6 12 Steps (QC): 5 Picking up an Object (QC): 6 Does the Pt use WC or Scooter?: No Wheel 50 feet with 2 turns (QC: 9 Wheel 150 feet: 9 PT Plan Problem List Problem List: Activity Tolerance, Functional Strength Treatment/Plan Treatment Plan: Continue Plan of Care Treatment Plan: Bed Mobility, Concurrent Therapy, Functional Activity Jennifer, Functional Strength, Group Therapy, Gait, Safety, Therapeutic Exercise, Transfers Treatment Duration: February 24, 2021 Frequency: At least 5 of 7 days/Wk (IRF) Estimated Hrs Per Day: 1.5 hours per day Patient and/or Family Agrees t: Yes Safety Risks/Education Patient Education: Correct Positioning Teaching Recipient: Patient Teaching Methods: Demonstration, Discussion Response to Teaching: Verbalize Understanding, Return Demonstration Time/GCodes Time In: 1330 Time Out: 1400 Total Billed Treatment Time: 30 Total Billed Treatment 1, GT 15m, EX 15m BRIDGER LUCAS RELIABILITY TECHNICIANS Feb 16, 2021 15:16
[2021-02-16] MEDS: TAMSULOSIN 0.4 MG (FLOMAX) CAP PO SCH (17:13)
[2021-02-16 19:22] VITALS: BP 175/72
[2021-02-16] MEDS: ACETAMINOPHEN 500 MG TAB (TYLENOL) PO PRN (23:18)
[2021-02-17] MEDS: BETHANECHOL 25 MG (URECHOLINE) TAB PO SCH ×4 (06:26→20:35)
[2021-02-17] MEDS: predniSONE 20 MG TAB PO SCH (06:26)
[2021-02-17 07:24] VITALS: BP 175/72
[2021-02-17 07:29] VITALS: BP 156/69
--- NOTE | 2021-02-17 07:58 | Physical Therapy Daily Note ---
PT Daily Note-Current Subjective Pt.in bed just after breakfast , states he is frustrated as he has not been able to go to the bathroom, BM or urination and is so uncomfortable. Pt. agrees to got to bathroom and walk a short distance Pain Location: No Pain Reported Mental Status Patient Orientation: Normal For Age Attachments: Oxygen (4L) Transfers SCALE: Activities may be completed with or without assistive devices. 7-Qiqimymhyp-ulcxneo completes the activity by him/herself with no assistance from a helper. 5-Set-up or Clean-up Assistance-helper sets up or cleans up; patient completes activity. [place] assists only prior to or following the activity. 4-Supervision or Touching Assistance-helper provides verbal cues and/or touching/steadying and/or contact guard assistance as patient completes activity. Assistance may be provided throughout the activity or intermittently. 3-Partial/Moderate Assistance-helper does LESS THAN HALF the effort. [place] lifts, holds or supports trunk or limbs, but provides less than half the effort. 2-Substantial/Maximal Assistance-helper does MORE THAN HALF the effort. [place] lifts or holds trunk or limbs and provides more than half the effort. 9-Wqrnceqrn-qvnsrk does ALL the effort. Patient does none of the effort to complete the activity. Or, the assistance of 2 or more helpers is required for the patient to complete the activity. If activity was not attempted, code reason: 7-Patient Refused. 9-Not Applicable-not attempted and the patient did not perform the activity before the current illness, exacerbation or injury. 10-Not Attempted due to Environmental Limitations-(lack of equipment, weather restraints, etc.). 88-Not Attempted due to Medical Conditions or Safety Concerns. rolling and in out bed SBA, sit to stand SBA Weight Bearing Full Weight Bearing Full Weight Bearing Gait Training Does the Patient Walk?: Yes Walk 10 feet (QC): 5 Walk 50 ft with 2 Turns(QC): 5 Gait Persons Needed: 1 Gait Assistive Device: FWW no LOB, flexed over FWW ,needed mod assist to manage O2 tubing for safety Exercises Supine Ex: Ankle pumps, Rolling, Heel Slides, Hip abd/add Supine Reps: 10 Treatments pt. with c/o abdominal discomfort but states he was unable to relieve himself and has been uncomfortable all night. 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 Jail Goals PT Jail Goals Time Frame: February 24, 2021 Roll Left & Right (QC): 6 Sit to Lying (QC): 6 Lying-Sitting on Side/Bed(QC): 6 Sit to Stand (QC): 6 Chair/Rxu-jj-Djwum Xfer(QC): 6 Toilet Transfer (QC): 6 Car Transfer (QC): 6 Does the Patient Walk: Yes Walk 10 feet (QC): 6 Walk 50ft with 2 Turns (QC): 6 Walk 150 ft (QC): 6 Walking 10ft on Uneven Surface: 6 1 Step (curb) (QC): 6 4 Steps (QC): 6 12 Steps (QC): 5 Picking up an Object (QC): 6 Does the Pt use WC or Scooter?: No Wheel 50 feet with 2 turns (QC: 9 Wheel 150 feet: 9 PT Plan Treatment/Plan Treatment Plan: Continue Plan of Care Treatment Plan: Bed Mobility, Concurrent Therapy, Functional Activity Jennifer, Functional Strength, Group Therapy, Gait, Safety, Therapeutic Exercise, Transfers Treatment Duration: February 24, 2021 Frequency: At least 5 of 7 days/Wk (IRF) Estimated Hrs Per Day: 1.5 hours per day Patient and/or Family Agrees t: Yes Safety Risks/Education Patient Education: Gait Training, Transfer Techniques, Correct Positioning, Safety Issues (O2) Teaching Recipient: Patient Teaching Methods: Discussion Response to Teaching: Reinforcement Needed Time/GCodes Time In: 735 Time Out: 755 Total Billed Treatment Time: 20 Total Billed Treatment 1,FA20m BRIDGER LUCAS SHEEP OR CALF GRADER Feb 17, 2021 07:58
[2021-02-17] MEDS: RT-ALBUTEROL/IPRATROPIUM 3 ML (DUONEB) VIAL INH SCH ×2 (08:02→21:19)
[2021-02-17] MEDS: dilTIAZem120 MG (CARDIZEM CD) CAP PO SCH (08:34)
[2021-02-17] MEDS: DIGOXIN 0.125 MG (LANOXIN) TAB PO SCH (08:34)
[2021-02-17] MEDS: AMIODARONE 200 MG (CORDARONE) TAB PO SCH (08:34)
[2021-02-17] MEDS: SENNA W/DOCUSATE (SENOKOT S) TABLET PO SCH ×2 (08:34→20:35)
[2021-02-17] MEDS: FUROSEMIDE 40 MG (LASIX) TAB PO SCH (08:34)
[2021-02-17] MEDS: DOCUSATE SODIUM 100 MG (COLACE) CAP PO SCH ×2 (08:34→20:35)
[2021-02-17] MEDS: polyethylene glycoL POWDER 17 GM (MIRALAX) PACK PO SCH ×2 (08:35→20:28)
[2021-02-17] MEDS: APIXABAN 2.5 MG (ELIQUIS) TABLET PO SCH ×2 (08:35→20:35)
[2021-02-17] MEDS: LACTOBACILLUS ACIDOPHILUS (PROBIOTIC) CAPSULE PO SCH ×3 (08:36→18:35)
[2021-02-17] MEDS: ACETAMINOPHEN 500 MG TAB (TYLENOL) PO PRN (09:12)
--- NOTE | 2021-02-17 12:53 | PM&R Progress Note ---
Subjective HPI/CC On Admission Date Seen by Provider: Feb 17, 2021 Time Seen by Provider: 11:30 Subjective/Events-last exam 02/17/21: Patient doing well Urinary frequency noted No cath needed since minimal PVR BM+ O2 maintained 02/16/21: Doing well Very weak O2 maintained and desats with activity PVR minimal Urinary frequency is better 02/15/21: Patient doing better Lungs remain clear Urination is an issue will reach out to Dr Simmons O2 maintained 02/14/21: Pt doing better Has some questions about Flomax making him urinate more so will reach out to Dr. Simmons, his regular urologist Bowels are moving pretty well Ditch level was checked and it was okay Pt a bit cranky at times 02/13/21: Pt cranky and having difficulty getting what he likes for breakfast Remains on 5 liters of O2 Bowels are moving BP better today at 134/67 02/12/21: Pt doing a lot better Will discontinue Acu-check since 3 units of insulin made him go really low BP is elevated today 02/11/21: Patient is doing well and daughter at the bedside Feels good Lungs sound good Completed abx WBC 11.7 hgb 8.[address] BM yesterday Review of Systems General: Fatigue, Malaise Pulmonary: Dyspnea Genitourinary: Frequency Neurological: Weakness Objective Exam Vital Signs Vital Signs Date Time Temp Pulse Resp B/P (MAP) Pulse Ox O2 Delivery O2 Flow Rate FiO2 02/17/21 20:28 High Flow N/C 3.00 02/17/21 19:37 35.4 72 20 159/68 (98) 95 02/17/21 07:24 28 Capillary Refill : General Appearance: No Apparent Distress, WD/WN, Chronically ill, Thin HEENT: PERRL/EOMI, Normal ENT Inspection, Pharynx Normal Neck: Full Range of Motion, Normal Inspection, Non Tender, Supple, Carotid Bruit Respiratory: Chest Non Tender, No Accessory Muscle Use, No Respiratory Distress, Crackles, Decreased Breath Sounds Cardiovascular: Regular Rate, Rhythm, No Edema, No Gallop, No JVD, No Murmur, Normal Peripheral Pulses Gastrointestinal: Normal Bowel Sounds, No Organomegaly, No Pulsatile Mass, Non Tender, Soft Back: Normal Inspection, No CVA Tenderness, No Vertebral Tenderness Extremity: Normal Capillary Refill, Normal Inspection, Normal Range of Motion, Non Tender, No Calf Tenderness, No Pedal Edema Neurologic/Psychiatric: Alert, Oriented x3, No Motor/Sensory Deficits, lathe scalper operator II- XII Norm as Tested, Abnormal Gait, Depressed Affect, Motor Weakness (lower extremities 4/5) Skin: Normal Color, Warm/Dry Lymphatic: No Adenopathy Results/Procedures Lab Patient resulted labs reviewed. FIM Transfers Therapy Code Descriptions/Definitions Functional [place] Measure: 0=Not Assessed/NA 4=Minimal Assistance 1=Total Assistance 5=Supervision or Setup 2=Maximal Assistance 6=Modified [place] 3=Moderate Assistance 7=Complete IndependenceSCALE: Activities may be completed with or without assistive devices. 1-Jiihmqgnuo-jmhtpst completes the activity by him/herself with no assistance from a helper. 5-Set-up or Clean-up Assistance-helper sets up or cleans up; patient completes activity. [place] assists only prior to or following the activity. 4-Supervision or Touching Assistance-helper provides verbal cues and/or touching/steadying and/or contact guard assistance as patient completes act ivity. Assistance may be provided throughout the activity or intermittently. 3-Partial/Moderate Assistance-helper does LESS THAN HALF the effort. [place] lifts, holds or supports trunk or limbs, but provides less than half the effort. 2-Substantial/Maximal Assistance-helper does MORE THAN HALF the effort. [place] lifts or holds trunk or limbs and provides more than half the effort. 5-Ukzkhkzsl-zndhhq does ALL the effort. Patient does none of the effort to complete the activity. Or, the assistance of 2 or more helpers is required for the patient to complete the activity. If activity was not attempted, code reason: 7-Patient Refused. 9-Not Applicable-not attempted and the patient did not perform the activity before the current illness, exacerbation or injury. 10-Not Attempted due to Environmental Limitations-(lack of equipment, weather restraints, etc.). 88-Not Attempted due to Medical Conditions or Safety Concerns. Roll Left to Right (QC): 5 Sit to Lying (QC): 5 Sit to Stand (QC): 5 Chair/Eet-ya-Xfgmg Xfer(QC): 5 Car Transfer (QC): 5 Gait Training Does the Patient Walk?: Yes Distance: 60' x 2 30' x 2 Walk 10 feet (QC): 5 Walk 50 ft with 2 Turns(QC): 5 Walk 150 ft (QC): 5 Walking 10ft/uneven surface-QC: 5 Gait Persons Needed: 1 Gait Assistive Device: FWW Wheelchair Training Does the Pt Use a Wheelchair?: No Wheel 50 ft with 2 turns (QC): 9 Wheel 150 ft (QC): 9 Stair Training Stair Training: Handrails/: 2 handrails #of Steps: 4 1 Step (curb) (QC): 5 4 Steps (QC): 4 12 Steps (QC): 88 Stairs: Pattern: Step to Balance Picking up an Object (QC): 88 ADL-Treatment Eating (QC): 5 Oral Hygiene (QC): 6 Bathing Location: L Arm, R Arm, L Upper Leg, R Upper Leg, Chest, Abdomen, Buttocks, Perineal Area Shower/Bathe Self (QC): 3 Upper Body Dressing (QC): 5 Lower Body Dressing (QC): 3 On/Off Footwear (QC): 2 Toileting Hygiene (QC): 6 Toilet Transfer (QC): 6 Assessment/Plan Assessment and Plan Assess & Plan/Chief Complaint Assessment: COPD myopathy Acute on chronic hypoxic respiratory failure AECOPD Severe COPD at baseline pAF HTN Orthostatic hypotension DM BPH Plan: IRF protocol Nebs O2 COmpleted abx Monitor labs 02/11/21: Monitor closely O2 maintained nebs 02/12/21: Monitor lung status Nebs O2 02/13/21: Monitor lungs Monitor BP Fall risk 02/14/21: Monitor lungs Dr Simmons to eval Flomax 02/15/21: O2 maintained Monitor closely 02/16/21: Monitor closely O2 Monitor urinary status 02/17/21: Maintained O2 Manage urinary frequency per Dr Simmons (1) Myopathy (2) Atrial fibrillation with RVR Status: Acute (3) T2DM (type 2 diabetes mellitus) Status: Chronic (4) Acute and chronic respiratory failure with hypoxia Status: Acute (5) Orthostatic hypotension Status: Acute (6) COPD with exacerbation Status: Acute (7) General weakness Status: Acute (8) Dyspnea MARY LAMBERT DO Feb 17, 2021 12:53
--- NOTE | 2021-02-17 15:31 | Progress Note - Cardiology ---
Cardiology SOAP Progress Note Subjective: No cp or palp or syncope Shortness of breath and malaise present but improving No n/v/d Objective: I&O/Vital Signs 02/17/21 02/17/21 02/17/21 02/17/21 07:00 07:24 07:29 08:02 Temp 36.8 37.2 Pulse 75 75 84 Resp 20 B/P (MAP) 156/69 (98) Pulse Ox 96 90 93 O2 Delivery High Flow N/C Nasal Cannula O2 Flow Rate 3.00 3.00 FiO2 28 02/17/21 02/17/21 09:00 12:31 Pulse 69 O2 Delivery High Flow N/C O2 Flow Rate 3.00 02/17/21 00:00 Intake Total 720 ml Output Total 1050 ml Balance -330 ml Weight (Pounds): 140 Weight (Ounces): 0.0 Weight (Calculated Kilograms): 63.427803 Constitutional: AAO x 3, well-developed, other (Thin- and frail-appearing) Respiratory: No accessory muscle use; chest is bilaterally symmetric, other (fair to good, bilateal air entry) Cardiovascular: regular rate-rhythm, S1 and S2, systolic murmur (2-3/6 MSM) Gastrointestional: No tender; soft; No guarding; audible bowel sounds Extremities: no lower extremity edema bilateral Neurologic/Psychiatric: alert, normal mood/affect, oriented x 3, other (moves all limbs equally) Skin: normal color; No rash on exposed areas, No ulcerations on exposed areas A/P: Assessment: PAF, maintaining NSR on amiodarone. 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 Anemia, managed by Dr Harrison History of chest pain, last stress test done in November 2017 showing no ischemi a or infarction. 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
[2021-02-17] MEDS: TAMSULOSIN 0.4 MG (FLOMAX) CAP PO SCH (18:35)
[2021-02-17 19:37] VITALS: BP 159/68
[2021-02-18] MEDS: ACETAMINOPHEN 500 MG TAB (TYLENOL) PO PRN ×2 (01:33→10:56)
[2021-02-18] MEDS: BETHANECHOL 25 MG (URECHOLINE) TAB PO SCH ×3 (06:10→17:40)
[2021-02-18] MEDS: predniSONE 20 MG TAB PO SCH (06:10)
[2021-02-18 06:25] LABS: BASOPHILS % (AUTO) 0 % (0-10); EOSINOPHILS % (AUTO) 0 % (0-10); HEMATOCRIT 28 % (40-54); HEMOGLOBIN 8.8 g/dL (13.3-17.7); LYMPHOCYTES # (AUTO) 0.9 10^3/uL (1.0-4.0); LYMPHOCYTES % (AUTO) 4 % (12-44); MEAN CORPUSCULAR HEMOGLOBIN 26 pg (25-34); MEAN CORPUSCULAR HGB CONC 31 g/dL (32-36); MEAN CORPUSCULAR VOLUME 84 fL (80-99); MEAN PLATELET VOLUME 9.6 fL (9.0-12.2); MONOCYTES # (AUTO) 1.2 10^3/uL (0.0-1.0); MONOCYTES % (AUTO) 5 % (0-12); NEUTROPHILS # (AUTO) 20.6 10^3/uL (1.8-7.8); NEUTROPHILS % (AUTO) 90 % (42-75); PLATELET COUNT 314 10^3/uL (130-400); WHITE BLOOD COUNT 22.9 10^3/uL (4.3-11.0)
--- NOTE | 2021-02-18 06:26 | PM&R Progress Note ---
Subjective HPI/CC On Admission Date Seen by Provider: Feb 18, 2021 Time Seen by Provider: 12:00 Subjective/Events-last exam 02/18/21: Fever noted last night at 0100 Checked labs and CXR and findings c/w PNA recurrent in type Vanc and Meropenem started PCT 0.34 Updated patient and 02/17/21: Patient doing well Urinary frequency noted No cath needed since minimal PVR BM+ O2 maintained 02/16/21: Doing well Very weak O2 maintained and desats with activity PVR minimal Urinary frequency is better 02/15/21: Patient doing better Lungs remain clear Urination is an issue will reach out to Dr Simmons O2 maintained 02/14/21: Pt doing better Has some questions about Flomax making him urinate more so will reach out to Dr. Simmons, his regular urologist Bowels are moving pretty well Ditch level was checked and it was okay Pt a bit cranky at times 02/13/21: Pt cranky and having difficulty getting what he likes for breakfast Remains on 5 liters of O2 Bowels are moving BP better today at 134/67 02/12/21: Pt doing a lot better Will discontinue Acu-check since 3 units of insulin made him go really low BP is elevated today 02/11/21: Patient is doing well and daughter at the bedside Feels good Lungs sound good Completed abx WBC 11.7 hgb 8.[address] BM yesterday Review of Systems General: Fatigue, Malaise Pulmonary: Dyspnea, Cough Neurological: Weakness Focused Exam Lactate Level 02/18/21 06:05: Lactic Acid Level 1.68 Lactic Acid Level Objective Exam Vital Signs Vital Signs Date Time Temp Pulse Resp B/P (MAP) Pulse Ox O2 Delivery O2 Flow Rate FiO2 02/18/21 12:00 36.3 73 20 146/65 (92) 96 High Flow N/C 3.00 02/17/21 07:24 28 Capillary Refill : General Appearance: No Apparent Distress, WD/WN, Chronically ill, Thin HEENT: PERRL/EOMI, Normal ENT Inspection, Pharynx Normal Neck: Full Range of Motion, Normal Inspection, Non Tender, Supple, Carotid Bruit Respiratory: Chest Non Tender, No Accessory Muscle Use, No Respiratory Distress, Crackles, Decreased Breath Sounds Cardiovascular: Regular Rate, Rhythm, No Edema, No Gallop, No JVD, No Murmur, Normal Peripheral Pulses Gastrointestinal: Normal Bowel Sounds, No Organomegaly, No Pulsatile Mass, Non Tender, Soft Back: Normal Inspection, No CVA Tenderness, No Vertebral Tenderness Extremity: Normal Capillary Refill, Normal Inspection, Normal Range of Motion, Non Tender, No Calf Tenderness, No Pedal Edema Neurologic/Psychiatric: Alert, Oriented x3, No Motor/Sensory Deficits, peoplesoft taleo manager II- XII Norm as Tested, Abnormal Gait, Depressed Affect, Motor Weakness (lower extremities 4/5) Skin: Normal Color, Warm/Dry Lymphatic: No Adenopathy Results/Procedures Lab Laboratory Tests 02/18/21 06:05 Patient resulted labs reviewed. FIM Transfers Therapy Code Descriptions/Definitions Functional Carbon Measure: 0=Not Assessed/NA 4=Minimal Assistance 1=Total Assistance 5=Supervision or Setup 2=Maximal Assistance 6=Modified Carbon 3=Moderate Assistance 7=Complete IndependenceSCALE: Activities may be completed with or without assistive devices. 0-Dofxjkkfex-kiqvnoo completes the activity by him/herself with no assistance from a helper. 5-Set-up or Clean-up Assistance-helper sets up or cleans up; patient completes activity. [place] assists only prior to or following the activity. 4-Supervision or Touching Assistance-helper provides verbal cues and/or touching/steadying and/or contact guard assistance as patient completes activity. Assistance may be provided throughout the activity or intermittently. 3-Partial/Moderate Assistance-helper does LESS THAN HALF the effort. [place] lifts, holds or supports trunk or limbs, but provides less than half the effort. 2-Substantial/Maximal Assistance-helper does MORE THAN HALF the effort. [place] lifts or holds trunk or limbs and provides more than half the effort. 4-Ickdtusoa-zpqqvz does ALL the effort. Patient does none of the effort to complete the activity. Or, the assistance of 2 or more helpers is required for the patient to complete the activity. If activity was not attempted, code reason: 7-Patient Refused. 9-Not Applicable-not attempted and the patient did not perform the activity before the current illness, exacerbation or injury. 10-Not Attempted due to Environmental Limitations-(lack of equipment, weather restraints, etc.). 88-Not Attempted due to Medical Conditions or Safety Concerns. Roll Left to Right (QC): 5 Sit to Lying (QC): 5 Sit to Stand (QC): 5 Chair/Tdo-wf-Iddrb Xfer(QC): 5 Car Transfer (QC): 5 Gait Training Does the Patient Walk?: Yes Distance: 60' x 2 30' x 2 Walk 10 feet (QC): 5 Walk 50 ft with 2 Turns(QC): 5 Walk 150 ft (QC): 5 Walking 10ft/uneven surface-QC: 5 Gait Persons Needed: 1 Gait Assistive Device: FWW Wheelchair Training Does the Pt Use a Wheelchair?: No Wheel 50 ft with 2 turns (QC): 9 Wheel 150 ft (QC): 9 Stair Training Stair Training: Handrails/: 2 handrails #of Steps: 4 1 Step (curb) (QC): 5 4 Steps (QC): 4 12 Steps (QC): 88 Stairs: Pattern: Step to Balance Picking up an Object (QC): 88 ADL-Treatment Eating (QC): 5 Oral Hygiene (QC): 6 Bathing Location: L Arm, R Arm, L Upper Leg, R Upper Leg, Chest, Abdomen, Buttocks, Perineal Area Shower/Bathe Self (QC): 3 Upper Body Dressing (QC): 5 Lower Body Dressing (QC): 3 On/Off Footwear (QC): 2 Toileting Hygiene (QC): 6 Toilet Transfer (QC): 6 Assessment/Plan Assessment and Plan Assess & Plan/Chief Complaint Assessment: COPD myopathy Acute on chronic hypoxic respiratory failure AECOPD Severe COPD at baseline pAF HTN Orthostatic hypotension DM BPH Plan: IRF protocol Nebs O2 COmpleted abx Monitor labs 02/11/21: Monitor closely O2 maintained nebs 02/12/21: Monitor lung status Nebs O2 02/13/21: Monitor lungs Monitor BP Fall risk 02/14/21: Monitor lungs Dr Simmons to eval Flomax 02/15/21: O2 maintained Monitor closely 02/16/21: Monitor closely O2 Monitor urinary status 02/17/21: Maintained O2 Manage urinary frequency per Dr Simmons 02/18/21: IV abx PNA dx Monitor labs (1) Myopathy (2) Atrial fibrillation with RVR Status: Acute (3) T2DM (type 2 diabetes mellitus) Status: Chronic (4) Acute and chronic respiratory failure with hypoxia Status: Acute (5) Orthostatic hypotension Status: Acute (6) COPD with exacerbation Status: Acute (7) General weakness Status: Acute (8) Dyspnea MARY LAMBERT DO Feb 18, 2021 06:26
[2021-02-18 06:43] LABS: ANISOCYTOSIS MODERATE; LYMPHOCYTES % (MANUAL) 2 %; MICROCYTOSIS SLIGHT; MONOCYTES % (MANUAL) 3 %; NEUTROPHILS % (MANUAL) 95 %; POIKILOCYTOSIS SLIGHT
[2021-02-18 06:48] LABS: ALANINE AMINOTRANSFERASE 49 U/L (0-55); ALBUMIN 2.8 GM/DL (3.2-4.5); ALKALINE PHOSPHATASE 62 U/L (40-136); BILIRUBIN,TOTAL 0.5 MG/DL (0.1-1.0); BUN/CREATININE RATIO 23; CALCIUM 8.7 MG/DL (8.5-10.1); CARBON DIOXIDE 31 MMOL/L (21-32); CHLORIDE 94 MMOL/L (98-107); CREATININE SERUM 0.81 MG/DL (0.60-1.30); GFR ESTIMATED > 60; GLUCOSE 85 MG/DL (70-105); SODIUM 132 MMOL/L (135-145); TOTAL PROTEIN 5.4 GM/DL (6.4-8.2)
[2021-02-18 07:06] VITALS: BP 153/70
[2021-02-18] MEDS: AMIODARONE 200 MG (CORDARONE) TAB PO SCH (08:04)
[2021-02-18] MEDS: dilTIAZem120 MG (CARDIZEM CD) CAP PO SCH (08:04)
[2021-02-18] MEDS: FUROSEMIDE 40 MG (LASIX) TAB PO SCH (08:04)
[2021-02-18] MEDS: APIXABAN 2.5 MG (ELIQUIS) TABLET PO SCH (08:04)
[2021-02-18] MEDS: LACTOBACILLUS ACIDOPHILUS (PROBIOTIC) CAPSULE PO SCH ×3 (08:04→17:40)
[2021-02-18] MEDS: SENNA W/DOCUSATE (SENOKOT S) TABLET PO SCH (08:04)
[2021-02-18] MEDS: DOCUSATE SODIUM 100 MG (COLACE) CAP PO SCH (08:04)
[2021-02-18] MEDS: DIGOXIN 0.125 MG (LANOXIN) TAB PO SCH (08:04)
[2021-02-18] MEDS: polyethylene glycoL POWDER 17 GM (MIRALAX) PACK PO SCH ×2 (08:06→19:28)
[2021-02-18 08:24] LABS: BILIRUBIN,URINE NEGATIVE (NEGATIVE); CLARITY,URINE CLEAR; COLOR,URINE YELLOW; GLUCOSE, URINE (UA) NEGATIVE (NEGATIVE); KETONES,URINE NEGATIVE (NEGATIVE); LEUKOCYTE ESTERASE ,URINE 1+ (NEGATIVE); NITRITE,URINE NEGATIVE (NEGATIVE); PROTEIN,URINE NEGATIVE (NEGATIVE)
--- NOTE | 2021-02-18 08:45 | Diagnostic Imaging Report ---
INDICATION: Fever COMPARISON: 02/07/2021 TECHNIQUE: Single radiograph of the chest dated 02/18/2021 FINDINGS: The cardiac silhouette is stable. Pulmonary vasculature is predominantly obscured. Extensive bilateral pulmonary opacities are again identified, relatively stable from the prior examination. No large volume pleural effusion. No pneumothorax. Osseous structures appear stable. IMPRESSION: Persisting and relatively stable extensive bilateral pulmonary infiltrates. Dictated by: Dictated on workstation # [id number]
[2021-02-18] MEDS ORDERED: ANIDULAFUNGIN INJECTION 200 MG in NS (IVPB) 250 ML IV ONE (09:00)
[2021-02-18] MEDS ORDERED: ANIDULAFUNGIN INJECTION 100 MG in NS (IVPB) 100 ML IV SCH (09:00)
[2021-02-18] MEDS ORDERED: NS IV 1000 ML 1,000 ML IV SCH (09:00)
[2021-02-18 09:11] LABS: BACTERIA,URINE NEGATIVE /HPF; SQUAMOUS EPITHELIAL CELL,UR 0-2 /HPF
[2021-02-18 09:12] LABS: YEAST,URINE MODERATE /HPF
[2021-02-18] MEDS: RT-ALBUTEROL/IPRATROPIUM 3 ML (DUONEB) VIAL INH SCH (09:22)
[2021-02-18] MEDS: MEROPENEM 1,000 MG in WATER (STERILE) FOR INJECTION 20 ML IV SCH ×2 (09:36→17:40)
[2021-02-18] MEDS ORDERED: VANCOMYCIN INJECTION 1,000 MG in NS (IVPB) 250 ML IV NR (10:00)
[2021-02-18 12:00] VITALS: BP 146/65
[2021-02-18] MEDS: TAMSULOSIN 0.4 MG (FLOMAX) CAP PO SCH (17:40)
--- NOTE | 2021-02-18 20:13 | Discharge Summary ---
Diagnosis/Chief Complaint Date of Admission Feb 10, 2021 at 09:37 Date of Discharge Discharge Diagnosis HAP with respiratory distress requiring transfer to ICU Severe COPD Acute on chronic resp failure O2 dependence Discharge Summary Discharge Physical Examination Allergies: Coded Allergies: No Known Drug Allergies (Unverified , 06/15/20) Vitals & I&Os Vital Signs Date Time Temp Pulse Resp B/P (MAP) Pulse Ox O2 Delivery O2 Flow Rate FiO2 02/18/21 20:27 37.0 84 28 147/69 (95) 84 High Flow N/C 4.00 02/17/21 07:24 28 General Appearance: Alert, Moderate Distress, Other (confused, on bipap) Cardiovascular: Regular Rate Hospital Course Was the Problem List Reviewed?: Yes Standard IRF course after admitted from 4th floor after PNA and COPD myopathy. He did very well while in patient and had no concerns except urinary frequency of which Dr Simmons managed. Patient had completed abx. O2 maintained. Fever started Friday morning at 0100 and labs revealed PNA without sepsis so gentle IVF started along with Dany and Vanc empirically. Patient declined rapidly in the evening after he had done very well all day and required RT placement of biPAP so he was moved to ICU and Dr Rios notified. Patient is a DNI. Labs (last 24 hrs) Laboratory Tests 02/10/21 10:59: Glucometer 138H 02/10/21 15:48: Glucometer 179H 02/10/21 20:34: Glucometer 142H 02/11/21 04:45: White Blood Count 11.7H, Red Blood Count 3.20L, Hemoglobin 8.6L, Hematocrit 27L, Mean Corpuscular Volume 85, Mean Corpuscular Hemoglobin 27, Mean Corpuscular Hemoglobin Concent 32, Red Cell Distribution Width 17.6H, Platelet Count 377, Mean Platelet Volume 9.7, Immature Granulocyte % (Auto) 1, Neutrophils (%) (Auto) 77H, Lymphocytes (%) (Auto) 13, Monocytes (%) (Auto) 9, Eosinophils (%) (Auto) 1, Basophils (%) (Auto) 0, Neutrophils # (Auto) 9.1H, Lymphocytes # (Auto) 1.5, Monocytes # (Auto) 1.0, Eosinophils # (Auto) 0.1, Basophils # (Auto) 0.0, Immature Granulocyte # (Auto) 0.1, Sodium Level 135, Potassium Level 3.5L, Chloride Level 98, Carbon Dioxide Level 26, Anion Gap 11, Blood Urea Nitrogen 20H, Creatinine 0.84, Estimat Glomerular Filtration Rate > 60, BUN/Creatinine Ratio 24, Glucose Level 75, Calcium Level 8.2L, Corrected Calcium 9.2, Iron Level 20L, Total Bilirubin 0.4, Aspartate Amino Transf (AST/SGOT) 40H, Alanine Aminotransferase (ALT/SGPT) 68H, Alkaline Phosphatase 64, Total Protein 5.5L, Albumin 2.8L 02/11/21 10:45: Glucometer 125H 02/11/21 15:17: Glucometer 168H 02/11/21 20:06: Glucometer 190H 02/12/21 01:15: Glucometer 85 02/12/21 02:25: Glucometer 79 02/12/21 05:52: Glucometer 64L 02/12/21 06:48: Glucometer 129H 02/14/21 05:16: Digoxin Level 1.05 02/18/21 06:05: White Blood Count 22.9H, Red Blood Count 3.36L, Hemoglobin 8.8L, Hematocrit 28L, Mean Corpuscular Volume 84, Mean Corpuscular Hemoglobin 26, Mean Corpuscular Hemoglobin Concent 31L, Red Cell Distribution Width 17.8H, Platelet Count 314, Mean Platelet Volume 9.6, Immature Granulocyte % (Auto) 1, Neutrophils (%) (Aut o) 90H, Lymphocytes (%) (Auto) 4L, Monocytes (%) (Auto) 5, Eosinophils (%) (Auto) 0, Basophils (%) (Auto) 0, Neutrophils # (Auto) 20.6H, Lymphocytes # (Auto) 0.9L, Monocytes # (Auto) 1.2H, Eosinophils # (Auto) 0.0, Basophils # (Auto) 0.0, Immature Granulocyte # (Auto) 0.2H, Neutrophils % (Manual) 95, Lymphocytes % (Manual) 2, Monocytes % (Manual) 3, Polychromasia , Poikilocytosis SLIGHT, Anisocytosis MODERATE, Microcytosis SLIGHT, Macrocytosis SLIGHT, Sodium Level 132L, Potassium Level 4.0, Chloride Level 94L, Carbon Dioxide Level 31, Anion Gap 7, Blood Urea Nitrogen 19H, Creatinine 0.81, Estimat Glomerular Filtration Rate > 60, BUN/Creatinine Ratio 23, Glucose Level 85, Lactic Acid Level 1.68, Calcium Level 8.7, Corrected Calcium 9.7, Total Bilirubin 0.5, Aspartate Amino Transf (AST/SGOT) 27, Alanine Aminotransferase (ALT/SGPT) 49, A lkaline Phosphatase 62, Total Protein 5.4L, Albumin 2.8L, Procalcitonin 0.34H 02/18/21 08:12: Urine Color YELLOW, Urine Clarity CLEAR, Urine pH 6.0, Urine Specific [place] 1.020, Urine Protein NEGATIVE, Urine Glucose (UA) NEGATIVE, Urine Ketones NEGATIVE, Urine Nitrite NEGATIVE, Urine Bilirubin NEGATIVE, Urine Urobilinogen 0.2, Urine Leukocyte Esterase 1+H, Urine RBC (Auto) 2+H, Urine RBC 2-5H, Urine WBC 2-5, Urine Squamous Epithelial Cells 0-2, Urine Crystals NONE, Urine Bacteria NEGATIVE, Urine Casts NONE, Urine Mucus NEGATIVE, Urine Yeast MODERATEH , Urine Culture Indicated YES Pending Labs Laboratory Tests 02/10/21 10:59: Glucometer 138 02/10/21 15:48: Glucometer 179 02/10/21 20:34: Glucometer 142 02/11/21 04:45: White Blood Count 11.7, Red Blood Count 3.20, Hemoglobin 8.6, Hematocrit 27, Mean Corpuscular Volume 85, Mean Corpuscular Hemoglobin 27, Mean Corpuscular Hemoglobin Concent 32, Red Cell Distribution Width 17.6, Platelet Count 377, Mean Platelet Volume 9.7, Immature Granulocyte % (Auto) 1, Neutrophils (%) (Auto) 77, Lymphocytes (%) (Auto) 13, Monocytes (%) (Auto) 9, Eosinophils (%) (Auto) 1, Basophils (%) (Auto) 0, Neutrophils # (Auto) 9.1, Lymphocytes # (Auto) 1.5, Monocytes # (Auto) 1.0, Eosinophils # (Auto) 0.1, Basophils # (Auto) 0.0, Immature Granulocyte # (Auto) 0.1, Sodium Level 135, Potassium Level 3.5, Chloride Level 98, Carbon Dioxide Level 26, Anion Gap 11, Blood Urea Nitrogen 20, Creatinine 0.84, Estimat Glomerular Filtration Rate > 60, BUN/Creatinine Ratio 24, Glucose Level 75, Calcium Level 8.2, Corrected Calcium 9.2, Iron Level 20, Total Bilirubin 0.4, Aspartate Amino Transf (AST/SGOT) 40, Alanine Aminotransferase (ALT/SGPT) 68, Alkaline Phosphatase 64, Total Protein 5.5, Albumin 2.8 02/11/21 10:45: Glucometer 125 02/11/21 15:17: Glucometer 168 02/11/21 20:06: Glucometer 190 02/12/21 01:15: Glucometer 85 02/12/21 02:25: Glucometer 79 02/12/21 05:52: Glucometer 64 02/12/21 06:48: Glucometer 129 02/14/21 05:16: Digoxin Level 1.05 02/18/21 06:05: White Blood Count 22.9, Red Blood Count 3.36, Hemoglobin 8.8, Hematocrit 28, Mean Corpuscular Volume 84, Mean Corpuscular Hemoglobin 26, Mean Corpuscular Hemoglobin Concent 31, Red Cell Distribution Width 17.8, Platelet Count 314, Mean Platelet Volume 9.6, Immature Granulocyte % (Auto) 1, Neutrophils (%) (Auto) 90, Lymphocytes (%) (Auto) 4, Monocytes (%) (Auto) 5, Eosinophils (%) (Auto) 0, Basophils (%) (Auto) 0, Neutrophils # (Auto) 20.6, Lymphocytes # (Auto) 0.9, Monocytes # (Auto) 1.2, Eosinophils # (Auto) 0.0, Basophils # (Auto) 0.0, Immature Granulocyte # (Auto) 0.2, Neutrophils % (Manual) 95, Lymphocytes % (Manual) 2, Monocytes % (Manual) 3, Polychromasia , Poikilocytosis SLIGHT, Anisocytosis MODERATE, Microcytosis SLIGHT, Macrocytosis SLIGHT, Sodium Level 132, Potassium Level 4.0, Chloride Level 94, Carbon Dioxide Level 31, Anion Gap 7, Blood Urea Nitrogen 19, Creatinine 0.81, Estimat Glomerular Filtration Rate > 60, BUN/Creatinine Ratio 23, Glucose Level 85, Lactic Acid Level 1.68, Calcium Level 8.7, Corrected Calcium 9.7, Total Bilirubin 0.5, Aspartate Amino Transf (AST/SGOT) 27, Alanine Aminotransferase (ALT/SGPT) 49, Alkaline Phosphatase 62, Total Protein 5.4, Albumin 2.8, Procalcitonin 0.34 02/18/21 08:12: Urine Color YELLOW, Urine Clarity CLEAR, Urine pH 6.0, Urine Specific [place] 1.020, Urine Protein NEGATIVE, Urine Glucose (UA) NEGATIVE, Urine Ketones NEGATIVE, Urine Nitrite NEGATIVE, Urine Bilirubin NEGATIVE, Urine Urobilinogen 0.2, Urine Leukocyte Esterase 1+, Urine RBC (Auto) 2+, Urine RBC 2-5, Urine WBC 2-5, Urine Squamous Epithelial Cells 0-2, Urine Crystals NONE, Urine Bacteria NEGATIVE, Urine Casts NONE, Urine Mucus NEGATIVE, Urine Yeast MODERATE, Urine Culture Indicated YES Discharge Home Medications: Active Scripts Active Reported Proair Hfa (Albuterol Sulfate) 1 Puff Puff 2 Puff INH Q6H PRN Miralax (Polyethylene Glycol 3350) 17 Gm Powd.pack 17 Gm PO DAILY PRN Vitamin D3 (Cholecalciferol (Vitamin D3)) 50 Mcg Capsule 50 Mcg PO DAILY Tylenol Extra Strength (Acetaminophen) 500 Mg Tablet 500-1,000 Mg PO Q8H PRN [Bethanechol] 25 Tab 25 Mg PO 0700,1200 LAST FILLED 02-17-2020 #360/180 DAY SUPPLY Amiodarone HCl 200 Mg Tablet 200 Mg PO DAILY Diltiazem ER (Diltiazem HCl) 180 Mg Capsule.er 180 Mg PO DAILY Stool Softener (Docusate Sodium) 100 Mg Capsule 100 Mg PO DAILY PRN Metformin HCl ER (Metformin HCl) 500 Mg Tab.er.24h 500 Mg PO 1800 Eliquis (Apixaban) 2.5 Mg Tablet 2.5 Mg PO BID Alfuzosin HCl ER (Alfuzosin HCl) 10 Mg Tab.er.24h 10 Mg PO DAILY Atorvastatin Calcium 40 Mg Tablet 40 Mg PO HS Instructions to patient/family Please see electronic discharge instructions given to patient. Diagnosis/Problems Diagnosis/Problems (1) Myopathy (2) Atrial fibrillation with RVR Status: Acute (3) T2DM (type 2 diabetes mellitus) Status: Chronic (4) Acute and chronic respiratory failure with hypoxia Status: Acute (5) Orthostatic hypotension Status: Acute (6) COPD with exacerbation Status: Acute (7) General weakness Status: Acute (8) Dyspnea MARY LAMBERT DO Feb 18, 2021 20:13
[2021-02-18 20:27] VITALS: BP 147/69
[2021-02-18] MEDS ORDERED: VANCOMYCIN 500 MG/NS 100 ML IVPB IV SCH ×2 (22:00)
--- NOTE | 2021-02-19 08:28 | Therapy Team Discharge Summary ---
Therapy Discharge Summary Discharge Recommendations Date of Discharge Feb 18, 2021 at 20:10 Therapy D/C Recommendations: 24 hr Supervision Occupational Therapy Pt. was seen in inpt. rehab to increase overall strength and independence with daily tasks. Pt was doing well, but due to change in medical status, discharged to acute setting. Pt. at discharge required assistance to bathe, dress LE, and with footwear due to fatigue. Decreased Activ Tolerance, Impaired I ADL's, Impaired Self-Care Skills PT Residential Goals Assistant Administrator Goals PT Residential Goals Time Frame: February 24, 2021 Roll Left to Right (QC): 6 Sit to Lying (QC): 6 Lying-Sitting on Side/Bed(QC): 6 Sit to Stand (QC): 6 Chair/Dle-vv-Vkgin Xfer(QC): 6 Car Transfer (QC): 6 Does the Patient Walk: Yes Walk 10 feet (QC): 6 Walk 10ft-Uneven Surface(QC): 6 Walk 50ft with 2 Turns (QC): 6 Walk 150 ft (QC): 6 Does the Pt use WC or Scooter?: No Wheel 50 feet with 2 turns (QC: 9 1 Step (curb) (QC): 6 4 Steps (QC): 6 12 Steps (QC): 5 Picking up an Object (QC): 6 OT Assistant Administrator Goals Assistant Administrator Goals Time Frame: March 05, 2021 Eating (FIM): 6 (met) Eating (QC): 6 (met) Oral Hygiene (QC): 5 (met) Shower/Bathe Self (QC): 4 (not met) Upper Body Dressing (QC): 5 (met) Lower Body Dressing (QC): 4 (not met) On/Off Footwear (QC): 4 (not met) Toileting(FIM): 6 (met) Toileting Hygiene (QC): 5 (met) Toilet/Commode Transfer (QC): 6 (met) Additional Goals: 1-Demonstrate ADL Tasks, 2-Verbalize Understanding, 3- ImproveStrength/Jennifer 1=Demonstrate adherence to instructed precautions during ADL tasks. 2=Patient will verbalize/demonstrate understanding of assistive devices/modifications for ADL. 3=Patient will improve strength/tolerance for activity to enable patient to perform ADL's. CLAUDIA KERNS OT Feb 19, 2021 08:28
--- NOTE | 2021-02-19 08:30 | Physician Query Clarification ---
PQ-Present on Admission Admission/Discharge Admission Date: Feb 10, 2021 at 09:37 Discharge Date: Feb 18, 2021 at 20:10 Dr. Harrison, Question: Acute on chronic respiratory failure was documented in 24 hour post assessment. Can you specify if this condition was present on admission? Please document a response in Progress Note or Discharge Summary. 1. Yes - Condition was present at the time of inpatient IRF admission. 2. No - Condition was not present at the time of inpatient IRF admission and it developed during the inpatient stay. 3. W - Provider is unable to clinically determine whether condition was present on admission or not. 4. Other [please specify] PHYSICIAN RESPONSE Condition was Present on Admit: Other, specify below (2) Please remember a lack of response to the above will prompt a phone page by CDI/Coding staff. In responding to this query, please exercise your independent professional judgment. The purpose of this communication is to more accurately reflect the complexity of your patients condition. The fact that a question is asked does not imply that any particular answer is desired or expected. Thank you for your timely response to this clarification. Requestors name: [email or web address] THIS PHYSICIAN QUERY FORM IS A PERMANENT PART OF THE MEDICAL RECORD CHEMA DAVIS Feb 19, 2021 08:30 MARY HARRISON DO Feb 19, 2021 08:43
--- NOTE | 2021-02-19 08:46 | Therapy Team Discharge Summary ---
Therapy Discharge Summary Discharge Recommendations Date of Discharge Feb 18, 2021 at 20:10 Therapy D/C Recommendations: 24 hr Supervision Physical Therapy Patient came to rehab with COPD exacerbation, myopathy, weakness. Upon evaluation patient performed bed mobility and transfers with setup, car transfer with setup, ambulated 108' with a rolling walker with setup (including 50' with at least 2 turns of 90 degrees and 10' over an uneven surface), and could go up and down 1 step using a rolling walker with setup. Patient has been performing bed mobility and transfers, ambulation, functional strengthening, stair training, gait training, and education. Patient has been discharged from rehab unexpectedly due to medical complications. Based on the PT notes previous to him leaving it seems he is about the same functionally as when he started. 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 Patient will be discharged from PT at this t stephanie. Occupational Therapy Decreased Activ Tolerance, Impaired I ADL's, Impaired Self-Care Skills PT Group Home Goals Group Home Goals PT Diesel Mechanic Construction Goals Time Frame: February 24, 2021 Roll Left to Right (QC): 6 Sit to Lying (QC): 6 Lying-Sitting on Side/Bed(QC): 6 Sit to Stand (QC): 6 Chair/Gbt-ur-Jnnjx Xfer(QC): 6 Car Transfer (QC): 6 Does the Patient Walk: Yes Walk 10 feet (QC): 6 Walk 10ft-Uneven Surface(QC): 6 Walk 50ft with 2 Turns (QC): 6 Walk 150 ft (QC): 6 Does the Pt use WC or Scooter?: No Wheel 50 feet with 2 turns (QC: 9 1 Step (curb) (QC): 6 4 Steps (QC): 6 12 Steps (QC): 5 Picking up an Object (QC): 6 OT Diesel Mechanic Construction Goals Group Home Goals Time Frame: March 05, 2021 Eating (FIM): 6 (met) Eating (QC): 6 (met) Oral Hygiene (QC): 5 (met) Shower/Bathe Self (QC): 4 (not met) Upper Body Dressing (QC): 5 (met) Lower Body Dressing (QC): 4 (not met) On/Off Footwear (QC): 4 (not met) Toileting(FIM): 6 (met) Toileting Hygiene (QC): 5 (met) Toilet/Commode Transfer (QC): 6 (met) Additional Goals: 1-Demonstrate ADL Tasks, 2-Verbalize Understanding, 3-ImproveStrength/Jennifer 1=Demonstrate adherence to instructed precautions during ADL tasks. 2=Patient will verbalize/demonstrate understanding of assistive devices/modifications for ADL. 3=Patient will improve strength/tolerance for activity to enable patient to perform ADL's. ISAAK DE JESUS PT Feb 19, 2021 08:46
[2021-02-19] MEDS ORDERED: ANIDULAFUNGIN INJECTION 100 MG in NS (IVPB) 100 ML IV SCH (09:00)
== END 2021-02-18 20:10 | disposition short-term general hospital (02) | DRG 91 ==
PROVIDERS: ADMIT Internal Medicine; ATTEND Internal Medicine
DX: G72.89 Other specified myopathies (principal); J18.9 Pneumonia, unspecified organism; J96.01 Acute respiratory failure with hypoxia; I38 Endocarditis, valve unspecified; I69.354 Hemiplegia and hemiparesis following cerebral infarction affecting left non-dominant side; J44.9 Chronic obstructive pulmonary disease, unspecified; E11.9 Type 2 diabetes mellitus without complications; I95.1 Orthostatic hypotension; N40.1 Benign prostatic hyperplasia with lower urinary tract symptoms; R35.0 Frequency of micturition; I48.0 Paroxysmal atrial fibrillation; I25.10 Atherosclerotic heart disease of native coronary artery without angina pectoris; E78.00 Pure hypercholesterolemia, unspecified; E78.5 Hyperlipidemia, unspecified; I10 Essential (primary) hypertension; K21.9 Gastro-esophageal reflux disease without esophagitis; K57.90 Diverticulosis of intestine, part unspecified, without perforation or abscess without bleeding; M19.91 Primary osteoarthritis, unspecified site; M54.9 Dorsalgia, unspecified; I65.23 Occlusion and stenosis of bilateral carotid arteries; H91.93 Unspecified hearing loss, bilateral; Z99.81 Dependence on supplemental oxygen; Z97.4 Presence of external hearing-aid; Z87.891 Personal history of nicotine dependence; Z79.01 Long term (current) use of anticoagulants; Z79.84 Long term (current) use of oral hypoglycemic drugs
CPT/HCPCS: 36415; 71045; 80053; 80162; 81000; 82962; 83540; 83605; 84145; 85007; 85025; 85027; 87040; 87088; 94640; 94760

== ENCOUNTER 2021-02-18 20:00 | Inpatient (IN) | payer MEDICARE, OTHER ==
[~2021-02-18] VITALS: Ht 170.1 cm; Wt 62.1 kg
[~2021-02-18 20:00] MED LIST changes: -ACETAMINOPHEN 325 MG TABLET PO PRN; -ALPRAZolam 0.25 MG (XANAX) TAB PO PRN; -BISACODYL 10 MG SUPP (DULCOLAX) PR PRN; -CALCIUM CARBONATE 500 MG (TUMS) TAB.CHEW PO PRN; -DOCUSATE SODIUM 100 MG (COLACE) CAP PO PRN; -FLEET ENEMA ADULT 1 EA BTL PR PRN; -LACTULOSE SYRUP 10GM/15ML (ENULOSE) 30ML UDC PO PRN; -LOPERAMIDE 2 MG (IMODIUM) TABLET PO PRN; -MELATONIN 3 MG TABLET PO PRN; -ONDANSETRON 4 MG (ZOFRAN) ORAL DISSOLVE TAB PO PRN; -diphenhydrAMINE 25 MG TAB (BENADRYL) PO PRN; -guaiFENesin/CODEINE (ROBITUSSIN AC) 10ML UDC PO PRN
[2021-02-18 20:10] VITALS: BP 180/73
[2021-02-18 20:30] VITALS: BP 193/83
[2021-02-18 20:30] LABS: ABG BASE EXCESS 5.6 MMOL/L (-2.5-2.5); ABG OXYGEN SATURATION 97 % (94-100); ABG PCO2 39 MMHG (35-45); ABG PH 7.49 (7.37-7.43); ABG PO2 73 MMHG (79-93); ABG TCO2 30.5 MMOL/L (21.0-31.0)
[2021-02-18 20:37] VITALS: BP 193/83
[2021-02-18 20:38] LABS: ALLENS TEST YES-POS; INSPIRED O2 80% BIPAP; PATIENT TEMP 36.1; VENTILATOR NO
--- NOTE | 2021-02-18 20:43 | Diagnostic Imaging Report ---
INDICATION: Dyspnea. COMPARISON: Exam from earlier the same date. FINDINGS: Extensive bilateral predominantly central airspace infiltrates show no significant interval change. The heart size is stable. No effusion or pneumothorax. IMPRESSION: Unchanged bilateral airspace infiltrates, presumed pneumonia. Dictated by: Dictated on workstation # [id number]
[2021-02-18] MEDS ORDERED: diphenhydrAMINE 25 MG TAB (BENADRYL) PO PRN (20:45)
[2021-02-18] MEDS ORDERED: MELATONIN 3 MG TABLET PO PRN (20:45)
[2021-02-18] MEDS ORDERED: LACTULOSE SYRUP 10GM/15ML (ENULOSE) 30ML UDC PO PRN (20:45)
[2021-02-18] MEDS ORDERED: CALCIUM CARBONATE 500 MG (TUMS) TAB.CHEW PO PRN (20:45)
[2021-02-18] MEDS ORDERED: PATIENT MAY USE OWN MEDS, ALL MC SCH (20:45)
[2021-02-18] MEDS ORDERED: RT-ALBUTEROL/IPRATROPIUM 3 ML (DUONEB) VIAL INH PRN (20:45)
[2021-02-18] MEDS ORDERED: guaiFENesin/CODEINE (ROBITUSSIN AC) 10ML UDC PO PRN (20:45)
[2021-02-18] MEDS ORDERED: FLEET ENEMA ADULT 1 EA BTL PR PRN (20:45)
[2021-02-18] MEDS ORDERED: ONDANSETRON 4 MG (ZOFRAN) ORAL DISSOLVE TAB PO PRN (20:45)
[2021-02-18] MEDS ORDERED: DOCUSATE SODIUM 100 MG (COLACE) CAP PO PRN (20:45)
[2021-02-18] MEDS ORDERED: CATHETER FLUSH 10 ML SYR IV PRN (20:45)
[2021-02-18] MEDS ORDERED: BISACODYL 10 MG SUPP (DULCOLAX) PR PRN (20:45)
[2021-02-18] MEDS ORDERED: LOPERAMIDE 2 MG (IMODIUM) TABLET PO PRN (20:45)
[2021-02-18 20:50] LABS: BASOPHILS % (AUTO) 0 % (0-10); EOSINOPHILS % (AUTO) 0 % (0-10); HEMATOCRIT 32 % (40-54); HEMOGLOBIN 9.9 g/dL (13.3-17.7); LYMPHOCYTES # (AUTO) 1.4 10^3/uL (1.0-4.0); LYMPHOCYTES % (AUTO) 5 % (12-44); MEAN CORPUSCULAR HEMOGLOBIN 27 pg (25-34); MEAN CORPUSCULAR HGB CONC 31 g/dL (32-36); MEAN CORPUSCULAR VOLUME 85 fL (80-99); MEAN PLATELET VOLUME 9.7 fL (9.0-12.2); MONOCYTES # (AUTO) 1.2 10^3/uL (0.0-1.0); MONOCYTES % (AUTO) 4 % (0-12); NEUTROPHILS # (AUTO) 24.3 10^3/uL (1.8-7.8); NEUTROPHILS % (AUTO) 90 % (42-75); PLATELET COUNT 327 10^3/uL (130-400); WHITE BLOOD COUNT 27.1 10^3/uL (4.3-11.0)
[2021-02-18] MEDS: ALPRAZolam 0.25 MG (XANAX) TAB PO PRN (20:59)
[2021-02-18] MEDS ORDERED: RT-ALBUTEROL/IPRATROPIUM 3 ML (DUONEB) VIAL INH SCH ×2 (21:00→22:00)
[2021-02-18] MEDS ORDERED: VANCOMYCIN 500 MG/VIAL IV ONE (21:03)
[2021-02-18] MEDS ORDERED: NS (IVPB) 100 ML ONE (21:03)
[2021-02-18 21:07] LABS: ALANINE AMINOTRANSFERASE 57 U/L (0-55); ALBUMIN 3.2 GM/DL (3.2-4.5); ALKALINE PHOSPHATASE 77 U/L (40-136); BILIRUBIN,TOTAL 0.4 MG/DL (0.1-1.0); BUN/CREATININE RATIO 22; CARBON DIOXIDE 26 MMOL/L (21-32); CHLORIDE 94 MMOL/L (98-107); CREATININE SERUM 0.83 MG/DL (0.60-1.30); GFR ESTIMATED > 60; GLUCOSE 103 MG/DL (70-105); POTASSIUM 4.8 MMOL/L (3.6-5.0); SODIUM 131 MMOL/L (135-145); TOTAL PROTEIN 6.6 GM/DL (6.4-8.2)
[2021-02-18] MEDS: VANCOMYCIN INJECTION 500 MG in NS (IVPB) 100 ML IV SCH (21:17)
[2021-02-18] MEDS: SENNA W/DOCUSATE (SENOKOT S) TABLET PO SCH (21:27)
[2021-02-18] MEDS: polyethylene glycoL POWDER 17 GM (MIRALAX) PACK PO SCH (21:27)
[2021-02-18] MEDS ORDERED: DexMEDEtomidine 250 ML DRIP 250 ML IV SCH (21:30)
[2021-02-18] MEDS ORDERED: morphine PF (DURAMORPH) 10 MG/10 ML AMP IV ONE (21:30)
[2021-02-18] MEDS ORDERED: DexMEDEtomidine 250 ML DRIP 250 ML IV ONE (21:33)
[2021-02-18] MEDS ORDERED: morphine INJ 4 MG/ML 1 ML (VIAL/SYRINGE) ONE (21:37)
[2021-02-18] MEDS ORDERED: morphine INJ 10 MG/ML 1ML (SYR OR VIAL) IVP STA (21:42)
[2021-02-18 21:44] VITALS: BP 191/78
[2021-02-19] MEDS: APIXABAN 2.5 MG (ELIQUIS) TABLET PO SCH ×3 (00:34→20:58)
[2021-02-19] MEDS: methylPREDNISolone 40 MG/ML (Solu-MEDROL) VIAL IV SCH ×5 (00:42→23:48)
[2021-02-19 01:38] VITALS: BP 107/45
[2021-02-19] MEDS: MEROPENEM 1,000 MG in WATER (STERILE) FOR INJECTION 20 ML IV SCH ×3 (02:09→16:45)
[2021-02-19 02:45] LABS: BASOPHILS # (AUTO) 0.1 10^3/uL (0.0-0.1); BASOPHILS % (AUTO) 0 % (0-10); EOSINOPHILS % (AUTO) 0 % (0-10); HEMATOCRIT 25 % (40-54); LYMPHOCYTES # (AUTO) 0.5 10^3/uL (1.0-4.0); LYMPHOCYTES % (AUTO) 2 % (12-44); MEAN CORPUSCULAR HEMOGLOBIN 27 pg (25-34); MEAN CORPUSCULAR HGB CONC 32 g/dL (32-36); MEAN CORPUSCULAR VOLUME 84 fL (80-99); MEAN PLATELET VOLUME 9.9 fL (9.0-12.2); MONOCYTES # (AUTO) 0.7 10^3/uL (0.0-1.0); MONOCYTES % (AUTO) 2 % (0-12); NEUTROPHILS # (AUTO) 27.2 10^3/uL (1.8-7.8); NEUTROPHILS % (AUTO) 95 % (42-75); PLATELET COUNT 275 10^3/uL (130-400); WHITE BLOOD COUNT 28.6 10^3/uL (4.3-11.0)
[2021-02-19 03:03] LABS: ALANINE AMINOTRANSFERASE 45 U/L (0-55); ALBUMIN 2.6 GM/DL (3.2-4.5); ALKALINE PHOSPHATASE 59 U/L (40-136); BILIRUBIN,TOTAL 0.4 MG/DL (0.1-1.0); BUN/CREATININE RATIO 24; CALCIUM 8.2 MG/DL (8.5-10.1); CARBON DIOXIDE 29 MMOL/L (21-32); CHLORIDE 96 MMOL/L (98-107); CREATININE SERUM 0.78 MG/DL (0.60-1.30); GFR ESTIMATED > 60; GLUCOSE 104 MG/DL (70-105); MAGNESIUM 1.5 MG/DL (1.6-2.4); PHOSPHORUS 2.2 MG/DL (2.3-4.7); POTASSIUM 4.3 MMOL/L (3.6-5.0); SODIUM 134 MMOL/L (135-145)
--- NOTE | 2021-02-19 05:22 | Pulmonary Progress Note ---
Subjective Time Seen by a Provider: 05:16 Subjective/Events-last exam Pt transferred to ICU from IRF secondary to respiratory distress. Sepsis Event Evaluation Height, Weight, BMI Height: 5'7.00" Weight: 140lbs. 0.0oz. 63.335467kx; 21.11 BMI Method:Stated Focused Exam Lactate Level 02/18/21 20:35: Lactic Acid Level 2.49*H 02/19/21 02:35: Lactic Acid Level 1.60 Lactic Acid Level Laboratory Tests Test 02/19/21 02:35 Lactic Acid Level 1.60 MMOL/L (0.50-2.00) Exam Exam Vital Signs Date Time Temp Pulse Resp B/P (MAP) Pulse Ox O2 Delivery O2 Flow Rate FiO2 02/19/21 04:00 NIV Bilevel 60 02/19/21 03:49 37.1 02/19/21 02:00 76 22 109/49 (69) 93 NIV Bilevel 65.00 02/19/21 01:38 75 42 92 65.00 02/19/21 01:00 76 21 109/44 (65) 93 NIV Bilevel 65.00 02/19/21 01:00 76 02/19/21 00:40 81 93 NIV Bilevel 65.00 02/19/21 00:00 85 35 116/45 (68) 90 NIV Bilevel 70.00 02/18/21 23:59 NIV Bilevel 70 02/18/21 23:48 37.8 02/18/21 23:46 88 32 89 NIV Bilevel 70.00 02/18/21 23:25 87 37 89 NIV Bilevel 65.00 02/18/21 23:14 55.00 02/18/21 23:07 89 37 90 NIV Bilevel 55.00 02/18/21 23:00 90 36 138/48 (78) 87 NIV Bilevel 50.00 02/18/21 22:00 105 165/82 (109) 94 NIV Bilevel 80.00 02/18/21 21:45 115 191/78 02/18/21 21:44 114 43 93 80.00 02/18/21 21:00 112 162/67 (98) 96 NIV Bilevel 80.00 02/18/21 20:37 35.2 83 02/18/21 20:30 104 35 97 80.00 02/18/21 20:30 104 186/84 (118) 100 NIV Bilevel 80.00 02/18/21 20:15 NIV Bilevel 100 02/18/21 20:13 101 02/18/21 20:10 38.1 101 40 180/73 (108) 100 NIV Bilevel 100.00 I & O 02/19/21 07:00 Intake Total 125 ml Output Total 400 ml Balance -275 ml Height & Weight Height: 5'7.00" Weight: 140lbs. 0.0oz. 63.196207kl; 21.11 BMI Method:Stated General Appearance: Moderate Distress HEENT: PERRL/EOMI, Pharynx Normal Neck: Full Range of Motion, Supple Respiratory: No Accessory Muscle Use, No Respiratory Distress, Crackles, Decreased Breath Sounds Cardiovascular: Regular Rate, Rhythm Capillary Refill: Less Than 3 Seconds Gastrointestinal: normal bowel sounds, non tender, soft Extremity: Normal Capillary Refill Neurologic/Psychiatric: Alert, Oriented x3 Skin: Normal Color, Warm/Dry Results Lab Laboratory Tests 02/18/21 20:35 02/19/21 02:35 Assessment/Plan Assessment/Plan Acute respiratory failure -Transferred to ICU from rehab unit -Currently on BiPAP - 60% -Trial pt to Vapotherm -D/C Precedex - Give 2mg of Bumex x 1 Hypomag, hypophos -Replace COPD with exacerbation -Solumedrol -General weakness -oxygen PNA -Vanco and cefepime currently and Eraxis -Powers cultures pending Pulmonary edema Anemia -Monitor Severe oxygen dependent COPD - He uses 2-3 liters of oxygen at home [facility] -Cardiology following T2DM HTN HLD BRITTANY BARRIOS DO Feb 19, 2021 05:22
[2021-02-19] MEDS ORDERED: BUMETANIDE 1 MG/4 ML (BUMEX) VIAL IV ONE (05:30)
[2021-02-19] MEDS ORDERED: POTASSIUM PHOSPHATE INJ 30 MM in NS (IVPB) 250 ML IV ONE (05:30)
[2021-02-19] MEDS: MAGNESIUM 1 GM/100 ML IVPB 100 ML IV SCH ×3 (06:03→07:54)
[2021-02-19] MEDS: RT-ALBUTEROL/IPRATROPIUM 3 ML (DUONEB) VIAL INH SCH ×5 (06:54→22:18)
[2021-02-19] MEDS: LACTOBACILLUS ACIDOPHILUS (PROBIOTIC) CAPSULE PO SCH ×3 (07:54→16:45)
[2021-02-19] MEDS: AMIODARONE 200 MG (CORDARONE) TAB PO SCH (07:54)
[2021-02-19] MEDS: DIGOXIN 0.125 MG (LANOXIN) TAB PO SCH (07:56)
--- NOTE | 2021-02-19 07:58 | Progress Note - Cardiology ---
Cardiology SOAP Progress Note Objective: I&O/Vital Signs 02/18/21 02/18/21 02/18/21 02/18/21 21:00 21:44 21:45 22:00 Pulse 112 114 115 105 Resp 43 B/P (MAP) 162/67 (98) 191/78 165/82 (109) Pulse Ox 96 93 94 O2 Delivery NIV Bilevel NIV Bilevel O2 Flow Rate 80.00 80.00 80.00 02/18/21 02/18/21 02/18/21 02/18/21 23:00 23:07 23:14 23:25 Pulse 90 89 87 Resp 36 37 37 B/P (MAP) 138/48 (78) Pulse Ox 87 90 89 O2 Delivery NIV Bilevel NIV Bilevel NIV Bilevel O2 Flow Rate 50.00 55.00 55.00 65.00 02/18/21 02/18/21 02/18/21 02/19/21 23:46 23:48 23:59 00:00 Temp 37.8 Pulse 88 85 Resp 32 35 B/P (MAP) 116/45 (68) Pulse Ox 89 90 O2 Delivery NIV Bilevel NIV Bilevel NIV Bilevel O2 Flow Rate 70.00 70.00 FiO2 70 02/19/21 02/19/21 02/19/21 02/19/21 00:40 01:00 01:00 01:38 Pulse 81 76 76 75 Resp 21 42 B/P (MAP) 109/44 (65) Pulse Ox 93 93 92 O2 Delivery NIV Bilevel NIV Bilevel O2 Flow Rate 65.00 65.00 65.00 02/19/21 02/19/21 02/19/21 02/19/21 02:00 03:00 03:49 04:00 Temp 37.1 Pulse 76 72 69 Resp 22 22 21 B/P (MAP) 109/49 (69) 107/48 (67) 107/46 (66) Pulse Ox 93 91 92 O2 Delivery NIV Bilevel NIV Bilevel NIV Bilevel O2 Flow Rate 65.00 65.00 65.00 02/19/21 02/19/21 02/19/21 02/19/21 04:00 05:00 05:33 06:00 Pulse 66 64 Resp 18 20 B/P (MAP) 107/48 (67) 109/48 (68) Pulse Ox 92 89 O2 Delivery NIV Bilevel NIV Bilevel Vapotherm Vapotherm O2 Flow Rate 65.00 30.00 30.00 85.00 FiO2 60 80 02/19/21 02/19/21 06:55 07:32 Temp 36.6 Pulse Ox 91 O2 Delivery Vapotherm O2 Flow Rate 30.00 FiO2 80 02/19/21 00:00 Intake Total 100 ml Output Total 250 ml Balance -150 ml Weight (Pounds): 140 Weight (Ounces): 0.0 Weight (Calculated Kilograms): 63.420092 Results/Procedures: Labs Laboratory Tests 02/18/21 20:23: Blood Gas Puncture Site LT RAD, Blood Gas Patient Temperature 36.1, Arterial Blood pH 7.49H, Arterial Blood Partial Pressure CO2 39, Arterial Blood Partial Pressure O2 73L, Arterial Blood HCO3 29H, Arterial Blood Total CO2 30.5, Arterial Blood Oxygen Saturation 97, Arterial Blood Base Excess 5.6H, Richard Test YES-POS, Blood Gas Ventilator Setting NO, Blood Gas Inspired Oxygen 80% BIPAP 02/18/21 20:35: White Blood Count 27.1H, Red Blood Count 3.70L, Hemoglobin 9.9L, Hematocrit 32L, Mean Corpuscular Volume 85, Mean Corpuscular Hemoglobin 27, Mean Corpuscular Hemoglobin Concent 31L, Red Cell Distribution Width 18.1H, Platelet Count 327, Mean Platelet Volume 9.7, Immature Granulocyte % (Auto) 1, Neutrophils (%) (Auto) 90H, Lymphocytes (%) (Auto) 5L, Monocytes (%) (Auto) 4, Eosinophils (%) (Auto) 0, Basophils (%) (Auto) 0, Neutrophils # (Auto) 24.3H, Lymphocytes # (Auto) 1.4, Monocytes # (Auto) 1.2H, Eosinophils # (Auto) 0.0, Basophils # (Auto) 0.0, Immature Granulocyte # (Auto) 0.2H, Sodium Level 131L, Potassium Level 4.8, Chloride Level 94L, Carbon Dioxide Level 26, Anion Gap 11, Blood Urea Nitrogen 18, Creatinine 0.83, Estimat Glomerular Filtration Rate > 60, BUN/Creatinine Ratio 22, Glucose Level 103, Lactic Acid Level 2.49*H, Calcium Level 9.0, Corrected Calcium 9.6, Total Bilirubin 0.4, Aspartate Amino Transf (AST/SGOT) 34, Alanine Aminotransferase (ALT/SGPT) 57H, Alkaline Phosphatase 77, Troponin I < 0.028, B-Type Natriuretic Peptide 424.9H, Total Protein 6.6, Albumin 3.2, Procalcitonin 0.58H 02/19/21 02:35: White Blood Count 28.6H, Red Blood Count 3.00L, Hemoglobin 8.0L, Hematocrit 25L, Mean Corpuscular Volume 84, Mean Corpuscular Hemoglobin 27, Mean Corpuscular Hemoglobin Concent 32, Red Cell Distribution Width 18.0H, Platelet Count 275, Mean Platelet Volume 9.9, Immature Granulocyte % (Auto) 1, Neutrophils (%) (Auto) 95H, Lymphocytes (%) (Auto) 2L, Monocytes (%) (Auto) 2, Eosinophils (%) (Auto) 0, Basophils (%) (Auto) 0, Neutrophils # (Auto) 27.2H, Lymphocytes # (Auto) 0.5L, Monocytes # (Auto) 0.7, Eosinophils # (Auto) 0.0, Basophils # (Auto) 0.1, Immature Granulocyte # (Auto) 0.3H, Sodium Level 134L, Potassium Level 4.3, Chloride Level 96L, Carbon Dioxide Level 29, Anion Gap 9, Blood Urea Nitrogen 19H, Creatinine 0.78, Estimat Glomerular Filtration Rate > 60, BUN/Creatinine Ratio 24, Glucose Level 104, Lactic Acid Level 1.60, Calcium Level 8.2L, Corrected Calcium 9.3, Total Bilirubin 0.4, Aspartate Amino Transf (AST/SGOT) 41H, Alanine Aminotransferase (ALT/SGPT) 45, Alkaline Phosphatase 59, Total Protein 5.0L, Albumin 2.6L, Phosphorus Level 2.2L, Magnesium Level 1.5L Procedures NAME: HARSHIL RHODES [facility] REC#: [id number] PT STATUS: ADM IN : 1935 PHYSICIAN: MARY LAMBERT DO ADMIT DATE: 02/18/21/ICU Draft Date of Exam:02/19/21 CHEST 1 VIEW, AP/PA ONLY CHEST 1 VIEW, AP/PA ONLY Indication: Respiratory distress Comparison: 02/18/2021 Findings: Confluent consolidations in the bilateral mid and lower lung zones have worsened. No pleural effusion or pneumothorax. Normal cardiomediastinal silhouette. Atherosclerotic aorta. Impression: 1. Worsening of bilateral pulmonary confluent consolidations that have a differential multifocal pneumonia, pulmonary hemorrhage, pulmonary edema and/or ARDS. Dictated on workstation # [id number] Dict: 02/19/21 08 Trans: 02/19/21811 CVB [id number] Interpreted by: ROB RAHMAN MD Electronically signed by: A/P: Assessment: Acute resp distress (multifactorial) overnight prompting transfer from IRU to ICU 6 Acute on chronic exacerbation of COPD - management per pulmonary services Pneumonia - management per pulmonary services Echocardiogram of 01-31-[address] Hobson showed LVEF 55-65%. Mitral valve sclerosis. PASP 25-30 mmHg PAF, maintaining NSR on amiodarone. 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 Anemia, managed by Dr Lambert History of chest pain, last stress test done in November 2017 showing no ischemia or infarction. 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
[2021-02-19] MEDS: polyethylene glycoL POWDER 17 GM (MIRALAX) PACK PO SCH ×2 (08:05→21:20)
[2021-02-19] MEDS: SENNA W/DOCUSATE (SENOKOT S) TABLET PO SCH ×2 (08:06→21:20)
--- NOTE | 2021-02-19 08:12 | Diagnostic Imaging Report ---
CHEST 1 VIEW, AP/PA ONLY Indication: Respiratory distress Comparison: 02/18/2021 Findings: Confluent consolidations in the bilateral mid and lower lung zones have worsened. No pleural effusion or pneumothorax. Normal cardiomediastinal silhouette. Atherosclerotic aorta. Impression: 1. Worsening of bilateral pulmonary confluent consolidations that have a differential multifocal pneumonia, pulmonary hemorrhage, pulmonary edema and/or ARDS. Dictated by: Dictated on workstation # [id number]
[2021-02-19] MEDS: VANCOMYCIN INJECTION 500 MG in NS (IVPB) 100 ML IV SCH ×2 (08:25→20:58)
[2021-02-19] MEDS ORDERED: dilTIAZem120 MG (CARDIZEM CD) CAP PO SCH (09:00)
--- NOTE | 2021-02-19 10:11 | Consultation-Cardiology ---
HPI-Cardiology Cardiology Consultation Date of Consultation 02/19/21 Date of Admission Time Seen by Provider: 10:00 Indication: Respiratory distress HPI Patient is an 85 y/o male with hx of severe oxygen dependent COPD, recent pneumonia, PAF, generalized weakness. Transferred from IRF to ICU for respiratory distress. Denies any chest pain, dizziness or lightheadedness. Home Medications & Allergies Allergies: Coded Allergies: No Known Drug Allergies (Unverified , 06/15/20) Home Medication List Reviewed: Yes GMG-[id number]-Dxreso Hx Patient Social History Marital Status: Employed/Student: retired Smoking Status: Never a Smoker Former smoker/When Quit: May 01, 1984 2nd Hand Smoke Exposure: Yes Recent Hopitalizations: No Alcohol Use?: No Immunizations Up To Date Tetanus Booster (TDap): Unknown Date of Pneumonia Vaccine: Aug 03, 2018 Date of Influenza Vaccine: Jul 27, 2020 Past Medical History PAF, HTN, COPD Family Medical History Significant Family History: Cancer Family History: FH: liver disease 19 MOTHER FH: lung cancer 19 FATHER Review of Systems-General Review of Systems Constitutional: see HPI; No diaphoresis; malaise, weakness EENTM: No blurred vision, No double vision Respiratory: see HPI, cough, dyspnea on exertion, hemoptysis, short of breath Cardiovascular: see HPI; No chest pain; Hx of Intervention; No palpitations, No syncope, No vascular heart diseas Gastrointestinal: see HPI; No abdominal pain, No constipation Genitourinary: see HPI Musculoskeletal: see HPI Reviewed Test Results Reviewed Test Results Lab Laboratory Tests 02/18/21 20:23: Blood Gas Puncture Site LT RAD, Blood Gas Patient Temperature 36.1, Arterial Blood pH 7.49H, Arterial Blood Partial Pressure CO2 39, Arterial Blood Partial Pressure O2 73L, Arterial Blood HCO3 29H, Arterial Blood Total CO2 30.5, Arterial Blood Oxygen Saturation 97, Arterial Blood Base Excess 5.6H, Richard Test YES-POS, Blood Gas Ventilator Setting NO, Blood Gas Inspired Oxygen 80% BIPAP 02/18/21 20:35: White Blood Count 27.1H, Red Blood Count 3.70L, Hemoglobin 9.9L, Hematocrit 32L, Mean Corpuscular Volume 85, Mean Corpuscular Hemoglobin 27, Mean Corpuscular Hemoglobin Concent 31L, Red Cell Distribution Width 18.1H, Platelet Count 327, Mean Platelet Volume 9.7, Immature Granulocyte % (Auto) 1, Neutrophils (%) (Auto) 90H, Lymphocytes (%) (Auto) 5L, Monocytes (%) (Auto) 4, Eosinophils (%) (Auto) 0, Basophils (%) (Auto) 0, Neutrophils # (Auto) 24.3H, Lymphocytes # (Auto) 1.4, Monocytes # (Auto) 1.2H, Eosinophils # (Auto) 0.0, Basophils # (Auto) 0.0, Immature Granulocyte # (Auto) 0.2H, Sodium Level 131L, Potassium Level 4.8, Chloride Level 94L, Carbon Dioxide Level 26, Anion Gap 11, Blood Urea Nitrogen 18, Creatinine 0.83, Estimat Glomerular Filtration Rate > 60, BUN/Creatinine Ratio 22, Glucose Level 103, Lactic Acid Level 2.49*H, Calcium Level 9.0, Corrected Calcium 9.6, Total Bilirubin 0.4, Aspartate Amino Transf (AST/SGOT) 34, Alanine Aminotransferase (ALT/SGPT) 57H, Alkaline Phosphatase 77, Troponin I < 0.028, B-Type Natriuretic Peptide 424.9H, Total Protein 6.6, Albumin 3.2, Procalcitonin 0.58H 02/19/21 02:35: White Blood Count 28.6H, Red Blood Count 3.00L, Hemoglobin 8.0L, Hematocrit 25L, Mean Corpuscular Volume 84, Mean Corpuscular Hemoglobin 27, Mean Corpuscular Hemoglobin Concent 32, Red Cell Distribution Width 18.0H, Platelet Count 275, Mean Platelet Volume 9.9, Immature Granulocyte % (Auto) 1, Neutrophils (%) ( Auto) 95H, Lymphocytes (%) (Auto) 2L, Monocytes (%) (Auto) 2, Eosinophils (%) (Auto) 0, Basophils (%) (Auto) 0, Neutrophils # (Auto) 27.2H, Lymphocytes # (Auto) 0.5L, Monocytes # (Auto) 0.7, Eosinophils # (Auto) 0.0, Basophils # (Auto) 0.1, Immature Granulocyte # (Auto) 0.3H, Sodium Level 134L, Potassium Level 4.3, Chloride Level 96L, Carbon Dioxide Level 29, Anion Gap 9, Blood Urea Nitrogen 19H, Creatinine 0.78, Estimat Glomerular Filtration Rate > 60, BUN/Creatinine Ratio 24, Glucose Level 104, Lactic Acid Level 1.60, Calcium Level 8.2L, Corrected Calcium 9.3, Total Bilirubin 0.4, Aspartate Amino Transf (AST/SGOT) 41H, Alanine Aminotransferase (ALT/SGPT) 45, Alkaline Phosphatase 59, Total Protein 5.0L, Albumin 2.6L, Phosphorus Level 2.2L, Magnesium Level 1.5L Physical Exam Physical Exam Vital Signs Vital Signs - First Documented 02/18/21 02/18/21 20:10 20:15 Temp 38.1 Pulse 101 Resp 40 B/P (MAP) 180/73 (108) Pulse Ox 100 O2 Delivery NIV Bilevel O2 Flow Rate 100.00 FiO2 100 Capillary Refill : Less Than 3 Seconds Height, Weight, BMI Height: 5'7.00" Weight: 140lbs. 0.0oz. 63.020684sc; 21.11 BMI Method:Stated General Appearance: No Apparent Distress, WD/WN Eyes: Bilateral Eye Normal Inspection, Bilateral Eye PERRL, Bilateral Eye EOMI HEENT: PERRL/EOMI, TMs Normal, Normal ENT Inspection, Pharynx Normal, Moist Mucous Membranes Neck: Full Range of Motion, Normal Inspection, Non Tender, Supple, Carotid Bruit Respiratory: Chest Non Tender, Normal Breath Sounds, No Accessory Muscle Use, No Respiratory Distress Cardiovascular: Regular Rate, Rhythm, No Edema, No Gallop, No JVD, No Murmur, Normal Peripheral Pulses Gastrointestinal: Normal Bowel Sounds, No Organomegaly, No Pulsatile Mass, Non Tender, Soft Back: Normal Inspection, No CVA Tenderness, No Vertebral Tenderness Extremity: Normal Capillary Refill, Normal Inspection, Normal Range of Motion, Non Tender, No Calf Tenderness, No Pedal Edema Neurologic/Psychiatric: Alert, Oriented x3, No Motor/Sensory Deficits, 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 Skin: Normal Color, Warm/Dry Lymphatic: No Adenopathy A/P-Cardiology Admission Diagnosis Acute respiratory failure Pneumonia PAF HTN Assessment/Plan Acute respiratory failure, pneumonia, maintained on 02, started on antibiotics. Managed by Dr. Rocha Paroxysmal atrial fibrillation/flutter, s/p cardioversion. Maintained on digoxin, diltiazem, Eliquis. Pneumonia, receiving antibiotics, followed and managed by primary team Paroxysmal atrial fibrillation/flutter, was on diltiazem as an outpatient, currently off diltiazem, maintained on Eliquis Generalized weakness and debility with orthostatic hypotension, Initially he has improved after stopping Toprol and losartan. [id number] score of 6, yearly risk of stroke without oral anticoagulation is 9.8 percent. 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 Anemia, continue to monitor. History of chest pain, last stress test done in November 2017 showing no ischemia or infarction. History of syncope, tilt table test showed severe dizziness and hypotension back in February 2013. Continues to have dizziness, denies any recent syncope. Hypertension, family and patient concerned about orthostatic hypotension, however due to high blood pressure low dose Cardizem was restarted. Continue to monitor blood pressure. Hyperlipidemia, statin held d/t generalized weakness Diabetes mellitus, followed and managed by primary care physician History of moderate bilateral carotid stenosis, last ultrasound done in December 2020. Continue to monitor History of dysphagia with Zenker diverticulum, had Zenker diverticular surgery Patient was seen and evaluated with Camelia, interviewed the patient and performed physical examination Patient is still having bilateral rhonchi and wheezing, currently on Vapotherm Receiving antibiotic and antifungal for pneumonia, managed by Dr. Rocha Has paroxysmal atrial fibrillation with borderline tachycardia Continue to monitor blood pressure and lipids Patient is currently in the ICU. CAMELIA KING Feb 19, 2021 10:11 CRISS FOSTER MD Feb 19, 2021 15:26
[2021-02-19] MEDS: ALPRAZolam 0.25 MG (XANAX) TAB PO PRN (10:19)
[2021-02-19] MEDS: ANIDULAFUNGIN INJECTION 100 MG in NS (IVPB) 100 ML IV SCH (10:23)
--- NOTE | 2021-02-19 10:52 | History & Physical ---
ENDER HENDRICKSON MED STUDENT 02/19/21 1052: History of Present Illness History of Present Illness Reason for visit/HPI Pt is a 85 y/o M PMH O2-dependent COPD, Afib, criticall illness myopathy, and HTN who transfers from [facility] in-patient rehab floor to ICU due to acute respiratory failure. Pt was originally admitted to the hospital on 01/31/2021 for AECOPD from PNA and later transfered to in-pt rehab on 02/10 due to myopathy from stay. Yesterday, (02/18/21) pts respiratory status decompensated and required bipap to get O2 sat into low 80's. Subsequent CXR showed new infiltrate and WBC was 27.1 - pt was thus transfered to ICU for HAP with acute resp insufficency. During visit today pt states his SOB and cough is a little worse than yesterday, pt difficult to communicate with due to hearing loss and his hearing aids being currently out to charge. Pt denies any abd pain, chest pain, or N/Ving currently. Pt switched from bipap to vapotherm this am - pt currently 90%02 sat on 30L/min & 80%FiO2. WBC 28.6 today from 27.1. Repeat CXR today shows worsening infiltrate. Date of Admission Feb 18, 2021 at 20:06 Date Seen by a Provider: Feb 19, 2021 Time Seen by a Provider: 10:00 I consulted on this patient on 02/19/21 10:41 Attending Physician Laura Lambert DO Admitting Physician Tariq Howe DO Consult Allergies and Home Medications Allergies Coded Allergies: No Known Drug Allergies (Unverified , 06/15/20) Home Medications Acetaminophen 500 Mg Tablet, 500-1,000 MG PO Q8H PRN for PAIN-MILD (1-4), (Reported) Last Action: Reviewed Albuterol Sulfate 1 Puff Puff, 2 PUFF INH Q6H PRN for SHORTNESS OF BREATH, (Reported) Last Action: Reviewed Alfuzosin HCl 10 Mg Tab.er.24h, 10 MG PO DAILY, (Reported) Last Action: Reviewed Amiodarone HCl 200 Mg Tablet, 200 MG PO DAILY, (Reported) Last Action: Reviewed Apixaban 2.5 Mg Tablet, 2.5 MG PO BID, (Reported) Last Action: Reviewed Atorvastatin Calcium 40 Mg Tablet, 40 MG PO HS, (Reported) Last Action: Reviewed Cholecalciferol (Vitamin D3) 50 Mcg Capsule, 50 MCG PO DAILY, (Reported) Last Action: Reviewed Diltiazem HCl 180 Mg Capsule.er, 180 MG PO DAILY, (Reported) Last Action: Reviewed Docusate Sodium 100 Mg Capsule, 100 MG PO DAILY PRN for CONSTIPATION-1ST LINE, (Reported) Last Action: Reviewed Metformin HCl 500 Mg Tab.er.24h, 500 MG PO 1800, (Reported) Last Action: Reviewed Polyethylene Glycol 3350 17 Gm Powd.pack, 17 GM PO DAILY PRN for CONSTIPATION- 2ND LINE, (Reported) Last Action: Reviewed [Bethanechol] 25 TAB, 25 MG PO 0700,1200, (Reported) LAST FILLED 02-17-2020 #360/180 DAY SUPPLY Last Action: Reviewed Past Iojnfoj-Hxfimq-Pittbr Hx Patient Social History Marrital Status: Employed/Student: retired Alcohol Beverage of Choice: Beer, Wine Smoking Status: Never a Smoker Former Smoker, Quit: Jul 26, 1984 2nd Hand Smoke Exposure: Yes Recent Hopitalizations: No Alcohol Use?: No Pt feels they are or have been: No Immunizations Up To Date Tetanus Booster (TDap): Unknown Date of Pneumonia Vaccine: Aug 03, 2018 Date of Influenza Vaccine: Jul 27, 2020 Seasonal Allergies Seasonal Allergies: Yes (RUNNY NOSE) Surgeries Yes (ESPHAGAS SURG, HERNIA,R SHOULDER, BACK, CATARACTS, CTR) Orthopedic Respiratory Yes COPD, Pneumonia Currently Using CPAP: No Currently Using BIPAP: No Cardiovascular Yes (PAROXYSMAL A FIB) Atrial Fibrillation, Coronary Artery Disease, High Cholesterol, Hypertension, Valvular Heart Disease Neurological Yes Stroke Reproductive System Hx Reproductive Disorders: No Sexually Transmitted Disease: No HIV/AIDS: No Genitourinary No Benign Prostatic Hyperpl Gastrointestinal Yes (HX BLEEDING ULCER) Gastroesophageal Reflux, Diverticulosis, Polyps Musculoskeletal Yes (ORTHO SURGERY) Arthritis, Chronic Back Pain Endocrine History of Endocrine Disorders: Yes (DM TYPE II) Endocrine Disorders: Diabetes, Non-Insulin dep HEENT History of HEENT Disorders: Yes (GLASSES, DENTURES) HEENT Disorders: Cataract Loss of Vision: Denies Hearing Impairment: Hard of Hearing, Bilateral Hearing Aide Cancer No Psychosocial History of Psychiatric Problem: No Integumentary History of Skin or Integumenta: Yes (MILD) Skin/Integumentary Disorders: Eczema, Psoriasis Blood Transfusions History of Blood Disorders: Yes (HX ANEMIA -BLEEDING ULCER) Adverse Reaction to a Blood Tr: No (HAS HAD BLOOD WITH NO REACTION) Family Medical History Significant Family History: Cancer Family Hx: FH: liver disease 19 MOTHER FH: lung cancer 19 FATHER Review of Systems Constitutional: No chills, No diaphoresis EENTM: hearing loss; No hoarseness Respiratory: cough, dyspnea on exertion, short of breath Cardiovascular: No chest pain, No palpitations Gastrointestinal: No abdominal pain, No nausea, No vomiting Genitourinary: frequency (hx of this with bph ), hesitancy (hx of this with bph ), other (thomas cath ) Skin: No change in color, No change in hair/nails Physical Exam Vital Signs Vital Signs - First Documented 02/18/21 02/18/21 20:10 20:15 Temp 38.1 Pulse 101 Resp 40 B/P (MAP) 180/73 (108) Pulse Ox 100 O2 Delivery NIV Bilevel O2 Flow Rate 100.00 FiO2 100 Capillary Refill : Less Than 3 Seconds Height, Weight, BMI Height: 5'7.00" Weight: 140lbs. 0.0oz. 63.596011ex; 21.11 BMI Method:Stated General Appearance: No Apparent Distress, Chronically ill HEENT: PERRL/EOMI, Moist Mucous Membranes Neck: Full Range of Motion, Normal Inspection Respiratory: No Accessory Muscle Use, No Respiratory Distress, Crackles, Decreased Breath Sounds Cardiovascular: Regular Rate, Rhythm, No Murmur, Normal Peripheral Pulses Gastrointestinal: Non Tender, Soft Rectal: Deferred Extremity: Non Tender, No Calf Tenderness Neurologic/Psychiatric: Alert, 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 Skin: Normal Color, Warm/Dry Assessment/Plan Assessment and Plan Acute Respiratory failure AECOPD HAP Cause of pts ARF is a AECOPD from a HAP. pt has known hx of AECOPD from PNA (hospitalized in 01/31/21). hx of chronic severe O2 dependent COPD. 02/19 CXR shows worsening b/l infiltrates. lactic acidosis yesterday (2.49) resolved on repeat this morning (1.60) Pt on vapotherm - 30L/min, 80% FiO2. O2 sat 90% in room this morning. IV meropenam, vanc, anidulafungin, and solu-medrol. Powers cultures pending Place central line Palliative care consulted Pulmonary edema Likely superimposed onto PNA, possibly contributing to ARF. BNP 424 yesterday 1x 2mg IV bumex this am. Afib Hx of subacute CVA hx of RVR with subsequent cardioversion early . [id number] score 6. Cardiology following pt. Currently sinus rhythme on amiodarone. Eliquis for embolism prophylaxis. Pulmonary HTN 01/31/21 echocardiogram showed systolic pulm BP of 30-35. Likely 2/2 chronic hypoxia from COPD. Critical illness myopathy patient transfered to ICU from in-patient rehab. Pt originally hospitalized on January 31, 2021 for AECOPD from PNA. Leukocytosis WBC 28.6 from 27.1 yesterday. 2/2 HAP. normocytic anemia Chronic hx. Pt within baseline (8-10). multifactorial etiology - 2/2 hx of GI bleeds and anemia of chronic disease. hyponatremia hypochloremia hypomagnesia hypophophatemia Mild electrolytes deficiencies. Follow serially. IV electrolytes as needed. NIDDM HTN HLD moderate-mild b/l ICA stenosis SSI PO Home meds. Hx of GI bleed Gastritis Stress ulcer prophylaxis Hx of multiple hospitalizations for GI blood loss. Last time was - EGD showed gastritis as possible cause. Given GI bleeding within past year, sepsis, and corticosteriod use, pt high risk for stress ulcer. consider starting PO PPI as prophylaxis. hx of AUR BPH AUR in in-patient rehab last week. Dr. Simmons following. Started on flomax with resolution of sxs. Thomas cath currently. DVT prophylaxis Pt of therapeutic prophylaxis for afib. Admission Diagnosis Acute Respiratory Failure, HAP, AECOPD Admission Status: Inpatient Order (span 2 midnights) Reason for Inpatient Admission: Acute Respiratory Failure, HAP, AECOPD LAURA LAMBERT DO 02/20/21 0529: History of Present Illness History of Present Illness Reason for visit/HPI CC: Acute on chronic respiratory failure HPI: This is an 85yoWM who was in rehab, I had to transfer up to ICU due to respiratory distress and worsened pneumonia with sepsis. He had been found to have worsening pneumonia so I had placed him on Meropenem and Vancomycin empirically along with Eraxis and BiPAP was tolerated pretty well in transition to Vapotherm today. WC remains elevated at 28, CMP is within normal limits but lactic acid went from 2.5 to 1.6 today after fluid. He remains tachypneic. CXR appears to be consistent either worsened pneumonia. Vital signs remain stable. Procalcitonin was 0.58. Pt was given Bumex today. Date of Admission 02/18/21 Allergies and Home Medications Allergies Coded Allergies: No Known Drug Allergies (Unverified , 06/15/20) Home Medications Acetaminophen 500 Mg Tablet, 500-1,000 MG PO Q8H PRN for PAIN-MILD (1-4), (Reported) Last Action: Reviewed Albuterol Sulfate 1 Puff Puff, 2 PUFF INH Q6H PRN for SHORTNESS OF BREATH, (Reported) Last Action: Reviewed Alfuzosin HCl 10 Mg Tab.er.24h, 10 MG PO DAILY, (Reported) Last Action: Reviewed Amiodarone HCl 200 Mg Tablet, 200 MG PO DAILY, (Reported) Last Action: Reviewed Apixaban 2.5 Mg Tablet, 2.5 MG PO BID, (Reported) Last Action: Reviewed Atorvastatin Calcium 40 Mg Tablet, 40 MG PO HS, (Reported) Last Action: Reviewed Cholecalciferol (Vitamin D3) 50 Mcg Capsule, 50 MCG PO DAILY, (Reported) Last Action: Reviewed Diltiazem HCl 180 Mg Capsule.er, 180 MG PO DAILY, (Reported) Last Action: Reviewed Docusate Sodium 100 Mg Capsule, 100 MG PO DAILY PRN for CONSTIPATION-1ST LINE, (Reported) Last Action: Reviewed Metformin HCl 500 Mg Tab.er.24h, 500 MG PO 1800, (Reported) Last Action: Reviewed Polyethylene Glycol 3350 17 Gm Powd.pack, 17 GM PO DAILY PRN for CONSTIPATION- 2ND LINE, (Reported) Last Action: Reviewed [Bethanechol] 25 TAB, 25 MG PO 0700,1200, (Reported) LAST FILLED 02-17-2020 #360/180 DAY SUPPLY Last Action: Reviewed Patient Home Medication List Home Medication List Reviewed: Yes Past Msnvjff-Ayequb-Bqgedf Hx Patient Social History Marrital Status: Employed/Student: retired Smoking Status: Former Smoker Respiratory COPD, Pneumonia Cardiovascular Atrial Fibrillation, Chronic Edema/Swelling, Coronary Artery Disease, High Cholesterol, Hypertension Genitourinary Benign Prostatic Hyperpl, Bladder Infection Gastrointestinal Gastroesophageal Reflux Musculoskeletal Arthritis, Chronic Back Pain Family Medical History Family Hx: FH: liver disease 19 MOTHER FH: lung cancer 19 FATHER Review of Systems Constitutional: see HPI, dizziness, fever, malaise, weakness Respiratory: cough, dyspnea on exertion, short of breath Physical Exam General Appearance: No Apparent Distress, WD/WN, Anxious, Chronically ill, Thin Respiratory: Crackles, Decreased Breath Sounds, Wheezing Cardiovascular: Regular Rate, Rhythm Neurologic/Psychiatric: Alert, Oriented x3 Assessment/Plan Assessment and Plan Assessment: Acute on chronic respiratory failure PNA bilateral AF Debility Plan: Vapotherm biPAP [place]? Admission Diagnosis Admission Status: Inpatient Order (span 2 midnights) Reason for Inpatient Admission: resp failure Supervisory-Addendum Brief Verification & Attestation Participated in pt care: history, MDM, physical Personally performed: exam, history, MDM, supervision of care Care discussed with: Medical Student Procedures: n/a Results interpretation: Verified all documentation Verification and Attestation of Medical Student E/M Service A medical student performed and documented this service in my presence. I r eviewed and verified all information documented by the medical student and made modifications to such information, when appropriate. I personally performed the physical exam and medical decision making. Laura Lambert, Feb 20, 2021,05:29 ENDER HENDRICKSON MED STUDENT Feb 19, 2021 10:52 LAURA LAMBERT DO Feb 20, 2021 05:29
[2021-02-19] MEDS: TAMSULOSIN 0.4 MG (FLOMAX) CAP PO SCH (16:45)
[2021-02-19 18:27] VITALS: BP 134/55
[2021-02-19 22:19] VITALS: BP 146/53
[2021-02-20] MEDS: RT-ALBUTEROL/IPRATROPIUM 3 ML (DUONEB) VIAL INH SCH ×6 (02:16→21:40)
[2021-02-20 02:17] VITALS: BP 147/68
[2021-02-20] MEDS: MEROPENEM 1,000 MG in WATER (STERILE) FOR INJECTION 20 ML IV SCH ×3 (02:40→17:52)
[2021-02-20 02:51] LABS: BASOPHILS % (AUTO) 0 % (0-10); EOSINOPHILS % (AUTO) 0 % (0-10); HEMATOCRIT 26 % (40-54); HEMOGLOBIN 8.3 g/dL (13.3-17.7); LYMPHOCYTES # (AUTO) 0.3 10^3/uL (1.0-4.0); LYMPHOCYTES % (AUTO) 2 % (12-44); MEAN CORPUSCULAR HEMOGLOBIN 27 pg (25-34); MEAN CORPUSCULAR HGB CONC 33 g/dL (32-36); MEAN CORPUSCULAR VOLUME 83 fL (80-99); MEAN PLATELET VOLUME 9.8 fL (9.0-12.2); MONOCYTES # (AUTO) 0.6 10^3/uL (0.0-1.0); MONOCYTES % (AUTO) 3 % (0-12); NEUTROPHILS # (AUTO) 19.8 10^3/uL (1.8-7.8); NEUTROPHILS % (AUTO) 95 % (42-75); PLATELET COUNT 306 10^3/uL (130-400); WHITE BLOOD COUNT 20.9 10^3/uL (4.3-11.0)
[2021-02-20 03:13] LABS: BUN/CREATININE RATIO 34; CARBON DIOXIDE 29 MMOL/L (21-32); CHLORIDE 94 MMOL/L (98-107); GFR ESTIMATED > 60; GLUCOSE 138 MG/DL (70-105); MAGNESIUM 2.1 MG/DL (1.6-2.4); PHOSPHORUS 3.5 MG/DL (2.3-4.7); POTASSIUM 4.5 MMOL/L (3.6-5.0); SODIUM 133 MMOL/L (135-145)
[2021-02-20] MEDS: MAGNESIUM 1 GM/100 ML IVPB 100 ML IV SCH (03:17)
[2021-02-20] MEDS: POTASSIUM CL 10MEQ/50ML IVPB 50 ML IV SCH (03:17)
[2021-02-20] MEDS: KCL 20 MEQ TAB (K-DUR) PO SCH (03:17)
[2021-02-20] MEDS ORDERED: FUROSEMIDE 40 MG/4 ML INJ (LASIX) IVP ONE (03:45)
[2021-02-20] MEDS ORDERED: FUROSEMIDE 40 MG/4 ML INJ (LASIX) ONE (03:45)
--- NOTE | 2021-02-20 03:46 | Pulmonary Progress Note ---
Subjective Time Seen by a Provider: 03:43 Subjective/Events-last exam Pt is on BiPAP at 60% currently Sepsis Event Evaluation Height, Weight, BMI Height: 5'7.00" Weight: 140lbs. 0.0oz. 63.522088vq; 21.11 BMI Method:Stated Focused Exam Lactate Level 02/18/21 20:35: Lactic Acid Level 2.49*H 02/19/21 02:35: Lactic Acid Level 1.60 Exam Exam Vital Signs Date Time Temp Pulse Resp B/P (MAP) Pulse Ox O2 Delivery O2 Flow Rate FiO2 02/20/21 02:17 79 38 94 65.00 02/20/21 02:00 79 147/68 (94) 94 NIV Bilevel 65.00 02/20/21 01:00 80 02/20/21 01:00 80 39 152/63 (92) 94 NIV Bilevel 65.00 02/20/21 00:00 81 38 143/60 (87) 93 NIV Bilevel 65.00 02/19/21 23:59 93 NIV Bilevel 60 02/19/21 23:50 36.4 02/19/21 23:00 82 145/61 (89) 95 NIV Bilevel 65.00 02/19/21 22:41 NIV Bilevel 65.00 02/19/21 22:19 76 37 94 70.00 02/19/21 22:00 76 35 146/63 (90) 97 NIV Bilevel 80.00 02/19/21 21:00 77 36 146/60 (88) 95 NIV Bilevel 80.00 02/19/21 20:00 93 NIV Bilevel 60 02/19/21 20:00 75 35 134/96 (109) 97 NIV Bilevel 80.00 02/19/21 19:00 74 02/19/21 19:00 74 35 138/56 (83) 95 NIV Bilevel 80.00 02/19/21 18:40 NIV Bilevel 80.00 02/19/21 18:27 76 38 94 80.00 02/19/21 18:00 75 16 128/58 (81) 92 Vapotherm 30.00 85.00 02/19/21 17:00 70 34 133/53 (79) 92 Vapotherm 30.00 85.00 02/19/21 16:33 36.1 4/26/21 16:00 66 16 122/50 (74) 95 Vapotherm 30.00 85.00 02/19/21 16:00 92 Vapotherm 30.00 75 02/19/21 15:00 71 27 121/52 (75) 95 Vapotherm 30.00 85.00 02/19/21 14:22 90 Vapotherm 30.00 70 02/19/21 14:00 68 28 126/55 (78) 88 Vapotherm 30.00 85.00 02/19/21 13:00 71 17 133/53 (79) 89 Vapotherm 30.00 85.00 02/19/21 12:48 64 02/19/21 12:00 92 Vapotherm 30.00 75 02/19/21 12:00 69 26 115/54 (74) 88 Vapotherm 30.00 85.00 02/19/21 12:00 36.8 02/19/21 11:00 73 25 117/47 (70) 90 Vapotherm 30.00 85.00 02/19/21 10:00 76 31 118/48 (71) 87 Vapotherm 30.00 85.00 02/19/21 09:40 91 Vapotherm 30.00 75 02/19/21 09:00 70 24 113/50 (71) 91 Vapotherm 30.00 85.00 02/19/21 08:00 90 Vapotherm 30.00 80 02/19/21 08:00 68 23 121/54 (76) 94 Vapotherm 30.00 85.00 02/19/21 07:32 36.6 02/19/21 07:00 63 15 106/53 (70) 92 Vapotherm 30.00 85.00 02/19/21 06:55 91 Vapotherm 30.00 80 02/19/21 06:52 70 02/19/21 06:00 64 20 109/48 (68) 89 Vapotherm 30.00 85.00 02/19/21 05:33 Vapotherm 30.00 80 02/19/21 05:00 66 18 107/48 (67) 92 NIV Bilevel 65.00 02/19/21 04:00 NIV Bilevel 60 02/19/21 04:00 69 21 107/46 (66) 92 NIV Bilevel 65.00 02/19/21 03:49 37.1 I & O 02/20/21 07:00 Intake Total 1550 ml Output Total 1635 ml Balance -85 ml Height & Weight Height: 5'7.00" Weight: 140lbs. 0.0oz. 63.928131vb; 21.11 BMI Method:Stated General Appearance: WD/WN, Mild Distress HEENT: PERRL/EOMI, TMs Normal, Normal ENT Inspection, Pharynx Normal, Moist Mucous Membranes Neck: Full Range of Motion, Normal Inspection, Non Tender, Supple, Carotid Bruit Respiratory: Chest Non Tender, Normal Breath Sounds, No Accessory Muscle Use, No Respiratory Distress Cardiovascular: Regular Rate, Rhythm, No Edema, No Gallop, No JVD, No Murmur, Normal Peripheral Pulses Capillary Refill: Less Than 3 Seconds Extremity: Normal Capillary Refill, Normal Inspection, Normal Range of Motion, Non Tender, No Calf Tenderness, No Pedal Edema Neurologic/Psychiatric: Alert, Oriented x3, No Motor/Sensory Deficits, 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 Skin: Normal Color, Warm/Dry Lymphatic: No Adenopathy Results Lab Laboratory Tests 02/18/21 20:35 02/19/21 02:35 02/20/21 02:45 Assessment/Plan Assessment/Plan Acute respiratory failure -Transferred to ICU from rehab unit -Currently on BiPAP - 60% -Trial pt to Vapotherm -D/C Precedex - Give 40mg of Lasix x 1 Hypomag, hypophos -Replace COPD with exacerbation -Solumedrol -General weakness -oxygen PNA -Vanco and cefepime currently and Eraxis -MRSA is negative D/C Vanco -Powers cultures pending Pulmonary edema Anemia -Monitor Severe oxygen dependent COPD - He uses 2-3 liters of oxygen at home Joshua Afib -Cardiology following T2DM HTN HLD BRITTANY BARRIOS DO Feb 20, 2021 03:46
[2021-02-20] MEDS: methylPREDNISolone 40 MG/ML (Solu-MEDROL) VIAL IV SCH ×4 (05:44→23:32)
[2021-02-20 07:34] VITALS: BP 136/80
--- NOTE | 2021-02-20 07:51 | Diagnostic Imaging Report ---
INDICATION: Respiratory distress, ICU management. TECHNIQUE: Single view chest 2:26 AM. CORRELATION STUDY: 02/19/2021 FINDINGS: Extensive bilateral pulmonary opacities particularly in the mid and lower lung jesus persisting. Overall stable to perhaps very minimally improved. Heart size stable. Right-sided central line tip over the SVC. IMPRESSION: 1. Extensive, dense consolidation of the mid and lower lung jesus overall stable to perhaps very minimally improved. May reflect rather dense consolidated pneumonia, hemorrhage, edema and/or potential ARDS. Dictated by: Dictated on workstation # [id number]
[2021-02-20] MEDS: APIXABAN 2.5 MG (ELIQUIS) TABLET PO SCH ×2 (07:55→19:51)
[2021-02-20] MEDS: ALPRAZolam 0.25 MG (XANAX) TAB PO PRN ×2 (07:56→19:51)
[2021-02-20] MEDS: DIGOXIN 0.125 MG (LANOXIN) TAB PO SCH (07:56)
[2021-02-20] MEDS: AMIODARONE 200 MG (CORDARONE) TAB PO SCH (07:56)
[2021-02-20] MEDS ORDERED: TROUGH ORDER-PHARMACY XX ONE (08:00)
[2021-02-20] MEDS: LACTOBACILLUS ACIDOPHILUS (PROBIOTIC) CAPSULE PO SCH ×3 (08:00→17:52)
[2021-02-20] MEDS: SENNA W/DOCUSATE (SENOKOT S) TABLET PO SCH ×2 (08:06→21:04)
[2021-02-20] MEDS: polyethylene glycoL POWDER 17 GM (MIRALAX) PACK PO SCH ×2 (08:06→21:04)
--- NOTE | 2021-02-20 08:13 | Cardiology Progress Note ---
Subjective Date Seen by Provider: Feb 20, 2021 Time Seen by Provider: 08:10 Subjective/Events-last exam Patient is laying down in bed, on BiPAP, worsening dyspnea, failed Vapotherm today Review of Systems General: No Chills, No Night Sweats; Fatigue, Malaise; No Appetite, No Other HEENT: No Head Aches, No Visual Changes, No Eye Pain, No Ear Pain, No Dysphasia, No Sinus Congestion, No Post Nasal Drip, No Sore Throat, No Other Pulmonary: Dyspnea; No Cough, No Pleuritic Chest Pain, No Other Cardiovascular: No: Chest Pain, Palpitations, Orthopnea, Paroxysmal Noc. Dyspnea, Edema, Lt Headedness, Other Focused Exam Lactate Level 02/18/21 20:35: Lactic Acid Level 2.49*H 02/19/21 02:35: Lactic Acid Level 1.60 Objective-Cardiology Exam Last Set of Vital Signs Vital Signs 02/20/21 02/20/21 02/20/21 02/20/21 06:00 07:03 07:34 07:59 Temp 36.7 Pulse 115 Resp 29 B/P (MAP) 139/74 (95) Pulse Ox 94 O2 Delivery Vapotherm O2 Flow Rate 100.00 FiO2 85 Capillary Refill : Less Than 3 Seconds I&O Intake and Output 02/20/21 00:00 Intake Total 1575 ml Output Total 1800 ml Balance -225 ml Intake Oral 1575 ml Output Urine Total 1800 ml General: Alert, Oriented X3, Cooperative HEENT: Atraumatic, PERRLA Neck: Supple, No JVD, No Thyromegaly Lungs: Normal Air Movement, Other (Bilateral rales) Heart: Normal S1, Normal S2, No Murmurs, Other (Tachycardia) Abdomen: Normal Bowel Sounds, Soft, No Tenderness, No Hepatosplenomegaly, No Masses Extremities: No Clubbing, No Cyanosis, No Edema, Normal Pulses, No Tenderness/Swelling Skin: No Rashes, No Breakdown, No Significant Lesion Neuro: Normal Speech, Normal Tone, Sensation Intact Psych/Mental Status: Mental Status NL, Mood NL Results Lab Laboratory Tests 02/20/21 02:45 A/P-Cardiology Admission Diagnosis Acute respiratory failure Pneumonia PAF HTN Assessment/Plan Acute respiratory failure, pneumonia, back on BiPAP today, failed Vapotherm, chest x-ray showed worsening bilateral infiltrate, managed by Dr. Rocha Paroxysmal atrial fibrillation/flutter, s/p cardioversion. Maintained on digoxin, diltiazem, Eliquis. Pneumonia, receiving antibiotics, antifungal, managed by Dr. Rocha Generalized weakness and debility with orthostatic hypotension, Initially he has improved after stopping Toprol and losartan. [id number] score of 6, yearly risk of stroke without oral anticoagulation is 9.8 percent. 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 History of chest pain, last stress test done in November 2017 showing no ischemia or infarction. History of syncope, tilt table test showed severe dizziness and hypotension back in February 2013. Continues to have dizziness, denies any recent syncope. Hypertension, family and patient concerned about orthostatic hypotension, however due to high blood pressure low dose Cardizem was restarted. Continue to monitor blood pressure. Hyperlipidemia, statin held d/t generalized weakness Diabetes mellitus, followed and managed by primary care physician History of moderate bilateral carotid stenosis, last ultrasound done in December 2020. Continue to monitor History of dysphagia with Zenker diverticulum, had Zenker diverticular surgery CRISS FOSTER MD Feb 20, 2021 08:13
[2021-02-20] MEDS: ANIDULAFUNGIN INJECTION 100 MG in NS (IVPB) 100 ML IV SCH (09:15)
--- NOTE | 2021-02-20 09:23 | Progress Note ---
ENDER HENDRICKSON MED STUDENT 02/20/21 0923: Subjective Date Seen by a Provider: Feb 20, 2021 Time Seen by a Provider: 08:00 Subjective/Events-last exam 08:00 per nurse - pt maxed out on vapotherm this morning - couldn't get O2 sat into the 80's. Was switched over to Bipap one hour ago. Pt currently on 100%FiO2 Bipap while I was in the room, pt denies chest pain, abd pain or N/Ving. 08:40 - pt visited with Dr. Lambert, pt justed switched back over to Vapotherm several minutes ago. Repeat CXR today minimally better compared to yesterday. WBC down to 20.9 from 28.6. vanc d/c'd due to neg MRSA screen results. Review of Systems General: No Chills, No Night Sweats Pulmonary: Dyspnea, Cough Cardiovascular: No: Chest Pain, Palpitations Gastrointestinal: No: Nausea, Vomiting, Abdominal Pain Genitourinary: Other (thomas cath ) Musculoskeletal: back pain Focused Exam Lactate Level 02/18/21 20:35: Lactic Acid Level 2.49*H 02/19/21 02:35: Lactic Acid Level 1.60 Objective Exam Last Set of Vital Signs Vital Signs Date Time Temp Pulse Resp B/P (MAP) Pulse Ox O2 Delivery O2 Flow Rate FiO2 02/20/21 09:00 112 23 136/74 (94) 96 NIV Bilevel 100.00 02/20/21 07:59 36.7 02/20/21 07:03 85 Capillary Refill : Less Than 3 Seconds I&O Intake and Output 02/20/21 00:00 Intake Total 1575 ml Output Total 1800 ml Balance -225 ml Intake Oral 1575 ml Output Urine Total 1800 ml General: Alert, No Acute Distress Lungs: Other (crackles in b/l lung jesus. ) Heart: Other (irregular rhytheme, no murmur, tachycardia. ) Abdomen: Soft, No Tenderness Results Lab Laboratory Tests 02/20/21 02:45: White Blood Count 20.9H, Red Blood Count 3.08L, Hemoglobin 8.3L, Hematocrit 26L, Mean Corpuscular Volume 83, Mean Corpuscular Hemoglobin 27, Mean Corpuscular Hemoglobin Concent 33, Red Cell Distribution Width 17.9H, Platelet Count 306, Mean Platelet Volume 9.8, Immature Granulocyte % (Auto) 1, Neutrophils (%) (Auto) 95H, Lymphocytes (%) (Auto) 2L, Monocytes (%) (Auto) 3, Eosinophils (%) (Auto) 0, Basophils (%) (Auto) 0, Neutrophils # (Auto) 19.8H, Lymphocytes # (Auto) 0.3L, Monocytes # (Auto) 0.6, Eosinophils # (Auto) 0.0, Basophils # (Auto) 0.0, Immature Granulocyte # (Auto) 0.1, Sodium Level 133L, Potassium Level 4.5, Chloride Level 94L, Carbon Dioxide Level 29, Anion Gap 10, Blood Urea Nitrogen 27H, Creatinine 0.80, Estimat Glomerular Filtration Rate > 60, BUN/Creatinine Ratio 34, Glucose Level 138H, Calcium Level 9.0, Phosphorus Level 3.5, Magnesium Level 2.1 Microbiology 02/18/21 MRSA Screen - Final, Complete MRSA not isolated Assessment/Plan Assessment/Plan Assess & Plan/Chief Complaint Acute Respiratory failure AECOPD HAP Critical illness myopathy Cause of pts ARF is a AECOPD from a HAP. pt has known hx of AECOPD from PNA (hospitalized in 01/31/21). hx of chronic severe O2 dependent COPD. 02/20 CXR shows minimal improvement from yesterday. Pt required Bipap this morning, back on vapotherm for now. preliminary blood cultures neg. Vanc d/c due to neg MRSA screen. IV meropenam, anidulafungin, and solu-medrol. Palliative care consulted. referral to [facility]. Pulmonary edema/congestion Likely superimposed onto PNA, possibly contributing to ARF. Lasix given this am. Afib Hx of subacute CVA hx of RVR with subsequent cardioversion early . [id number] score 6. Cardiology following pt. Pt irregular rhythem with RVR during visit this am. Eliquis for embolism prophylaxis. Leukocytosis WBC 20.9 from 28.6 yesterday. 2/2 HAP. normocytic anemia Chronic hx. Pt within baseline (8-10). multifactorial etiology - 2/2 hx of GI bleeds and anemia of chronic disease. hyponatremia hypochloremia CMP stable from yesterday. Follow serially. IV electrolytes as needed. Hx of GI bleed Gastritis Stress ulcer prophylaxis Hx of multiple hospitalizations for GI blood loss. Last time was - EGD showed gastritis as possible cause. Given GI bleeding within past year, sepsis, and corticosteriod use, pt high risk for stress ulcer. consider starting PO PPI as prophylaxis. hx of AUR BPH Flomax Thomas cath currently. NIDDM HTN HLD moderate-mild b/l ICA stenosis SSI DVT prophylaxis Pt of therapeutic prophylaxis for afib. Clinical Quality Measures Admission Status Admission Dx Acute Respiratory Failure, HAP, AECOPD LAURA LAMBERT DO 02/21/21 0552: Subjective Subjective/Events-last exam Pt had a worsening respiratory status earlier today and family had been interested in going to [place] and that process is being started CXR was negative Went into AFIB and is currently having rapid ventricular rate at 110 WBC is down to 20.9 Maintain on Vancomycin, Meropenem and Eraxis BiPAP and Vapotherm alternating Review of Systems General: Fatigue, Malaise Pulmonary: Dyspnea Objective Exam General: Alert, Mild Distress Lungs: Other (crackles in b/l lung jesus. ) Heart: Other (irregular rhytheme, no murmur, tachycardia. ) Assessment/Plan Assessment/Plan Assess & Plan/Chief Complaint [place] eval Vapotherm BiPAP IV abx Supervisory-Addendum Brief Verification & Attestation Participated in pt care: history, MDM, physical Personally performed: exam, history, MDM, supervision of care Care discussed with: Medical Student Procedures: n/a Results interpretation: Verified all documentation Verification and Attestation of Medical Student E/M Service A medical student performed and documented this service in my presence. I reviewed and verified all information documented by the medical student and made modifications to such information, when appropriate. I personally performed the physical exam and medical decision making. Laura Lambert, Feb 21, 2021,05:51 ENDER HENDRICKSON MED STUDENT Feb 20, 2021 09:23 LAURA LAMBERT DO Feb 21, 2021 05:52
[2021-02-20] MEDS: TAMSULOSIN 0.4 MG (FLOMAX) CAP PO SCH (17:52)
[2021-02-20 21:40] VITALS: BP 134/74
[2021-02-21] MEDS: MEROPENEM 1,000 MG in WATER (STERILE) FOR INJECTION 20 ML IV SCH ×3 (02:18→18:25)
[2021-02-21 02:34] LABS: BASOPHILS % (AUTO) 0 % (0-10); EOSINOPHILS % (AUTO) 0 % (0-10); HEMATOCRIT 24 % (40-54); HEMOGLOBIN 7.8 g/dL (13.3-17.7); LYMPHOCYTES # (AUTO) 0.2 10^3/uL (1.0-4.0); LYMPHOCYTES % (AUTO) 1 % (12-44); MEAN CORPUSCULAR HEMOGLOBIN 26 pg (25-34); MEAN CORPUSCULAR HGB CONC 32 g/dL (32-36); MEAN CORPUSCULAR VOLUME 82 fL (80-99); MEAN PLATELET VOLUME 9.9 fL (9.0-12.2); MONOCYTES # (AUTO) 0.6 10^3/uL (0.0-1.0); MONOCYTES % (AUTO) 3 % (0-12); NEUTROPHILS # (AUTO) 16.6 10^3/uL (1.8-7.8); NEUTROPHILS % (AUTO) 95 % (42-75); PLATELET COUNT 287 10^3/uL (130-400); WHITE BLOOD COUNT 17.5 10^3/uL (4.3-11.0)
[2021-02-21 02:54] LABS: BUN/CREATININE RATIO 41; CALCIUM 8.4 MG/DL (8.5-10.1); CARBON DIOXIDE 31 MMOL/L (21-32); CHLORIDE 94 MMOL/L (98-107); GFR ESTIMATED > 60; GLUCOSE 155 MG/DL (70-105); PHOSPHORUS 3.2 MG/DL (2.3-4.7); POTASSIUM 4.4 MMOL/L (3.6-5.0); SODIUM 135 MMOL/L (135-145)
[2021-02-21] MEDS: MAGNESIUM 1 GM/100 ML IVPB 100 ML IV SCH (03:49)
[2021-02-21] MEDS: POTASSIUM CL 10MEQ/50ML IVPB 50 ML IV SCH (03:49)
[2021-02-21] MEDS: KCL 20 MEQ TAB (K-DUR) PO SCH (03:50)
[2021-02-21] MEDS: methylPREDNISolone 40 MG/ML (Solu-MEDROL) VIAL IV SCH ×3 (05:11→18:24)
[2021-02-21] MEDS: RT-ALBUTEROL/IPRATROPIUM 3 ML (DUONEB) VIAL INH SCH ×5 (06:58→21:32)
--- NOTE | 2021-02-21 07:23 | Diagnostic Imaging Report ---
INDICATION: Respiratory distress Portable chest shows normal heart size and vascularity. There are bilateral consolidated infiltrates in a pattern similar to the 02/20/2021 study. There is no effusion or pneumothorax. PICC line tip is in the SVC. IMPRESSION: Stable chest with persistent bilateral consolidated infiltrates most pronounced in the perihilar regions. This may be secondary to pulmonary edema. Dictated by: Dictated on workstation # [id number]
[2021-02-21] MEDS: polyethylene glycoL POWDER 17 GM (MIRALAX) PACK PO SCH ×2 (09:00→19:40)
--- NOTE | 2021-02-21 09:31 | Cardiology Progress Note ---
Subjective Date Seen by Provider: Feb 21, 2021 Time Seen by Provider: 09:30 Subjective/Events-last exam Continues to have dyspnea, denies any chest pain. Focused Exam Lactate Level 02/18/21 20:35: Lactic Acid Level 2.49*H 02/19/21 02:35: Lactic Acid Level 1.60 Objective-Cardiology Exam Last Set of Vital Signs Vital Signs 02/21/21 02/21/21 02/21/21 14:17 15:00 15:51 Temp 36.9 Pulse 93 Resp 23 B/P (MAP) 135/54 (81) Pulse Ox 91 O2 Delivery Vapotherm O2 Flow Rate 40.00 100.00 FiO2 100 Capillary Refill : Less Than 3 Seconds I&O Intake and Output 02/21/21 00:00 Intake Total 1660 ml Output Total 2085 ml Balance -425 ml Intake Oral 1660 ml Output Urine Total 2085 ml General: Alert, Mild Distress HEENT: Atraumatic, PERRLA Neck: Supple, No JVD, No Thyromegaly Lungs: Other (crackles in b/l lung jesus. ) Heart: Other (irregular rhytheme, no murmur, tachycardia. ) Abdomen: Soft, No Tenderness Extremities: No Clubbing, No Cyanosis, No Edema, Normal Pulses, No Tenderness/Swelling Skin: No Rashes, No Breakdown, No Significant Lesion Neuro: Normal Speech, Normal Tone, Sensation Intact Psych/Mental Status: Mental Status NL, Mood NL Results Lab Laboratory Tests 02/21/21 02:25 A/P-Cardiology Admission Diagnosis Acute respiratory failure Pneumonia PAF HTN Assessment/Plan Acute respiratory failure, pneumonia, back on on Vapotherm, chest x-ray showed worsening bilateral infiltrate, managed by Dr. Rocha Paroxysmal atrial fibrillation/flutter, s/p cardioversion. Maintained on digoxin, diltiazem, Eliquis. Pneumonia, receiving antibiotics, antifungal, managed by Dr. Rocha Generalized weakness and debility with orthostatic hypotension, Initially he has improved after stopping Toprol and losartan. [id number] score of 6, yearly risk of stroke without oral anticoagulation is 9.8 percent. Maintained on Eliquis, continue to monitor History of subacute CVA with left facial drooping and left arm weakness occurred in June 2016 had initial workup in the hospital in [place], MRI of the head showed subacute infarct, patient was started on Eliquis History of GI bleed was hospitalized in October 2017, had blood transfusion and had EGD. History of chest pain, last stress test done in November 2017 showing no ischemia or infarction. History of syncope, tilt table test showed severe dizziness and hypotension back in February 2013. Continues to have dizziness, denies any recent syncope. Hypertension, family and patient concerned about orthostatic hypotension, h owever due to high blood pressure low dose Cardizem was restarted. Continue to monitor blood pressure. Hyperlipidemia, statin held d/t generalized weakness Diabetes mellitus, followed and managed by primary care physician History of moderate bilateral carotid stenosis, last ultrasound done in December 2020. Continue to monitor History of dysphagia with Zenker diverticulum, had Zenker diverticular surgery Patient was seen at bedside, laying down comfortably, inquiring about comfort care He is still having significant dyspnea, on Vapotherm today 100% with oxygen saturations around 87 percent Still receiving antibiotic, overall guarded prognosis Continue to monitor heart rate and blood pressure CAMELIA KING Feb 21, 2021 9:31 am CRISS FOSTER MD Feb 21, 2021 4:03 pm
[2021-02-21] MEDS: FLUCONAZOLE 100 MG/50 ML IVPB IV SCH (09:37)
[2021-02-21] MEDS: SUCRALFATE 1 GM (CARAFATE) TAB PO SCH ×4 (09:38→20:12)
[2021-02-21] MEDS: PANTOPRAZOLE 40 MG (PROTONIX) TAB PO SCH (09:38)
[2021-02-21] MEDS: AMIODARONE 200 MG (CORDARONE) TAB PO SCH (09:38)
[2021-02-21] MEDS: LACTOBACILLUS ACIDOPHILUS (PROBIOTIC) CAPSULE PO SCH ×3 (09:38→18:25)
[2021-02-21] MEDS: ACETAMINOPHEN 500 MG TAB (TYLENOL) PO PRN ×2 (09:38→23:44)
[2021-02-21] MEDS: DIGOXIN 0.125 MG (LANOXIN) TAB PO SCH (09:39)
[2021-02-21] MEDS: SENNA W/DOCUSATE (SENOKOT S) TABLET PO SCH ×2 (09:39→19:40)
[2021-02-21] MEDS: APIXABAN 2.5 MG (ELIQUIS) TABLET PO SCH ×2 (09:39→20:12)
--- NOTE | 2021-02-21 09:50 | Progress Note ---
ENDER HENDRICKSON MED STUDENT 02/21/21 0950: Subjective Date Seen by a Provider: Feb 21, 2021 Time Seen by a Provider: 08:30 Subjective/Events-last exam Pt states his coughing and SOB feels improved this morning compare to last. Pt currently on max vapotherm - 40L/min, 100%Fi02 at 91% O2 sat. CXR shows stable infiltrate. WBC count down to 17.5 from 20.9. Hgb at 7.8 today from 8.3 - in addition BUN rising from 19 at admission to ICU to 33 today - concern for occult upper GI bleed given labs and personal hx. Discussed pts case with family in ICU - family informed pt is very unlikely to make a recovery and his two options going forward are [facility] or [facility] transfer. Family to talk with pt to discuss their decision moving forward. Hospital Course: Pt is a 85 y/o M [facility] O2-dependent COPD, Afib, criticall illness myopathy, and HTN who transfered from [facility] in-patient rehab floor to ICU due to acute respiratory failure on 02/18/2021. Pt was originally admitted to the hospital on 01/31/2021 for AECOPD from PNA and later transfered to in-pt rehab on 02/10 due to myopathy from stay. On 02/18/21, pt became SOB and tachypnic with marked coughing. His respiratory status decompensated and he required bipap to get O2 sat into low 80's, given his respiratory symptoms and severe chronic COPD, a subsequent CXR was ordered which showed new infiltrate. Additionally, on CMP his WBC was 27.1. This workup confirmed a AECOPD due to HAP, and pt was transfered to ICU for intensive care. Pts status is DNI. For AECOPD treatment, flores cultures were collected, injections of solu-medrol, duodeneb nebulizer, and IV anidulafungin, meropenam and vanc were started on 02/18/21. Cardiology was consulted to managed pts Afib, pt treated with amiodarone. Lactic acid was 2.49 on 02/18/21, confirming severe sepsis 2/2 the HAP. On 02/19/21, lactic acid fell to 1.60, but pt failed vapoterm trial. Given pt failed in-pt rehab, and current poor medical status - palliative care was consulted. After discussion with family and pt, pt was willing to consider LTAC for aggressive care and family required request for transfer to [facility]. On 02/20/21, MRSA screen resulted neg and vanc was d/c, pt continued to require maximum vapotherm on trial. On 02/21/21, Repeat labs showed an elevated BUN and fall in Hgb. Pt had known hx of occult GI blood loss. Given this, FOBT and iron levels were ordered and pt was placed on PPI and sucralfate. The same day, physician (Dr. Lambert) discussed pts care with family, pts poor prognosis was made clear to family. Two options were presented; [facility] or [facility]. Pts Daughter is highly supportive of transfer to [facility], they are to discuss care moving forward with pt later today. [facility] transfer to [facility] appears [facility]. The following information is only a summary of the pts admission while at [facility] and is not all inclusive. Please review entire chart for more information. Review of Systems General: No Chills, No Night Sweats Pulmonary: Dyspnea, Cough Cardiovascular: No: Chest Pain, Palpitations Gastrointestinal: No: Nausea, Vomiting, Abdominal Pain, Diarrhea, Constipation Genitourinary: Other (thomas cath) Focused Exam Lactate Level 02/18/21 20:35: Lactic Acid Level 2.49*H 02/19/21 02:35: Lactic Acid Level 1.60 Objective Exam Last Set of Vital Signs Vital Signs Date Time Temp Pulse Resp B/P (MAP) Pulse Ox O2 Delivery O2 Flow Rate FiO2 02/21/21 08:00 97 21 147/60 (89) 84 Vapotherm 40.00 100.00 02/21/21 07:40 36.7 02/21/21 06:59 100 Capillary Refill : Less Than 3 Seconds I&O Intake and Output 02/21/21 00:00 Intake Total 1660 ml Output Total 2085 ml Balance -425 ml Intake Oral 1660 ml Output Urine Total 2085 ml General: Alert, No Acute Distress Lungs: Other (crackles and wheezing in b/l lung jesus.) Heart: Regular Rate, No Murmurs Abdomen: Soft, No Tenderness Results Lab Laboratory Tests 02/21/21 02:25: White Blood Count 17.5H, Red Blood Count 2.95L, Hemoglobin 7.8L, Hematocrit 24L, Mean Corpuscular Volume 82, Mean Corpuscular Hemoglobin 26, Mean Corpuscular Hemoglobin Concent 32, Red Cell Distribution Width 17.8H, Platelet Count 287, Mean Platelet Volume 9.9, Immature Granulocyte % (Auto) 1, Neutrophils (%) (Auto) 95H, Lymphocytes (%) (Auto) 1L, Monocytes (%) (Auto) 3, Eosinophils (%) (Auto) 0, Basophils (%) (Auto) 0, Neutrophils # (Auto) 16.6H, Lymphocytes # (Auto) 0.2L, Monocytes # (Auto) 0.6, Eosinophils # (Auto) 0.0, Basophils # (Auto) 0.0, Immature Granulocyte # (Auto) 0.1, Sodium Level 135, Potassium Level 4.4, Chloride Level 94L, Carbon Dioxide Level 31, Anion Gap 10, Blood Urea Nitrogen 33H, Creatinine 0.80, Estimat Glomerular Filtration Rate > 60, BU N/Creatinine Ratio 41, Glucose Level 155H, Calcium Level 8.4L, Phosphorus Level 3.2, Magnesium Level 2.0 Microbiology 02/18/21 MRSA Screen - Final, Complete MRSA not isolated Assessment/Plan Assessment/Plan Assess & Plan/Chief Complaint Acute Respiratory failure AECOPD HAP Critical illness myopathy Cause of pts ARF is a AECOPD from a HAP. pt has known hx of AECOPD from PNA (hospitalized in 01/31/21). hx of chronic severe O2 dependent COPD. 02/21 CXR shows stable infiltrate. pt on max vapotherm at visit this am. IV meropenam, fluconazole, and solu-medrol. Discussed care moving forward with family - two options presented - [facility] or [facility] care. Family plans to discuss further with pt today. Normocytic anemia Hx of multiple hospitalizations for GI blood loss. Last time was - EGD showed gastritis as possible cause. Given hx of occult GI bleeding, recent sepsis, and corticosteriod use, pt high risk for ulcer development. Hgb 7.8 today from 8.3 yesterday. BUN rising from 19 at admission to 33 today. Given RFs and labs, pt has probable UGIB Vs LGIB. Pt started on PPI and sucralfate. FOBT and Iron levels ordered. Pulmonary edema/congestion Likely superimposed onto PNA, possibly contributing to ARF. Afib Hx of subacute CVA hx of RVR with subsequent cardioversion early . [id number] score 6. Cardiology following pt. Pt regular rhythem and rate this am. Eliquis for embolism prophylaxis. Leukocytosis WBC 17.5 from 20.9 today. 2/2 HAP. hypochloremia electrolytes stable from yesterday. Follow serially. IV electrolytes as needed. hx of AUR BPH Flomax Thomas cath currently. NIDDM HTN HLD moderate-mild b/l ICA stenosis SSI DVT prophylaxis Pt of therapeutic prophylaxis for afib. Clinical Quality Measures Admission Status Admission Dx Acute Respiratory Failure, HAP, AECOPD MARY LAMBERT DO 02/22/21 0524: Subjective Subjective/Events-last exam Had a conversation with [facility] and patient and he does not wish to go that direction Met family on way out of ICU and had a kayla discussion about the need to move to another location of care if remains ICU but if does not wish to move to [place] he will need to initiate comfort care management. Review of Systems General: Fatigue Pulmonary: Dyspnea Objective Exam General: Alert, Mild Distress Lungs: Other (crackles and wheezing in b/l lung jesus.) Heart: Other (Irr Irr) Assessment/Plan Assessment/Plan Assess & Plan/Chief Complaint Monitor closely Needs [facility] or comfort care Supervisory-Addendum Brief Verification & Attestation Participated in pt care: history, MDM, physical Personally performed: exam, history, MDM, supervision of care Care discussed with: Medical Student Procedures: n/a Results interpretation: Verified all documentation Verification and Attestation of Medical Student E/M Service A medical student performed and documented this service in my presence. I reviewed and verified all information documented by the medical student and made modifications to such information, when appropriate. I personally performed the physical exam and medical decision making. Mary Lambert, Feb 22, 2021,05:22 ENDER HENDRICKSON MED STUDENT Feb 21, 2021 09:50 MARY LAMBERT DO Feb 22, 2021 05:24
--- NOTE | 2021-02-21 15:03 | Consultation - Surgery ---
History of Present Illness History of Present Illness Patient Consulted On(ray/time) 02/21/21 14:56 Time Seen by Provider: 13:15 Reason for Visit: Respiratory distress History of Present Illness Surgery is asked to consult regarding Anemia and GI bleed. HPI per IM: Pt is a 85 y/o M PMH O2-dependent COPD, Afib, criticall illness myopathy, and HTN who transfers from [facility] in-patient rehab floor to ICU due to acute respiratory failure. Pt was originally admitted to the hospital on 01/31/2021 for AECOPD from PNA and later transfered to in-pt rehab on 02/10 due to myopathy from stay. Yesterday, (02/18/21) pts respiratory status decompensated and required bipap to get O2 sat into low 80's. Subsequent CXR showed new infiltrate and WBC was 27.1 - pt was thus transfered to ICU for HAP with acute resp insufficency. During visit today pt states his SOB and cough is a little worse than yesterday, pt difficult to communicate with due to hearing loss and his hearing aids being currently out to charge. Pt denies any abd pain, chest pain, or N/Ving currently. Pt switched from bipap to vapotherm this am - pt currently 90%02 sat on 30L/min & 80%FiO2. WBC 28.6 today from 27.1. Repeat CXR today shows worsening infiltrate. When I spoke to pt, he was sitting comfortably in his be and denied abdominal pain. He had a colonoscopy in 2019 that did not show anything and a recent EGD performed by myself; that showed duodenal stricture and Gastritis, no ulcers or active bleeding. Pt is with his and they have decided to go comfort care and stop all aggressive treatment. Allergies and Home Medications Allergies Coded Allergies: No Known Drug Allergies (Unverified , 06/15/20) Home Medications Acetaminophen 500 Mg Tablet, 500-1,000 MG PO Q8H PRN for PAIN-MILD (1-4), (Reported) Last Action: Reviewed Albuterol Sulfate 1 Puff Puff, 2 PUFF INH Q6H PRN for SHORTNESS OF BREATH, (Reported) Last Action: Reviewed Alfuzosin HCl 10 Mg Tab.er.24h, 10 MG PO DAILY, (Reported) Last Action: Reviewed Amiodarone HCl 200 Mg Tablet, 200 MG PO DAILY, (Reported) Last Action: Reviewed Apixaban 2.5 Mg Tablet, 2.5 MG PO BID, (Reported) Last Action: Reviewed Atorvastatin Calcium 40 Mg Tablet, 40 MG PO HS, (Reported) Last Action: Reviewed Cholecalciferol (Vitamin D3) 50 Mcg Capsule, 50 MCG PO DAILY, (Reported) Last Action: Reviewed Diltiazem HCl 180 Mg Capsule.er, 180 MG PO DAILY, (Reported) Last Action: Reviewed Docusate Sodium 100 Mg Capsule, 100 MG PO DAILY PRN for CONSTIPATION-1ST LINE, (Reported) Last Action: Reviewed Metformin HCl 500 Mg Tab.er.24h, 500 MG PO 1800, (Reported) Last Action: Reviewed Polyethylene Glycol 3350 17 Gm Powd.pack, 17 GM PO DAILY PRN for CONSTIPATION- 2ND LINE, (Reported) Last Action: Reviewed [Bethanechol] 25 TAB, 25 MG PO 0700,1200, (Reported) LAST FILLED 02-17-2020 #360/180 DAY SUPPLY Last Action: Reviewed Patient Home Medication List Home Medication List Reviewed: Yes Past Ppezshp-[id number] Hx Patient Social History Smoking Status: Former Smoker Former Smoker, Quit: Jul 26, 1984 2nd Hand Smoke Exposure: Yes Recent Hopitalizations: No Alcohol Use?: No Immunizations Up To Date Tetanus Booster (TDap): Unknown Date of Pneumonia Vaccine: Aug 03, 2018 Date of Influenza Vaccine: Jul 27, 2020 Seasonal Allergies Seasonal Allergies: Yes (RUNNY NOSE) Surgeries History of Surgeries: Yes (ESPHAGAS SURG, HERNIA,R SHOULDER, BACK, CATARACTS, CTR) Surgeries: Orthopedic Respiratory History of Respiratory Disorde: Yes Respiratory Disorders: Pneumonia Cardiovascular History of Cardiac Disorders: Yes (PAROXYSMAL A FIB) Cardiac Disorders: Atrial Fibrillation, Chronic Edema/Swelling, Coronary Artery Disease, High Cholesterol, Hypertension Neurological History of Neurological Disord: Yes Neurological Disorders: Stroke Reproductive System Hx Reproductive Disorders: No Sexually Transmitted Disease: No HIV/AIDS: No Genitourinary History of Genitourinary Disor: No Genitourinary Disorders: Benign Prostatic Hyperpl, Bladder Infection Gastrointestinal History of Gastrointestinal Di: Yes (HX BLEEDING ULCER) Gastrointestinal Disorders: Gastroesophageal Reflux Musculoskeletal History of Musculoskeletal Dis: Yes (ORTHO SURGERY) Musculoskeletal Disorders: Arthritis, Chronic Back Pain Endocrine History of Endocrine Disorders: Yes (DM TYPE II) Endocrine Disorders: Diabetes, Non-Insulin dep HEENT History of HEENT Disorders: Yes (GLASSES, DENTURES) HEENT Disorders: Cataract Loss of Vision: Denies Hearing Impairment: Hard of Hearing, Bilateral Hearing Aide Cancer History of Cancer: No Psychosocial History of Psychiatric Problem: No Integumentary History of Skin or Integumenta: Yes (MILD) Skin/Integumentary Disorders: Eczema, Psoriasis Blood Transfusions History of Blood Disorders: Yes (HX ANEMIA -BLEEDING ULCER) Adverse Reaction to a Blood Tr: No (HAS HAD BLOOD WITH NO REACTION) Family Medical History Significant Family History: Cancer Family Medial History: FH: liver disease 19 MOTHER FH: lung cancer 19 FATHER Review of Systems-General Constitutional: malaise, weakness EENTM: No mouth pain, No mouth swelling, No epistaxis Respiratory: cough, dyspnea on exertion Cardiovascular: No chest pain; edema, palpitations, vascular heart diseas Gastrointestinal: No abdominal pain, No dysphagia, No nausea, No vomiting Genitourinary: No dysuria, No frequency, No hematuria Musculoskeletal: joint pain, joint swelling, muscle pain, muscle stiffness, muscle weakness Skin: No change in color, No change in hair/nails Psychiatric/Neurological: Denies Anxiety, Denies Depressed Physical Exam-General Problems Physical Exam Vital Signs Vital Signs - First Documented 02/18/21 02/18/21 20:10 20:15 Temp 38.1 Pulse 101 Resp 40 B/P (MAP) 180/73 (108) Pulse Ox 100 O2 Delivery NIV Bilevel O2 Flow Rate 100.00 FiO2 100 Capillary Refill : Less Than 3 Seconds General Appearance: no apparent distress, cachetic Eyes: Bilateral Eye PERRL, Bilateral Eye EOMI HEENT: pharynx normal; No scleral icterus (R), No scleral icterus (L) Neck: supple Respiratory: no respiratory distress, no accessory muscle use, decreased breath sounds Cardiovascular: No gallop/S3; irregularly irregular Gastrointestinal: non tender, soft, no organomegaly, no pulsatile mass Back: no CVA tenderness, no vertebral tenderness Extremities: no calf tenderness, normal capillary refill Neurologic/Psychiatric: manager field services II-XII nml as tested, alert Skin: normal color, warm/dry Lymphatic: no adenopathy (neck, axilla or groin) Data Review Labs Laboratory Tests 02/21/21 02:25: White Blood Count 17.5H, Red Blood Count 2.95L, Hemoglobin 7.8L, Hematocrit 24L, Mean Corpuscular Volume 82, Mean Corpuscular Hemoglobin 26, Mean Corpuscular Hemoglobin Concent 32, Red Cell Distribution Width 17.8H, Platelet Count 287, Mean Platelet Volume 9.9, Immature Granulocyte % (Auto) 1, Neutrophils (%) (Auto) 95H, Lymphocytes (%) (Auto) 1L, Monocytes (%) (Auto) 3, Eosinophils (%) (Auto) 0, Basophils (%) (Auto) 0, Neutrophils # (Auto) 16.6H, Lymphocytes # (Auto) 0.2L, Monocytes # (Auto) 0.6, Eosinophils # (Auto) 0.0, Basophils # (Auto) 0.0, Immature Granulocyte # (Auto) 0.1, Sodium Level 135, Potassium Level 4.4, Chloride Level 94L, Carbon Dioxide Level 31, Anion Gap 10, Blood Urea Nitrogen 33H, Creatinine 0.80, Estimat Glomerular Filtration Rate > 60, BUN/Creatinine Ratio 41, Glucose Level 155H, Calcium Level 8.4L, Phosphorus Level 3.2, Magnesium Level 2.0 Microbiology 02/18/21 MRSA Screen - Final, Complete MRSA not isolated Assessment/Plan Assessment/Plan Assessment/Plan Anemia GI bleed -pt has decided he no longer wants aggressive treatment and therefore I will hold off on doing an EGD. If he changes his mind I'd be happy to see him again. Acute Respiratory failure Hosp acquired Pneumonia Critical illness myopathy Normocytic anemia Pulmonary edema/congestion Afib Hx of subacute CVA Leukocytosis hypochloremia BPH NIDDM HTN HLD EVENS CARRERO DO Feb 21, 2021 15:03
[2021-02-21] MEDS: TAMSULOSIN 0.4 MG (FLOMAX) CAP PO SCH (18:25)
[2021-02-21] MEDS: ALPRAZolam 0.25 MG (XANAX) TAB PO PRN (23:44)
[2021-02-22] MEDS: MEROPENEM 1,000 MG in WATER (STERILE) FOR INJECTION 20 ML IV SCH (01:05)
[2021-02-22] MEDS: methylPREDNISolone 40 MG/ML (Solu-MEDROL) VIAL IV SCH ×2 (01:05→06:55)
[2021-02-22] MEDS: RT-ALBUTEROL/IPRATROPIUM 3 ML (DUONEB) VIAL INH SCH ×6 (02:01→22:12)
[2021-02-22] MEDS: SUCRALFATE 1 GM (CARAFATE) TAB PO SCH (05:27)
[2021-02-22] MEDS: MAGNESIUM 1 GM/100 ML IVPB 100 ML IV SCH (05:38)
[2021-02-22] MEDS: POTASSIUM CL 10MEQ/50ML IVPB 50 ML IV SCH (05:38)
[2021-02-22] MEDS: KCL 20 MEQ TAB (K-DUR) PO SCH (05:38)
[2021-02-22 05:39] LABS: BASOPHILS % (AUTO) 0 % (0-10); EOSINOPHILS % (AUTO) 0 % (0-10); HEMATOCRIT 24 % (40-54); HEMOGLOBIN 7.7 g/dL (13.3-17.7); LYMPHOCYTES # (AUTO) 0.2 10^3/uL (1.0-4.0); LYMPHOCYTES % (AUTO) 1 % (12-44); MEAN CORPUSCULAR HEMOGLOBIN 27 pg (25-34); MEAN CORPUSCULAR HGB CONC 32 g/dL (32-36); MEAN CORPUSCULAR VOLUME 83 fL (80-99); MEAN PLATELET VOLUME 9.9 fL (9.0-12.2); MONOCYTES # (AUTO) 0.6 10^3/uL (0.0-1.0); MONOCYTES % (AUTO) 4 % (0-12); NEUTROPHILS # (AUTO) 15.7 10^3/uL (1.8-7.8); NEUTROPHILS % (AUTO) 95 % (42-75); PLATELET COUNT 256 10^3/uL (130-400); WHITE BLOOD COUNT 16.5 10^3/uL (4.3-11.0)
[2021-02-22 06:00] LABS: BUN/CREATININE RATIO 42; CALCIUM 8.5 MG/DL (8.5-10.1); CARBON DIOXIDE 33 MMOL/L (21-32); CHLORIDE 95 MMOL/L (98-107); CREATININE SERUM 0.74 MG/DL (0.60-1.30); GFR ESTIMATED > 60; GLUCOSE 145 MG/DL (70-105); MAGNESIUM 1.9 MG/DL (1.6-2.4); PHOSPHORUS 2.5 MG/DL (2.3-4.7); POTASSIUM 4.6 MMOL/L (3.6-5.0); SODIUM 135 MMOL/L (135-145)
[2021-02-22] MEDS: LACTOBACILLUS ACIDOPHILUS (PROBIOTIC) CAPSULE PO SCH ×2 (08:43→09:00)
[2021-02-22] MEDS: polyethylene glycoL POWDER 17 GM (MIRALAX) PACK PO SCH ×2 (08:43→09:00)
[2021-02-22] MEDS: SENNA W/DOCUSATE (SENOKOT S) TABLET PO SCH ×3 (08:43→20:00)
[2021-02-22] MEDS: AMIODARONE 200 MG (CORDARONE) TAB PO SCH ×2 (08:43→09:00)
[2021-02-22] MEDS: APIXABAN 2.5 MG (ELIQUIS) TABLET PO SCH ×2 (08:43→09:00)
[2021-02-22] MEDS: DIGOXIN 0.125 MG (LANOXIN) TAB PO SCH ×2 (08:43→09:00)
[2021-02-22] MEDS: ALPRAZolam 0.25 MG (XANAX) TAB PO PRN (08:43)
[2021-02-22] MEDS: PANTOPRAZOLE 40 MG (PROTONIX) TAB PO SCH ×2 (08:43→09:00)
--- NOTE | 2021-02-22 08:47 | Cardiology Progress Note ---
Subjective Date Seen by Provider: Feb 22, 2021 Time Seen by Provider: 08:46 Subjective/Events-last exam Patient was seen at bedside, still having shortness of breath. No new complaint Review of Systems General: No Chills, No Night Sweats; Fatigue; No Malaise, No Appetite, No Other HEENT: No Head Aches, No Visual Changes, No Eye Pain, No Ear Pain, No Dysphasia, No Sinus Congestion, No Post Nasal Drip, No Sore Throat, No Other Pulmonary: Dyspnea; No Cough, No Pleuritic Chest Pain, No Other Cardiovascular: No: Chest Pain, Palpitations, Orthopnea, Paroxysmal Noc. Dyspnea, Edema, Lt Headedness, Other Objective-Cardiology Exam Last Set of Vital Signs Vital Signs 02/22/21 02/22/21 02/22/21 06:00 07:07 07:43 Temp 36.3 Pulse 79 Resp 27 B/P (MAP) 152/61 (91) Pulse Ox 90 O2 Delivery Vapotherm O2 Flow Rate 40.00 100.00 FiO2 100 Capillary Refill : Less Than 3 Seconds I&O Intake and Output 02/22/21 00:00 Intake Total 2000 ml Output Total 1375 ml Balance 625 ml Intake Oral 2000 ml Output Urine Total 1375 ml General: Alert, Oriented X3, Cooperative, Mild Distress HEENT: Atraumatic, PERRLA Neck: Supple, No JVD, No Thyromegaly Lungs: Other (crackles and wheezing in b/l lung jesus.) Heart: Normal S1, Normal S2, Other (Atrial fibrillation) Abdomen: Soft, No Tenderness Extremities: No Clubbing, No Cyanosis, No Edema, Normal Pulses, No Tenderness/Swelling Skin: No Rashes, No Breakdown, No Significant Lesion Neuro: Normal Speech, Normal Tone, Sensation Intact Psych/Mental Status: Mental Status NL, Mood NL Results Lab Laboratory Tests 02/22/21 05:30 A/P-Cardiology Admission Diagnosis Acute respiratory failure Pneumonia PAF HTN Assessment/Plan Acute respiratory failure, pneumonia, back on on Vapotherm, no significant i mprovement, still short of breath on Vapotherm 100%. Managed by Dr. Rocha Paroxysmal atrial fibrillation/flutter, s/p cardioversion. Maintained on digoxin, diltiazem, Eliquis. Pneumonia, receiving antibiotics, antifungal, managed by Dr. Rocha Generalized weakness and debility with orthostatic hypotension, Initially he has improved after stopping Toprol and losartan. [id number] score of 6, yearly risk of stroke without oral anticoagulation is 9.8 percent. 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 History of chest pain, last stress test done in November 2017 showing no isc hemia or infarction. History of syncope, tilt table test showed severe dizziness and hypotension back in February 2013. Continues to have dizziness, denies any recent syncope. Hypertension, family and patient concerned about orthostatic hypotension, however due to high blood pressure low dose Cardizem was restarted. Continue to monitor blood pressure. Hyperlipidemia, statin held d/t generalized weakness Diabetes mellitus, followed and managed by primary care physician History of moderate bilateral carotid stenosis, last ultrasound done in December 2020. Continue to monitor History of dysphagia with Zenker diverticulum, had Zenker diverticular surgery CRISS FOSTER MD Feb 22, 2021 08:47
[2021-02-22] MEDS: ACETAMINOPHEN 500 MG TAB (TYLENOL) PO PRN ×2 (08:49→13:44)
[2021-02-22] MEDS: FLUCONAZOLE 100 MG/50 ML IVPB IV SCH (09:00)
[2021-02-22] MEDS ORDERED: RT-ALBUTEROL/IPRATROPIUM 3 ML (DUONEB) VIAL INH PRN (09:15)
[2021-02-22] MEDS ORDERED: BISACODYL 10 MG SUPP (DULCOLAX) PR PRN (09:15)
[2021-02-22] MEDS ORDERED: ACETAMINOPHEN 650 MG SUPP (TYLENOL) PR PRN (09:15)
[2021-02-22] MEDS ORDERED: PROMETHAZINE INJ 25 MG/ML (PHENERGAN) AMP IVP PRN (09:15)
[2021-02-22] MEDS ORDERED: SALIVA STIMULANT MOUTH SPRAY (BIOTENE) 1.5 OZ MM PRN (09:15)
[2021-02-22] MEDS ORDERED: ARTIFICAL TEARS 0.4 ML UNIT DOSE (REFRESH PLUS) OU PRN (09:15)
[2021-02-22] MEDS ORDERED: GLYCOPYRROLATE 0.2 MG/ML (ROBINUL) 2 ML VIAL IV PRN (09:15)
[2021-02-22] MEDS ORDERED: ONDANSETRON 4 MG/2 ML (SDV) Z0FRAN IVP PRN (09:15)
--- NOTE | 2021-02-22 12:26 | Progress Note ---
ENDER HENDRICKSON MED STUDENT 02/22/21 1226: Subjective Date Seen by a Provider: Feb 22, 2021 Time Seen by a Provider: 09:45 Subjective/Events-last exam Pt is laying in bed with several family members gathered in room. Pt has decided yesterday afternoon to swich to comfort care. Pts only new acute concern is back pain this morning which improved after pain medication. Pt to be transfered to fourth floor later today. Review of Systems General: No Chills, No Night Sweats Pulmonary: Dyspnea, Cough Cardiovascular: No: Chest Pain, Palpitations Gastrointestinal: No: Nausea, Vomiting Objective Exam Last Set of Vital Signs Vital Signs Date Time Temp Pulse Resp B/P (MAP) Pulse Ox O2 Delivery O2 Flow Rate FiO2 02/22/21 10:58 90 Vapotherm 40.00 100 02/22/21 09:00 83 29 154/73 (100) 02/22/21 07:43 36.3 Capillary Refill : Less Than 3 Seconds I&O Intake and Output 02/22/21 00:00 Intake Total 2000 ml Output Total 1375 ml Balance 625 ml Intake Oral 2000 ml Output Urine Total 1375 ml General: Alert, Oriented X3 Lungs: Other (wheezing, crackles b/l ) Heart: Regular Rate, No Murmurs Results Lab Laboratory Tests 02/22/21 05:30: White Blood Count 16.5H, Red Blood Count 2.89L, Hemoglobin 7.7L, Hematocrit 24L, Mean Corpuscular Volume 83, Mean Corpuscular Hemoglobin 27, Mean Corpuscular Hemoglobin Concent 32, Red Cell Distribution Width 17.6H, Platelet Count 256, Mean Platelet Volume 9.9, Immature Granulocyte % (Auto) 0, Neutrophils (%) (Auto) 95H, Lymphocytes (%) (Auto) 1L, Monocytes (%) (Auto) 4, Eosinophils (%) (Auto) 0, Basophils (%) (Auto) 0, Neutrophils # (Auto) 15.7H, Lymphocytes # (Auto) 0.2L, Monocytes # (Auto) 0.6, Eosinophils # (Auto) 0.0, Basophils # (Auto) 0.0, Immature Granulocyte # (Auto) 0.1, Sodium Level 135, Potassium Level 4.6, Chloride Level 95L, Carbon Dioxide Level 33H, Anion Gap 7, Blood Urea Nitrogen 31H, Creatinine 0.74, Estimat Glomerular Filtration Rate > 60, BUN/Creatinine Ratio 42, Glucose Level 145H, Calcium Level 8.5, Phosphorus Level 2.5, Magnesium Level 1.9 Microbiology 02/18/21 MRSA Screen - Final, Complete MRSA not isolated Assessment/Plan Assessment/Plan Assess & Plan/Chief Complaint AECOPD HAP Critical illness myopathy Patient has decided to proceed with comfort care. IV ABs discontinued. Pt to be transfered to fourth floor Ween pts oxygen requirement prior to discharge. Consult palliative care - pt will likely require home hospice care. Normocytic anemia PUD Hx of multiple hospitalizations for GI blood loss. Last time was - EGD showed gastritis as possible cause. Hgb 7.7 today from 7.8 yesterday. elevated BUN. Given RFs and labs, pt has probable UGIB Vs LGIB. Pt refused PPI and sucralfate this am. No further aggressive management indicated given comfort care status. Afib Hx of subacute CVA hx of RVR with subsequent cardioversion early . [id number] score 6. Cardiology following pt. Leukocytosis WBC 16.5 from 17.5 today. 2/2 HAP. hx of AUR BPH Kohler cath currently. NIDDM HTN HLD moderate-mild b/l ICA stenosis Clinical Quality Measures Admission Status Admission Dx Acute Respiratory Failure, HAP, AECOPD LAURA LAMBERT DO 02/23/21 0602: Subjective Subjective/Events-last exam Comfort care protocol maintained May need to be sent home on hospice Most family members in place Review of Systems General: Fatigue Pulmonary: Dyspnea Musculoskeletal: back pain Objective Exam General: Alert, Oriented X3, Cooperative, No Acute Distress Assessment/Plan Assessment/Plan Assess & Plan/Chief Complaint Comfort care Vapotherm wean Home on Hospice? Supervisory-Addendum Brief Verification & Attestation Participated in pt care: history, MDM, physical Personally performed: exam, history, MDM, supervision of care Care discussed with: Medical Student Procedures: n/a Results interpretation: Verified all documentation Verification and Attestation of Medical Student E/M Service A medical student performed and documented this service in my presence. I reviewed and verified all information documented by the medical student and made modifications to such information, when appropriate. I personally performed the physical exam and medical decision making. Laura Lambert, Feb 23, 2021,06:01 ENDER HENDRICKSON MED STUDENT Feb 22, 2021 12:26 LAURA LAMBERT DO Feb 23, 2021 06:02
--- NOTE | 2021-02-22 13:56 | Physician Query Clarification ---
Physician Query-General Query to Physician: The medical record reflects the following clinical scenario: The patient, in the setting of History/Risk factors, PNA, previous hospitalization Clinical Findings Admission VS/Labs HR 101, RR 40, BP 180/73, SpO2 100% sat on 100% bilevel T 38.1, WBC 27.1 LA 2.49, Treatment: Admission Solu-Medrol, fluconazole, vancomycin, Bumex IV, (Fluids not given) Question: Severe Sepsis is mentioned once in the chart, subjective note portion of the 02/21/2021 progress note. Is this diagnosis valid and the reason for admission? If you agree, please document in Progress Notes or Discharge Summary. 1. Yes; will document Severe Sepsis Present on admission secondary to Hospital acquired pneumonia in the Progress Notes/Discharge Summary 2. No; will continue to document Hospital acquired pneumonia in the Progress Notes/Discharge Summary 3. Other; will document explanation of clinical findings 4. Clinically undetermined; no explanation for clinical findings Please clarify and document your clinical opinion in the Progress Notes and Discharge Summary including the definitive and/or presumptive diagnosis, (suspected or probable), related to the above clinical findings. Please include clinical findings supporting your diagnosis. In responding to this query, please exercise your independent professional judgment. The purpose of this communication is to more accurately reflect the complexity of your patients condition. The fact that a question is asked does not imply that any particular answer is desired or expected. Please remember a lack of response to the above will prompt a phone page by CDI/coding staff Thank you for timely response to this clarification. Promise Lamar [phone] PHYSICIAN RESPONSE: Based on the clinical findings in the record, please respond to the query above on this document as an addendum. Physician Response: Physician Response 2 If you have questions please contact: Information Director: Ext: Thank you for your time and cooperation. Clinical Spiritual Minister/Information Director This is a permanent part of the medical record PROMISE LAMAR Feb 22, 2021 13:56 MARY LAMBERT DO Feb 22, 2021 20:17
[2021-02-22] MEDS: morphine INJ 4 MG/ML 1 ML (VIAL/SYRINGE) IV PRN ×3 (14:49→21:05)
[2021-02-22] MEDS: LORazepam INJ 2 MG/ML (ATIVAN) VIAL IVP PRN ×2 (15:04→21:09)
[2021-02-23] MEDS: LORazepam INJ 2 MG/ML (ATIVAN) VIAL IVP PRN (01:23)
[2021-02-23] MEDS: morphine INJ 4 MG/ML 1 ML (VIAL/SYRINGE) IV PRN ×3 (01:23→03:34)
[2021-02-23] MEDS: RT-ALBUTEROL/IPRATROPIUM 3 ML (DUONEB) VIAL INH SCH (01:58)
--- NOTE | 2021-02-23 10:29 | Discharge Summary ---
Diagnosis/Chief Complaint Date of Admission Feb 18, 2021 at 20:06 Date of Discharge Feb 23, 2021 at 06:25 Discharge Diagnosis Resp failure PNA CHF AF Reason Hospital Visit CC: Acute on chronic respiratory failure HPI: This is an 85yoWM who was in rehab, I had to transfer up to ICU due to respiratory distress and worsened pneumonia with sepsis. He had been found to have worsening pneumonia so I had placed him on Meropenem and Vancomycin empirically along with Eraxis and BiPAP was tolerated pretty well in transition to Vapotherm today. WC remains elevated at 28, CMP is within normal limits but lactic acid went from 2.5 to 1.6 today after fluid. He remains tachypneic. CXR appears to be consistent either worsened pneumonia. Vital signs remain stable. Procalcitonin was 0.58. Pt was given Bumex today. Discharge Summary Discharge Physical Examination Allergies: Coded Allergies: No Known Drug Allergies (Unverified , 06/15/20) Vitals & I&Os Vital Signs Date Time Temp Pulse Resp B/P (MAP) Pulse Ox O2 Delivery O2 Flow Rate FiO2 02/23/21 01:56 2.00 02/23/21 01:53 36.3 02/22/21 23:55 89 Vapotherm 95 02/22/21 09:00 83 29 154/73 (100) Hospital Course Was the Problem List Reviewed?: Yes Standard course after moved from IRF to ICU due to sepsis with acute on chronic resp failure. biPAP maintained along with Vapotherm. IV abx and IVF initiated. Cardiology and Pulmo consulted. Labs remained abnormal but stable. Lengthy discussions ensued and [place] was pursued but he decided he wanted to go on comfort care and that was initiated while family gathered and he . Labs (last 24 hrs) Laboratory Tests 02/18/21 20:23: Blood Gas Puncture Site LT RAD, Blood Gas Patient Temperature 36.1, Arterial Blood pH 7.49H, Arterial Blood Partial Pressure CO2 39, Arterial Blood Partial Pressure O2 73L, Arterial Blood HCO3 29H, Arterial Blood Total CO2 30.5, Arterial Blood Oxygen Saturation 97, Arterial Blood Base Excess 5.6H, Richard Test YES-POS, Blood Gas Ventilator Setting NO, Blood Gas Inspired Oxygen 80% BIPAP 02/18/21 20:35: White Blood Count 27.1H, Red Blood Count 3.70L, Hemoglobin 9.9L, Hematocrit 32L, Mean Corpuscular Volume 85, Mean Corpuscular Hemoglobin 27, Mean Corpuscular Hemoglobin Concent 31L, Red Cell Distribution Width 18.1H, Platelet Count 327, Mean Platelet Volume 9.7, Immature Granulocyte % (Auto) 1, Neutrophils (%) (Auto) 90H, Lymphocytes (%) (Auto) 5L, Monocytes (%) (Auto) 4, Eosinophils (%) (Auto) 0, Basophils (%) (Auto) 0, Neutrophils # (Auto) 24.3H, Lymphocytes # (Auto) 1.4, Monocytes # (Auto) 1.2H, Eosinophils # (Auto) 0.0, Basophils # (Auto) 0.0, Immature Granulocyte # (Auto) 0.2H, Sodium Level 131L, Potassium Level 4.8, Chloride Level 94L, Carbon Dioxide Level 26, Anion Gap 11, Blood Urea Nitrogen 18, Creatinine 0.83, Estimat Glomerular Filtration Rate > 60, BUN/Creatinine Ratio 22, Glucose Level 103, Lactic Acid Level 2.49*H, Calcium Level 9.0, Corrected Calcium 9.6, Total Bilirubin 0.4, Aspartate Amino Transf (AST/SGOT) 34, Alanine Aminotransferase (ALT/SGPT) 57H, Alkaline Phosphatase 77, Troponin I < 0.028, B-Type Natriuretic Peptide 424.9H, Total Protein 6.6, Albumin 3.2, Procalcitonin 0.58H 02/19/21 02:35: White Blood Count 28.6H, Red Blood Count 3.00L, Hemoglobin 8.0L, Hematocrit 25L, Mean Corpuscular Volume 84, Mean Corpuscular Hemoglobin 27, Mean Corpuscular Hemoglobin Concent 32, Red Cell Distribution Width 18.0H, Platelet Count 275, Mean Platelet Volume 9.9, Immature Granulocyte % (Auto) 1, Neutrophils (%) (Auto) 95H, Lymphocytes (%) (Auto) 2L, Monocytes (%) (Auto) 2, Eosinophils (%) (Auto) 0, Basophils (%) (Auto) 0, Neutrophils # (Auto) 27.2H, Lymphocytes # (Auto) 0.5L, Monocytes # (Auto) 0.7, Eosinophils # (Auto) 0.0, Basophils # (Auto) 0.1, Immature Granulocyte # (Auto) 0.3H, Sodium Level 134L, Potassium Level 4.3, Chloride Level 96L, Carbon Dioxide Level 29, Anion Gap 9, Blood Urea Nitrogen 19H, Creatinine 0.78, Estimat Glomerular Filtration Rate > 60, BUN/Creatinine Ratio 24, Glucose Level 104, Lactic Acid Level 1.60, Calcium [place] 8.2L, Corrected Calcium 9.3, Total Bilirubin 0.4, Aspartate Amino Transf (AST/SGOT) 41H, Alanine Aminotransferase (ALT/SGPT) 45, Alkaline Phosphatase 59, Total Protein 5.0L, Albumin 2.6L, Phosphorus Level 2.2L, Magnesium Level 1.5L 02/20/21 02:45: White Blood Count 20.9H, Red Blood Count 3.08L, Hemoglobin 8.3L, Hematocrit 26L, Mean Corpuscular Volume 83, Mean Corpuscular Hemoglobin 27, Mean Corpuscular Hemoglobin Concent 33, Red Cell Distribution Width 17.9H, Platelet Count 306, Mean Platelet Volume 9.8, Immature Granulocyte % (Auto) 1, Neutrophils (%) (Auto) 95H, Lymphocytes (%) (Auto) 2L, Monocytes (%) (Auto) 3, Eosinophils (%) (Auto) 0, Basophils (%) (Auto) 0, Neutrophils # (Auto) 19.8H, Lymphocytes # (Auto) 0.3L, Monocytes # (Auto) 0.6, Eosinophils # (Auto) 0.0, Basophils # (Auto) 0.0, Immature Granulocyte # (Auto) 0.1, Sodium Level 133L, Potassium Level 4.5, Chloride Level 94L, Carbon Dioxide Level 29, Anion Gap 10, Blood Urea Nitrogen 27H, Creatinine 0.80, Estimat Glomerular Filtration Rate > 60, BUN/Creatinine Ratio 34, Glucose Level 138H, Calcium Level 9.0, Phosphorus Level 3.5, Magnesium Level 2.1 02/21/21 02:25: White Blood Count 17.5H, Red Blood Count 2.95L, Hemoglobin 7.8L, Hematocrit 24L, Mean Corpuscular Volume 82, Mean Corpuscular Hemoglobin 26, Mean Corpuscular Hemoglobin Concent 32, Red Cell Distribution Width 17.8H, Platelet Count 287, Mean Platelet Volume 9.9, Immature Granulocyte % (Auto) 1, Neutrophils (%) (Auto) 95H, Lymphocytes (%) (Auto) 1L, Monocytes (%) (Auto) 3, Eosinophils (%) (Auto) 0, Basophils (%) (Auto) 0, Neutrophils # (Auto) 16.6H, Lymphocytes # (Auto) 0.2L, Monocytes # (Auto) 0.6, Eosinophils # (Auto) 0.0, Basophils # (Auto) 0.0, Immature Granulocyte # (Auto) 0.1, Sodium Level 135, Potassium Level 4.4, Chloride Level 94L, Carbon Dioxide Level 31, Anion Gap 10, Blood Urea Nit rogen 33H, Creatinine 0.80, Estimat Glomerular Filtration Rate > 60, BUN/Creatinine Ratio 41, Glucose Level 155H, Calcium Level 8.4L, Phosphorus Level 3.2, Magnesium Level 2.0, Iron Level 13L 02/22/21 05:30: White Blood Count 16.5H, Red Blood Count 2.89L, Hemoglobin 7.7L, Hematocrit 24L, Mean Corpuscular Volume 83, Mean Corpuscular Hemoglobin 27, Mean Corpuscular Hemoglobin Concent 32, Red Cell Distribution Width 17.6H, Platelet Count 256, Mean Platelet Volume 9.9, Immature Granulocyte % (Auto) 0, Neutrophils (%) (Auto) 95H, Lymphocytes (%) (Auto) 1L, Monocytes (%) (Auto) 4, Eosinophils (%) (Auto) 0, Basophils (%) (Auto) 0, Neutrophils # (Auto) 15.7H, Lymphocytes # (Auto) 0.2L, Monocytes # (Auto) 0.6, Eosinophils # (Auto) 0.0, Basophils # (Auto) 0.0, Immature Granulocyte # (Auto) 0.1, Sodium Level 135, Potassium Level 4.6, Chloride Level 95L, Carbon Dioxide Level 33H, Anion Gap 7, Blood Urea Nitrogen 31H, Creatinine 0.74, Estimat Glomerular Filtration Rate > 60, BUN/Creatinine Ratio 42, Glucose Level 145H, Calcium Level 8.5, Phosphorus Level 2.5, Magnesium Level 1.9 Microbiology 02/18/21 MRSA Screen - Final, Complete MRSA not isolated Pending Labs Microbiology Date/Time Source Procedure Growth Status 02/18/21 20:44 Nasal MRSA Screen - Final MRSA not isolated Complete Laboratory Tests 02/18/21 20:23: Blood Gas Puncture Site LT RAD, Blood Gas Patient Temperature 36.1, Arterial Blood pH 7.49, Arterial Blood Partial Pressure CO2 39, Arterial Blood Partial Pressure O2 73, Arterial Blood HCO3 29, Arterial Blood Total CO2 30.5, Arterial Blood Oxygen Saturation 97, Arterial Blood Base Excess 5.6, Richard Test YES-POS, Blood Gas Ventilator Setting NO, Blood Gas Inspired Oxygen 80% BIPAP 02/18/21 20:35: White Blood Count 27.1, Red Blood Count 3.70, Hemoglobin 9.9, Hematocrit 32, Mean Corpuscular Volume 85, Mean Corpuscular Hemoglobin 27, Mean Corpuscular Hemoglobin Concent 31, Red Cell Distribution Width 18.1, Platelet Count 327, Mean Platelet Volume 9.7, Immature Granulocyte % (Auto) 1, Neutrophils (%) (Auto) 90, Lymphocytes (%) (Auto) 5, Monocytes (%) (Auto) 4, Eosinophils (%) (Auto) 0, Basophils (%) (Auto) 0, Neutrophils # (Auto) 24.3, Lymphocytes # (Auto) 1.4, Monocytes # (Auto) 1.2, Eosinophils # (Auto) 0.0, Basophils # (Auto) 0.0, Immature Granulocyte # (Auto) 0.2, Sodium Level 131, Potassium Level 4.8, Chloride Level 94, Carbon Dioxide Level 26, Anion Gap 11, Blood Urea Nitrogen 18, Creatinine 0.83, Estimat Glomerular Filtration Rate > 60, BUN/Creatinine R atio 22, Glucose Level 103, Lactic Acid Level 2.49, Calcium Level 9.0, Corrected Calcium 9.6, Total Bilirubin 0.4, Aspartate Amino Transf (AST/SGOT) 34, Alanine Aminotransferase (ALT/SGPT) 57, Alkaline Phosphatase 77, Troponin I < 0.028, B- Type Natriuretic Peptide 424.9, Total Protein 6.6, Albumin 3.2, Procalcitonin 0.58 02/19/21 02:35: White Blood Count 28.6, Red Blood Count 3.00, Hemoglobin 8.0, Hematocrit 25, Mean Corpuscular Volume 84, Mean Corpuscular Hemoglobin 27, Mean Corpuscular Hemoglobin Concent 32, Red Cell Distribution Width 18.0, Platelet Count 275, Mean Platelet Volume 9.9, Immature Granulocyte % (Auto) 1, Neutrophils (%) (Auto) 95, Lymphocytes (%) (Auto) 2, Monocytes (%) (Auto) 2, Eosinophils (%) (Auto) 0, Basophils (%) (Auto) 0, Neutrophils # (Auto) 27.2, Lymphocytes # (Auto) 0.5, Monocytes # (Auto) 0.7, Eosinophils # (Auto) 0.0, Basophils # (Auto) 0.1, Immature Granulocyte # (Auto) 0.3, Sodium Level 134, Potassium Level 4.3, Chloride Level 96, Carbon Dioxide Level 29, Anion Gap 9, Blood Urea Nitrogen 19, Creatinine 0.78, Estimat Glomerular Filtration Rate > 60, BUN/Creatinine Ratio 24, Glucose Level 104, Lactic Acid Level 1.60, Calcium Level 8.2, Corrected Calcium 9.3, Total Bilirubin 0.4, Aspartate Amino Transf (AST/SGOT) 41, Alanine Aminotransferase (ALT/SGPT) 45, Alkaline Phosphatase 59, Total Protein 5.0, Albumin 2.6, Phosphorus Level 2.2, Magnesium Level 1.5 02/20/21 02:45: White Blood Count 20.9, Red Blood Count 3.08, Hemoglobin 8.3, Hematocrit 26, Mean Corpuscular Volume 83, Mean Corpuscular Hemoglobin 27, Mean Corpuscular Hemoglobin Concent 33, Red Cell Distribution Width 17.9, Platelet Count 306, Mean Platelet Volume 9.8, Immature Granulocyte % (Auto) 1, Neutrophils (%) (Auto) 95, Lymphocytes (%) (Auto) 2, Monocytes (%) (Auto) 3, Eosinophils (%) (Auto) 0, Basophils (%) (Auto) 0, Neutrophils # (Auto) 19.8, Lymphocytes # (Auto) 0.3, Monocytes # (Auto) 0.6, Eosinophils # (Auto) 0.0, Basophils # (Auto) 0.0, Immature Granulocyte # (Auto) 0.1, Sodium Level 133, Potassium Level 4.5, Chloride Level 94, Carbon Dioxide Level 29, Anion Gap 10, Blood Urea Nitrogen 27, Creatinine 0.80, Estimat Glomerular Filtration Rate > 60, BUN/Creatinine Ratio 34, Glucose Level 138, Calcium Level 9.0, Phosphorus Level 3.5, Magnesium Level 2.1 02/21/21 02:25: White Blood Count 17.5, Red Blood Count 2.95, Hemoglobin 7.8, Hematocrit 24, Mean Corpuscular Volume 82, Mean Corpuscular Hemoglobin 26, Mean Corpuscular Hemoglobin Concent 32, Red Cell Distribution Width 17.8, Platelet Count 287, Mean Platelet Volume 9.9, Immature Granulocyte % (Auto) 1, Neutrophils (%) (Auto) 95, Lymphocytes (%) (Auto) 1, Monocytes (%) (Auto) 3, Eosinophils (%) (Auto) 0, Basophils (%) (Auto) 0, Neutrophils # (Auto) 16.6, Lymphocytes # (Auto) 0.2, Monocytes # (Auto) 0.6, Eosinophils # (Auto) 0.0, Basophils # (Auto) 0.0, Immature Granulocyte # (Auto) 0.1, Sodium Level 135, Potassium Level 4.4, Chloride Level 94, Carbon Dioxide Level 31, Anion Gap 10, Blood Urea Nitrogen 33, Creatinine 0.80, Estimat Glomerular Filtration Rate > 60, BUN/Creatinine Ratio 41, Glucose Level 155, Calcium Level 8.4, Phosphorus Level 3.2, Magnesium Level 2.0, Iron Level 13 02/22/21 05:30: White Blood Count 16.5, Red Blood Count 2.89, Hemoglobin 7.7, Hematocrit 24, Mean Corpuscular Volume 83, Mean Corpuscular Hemoglobin 27, Mean Corpuscular Hemoglobin Concent 32, Red Cell Distribution Width 17.6, Platelet Count 256, Mean Platelet Volume 9.9, Immature Granulocyte % (Auto) 0, Neutrophils (%) ( Auto) 95, Lymphocytes (%) (Auto) 1, Monocytes (%) (Auto) 4, Eosinophils (%) (Auto) 0, Basophils (%) (Auto) 0, Neutrophils # (Auto) 15.7, Lymphocytes # (Auto) 0.2, Monocytes # (Auto) 0.6, Eosinophils # (Auto) 0.0, Basophils # (Auto) 0.0, Immature Granulocyte # (Auto) 0.1, Sodium Level 135, Potassium Level 4.6, Chloride Level 95, Carbon Dioxide Level 33, Anion Gap 7, Blood Urea Nitrogen 31, Creatinine 0.74, Estimat Glomerular Filtration Rate > 60, BUN/Creatinine Ratio 42, Glucose Level 145, Calcium Level 8.5, Phosphorus Level 2.5, Magnesium Level 1.9 Discharge Home Medications: Active Scripts Active Reported Proair Hfa (Albuterol Sulfate) 1 Puff Puff 2 Puff INH Q6H PRN Miralax (Polyethylene Glycol 3350) 17 Gm Powd.pack 17 Gm PO DAILY PRN Vitamin D3 (Cholecalciferol (Vitamin D3)) 50 Mcg Capsule 50 Mcg PO DAILY Tylenol Extra Strength (Acetaminophen) 500 Mg Tablet 500-1,000 Mg PO Q8H PRN [Bethanechol] 25 Tab 25 Mg PO 0700,1200 LAST FILLED 02-17-2020 #360/180 DAY SUPPLY Amiodarone HCl 200 Mg Tablet 200 Mg PO DAILY Diltiazem ER (Diltiazem HCl) 180 Mg Capsule.er 180 Mg PO DAILY Stool Softener (Docusate Sodium) 100 Mg Capsule 100 Mg PO DAILY PRN Metformin HCl ER (Metformin HCl) 500 Mg Tab.er.24h 500 Mg PO 1800 Eliquis (Apixaban) 2.5 Mg Tablet 2.5 Mg PO BID Alfuzosin HCl ER (Alfuzosin HCl) 10 Mg Tab.er.24h 10 Mg PO DAILY Atorvastatin Calcium 40 Mg Tablet 40 Mg PO HS Instructions to patient/family Please see electronic discharge instructions given to patient. MARY LAMBERT DO Feb 23, 2021 10:29
== END 2021-02-23 06:25 | disposition expired | DRG 193 ==
LOC: ICU 20:06 → 4TH 02-22 14:42
PROVIDERS: ADMIT Internal Medicine; ATTEND Internal Medicine
PROC: 5A09457 Assistance with Respiratory Ventilation, 24-96 Consecutive Hours, Continuous Positive Airway Pressure (ICD-10-PCS; principal; 2021-02-19)
DX: J18.9 Pneumonia, unspecified organism (principal); J96.20 Acute and chronic respiratory failure, unspecified whether with hypoxia or hypercapnia; J44.0 Chronic obstructive pulmonary disease with (acute) lower respiratory infection; G72.81 Critical illness myopathy; J44.1 Chronic obstructive pulmonary disease with (acute) exacerbation; J81.1 Chronic pulmonary edema; E87.1 Hypo-osmolality and hyponatremia; I48.92 Unspecified atrial flutter; Z51.5 Encounter for palliative care; Z66 Do not resuscitate; I25.10 Atherosclerotic heart disease of native coronary artery without angina pectoris; E78.00 Pure hypercholesterolemia, unspecified; Z86.73 Personal history of transient ischemic attack (TIA), and cerebral infarction without residual deficits; N40.0 Benign prostatic hyperplasia without lower urinary tract symptoms; K21.9 Gastro-esophageal reflux disease without esophagitis; K57.90 Diverticulosis of intestine, part unspecified, without perforation or abscess without bleeding; M19.90 Unspecified osteoarthritis, unspecified site; G89.29 Other chronic pain; M54.9 Dorsalgia, unspecified; E11.9 Type 2 diabetes mellitus without complications; Z79.84 Long term (current) use of oral hypoglycemic drugs; I27.20 Pulmonary hypertension, unspecified; E87.8 Other disorders of electrolyte and fluid balance, not elsewhere classified; E83.42 Hypomagnesemia; E83.39 Other disorders of phosphorus metabolism; D63.8 Anemia in other chronic diseases classified elsewhere; Z87.891 Personal history of nicotine dependence; R53.81 Other malaise; Z99.81 Dependence on supplemental oxygen; I48.0 Paroxysmal atrial fibrillation; I50.9 Heart failure, unspecified; I11.0 Hypertensive heart disease with heart failure
CPT/HCPCS: 36415; 36569; 71045; 76937; 80048; 80053; 82805; 83540; 83605; 83735; 83880; 84100; 84145; 84484; 85025; 87081; 93005; 94640; 94660